=== PATIENT | female | born 1975 | race Caucasian/White ===

== ENCOUNTER 2017-06-29 10:04 | Emergency (ER) | payer MEDICAID, OTHER ==
[2017-06-29 10:48] LABS: Urine Bacteria 1+ (Absent); Urine Bilirubin Negative (Negative); Urine Glucose Negative (Negative); Urine Nitrite Negative (Negative)
[2017-06-29 12:25] LABS: Hematocrit 35 % (35-47); Mean Corpuscular HGB Conc 34 g/dl (31-36); Mean Corpuscular Hemoglobin 32 pg (27-31); Mean Corpuscular Volume 93 fL (80-97); Mean Platelet Volume 8 um3 (7.4-10.4); Red Blood Count 3.78 10^6/ul (4.0-5.4); Red Cell Distribution Width 13 % (10.5-15); White Blood Count 9.2 10^3/ul (3.5-10.8)
[2017-06-29 12:39] LABS: ALT 7 U/L (7-52); AST 12 U/L (13-39); Albumin 3.5 g/dL (3.2-5.2); Alkaline Phosphatase 82 U/L (34-104); Anion Gap 9 mmol/L (2-11); Blood Urea Nitrogen 13 mg/dL (6-24); CO2 Carbon Dioxide 22 mmol/L (22-32); Calcium 8.8 mg/dL (8.6-10.3); Chloride 105 mmol/L (101-111); EGFR African American 100.7 (>60); EGFR Non-African American 78.3 (>60); Globulin 3.2 g/dL (2-4); Glucose 81 mg/dL (70-100); Potassium 3.5 mmol/L (3.5-5.0); Sodium 136 mmol/L (133-145); Total Protein 6.7 g/dL (6.4-8.9)
[2017-06-29 12:44] LABS: Benzodiazepine Urine Screen Presumptive Positive (None Detect)
[2017-06-29 12:59] LABS: Acetaminophen < 15 mcg/mL; Alcohol < 10 mg/dL (<10); Salicylate < 2.50 mg/dL (<30)
[2017-06-29] MEDS ORDERED: Ondansetron ODT TAB* 4 MG SL ONE (13:27)
[2017-06-29 14:35] VITALS: BP 141/78
--- NOTE | 2017-06-29 16:24 | ED ---
Psychiatric Complaint - HPI Summary HPI Summary: Patient presents to the ED with a multitude of complaints. She states she has been having N/V x 3 days, back pain, seizures for over 2 weeks (6-8 per day) although no history of such, unable to focus, vomiting blood and not eating. Father sent her here for a "psych eval," but she declines this. She is unable to tell us specifically her main complaint and fails to make eye contact. She is on many medications for psych. Hx of depression which she states has been worsening. VS stable except for tachy on arrival which abruptly came down to 95 on recheck. She is unable to state why she is feeling this way. - History Of Current Complaint Chief Complaint: EDPsychosocial Time Seen by Provider: 06/29/17 10:13 Hx Obtained From: Patient ?: No Onset/Duration: Gradual Onset Timing: Constant Severity Initially: Moderate Severity Currently: Moderate Character: Depressed, Angry, Frustrated, Lethargic, Stuporous Aggravating Factor(s): Therapy Non-compliance Alleviating Factor(s): Nothing Associated Signs And Symptoms: Positive: Confused, Social Withdrawal Has Suicidal: Denies: Thoughts, With A Plan Has Homicidal: Denies: Thoughts, With A Plan - Risk Factor(s) Completed Suicide Risk Factors: Negative - Allergies/Home Medications Allergies/Adverse Reactions: Allergies Allergy/AdvReac Type Severity Reaction Status Date / Time Erythromycin Allergy Severe Swelling Verified 03/05/13 01:30 Morphine Allergy Severe Itching Verified 03/05/13 01:30 Nitrofurantoin Allergy Severe Swelling Verified 03/05/13 01:30 [From Macrobid] Metoclopramide [From Reglan] Allergy Intermediate Itching Verified 03/05/13 01: 30 NSAIDs Allergy Intermediate Bleeding Verified 03/05/13 01:30 Terbutaline Allergy Unknown Unknown Verified 03/05/13 01:30 Reaction Details PMH/Surg Hx/FS Hx/Imm Hx Previously Healthy: Yes Endocrine/Hematology History: Reports: Hx Blood Transfusions, Hx Thyroid Disease - hypothyoidism, Hx Anemia Denies: Hx Anticoagulant Therapy, Hx Diabetes Cardiovascular History: Reports: Hx Cardiac Arrest - multiple times during surgery, Other Cardiovascular Problems/Disorders - 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 Denies: Hx Congestive Heart Failure, Hx Hypertension, Hx Pacemaker/ICD Respiratory History: Denies: Hx Asthma, Hx Chronic Obstructive Pulmonary Disease (COPD) GI History: Reports: Hx Gall Bladder Disease - REMOVAL, Hx Gastroesophageal Reflux Disease, Hx Irritable Bowel, Hx Obstructive Bowel, Other GI Disorders - SBOx2, incarcerated hernia, gastric bypass, jeronimo, appy, hysterectomy History: Reports: Hx Acute Renal Failure Denies: Hx Dialysis, Hx Renal Disease, Other Problems/Disorders Musculoskeletal History: Reports: Hx Arthritis, Other Musculoskeletal History - carpal tunnel Sensory History: Reports: Hx Contacts or Glasses Denies: Hx Hearing Aid Opthamlomology History: Reports: Hx Contacts or Glasses Neurological History: Reports: Hx Headaches Denies: Hx Dementia, Hx Seizures, Other Neuro Impairments/Disorders Psychiatric History: Reports: Hx Depression Denies: Hx Panic Disorder, Hx Substance Abuse - Surgical History Surgery Procedure, Year, and Place: APPENDIX A CHILD,GALLBLADDER 10 YRS AGO, GASTRIC BYPASS 11 YRS AGO,TUBAL 2006,PARTIAL HYSTERECTOMY 2006,2 HERNIA SURGERIES,9 INTESTINAL SURGERYS IN 2008 DONE AT [facility] DUE TO COMPLICATIONS OF GASTRIC BYPASS SURGERY. APPENDECTOMY & CHOLESECETOMY. Hx Anesthesia Reactions: No - Immunization History Date of Tetanus Vaccine: uknown Date of Influenza Vaccine: last year Hx Pertussis Vaccination: No Immunizations Up to Date: Unable to Obtain/Confirm Infectious Disease History: No Infectious Disease History: Reports: Hx of Known/Suspected MRSA - PER RECORDS, Hx Shingles, Hx Known/Suspected VRE Denies: Hx Hepatitis, Hx Human Immunodeficiency Virus (HIV), Traveled Outside the [place] in Last 30 Days - Social History Occupation: Unemployed Lives: Alone Alcohol Use: Rare Hx Substance Use: No Substance Use Type: Reports: None Hx Tobacco Use: Yes Smoking Status (MU): Light Every Day Tobacco Smoker Have You Smoked in the Last Year: No Review of Systems Positive: Fatigue. Negative: Fever, Chills Eyes: Negative ENT: Negative Cardiovascular: Negative Negative: Shortness Of Breath, Cough Positive: Vomiting - hematemesis, Nausea. Negative: Abdominal Pain, Diarrhea Positive: no symptoms reported, see HPI Positive: Arthralgia - back pain Skin: Negative Neurological: Other - seizures Psychological: Normal All Other Systems Reviewed And Are Negative: Yes Physical Exam Triage Information Reviewed: Yes Vital Signs On Initial Exam: Initial Vitals Temp Pulse Resp BP Pulse Ox 97.7 F 130 17 138/65 97 06/29/17 10:05 06/29/17 10:05 06/29/17 10:05 06/29/17 10:05 06/29/17 10:05 Vital Signs Reviewed: Yes Appearance: Positive: Well-Appearing, Well-Nourished Skin: Positive: Warm, Skin Color Reflects Adequate Perfusion Head/Face: Positive: Normal Head/Face Inspection Eyes: Positive: EOMI, THI, Conjunctiva Clear Neck: Positive: Supple, No Lymphadenopathy Respiratory/Lung Sounds: Positive: Clear to Auscultation, Breath Sounds Present Cardiovascular: Positive: RRR, Pulses are Symmetrical in both Upper and Lower Extremities Abdomen Description: Positive: Soft Musculoskeletal: Positive: Strength/ROM Intact Neurological: Positive: Slurred Speech Psychiatric: Positive: Normal - Zakiya Coma Scale Coma Scale Total: 15 Diagnostics - Vital Signs Vital Signs Temp Pulse Resp BP Pulse Ox 06/29/17 14:33 98.3 F 98 16 141/78 100 06/29/17 10:05 97.7 F 130 17 138/65 97 - Laboratory Lab Results: Lab Results 06/29/17 06/29/17 06/29/17 Range/Units 10:20 10:20 10:20 WBC 9.2 (3.5-10.8) 10^3/ul RBC 3.78 L (4.0-5.4) 10^6/ul Hgb 12.0 (12.0-16.0) g/dl Hct 35 (35-47) % MCV 93 (80-97) fL MCH 32 H (27-31) pg MCHC 34 (31-36) g/dl RDW 13 (10.5-15) % Plt Count 247 (150-450) 10^3/ul MPV 8 (7.4-10.4) um3 Neut % (Auto) 79.7 (38-83) % Lymph % (Auto) 12.4 L (25-47) % [place] % (Auto) 7.0 (1-9) % Eos % (Auto) 0 (0-6) % Baso % (Auto) 0.9 (0-2) % Absolute Neuts (auto) 7.3 (1.5-7.7) 10^3/ul Absolute Lymphs (auto) 1.1 (1.0-4.8) 10^3/ul Absolute Monos (auto) 0.6 (0-0.8) 10^3/ul Absolute Eos (auto) 0 (0-0.6) 10^3/ul Absolute Basos (auto) 0.1 (0-0.2) 10^3/ul Absolute Nucleated RBC 0 10^3/ul Nucleated RBC % 0 Sodium 136 (133-145) mmol/L Potassium 3.5 (3.5-5.0) mmol/L Chloride 105 (101-111) mmol/L Carbon Dioxide 22 (22-32) mmol/L Anion Gap 9 (2-11) mmol/L BUN 13 (6-24) mg/dL Creatinine 0.81 (0.51-0.95) mg/dL Est GFR ( Amer) 100.7 (>60) Est GFR (Non-Af Amer) 78.3 (>60) BUN/Creatinine Ratio 16.0 (8-20) Glucose 81 (70-100) mg/dL Calcium 8.8 (8.6-10.3) mg/dL Total Bilirubin 0.60 (0.2-1.0) mg/dL AST 12 L (13-39) U/L ALT 7 (7-52) U/L Alkaline Phosphatase 82 (34-104) U/L Total Protein 6.7 (6.4-8.9) g/dL Albumin 3.5 (3.2-5.2) g/dL Globulin 3.2 (2-4) g/dL Albumin/Globulin Ratio 1.1 (1-3) TSH 3.30 (0.34-5.60) mcIU/mL Urine Color Yellow Urine Appearance Cloudy Urine pH 5.0 (5-9) Ur Specific [place] 1.021 (1.010-1.030) Urine Protein 2+(100 mg/dl) H (Negative) Urine Ketones Trace H (Negative) Urine Blood Negative (Negative) Urine Nitrate Negative (Negative) Urine Bilirubin Negative (Negative) Urine Urobilinogen Positive H (Negative) Ur Leukocyte Esterase Negative (Negative) Urine WBC (Auto) 1+(6-10/hpf) H (Absent) Urine RBC (Auto) 3+(>10/hpf) H (Absent) Ur Squamous Epith Cells Present H (Absent) Urine Bacteria 1+ H (Absent) Hyaline Casts Present H (Absent) Urine Glucose Negative (Negative) Salicylates < 2.50 (<30) mg/dL Urine Opiates Screen (None Detect) Acetaminophen < 15 mcg/mL Ur Barbiturates Screen (None Detect) Ur Phencyclidine Scrn (None Detect) Ur Amphetamines Screen (None Detect) U Benzodiazepines Scrn (None Detect) Urine Cocaine Screen (None Detect) U Cannabinoids Screen (None Detect) Serum Alcohol < 10 (<10) mg/dL 06/29/17 Range/Units 10:20 WBC (3.5-10.8) 10^3/ul RBC (4.0-5.4) 10^6/ul Hgb (12.0-16.0) g/dl Hct (35-47) % MCV (80-97) fL MCH (27-31) pg MCHC (31-36) g/dl RDW (10.5-15) % Plt Count (150-450) 10^3/ul MPV (7.4-10.4) um3 Neut % (Auto) (38-83) % Lymph % (Auto) (25-47) % [place] % (Auto) (1-9) % Eos % (Auto) (0-6) % Baso % (Auto) (0-2) % Absolute Neuts (auto) (1.5-7.7) 10^3/ul Absolute Lymphs (auto) (1.0-4.8) 10^3/ul Absolute Monos (auto) (0-0.8) 10^3/ul Absolute Eos (auto) (0-0.6) 10^3/ul Absolute Basos (auto) (0-0.2) 10^3/ul Absolute Nucleated RBC 10^3/ul Nucleated RBC % Sodium (133-145) mmol/L Potassium (3.5-5.0) mmol/L Chloride (101-111) mmol/L Carbon Dioxide (22-32) mmol/L Anion Gap (2-11) mmol/L BUN (6-24) mg/dL Creatinine (0.51-0.95) mg/dL Est GFR ( Amer) (>60) Est GFR (Non-Af Amer) (>60) BUN/Creatinine Ratio (8-20) Glucose (70-100) mg/dL Calcium (8.6-10.3) mg/dL Total Bilirubin (0.2-1.0) mg/dL AST (13-39) U/L ALT (7-52) U/L Alkaline Phosphatase (34-104) U/L Total Protein (6.4-8.9) g/dL Albumin (3.2-5.2) g/dL Globulin (2-4) g/dL Albumin/Globulin Ratio (1-3) TSH (0.34-5.60) mcIU/mL Urine Color Urine Appearance Urine pH (5-9) Ur Specific [place] (1.010-1.030) Urine Protein (Negative) Urine Ketones (Negative) Urine Blood (Negative) Urine Nitrate (Negative) Urine Bilirubin (Negative) Urine Urobilinogen (Negative) Ur Leukocyte Esterase (Negative) Urine WBC (Auto) (Absent) Urine RBC (Auto) (Absent) Ur Squamous Epith Cells (Absent) Urine Bacteria (Absent) Hyaline Casts (Absent) Urine Glucose (Negative) Salicylates (<30) mg/dL Urine Opiates Screen None detected (None Detect) Acetaminophen mcg/mL Ur Barbiturates Screen None detected (None Detect) Ur Phencyclidine Scrn None detected (None Detect) Ur Amphetamines Screen None detected (None Detect) U Benzodiazepines Scrn Presumptive positive H (None Detect) Urine Cocaine Screen None detected (None Detect) U Cannabinoids Screen None detected (None Detect) Serum Alcohol (<10) mg/dL Result Diagrams: 06/29/17 10:20 06/29/17 10:20 Lab Statement: Any lab studies that have been ordered have been reviewed, and results considered in the medical decision making process. Course/Dx - Course Course Of Treatment: Patient presents to the ED with a multitude of complaints. She states she has been having N/V x 3 days, back pain, seizures for over 2 weeks (6-8 per day) although no history of such, unable to focus, vomiting blood and not eating. Father sent her here for a "psych eval," but she declines this. She is unable to tell us specifically her main complaint and fails to make eye contact. She is on many medications for psych. Hx of depression which she states has been worsening. VS stable except for tachy on arrival which abruptly came down to 95 on recheck. She is unable to state why she is feeling this way. During the course of treatment, patient was offered zofran and tylenol both of which she declined. She is agreeable to a lab draw. Declines CT of the brain although states she has been having seizures and recently fell this morning and hit her head. When asked why she thinks she is having seizures, she becomes upset and states her son has seizures so she knows what they feel like. She states she has had 6 seizures since arriving in the ED , however RN, triage and provider all did not witness any seizure like activity. She states she needs medication for her back pain, but refuses tylenol when offered and begins to cry. I have discussed obtaining a CT and she becomes upset. I have offered psych consult and she abruptly states she does not want a psych consult and is not suicidal. Discussed her list of medications and likely the reason she is feeling that she is unable to concentrate is likely d/t the medications. She denies this and states if we are not willing to help her, she will just leave. She agrees to the 1 dose of zofran, but declines other offers. No vomiting was witneseed in the ED although she states she has vomited blood twice since arrival. There are no abrasions or bruising indicating a fall. She is discharged at this time and I have encouraged her to return if symptoms worsen. I have implored she stay and receive a psychiatric evaluation to which she again declines. - Differential Dx/Clinical Impression Differential Diagnosis/HQI/PQRI: Positive: Depression, Other - multiple complaints Provider Diagnosis: Back pain, Depressed Discharge - Discharge Plan Condition: Stable Disposition: HOME Referrals: Nguyễn CHOWDARY,Zac Velazquez [Primary Care Provider] - Additional Instructions: Please follow up with PCP
== END 2017-06-29 14:33 | disposition home or self-care (01) ==
LOC: ED 10:04
DX: M54.9 Dorsalgia, unspecified (principal); F32.9 Major depressive disorder, single episode, unspecified; F17.200 Nicotine dependence, unspecified, uncomplicated; Z88.6 Allergy status to analgesic agent; Z88.3 Allergy status to other anti-infective agents; Z88.8 Allergy status to other drugs, medicaments and biological substances
CPT/HCPCS: 36415; 80053; 80307; 80320; 80329; 81003; 81015; 84443; 85025; 87086; 99282; A9270-GY; G0480

== ENCOUNTER 2017-07-02 20:32 | Emergency (ER) | payer OTHER ==
[2017-07-02] MEDS ORDERED: LORazepam TAB(*) 1 MG PO ONE (21:37)
--- NOTE | 2017-07-02 21:41 | ED ---
Psychiatric Complaint - HPI Summary HPI Summary: 41F presents with suicidal ideation for past couple days. She states she has been more depressed lately. She denies any plan. She states two weeks ago she took some of her pills for a suicide attempt. She states she is having suicidal thoughts though. She normally goes to [facility] and is admitted there for . She lives with her dad and dad encouraged her to come into ED. She denies any drug or ETOH use. She saw her psychiatrist today. - History Of Current Complaint Chief Complaint: EDMentalHealth Time Seen by Provider: 07/02/17 21:29 - Allergies/Home Medications Allergies/Adverse Reactions: Allergies Allergy/AdvReac Type Severity Reaction Status Date / Time Erythromycin Allergy Severe Swelling Verified 07/02/17 20:40 Morphine Allergy Severe Itching Verified 07/02/17 20:40 Nitrofurantoin Allergy Severe Swelling Verified 07/02/17 20:40 [From Macrobid] Metoclopramide [From Reglan] Allergy Intermediate Itching Verified 07/02/17 20: 40 NSAIDs Allergy Intermediate Bleeding Verified 07/02/17 20:40 Terbutaline Allergy Unknown Unknown Verified 07/02/17 20:40 Reaction Details Home Medications: Home Medications clonazePAM TAB(*) [KlonoPIN TAB(*)] 0.5 mg PO BEDTIME PRN 07/02/17 [History Confirmed 07/02/17] PMH/Surg Hx/FS Hx/Imm Hx Endocrine/Hematology History: Reports: Hx Blood Transfusions, Hx Thyroid Disease - hypothyoidism, Hx Anemia Denies: Hx Anticoagulant Therapy, Hx Diabetes Cardiovascular History: Reports: Hx Cardiac Arrest - multiple times during surgery, Other Cardiovascular Problems/Disorders - 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 Denies: Hx Congestive Heart Failure, Hx Hypertension, Hx Pacemaker/ICD Respiratory History: Denies: Hx Asthma, Hx Chronic Obstructive Pulmonary Disease (COPD) GI History: Reports: Hx Gall Bladder Disease - REMOVAL, Hx Gastroesophageal Reflux Disease, Hx Irritable Bowel, Hx Obstructive Bowel, Other GI Disorders - SBOx2, incarcerated hernia, gastric bypass, jeronimo, appy, hysterectomy History: Reports: Hx Acute Renal Failure Denies: Hx Dialysis, Hx Renal Disease, Other Problems/Disorders Musculoskeletal History: Reports: Hx Arthritis, Other Musculoskeletal History - carpal tunnel Sensory History: Reports: Hx Contacts or Glasses Denies: Hx Hearing Aid Opthamlomology History: Reports: Hx Contacts or Glasses Neurological History: Reports: Hx Headaches Denies: Hx Dementia, Hx Seizures, Other Neuro Impairments/Disorders Psychiatric History: Reports: Hx Depression Denies: Hx Panic Disorder, Hx Substance Abuse - Surgical History Surgery Procedure, Year, and Place: APPENDIX A CHILD,GALLBLADDER 10 YRS AGO, GASTRIC BYPASS 11 YRS AGO,TUBAL 2006,PARTIAL HYSTERECTOMY 2006,2 HERNIA SURGERIES,9 INTESTINAL SURGERYS IN 2009 DONE AT [facility] DUE TO COMPLICATIONS OF GASTRIC BYPASS SURGERY. APPENDECTOMY & CHOLESECETOMY. Hx Anesthesia Reactions: No - Immunization History Date of Tetanus Vaccine: uknow Date of Influenza Vaccine: last year Infectious Disease History: Yes Infectious Disease History: Reports: Hx of Known/Suspected MRSA - PER RECORDS, Hx Shingles, Hx Known/Suspected VRE Denies: Hx Hepatitis, Hx Human Immunodeficiency Virus (HIV), Traveled Outside the [place] in Last 30 Days - Family History Known Family History: Positive: Other - no history of depression - Social History Alcohol Use: Rare Hx Substance Use: No Substance Use Type: Reports: None Hx Tobacco Use: Yes Smoking Status (MU): Light Every Day Tobacco Smoker Have You Smoked in the Last Year: No Review of Systems Negative: Fever Negative: Chest Pain Negative: Shortness Of Breath Positive: Depressed All Other Systems Reviewed And Are Negative: Yes Physical Exam Triage Information Reviewed: Yes Vital Signs On Initial Exam: Initial Vitals Temp Pulse Resp BP Pulse Ox 97.4 F 88 16 126/92 98 07/02/17 20:35 07/02/17 20:35 07/02/17 20:35 07/02/17 20:35 07/02/17 20:35 Vital Signs Reviewed: Yes Appearance: Positive: Well-Appearing Skin: Positive: Warm, Dry Head/Face: Positive: Normal Head/Face Inspection Eyes: Positive: Normal, Conjunctiva Clear Respiratory/Lung Sounds: Positive: Clear to Auscultation, Breath Sounds Present Cardiovascular: Positive: Normal, RRR Abdomen Description: Positive: Nontender, Soft Bowel Sounds: Positive: Present Musculoskeletal: Positive: Normal Neurological: Positive: Normal Psychiatric: Positive: Depressed Diagnostics - Vital Signs Vital Signs Temp Pulse Resp BP Pulse Ox 07/02/17 20:35 97.4 F 88 16 126/92 98 - Laboratory Result Diagrams: 07/02/17 22:06 07/02/17 22:06 Lab Statement: Any lab studies that have been ordered have been reviewed, and results considered in the medical decision making process. Re-Evaluation - Re-Evaluation First Eval Re-Evaluation Time: 21:42 Change: Unchanged Comment: requested something for anxiety Course/Dx - Course Course Of Treatment: 41F presents with suicidal ideation for past couple days. She states she has been more depressed lately. She denies any plan. She states two weeks ago she took some of her pills. She normally goes to [facility] and is admitted there for . She lives with her dad. She denies any drug or ETOH use. She saw her psychiatrist today. patient is medically clear for [facility]. patient signed out to dr Euceda pending MH re-evaulation in morning. - Differential Dx/Clinical Impression Differential Diagnosis/HQI/PQRI: Positive: Anxiety, Depression, Suicidal Ideation Provider Diagnosis: Depression Discharge - Discharge Plan Condition: Stable Disposition: OTHER Discharge Disposition Comment: signed out to dr euceda pending MH re-evulation in morning Referrals: Nguyễn CHOWDARY,Zac Velazquez [Primary Care Provider] -
[2017-07-02 22:22] LABS: Urine Appearance Cloudy; Urine Blood Negative (Negative); Urine Color Yellow; Urine Ketones Trace (Negative); Urine Protein 1+(30 mg/dL) (Negative); Urine Specific Gravity 1.026 (1.010-1.030); Urine Urobilinogen Positive (Negative)
[2017-07-02 22:30] LABS: ABS Basophils 0 10^3/ul (0-0.2); ABS Eosinophils 0.1 10^3/ul (0-0.6); ABS Lymphocytes 1.4 10^3/ul (1.0-4.8); ABS Monocytes 0.5 10^3/ul (0-0.8); ABS Neutrophils 6.1 10^3/ul (1.5-7.7); ABS Nucleated RBC 0.01 10^3/ul; Eosinophil % 0.6 % (0-6); Hematocrit 30 % (35-47); Hemoglobin 10.5 g/dl (12.0-16.0); Lymphocyte % 17.7 % (25-47); Mean Corpuscular HGB Conc 35 g/dl (31-36); Mean Corpuscular Hemoglobin 32 pg (27-31); Mean Corpuscular Volume 94 fL (80-97); Mean Platelet Volume 8 um3 (7.4-10.4); Nucleated Red Blood Cells % 0.1; Platelet Count 201 10^3/ul (150-450); Red Blood Count 3.25 10^6/ul (4.0-5.4); Red Cell Distribution Width 13 % (10.5-15); White Blood Count 8.2 10^3/ul (3.5-10.8)
[2017-07-02 22:40] LABS: EGFR Non-African American 110.7 (>60)
[2017-07-02 23:45] VITALS: BP 105/67
[2017-07-03] MEDS ORDERED: clonazePAM TAB(*) 0.5 MG PO ONE (00:14)
[2017-07-03] MEDS ORDERED: Zolpidem TAB* 10 MG PO ONE (00:14)
--- NOTE | 2017-07-03 03:03 | UC ---
IRoby Tecjoon, scribed for Erma Euceda MD on 07/03/17 at 0248 . - Consult/PCP Time Called: 20:30 Re-Evaluation - Re-Evaluation First Eval Re-Evaluation Time: 21:42 Change: Unchanged Comment: requested something for anxiety Course/Dx - Course Course Of Treatment: 41F presents with suicidal ideation for past couple days. She states she has been more depressed lately. She denies any plan. She states two weeks ago she took some of her pills. She normally goes to [facility] and is admitted there for . She lives with her dad. She denies any drug or ETOH use. She saw her psychiatrist today. patient is medically clear for [facility]. [facility] has diagnosed patient with psychosis. - Diagnoses Provider Diagnoses: Psychosis - Provider Notifications Instructed by Provider To: Other - admitted to [facility] The documentation as recorded by the Roby potter Tecjoon accurately reflects the service I personally performed and the decisions made by , Erma Euceda MD.
--- NOTE | 2017-07-03 10:17 | PN ---
Progress Note - Progress Note Date of Service: 07/03/17 Note: Psych Progress Note: Subjective: Patient denies any complaints or concerns at this time. Reports she is anxious at this time and would like something for anxiety. No additions to medical plan established for patient. Slept well. Eating and drinking OK. Objective: VS stable No change to current medications Alert and cooperative and resting comfortably. Appearance: WDW, comfortable, pleasant, alert Skin: Soft dry skin, no lesions. Eyes: THI, EOMI, Conjunctiva pink with no redness or exudates. Neck: Full range of motion. Pulm: Chest symmetrical expansion. No deformities on posterior chest wall. Lungs clear to auscultation and percussion, without adventitious sounds. CV: Heart soundsRRR, Normal S1 and single S2. No S3, S4, rubs, or murmurs. Musculoskeletal: ROM WNL in all extremities. No deformities noted. Neuro: A&OX3 Psych: Logical, coherent Assessment: Patient has participated in plan with compliance to medications while awaiting assessment. Dx at this time remains anxiety, increased depression and suicidal ideations. Plan: Continue mediations as prescribed. Will continue to monitor psych behaviors and need for any medication. Will provide a patient to provider assessment within every 24 hours during stay until safe discharge/transfer/ admission plan is established. At this time, plan to be discharge is this morning.
[2017-07-03] MEDS ORDERED: LORazepam TAB(*) 1 MG PO ONE (10:46)
== END 2017-07-03 11:43 ==
LOC: ED 20:32
DX: F29 Unspecified psychosis not due to a substance or known physiological condition (principal)
CPT/HCPCS: 36415; 80053; 80307; 80320; 80329; 81003; 81015; 84443; 85025; 99284; A9270-GY; G0480

== ENCOUNTER 2017-07-30 14:46 | Emergency (ER) | payer MEDICAID, OTHER ==
[2017-07-30] MEDS ORDERED: HYDROmorphone INJ* 2 MG/ML CARPUJECT SYRINGE IV SLOW PU ONE ×2 (16:43→21:28)
[2017-07-30 16:53] LABS: ABS Basophils 0 10^3/ul (0-0.2); ABS Eosinophils 0.1 10^3/ul (0-0.6); ABS Lymphocytes 1.7 10^3/ul (1.0-4.8); ABS Monocytes 0.5 10^3/ul (0-0.8); ABS Neutrophils 3.8 10^3/ul (1.5-7.7); ABS Nucleated RBC 0 10^3/ul; Eosinophil % 1.3 % (0-6); Hematocrit 30 % (35-47); Hemoglobin 10.4 g/dl (12.0-16.0); Lymphocyte % 27.6 % (25-47); Mean Corpuscular HGB Conc 34 g/dl (31-36); Mean Corpuscular Hemoglobin 32 pg (27-31); Mean Corpuscular Volume 93 fL (80-97); Mean Platelet Volume 9 um3 (7.4-10.4); Nucleated Red Blood Cells % 0; Platelet Count 187 10^3/ul (150-450); Red Blood Count 3.27 10^6/ul (4.0-5.4); Red Cell Distribution Width 14 % (10.5-15); White Blood Count 6.1 10^3/ul (3.5-10.8)
[2017-07-30 17:08] LABS: EGFR Non-African American 106.6 (>60)
[2017-07-30] MEDS ORDERED: Iohexol 300* (CONTRAST) 10 ML SDV IV ONE (19:36)
[2017-07-30] MEDS ORDERED: NS 0.9% 1000 ML* 2,000 ML IV ONE (19:42)
[2017-07-30 20:56] LABS: Urine Appearance Cloudy; Urine Blood Negative (Negative); Urine Color Yellow; Urine Ketones Negative (Negative); Urine Protein Negative (Negative); Urine Specific Gravity 1.017 (1.010-1.030); Urine Urobilinogen Positive (Negative)
--- NOTE | 2017-07-30 21:34 | RAD ---
Indication: Left upper quadrant pain contrast: Administered 97.2 ml of OMNIPAQUE 300 mg/ml CT of the abdomen and pelvis was performed after oral and IV contrast administration. Coronal and sagittal reconstructed images were obtained. The lung bases demonstrate no pleural fluid, nodules or masses. Heart is of normal size without evidence of pericardial effusion. The liver is normal in size. No focal lesions or intrahepatic ductal dilatation is noted. The spleen is normal in size. The patient status post cholecystectomy. The pancreas demonstrates no mass or pancreatic duct dilatation. The common duct is not dilated. No adrenal lesions are noted. The kidneys demonstrate symmetric nephrograms without focal lesions. No hydronephrosis is noted. No retroperitoneal lymphadenopathy is noted. No dilated loops of bowel are noted. There is contrast in the colon. Patient is status post gastric bypass surgery. Aorta and inferior vena cava are unremarkable. CT of the pelvis demonstrates no retroperitoneal or pelvic lymphadenopathy. No dilated loops of bowel are noted. There is stool throughout the colon. No hernias are noted. Patient is status post appendectomy. No free fluid is identified in the pelvis. The bony structures are grossly unremarkable. IMPRESSION: NO EVIDENCE OF BOWEL OBSTRUCTION. PATIENT IS STATUS POST CHOLECYSTECTOMY AND GASTRIC BYPASS SURGERY. NO ABNORMALLY DILATED LOOPS OF BOWEL ARE NOTED.
[2017-07-30] MEDS ORDERED: Sucralfate TAB* 1 GM PO ONE (22:18)
[2017-07-30 23:10] VITALS: BP 106/77
--- NOTE | 2017-08-11 14:12 | ED ---
Sanya Vital Stephanie, scribed for Aaron Felder MD on 07/30/17 at 1747 . Abdominal Pain/Female - HPI Summary HPI Summary: The pt is a 41 y/o F BIBA transferred from [facility] with severe LUQ pain and hematemesis. She was guaiac negative at [place]. H&H 10 at baseline. She was transferred because [place] CT scanner down. She requires CT abd/pelvis. The pt reports that her abd pain began 4 days ago on 07/26/17, is constant, and has gotten progressively worse. She reports that her abd pain radiates to her stomach and back. Symptoms include diaphoresis and dehydration. The pt has a history of gastric bypass. - History of Current Complaint Chief Complaint: EDAbdPain Stated Complaint: ABD PAIN FROM MALCOM Time Seen by Provider: 07/30/17 16:02 Hx Obtained From: Patient Onset/Duration: Lasting Days - 4, Still Present Timing: Constant Pain Intensity: 10 Pain Scale Used: 0-10 Numeric Location: Discrete At: LUQ Radiates: Yes Radiates to: Back, Other - diffusely through abdomen Aggravating Factor(s): Nothing Alleviating Factor(s): Nothing Associated Signs and Symptoms: Positive: Diaphoresis, Vomiting - bloody, Other: - dehydration Allergies/Adverse Reactions: Allergies Allergy/AdvReac Type Severity Reaction Status Date / Time Erythromycin Allergy Severe Swelling Verified 07/02/17 20:40 Morphine Allergy Severe Itching Verified 07/02/17 20:40 Nitrofurantoin Allergy Severe Swelling Verified 07/02/17 20:40 [From Macrobid] Metoclopramide [From Reglan] Allergy Intermediate Itching Verified 07/02/17 20: 40 NSAIDs Allergy Intermediate Bleeding Verified 07/02/17 20:40 Terbutaline Allergy Unknown Unknown Verified 07/02/17 20:40 Reaction Details Home Medications: Home Medications Folic Acid TAB* [Folvite TAB*] 1 mg PO DAILY 07/30/17 [History Confirmed ] QUEtiapine TAB* [SEROquel TAB*] 25 mg PO BID 07/30/17 [History Confirmed ] buPROPion TAB* [Wellbutrin TAB*] 300 mg PO DAILY 07/30/17 [History Confirmed ] hydrOXYzine HCL TAB* [Atarax 25 MG TAB*] 25 mg PO BID 07/30/17 [History Confirmed 07/30/17] risperiDONE TAB* [RisperDAL*] 3 mg PO DAILY 07/30/17 [History Confirmed 07/30/17 ] PMH/Surg Hx/FS Hx/Imm Hx Endocrine/Hematology History: Reports: Hx Blood Transfusions, Hx Thyroid Disease - hypothyoidism, Hx Anemia Denies: Hx Anticoagulant Therapy, Hx Diabetes Cardiovascular History: Reports: Hx Cardiac Arrest - multiple times during surgery, Other Cardiovascular Problems/Disorders - 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 Denies: Hx Congestive Heart Failure, Hx Hypertension, Hx Pacemaker/ICD Respiratory History: Denies: Hx Asthma, Hx Chronic Obstructive Pulmonary Disease (COPD) GI History: Reports: Hx Gall Bladder Disease - REMOVAL, Hx Gastroesophageal Reflux Disease, Hx Irritable Bowel, Hx Obstructive Bowel, Other GI Disorders - SBOx2, incarcerated hernia, gastric bypass, jeronimo, appy, hysterectomy History: Reports: Hx Acute Renal Failure Denies: Hx Dialysis, Hx Renal Disease, Other Problems/Disorders Musculoskeletal History: Reports: Hx Arthritis, Other Musculoskeletal History - carpal tunnel Sensory History: Reports: Hx Contacts or Glasses Denies: Hx Hearing Aid Opthamlomology History: Reports: Hx Contacts or Glasses Neurological History: Reports: Hx Headaches Denies: Hx Dementia, Hx Seizures, Other Neuro Impairments/Disorders Psychiatric History: Reports: Hx Depression Denies: Hx Eating Disorder, Hx Panic Disorder, Hx Substance Abuse - Surgical History Surgery Procedure, Year, and Place: APPENDIX A CHILD,GALLBLADDER 10 YRS AGO, GASTRIC BYPASS 11 YRS AGO,TUBAL 2006,PARTIAL HYSTERECTOMY 2006,2 HERNIA SURGERIES,9 INTESTINAL SURGERYS IN 2008 DONE AT [facility] DUE TO COMPLICATIONS OF GASTRIC BYPASS SURGERY. APPENDECTOMY & CHOLESECETOMY. Hx Anesthesia Reactions: No - Immunization History Date of Tetanus Vaccine: nown Date of Influenza Vaccine: last year Infectious Disease History: No Infectious Disease History: Reports: Hx of Known/Suspected MRSA - PER RECORDS, Hx Shingles, Hx Known/Suspected VRE Denies: Hx Hepatitis, Hx Human Immunodeficiency Virus (HIV), Traveled Outside the US in Last 30 Days - Family History Known Family History: Positive: Unknown - Pt denies any family history. , Other - no history of depression - Social History Occupation: Unemployed Lives: With Family Alcohol Use: Rare Hx Substance Use: No Substance Use Type: Reports: None Hx Tobacco Use: Yes Smoking Status (MU): Light Every Day Tobacco Smoker Have You Smoked in the Last Year: No Review of Systems Positive: Skin Diaphoresis, Other - dehydration. Negative: Fever, Chills Negative: Erythema Negative: Sore Throat Negative: Chest Pain Negative: Shortness Of Breath, Cough Positive: Abdominal Pain, Vomiting - with blood. Negative: Nausea Negative: dysuria, hematuria Positive: Other - back pain. Negative: Myalgia, Edema Negative: Rash Neurological: Other - Negative: dizziness All Other Systems Reviewed And Are Negative: Yes Physical Exam - Summary Physical Exam Summary: Constitutional: Well-developed, Well-nourished, Alert. (-) Distressed Skin: Warm, Dry HENT: Normocephalic; Atraumatic Eyes: Conjunctiva normal Neck: Musculoskeletal ROM normal neck. (-) JVD, (-) Stridor, (-) Tracheal deviation Cardio: Rhythm regular, rate normal, Heart sounds normal; Intact distal pulses; The pedal pulses are 2+ and symmetric. Radial pulses are 2+ and symmetric. (-) Murmur Pulmonary/Chest wall: Effort normal. (-) Respiratory distress, (-) Wheezes, (-) Rales Abd: Soft, (-) Distension, (-) Guarding, (-) Rebound, pt reports pain with very light palpation. Unable to localize pain on exam. Musculoskeletal: (-) Edema Lymph: (-) Cervical adenopathy Neuro: Alert, Oriented x3 Psych: Mood and affect Normal Triage Information Reviewed: Yes Vital Signs On Initial Exam: Initial Vitals Temp Pulse Resp BP Pulse Ox 98.5 F 63 16 101/58 96 07/30/17 14:56 07/30/17 14:56 07/30/17 14:56 07/30/17 14:56 07/30/17 14:56 Vital Signs Reviewed: Yes Diagnostics - Vital Signs Vital Signs Temp Pulse Resp BP Pulse Ox 07/30/17 17:32 20 07/30/17 14:56 98.5 F 63 16 101/58 96 - Laboratory Lab Results: Lab Results 07/30/17 07/30/17 07/30/17 Range/Units 16:40 16:40 16:40 WBC 6.1 (3.5-10.8) 10^3/ul RBC 3.27 L (4.0-5.4) 10^6/ul Hgb 10.4 L (12.0-16.0) g/dl Hct 30 L (35-47) % MCV 93 (80-97) fL MCH 32 H (27-31) pg MCHC 34 (31-36) g/dl RDW 14 (10.5-15) % Plt Count 187 (150-450) 10^3/ul MPV 9 (7.4-10.4) um3 Neut % (Auto) 62.5 (38-83) % Lymph % (Auto) 27.6 (25-47) % [place] % (Auto) 8.1 (1-9) % Eos % (Auto) 1.3 (0-6) % Baso % (Auto) 0.5 (0-2) % Absolute Neuts (auto) 3.8 (1.5-7.7) 10^3/ul Absolute Lymphs (auto) 1.7 (1.0-4.8) 10^3/ul Absolute Monos (auto) 0.5 (0-0.8) 10^3/ul Absolute Eos (auto) 0.1 (0-0.6) 10^3/ul Absolute Basos (auto) 0 (0-0.2) 10^3/ul Absolute Nucleated RBC 0 10^3/ul Nucleated RBC % 0 Sodium 138 (133-145) mmol/L Potassium 3.5 (3.5-5.0) mmol/L Chloride 110 (101-111) mmol/L Carbon Dioxide 24 (22-32) mmol/L Anion Gap 4 (2-11) mmol/L BUN 9 (6-24) mg/dL Creatinine 0.62 (0.51-0.95) mg/dL Est GFR ( Amer) 137.1 (>60) Est GFR (Non-Af Amer) 106.6 (>60) BUN/Creatinine Ratio 14.5 (8-20) Glucose 81 (70-100) mg/dL Lactic Acid 0.5 (0.5-2.0) mmol/L Calcium 7.9 L (8.6-10.3) mg/dL Total Bilirubin 0.50 (0.2-1.0) mg/dL AST 8 L (13-39) U/L ALT 3 L (7-52) U/L Alkaline Phosphatase 55 (34-104) U/L C-Reactive Protein < 1.00 (< 5.00) mg/L Total Protein 4.8 L (6.4-8.9) g/dL Albumin 2.5 L (3.2-5.2) g/dL Globulin 2.3 (2-4) g/dL Albumin/Globulin Ratio 1.1 (1-3) Lipase 18 (11.0-82.0) U/L Result Diagrams: 07/30/17 16:40 07/30/17 16:40 Lab Statement: Any lab studies that have been ordered have been reviewed, and results considered in the medical decision making process. - CT Abdomen/Pelvis CT Interpretation: No Acute Changes CT Interpretation Completed By: Radiologist - NO EVIDENCE OF BOWEL OBSTRUCTION. PATIENT IS STATUS POST CHOLECYSTECTOMY AND GASTRIC BYPASS SURGERY. NO ABNORMALLY DILATED LOOPS OF BOWEL ARE NOTED. Re-Evaluation - Re-Evaluation First Eval Re-Evaluation Time: 22:24 Change: Improved - ED physician reviewed test results with the pt. No pain reported. No tenderness. Pt demonstrated interest in eating and drinking. Abdominal Pain Fem Course/Dx - Course Course Of Treatment: CT negative. Exam improved throughout the day. Significant history of substance abuse, opiate dependence and drug seeking behavior. Pt tolerating PO. RETURN TO THE EMERGENCY DEPARTMENT FOR CHANGING OR WORSENING SYMPTOMS. - Diagnoses Provider Diagnoses: Epigastric abdominal pain Discharge - Discharge Plan Condition: Stable Disposition: HOME Prescriptions: Sucralfate TAB* [Carafate*] 1 gm PO BID #30 tab Patient Education Materials: Epigastric Pain (ED) Referrals: Troy Stanley MD [Medical Doctor] - Nguyễn CHOWDARY,Zac Velazquez [Primary Care Provider] - [facility] [place] [facility] [Outside] The documentation as recorded by the Sanya potter Stephanie accurately reflects the service I personally performed and the decisions made by , Aaron Felder MD.
== END 2017-07-30 23:09 | disposition home or self-care (01) ==
LOC: ED 14:46
DX: R10.13 Epigastric pain (principal); R11.10 Vomiting, unspecified; R10.12 Left upper quadrant pain; F17.210 Nicotine dependence, cigarettes, uncomplicated
CPT/HCPCS: 36415; 74177; 80053; 81003; 83605; 83690; 85025; 86140; 87040; 96374; 96375; 99283; A9270-GY; J1170; Q9967

== ENCOUNTER 2018-12-19 16:09 | Emergency (ER) | payer MEDICAID, OTHER ==
[2018-12-19] MEDS ORDERED: Ondansetron INJ* 2 MG/ML VIAL IV ONE ×2 (18:01→19:19)
[2018-12-19] MEDS ORDERED: NS 0.9% 1000 ML** 1,000 ML IV ONE (18:01)
[2018-12-19] MEDS ORDERED: Morphine 4 MG/ML VIAL (1 ml) 4 MG/ML VIAL IV ONE (18:02)
[2018-12-19 18:26] LABS: INR 1.38 (0.82-1.09)
[2018-12-19 18:27] LABS: Albumin 1.7 g/dL (3.2-5.2); Albumin/Globulin Ratio 0.7 (1-3); BUN/Creatinine Ratio 17.2 (8-20); C Reactive Protein 4.94 mg/L (<8.01); Calcium 7.1 mg/dL (8.6-10.3); EGFR African American 123.1 (>60); EGFR Non-African American 101.8 (>60); Globulin 2.4 g/dL (2-4); Magnesium 1.6 mg/dL (1.9-2.7); Potassium 3.1 mmol/L (3.5-5.0); Total Bilirubin 0.5 mg/dL (0.2-1.0); Total Protein 4.1 g/dL (6.4-8.9)
[2018-12-19 18:31] LABS: HCG Pregnancy 2.15 mIU/mL
[2018-12-19 18:32] LABS: ABS Basophils 0.1 10^3/ul (0-0.2); ABS Lymphocytes 1.2 10^3/ul (1.0-4.8); ABS Monocytes 0.3 10^3/ul (0-0.8); ABS Neutrophils 2.7 10^3/ul (1.5-7.7); Eosinophil % 0.2 %; Hematocrit 27 % (35-47); Hemoglobin 8.7 g/dL (12.0-16.0); Lymphocyte % 28.3 %; Mean Corpuscular HGB Conc 32 g/dL (31-36); Mean Corpuscular Hemoglobin 34 pg (27-31); Mean Corpuscular Volume 105 fL (80-97); Mean Platelet Volume 8.6 fL (7.4-10.4); Platelet Count 299 10^3/uL (150-450); Red Blood Count 2.55 10^6 /uL (3.70-4.87); Red Cell Distribution Width 22 % (10-15); White Blood Count 4.3 10^3/uL (3.5-10.8)
[2018-12-19 18:58] LABS: TSH (Thyroid Stimulating Horm) 9.54 mcIU/mL (0.34-5.60)
[2018-12-19] MEDS ORDERED: Potassium Chlor TAB* 20 MEQ TAB.ER PO ONE (19:04)
[2018-12-19] MEDS ORDERED: Magnesium Sulfate 2 GM IV* 2 GM/50 ML BAG IVPB ONE (19:05)
[2018-12-19] MEDS ORDERED: Ondansetron INJ* 2 MG/ML VIAL ONE (19:16)
[2018-12-19] MEDS ORDERED: Iodixanol* (CONTRAST) 320 MG/ML 100 ML SDV IV ONE (19:51)
--- NOTE | 2018-12-19 22:08 | ED ---
Shortness of Breath - HPI Summary HPI Summary: Patient complains of shortness of breath, increasing peripheral edema, left side chest pain and left upper quadrant pain and decreased urine output 6 days. States discharge from our Hospital in [place] 6 days ago after admission for pneumonia. Patient also complains of difficulty walking due to pain and lower extremities. Denies fever, cough, sore throat, N/V/D, change in urine, change in BM, vaginal symptoms. Medical history is bipolar, PTSD, chronic pain. History of gastric bypass 2001. - History of Current Complaint Chief Complaint: EDWeakness Time Seen by Provider: 12/19/18 17:03 Hx Obtained From: Patient Onset/Duration: Gradual Onset, Lasting Days Current Severity: Moderate Dyspnea At: Exertion Alleviating Factors: Nothing Associated Signs & Symptoms: Negative - Allergy/Home Medications Allergies/Adverse Reactions: Allergies Allergy/AdvReac Type Severity Reaction Status Date / Time erythromycin base Allergy Swelling Verified 12/19/18 16:20 metoclopramide [From Reglan] Allergy Itching Verified 12/19/18 16:20 nitrofurantoin Allergy Swelling Verified 12/19/18 16:20 [From Macrobid] NSAIDS (Non-Steroidal Allergy Bleeding Verified 12/19/18 16:20 Anti-Inflamma terbutaline Allergy Unknown Verified 12/19/18 16:20 Reaction Details PMH/Surg Hx/FS Hx/Imm Hx Endocrine/Hematology History: Reports: Hx Blood Transfusions, Hx Thyroid Disease - hypothyoidism, Hx Anemia Denies: Hx Anticoagulant Therapy, Hx Diabetes Cardiovascular History: Reports: Hx Cardiac Arrest - multiple times during surgery, Other Cardiovascular Problems/Disorders - 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 Denies: Hx Congestive Heart Failure, Hx Hypertension, Hx Pacemaker/ICD Respiratory History: Denies: Hx Asthma, Hx Chronic Obstructive Pulmonary Disease (COPD) GI History: Reports: Hx Gall Bladder Disease - REMOVAL, Hx Gastroesophageal Reflux Disease, Hx Irritable Bowel, Hx Obstructive Bowel, Other GI Disorders - SBOx2, incarcerated hernia, gastric bypass, jeronimo, appy, hysterectomy History: Reports: Hx Acute Renal Failure, Hx Renal Disease - ACUTE RENAL FAILURE 2018 Denies: Hx Dialysis, Other Problems/Disorders Musculoskeletal History: Reports: Hx Arthritis, Other Musculoskeletal History - carpal tunnel Sensory History: Reports: Hx Contacts or Glasses Denies: Hx Hearing Aid Opthamlomology History: Reports: Hx Contacts or Glasses Neurological History: Reports: Hx Headaches Denies: Hx Dementia, Hx Seizures, Other Neuro Impairments/Disorders Psychiatric History: Reports: Hx Depression Denies: Hx Eating Disorder, Hx Panic Disorder, Hx Substance Abuse - Surgical History Surgery Procedure, Year, and Place: APPENDIX A CHILD,GALLBLADDER 10 YRS AGO, GASTRIC BYPASS 11 YRS AGO,TUBAL 2006,PARTIAL HYSTERECTOMY 2006,2 HERNIA SURGERIES,9 INTESTINAL SURGERYS IN 2009 DONE AT [facility] DUE TO COMPLICATIONS OF GASTRIC BYPASS SURGERY. APPENDECTOMY & CHOLESECETOMY. Hx Anesthesia Reactions: No - Immunization History Date of Tetanus Vaccine: uknow Date of Influenza Vaccine: last year Infectious Disease History: No Infectious Disease History: Reports: Hx of Known/Suspected MRSA - PER RECORDS, Hx Shingles, Hx Known/Suspected VRE Denies: Hx Hepatitis, Hx Human Immunodeficiency Virus (HIV), Traveled Outside the US in Last 30 Days - Family History Known Family History: Positive: Unknown - Pt denies any family history. , Other - no history of depression - Social History Alcohol Use: Rare Hx Substance Use: No Substance Use Type: Reports: None Hx Tobacco Use: Yes Smoking Status (MU): Light Every Day Tobacco Smoker Have You Smoked in the Last Year: No Review of Systems Constitutional: Negative Eyes: Negative ENT: Negative Positive: Chest Pain Positive: Shortness Of Breath Positive: Abdominal Pain Genitourinary: Negative Musculoskeletal: Negative Skin: Negative Neurological: Negative Psychological: Normal All Other Systems Reviewed And Are Negative: Yes Physical Exam - Summary Physical Exam Summary: Lung sounds clear to auscultation bilaterally. RRR. Abdomen tender on left side. Right side abdomen normal exam. Chest pain not reproducible. 1+ pitting edema bilaterally lower extremities. Triage Information Reviewed: Yes Vital Signs On Initial Exam: Initial Vitals Temp Pulse Resp BP Pulse Ox 99.9 F 108 20 95/74 99 12/19/18 16:13 12/19/18 16:13 12/19/18 16:13 12/19/18 16:13 12/19/18 16:13 Vital Signs Reviewed: Yes Appearance: Positive: Well-Appearing Skin: Positive: Warm Head/Face: Positive: Normal Head/Face Inspection Eyes: Positive: Normal Neck: Positive: Supple Respiratory/Lung Sounds: Positive: Clear to Auscultation Cardiovascular: Positive: Normal Abdomen Description: Positive: Other: Musculoskeletal: Positive: Normal Neurological: Positive: Normal Psychiatric: Positive: Normal AVPU Assessment: Alert - [place] Coma Scale Best Eye Response: 4 - Spontaneous Best Motor Response: 6 - Obeys Commands Best Verbal Response: 5 - Oriented Coma Scale Total: 15 Diagnostics - Vital Signs Vital Signs Temp Pulse Resp BP Pulse Ox 12/19/18 19:37 81 19 106/79 98 12/19/18 19:07 80 8 115/79 99 12/19/18 19:00 81 14 100 12/19/18 18:37 83 12 112/76 99 12/19/18 18:07 16 12/19/18 18:06 82 18 108/75 97 12/19/18 18:00 82 4 98 12/19/18 17:37 81 8 94/72 96 12/19/18 17:36 14 12/19/18 16:13 99.9 F 108 20 95/74 99 - Laboratory Lab Results: Lab Results 12/19/18 12/19/18 12/19/18 Range/Units 17:44 17:56 17:58 WBC 4.3 (3.5-10.8) 10^3/uL RBC 2.55 L (3.70-4.87) 10^6 /uL Hgb 8.7 L (12.0-16.0) g/dL Hct 27 L (35-47) % MCV 105 H (80-97) fL MCH 34 H (27-31) pg MCHC 32 (31-36) g/dL RDW 22 H (10-15) % Plt Count 299 (150-450) 10^3/uL MPV 8.6 (7.4-10.4) fL Neut % (Auto) 62.5 % Lymph % (Auto) 28.3 % [place] % (Auto) 7.8 % Eos % (Auto) 0.2 % Baso % (Auto) 1.2 % Absolute Neuts (auto) 2.7 (1.5-7.7) 10^3/ul Absolute Lymphs (auto) 1.2 (1.0-4.8) 10^3/ul Absolute Monos (auto) 0.3 (0-0.8) 10^3/ul Absolute Eos (auto) 0.0 (0-0.6) 10^3/ul Absolute Basos (auto) 0.1 (0-0.2) 10^3/ul Absolute Nucleated RBC 0.0 10^3/ul Nucleated RBC % 0.0 INR (Anticoag Therapy) (0.82-1.09) Sodium (135-145) mmol/L Potassium (3.5-5.0) mmol/L Chloride (101-111) mmol/L Carbon Dioxide (22-32) mmol/L Anion Gap (2-11) mmol/L BUN (6-24) mg/dL Creatinine (0.51-0.95) mg/dL Est GFR ( Amer) (>60) Est GFR (Non-Af Amer) (>60) BUN/Creatinine Ratio (8-20) Glucose (70-100) mg/dL Lactic Acid (0.5-2.0) mmol/L Calcium (8.6-10.3) mg/dL Magnesium (1.9-2.7) mg/dL Total Bilirubin (0.2-1.0) mg/dL AST (13-39) U/L ALT (7-52) U/L Alkaline Phosphatase (34-104) U/L Troponin I 0.00 (<0.04) ng/mL C-Reactive Protein (<8.01) mg/L B-Natriuretic Peptide 25 (<=100) pg/mL Total Protein (6.4-8.9) g/dL Albumin (3.2-5.2) g/dL Globulin (2-4) g/dL Albumin/Globulin Ratio (1-3) Lipase (11.0-82.0) U/L TSH (0.34-5.60) mcIU/mL Beta HCG, Quant mIU/mL 12/19/18 12/19/18 12/19/18 Range/Units 17:58 17:58 17:58 WBC (3.5-10.8) 10^3/uL RBC (3.70-4.87) 10^6 /uL Hgb (12.0-16.0) g/dL Hct (35-47) % MCV (80-97) fL MCH (27-31) pg MCHC (31-36) g/dL RDW (10-15) % Plt Count (150-450) 10^3/uL MPV (7.4-10.4) fL Neut % (Auto) % Lymph % (Auto) % [place]da % (Auto) % Eos % (Auto) % Baso % (Auto) % Absolute Neuts (auto) (1.5-7.7) 10^3/ul Absolute Lymphs (auto) (1.0-4.8) 10^3/ul Absolute Monos (auto) (0-0.8) 10^3/ul Absolute Eos (auto) (0-0.6) 10^3/ul Absolute Basos (auto) (0-0.2) 10^3/ul Absolute Nucleated RBC 10^3/ul Nucleated RBC % INR (Anticoag Therapy) 1.38 H (0.82-1.09) Sodium 141 (135-145) mmol/L Potassium 3.1 L (3.5-5.0) mmol/L Chloride 112 H (101-111) mmol/L Carbon Dioxide 23 (22-32) mmol/L Anion Gap 6 (2-11) mmol/L BUN 11 (6-24) mg/dL Creatinine 0.64 (0.51-0.95) mg/dL Est GFR ( Amer) 123.1 (>60) Est GFR (Non-Af Amer) 101.8 (>60) BUN/Creatinine Ratio 17.2 (8-20) Glucose 88 (70-100) mg/dL Lactic Acid 1.6 (0.5-2.0) mmol/L Calcium 7.1 L (8.6-10.3) mg/dL Magnesium 1.6 L (1.9-2.7) mg/dL Total Bilirubin 0.50 (0.2-1.0) mg/dL AST 38 (13-39) U/L ALT 28 (7-52) U/L Alkaline Phosphatase 109 H (34-104) U/L Troponin I (<0.04) ng/mL C-Reactive Protein 4.94 (<8.01) mg/L B-Natriuretic Peptide (<=100) pg/mL Total Protein 4.1 L (6.4-8.9) g/dL Albumin 1.7 L (3.2-5.2) g/dL Globulin 2.4 (2-4) g/dL Albumin/Globulin Ratio 0.7 L (1-3) Lipase 15 (11.0-82.0) U/L TSH 9.54 H (0.34-5.60) mcIU/mL Beta HCG, Quant 2.15 mIU/mL 12/19/18 Range/Units 20:33 WBC (3.5-10.8) 10^3/uL RBC (3.70-4.87) 10^6 /uL Hgb (12.0-16.0) g/dL Hct (35-47) % MCV (80-97) fL MCH (27-31) pg MCHC (31-36) g/dL RDW (10-15) % Plt Count (150-450) 10^3/uL MPV (7.4-10.4) fL Neut % (Auto) % Lymph % (Auto) % [place]da % (Auto) % Eos % (Auto) % Baso % (Auto) % Absolute Neuts (auto) (1.5-7.7) 10^3/ul Absolute Lymphs (auto) (1.0-4.8) 10^3/ul Absolute Monos (auto) (0-0.8) 10^3/ul Absolute Eos (auto) (0-0.6) 10^3/ul Absolute Basos (auto) (0-0.2) 10^3/ul Absolute Nucleated RBC 10^3/ul Nucleated RBC % INR (Anticoag Therapy) (0.82-1.09) Sodium (135-145) mmol/L Potassium (3.5-5.0) mmol/L Chloride (101-111) mmol/L Carbon Dioxide (22-32) mmol/L Anion Gap (2-11) mmol/L BUN (6-24) mg/dL Creatinine (0.51-0.95) mg/dL Est GFR ( Amer) (>60) Est GFR (Non-Af Amer) (>60) BUN/Creatinine Ratio (8-20) Glucose (70-100) mg/dL Lactic Acid (0.5-2.0) mmol/L Calcium (8.6-10.3) mg/dL Magnesium (1.9-2.7) mg/dL Total Bilirubin (0.2-1.0) mg/dL AST (13-39) U/L ALT (7-52) U/L Alkaline Phosphatase (34-104) U/L Troponin I 0.00 (<0.04) ng/mL C-Reactive Protein (<8.01) mg/L B-Natriuretic Peptide (<=100) pg/mL Total Protein (6.4-8.9) g/dL Albumin (3.2-5.2) g/dL Globulin (2-4) g/dL Albumin/Globulin Ratio (1-3) Lipase (11.0-82.0) U/L TSH (0.34-5.60) mcIU/mL Beta HCG, Quant mIU/mL Result Diagrams: 12/19/18 17:58 12/19/18 17:58 Lab Statement: Any lab studies that have been ordered have been reviewed, and results considered in the medical decision making process. Course/Dx - Course Course Of Treatment: Patient complains of shortness of breath, increasing peripheral edema, left side chest pain and left upper quadrant pain and decreased urine output 6 days. States discharge from our [facility] in [place] 6 days ago after admission for pneumonia. Patient also complains of difficulty walking due to pain and lower extremities. Denies fever, cough, sore throat, N/V/D, change in urine, change in BM, vaginal symptoms. Medical history is bipolar, PTSD, chronic pain. History of gastric bypass 2001. Physical exam:Lung sounds clear to auscultation bilaterally. RRR. Abdomen tender on left side. Right side abdomen normal exam. Chest pain not reproducible. 1+ pitting edema bilaterally lower extremities. Vital signs within normal limits. Hgb 8.7. Potassium 3.1. Mag 1.6. TSH 9.54. Labs otherwise unremarkable. EKG sinus rhythm. CT abdomen and pelvis positive for multifocal infiltrates, otherwise negative. for admission from our [facility] and patient was discharged with multifocal eventuates after one week of IV antibiotics. Discussed patient with hospitalist who states infiltrates likely remaining presence of recent pneumonia. Hospitalist sees no indication for admission. Separate note by hospitalist. Hospitalist recommends no further antibiotic treatment. Patient discharged on Lasix 20 mg daily. Follow-up with primary care. Patient understands and approves with plan. - Diagnoses Provider Diagnoses: Pleural effusion, Peripheral edema, Chest pain, Intermittent left upper quadrant abdominal pain Discharge - Sign-Out/Discharge Documenting (check all that apply): Patient Departure Patient Received Moderate/Deep Sedation with Procedure: No - Discharge Plan Condition: Stable Disposition: HOME Prescriptions: Furosemide TAB* [Lasix TAB*] 20 mg PO DAILY 20 Days #20 tab Patient Education Materials: Pleural Effusion (ED), Leg Edema (ED) Referrals: Nguyễn CHOWDARY,Zac Velazquez [Primary Care Provider] - Visiting Nurse Brandee [, APPLICATION, OTHER] - Additional Instructions: Take Lasix 20 mg once daily. Follow-up with primary care for body fluid management. Return to the ED for any new or worsening symptoms. - Billing Disposition and Condition Condition: STABLE Disposition: Home
--- NOTE | 2018-12-19 22:16 | CONSULT ---
Subjective Date of Service: 12/19/18 Interval History: Asked to evaluate patient by EM provider for possible antibiotics. Pt is a 43 year old woman with psych disorder NOS, gastric bypass, vitamin B12 deficiency, hypothyroid, chronic abdominal pain, recent discharge from [facility] for PNA, who is presenting now with SOB and weakness. She states that this started prior to her admission for PNA and improved with antibiotics but hasn't completely resolved. She states that she has chronic LE edema and is "retaining fluid". She has heard of Lasix but doesn't think it's one of her medications. She currently lives at home with her father and doesn't have to use stairs. She was supposed to be discharged to rehab from her last hospitalization but refused. She states she was not offered home PT. She currently meets zero SIRS criteria. She denies cough, has no new O2 requirement, and her CRP is normal. Family History: Findings - reviewed and noncontributory Social History: Findings - lives with her father, denies tob/etoh/illicits; reports she is now seperated from her Past Medical History: Findings - gastric bypass, vitamin B12 deficiency, hypothyroid, chronic abdominal pain, cholecystecomy, SMA repair Review of Systems - Measurements Intake and Output: Intake and Output Last 24 Hours 12/17/18 12/18/18 12/19/18 12/20/18 06:59 06:59 06:59 06:59 Intake Total 1000 Balance 1000 Weight 170 lb Intake: IV Fluids 1000 - Review of Systems Constitutional Symptoms: Positive: Fatigue Negative: Weight Gain, Weight Loss, Weakness, Fever, Night Sweats, Unexplained Falls Dermatology: Positive: Normal HEENT: Positive: Normal Negative: Vertigo Eyes: Negative: Change in Vision, Double Vision Thyroid: Negative: Cold Intolerance, Constipation, Weight Gain, Change in Skin/Hair Cardiology: Positive: Shortness of Breath, Swelling of Ankles Negative: Chest Pain, Palpitations, Faintness, Syncope, Proximal NocturnalDyspnea, Orthopnoea Gastroenterology: Positive: Abdominal Pain - chronic Negative: Diarrhea, Change in Bowel Habits Genital - Urinary: Negative: Dysuria, Polyuria Musculoskeletal: Positive: Low Back Pain Endocrinology: Positive: Thyroid Problems Objective Vital Signs - 8 hr 12/19/18 12/19/18 12/19/18 16:13 17:36 17:37 Temperature 99.9 F Pulse Rate 108 81 Respiratory 20 14 8 Rate Blood Pressure 95/74 94/72 (mmHg) O2 Sat by Pulse 99 96 Oximetry 12/19/18 12/19/18 12/19/18 18:00 18:06 18:07 Temperature Pulse Rate 82 82 Respiratory 4 18 16 Rate Blood Pressure 108/75 (mmHg) O2 Sat by Pulse 98 97 Oximetry 12/19/18 12/19/18 12/19/18 18:37 19:00 19:07 Temperature Pulse Rate 83 81 80 Respiratory 12 14 8 Rate Blood Pressure 112/76 115/79 (mmHg) O2 Sat by Pulse 99 100 99 Oximetry 12/19/18 19:37 Temperature Pulse Rate 81 Respiratory 19 Rate Blood Pressure 106/79 (mmHg) O2 Sat by Pulse 98 Oximetry Oxygen Devices in Use Now: None Appearance: tired appearing, NAD, alert and interactive Ears/Nose/Mouth/Throat: Clear Oropharnyx, Mucous Membranes Moist Neck: NL Appearance and Movements; NL JVP Respiratory: - - decreased breath sounds at bases, otherwise clear Cardiovascular: NL Sounds; No Murmurs; No JVD, RRR Abdominal: NL Sounds; No Tenderness; No Distention, No Hepatosplenomegaly Extremities: - - 1+ over LE b/l Skin: No Rash or Ulcers, - - pallor Result Diagrams: 12/19/18 17:58 12/19/18 17:58 Additional Lab and Data: Lab Results 12/19/18 12/19/18 12/19/18 Range/Units 17:44 17:56 17:58 WBC 4.3 (3.5-10.8) 10^3/uL RBC 2.55 L (3.70-4.87) 10^6 /uL Hgb 8.7 L (12.0-16.0) g/dL Hct 27 L (35-47) % MCV 105 H (80-97) fL MCH 34 H (27-31) pg MCHC 32 (31-36) g/dL RDW 22 H (10-15) % Plt Count 299 (150-450) 10^3/uL MPV 8.6 (7.4-10.4) fL Neut % (Auto) 62.5 % Lymph % (Auto) 28.3 % Sampson % (Auto) 7.8 % Eos % (Auto) 0.2 % Baso % (Auto) 1.2 % Absolute Neuts (auto) 2.7 (1.5-7.7) 10^3/ul Absolute Lymphs (auto) 1.2 (1.0-4.8) 10^3/ul Absolute Monos (auto) 0.3 (0-0.8) 10^3/ul Absolute Eos (auto) 0.0 (0-0.6) 10^3/ul Absolute Basos (auto) 0.1 (0-0.2) 10^3/ul Absolute Nucleated RBC 0.0 10^3/ul Nucleated RBC % 0.0 INR (Anticoag Therapy) (0.82-1.09) Sodium (135-145) mmol/L Potassium (3.5-5.0) mmol/L Chloride (101-111) mmol/L Carbon Dioxide (22-32) mmol/L Anion Gap (2-11) mmol/L BUN (6-24) mg/dL Creatinine (0.51-0.95) mg/dL Est GFR ( Amer) (>60) Est GFR (Non-Af Amer) (>60) BUN/Creatinine Ratio (8-20) Glucose (70-100) mg/dL Lactic Acid (0.5-2.0) mmol/L Calcium (8.6-10.3) mg/dL Magnesium (1.9-2.7) mg/dL Total Bilirubin (0.2-1.0) mg/dL AST (13-39) U/L ALT (7-52) U/L Alkaline Phosphatase (34-104) U/L Troponin I 0.00 (<0.04) ng/mL C-Reactive Protein (<8.01) mg/L B-Natriuretic Peptide 25 (<=100) pg/mL Total Protein (6.4-8.9) g/dL Albumin (3.2-5.2) g/dL Globulin (2-4) g/dL Albumin/Globulin Ratio (1-3) Lipase (11.0-82.0) U/L TSH (0.34-5.60) mcIU/mL Beta HCG, Quant mIU/mL 12/19/18 12/19/18 12/19/18 Range/Units 17:58 17:58 17:58 WBC (3.5-10.8) 10^3/uL RBC (3.70-4.87) 10^6 /uL Hgb (12.0-16.0) g/dL Hct (35-47) % MCV (80-97) fL MCH (27-31) pg MCHC (31-36) g/dL RDW (10-15) % Plt Count (150-450) 10^3/uL MPV (7.4-10.4) fL Neut % (Auto) % Lymph % (Auto) % Sampson % (Auto) % Eos % (Auto) % Baso % (Auto) % Absolute Neuts (auto) (1.5-7.7) 10^3/ul Absolute Lymphs (auto) (1.0-4.8) 10^3/ul Absolute Monos (auto) (0-0.8) 10^3/ul Absolute Eos (auto) (0-0.6) 10^3/ul Absolute Basos (auto) (0-0.2) 10^3/ul Absolute Nucleated RBC 10^3/ul Nucleated RBC % INR (Anticoag Therapy) 1.38 H (0.82-1.09) Sodium 141 (135-145) mmol/L Potassium 3.1 L (3.5-5.0) mmol/L Chloride 112 H (101-111) mmol/L Carbon Dioxide 23 (22-32) mmol/L Anion Gap 6 (2-11) mmol/L BUN 11 (6-24) mg/dL Creatinine 0.64 (0.51-0.95) mg/dL Est GFR ( Amer) 123.1 (>60) Est GFR (Non-Af Amer) 101.8 (>60) BUN/Creatinine Ratio 17.2 (8-20) Glucose 88 (70-100) mg/dL Lactic Acid 1.6 (0.5-2.0) mmol/L Calcium 7.1 L (8.6-10.3) mg/dL Magnesium 1.6 L (1.9-2.7) mg/dL Total Bilirubin 0.50 (0.2-1.0) mg/dL AST 38 (13-39) U/L ALT 28 (7-52) U/L Alkaline Phosphatase 109 H (34-104) U/L Troponin I (<0.04) ng/mL C-Reactive Protein 4.94 (<8.01) mg/L B-Natriuretic Peptide (<=100) pg/mL Total Protein 4.1 L (6.4-8.9) g/dL Albumin 1.7 L (3.2-5.2) g/dL Globulin 2.4 (2-4) g/dL Albumin/Globulin Ratio 0.7 L (1-3) Lipase 15 (11.0-82.0) U/L TSH 9.54 H (0.34-5.60) mcIU/mL Beta HCG, Quant 2.15 mIU/mL 12/19/18 Range/Units 20:33 WBC (3.5-10.8) 10^3/uL RBC (3.70-4.87) 10^6 /uL Hgb (12.0-16.0) g/dL Hct (35-47) % MCV (80-97) fL MCH (27-31) pg MCHC (31-36) g/dL RDW (10-15) % Plt Count (150-450) 10^3/uL MPV (7.4-10.4) fL Neut % (Auto) % Lymph % (Auto) % Sampson % (Auto) % Eos % (Auto) % Baso % (Auto) % Absolute Neuts (auto) (1.5-7.7) 10^3/ul Absolute Lymphs (auto) (1.0-4.8) 10^3/ul Absolute Monos (auto) (0-0.8) 10^3/ul Absolute Eos (auto) (0-0.6) 10^3/ul Absolute Basos (auto) (0-0.2) 10^3/ul Absolute Nucleated RBC 10^3/ul Nucleated RBC % INR (Anticoag Therapy) (0.82-1.09) Sodium (135-145) mmol/L Potassium (3.5-5.0) mmol/L Chloride (101-111) mmol/L Carbon Dioxide (22-32) mmol/L Anion Gap (2-11) mmol/L BUN (6-24) mg/dL Creatinine (0.51-0.95) mg/dL Est GFR ( Amer) (>60) Est GFR (Non-Af Amer) (>60) BUN/Creatinine Ratio (8-20) Glucose (70-100) mg/dL Lactic Acid (0.5-2.0) mmol/L Calcium (8.6-10.3) mg/dL Magnesium (1.9-2.7) mg/dL Total Bilirubin (0.2-1.0) mg/dL AST (13-39) U/L ALT (7-52) U/L Alkaline Phosphatase (34-104) U/L Troponin I 0.00 (<0.04) ng/mL C-Reactive Protein (<8.01) mg/L B-Natriuretic Peptide (<=100) pg/mL Total Protein (6.4-8.9) g/dL Albumin (3.2-5.2) g/dL Globulin (2-4) g/dL Albumin/Globulin Ratio (1-3) Lipase (11.0-82.0) U/L TSH (0.34-5.60) mcIU/mL Beta HCG, Quant mIU/mL Assessment/Plan - Billing Plan By Medical Problem: 1. Pneumonia. This seems to have been treated adequately. I think her presenting symptom is not acute and is likely from known pleural effusion after recent infection. She may also have SOB from chronic anemia. I do not think the patient requires further antibiotics at this time. 2. Pleural effusions with LE edema. The former is likely from known recent history of PNA. Patient reports the LE edema is chronic - unclear if she is on amlodipine. She does not know if she has a TTE in the past. Would recommend continued follow up with her PCP. She can also be briefly started on furosemide given volume overload on exam. She should follow up soon with her PCP for ongoing volume status and BMP monitoring, and also a TTE. Pt was extensively educated on importance of follow up. 3. Hypothyroid. Patient will need to follow up with her PCP for further levothyroxine titration given mildly elevated TSH. If she is underdosed, this could be contributing to her presenting symptom of weakness. 4. Macrocytic anemia. This is likely from malabsorption from h/o gastric bypass with known vitamin B12 deficiency. This could also be contributing to her feelings of weakness. She can receive an injection of B12 now with high- dose oral supplementation as an outpatient. Admission Status and Rationale: To be discharged from ER. Discussed case with Khoa Barton. Patient will be referred to [facility] for home PT. She needs close f/u with her PCP for ongoing management of volume overload and micronutrient deficiencies.
[2018-12-19] MEDS ORDERED: Cyanocobalamin INJ * 1,000 MCG/ML VIAL 1 ML VIAL IM ONE (22:24)
[2018-12-19 23:06] LABS: Urine Appearance Cloudy; Urine Bilirubin Negative (Negative); Urine Blood Negative (Negative); Urine Color Amber; Urine Glucose Negative (Negative); Urine Ketones Negative (Negative); Urine Nitrite Negative (Negative); Urine Protein Negative (Negative); Urine Urobilinogen Positive (Negative)
[2018-12-20 00:41] VITALS: BP 101/70
== END 2018-12-20 00:52 | disposition home or self-care (01) ==
LOC: ED 16:09
DX: J90 Pleural effusion, not elsewhere classified (principal); R60.9 Edema, unspecified; R07.9 Chest pain, unspecified; R10.12 Left upper quadrant pain; F17.210 Nicotine dependence, cigarettes, uncomplicated; F31.9 Bipolar disorder, unspecified; F43.10 Post-traumatic stress disorder, unspecified
CPT/HCPCS: 36415; 74176; 80053; 81003; 83605; 83690; 83735; 83880; 84443; 84484; 84702; 85025; 85610; 86140; 93005; 96361; 96372; 96374; 96375; 99285; A9270-GY; J2270; J2405; J3420; J3475

== ENCOUNTER 2019-04-05 16:54 | Emergency (ER) | payer SELFPAY ==
--- NOTE | 2019-04-05 17:46 | ED ---
Psychiatric Complaint - HPI Summary HPI Summary: This pt is a 43 Y/O F presenting to [facility] with a CC of Suicidal ideations that have been present all day today. She states that she was recently released from [facility] after receiving inpatient treatment for similar symptoms. She states that she has been having increasingly aggressive auditory and visual hallucinations. She states that she has been seeing her family, including her children and her sister say that she is going to be arrested and that she should end her life instead. She states that she had intent to follow through with the ideations but had nothing at her disposal to complete the task and therefore decided to come in to [facility] instead. She denies any CP, SOB, fevers, chills, N/v, and headaches. She states no alleviating factors. She stated that the hallucinations are progressively getting worse. She has a PMHx of anemia, thyroid disease, and depression. - History Of Current Complaint Chief Complaint: EDSuicidal Time Seen by Provider: 04/05/19 17:06 Hx Obtained From: Patient Onset/Duration: Gradual Onset, Lasting Days, Still Present, Worse Since - today Timing: Constant Severity Initially: Moderate Severity Currently: Severe Character: Manic, Depressed, Fearful Aggravating Factor(s): Other - auditory and visual hallucinations Alleviating Factor(s): Nothing Associated Signs And Symptoms: Positive: Hallucinating Related History: Positive For: Prior Psychiatric Issues - depression Has Suicidal: Reports: Thoughts, With A Plan Has Homicidal: Denies: Thoughts, With A Plan - Allergies/Home Medications Allergies/Adverse Reactions: Allergies Allergy/AdvReac Type Severity Reaction Status Date / Time erythromycin base Allergy Swelling Verified 04/05/19 17:01 metoclopramide [From Reglan] Allergy Itching Verified 04/05/19 17:01 nitrofurantoin Allergy Swelling Verified 04/05/19 17:01 [From Macrobid] NSAIDS (Non-Steroidal Allergy Bleeding Verified 04/05/19 17:01 Anti-Inflamma terbutaline Allergy Unknown Verified 04/05/19 17:01 Reaction Details PMH/Surg Hx/FS Hx/Imm Hx Previously Healthy: Yes Endocrine/Hematology History: Reports: Hx Blood Transfusions, Hx Thyroid Disease - hypothyoidism, Hx Anemia Denies: Hx Anticoagulant Therapy, Hx Diabetes Cardiovascular History: Reports: Hx Cardiac Arrest - multiple times during surgery, Other Cardiovascular Problems/Disorders - 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 Denies: Hx Congestive Heart Failure, Hx Hypertension, Hx Pacemaker/ICD Respiratory History: Denies: Hx Asthma, Hx Chronic Obstructive Pulmonary Disease (COPD) GI History: Reports: Hx Gall Bladder Disease - REMOVAL, Hx Gastroesophageal Reflux Disease, Hx Irritable Bowel, Hx Obstructive Bowel, Other GI Disorders - SBOx2, incarcerated hernia, gastric bypass, jeronimo, appy, hysterectomy History: Reports: Hx Acute Renal Failure, Hx Renal Disease - ACUTE RENAL FAILURE 2018 Denies: Hx Dialysis, Other Problems/Disorders Musculoskeletal History: Reports: Hx Arthritis, Other Musculoskeletal History - carpal tunnel Sensory History: Reports: Hx Contacts or Glasses Denies: Hx Hearing Aid Opthamlomology History: Reports: Hx Contacts or Glasses Neurological History: Reports: Hx Headaches Denies: Hx Dementia, Hx Seizures, Other Neuro Impairments/Disorders Psychiatric History: Reports: Hx Depression Denies: Hx Eating Disorder, Hx Panic Disorder, Hx Substance Abuse - Surgical History Surgery Procedure, Year, and Place: APPENDIX A CHILD,GALLBLADDER 10 YRS AGO, GASTRIC BYPASS 11 YRS AGO,TUBAL 2006,PARTIAL HYSTERECTOMY 2006,2 HERNIA SURGERIES,9 INTESTINAL SURGERYS IN 2008 DONE AT [facility] DUE TO COMPLICATIONS OF GASTRIC BYPASS SURGERY. APPENDECTOMY & CHOLESECETOMY. Hx Anesthesia Reactions: No - Immunization History Date of Tetanus Vaccine: Date of Influenza Vaccine: last year Immunizations Up to Date: Yes Infectious Disease History: Yes Infectious Disease History: Reports: Hx of Known/Suspected MRSA - PER RECORDS, Hx Shingles, Hx Known/Suspected VRE Denies: Hx Hepatitis, Hx Human Immunodeficiency Virus (HIV), Traveled Outside the [place] in Last 30 Days - Family History Known Family History: Positive: Unknown - Pt denies any family history. , Other - no history of depression - Social History Alcohol Use: Rare Hx Substance Use: No Substance Use Type: Reports: None Hx Tobacco Use: Yes Smoking Status (MU): Light Every Day Tobacco Smoker Have You Smoked in the Last Year: No Review of Systems Negative: Fever, Chills Negative: Chest Pain Negative: Shortness Of Breath Negative: Vomiting, Nausea Negative: Headache Psychological: Other - NEGATIVE: HI Positive: Depressed, Other - POSITIVE: SI All Other Systems Reviewed And Are Negative: Yes Physical Exam - Summary Physical Exam Summary: Appearance: The patient is well-nourished in no acute distress and in no acute pain. Skin: The skin is warm and dry and skin color reflects adequate perfusion. HEENT: The head is normocephalic and atraumatic. The pupils are equal and reactive. The conjunctivae are clear and without drainage. Nares are patent and without drainage. Mouth reveals moist mucous membranes and the throat is without erythema and exudate. The external ears are intact. The ear canals are patent and without drainage. The tympanic membranes are intact. Neck: The neck is supple with full range of motion and non-tender. There are no carotid bruits. There is no neck vein distension. Respiratory: Chest is non-tender. Lungs are clear to auscultation and breath sounds are symmetrical and equal. Cardiovascular: Heart is regular rate and rhythm. There is no murmur or rub auscultated. There is no peripheral edema and pulses are symmetrical and equal. Abdomen: The abdomen is soft and non-tender. There are normal bowel sounds heard in all four quadrants and there is no organomegaly palpated. Musculoskeletal: There is no back tenderness noted. Extremities are non-tender with full range of motion. There is good capillary refill. There is no peripheral edema or calf tenderness elicited. Neurological: Patient is alert and oriented to person, place and time. The patient has symmetrical motor strength in all four extremities. Cranial nerves are grossly intact. Deep tendon reflexes are symmetrical and equal in all four extremities. Psychiatric: Anxious and agitated. Triage Information Reviewed: Yes Vital Signs On Initial Exam: Initial Vitals Temp Pulse Resp BP Pulse Ox 98.2 F 117 16 98/77 99 04/05/19 16:56 04/05/19 16:56 04/05/19 16:56 04/05/19 16:56 04/05/19 16:56 Vital Signs Reviewed: Yes Diagnostics - Vital Signs Vital Signs Temp Pulse Resp BP Pulse Ox 04/05/19 16:56 98.2 F 117 16 98/77 99 - Laboratory Result Diagrams: 04/05/19 18:44 04/05/19 17:55 Lab Statement: Any lab studies that have been ordered have been reviewed, and results considered in the medical decision making process. Course/Dx - Course Course Of Treatment: Ms. Callaway was medically cleared here in the emergency department and is awaiting a mental health eval in the flex unit. Her urine grossly looks to be infected and I gave her a dose of Bactrim and would expect that she would need Bactrim twice a day 5 days. - Differential Dx/Clinical Impression Provider Diagnosis: Schizophrenia, UTI (urinary tract infection) Discharge ED - Sign-Out/Discharge Documenting (check all that apply): Sign-Out Patient Signing out patient TO: Lalo Kelley Patient Received Moderate/Deep Sedation with Procedure: No - Discharge Plan Referrals: Nguyễn CHOWDARY,Zac Velazquez [Primary Care Provider] - - Attestation Statements Document Initiated by Scribe: Yes Documenting Scribe: Castro Persaud Provider For Whom Scribe is Documenting (Include Credential): Naeem Rivera MD Scribe Attestation: I, Castro Persaud, scribed for Naeem Rivera MD on 04/05/19 at 1953. Scribe Documentation Reviewed: Yes Provider Attestation: The documentation as recorded by the Castro potter accurately reflects the service I personally performed and the decisions made by me, Naeem Rivera MD Status of Scribe Document: Viewed
[2019-04-05 17:58] LABS: Urine Appearance Cloudy; Urine Bacteria 1+ (Absent); Urine Bilirubin Negative (Negative); Urine Blood Negative (Negative); Urine Color Amber; Urine Glucose Negative (Negative); Urine Ketones Negative (Negative); Urine Nitrite Positive (Negative); Urine Protein Negative (Negative); Urine Red Blood Cell 1+(3-5/hpf) (Absent); Urine Specific Gravity 1.017 (1.010-1.030); Urine Squamous Epithelial Cell Present (Absent); Urine Urobilinogen Positive (Negative); Urine White Blood Cell 2+(11-20/hpf) (Absent)
[2019-04-05 18:05] LABS: Urine Benzodiazepine Screen None Detected (None Detect); Urine Opiates Screen None Detected (None Detect)
[2019-04-05 18:39] LABS: Albumin 2.9 g/dL (3.2-5.2); CO2 Carbon Dioxide 18 mmol/L (22-32); Calcium 7.2 mg/dL (8.6-10.3); Chloride 106 mmol/L (101-111); Sodium 134 mmol/L (135-145)
[2019-04-05 18:45] LABS: ALT 42 U/L (7-52); Albumin/Globulin Ratio 1.2 (1-3); Alkaline Phosphatase 79 U/L (34-104); BUN/Creatinine Ratio 30.5 (8-20); Blood Urea Nitrogen 25 mg/dL (6-24); EGFR African American 92.5 (>60); EGFR Non-African American 76.5 (>60); Globulin 2.4 g/dL (2-4); Glucose 73 mg/dL (70-100); Total Protein 5.3 g/dL (6.4-8.9)
[2019-04-05 18:52] LABS: Acetaminophen < 15 mcg/mL; Alcohol < 10 mg/dL (<10); Salicylate < 2.50 mg/dL (<30)
[2019-04-05 18:53] LABS: ABS Lymphocytes 2.3 10^3/ul (1.0-4.8); ABS Monocytes 0.6 10^3/ul (0-0.8); ABS Neutrophils 3.1 10^3/ul (1.5-7.7); Eosinophil % 0.1 %; Hematocrit 36 % (35-47); Hemoglobin 12.1 g/dL (12.0-16.0); Lymphocyte % 38.1 %; Mean Corpuscular HGB Conc 34 g/dL (31-36); Mean Corpuscular Hemoglobin 32 pg (27-31); Mean Corpuscular Volume 97 fL (80-97); Mean Platelet Volume 8.1 fL (7.4-10.4); Nucleated Red Blood Cells % 0.1; Platelet Count 212 10^3/uL (150-450); Red Blood Count 3.73 10^6 /uL (3.70-4.87); Red Cell Distribution Width 18 % (10-15); White Blood Count 5.9 10^3/uL (3.5-10.8)
[2019-04-05 19:02] LABS: TSH (Thyroid Stimulating Horm) 6.24 mcIU/mL (0.34-5.60)
[2019-04-05] MEDS ORDERED: hydrOXYzine HCL TAB* 50 MG PO ONE (19:07)
[2019-04-05] MEDS ORDERED: Sulfamethox/Trimethoprim DS 800/160* TAB PO ONE (19:08)
[2019-04-05 19:27] LABS: AST 30 U/L (13-39); Anion Gap 10 mmol/L (2-11); Potassium 3.7 mmol/L (3.5-5.0)
--- NOTE | 2019-04-05 19:33 | ED ---
Progress - Progress Note Progress Note: Pt is a signout from Dr. Rivera to Dr. Kelley at 1900 shift change pending MHE and disposition. Course/Dx - Course Course Of Treatment: Pt is a signout from Dr. Rivera to Dr. Kelley at 1900 shift change pending MHE and disposition. - Diagnoses Provider Diagnoses: Schizophrenia, UTI (urinary tract infection) Discharge ED - Sign-Out/Discharge Documenting (check all that apply): Receiving Sign-Out Receiving patient FROM: Naeem Rivera - This pt is a signout from Dr. Rivera to Dr. Kelley at 1900 shift change. Patient Received Moderate/Deep Sedation with Procedure: No - Discharge Plan Referrals: Nguyễn CHOWDARY,Zac Velazquez [Primary Care Provider] - - Attestation Statements Document Initiated by Sylvia: Yes Documenting Scribe: Christofer Lima Provider For Whom Sylvia is Documenting (Include Credential): Dr. Lalo Kelley MD Scribe Attestation: IChristofer scribed for Dr. Lalo Kelley MD on 04/06/19 at 0554. Scribe Documentation Reviewed: Yes Provider Attestation: The documentation as recorded by the Christofer potter accurately reflects the service I personally performed and the decisions made by me, Dr. Lalo Kelley MD Status of Scribe Document: Viewed
[2019-04-05] MEDS ORDERED: QUEtiapine TAB* 100 MG PO ONE (23:30)
[2019-04-05] MEDS ORDERED: Zolpidem TAB* 10 MG PO ONE (23:31)
[2019-04-06] MEDS ORDERED: hydrOXYzine HCL TAB* 50 MG PO ONE (08:34)
--- NOTE | 2019-04-06 08:58 | ED ---
Progress - Progress Note Progress Note: Patient is received as a sign-out from Dr. Kelley to Dr. Felder at 0700 shift change pending disposition of this mental health patient. [address] [place] [address] worker Inder reports that the patient's case has been reviewed by Dr. Gauthier. Patient will be discharged to home and follow up with [facility] on outpatient basis. - Consult/PCP Time Called: 19:20 Course/Dx - Course Course Of Treatment: Patient is received as a sign-out from Dr. Kelley to Dr. Felder at 0700 04/06/19 shift change pending disposition of this mental health patient. [facility] worker Inder reports that the patient's case has been reviewed by Dr. Gauthier. Patient will be discharged to home and follow up with [facility] on outpatient basis. - Diagnoses Provider Diagnoses: UTI (urinary tract infection), Mood disorder, Substance abuse - Provider Notifications Discussed Care Of Patient With: Myke Gauthier Time Discussed With Above Provider: 10:20 Instructed by Provider To: Other - [address] [place] [address] worker Inder reports that the patient's case has been reviewed by Dr. Gauthier. Patient will be discharged to home and follow up with [facility] on outpatient basis. Discharge ED - Sign-Out/Discharge Documenting (check all that apply): Patient Departure - discharge, Receiving Sign-Out Receiving patient FROM: Lalo Kelley Patient Received Moderate/Deep Sedation with Procedure: No - Discharge Plan Condition: Stable Disposition: HOME Prescriptions: Sulfamethox/Trimethoprim DS* [Bactrim DS 800/160 TAB*] 1 tab PO BID #10 tab Patient Education Materials: Urinary Tract Infection in Women (ED), Mood Disorders (ED), Methamphetamine Abuse (ED) Referrals: Nguyễn CHOWDARY,Zac Velazquez [Primary Care Provider] - - Attestation Statements Document Initiated by Scribe: Yes Documenting Scribe: CELIA PARKER Provider For Whom Scribe is Documenting (Include Credential): KRISHNA FELDER MD Scribe Attestation: CELIA Vital, scribed for KRISHNA FELDER MD on 04/06/19 at 1046. Status of Scribe Document: Ready
[2019-04-06 12:16] VITALS: BP 88/69
[2019-04-06] MEDS ORDERED: Apixaban* 5 MG TAB PO ONE (23:35)
== END 2019-04-06 12:35 | disposition home or self-care (01) ==
LOC: ED 16:54
DX: F20.9 Schizophrenia, unspecified (principal); N39.0 Urinary tract infection, site not specified; F39 Unspecified mood [affective] disorder; F19.10 Other psychoactive substance abuse, uncomplicated; D64.9 Anemia, unspecified; E03.9 Hypothyroidism, unspecified; K21.9 Gastro-esophageal reflux disease without esophagitis; Z86.74 Personal history of sudden cardiac arrest; Z98.84 Bariatric surgery status; Z90.710 Acquired absence of both cervix and uterus; Z90.49 Acquired absence of other specified parts of digestive tract; F17.200 Nicotine dependence, unspecified, uncomplicated; Z88.1 Allergy status to other antibiotic agents; Z88.8 Allergy status to other drugs, medicaments and biological substances; Z79.899 Other long term (current) drug therapy
CPT/HCPCS: 36415; 80053; 80307; 80320; 80329; 81003; 81015; 84443; 85025; 87086; 99285; A9270-GY; G0480

== ENCOUNTER 2019-04-15 15:42 | Inpatient (IN) | payer SELFPAY ==
[2019-04-15] MEDS ORDERED: NS 0.9% 1000 ML** 1,000 ML IV ONE (17:07)
--- NOTE | 2019-04-15 17:11 | ED ---
GI/ HPI - HPI Summary HPI Summary: This pt is a 43 y/o female presenting to [facility] c/o bilateral flank pain radiating up to her back, worse on the left than right. Pt reports she has nausea and vomiting. She has had 14 episodes of emesis today so far. Additionally notes abd pain. Pt also states she fell last night and hit her left side. Pt has not taken any pain medications. She notes recent dx of UTI for which she took antibiotics and finished them about 1 week ago. Pt with hx of complications of bleeding ulcers (found in [place]) s/p gastric bypass in 2001. She is a current smoker, 2 cigarettes a day. Denies hx of kidney stones. - History of Current Complaint Chief Complaint: EDFlankPain Time Seen by Provider: 04/15/19 17:03 Stated Complaint: ABDOMINAL PAIN PER PT Hx Obtained From: Patient Onset/Duration: Started Days Ago, Still Present Timing: Lasting Days Current Severity: Severe Pain Intensity: 10 Location of Pain: Flank - bilateral Pain Radiates to: Back Associated Signs and Symptoms: Positive: Back Pain, Nausea, Vomiting, Flank Pain , Abdominal Pain. Negative: Fever Aggravating Factor(s): Nothing Alleviating Factor(s): Nothing - Allergy/Home Medications Allergies/Adverse Reactions: Allergies Allergy/AdvReac Type Severity Reaction Status Date / Time erythromycin base Allergy Swelling Verified 04/15/19 15:48 metoclopramide [From Reglan] Allergy Itching Verified 04/15/19 15:48 nitrofurantoin Allergy Swelling Verified 04/15/19 15:48 [From Macrobid] NSAIDS (Non-Steroidal Allergy Bleeding Verified 04/15/19 15:48 Anti-Inflamma terbutaline Allergy Unknown Verified 04/15/19 15:48 Reaction Details Home Medications: Home Medications Apixaban* [Eliquis*] 5 mg PO BID 04/15/19 [History Confirmed 04/15/19] Bupropion XL* [Wellbutrin XL *] 300 mg PO DAILY 04/15/19 [History Confirmed 03/26] Dicyclomine CAP* [Bentyl CAP*] 10 mg PO TID PRN 04/15/19 [History Confirmed 03/26] Docusate CAP* [Colace Cap*] 100 mg PO BID 04/15/19 [History Confirmed 04/15/19] Gabapentin CAP(*) [Neurontin 300 CAP(*)] 300 mg PO TID 04/15/19 [History Confirmed 04/15/19] Levothyroxine TAB* [Synthroid TAB*] 25 mcg PO DAILY 04/15/19 [History Confirmed 04/15/19] Lubiprostone 24 MCG CAP (NF) [Amitiza (NF)] 24 mcg PO BID 04/15/19 [History Confirmed 04/15/19] QUEtiapine TAB* [Seroquel 100 MG *] 100 mg PO BID 04/15/19 [History Confirmed ] PMH/Surg Hx/FS Hx/Imm Hx Endocrine/Hematology History: Reports: Hx Blood Transfusions, Hx Thyroid Disease - hypothyoidism, Hx Anemia Denies: Hx Anticoagulant Therapy, Hx Diabetes Cardiovascular History: Reports: Hx Cardiac Arrest - multiple times during surgery, Other Cardiovascular Problems/Disorders - 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 Denies: Hx Congestive Heart Failure, Hx Hypertension, Hx Pacemaker/ICD Respiratory History: Denies: Hx Asthma, Hx Chronic Obstructive Pulmonary Disease (COPD) GI History: Reports: Hx Gall Bladder Disease - REMOVAL, Hx Gastroesophageal Reflux Disease, Hx Irritable Bowel, Hx Obstructive Bowel, Other GI Disorders - SBOx2, incarcerated hernia, gastric bypass, jeronimo, appy, hysterectomy History: Reports: Hx Acute Renal Failure, Hx Renal Disease - ACUTE RENAL FAILURE 2017 Denies: Hx Dialysis, Hx Kidney Stones, Other Problems/Disorders Musculoskeletal History: Reports: Hx Arthritis, Other Musculoskeletal History - carpal tunnel Sensory History: Reports: Hx Contacts or Glasses Denies: Hx Hearing Aid Opthamlomology History: Reports: Hx Contacts or Glasses Neurological History: Reports: Hx Headaches Denies: Hx Dementia, Hx Seizures, Other Neuro Impairments/Disorders Psychiatric History: Reports: Hx Depression Denies: Hx Eating Disorder, Hx Panic Disorder, Hx of Violent Episodes Against Others, Hx Substance Abuse - Surgical History Surgical History: Yes Surgery Procedure, Year, and Place: APPENDIX A CHILD,GALLBLADDER 10 YRS AGO, GASTRIC BYPASS 11 YRS AGO,TUBAL 2006,PARTIAL HYSTERECTOMY 2006,2 HERNIA SURGERIES,9 INTESTINAL SURGERYS IN 2008 DONE AT [facility] DUE TO COMPLICATIONS OF GASTRIC BYPASS SURGERY. APPENDECTOMY & CHOLESECETOMY. Hx Anesthesia Reactions: No - Immunization History [facility] Date of Influenza Vaccine: last year Infectious Disease History: No Infectious Disease History: Reports: Hx of Known/Suspected MRSA - PER RECORDS, Hx Shingles, Hx Known/Suspected VRE Denies: Hx Hepatitis, Hx Human Immunodeficiency Virus (HIV), Traveled Outside the [place] in Last 30 Days - Family History Known Family History: Positive: None - Pt denies any family history. , Other - no history of depression - Social History Alcohol Use: Rare Hx Substance Use: No Substance Use Type: Reports: None Hx Tobacco Use: Yes Smoking Status (MU): Light Every Day Tobacco Smoker Have You Smoked in the Last Year: No Review of Systems Negative: Fever Positive: Abdominal Pain, Vomiting, Nausea Positive: flank pain - bilateral flank Musculoskeletal: Other - POSITIVE: back pain All Other Systems Reviewed And Are Negative: Yes Physical Exam - Summary Physical Exam Summary: VITAL SIGNS: Reviewed. GENERAL: Patient is a well-developed and nourished female who is lying comfortable in the stretcher. Patient is not in any acute respiratory distress. HEAD AND FACE: No signs of trauma. No ecchymosis, hematomas or skull depressions. No sinus tenderness. EYES: PERRLA, EOMI x 2, No injected conjunctiva, no nystagmus. EARS: Hearing grossly intact. Ear canals and tympanic membranes are within normal limits. MOUTH: Oropharynx within normal limits. NECK: Supple, trachea is midline, no adenopathy, no JVD, no carotid bruit, no c- spine tenderness, neck with full ROM. CHEST: Symmetric, no tenderness at palpation LUNGS: Clear to auscultation bilaterally. No wheezing or crackles. CVS: Regular rate and rhythm, S1 and S2 present, no murmurs or gallops appreciated. ABDOMEN: Soft, non-tender. No signs of distention. No rebound no guarding, and no masses palpated. Bowel sounds are normal. Bilateral costovertebral angle tenderness. EXTREMITIES: FROM in all major joints, no edema, no cyanosis or clubbing. NEURO: Alert and oriented x 3. No acute neurological deficits. Speech is normal and follows commands. SKIN: Dry and warm PSYCH: anxious appearing. Triage Information Reviewed: Yes Vital Signs On Initial Exam: Initial Vitals Temp Pulse Resp BP Pulse Ox 98.3 F 98 18 111/91 100 04/15/19 15:46 04/15/19 15:46 04/15/19 15:46 04/15/19 15:46 04/15/19 15:46 Vital Signs Reviewed: Yes Procedures - Sedation Patient Received Moderate/Deep Sedation with Procedure: No Diagnostics - Vital Signs Vital Signs Temp Pulse Resp BP Pulse Ox 04/15/19 15:46 98.3 F 98 18 111/91 100 - Laboratory Result Diagrams: 04/16/19 05:31 04/16/19 05:31 Lab Statement: Any lab studies that have been ordered have been reviewed, and results considered in the medical decision making process. GIGU Course/Dx - Course Assessment/Plan: Blood work without a significant abnormality except for calcium of 8.1, magnesium 1.3, AST is 83, albumin 2.7. Patient is hemodynamically stable. She did not require any pain medications. The patient is awaiting for an abdominal pelvic CT and urinalysis. The patient will be signed out to Dr. Gates to follow-up on test results and pending disposition. - Diagnoses Provider Diagnoses: Ileus Discharge ED - Sign-Out/Discharge Documenting (check all that apply): Sign-Out Patient Signing out patient TO: Katherine Gates - Discharge Plan Condition: Stable Disposition: ADMITTED TO [facility] - Billing Disposition and Condition Condition: STABLE - Attestation Statements Document Initiated by Scribe: Yes Documenting Scribe: Brittany More Provider For Whom Sylvia is Documenting (Include Credential): Eduardo Herrera MD Scribe Attestation: Brittany Vital, scribed for Eduardo Herrera MD on 04/16/19 at 0835. Scribe Documentation Reviewed: Yes Provider Attestation: The documentation as recorded by the Brittany potter accurately reflects the service I personally performed and the decisions made by md, Eduardo Herrera MD Status of Scribyanci Document: Viewed
[2019-04-15 18:42] LABS: ALT 42 U/L (7-52); AST 83 U/L (13-39); Albumin 2.7 g/dL (3.2-5.2); Albumin/Globulin Ratio 0.9 (1-3); Alkaline Phosphatase 71 U/L (34-104); Anion Gap 7 mmol/L (2-11); BUN/Creatinine Ratio 18.2 (8-20); Blood Urea Nitrogen 14 mg/dL (6-24); C Reactive Protein < 1.00 mg/L (<8.01); CO2 Carbon Dioxide 24 mmol/L (22-32); Calcium 8.1 mg/dL (8.6-10.3); Chloride 107 mmol/L (101-111); EGFR African American 99.5 (>60); EGFR Non-African American 82.2 (>60); Globulin 2.9 g/dL (2-4); Glucose 71 mg/dL (70-100); Magnesium 1.3 mg/dL (1.9-2.7); Potassium 3.8 mmol/L (3.5-5.0); Sodium 138 mmol/L (135-145); Total Protein 5.6 g/dL (6.4-8.9)
[2019-04-15 18:55] LABS: ABS Lymphocytes 1.7 10^3/ul (1.0-4.8); ABS Monocytes 0.3 10^3/ul (0-0.8); ABS Neutrophils 2.6 10^3/ul (1.5-7.7); Eosinophil % 0.2 %; Hematocrit 37 % (35-47); Hemoglobin 12.5 g/dL (12.0-16.0); Lymphocyte % 36.3 %; Mean Corpuscular HGB Conc 34 g/dL (31-36); Mean Corpuscular Hemoglobin 32 pg (27-31); Mean Corpuscular Volume 95 fL (80-97); Mean Platelet Volume 7.8 fL (7.4-10.4); Platelet Count 251 10^3/uL (150-450); Red Blood Count 3.92 10^6 /uL (3.70-4.87); Red Cell Distribution Width 17 % (10-15); White Blood Count 4.7 10^3/uL (3.5-10.8)
[2019-04-15] MEDS ORDERED: Magnesium Sulfate 2 GM IV* 2 GM/50 ML BAG IVPB ONE (18:59)
--- NOTE | 2019-04-15 19:06 | ED ---
Progress - Progress Note Progress Note: This patient was signed out from Dr. Herrera to Dr. Gates at 1900 on 04/15/19, pending disposition, awaiting Abdominal CT and UA. UA obtained. Urine protein 1 +, urine ketones are trace, Urine bilirubin is 1+, Ur Leukocyte Esterase is 3+, Urine WBS is 3+, Urine RBC is 3+, Urine bacteria is 1+, an Hyaline casts are present. Abdomen/Pelvis CT reveals, per radiologist, IMPRESSION: There are stable postoperative changes of gastric bypass surgery. There is slight increase in mild dilation of loops of proximal jejunum in the left upper quadrant, cannot exclude focal ileus versus some degree of small bowel obstruction. Pt will be admitted. Home Medications Medication Instructions Recorded Confirmed Type hydrOXYzine HCL TAB* [Atarax 25 MG 50 mg PO Q8HR PRN 07/30/17 04/15/19 History TAB*] Apixaban* [Eliquis*] 5 mg PO BID 04/15/19 04/15/19 History Bupropion XL* [Wellbutrin XL *] 300 mg PO DAILY 04/15/19 04/15/19 History Dicyclomine CAP* [Bentyl CAP*] 10 mg PO TID PRN 04/15/19 04/15/19 History Docusate CAP* [Colace Cap*] 100 mg PO BID 04/15/19 04/15/19 History Gabapentin CAP(*) [Neurontin 300 300 mg PO TID 04/15/19 04/15/19 History CAP(*)] Levothyroxine TAB* [Synthroid TAB*] 25 mcg PO DAILY 04/15/19 04/15/19 History Lubiprostone 24 MCG CAP (NF) 24 mcg PO BID 04/15/19 04/15/19 History [Amitiza (NF)] QUEtiapine TAB* [Seroquel 100 MG *] 100 mg PO BID 04/15/19 04/15/19 History - Results/Orders Results/Orders: Abdomen/Pelvis CT reveals, per radiologist, IMPRESSION: There are stable postoperative changes of gastric bypass surgery. There is slight increase in mild dilation of loops of proximal jejunum in the left upper quadrant, cannot exclude focal ileus versus some degree of small bowel obstruction. ED physician has reviewed this radiology report. Re-Evaluation - Re-Evaluation First Eval Re-Evaluation Time: 20:20 Comment: Pt was asking for pain medication, she was offered toradol but she declined, and she was given zofran. Second Eval Re-Evaluation Time: 22:05 Comment: Pt refused CAT scan and would like to be discharged. Pt was recently hospitalized with repeated episodes of syncope, and was transferred to ICU. Pt would like to leave AMA, and she was advised about the danger and benefits of leaving AMA. After beign advised she decided to stay and have a CT scan. Course/Dx - Course Course Of Treatment: This patient was signed out from Dr. Herrera to Dr. Gates at 1900 on 04/15/19, pending disposition, awaiting Abdominal CT and UA. UA obtained. Urine protein 1+, urine ketones are trace, Urine bilirubin is 1+, Ur Leukocyte Esterase is 3+, Urine WBS is 3+, Urine RBC is 3+, Urine bacteria is 1+ , an Hyaline casts are present. Abdomen/Pelvis CT reveals, per radiologist, IMPRESSION: There are stable postoperative changes of gastric bypass surgery. There is slight increase in mild dilation of loops of proximal jejunum in the left upper quadrant, cannot exclude focal ileus versus some degree of small bowel obstruction. Pt refused CAT scan and would like to be discharged. Pt was recently hospitalized with repeated episodes of syncope, and was transferred to ICU. Pt would like to leave AMA, and she was advised about the danger and benefits of leaving AMA. After beign advised she decided to stay and have a CT scan. During ED course pt received Rocephin, Toradol, Morphine, Zofran, and Lidocaine 1%, and fluids. Discussed case with Dr. Wilkerson, who accepts pt for admission. Pt will be admitted. - Diagnoses Provider Diagnoses: Ileus - Provider Notifications Discussed Care Of Patient With: Alec Wilkerson Time Discussed With Above Provider: 00:43 Instructed by Provider To: Other - Discussed case with Dr. Wilkerson, who accepts pt for admission. Discharge ED - Sign-Out/Discharge Documenting (check all that apply): Patient Departure - Admit - Discharge Plan Condition: Stable Disposition: ADMITTED TO [facility] Referrals: Nguyễn CHOWDARY,Zac Velazquez [Primary Care Provider] - - Billing Disposition and Condition Condition: STABLE Disposition: Admitted to [facility] - Attestation Statements Document Initiated by Scribe: Yes Documenting Scribe: Sanjuana Mcdowell Provider For Whom Scribe is Documenting (Include Credential): Katherine Gates MD Scribe Attestation: ISanjuana, scribed for Katherine Gates MD on 04/16/19 at 0148. Scribe Documentation Reviewed: Yes Provider Attestation: The documentation as recorded by the scribe, Sanjuana Mcdowell accurately reflects the service I personally performed and the decisions made by me, Katherine Gates MD Status of Scribe Document: Viewed
[2019-04-15] MEDS ORDERED: Iohexol 300* (CONTRAST) 10 ML SDV IV ONE (19:22)
[2019-04-15] MEDS ORDERED: Ketorolac INJ* 30 MG/ML 1 ML VIAL IV PUSH ONE (19:29)
[2019-04-15] MEDS: Ondansetron INJ* 2 MG/ML VIAL IV ONE (19:37)
[2019-04-15 20:42] LABS: Urine Appearance Cloudy; Urine Bacteria 1+ (Absent); Urine Bilirubin 1+ (Negative); Urine Blood Negative (Negative); Urine Color Amber; Urine Glucose Negative (Negative); Urine Ketones Trace (Negative); Urine Nitrite Negative (Negative); Urine Protein 1+(30 mg/dL) (Negative); Urine Red Blood Cell 3+(>10/hpf) (Absent); Urine Specific Gravity 1.036 (1.010-1.030); Urine Squamous Epithelial Cell Present (Absent); Urine Urobilinogen Negative (Negative); Urine White Blood Cell 3+(>20/hpf) (Absent)
[2019-04-15] MEDS ORDERED: Ketorolac INJ* 30 MG/ML 1 ML VIAL IM ONE (22:07)
[2019-04-15] MEDS ORDERED: Lidocaine 1% MPF ** 5 ML VIAL ONE (23:55)
[2019-04-15] MEDS ORDERED: cefTRIAXone VIAL(*) 1,000 MG VIAL ONE (23:56)
[2019-04-15] MEDS: cefTRIAXone(*) 2 GM in NS 0.9% 100 ML* 100 ML IVPB ONE (23:57)
[2019-04-15] MEDS ORDERED: Lidocaine 1% MPF ** 5 ML VIAL IM ONE (23:58)
[2019-04-15] MEDS ORDERED: cefTRIAXone VIAL(*) 1,000 MG VIAL IM ONE (23:58)
[2019-04-16] MEDS ORDERED: Morphine 4 MG/ML VIAL (1 ml) 4 MG/ML VIAL IV ONE (00:40)
[2019-04-16] MEDS ORDERED: Ondansetron INJ* 2 MG/ML VIAL IV ONE (00:47)
[2019-04-16] MEDS ORDERED: Ondansetron INJ* 2 MG/ML VIAL ONE (00:48)
[2019-04-16] MEDS: Ondansetron INJ* 2 MG/ML VIAL IV ONE (00:50)
[2019-04-16] MEDS: cefTRIAXone(*) 2 GM in NS 0.9% 100 ML* 100 ML IVPB ONE (00:59)
[2019-04-16] MEDS ORDERED: Benzocaine/Butamben/Tetracain (CETACAINE - SINGLE USE) 5 gm TOPICAL ONE (02:00)
[2019-04-16] MEDS ORDERED: hydrOXYzine HCL TAB* 10 MG PO PRN (03:00)
[2019-04-16] MEDS ORDERED: Dicyclomine CAP* 10 MG PO PRN (04:20)
[2019-04-16] MEDS ORDERED: Morphine 4 MG/ML VIAL (1 ml) 4 MG/ML VIAL IV PRN (04:28)
[2019-04-16 05:38] LABS: ABS Lymphocytes 1.5 10^3/ul (1.0-4.8); ABS Monocytes 0.4 10^3/ul (0-0.8); ABS Neutrophils 2.8 10^3/ul (1.5-7.7); Eosinophil % 0.4 %; Hematocrit 31 % (35-47); Hemoglobin 10.2 g/dL (12.0-16.0); Lymphocyte % 31.2 %; Mean Corpuscular HGB Conc 33 g/dL (31-36); Mean Corpuscular Hemoglobin 32 pg (27-31); Mean Corpuscular Volume 96 fL (80-97); Mean Platelet Volume 7.4 fL (7.4-10.4); Nucleated Red Blood Cells % 0.1; Platelet Count 268 10^3/uL (150-450); Red Blood Count 3.21 10^6 /uL (3.70-4.87); Red Cell Distribution Width 18 % (10-15); White Blood Count 4.7 10^3/uL (3.5-10.8)
[2019-04-16] MEDS: Levothyroxine TAB* 25 MCG TAB PO SCH (06:01)
[2019-04-16 06:24] LABS: BUN/Creatinine Ratio 16.9 (8-20); Blood Urea Nitrogen 12 mg/dL (6-24); CO2 Carbon Dioxide 20 mmol/L (22-32); Calcium 7.3 mg/dL (8.6-10.3); EGFR African American 109.2 (>60); EGFR Non-African American 90.3 (>60); Glucose 54 mg/dL (70-100); Potassium 3.6 mmol/L (3.5-5.0); Sodium 139 mmol/L (135-145)
--- NOTE | 2019-04-16 06:28 | HP ---
CC: Dr. Zac Adrian * ADMISSION HISTORY AND PHYSICAL: DATE OF ADMISSION: 04/16/19 PRIMARY CARE PHYSICIAN: Dr. Zac Adrian. CHIEF COMPLAINT: Intractable vomiting, back pain, and abdominal pain. HISTORY OF PRESENT ILLNESS: This is a 43-year-old female with past medical history of bipolar disorder; PTSD; Maulik's thyroiditis, now with hypothyroidism; a recent history of GI bleed, status post transfusion about a week and a half ago at [facility], came to the ER due to intractable vomiting. The patient states that she initially started having back pain, which started in bilateral flank area radiating up to her back and worse on left than her right, accompanied by nausea and vomiting. She had total 14 episodes of emesis today and she states that her pain also radiated up where she had the gastric pouch in the left upper quadrant area. She has also lost quite a bit of weight and was concerned and decided to come to the ER for further evaluation. The patient denies any chest pain or any shortness of breath or palpitations. She also states that she feels very anxious. She does have a history of anxiety and bipolar disorder and was requesting something to calm her down. The patient also stated that she has had 4 loose bowel movements a day. PAST MEDICAL HISTORY: As mentioned: 1. Bipolar. 2. PTSD. 3. Anxiety. 4. Recent history of ulcer related GI bleed, status post a unit of transfusion a week and a half ago at [facility]. 5. History of right lower extremity DVT, on Eliquis. 6. 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 PAST SURGICAL HISTORY: Include: 1. Gastric bypass surgery. 2. Appendectomy. 3. Hysterectomy. 4. Tubal ligation. 5. Cholecystectomy. 6. Hernia repairs. 7. SMA repair. 8. Multiple small bowel obstructions with lysis of adhesions. HOME MEDICATIONS: The patient is on: 1. Amitiza 24 mcg p.o. b.i.d. 2. Eliquis 5 mg p.o. b.i.d. 3. Seroquel 100 mg p.o. b.i.d. 4. Bentyl 10 mg p.o. t.i.d. p.r.n. 5. Wellbutrin 300 mg oral daily. 6. Neurontin 300 mg p.o. t.i.d. 7. Colace 100 mg p.o. b.i.d. 8. Hydroxyzine 50 mg q.8 hours p.r.n. 9. Levothyroxine 25 mcg oral daily. ALLERGIES: The patient is allergic to ERYTHROMYCIN, MACROBID which causes swelling, REGLAN, which causes itching, NSAIDS cause bleeding, and TERBUTALINE causes unknown reaction. FAMILY HISTORY: Mother has tachycardia. Father has history of diabetes. SOCIAL HISTORY: She currently lives with her sister. She is visiting her father in town. Had a history of smoking a pack a day for 3 years followed by 15 years of smoking half a pack per day and for the last 3 months she has cut down to 2 cigarettes a day. She previously had a history of alcohol abuse and used to smoke marijuana, but ever since her kids are taken away by child protective services, she has been clean. She denied ever using any drugs other than some prescription opiates that she was prescribed for her pain. No methamphetamine even after I confronted that one of her urine drug screens in the past was positive. She stated that she never used any methamphetamines, cocaine, or heroin. REVIEW OF SYSTEMS: A 14-point review of systems did not reveal any new information other than what is mentioned in the HPI. PHYSICAL EXAMINATION GENERAL: The patient is awake, alert, and oriented x3, does not appear to be in any acute respiratory distress. VITAL SIGNS: BP was noted to be 121/86, heart rate 75, respiration rate 16, saturating 99% on room air, temperature was 98 degrees Fahrenheit. HEAD AND NECK: Atraumatic, normocephalic. Bilateral pupils are reactive. Oral mucosa was moist. Neck: Supple. No jugular venous distention. LUNGS: Clear to auscultation bilaterally. No wheezing, rhonchi, or rales. HEART: S1, S2. Regular rate and rhythm. ABDOMEN: Soft with multiple surgical scars. Bowel sounds were normoactive. EXTREMITIES: No cyanosis, clubbing, or edema. DIAGNOSTIC STUDIES/LAB DATA: CBC was unremarkable. Basic metabolic panel was normal. Calcium level was noted to be low at 8.1, but when corrected for low albumin, it is normal. Magnesium was noted to be low at 3. AST, ALT ratio suggestive of an alcoholic. Urinalysis shows trace ketones, positive urobilinogen, and positive leuk esterase. A CT abdomen and pelvis shows stable postoperative changes of gastric bypass surgery, there is slight increase in mild dilation of loops of proximal jejunum in the left upper quadrant, cannot exclude focal ileus versus some degree of small bowel obstruction. IMPRESSION: This is a 43-year-old female with history of gastric bypass surgery and multiple psych histories including bipolar, posttraumatic stress disorder, hypothyroidism, here due to intractable vomiting secondary to ileus versus small bowel obstruction. ASSESSMENT: 1. Intractable vomiting secondary to ileus versus small bowel obstruction. Given her history of gastric bypass surgery, an NG tube would inadvisable. We will keep the patient n.p.o. and continue with antiemetics and consult Surgery in the morning to see if she worsens, she might benefit from lysis of adhesion, but otherwise her abdomen is benign. 2. Urinary tract infection with positive leuk esterase. Previous culture was negative. We will continue the patient on ceftriaxone that was started in the ER. 3. History of posttraumatic stress disorder and bipolar disorder and anxiety. Restart home medications. 4. History of gastrointestinal bleeding. Start the patient on Protonix. 5. History of hypothyroidism. Restart hypothyroid medications. 6. History of gastric bypass. We will check on her iron panel along with B12 panel. 7. History of deep vein thrombosis. Restart her Eliquis. 8. Code status: Full code. [id number]/CPS #: [id number] [facility]
[2019-04-16 06:42] LABS: Anion Gap 7 mmol/L (2-11); Chloride 112 mmol/L (101-111)
[2019-04-16 07:09] LABS: % Iron Saturation 53 % (15-55); Iron 69 ug/dL (50-212); Total Iron Binding Capacity 130 mcg/dL (250-450); Transferrin 93 mg/dL (203-362)
[2019-04-16] MEDS: Ondansetron INJ* 2 MG/ML VIAL IV PRN (08:46)
[2019-04-16] MEDS: Morphine INJ* 4 MG/ML 1 ML SYRINGE (NEW SYRINGE VERSION) IV PRN ×4 (08:46→21:35)
[2019-04-16] MEDS ORDERED: Apixaban* 5 MG TAB PO SCH (09:00)
[2019-04-16] MEDS ORDERED: Lubiprostone 24 MCG CAP (NF) PO SCH (09:00)
[2019-04-16] MEDS ORDERED: Lorazepam PYXIS KEY PRN (10:26)
[2019-04-16] MEDS ORDERED: LORazepam INJ* 2 MG/ML 1 ML VIAL IV PUSH PRN (10:26)
[2019-04-16] MEDS: BuPROPion XL* 150 MG TAB.XL PO SCH (11:50)
[2019-04-16] MEDS: Docusate CAP* 100 MG PO SCH ×2 (11:51→20:12)
[2019-04-16] MEDS: Gabapentin CAP(*) 300 MG PO SCH ×3 (11:51→20:11)
[2019-04-16] MEDS: QUEtiapine TAB* 100 MG PO SCH ×2 (11:51→20:12)
[2019-04-16] MEDS: Pantoprazole TAB * 40 MG TAB PO SCH (11:51)
[2019-04-16 12:11] LABS: Urine Benzodiazepine Screen None Detected (None Detect); Urine Opiates Screen Presumptive Positive (None Detect)
[2019-04-16] MEDS: D5W 1/2 NS 1000 ML BAG* 1,000 ML IV SCH ×2 (14:10→23:18)
[2019-04-16] MEDS: LORazepam INJ* 2 MG/ML 1 ML VIAL IV PUSH PRN ×2 (14:32→22:38)
--- NOTE | 2019-04-16 16:09 | PN ---
Subjective Date of Service: 04/16/19 Interval History: Ms. Callaway is not feeling much better today. She continues to have 8/10 abdominal pain. Morphine is helping, but she would like the dose increased. She would also like more Ativan. The surgeon that did her gastric bypass is at [facility] , but she does not want to go back to [facility] as she does not feel as though they are addressing her problems. She reports having a panic attack this morning. Denies CP, SOB, N/V. Would like clear liquids. Nursing reports patient is frequently asking for morphine, Ativan, and Ambien. Family History: Unchanged from Admission Social History: Unchanged from Admission Past Medical History: Unchanged from Admission Objective Active Medications: Apixaban (Eliquis*) 5 mg PO BID MAKAYLA Bupropion HCl (Wellbutrin Xl *) 300 mg PO DAILY MAKAYLA Docusate Sodium (Colace Cap*) 100 mg PO BID MAKAYLA Gabapentin (Neurontin Cap(*)) 300 mg PO TID MAKAYLA Hydroxyzine HCl (Atarax Tab*) 50 mg PO Q8HR PRN ANXIETY Ceftriaxone Sodium 1 gm/ (Sodium Chloride) 50 mls @ 100 mls/hr IVPB Q24H MAKAYLA Dextrose/Sodium Chloride (D5w 1/2 Ns 1000 Ml Bag*) 1,000 mls @ 100 mls/hr IV PER RATE MAKAYLA Levothyroxine Sodium (Synthroid Tab*) 25 mcg PO DAILY@0600 MAKAYLA Lorazepam (Ativan Inj*) 1 mg IV PUSH Q8H PRN ANXIETY Morphine Sulfate (Morphine Inj (Syringe)*) 4 mg IV Q4H PRN PAIN - SEVERE Ondansetron HCl (Zofran Inj*) 4 mg IV Q4H PRN NAUSEA/VOMITING Pantoprazole Sodium (Protonix Tab*) 40 mg PO DAILY MAKAYLA Quetiapine Fumarate (Seroquel Tab*) 100 mg PO BID MAKAYLA Vital Signs - 8 hr 04/16/19 04/16/19 04/16/19 08:46 10:36 11:15 Temperature 98.3 F Pulse Rate 79 Respiratory 18 22 16 Rate Blood Pressure 103/72 (mmHg) O2 Sat by Pulse 98 Oximetry 04/16/19 04/16/19 14:32 14:55 Temperature 98.3 F Pulse Rate 87 Respiratory 20 20 Rate Blood Pressure 100/77 (mmHg) O2 Sat by Pulse 100 Oximetry Oxygen Devices in Use Now: None Appearance: Middle-aged female lying in bed in NAD Ears/Nose/Mouth/Throat: Mucous Membranes Moist Neck: NL Appearance and Movements; NL JVP, Trachea Midline Respiratory: Symmetrical Chest Expansion and Respiratory Effort, Clear to Auscultation Cardiovascular: NL Sounds; No Murmurs; No JVD, RRR Abdominal: - - Normoactive BS, tender throughout, worst in LLQ Extremities: No Edema Neurological: Alert and Oriented x 3 Lines/Tubes/Other Access: Clean, Dry and Intact Peripheral IV - Nutrition: Malnutrition Diagnosis/Plan Malnutrition Assessment by Registered Dietitian: Malnutrition Assessment Clinical Characteristics Chronic,Severe Malnutrition Assessment: Muscle Wasting - Clavicular muscles (severe) Criteria Inadequate Oral Intake - 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 GI Related - Recommend continuing antiemetics PRN; will monitor GI s/sx for impact on ability to advance diet. Glycemic Control - Will continue to monitor BG/ FS given recent hypoglycemia w/ NPO status. Texture Modification - Will monitor tolerance to regular textures and make recommendations as indicated. Malnutrition Assessment: Goals 1) Recommend advancing diet as able 2) Pt will tolerate least restrictive dietary textures w/o difficulty chewing w/ poor dentition 3) Adequate po intake to replete lean body mass and support hydration status 4) Improve fluid/electrolyte balance w/ adequate po intake and repletion PRN 5) Improve glycemic control w/ adequate po intake and repletion w/o s/sx hypoglycemia 6) Maintain bowel regularity w/ adequate po intake w/o development of diarrhea/constipation Result Diagrams: 04/17/19 05:45 04/17/19 05:45 Assess/Plan/Problems-Billing Assessment: Ms. Callaway is a 43 yo F with PMH of bipolar, PTSD, anxiety, DVT, recent GI bleed, s/p gastric bypass, now with multiple SBO recently; who presented to the ED with c/o vomiting and abdominal pain and was found to have SBO vs ileus on CT scan. - Patient Problems (1) Abdominal pain Code(s): R10.9 - UNSPECIFIED ABDOMINAL PAIN Comment: - Worst in LLQ - Multiple SBO in the recent past, all treated at [facility]; awaiting records - CT shows acute findings of SBO vs ileus - Appreciate Surgery consult - Continue IVF, Zofran, morphine (2) UTI (urinary tract infection) Comment: - Urine culture pending - Continue ceftriaxone (3) Bipolar disorder Code(s): F31.9 - BIPOLAR DISORDER, UNSPECIFIED Comment: - Continue lorazepam, bupropion, Seroquel, hydroxyzine (4) History of DVT (deep vein thrombosis) Code(s): Z86.718 - PERSONAL HISTORY OF OTHER VENOUS THROMBOSIS AND EMBOLISM Comment: - Holding Eliquis per Surgery (5) Hypothyroidism Code(s): E03.9 - HYPOTHYROIDISM, UNSPECIFIED Comment: - Continue levothyroxine (6) DVT prophylaxis Code(s): Z29.9 - ENCOUNTER FOR PROPHYLACTIC MEASURES, UNSPECIFIED Comment: - SCDs (7) Full code status Code(s): Z78.9 - OTHER SPECIFIED HEALTH STATUS Comment: Status and Disposition: Inpatient. Anticipate d/c home when medically stable. Attending: Rosanne Duenas
[2019-04-16] MEDS: hydrOXYzine HCL TAB* 50 MG PO PRN (17:27)
--- NOTE | 2019-04-16 17:56 | PN ---
Progress Note - Progress Note Date of Service: 04/16/19 Note: Surgery Progress Note Please see dictated consultation note. But briefly, patient is a 43 yo F with a history of bipolar disorder and R-Y gastric bypass (17 years ago at [place] [facility]) who presented to the ED yesterday evening with complaints of abdominal pain, nausea and emesis. She had been having diarrhea. She underwent a CT abdomen pelvis without PO contrast which showed a dilated segment of small bowel. She was also found to have a UTI and was admitted to the medical service. Per medical records she was admitted to [facility] a week and a half ago for a bleeding ulcer and transfusion. Today the patient is distracted and has difficulty answering questions coherently. She says that for the past 2 months she has had rapid weight loss, 50-60 lbs, and has had abdominal pain on and off. She says that her surgery at [place] [facility] was with Dr. Waddell but she has had many complications with the surgery. She says that she has had multiple abdominal surgeries for bowel obstructions but cannot describe how many or when. She says her current pain is in her pelvis and radiates to her upper abdomen and back. On physical exam she is well appearing but restless and has pressured speech. On abdominal exam her abdomen is flat, non distended, tender diffusely but no guarding. She has been afebrile, VSS. She has a normal WBC and stable Hct at 32. I have reviewed her CT abdomen pelvis. It appears that her gastric remnant and bili-pancreatic limb is dilated. I have reviewed the CT scan with Dr. Zambrano and also discussed the case with Dr. Stanley. We recommend obtaining an UGI tomorrow for further elucidation of her anatomy. The patient should remain NPO. Her Eliquis has been held and recommend holding it until after her UGI tomorrow.
[2019-04-16] MEDS ORDERED: cefTRIAXone(*) 1 GM in NS 0.9% 50 ML* 50 ML IVPB SCH (18:00)
--- NOTE | 2019-04-16 19:24 | CONS ---
CONSULTATION REPORT: DATE OF CONSULT: 04/16/19 ATTENDING PHYSICIAN: Dr. Cira Ca. REASON FOR THE CONSULT: Rule out small-bowel obstruction. HISTORY OF PRESENT ILLNESS: The patient is a 43-year-old female; very poor historian; with past medical history significant for bipolar disorder, PTSD, Maulik thyroiditis, report of recent history of a GI bleed and a week and a half ago at [facility] [place], also of a UTI recently treated; urine cultures done here show no growth. The patient has a medical history of a gastric bypass 17 years ago. Surgery has been consulted due to CT findings that were concerning for ileus versus small-bowel obstruction. The patient does report she had multiple bowel movements yesterday; none today, multiple episodes of vomiting yesterday and this morning complaining of primarily the vomiting. much of the history is gotten from the medical chart PAST MEDICAL HISTORY: Significant for bipolar disorder, PTSD, anxiety disorder , Maulik thyroiditis, GI bleed, GERD, right lower extremity DVT with Eliquis , also reports prior SBOs. PAST SURGICAL HISTORY: Gastric bypass 17 years ago, appendectomy, hysterectomy , tubal ligation, cholecystectomy, hernia repair, multiple small-bowel obstructions with lysis of adhesions, and possible SMA repair. MEDICATIONS: Home medications per the chart: 1. Amitiza. 2. Eliquis. 3. Seroquel. 4. Bentyl. 5. Wellbutrin. 6. Neurontin. 7. Colace. 8. Hydroxyzine. 9. Levothyroxine. These were taken from the chart. Again, the patient is a poor historian. ALLERGIES: Reported to be AZITHROMYCIN, MACROBID, REGLAN, and TERBUTALINE. FAMILY HISTORY: Noncontributory. SOCIAL HISTORY: The patient reportedly lives with her sister and her father lives in town where she was visiting per our talk today. Former smoker; she now smokes infrequently. REVIEW OF SYSTEMS: As per HPI. PHYSICAL EXAMINATION: General: The patient is lying in bed, agitated, but in no acute distress. Vital Signs: Temp 98.3, pulse 87, respirations 20, BP 100/77. On directed physical exam of the abdomen, the patient has positive bowel sounds. The abdomen is flat, soft, mildly tender throughout, well-healed scars. No guarding. No rebound tenderness. DIAGNOSTIC STUDIES/LAB DATA: CBC was grossly normal, white count 4.7, hemoglobin 10, hematocrit 31, platelets 268. Chemistries: Sodium 139, potassium 3.6, chloride 112, carbon dioxide 20, BUN of 12, creatinine 0.71, glucose was 54. These are labs from 4 o'clock this morning. Reports the patient was placed on D5 half after that glucose reading. Diagnostic Studies: CT scan of the abdomen and pelvis showed postoperative changes consistent with her gastric bypass. There are some mild dilation of loops in the proximal jejunum. The finding was could not exclude a focal ileus versus some degree of a small-bowel obstruction. ASSESSMENT: A 43-year-old female with the above history, gastric bypass surgery , multiple psychiatric diagnoses here due to intractable vomiting secondary to small- bowel obstruction versus ileus. PLAN: 1. The patient currently comfortable in bed. 2. Continue on an n.p.o. basis. 3. CT scan will be reviewed with the radiologist. 4. Further treatment based on the result of review of CT scan with the radiologist. Continue to hold her Eliquis until a treatment determination is made. The patient was also seen and examined by Dr. Ca and Linda Casanova, nurse practitioner. KATHLEEN BATRES [id number]/[facility] #: [id number] MTDNadege
[2019-04-16] MEDS ORDERED: diPHENhydraMINE PO* 25 MG PO ONE (21:00)
[2019-04-17] MEDS: Levothyroxine TAB* 25 MCG TAB PO SCH (05:45)
[2019-04-17 05:56] LABS: ABS Lymphocytes 1.2 10^3/ul (1.0-4.8); ABS Monocytes 0.3 10^3/ul (0-0.8); ABS Neutrophils 1.1 10^3/ul (1.5-7.7); Eosinophil % 0.9 %; Hematocrit 24 % (35-47); Hemoglobin 8.1 g/dL (12.0-16.0); Lymphocyte % 46.5 %; Mean Corpuscular HGB Conc 34 g/dL (31-36); Mean Corpuscular Hemoglobin 32 pg (27-31); Mean Corpuscular Volume 96 fL (80-97); Mean Platelet Volume 7.5 fL (7.4-10.4); Nucleated Red Blood Cells % 0.1; Platelet Count 201 10^3/uL (150-450); Red Blood Count 2.52 10^6 /uL (3.70-4.87); Red Cell Distribution Width 18 % (10-15); White Blood Count 2.6 10^3/uL (3.5-10.8)
[2019-04-17 06:15] LABS: BUN/Creatinine Ratio 12.3 (8-20); Calcium 7.1 mg/dL (8.6-10.3); EGFR African American 120.9 (>60)
[2019-04-17] MEDS: KCL 20 MEQ/100 ML IVPREMIX* 20 MEQ/100 ML BAG IV SCH ×3 (07:32→13:58)
[2019-04-17] MEDS: BuPROPion XL* 150 MG TAB.XL PO SCH (07:39)
[2019-04-17] MEDS: Docusate CAP* 100 MG PO SCH ×2 (07:39→20:07)
[2019-04-17] MEDS: Gabapentin CAP(*) 300 MG PO SCH ×3 (07:40→20:07)
[2019-04-17] MEDS: Pantoprazole TAB * 40 MG TAB PO SCH (07:41)
[2019-04-17] MEDS: QUEtiapine TAB* 100 MG PO SCH ×2 (07:41→20:07)
[2019-04-17] MEDS: Morphine INJ* 4 MG/ML 1 ML SYRINGE (NEW SYRINGE VERSION) IV PRN (08:15)
[2019-04-17] MEDS: Ondansetron INJ* 2 MG/ML VIAL IV PRN ×3 (08:17→20:09)
[2019-04-17] MEDS: LORazepam INJ* 2 MG/ML 1 ML VIAL IV PUSH PRN ×2 (08:17→17:37)
[2019-04-17] MEDS ORDERED: Morphine INJ* 4 MG/ML 1 ML SYRINGE (NEW SYRINGE VERSION) IV PRN (12:15)
[2019-04-17] MEDS: Apixaban* 5 MG TAB PO SCH ×2 (13:58→20:08)
[2019-04-17] MEDS: Morphine INJ* 2 MG/ML 1 ML SYRINGE (TWO MG - NEW SYRINGE VERSION) IV PRN (13:58)
[2019-04-17] MEDS: D5W 1/2 NS 1000 ML BAG* 1,000 ML IV SCH (14:04)
--- NOTE | 2019-04-17 14:42 | PN ---
Progress Note - Progress Note Date of Service: 04/17/19 Note: Surgery Progress: S: Patient seen earlier today by Dr. Stanley. She apparently had a portion of her lunch tray (regular diet) and is now complaining of abdominal pain and some vomiting (there is undigested food/emesis in her wash basin). She intermittently grimaces, then has periods where she closes her eyes and appears pain-free. She responds to direct questions, but only partial answers, and not consistently. She states she has not been passing flatus or had a BM today, but was passing flatus freely yesterday. O: Vital Signs - 8 hr 04/17/19 04/17/19 04/17/19 08:15 08:17 11:00 Temperature 97.4 F Pulse Rate 65 Respiratory 16 16 16 Rate Blood Pressure 88/54 (mmHg) O2 Sat by Pulse 100 Oximetry 04/17/19 04/17/19 11:11 13:58 Temperature Pulse Rate Respiratory 16 16 Rate Blood Pressure (mmHg) O2 Sat by Pulse Oximetry Intake and Output Last 24 Hours 04/15/19 04/16/19 04/17/19 04/18/19 06:59 06:59 06:59 06:59 Intake Total 1150 1762 480 Balance 1150 1762 480 Weight 120 lb 120 lb Intake: IV Fluids 1150 1762 D5 1/2 NS 1707 NS 55 Oral 0 0 480 Other: Estimated Void Medium Large Date of Last Bowel [id number] Movement # Bowel Movements 0 # Voids 1 1 1 Gen: appears intermittently in painful distress, but not consistently Heart: reg Lungs: clear ant Abd: does not appear distended; BS+ (fairly normal in quality); soft; relatively nontender in lower abd; moderate tenderness across entire upper abdomen; no guarding or rebound. UGI: INDICATION: Abdominal pain, small bowel obstruction. COMPARISON: Correlation is made with a prior CT of the abdomen from April. Technique: A double contrast upper GI series examination was performed. Approximately 1.8 minutes of intermittent fluoroscopic guidance were used during the exam. Findings: The esophageal peristalsis appeared normal. The patient is status post Marizol-en-Y gastric bypass surgery. The gastrojejunostomy appears widely patent. The Marizol limb appears patent although appeared dilated on the prior CT study. There is prominent gastroesophageal reflux noted throughout the study. IMPRESSION: 1. STATUS POST MARIZOL-EN-Y GASTRIC BYPASS SURGERY. NO EVIDENCE FOR OBSTRUCTION OF THE MARIZOL LIMB OR PROXIMAL SMALL BOWEL. 2. PROMINENT GASTROESOPHAGEAL REFLUX. A: persistent vomiting, despite lack of obstruction on UGI this a.m.; weight loss 2/2 malnutrition (in part r/t prior gastric bypass) P: cont med mgmt; no surgical intervention req'd at the present; Dr. Stanley to see tomorrow and advise further rec's, including poss GI consult.
--- NOTE | 2019-04-17 15:02 | PN ---
Subjective Date of Service: 04/17/19 Interval History: Ms. Callaway is very tired today on my exam and not willing to wake to speak with me. She will nod or shake her head to some questions. She does report abdominal pain, but unable to rate it. Denies N/V. No concerns from nursing. Family History: Unchanged from Admission Social History: Unchanged from Admission Past Medical History: Unchanged from Admission Objective Active Medications: Apixaban (Eliquis*) 5 mg PO BID MAK[facility]LA Bupropion HCl (Wellbutrin Xl *) 300 mg PO DAILY MAK[facility] Docusate Sodium (Colace Cap*) 100 mg PO BID MAKAYLA Gabapentin (Neurontin Cap(*)) 300 mg PO TID MAKAYLA Heparin Sodium (Porcine) (Heparin Flush Picc/Ml/Cvc(*)) 1 ml FLUSH 0600,1800 MAKAYLA; Protocol Hydroxyzine HCl (Atarax Tab*) 50 mg PO Q8HR PRN ANXIETY Ceftriaxone Sodium 1 gm/ (Sodium Chloride) 50 mls @ 100 mls/hr IVPB Q24H MAKAYLA Dextrose/Sodium Chloride (D5w 1/2 Ns 1000 Ml Bag*) 1,000 mls @ 100 mls/hr IV PER RATE MAKAYLA Potassium Chloride (Potassium Chloride 20 Meq/100 Ml Ivpremix*) 20 meq in 100 mls @ 50 mls/hr IV Q2H MAKAYLA Levothyroxine Sodium (Synthroid Tab*) 25 mcg PO DAILY@0600 MAK[facility]LA Lorazepam (Ativan Inj*) 0.5 mg IV PUSH Q8H PRN ANXIETY Morphine Sulfate (Morphine Inj (Syringe))*) 1 mg IV Q6H PRN PAIN - SEVERE Ondansetron HCl (Zofran Inj*) 4 mg IV Q4H PRN NAUSEA/VOMITING Pantoprazole Sodium (Protonix Tab*) 40 mg PO DAILY MAKAYLA Quetiapine Fumarate (Seroquel Tab*) 100 mg PO BID COUNT INCLUDES THE [facility] Vital Signs - 8 hr 04/17/19 04/17/19 04/17/19 07:00 07:40 08:00 Temperature 97.8 F Pulse Rate 69 Respiratory 18 16 16 Rate Blood Pressure 101/58 (mmHg) O2 Sat by Pulse 100 Oximetry 04/17/19 04/17/19 04/17/19 08:15 08:17 11:00 Temperature 97.4 F Pulse Rate 65 Respiratory 16 16 16 Rate Blood Pressure 88/54 (mmHg) O2 Sat by Pulse 100 Oximetry Oxygen Devices in Use Now: None Appearance: Middle-aged female lying in bed in NAD Ears/Nose/Mouth/Throat: Mucous Membranes Moist Neck: NL Appearance and Movements; NL JVP, Trachea Midline Respiratory: Symmetrical Chest Expansion and Respiratory Effort, Clear to Auscultation Cardiovascular: NL Sounds; No Murmurs; No JVD, RRR Abdominal: - - Soft, tender throughout, hypoactive BS Extremities: No Edema Neurological: - - Sedated but arousable Lines/Tubes/Other Access: Clean, Dry and Intact Peripheral IV - Nutrition: Malnutrition Diagnosis/Plan Malnutrition Assessment by Registered Dietitian: Malnutrition Assessment Clinical Characteristics Chronic,Severe Malnutrition Assessment: Muscle Wasting - Clavicular muscles (severe) Criteria Inadequate Oral Intake - 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 GI Related - Recommend continuing antiemetics PRN; will monitor GI s/sx for impact on ability to advance diet. Glycemic Control - Will continue to monitor BG/ FS given recent hypoglycemia w/ NPO status. Texture Modification - Will monitor tolerance to regular textures and make recommendations as indicated. Malnutrition Assessment: Goals 1) Recommend advancing diet as able 2) Pt will tolerate least restrictive dietary textures w/o difficulty chewing w/ poor dentition 3) Adequate po intake to replete lean body mass and support hydration status 4) Improve fluid/electrolyte balance w/ adequate po intake and repletion PRN 5) Improve glycemic control w/ adequate po intake and repletion w/o s/sx hypoglycemia 6) Maintain bowel regularity w/ adequate po intake w/o development of diarrhea/constipation Result Diagrams: 04/17/19 05:45 04/17/19 05:45 Assess/Plan/Problems-Billing Assessment: Ms. Callaway is a 43 yo F with PMH of bipolar, PTSD, anxiety, DVT, recent GI bleed, s/p gastric bypass, now with multiple SBO recently; who presented to the ED with c/o vomiting and abdominal pain and was found to have SBO vs ileus on CT scan. - Patient Problems (1) Abdominal pain Code(s): R10.9 - UNSPECIFIED ABDOMINAL PAIN Comment: - Worst in LLQ - Multiple SBO in the recent past, all treated at [place]; awaiting records - CT shows acute findings of SBO vs ileus - Appreciate Surgery consult; unable to find any acute findings and would recommend resuming diet as tolerated - Continue IVF, Zofran, morphine (2) Chronic malnutrition Code(s): E46 - UNSPECIFIED PROTEIN-CALORIE MALNUTRITION Comment: - Chronic, severe - See assessment by Bag Patcher (3) UTI (urinary tract infection) Comment: - Urine culture without growth - D/c ceftriaxone (4) Bipolar disorder Code(s): F31.9 - BIPOLAR DISORDER, UNSPECIFIED Comment: - Continue lorazepam, bupropion, Seroquel, hydroxyzine (5) History of DVT (deep vein thrombosis) Code(s): Z86.718 - PERSONAL HISTORY OF OTHER VENOUS THROMBOSIS AND EMBOLISM Comment: - Resume Eliquis (6) Hypothyroidism Code(s): E03.9 - HYPOTHYROIDISM, UNSPECIFIED Comment: - Continue levothyroxine (7) DVT prophylaxis Code(s): Z29.9 - ENCOUNTER FOR PROPHYLACTIC MEASURES, UNSPECIFIED Comment: - Eliquis (8) Full code status Code(s): Z78.9 - OTHER SPECIFIED HEALTH STATUS Comment: Status and Disposition: Inpatient. Anticipate d/c home when medically stable. Attending: Rosanne Duenas
[2019-04-17] MEDS: hydrOXYzine HCL TAB* 50 MG PO PRN (20:07)
[2019-04-18] MEDS: Morphine INJ* 2 MG/ML 1 ML SYRINGE (TWO MG - NEW SYRINGE VERSION) IV PRN ×4 (00:03→20:05)
[2019-04-18] MEDS: D5W 1/2 NS 1000 ML BAG* 1,000 ML IV SCH ×3 (00:03→20:30)
[2019-04-18] MEDS: hydrOXYzine HCL TAB* 50 MG PO PRN (04:13)
[2019-04-18] MEDS: Levothyroxine TAB* 25 MCG TAB PO SCH (05:10)
[2019-04-18] MEDS: QUEtiapine TAB* 100 MG PO SCH ×2 (08:22→20:08)
[2019-04-18] MEDS: Gabapentin CAP(*) 300 MG PO SCH ×3 (08:22→20:08)
[2019-04-18] MEDS: Apixaban* 5 MG TAB PO SCH ×2 (08:22→20:08)
[2019-04-18] MEDS: BuPROPion XL* 150 MG TAB.XL PO SCH (08:22)
[2019-04-18] MEDS: Pantoprazole TAB * 40 MG TAB PO SCH (08:22)
[2019-04-18] MEDS: Docusate CAP* 100 MG PO SCH ×2 (08:23→20:08)
[2019-04-18] MEDS: Ondansetron INJ* 2 MG/ML VIAL IV PRN ×2 (09:40→20:00)
--- NOTE | 2019-04-18 09:55 | PN ---
Subjective Date of Service: 04/18/19 Interval History: No acute issues overnight. Continues to report nausea and abdominal pain. Reports having bowel movement- light brown color with no blood. Has nausea, but no vomiting, no bloody emesis. Family History: Unchanged from Admission Social History: Unchanged from Admission Past Medical History: Unchanged from Admission Objective Active Medications: Apixaban (Eliquis*) 5 mg PO BID [facility] Last Admin: 04/18/19 08:22 Dose: 5 mg Bupropion HCl (Wellbutrin Xl *) 300 mg PO DAILY [facility] Last Admin: 04/18/19 08:22 Dose: 300 mg Docusate Sodium (Colace Cap*) 100 mg PO BID [facility] Last Admin: 04/18/19 08:23 Dose: 100 mg Gabapentin (Neurontin Cap(*)) 300 mg PO TID [facility] Last Admin: 04/18/19 08:22 Dose: 300 mg Heparin Sodium (Porcine) (Heparin Flush Picc/Ml/Cvc(*)) 1 ml FLUSH 0600,1800 [facility]; Protocol Last Admin: 04/18/19 04:16 Dose: Not Given Hydroxyzine HCl (Atarax Tab*) 50 mg PO Q8HR PRN PRN Reason: ANXIETY Last Admin: 04/18/19 04:13 Dose: 50 mg Dextrose/Sodium Chloride (D5w 1/2 Ns 1000 Ml Bag*) 1,000 mls @ 100 mls/hr IV PER RATE [facility] Last Admin: 04/18/19 00:03 Dose: 100 mls/hr Levothyroxine Sodium (Synthroid Tab*) 25 mcg PO DAILY@0600 [facility] Last Admin: 04/18/19 05:10 Dose: 25 mcg Lorazepam (Ativan Inj*) 0.5 mg IV PUSH Q8H PRN PRN Reason: ANXIETY Last Admin: 04/17/19 17:37 Dose: 0.5 mg Miscellaneous (Ativan Pyxis Cabrera) 1 ea N/A .ATIVAN IV CABRERA PRN PRN Reason: PYXIS CABRERA Morphine Sulfate (Morphine Inj (Syringe))*) 1 mg IV Q6H PRN PRN Reason: PAIN - SEVERE Last Admin: 04/18/19 09:40 Dose: 1 mg Ondansetron HCl (Zofran Inj*) 4 mg IV Q4H PRN PRN Reason: NAUSEA/VOMITING Last Admin: 04/18/19 09:40 Dose: 4 mg Pantoprazole Sodium (Protonix Tab*) 40 mg PO DAILY [facility] Last Admin: 04/18/19 08:22 Dose: 40 mg Quetiapine Fumarate (Seroquel Tab*) 100 mg PO BID [facility] Last Admin: 04/18/19 08:22 Dose: 100 mg Vital Signs - 8 hr 04/18/19 04/18/19 04/18/19 02:09 03:00 07:00 Temperature 97.8 F 97.8 F Pulse Rate 87 71 Respiratory 14 19 16 Rate Blood Pressure 77/54 99/69 (mmHg) O2 Sat by Pulse 95 95 Oximetry 04/18/19 04/18/19 08:22 09:40 Temperature Pulse Rate Respiratory 18 17 Rate Blood Pressure (mmHg) O2 Sat by Pulse Oximetry Oxygen Devices in Use Now: None Appearance: Lying in bed, not in distress Ears/Nose/Mouth/Throat: Mucous Membranes Moist Respiratory: Symmetrical Chest Expansion and Respiratory Effort, Clear to Auscultation Cardiovascular: NL Sounds; No Murmurs; No JVD, RRR Abdominal: - - Soft, Non-distended, normoactive bowel sounds. 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 GI Related - Recommend continuing antiemetics PRN; will monitor GI s/sx for impact on ability to advance diet. Glycemic Control - Will continue to monitor BG/ FS given recent hypoglycemia w/ NPO status. Texture Modification - Will monitor tolerance to regular textures and make recommendations as indicated. Malnutrition Assessment: Goals 1) Recommend advancing diet as able 2) Pt will tolerate least restrictive dietary textures w/o difficulty chewing w/ poor dentition 3) Adequate po intake to replete lean body mass and support hydration status 4) Improve fluid/electrolyte balance w/ adequate po intake and repletion PRN 5) Improve glycemic control w/ adequate po intake and repletion w/o s/sx hypoglycemia 6) Maintain bowel regularity w/ adequate po intake w/o development of diarrhea/constipation Result Diagrams: 04/17/19 05:45 04/17/19 05:45 Microbiology and Other Data: Microbiology 04/15/19 18:50 Aerobic Blood Culture - Preliminary Blood Venous No Growth Day 2 Anaerobic Blood Culture - Preliminary No Growth Day 2 04/15/19 18:13 Aerobic Blood Culture - Preliminary Blood Venous No Growth Day 2 Anaerobic Blood Culture - Preliminary No Growth Day 2 04/15/19 20:20 Urine Culture - Final Urine Assess/Plan/Problems-Billing Assessment: Ms. Callaway is a 43 yo F with PMH of bipolar, PTSD, anxiety, DVT, recent GI bleed, s/p gastric bypass, now with multiple SBO recently; who presented to the ED with c/o vomiting and abdominal pain and was found to have SBO vs ileus on CT scan. - Patient Problems (1) Abdominal pain Current Visit: Yes Status: Acute Code(s): R10.9 - UNSPECIFIED ABDOMINAL PAIN SNOMED Code(s): 02073663 Comment: - Worst in LLQ - Multiple SBO in the recent past, all treated at [place]; - CT shows acute findings of SBO vs ileus - Appreciate Surgery consult; unable to find any acute findings tolearting clear liquid, will advance to full liquid. - Continue IVF, Zofran, morphine (2) Bipolar disorder Current Visit: Yes Status: Acute Code(s): F31.9 - BIPOLAR DISORDER, UNSPECIFIED SNOMED Code(s): 19411979 Comment: - Continue lorazepam, bupropion, Seroquel, hydroxyzine (3) Chronic malnutrition Current Visit: Yes Status: Acute Code(s): E46 - UNSPECIFIED PROTEIN-CALORIE MALNUTRITION SNOMED Code(s): 5762377 Comment: - Chronic, severe - See assessment by Global Creative Chairman (4) DVT prophylaxis Current Visit: Yes Status: Acute Code(s): Z29.9 - ENCOUNTER FOR PROPHYLACTIC MEASURES, UNSPECIFIED SNOMED Code(s): 777950636 Comment: - Eliqumarine (5) History of DVT (deep vein thrombosis) Current Visit: Yes Status: Acute Code(s): Z86.718 - PERSONAL HISTORY OF OTHER VENOUS THROMBOSIS AND EMBOLISM SNOMED Code(s): 226217895 Comment: - Resume Eliqumarine (6) Hypothyroidism Current Visit: Yes Status: Acute Code(s): E03.9 - HYPOTHYROIDISM, UNSPECIFIED SNOMED Code(s): 18810682 Comment: - Continue levothyroxine (7) Anemia Current Visit: Yes Status: Acute Code(s): D64.9 - ANEMIA, UNSPECIFIED SNOMED Code(s): 067790704 Comment: drop in Hb. will get repeat H/H today. reports brown colored stool, check stool occult continue PPI. Status and Disposition: Inpatient. Anticipate d/c home when medically stable.
[2019-04-18 10:41] LABS: ABS Monocytes 0.2 10^3/ul (0-0.8); ABS Neutrophils 1.4 10^3/ul (1.5-7.7); Hematocrit 26 % (35-47); Hemoglobin 8.6 g/dL (12.0-16.0); Mean Corpuscular HGB Conc 33 g/dL (31-36); Mean Corpuscular Hemoglobin 32 pg (27-31); Mean Corpuscular Volume 96 fL (80-97); Mean Platelet Volume 7.8 fL (7.4-10.4); Platelet Count 210 10^3/uL (150-450); Red Blood Count 2.68 10^6 /uL (3.70-4.87); Red Cell Distribution Width 18 % (10-15); White Blood Count 2.7 10^3/uL (3.5-10.8)
[2019-04-18 11:01] LABS: BUN/Creatinine Ratio 5.4 (8-20); Calcium 7.3 mg/dL (8.6-10.3); EGFR African American 143.6 (>60); EGFR Non-African American 118.7 (>60); Potassium 3.9 mmol/L (3.5-5.0)
[2019-04-18] MEDS: LORazepam INJ* 2 MG/ML 1 ML VIAL IV PUSH PRN ×2 (11:32→20:29)
--- NOTE | 2019-04-18 12:58 | PN ---
CC: Dr. Zac [facility]; [facility] * PROGRESS NOTE: DATE OF VISIT: 04/18/19 LOCATION: Bariatric Surgery Service. HISTORY OF PRESENT ILLNESS: I saw the patient just now for a true bedside visit. Since yesterday, the patient was unable to answer any questions and simply fell asleep every time I inquired about something. Surgical history obtained and includes an open gastric bypass in 2001 when the patient had a weight of 540 pounds. The patient got as low as 220 pounds in the first 2 or 3 years postoperatively. The patient went back to the operating room a month later for exploratory laparotomy for various concerns that were not quite delineated, but the patient underwent cholecystectomy at that time and nothing else. She improved from that and started losing weight. She did undergo an oophorectomy approximately 3 years later followed by a hysterectomy through a lower midline incision. The patient then presented with a small bowel obstruction some time before 2009 and underwent a laparotomy, lysis of adhesions and what sounds to be a small bowel resection. She was discharged home within the first week and at home had a fascial dehiscence and intestinal evisceration. She went back to the hospital where she was taken to the OR and had her abdomen closed and was followed in the postoperative period. When she showed minimal improvement, she went back to the OR on that admission for again an exploration and had a portion of her bowel removed secondary to ischemia. There was a question of SMA syndrome but the patient did not get any arterial surgery and it is not quite clear if she got a duodenal jejunostomy at that time. The patient had additional small bowel obstructions that required lysis of adhesion and she is not sure if she had bowel resections or repairs at these times and these amounted 2 additional times. She underwent temporary gastrostomy and jejunostomy, but these were never utilized. Now, the patient states that she has lost close to 70 pounds in the last year. With most of that happening in the last few months. She is unable to eat or drink, vomiting most of the things. She has presented to multiple hospitals in the course of last month. She is concerned that she is wasting away. The patient does suffer with severe bipolar disorder and is treated for this and this has certainly complicated matters. This is the patient's first admission to our hospital but has had multiple ER visits. During these recent admission, the patient underwent an EGD, which was performed at [facility] and she was told that she had erosions and was told to take an acid reducing agent. She was also up for planned colonoscopy and had poor bowel prep and underwent 2 attempts at this. None of this data is available to me only her operative report from 2011 and the recent admission with just multiple labs and minimal information. The patient's workup since coming to our hospital has included a CAT scan both images and report reviewed as well as an upper GI which was reviewed with the radiologist yesterday by me which showed contrast flowing through the gastrojejunostomy with a large stomach pouch , a significant reflux, it was not quite clear whether a jejunoileostomy was. The patient has had dilated gastric remnant as well as proximal biliopancreatic limb on initial CAT scan. PHYSICAL EXAM: Today, the patient is afebrile. Blood pressure low at 77/54 and then repeat 99/69. LABORATORY DATA: Lab shows a white count of 2.7 with an absolute neutrophil count of 1.4 thousand. H and H 8.4/26 with significant decrease from the patient 's admission hematocrit of 37. MCV is 96. Chemistry panel reviewed which shows an albumin of 2.7 on admission and this should be repeated. 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 The patient's anatomy will certainly be complicated and I am entertaining the idea of performing a remnant gastrostomy either in the OR with an open approach versus Interventional Radiology with percutaneous attempt. If we can increase the patient's nutrition , we may improve her status with possibility of no additional intervention needed versus exploration. I discussed with the patient no intervention at this time this would require, although this is not an emergent need at this time. However, the patient may benefit from repeat labs continued IV fluids and possibly TPN and I will discuss this with the hospitalist service. The patient is also diagnosed here as malnutrition which can be secondary to a long bypass that she underwent many years ago with new complication of afferent limb syndrome. We will continue to follow closely. [id number]/[facility] #: [id number] [facility] HOSPITALNadege
--- NOTE | 2019-04-18 14:20 | CONS ---
CC: Dr. Wilkerson GASTROENTEROLOGY CONSULT REPORT: DATE OF CONSULT: 04/18/19 REQUESTING PROVIDER: Dr. Wilkerson. REASON FOR CONSULT: Abdominal pain, nausea, vomiting. HISTORY OF PRESENT ILLNESS: Ms. Callaway is a 43-year-old woman with a history of bipolar disorder, Maulik's thyroiditis, and gastric bypass surgery complicated by a recent GI bleed with unknown details, who is admitted with back and abdominal pain as well as nausea and vomiting. History is essentially limited to documentation in the chart as the patient was very somnolent at the time of visit. I attempted to wake her multiple times. She provided several short responses and then refused further attempts at interview. Per admission H and P, the patient was having back pain initially with radiation to the flanks. She then had radiation of pain to the left upper quadrant. Associated with severe nausea and vomiting. She reported weight loss , although amount of weight loss is not documented. There is note made of patient having four loose bowel movements per day, although I am not aware of how this differs from her baseline. During our very brief interview, Ms Callaway told me that she was doing "ok." She denied any ongoing pain, nausea or vomiting. She repeatedly stated "I am tired." PAST MEDICAL HISTORY: 1. Bipolar disorder, PTSD, and anxiety. 2. History of GI bleed a week and half ago at [facility]. Patient reportedly recalled being told she had an ulcer. She also recalled being treated with transfusion. 3. Right lower extremity DVT, on Eliquis. 4. Recurrent small bowel obstructions requiring lysis of adhesions. PAST SURGICAL HISTORY: 1. Gastric bypass surgery in 1998. 2. Appendectomy. 3. Hysterectomy. 4. Tubal ligation. 5. Cholecystectomy. 6. Hernia repair. 7. SMA repair. 8. Multiple small bowel obstructions with lysis of adhesions. HOME MEDICATIONS: 1. Amitiza 24 mcg b.i.d. 2. Eliquis 5 mg b.i.d. 3. Seroquel 100 mg b.i.d. 4. Bentyl 10 mg t.i.d. p.r.n. 5. Wellbutrin 300 mg daily. 6. Neurontin 300 mg t.i.d. 7. Colace 100 mg twice daily. 8. Hydroxyzine 50 mg every 8 hours p.r.n. 9. Levothyroxine 25 mcg daily. ALLERGIES: The patient is allergic to ERYTHROMYCIN, MACROBID, REGLAN, NSAIDS and TERBUTALINE. FAMILY HISTORY: Mother with tachycardia. Father with diabetes. SOCIAL HISTORY: Currently lives with her sister. Smoker. Prior history of alcohol abuse and marijuana use, although patient is reportedly sober. REVIEW OF SYSTEMS: Unable to complete due to the patient's lack of participation in interview. PHYSICAL EXAM: Vital Signs: Afebrile, heart rate 71, blood pressure 99/69, 95% on room air. General: The patient is sleeping very soundly. She would wake up at several points and answer questions with short replies before then falling back to sleep. She appears quite comfortable. HEENT: Mucous membranes appear moist. Pulmonary: The patient breathing comfortably. No wheezing or coughing. Cardiovascular: Regular rate and rhythm. Abdomen: Soft. Mildly tender diffusely. Extremities: No edema. DIAGNOSTIC STUDIES/LAB DATA: Labs reviewed. White count 4.7 on admission. Hgb now 2.7. Hemoglobin 12.5 down to 8.6 (compared to 8.1). MCV is 96. Platelet count 210. Iron percent saturation 53 and iron 69. Imaging: CT abdomen and pelvis on 04/15/19 demonstrated mild dilation of loops of proximal jejunum in left upper quadrant. A follow-up upper GI series on 05/26 demonstrated post Marizol-en-Y gastric bypass changes without evidence of obstruction. There was prominent reflux noted. IMPRESSION AND RECOMMENDATION: Ms. Callaway is a 43-year-old woman with bipolar disorder, gastric bypass complicated by multiple small bowel obstructions, and recent episode of GI bleeding requiring transfusion, who is admitted with nausea, vomiting and abdominal pain. The patient was too somnolent to participate in the interview, so I am unable to obtain any further history or clarification of her GI symptoms. Per nursing, she has not had any vomiting today, although she had reported mild nausea. She is still complaining of abdominal pain. Her blood counts have fluctuated a bit since she was admitted, although her hemoglobin today is up from yesterday arguing against ongoing bleeding. This is supported by absence of any hematochezia, melena, or hematemesis reports in the chart. Patient reportedly mentioned a very recent GI bleeding episode secondary to an ulcer, so I was suspect that she had an upper endoscopy as part of the work-up. An ulcer in setting of gastric bypass surgery may be an anastomotic or marginal ulcer. This could certainly cause abdominal discomfort. If the GI bleeding and ulcer history is accurate, then it does not appear that she is on adequate therapy as there is no PPI on her admission med list. - Please request records from prior hospitalization for GI bleed - I would recommend increasing PPI to b.i.d. In cases of anastomotic ulcer, then I recommend using a liquid PPI or opening a PPI capsule into applesauce as this helps with absorption in patients with post-bypass anatomy. Depending on clinical course and outside records, we can discuss if repeat endoscopy is needed. - Slowly advance diet as tolerated Thank you for this consult. GI will continue to follow along. [id number]/[facility] #: [id number] ELISA
[2019-04-18] MEDS: Lansoprazole SUSP* ORALSYR 3 MG/ML PO SCH (20:07)
[2019-04-19] MEDS ORDERED: NS 0.9% 500 ML* 500 ML IV ONE ×2 (00:27→11:49)
[2019-04-19] MEDS: Morphine INJ* 2 MG/ML 1 ML SYRINGE (TWO MG - NEW SYRINGE VERSION) IV PRN ×4 (03:24→22:59)
[2019-04-19] MEDS: Levothyroxine TAB* 25 MCG TAB PO SCH (05:52)
[2019-04-19 06:12] LABS: ABS Lymphocytes 1.2 10^3/ul (1.0-4.8); ABS Monocytes 0.2 10^3/ul (0-0.8); ABS Neutrophils 1.5 10^3/ul (1.5-7.7); Hematocrit 25 % (35-47); Hemoglobin 8.6 g/dL (12.0-16.0); Lymphocyte % 40.9 %; Mean Corpuscular HGB Conc 34 g/dL (31-36); Mean Corpuscular Hemoglobin 33 pg (27-31); Mean Corpuscular Volume 96 fL (80-97); Mean Platelet Volume 7.8 fL (7.4-10.4); Platelet Count 212 10^3/uL (150-450); Red Blood Count 2.62 10^6 /uL (3.70-4.87); Red Cell Distribution Width 18 % (10-15); White Blood Count 2.9 10^3/uL (3.5-10.8)
[2019-04-19 06:25] LABS: Albumin 1.8 g/dL (3.2-5.2); Albumin/Globulin Ratio 0.9 (1-3); BUN/Creatinine Ratio 8.3 (8-20); EGFR African American 171.6 (>60); EGFR Non-African American 141.8 (>60); Total Bilirubin 0.3 mg/dL (0.2-1.0); Total Protein 3.8 g/dL (6.4-8.9)
[2019-04-19] MEDS: D5W 1/2 NS 1000 ML BAG* 1,000 ML IV SCH ×2 (07:42→19:21)
[2019-04-19] MEDS: QUEtiapine TAB* 100 MG PO SCH ×2 (07:57→21:18)
[2019-04-19] MEDS: BuPROPion XL* 150 MG TAB.XL PO SCH (07:57)
[2019-04-19] MEDS: LORazepam INJ* 2 MG/ML 1 ML VIAL IV PUSH PRN ×2 (07:57→18:04)
[2019-04-19] MEDS: Docusate CAP* 100 MG PO SCH ×2 (07:57→21:19)
[2019-04-19] MEDS: Apixaban* 5 MG TAB PO SCH (07:57)
[2019-04-19] MEDS ORDERED: Influenza VAC *QUAD* 2019-20* 0.5 ML SYRINGE IM ONE (09:00)
--- NOTE | 2019-04-19 09:46 | PN ---
Progress Note - Progress Note Date of Service: 04/19/19 SOAP: Subjective: Pt seen and examined. continued abdo pain. nausea, no appetite Objective: Temp Pulse Resp BP Pulse Ox 97.3 F 106 16 102/65 96 04/19/19 07:15 04/19/19 07:15 04/19/19 07:57 04/19/19 08:30 04/19/19 07:15 abdo: soft/ distended/ tender w/o rebound hyperactive BS Assessment: malnutrition, possible bowel obstruction Plan: encourage PO abdo xray today to follw contrast TPN likely remnant gastrostomy next week if not obstructed, otherwise ex lap
[2019-04-19] MEDS: Lansoprazole SUSP* ORALSYR 3 MG/ML PO SCH ×2 (10:03→21:19)
[2019-04-19] MEDS: Gabapentin CAP(*) 300 MG PO SCH ×3 (10:08→21:18)
--- NOTE | 2019-04-19 12:02 | PN ---
Subjective Date of Service: 04/19/19 Interval History: One episode of non-bloody vomiting earlier this morning. Was having abdominal pain earlier, when I evaluated the patient she said "No pain right now" No fever, no chills. Family History: Unchanged from Admission Social History: Unchanged from Admission Past Medical History: Unchanged from Admission Objective Active Medications: Apixaban (Eliquis*) 5 mg PO BID [facility] Last Admin: 04/19/19 07:57 Dose: 5 mg Bupropion HCl (Wellbutrin Xl *) 300 mg PO DAILY [facility] Last Admin: 04/19/19 07:57 Dose: 300 mg Docusate Sodium (Colace Cap*) 100 mg PO BID [facility] Last Admin: 04/19/19 07:57 Dose: 100 mg Gabapentin (Neurontin Cap(*)) 300 mg PO TID [facility] Last Admin: 04/19/19 10:08 Dose: Not Given Heparin Sodium (Porcine) (Heparin Flush Picc/Ml/Cvc(*)) 1 ml FLUSH 0600,1800 [facility]; Protocol Last Admin: 04/19/19 05:59 Dose: Not Given Hydroxyzine HCl (Atarax Tab*) 50 mg PO Q8HR PRN PRN Reason: ANXIETY Last Admin: 04/18/19 04:13 Dose: 50 mg Dextrose/Sodium Chloride (D5w 1/2 Ns 1000 Ml Bag*) 1,000 mls @ 100 mls/hr IV PER RATE [facility] Last Admin: 04/19/19 07:42 Dose: 100 mls/hr Lansoprazole (Lansoprazole Susp* Oralsyr) 30 mg PO BID [facility] Last Admin: 04/19/19 10:03 Dose: 30 mg Levothyroxine Sodium (Synthroid Tab*) 25 mcg PO DAILY@0600 [facility] Last Admin: 04/19/19 05:52 Dose: 25 mcg Lorazepam (Ativan Inj*) 0.5 mg IV PUSH Q8H PRN PRN Reason: ANXIETY Last Admin: 04/19/19 07:57 Dose: 0.5 mg Miscellaneous (Ativan Pyxis Cabrera) 1 ea N/A .ATIVAN IV CABRERA PRN PRN Reason: PYXIS CABRERA Morphine Sulfate (Morphine Inj (Syringe))*) 1 mg IV Q6H PRN PRN Reason: PAIN - SEVERE Last Admin: 04/19/19 10:03 Dose: 1 mg Ondansetron HCl (Zofran Inj*) 4 mg IV Q4H PRN PRN Reason: NAUSEA/VOMITING Last Admin: 04/18/19 20:00 Dose: 4 mg Quetiapine Fumarate (Seroquel Tab*) 100 mg PO BID [facility] Last Admin: 04/19/19 07:57 Dose: 100 mg Vital Signs - 8 hr 04/19/19 04/19/19 04/19/19 04:40 07:15 07:57 Temperature 97.3 F Pulse Rate 106 Respiratory 15 16 16 Rate Blood Pressure 108/30 (mmHg) O2 Sat by Pulse 96 Oximetry 04/19/19 04/19/19 04/19/19 08:00 08:30 09:00 Temperature Pulse Rate Respiratory 17 16 Rate Blood Pressure 102/65 (mmHg) O2 Sat by Pulse Oximetry 04/19/19 04/19/19 04/19/19 10:03 11:15 11:18 Temperature 97.2 F Pulse Rate 89 Respiratory 17 16 16 Rate Blood Pressure 84/58 (mmHg) O2 Sat by Pulse 98 Oximetry Oxygen Devices in Use Now: None Appearance: She is lying in bed, not in distress Eyes: PERRLA Ears/Nose/Mouth/Throat: Mucous Membranes Moist Respiratory: Symmetrical Chest Expansion and Respiratory Effort, Clear to Auscultation Cardiovascular: RRR, No Edema Abdominal: - - normoactive bowel sounds, soft, some guarding, no rigidity, no rebound tenderness, there is mild generalized tenderness Extremities: No Edema Skin: No Rash or Ulcers Neurological: Alert and Oriented x 3 - Nutrition: Malnutrition Diagnosis/Plan Malnutrition Assessment by Registered Dietitian: Malnutrition Assessment Clinical Characteristics Chronic,Severe Malnutrition Assessment: Muscle Wasting - Clavicular muscles (severe) Criteria Inadequate Oral Intake - 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 GI Related - Recommend continuing antiemetics PRN; will monitor GI s/sx for impact on ability to advance diet. Glycemic Control - Will continue to monitor BG/ FS given recent hypoglycemia w/ NPO status. Texture Modification - Will monitor tolerance to regular textures and make recommendations as indicated. Malnutrition Assessment: Goals 1) Recommend advancing diet as able 2) Pt will tolerate least restrictive dietary textures w/o difficulty chewing w/ poor dentition 3) Adequate po intake to replete lean body mass and support hydration status 4) Improve fluid/electrolyte balance w/ adequate po intake and repletion PRN 5) Improve glycemic control w/ adequate po intake and repletion w/o s/sx hypoglycemia 6) Maintain bowel regularity w/ adequate po intake w/o development of diarrhea/constipation Result Diagrams: 04/19/19 05:57 04/19/19 05:57 Microbiology and Other Data: Microbiology 04/15/19 18:50 Aerobic Blood Culture - Preliminary Blood Venous No Growth Day 2 Anaerobic Blood Culture - Preliminary No Growth Day 2 04/15/19 18:13 Aerobic Blood Culture - Preliminary Blood Venous No Growth Day 2 Anaerobic Blood Culture - Preliminary No Growth Day 2 04/15/19 20:20 Urine Culture - Final Urine Assess/Plan/Problems-Billing Assessment: Ms. Callaway is a 43 yo F with PMH of bipolar, PTSD, anxiety, DVT, recent GI bleed, s/p gastric bypass, now with multiple SBO recently; who presented to the ED with c/o vomiting and abdominal pain and was found to have SBO vs ileus on CT scan. - Patient Problems (1) Abdominal pain Current Visit: Yes Status: Acute Code(s): R10.9 - UNSPECIFIED ABDOMINAL PAIN SNOMED Code(s): 35661082 Comment: - Worst in [place] - Multiple SBO in the recent past, all treated at [place]; - CT shows acute findings of SBO vs ileus - Appreciate Surgery consult; unable to find any acute findings- recommends TPN , Abd xray done today, consider possible ex lap later on depending on progression - on full liquid diet - Continue IVF, Zofran, morphine Additionally mention of possible GI bleeding with requiring transfusion- records from [place] reviewed, unable to determine when and if this happened. she did have a c-scope this month at [place]- which was a poor prep and were unable to get a good eval. Case discussed with GI- they evalauted the patient, plan for EGD tomorrow. will make NPO after midnight, hold eliquis this evening dose. on PPI BID. (2) Bipolar disorder Current Visit: Yes Status: Acute Code(s): F31.9 - BIPOLAR DISORDER, UNSPECIFIED SNOMED Code(s): 85512194 Comment: - Continue lorazepam, bupropion, Seroquel, hydroxyzine (3) Chronic malnutrition Current Visit: Yes Status: Acute Code(s): E46 - UNSPECIFIED PROTEIN-CALORIE MALNUTRITION SNOMED Code(s): 4731136 Comment: - Chronic, severe - See assessment by Furniture Detailer - plan for PICC line tomorrow, and then TPN (4) DVT prophylaxis Current Visit: Yes Status: Acute Code(s): Z29.9 - ENCOUNTER FOR PROPHYLACTIC MEASURES, UNSPECIFIED SNOMED Code(s): 764894584 Comment: - Eliquis (5) History of DVT (deep vein thrombosis) Current Visit: Yes Status: Acute Code(s): Z86.718 - PERSONAL HISTORY OF OTHER VENOUS THROMBOSIS AND EMBOLISM SNOMED Code(s): 961854913 Comment: will hold eliquis for EGD tomorrow. (6) Hypothyroidism Current Visit: Yes Status: Acute Code(s): E03.9 - HYPOTHYROIDISM, UNSPECIFIED SNOMED Code(s): 95540535 Comment: - Continue levothyroxine (7) Anemia Current Visit: Yes Status: Acute Code(s): D64.9 - ANEMIA, UNSPECIFIED SNOMED Code(s): 710173762 Comment: H/h stable since yesterday. reports brown colored stool, check stool occult GI consulted. Continue with PPI EGD likely tomorrow. Status and Disposition: Inpatient. Anticipate d/c home when medically stable.
[2019-04-19] MEDS: Ondansetron INJ* 2 MG/ML VIAL IV PRN (16:31)
[2019-04-20] MEDS: hydrOXYzine HCL TAB* 50 MG PO PRN ×2 (00:46→21:01)
[2019-04-20] MEDS: LORazepam INJ* 2 MG/ML 1 ML VIAL IV PUSH PRN ×3 (02:53→21:50)
[2019-04-20] MEDS: Morphine INJ* 2 MG/ML 1 ML SYRINGE (TWO MG - NEW SYRINGE VERSION) IV PRN ×3 (04:53→18:32)
[2019-04-20 05:21] LABS: ABS Lymphocytes 0.8 10^3/ul (1.0-4.8); ABS Monocytes 0.3 10^3/ul (0-0.8); ABS Neutrophils 1.6 10^3/ul (1.5-7.7); Eosinophil % 0.7 %; Hematocrit 25 % (35-47); Hemoglobin 8.4 g/dL (12.0-16.0); Lymphocyte % 29.4 %; Mean Corpuscular HGB Conc 34 g/dL (31-36); Mean Corpuscular Hemoglobin 32 pg (27-31); Mean Corpuscular Volume 95 fL (80-97); Mean Platelet Volume 7.5 fL (7.4-10.4); Platelet Count 203 10^3/uL (150-450); Red Blood Count 2.65 10^6 /uL (3.70-4.87); Red Cell Distribution Width 17 % (10-15); White Blood Count 2.7 10^3/uL (3.5-10.8)
[2019-04-20] MEDS: Levothyroxine TAB* 25 MCG TAB PO SCH (05:21)
[2019-04-20 05:27] LABS: INR 1.12 (0.82-1.09)
[2019-04-20] MEDS: D5W 1/2 NS 1000 ML BAG* 1,000 ML IV SCH ×2 (05:35→20:55)
[2019-04-20 05:38] LABS: Albumin 1.6 g/dL (3.2-5.2); Albumin/Globulin Ratio 0.8 (1-3); BUN/Creatinine Ratio 9.3 (8-20); Calcium 7.3 mg/dL (8.6-10.3); EGFR African American 149.8 (>60); EGFR Non-African American 123.8 (>60); Potassium 3.8 mmol/L (3.5-5.0); Total Bilirubin 0.3 mg/dL (0.2-1.0); Total Protein 3.6 g/dL (6.4-8.9)
[2019-04-20] MEDS: BuPROPion XL* 150 MG TAB.XL PO SCH (09:20)
[2019-04-20] MEDS: Docusate CAP* 100 MG PO SCH ×2 (09:21→21:01)
[2019-04-20] MEDS: Lansoprazole SUSP* ORALSYR 3 MG/ML PO SCH ×2 (09:21→20:56)
[2019-04-20] MEDS: Gabapentin CAP(*) 300 MG PO SCH ×3 (09:21→21:01)
[2019-04-20] MEDS: QUEtiapine TAB* 100 MG PO SCH ×2 (09:21→21:01)
[2019-04-20] MEDS: Ondansetron INJ* 2 MG/ML VIAL IV PRN (11:26)
[2019-04-20] MEDS ORDERED: fentaNYL* 50 MCG/ML 2 ML VIAL (100 MCG VIAL) ONE (14:51)
[2019-04-20] MEDS ORDERED: Midazolam* 1 MG/ML 10 ML VIAL (10 MG) ONE (14:51)
--- NOTE | 2019-04-20 17:11 | PRO ---
CC: Zac Adrian MD; Dr. Stanley * DATE OF PROCEDURE: 04/20/19 - ROOM #419 PROCEDURE: EGD. INDICATION: Anemia, abdominal pain. REFERRING PHYSICIAN: Zac Adrian MD MEDICATIONS GIVEN: 25 mcg IV fentanyl, 6 mg IV Versed. DESCRIPTION OF PROCEDURE: After the EGD procedure, including the risks, benefits, and alternatives, not limited to perforation, surgery and/or were explained to Ms. Callaway, written consent was then obtained, IV medication was given and a bite-block was placed between the teeth. An Olympus gastroscope was then inserted into the patient's mouth, advanced down the esophagus, into the stomach. The esophagus appeared absolutely normal. No strictures, rings, or erosive esophagitis was seen. Easily entered the gastric pouch. The patient did have a gastric bypass surgery many years ago. There appeared to be a lumen or an anastomosis; however, when I entered this anastomosis, it almost had the appearance of a diverticulum. Gentle nudging of the tissue caused some bleeding of the mucosa. I could not tell if this was the anastomosis with ulceration or just a blind pouch, I really did not feel comfortable in probing this area extensively due to the friability. I then searched for another potential anastomosis and really could not find any other way out of the stomach. I then terminated the procedure, withdrew the scope. She was returned to the hospital room in stable condition. IMPRESSION: 1. Successful upper endoscopy. 2. Unknown location of the anastomosis, potentially strictured and/or scarred with ulceration. 3. Will need to re-eval with another EGD at some point; will try to advance diet and monitor Carlitos Zimmer MD [id number]/[facility] #: [id number] [facility]
--- NOTE | 2019-04-20 18:25 | PN ---
Subjective Date of Service: 04/20/19 Interval History: Pt is starting to eat today. She is tolerating fluids well, but has nausea with solids. Last BM was 04/16, but is passing flatus. No vomiting since . She continues to have LBP that radiates to LLQ abdomen. She has no other complaints today. Discussed TPN, to which she is agreeable. Family History: Unchanged from Admission Social History: Unchanged from Admission Past Medical History: Unchanged from Admission Objective Active Medications: Bupropion HCl (Bupropion Xl*) 300 mg PO DAILY MAKAYLA Docusate Sodium (Colace Cap*) 100 mg PO BID MAKAYLA Gabapentin (Neurontin Cap(*)) 300 mg PO TID MAKAYLA Heparin Sodium (Porcine) (Heparin Flush Picc/Ml/Cvc(*)) 0 ml FLUSH 0600,1800 MAKAYLA Hydroxyzine HCl (Atarax Tab*) 50 mg PO Q8HR PRN Dextrose/Sodium Chloride (D5w 1/2 Ns 1000 Ml Bag*) 1,000 mls @ 100 mls/hr IV PER RATE MAKAYLA Dextrose 500 ml/ Amino Acids 850 ml/ Sterile Water 150 ml/Fat Emulsion Intravenous 250 ml/ Sodium Chloride 100 meq/Potassium Chloride 50 meq/Potassium Phosphate 15 mmole/Calcium Gluconate 15 meq/Magnesium Sulfate 10 meq/ Multivitamins 10 ml/ Trace Metals 1 ml/ Nutrition ( Parenteral) 1,850.721 mls @ 77.113 mls/hr CENTR 1700 MAKAYLA Lansoprazole (Lansoprazole Susp* Oralsyr) 30 mg PO BID MAKAYLA Levothyroxine Sodium (Synthroid Tab*) 25 mcg PO DAILY@0600 MAKAYLA Lorazepam (Ativan Inj*) 0.5 mg IV PUSH Q8H PRN Miscellaneous (Ativan Pyxis Cabrera) 1 ea N/A .ATIVAN IV CABRERA PRN Morphine Sulfate (Morphine Inj (Syringe))*) 1 mg IV Q6H PRN Ondansetron HCl (Zofran Inj*) 4 mg IV Q4H PRN Quetiapine Fumarate (Seroquel Tab*) 100 mg PO BID [facility] Vital Signs: Temp Pulse Resp BP Pulse Ox 98.2 F 78 22 83/62 100 04/20/19 17:20 04/20/19 17:20 04/20/19 17:20 04/20/19 17:20 04/20/19 17:20 Oxygen Devices in Use Now: None Appearance: Pt appears pale, weak, ill. She appears frail and older than states age. Eyes: No Scleral Icterus, PERRLA Ears/Nose/Mouth/Throat: Clear Oropharnyx, Mucous Membranes Moist, - - Missing teeth Neck: NL Appearance and Movements; NL JVP, Trachea Midline Respiratory: Symmetrical Chest Expansion and Respiratory Effort, Clear to Auscultation Cardiovascular: NL Sounds; No Murmurs; No JVD, RRR, No Edema Abdominal: - - Abdomen with hypoactive BS. Tender to palpation diffusely. 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 GI Related - Recommend continuing antiemetics PRN; will monitor GI s/sx for impact on ability to advance diet. Glycemic Control - Will continue to monitor BG/ FS given recent hypoglycemia w/ NPO status. Texture Modification - Will monitor tolerance to regular textures and make recommendations as indicated. Malnutrition Assessment: Goals 1) Recommend advancing diet as able 2) Pt will tolerate least restrictive dietary textures w/o difficulty chewing w/ poor dentition 3) Adequate po intake to replete lean body mass and support hydration status 4) Improve fluid/electrolyte balance w/ adequate po intake and repletion PRN 5) Improve glycemic control w/ adequate po intake and repletion w/o s/sx hypoglycemia 6) Maintain bowel regularity w/ adequate po intake w/o development of diarrhea/constipation Result Diagrams: 04/20/19 05:05 04/20/19 05:05 Microbiology and Other Data: Microbiology 04/15/19 18:50 Aerobic Blood Culture - Preliminary Blood Venous No Growth Day 2 Anaerobic Blood Culture - Preliminary No Growth Day 2 04/15/19 18:13 Aerobic Blood Culture - Preliminary Blood Venous No Growth Day 2 Anaerobic Blood Culture - Preliminary No Growth Day 2 04/15/19 20:20 Urine Culture - Final Urine Assess/Plan/Problems-Billing Assessment: Ms. Callaway is a 43 yo F with PMH of bipolar, PTSD, anxiety, DVT, recent GI bleed, s/p gastric bypass, now with multiple SBO recently; who presented to the ED with c/o vomiting and abdominal pain and was found to have SBO vs ileus on CT scan. - Patient Problems (1) Abdominal pain Comment: - Worst in LLQ - Multiple SBO in the recent past, all treated at [place] - CT shows acute findings of SBO vs ileus - Appreciate Surgery consult; unable to find any acute findings- recommends TPN , Abd xray done today, consider possible ex lap later depending on progression - GI consulted, following - EGD done today, and was limited by anatomy; possible barium swallow tomorrow - Advancing diet to bariatric; NPO after midnight for possible barium swallow - Continue IVF, Zofran, morphine Additionally mention of possible GI bleeding in past requiring transfusion- records from [place] reviewed, unable to determine when and if this happened. She did have a c-scope this month at [place]- which was a poor prep and were unable to get a good eval. Case discussed with GI. (2) Anemia Comment: -H/h stable since yesterday. -reports brown colored stool, check stool occult -GI consulted. -Continue with PPI -EGD limited due to anatomy; planning for barium swallow vs exploratory lap (3) Chronic malnutrition Comment: - Chronic, severe - See assessment by Marketing Program Manager - PICC in place; TPN to start tomorrow (4) Hypothyroidism Comment: - Continue levothyroxine (5) Bipolar disorder Comment: - Continue lorazepam, bupropion, Seroquel, hydroxyzine (6) History of DVT (deep vein thrombosis) Comment: -Elaquis on hold for EGD today, possible surgery (7) DVT prophylaxis Comment: - Eliquis on hold for EGD today and possible surgery - SCDs ordered (8) Full code status Comment: Status and Disposition: Inpatient. Anticipate d/c home when medically stable.
[2019-04-21] MEDS: Morphine INJ* 2 MG/ML 1 ML SYRINGE (TWO MG - NEW SYRINGE VERSION) IV PRN ×4 (00:34→18:29)
[2019-04-21] MEDS: LORazepam INJ* 2 MG/ML 1 ML VIAL IV PUSH PRN ×3 (05:35→21:30)
[2019-04-21] MEDS: Levothyroxine TAB* 25 MCG TAB PO SCH (05:36)
[2019-04-21 06:12] LABS: ABS Lymphocytes 1.1 10^3/ul (1.0-4.8); ABS Monocytes 0.3 10^3/ul (0-0.8); Eosinophil % 1.2 %; Hematocrit 24 % (35-47); Hemoglobin 8.2 g/dL (12.0-16.0); Lymphocyte % 44.9 %; Mean Corpuscular HGB Conc 35 g/dL (31-36); Mean Corpuscular Hemoglobin 33 pg (27-31); Mean Corpuscular Volume 95 fL (80-97); Nucleated Red Blood Cells % 0.1; Platelet Count 196 10^3/uL (150-450); Red Blood Count 2.49 10^6 /uL (3.70-4.87); Red Cell Distribution Width 18 % (10-15); White Blood Count 2.4 10^3/uL (3.5-10.8)
[2019-04-21] MEDS: D5W 1/2 NS 1000 ML BAG* 1,000 ML IV SCH (07:46)
[2019-04-21 08:42] LABS: Albumin 1.7 g/dL (3.2-5.2); Calcium 7.3 mg/dL (8.6-10.3); Magnesium 1.3 mg/dL (1.9-2.7); Potassium 4.2 mmol/L (3.5-5.0); Total Bilirubin 0.3 mg/dL (0.2-1.0)
[2019-04-21 08:48] LABS: Albumin/Globulin Ratio 0.9 (1-3); BUN/Creatinine Ratio 13.8 (8-20); EGFR African American 137.9 (>60); Globulin 1.8 g/dL (2-4); Phosphorus 4.7 mg/dL (2.5-5.0); Total Protein 3.5 g/dL (6.4-8.9)
[2019-04-21] MEDS ORDERED: Magnesium Sulfate IV* 3 GM in NS 0.9% 100 ML* 100 ML IVPB ONE (08:51)
[2019-04-21] MEDS: QUEtiapine TAB* 100 MG PO SCH ×2 (08:53→20:07)
[2019-04-21] MEDS: Gabapentin CAP(*) 300 MG PO SCH ×3 (08:53→20:07)
[2019-04-21] MEDS: Docusate CAP* 100 MG PO SCH ×2 (08:54→20:07)
[2019-04-21] MEDS: BuPROPion XL* 300 MG TAB.XL PO SCH (08:54)
[2019-04-21] MEDS: Lansoprazole SUSP* ORALSYR 3 MG/ML PO SCH ×2 (08:55→20:08)
--- NOTE | 2019-04-21 11:08 | PN ---
Progress Note - Progress Note Date of Service: 04/21/19 Note: Surgery Progress: S: Feels "lousy". Still having pain. Had upper endoscopy yesterday and believes she is scheduled for another UGI study today (will try to confirm w/ Dr. Stanley) . She was able to eat some food after the endoscopy, but also vomiting some. Passing flatus. Last BM 04/16. O: Vital Signs - 8 hr 04/21/19 04/21/19 04/21/19 04:00 05:35 06:09 Temperature 96.9 F Pulse Rate 72 Respiratory 18 14 14 Rate Blood Pressure 90/62 (mmHg) O2 Sat by Pulse 98 Oximetry 04/21/19 04/21/19 04/21/19 07:00 07:31 07:49 Temperature 98.1 F Pulse Rate 72 Respiratory 14 14 14 Rate Blood Pressure 92/65 (mmHg) O2 Sat by Pulse 99 Oximetry 04/21/19 04/21/19 08:53 08:59 Temperature Pulse Rate Respiratory 14 Rate Blood Pressure 102/68 (mmHg) O2 Sat by Pulse Oximetry Intake and Output Last 24 Hours 04/19/19 04/20/19 04/21/19 04/22/19 06:59 06:59 06:59 06:59 Intake Total 4920 3160 0 1167 Output Total 600 2600 Balance 4920 2560 -2600 1167 Intake: IV Fluids 2810 2520 1167 D5 1/2 NS 2810 1995 1167 NS 525 Oral 2110 640 0 Output: Urine 600 2600 Other: Estimated Void Large Large Large # Bowel Movements 0 0 # Voids 1 3 0 Gen: appears comfortable; disposition much improved: calm, reasonably responsive Heart: reg Lungs: clear ant Abd: flat, nondistended; +BS; soft; moderate nonlocalized tenderness throughout abd Laboratory Tests 04/21/19 04/21/19 05:30 05:30 WBC 2.4 L Hgb 8.2 L Hct 24 L Absolute Neuts (auto) 1.0 L Absolute Lymphs (auto) 1.1 Magnesium 1.3 L Albumin 1.7 L Prealbumin 11 L A: significant protein malnutition P: discussed w/ Dr. Stanley; plan for feeding gastrostomy 04/22; cont to hold Eliquis
--- NOTE | 2019-04-21 15:50 | PN ---
Subjective Date of Service: 04/21/19 Interval History: Pt states she feels "blah" today. She continues to have abdominal pain worse in LLQ. She states that she has had some nausea today, but no vomiting. She has been keeping down liquids, and has eaten peanut butter, crackers, sandwich, sherbert. No BM since 04/16; passing flatus. Family History: Unchanged from Admission Social History: Unchanged from Admission Past Medical History: Unchanged from Admission Objective Active Medications: Bupropion HCl (Bupropion Xl*) 300 mg PO DAILY MAKAYLA Docusate Sodium (Colace Cap*) 100 mg PO BID MAKAYLA Gabapentin (Neurontin Cap(*)) 300 mg PO TID MAKAYLA Heparin Sodium (Porcine) (Heparin Flush Picc/Ml/Cvc(*)) 0 ml FLUSH 0600,1800 MAKAYLA Hydroxyzine HCl (Atarax Tab*) 50 mg PO Q8HR PRN Dextrose 500 ml/ Amino Acids 850 ml/ Sterile Water 150 ml/Fat Emulsion Intravenous 250 ml/ Sodium Chloride 100 meq/Potassium Chloride 50 meq/Potassium Phosphate 15 mmole/Calcium Gluconate 15 meq/Magnesium Sulfate 10 meq/ Multivitamins 10 ml/ Trace Metals 1 ml/ Nutrition ( Parenteral) 1,850.721 mls @ 77.113 mls/hr CENTR 1700 MAKAYLA Lansoprazole (Lansoprazole Susp* Oralsyr) 30 mg PO BID MAKAYLA Levothyroxine Sodium (Synthroid Tab*) 25 mcg PO DAILY@0600 MAKAYLA Lorazepam (Ativan Inj*) 0.5 mg IV PUSH Q8H PRN Miscellaneous (Ativan Pyxis Cabrera) 1 ea N/A .ATIVAN IV CABRERA PRN Morphine Sulfate (Morphine Inj (Syringe))*) 1 mg IV Q6H PRN Ondansetron HCl (Zofran Inj*) 4 mg IV Q4H PRN Quetiapine Fumarate (Seroquel Tab*) 100 mg PO BID MAKAYLA Sucralfate (Sucralfate Susp) 1 gm PO QID [facility] Vital Signs: Temp Pulse Resp BP Pulse Ox 98.5 F 78 14 98/62 99 04/21/19 11:19 04/21/19 11:19 04/21/19 13:38 04/21/19 11:19 04/21/19 11:19 Oxygen Devices in Use Now: None Appearance: Pt is ill-appearing middle-aged woman; malnourished, frail; appears older than stated age. Eyes: No Scleral Icterus, PERRLA Ears/Nose/Mouth/Throat: Clear Oropharnyx, Mucous Membranes Moist, - - Missing teeth Neck: NL Appearance and Movements; NL JVP, Trachea Midline Respiratory: Symmetrical Chest Expansion and Respiratory Effort, Clear to Auscultation Cardiovascular: NL Sounds; No Murmurs; No JVD, RRR, No Edema Abdominal: - - BS hyperactive throughout. Abdomen soft, diffusely tender to palpation. 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 GI Related - Recommend continuing antiemetics PRN; will monitor GI s/sx for impact on ability to advance diet. Glycemic Control - Will continue to monitor BG/ FS given recent hypoglycemia w/ NPO status. Texture Modification - Will monitor tolerance to regular textures and make recommendations as indicated. Malnutrition Assessment: Goals 1) Recommend advancing diet as able 2) Pt will tolerate least restrictive dietary textures w/o difficulty chewing w/ poor dentition 3) Adequate po intake to replete lean body mass and support hydration status 4) Improve fluid/electrolyte balance w/ adequate po intake and repletion PRN 5) Improve glycemic control w/ adequate po intake and repletion w/o s/sx hypoglycemia 6) Maintain bowel regularity w/ adequate po intake w/o development of diarrhea/constipation Result Diagrams: 04/21/19 05:30 04/21/19 05:30 Microbiology and Other Data: Microbiology 04/15/19 18:50 Aerobic Blood Culture - Preliminary Blood Venous No Growth Day 2 Anaerobic Blood Culture - Preliminary No Growth Day 2 04/15/19 18:13 Aerobic Blood Culture - Preliminary Blood Venous No Growth Day 2 Anaerobic Blood Culture - Preliminary No Growth Day 2 04/15/19 20:20 Urine Culture - Final Urine Assess/Plan/Problems-Billing Assessment: Ms. Callaway is a 43 yo F with PMH of bipolar, PTSD, anxiety, DVT, recent GI bleed, s/p gastric bypass, now with multiple SBO recently; who presented to the ED with c/o vomiting and abdominal pain and was found to have SBO vs ileus on CT scan. - Patient Problems (1) Abdominal pain Comment: - Most pain in LLQ - Multiple SBO in the recent past, all treated at [place] - CT shows acute findings of SBO vs ileus - Appreciate Surgery consult; unable to find any acute findings- recommends TPN , Abd xray done, consider possible ex lap later depending on progression - GI consulted, following - EGD done, and was limited by anatomy - Plan for repeat EGD this week - Continue soft diet as tolerated - Continue TPN - Continue IVF, Zofran, morphine Additionally mention of possible GI bleeding in past requiring transfusion- records from [facility] reviewed, unable to determine when and if this happened. She did have a c-scope this month at [facility]- which was a poor prep and were unable to get a good eval. Case discussed with GI. (2) Anemia Comment: -H/h stable -Possibly partially dilutional -Reports brown colored stool, check stool occult -Pt has had no BM since 04/16 -GI consulted -Continue with PPI (3) Leukopenia Comment: -Pt with persistent leukopenia x5 days; stable -Possibly partially dilutional -If this persists, will obtain heme/onc consult (4) Chronic malnutrition Comment: - Chronic, severe - See assessment by Bat Boy/Girl - PICC in place - TPN starting today (5) Hypothyroidism Comment: - Continue levothyroxine (6) Bipolar disorder Comment: - Continue lorazepam, bupropion, Seroquel, hydroxyzine (7) History of DVT (deep vein thrombosis) Comment: -Pt with h/o DVT August 2018, on Eliquis -This was during hospitalization at [facility], and was likely provoked -Eliquis held by surgery/GI for possible upcoming interventions -Will start Lovenox 40 subQ for prophylaxis, as patient has received appx 10 months of AC treatment for DVT (8) DVT prophylaxis Comment: - Eliquis on hold for surgery - Start lovenox 40 subQ daily - SCDs ordered (9) Full code status Comment: Status and Disposition: Inpatient. Anticipate d/c home when medically stable.
[2019-04-21] MEDS: Sucralfate SUSP 1 GM/10 ml 10 ML UDC PO SCH ×2 (16:00→20:08)
[2019-04-21] MEDS ORDERED: TPN* 24 HR with Dextrose 50% Water* 500 ML, Amino Acid Infusion 10%* 850 ML, Sterile Wa... CENTR SCH ×12 (17:00)
[2019-04-21] MEDS: Ondansetron INJ* 2 MG/ML VIAL IV PRN (18:30)
[2019-04-21] MEDS: hydrOXYzine HCL TAB* 50 MG PO PRN (18:36)
[2019-04-21] MEDS: Enoxaparin(*) 40 MG/0.4 ML SYR SUBCUT SCH (19:48)
[2019-04-22] MEDS ORDERED: NS 0.9% 500 ML* 500 ML IV ONE (02:30)
[2019-04-22] MEDS: LORazepam INJ* 2 MG/ML 1 ML VIAL IV PUSH PRN ×3 (04:11→22:55)
[2019-04-22] MEDS: Morphine INJ* 2 MG/ML 1 ML SYRINGE (TWO MG - NEW SYRINGE VERSION) IV PRN ×3 (05:29→17:30)
[2019-04-22] MEDS: Levothyroxine TAB* 25 MCG TAB PO SCH (05:35)
[2019-04-22 05:53] LABS: ABS Lymphocytes 1.2 10^3/ul (1.0-4.8); ABS Monocytes 0.3 10^3/ul (0-0.8); ABS Neutrophils 1.4 10^3/ul (1.5-7.7); Eosinophil % 1.2 %; Hematocrit 26 % (35-47); Hemoglobin 8.5 g/dL (12.0-16.0); Lymphocyte % 41.3 %; Mean Corpuscular HGB Conc 33 g/dL (31-36); Mean Corpuscular Hemoglobin 32 pg (27-31); Mean Corpuscular Volume 96 fL (80-97); Nucleated Red Blood Cells % 0.1; Platelet Count 196 10^3/uL (150-450); Red Cell Distribution Width 18 % (10-15)
[2019-04-22 06:12] LABS: Albumin 1.9 g/dL (3.2-5.2); Albumin/Globulin Ratio 0.9 (1-3); BUN/Creatinine Ratio 17.2 (8-20); Calcium 7.5 mg/dL (8.6-10.3); EGFR African American 137.9 (>60); Globulin 2.1 g/dL (2-4); Potassium 3.9 mmol/L (3.5-5.0); Total Bilirubin 0.3 mg/dL (0.2-1.0)
[2019-04-22] MEDS: hydrOXYzine HCL TAB* 50 MG PO PRN (09:09)
[2019-04-22] MEDS: Gabapentin CAP(*) 300 MG PO SCH ×3 (09:09→19:57)
[2019-04-22] MEDS: Lansoprazole SUSP* ORALSYR 3 MG/ML PO SCH ×2 (10:03→19:58)
[2019-04-22] MEDS: QUEtiapine TAB* 100 MG PO SCH ×2 (10:04→19:57)
[2019-04-22] MEDS: Sucralfate SUSP 1 GM/10 ml 10 ML UDC PO SCH ×4 (10:04→19:59)
[2019-04-22] MEDS: Docusate CAP* 100 MG PO SCH ×2 (10:04→19:57)
[2019-04-22] MEDS: BuPROPion XL* 300 MG TAB.XL PO SCH (10:04)
[2019-04-22 11:38] LABS: Magnesium 1.5 mg/dL (1.9-2.7)
[2019-04-22] MEDS ORDERED: Magnesium Sulfate 2 GM IV* 2 GM/50 ML BAG IVPB ONE (11:40)
--- NOTE | 2019-04-22 14:12 | PN ---
Progress Note - Progress Note Date of Service: 04/22/19 SOAP: Subjective: Pt comfortable in bed in NAD. Reports nausea and decreased appetite. + Flatus -BM, + Nausea - Vomit[] Objective: Vital Signs Temp 98.2 F 04/22/19 11:10 Pulse 94 04/22/19 11:10 Resp 18 04/22/19 13:01 BP 90/68 04/22/19 11:10 Pulse Ox 100 04/22/19 11:10 Intake & Output 04/21/19 04/22/19 04/22/19 18:59 06:59 18:59 Intake Total 1966 184 200 Balance 19662 200 Intake: IV Fluids 1857 500 D5 1/2 NS 1857 NS 500 TPN/PPN 962 Oral 110 380 200 Other: Estimated Void Medium # Bowel Movements 0 # Voids 1 PEX: General: Appears comfortable in bed, in NAD. ABD: Soft, Non distended, generalized tenderness, lower abdomen > upper abdomen + BS's EXT: Calves soft B/L [] Assessment: 43 yo female with malnutrition on TPN now [] Plan: Await possible repeat Upper scope. Planned G Tube on hold awaiting scope. Eliquis on hold, on lovenox []
--- NOTE | 2019-04-22 16:13 | PN ---
Subjective Date of Service: 04/22/19 Interval History: Pt with continued pain in LLQ, L back. Pain is decreased due to recent administration of pain medications. She has been eating, but a very small amount that she describes as less than 1 full meal per day. She states that her nausea is under good control. She did vomit yesterday, but none today. She had a small BM today and continues to pass flatus. She has no other complaints today. Pt states that she weighted 190 2 months ago, and is down to 120 today. Again, she averages 1 full meal per day or less, due to nausea and vomiting. Family History: Unchanged from Admission Social History: Unchanged from Admission Past Medical History: Unchanged from Admission Objective Active Medications: Bupropion HCl (Bupropion Xl*) 300 mg PO DAILY MAKAYLA Docusate Sodium (Colace Cap*) 100 mg PO BID MAKAYLA Enoxaparin Sodium (Lovenox(*)) 40 mg SUBCUT Q24H MAKAYLA Gabapentin (Neurontin Cap(*)) 300 mg PO TID MAKAYLA Heparin Sodium (Porcine) (Heparin Flush Picc/Ml/Cvc(*)) 0 ml FLUSH 0600,1800 MAKAYLA Hydroxyzine HCl (Atarax Tab*) 50 mg PO Q8HR PRN Dextrose 500 ml/ Amino Acids 850 ml/ Sterile Water 150 ml/Fat Emulsion Intravenous 250 ml/ Sodium Chloride 100 meq/Potassium Chloride 50 meq/Potassium Phosphate 15 mmole/Calcium Gluconate 15 meq/Magnesium Sulfate 10 meq/ Multivitamins 10 ml/ Trace Metals 1 ml/ Nutrition ( Parenteral) 1,850.721 mls @ 77.113 mls/hr CENTR 1700 MAKAYLA Dextrose 500 ml/ Amino Acids 850 ml/ Sterile Water 150 ml/Fat Emulsion Intravenous 250 ml/ Sodium Chloride 100 meq/Potassium Chloride 50 meq/Potassium Phosphate 15 mmole/Calcium Gluconate 15 meq/Magnesium Sulfate 20 meq/ Multivitamins 10 ml/ Trace Metals 1 ml/ Nutrition ( Parenteral) 1,853.1841 mls @ 77.113 mls/hr CENTR 1700 MAKAYLA Lansoprazole (Lansoprazole Susp* Oralsyr) 30 mg PO BID MAKAYLA Levothyroxine Sodium (Synthroid Tab*) 25 mcg PO DAILY@0600 MAKAYLA Lorazepam (Ativan Inj*) 0.5 mg IV PUSH Q8H PRN Miscellaneous (Ativan Pyxis Cabrera) 1 ea N/A .ATIVAN IV CABRERA PRN Morphine Sulfate (Morphine Inj (Syringe))*) 1 mg IV Q6H PRN Ondansetron HCl (Zofran Inj*) 4 mg IV Q4H PRN Quetiapine Fumarate (Seroquel Tab*) 100 mg PO BID MAKAYLA Sucralfate (Sucralfate Susp) 1 gm PO QID MAKALYA Vital Signs: Temp Pulse Resp BP Pulse Ox 97.5 F 98 16 96/68 100 04/22/19 15:55 04/22/19 15:55 04/22/19 15:55 04/22/19 15:55 04/22/19 11:10 Oxygen Devices in Use Now: None Appearance: Pt is pale white woman who is laying in bed with HOB elevated. She appears chronically ill and weak, although appears more animated today than yesterday. She appears to be in no acute distress. Eyes: No Scleral Icterus, PERRLA Ears/Nose/Mouth/Throat: NL Teeth, Lips, Gums, Clear Oropharnyx, Mucous Membranes Moist, - - Missing teeth Neck: NL Appearance and Movements; NL JVP, Trachea Midline Respiratory: Symmetrical Chest Expansion and Respiratory Effort, Clear to Auscultation Cardiovascular: NL Sounds; No Murmurs; No JVD, RRR, No Edema Abdominal: - - Hyperactive BS. Nondistended. Midline incision. 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 GI Related - Recommend continuing antiemetics PRN; will monitor GI s/sx for impact on ability to advance diet. Glycemic Control - Will continue to monitor BG/ FS given recent hypoglycemia w/ NPO status. Texture Modification - Will monitor tolerance to regular textures and make recommendations as indicated. Malnutrition Assessment: Goals 1) Recommend advancing diet as able 2) Pt will tolerate least restrictive dietary textures w/o difficulty chewing w/ poor dentition 3) Adequate po intake to replete lean body mass and support hydration status 4) Improve fluid/electrolyte balance w/ adequate po intake and repletion PRN 5) Improve glycemic control w/ adequate po intake and repletion w/o s/sx hypoglycemia 6) Maintain bowel regularity w/ adequate po intake w/o development of diarrhea/constipation Result Diagrams: 04/22/19 05:35 04/22/19 05:35 Microbiology and Other Data: Microbiology 04/15/19 18:50 Aerobic Blood Culture - Preliminary Blood Venous No Growth Day 2 Anaerobic Blood Culture - Preliminary No Growth Day 2 04/15/19 18:13 Aerobic Blood Culture - Preliminary Blood Venous No Growth Day 2 Anaerobic Blood Culture - Preliminary No Growth Day 2 04/15/19 20:20 Urine Culture - Final Urine Assess/Plan/Problems-Billing Assessment: Ms. Callaway is a 43 yo F with PMH of bipolar, PTSD, anxiety, DVT, recent GI bleed, s/p gastric bypass, now with multiple SBO recently; who presented to the ED with c/o vomiting and abdominal pain and was found to have SBO vs ileus on CT scan. - Patient Problems (1) Abdominal pain Comment: - Possible small bowel obstruction vs ileus - Most pain in LLQ - Multiple SBO in the recent past, all treated at [place] - CT shows acute findings of SBO vs ileus - Appreciate Surgery consult; unable to find any acute findings- recommends TPN , Abd xray done, consider possible ex lap depending on progression - GI consulted, following - EGD done, limited by anatomy - Plan for repeat EGD this week - Continue soft diet as tolerated - Continue TPN - Continue IVF, Zofran, morphine Additionally mention of possible GI bleeding in past requiring transfusion- records from [place] reviewed, unable to determine when and if this happened. She did have a c-scope this month at [place]- which was a poor prep and were unable to get a good eval. Case discussed with GI. (2) Anemia Comment: -H/h stable -Iron studies resemble ACD -Possibly partially dilutional -Stool for blood negative -GI consulted -Continue with PPI (3) Leukopenia Comment: -Pt with persistent leukopenia x5 days; stable -IVF d/c; leukopenia trending up -Possibly partially dilutional -If this persists, will obtain heme/onc consult (4) Chronic malnutrition Comment: - Chronic, severe - See assessment by Factory Focus Technician - PICC in place - Continue TPN (5) Hypothyroidism Comment: - Continue levothyroxine (6) Bipolar disorder Comment: - Continue lorazepam, bupropion, Seroquel, hydroxyzine (7) History of DVT (deep vein thrombosis) Comment: -Pt with h/o DVT August 2018, on Eliquis -This occurred during hospitalization at [place], therefore likely provoked -Eliquis held by surgery/GI for possible upcoming interventions -Will start Lovenox 40 subQ for prophylaxis, as patient has received appx 10 months of AC treatment for DVT (8) DVT prophylaxis Comment: - Eliquis on hold for surgery - Start lovenox 40 subQ daily - SCDs (9) Full code status Comment: Status and Disposition: Inpatient. Anticipate d/c home when medically stable.
[2019-04-22] MEDS ORDERED: Polyethylene Glycol 3350* 17 GM PACKET PO PRN (16:23)
[2019-04-22] MEDS: TPN* 24 HR with Dextrose 50% Water* 500 ML, Amino Acid Infusion 10%* 850 ML, Sterile Wa... CENTR SCH ×12 (17:31)
[2019-04-22] MEDS: Enoxaparin(*) 40 MG/0.4 ML SYR SUBCUT SCH (19:59)
[2019-04-23] MEDS: Morphine INJ* 2 MG/ML 1 ML SYRINGE (TWO MG - NEW SYRINGE VERSION) IV PRN ×4 (03:45→21:54)
[2019-04-23] MEDS: LORazepam INJ* 2 MG/ML 1 ML VIAL IV PUSH PRN ×3 (06:10→22:33)
[2019-04-23] MEDS: Levothyroxine TAB* 25 MCG TAB PO SCH (06:11)
[2019-04-23 06:48] LABS: Hematocrit 25 % (35-47); Hemoglobin 8.5 g/dL (12.0-16.0); Mean Corpuscular HGB Conc 34 g/dL (31-36); Mean Corpuscular Hemoglobin 33 pg (27-31); Mean Corpuscular Volume 96 fL (80-97); Mean Platelet Volume 8.1 fL (7.4-10.4); Platelet Count 192 10^3/uL (150-450); Red Blood Count 2.62 10^6 /uL (3.70-4.87); Red Cell Distribution Width 18 % (10-15); White Blood Count 3.7 10^3/uL (3.5-10.8)
[2019-04-23 07:22] LABS: Calcium 7.5 mg/dL (8.6-10.3); Magnesium 1.6 mg/dL (1.9-2.7); Potassium 4.1 mmol/L (3.5-5.0); Total Bilirubin 0.3 mg/dL (0.2-1.0)
[2019-04-23 07:28] LABS: BUN/Creatinine Ratio 23.9 (8-20); EGFR African American 180.3 (>60); Globulin 2.3 g/dL (2-4); Phosphorus 3.2 mg/dL (2.5-5.0); Total Protein 4.3 g/dL (6.4-8.9)
[2019-04-23 07:29] LABS: Albumin/Globulin Ratio 0.9 (1-3)
[2019-04-23] MEDS: BuPROPion XL* 300 MG TAB.XL PO SCH (08:17)
[2019-04-23] MEDS: Lansoprazole SUSP* ORALSYR 3 MG/ML PO SCH ×2 (08:17→21:59)
[2019-04-23] MEDS: Docusate CAP* 100 MG PO SCH ×2 (08:17→21:58)
[2019-04-23] MEDS: Gabapentin CAP(*) 300 MG PO SCH ×3 (08:17→21:58)
[2019-04-23] MEDS: Sucralfate SUSP 1 GM/10 ml 10 ML UDC PO SCH ×4 (08:17→21:59)
[2019-04-23] MEDS: QUEtiapine TAB* 100 MG PO SCH ×2 (08:17→21:58)
[2019-04-23] MEDS ORDERED: Magnesium Sulfate IV* 3 GM in NS 0.9% 100 ML* 100 ML IVPB ONE (09:00)
[2019-04-23] MEDS: Ondansetron INJ* 2 MG/ML VIAL IV PRN ×3 (09:50→20:27)
[2019-04-23] MEDS: hydrOXYzine HCL TAB* 50 MG PO PRN ×2 (12:44→21:58)
--- NOTE | 2019-04-23 16:39 | PN ---
Progress Note - Progress Note Date of Service: 04/23/19 Note: Surgery Progress: S: "about the same" i.e., she is tolerating liquids "for the most part", but tolerating very little solid food (she will try to eat some, but then vomit); she is still having significant pain, requiring regular morphine (though only 1 mg dose). She has been moving her bowels. O: Vital Signs - 8 hr 04/23/19 04/23/19 04/23/19 08:40 09:50 10:49 Temperature Pulse Rate Respiratory 16 16 16 Rate Blood Pressure (mmHg) O2 Sat by Pulse Oximetry 04/23/19 04/23/19 04/23/19 11:31 12:30 14:25 Temperature 98.0 F Pulse Rate 87 Respiratory 16 16 Rate Blood Pressure 82/56 100/68 (mmHg) O2 Sat by Pulse 99 Oximetry 04/23/19 04/23/19 15:52 15:57 Temperature Pulse Rate Respiratory 18 16 Rate Blood Pressure (mmHg) O2 Sat by Pulse Oximetry Intake and Output Last 24 Hours 04/21/19 04/22/19 04/23/19 04/24/19 06:59 06:59 06:59 06:59 Intake Total 0 3809 3312 1993 Output Total 2600 600 Balance -2600 3809 2712 1993 Intake: IV Fluids 2357 D5 1/2 NS 1857 NS 500 IVPB 50 106 Magnesium 50 106 TPN/PPN 962 2252 1408 Oral 0 490 1010 480 Output: Urine 2600 600 Other: Estimated Void Large Medium Medium # Bowel Movements 0 0 0 1 Estimated Stool Amount Small Large # Voids 0 1 2 Gen: lying in bed; appears comfortable Heart: reg; mildly tachy Lungs: clear Abd: flat, nondistended; +BS; soft; moderate tenderness across lower abdomen without guarding; upper abd relatively nontender Extr: no edema, but obvious muscle wasting at thenar and hypothenar eminences. Labs noted, including severe hypoalbuminema and hypo-prealbuminemia A: severe protein and calorie malnutrition, slightly improved since initiation of TPN P: as patient is able to tolerate liquids, I suggested she minimize solid food intake and maximize liquid protein supplements. Spoke w/ dietary and hospitalist as well as with Dr. Stanley. Cont PPI and sucralfate. May be d/c'd off TPN [facility] and GI f/u when po intake is adequate (over the next 24 - 48 hrs).
--- NOTE | 2019-04-23 16:53 | PN ---
Subjective Date of Service: 04/23/19 Interval History: Pt states she had vomiting x1 yesterday, x1 today. Yesterday she tolerated mashed potatoes, 3-4 sherberts. Todays she attempted to eat 1/4 sandwich, which lead to vomiting. She has difficulty deciphering what foods lead to vomiting and what she tolerates, but she does believe that she tolerates liquids well without vomiting. She continues to have pain in the abdomen, mostly in the periumbilical region. She has no other complaints today. Family History: Unchanged from Admission Social History: Unchanged from Admission Past Medical History: Unchanged from Admission Objective Active Medications: Bupropion HCl (Bupropion Xl*) 300 mg PO DAILY MAKAYLA Docusate Sodium (Colace Cap*) 100 mg PO BID MAKAYLA Enoxaparin Sodium (Lovenox(*)) 40 mg SUBCUT Q24H MAKAYLA Gabapentin (Neurontin Cap(*)) 300 mg PO TID [facility] Heparin Sodium (Porcine) (Heparin Flush Picc/Ml/Cvc(*)) 0 ml FLUSH 0600,1800 MAKAYLA Hydroxyzine HCl (Atarax Tab*) 50 mg PO Q8HR PRN Dextrose 500 ml/ Amino Acids 850 ml/ Sterile Water 150 ml/Fat Emulsion Intravenous 250 ml/ Sodium Chloride 100 meq/Potassium Chloride 50 meq/Potassium Phosphate 15 mmole/Calcium Gluconate 15 meq/Magnesium Sulfate 20 meq/ Multivitamins 10 ml/ Trace Metals 1 ml/ Nutrition ( Parenteral) 1,853.1841 mls @ 77.113 mls/hr CENTR 1700 MAKAYLA Lansoprazole (Lansoprazole Susp* Oralsyr) 30 mg PO BID [facility] Levothyroxine Sodium (Synthroid Tab*) 25 mcg PO DAILY@0600 MAKAYLA Lorazepam (Ativan Inj*) 0.5 mg IV PUSH Q8H PRN Miscellaneous (Ativan Pyxis Cabrera) 1 ea N/A .ATIVAN IV CABRERA PRN Morphine Sulfate (Morphine Inj (Syringe))*) 1 mg IV Q6H PRN Ondansetron HCl (Zofran Inj*) 4 mg IV Q4H PRN Polyethylene Glycol/Electrolytes (Miralax*) 17 gm PO 0800,2100 PRN Quetiapine Fumarate (Seroquel Tab*) 100 mg PO BID MAKAYLA Sucralfate (Sucralfate Susp) 1 gm PO QID [facility] Vital Signs: Temp Pulse Resp BP Pulse Ox 98.0 F 87 16 100/68 99 04/23/19 11:31 04/23/19 11:31 04/23/19 15:57 04/23/19 12:30 04/23/19 11:31 Oxygen Devices in Use Now: None Appearance: Pt is laying in bed with HOB elevated. Malnourished and thin; appears chronically ill and pale, but appears somewhat improved from recent days. She is in no acute distress. Eyes: No Scleral Icterus, PERRLA Ears/Nose/Mouth/Throat: Clear Oropharnyx, Mucous Membranes Moist, - - Missing teeth. Neck: NL Appearance and Movements; NL JVP, Trachea Midline Respiratory: Symmetrical Chest Expansion and Respiratory Effort, Clear to Auscultation Cardiovascular: NL Sounds; No Murmurs; No JVD, RRR, No Edema Abdominal: No Hepatosplenomegaly, - - BS normoactive throughout. No abdominal distention. Tenderness to palpation LLQ, periumbilical region. 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 GI Related - Recommend continuing antiemetics PRN; will monitor GI s/sx for impact on ability to advance diet. Glycemic Control - Will continue to monitor BG/ FS given recent hypoglycemia w/ NPO status. Texture Modification - Will monitor tolerance to regular textures and make recommendations as indicated. Malnutrition Assessment: Goals 1) Recommend advancing diet as able 2) Pt will tolerate least restrictive dietary textures w/o difficulty chewing w/ poor dentition 3) Adequate po intake to replete lean body mass and support hydration status 4) Improve fluid/electrolyte balance w/ adequate po intake and repletion PRN 5) Improve glycemic control w/ adequate po intake and repletion w/o s/sx hypoglycemia 6) Maintain bowel regularity w/ adequate po intake w/o development of diarrhea/constipation Result Diagrams: 04/23/19 06:21 04/23/19 06:21 Microbiology and Other Data: Microbiology 04/15/19 18:50 Aerobic Blood Culture - Preliminary Blood Venous No Growth Day 2 Anaerobic Blood Culture - Preliminary No Growth Day 2 04/15/19 18:13 Aerobic Blood Culture - Preliminary Blood Venous No Growth Day 2 Anaerobic Blood Culture - Preliminary No Growth Day 2 04/15/19 20:20 Urine Culture - Final Urine Assess/Plan/Problems-Billing Assessment: Ms. Callaway is a 43 yo F with PMH of bipolar, PTSD, anxiety, DVT, recent GI bleed, s/p gastric bypass, now with multiple SBO recently; who presented to the ED with c/o vomiting and abdominal pain and was found to have SBO vs ileus on CT scan. - Patient Problems (1) Abdominal pain Comment: - Ulceration at anastomosis plus possible SBO vs ileus - Multiple SBO in the recent past, all treated at [facility] - CT shows acute findings of SBO vs ileus - Appreciate Surgery consult: no acute findings; recommend TPN for now and follow up outpatient for further eval, if necessary - Appreciate GI consult: EGD performed revealing ulceration at anastomosis; recommend continued carafate, PPI until re-scope in approximately 2 weeks outpatient - Continue soft diet as tolerated - Continue TPN - Continue IVF, Zofran, morphine Additionally mention of possible GI bleeding in past requiring transfusion- records from [facility] reviewed, unable to determine when and if this happened. She did have a c-scope this month at [facility]- which was a poor prep and were unable to get a good eval. Case discussed with GI. (2) Anemia Comment: -H/h stable -Iron studies resemble ACD -Possibly partially dilutional -Stool for blood negative -Continue with PPI -Continue to monitor (3) Chronic malnutrition Comment: - Chronic, severe - See assessment by Corem[employer] Supervisor - PICC in place - Continue TPN - Soft diet as tolerated with liquid protein supplements, such as Ensure, Beneprotein (4) Leukopenia Comment: -Resolved; monitor for need for intervention -Pt with persistent leukopenia x5 days; stable -IVF d/c; leukopenia trending up; likely dilutional (5) Hypothyroidism Comment: - Continue levothyroxine (6) Bipolar disorder Comment: - Continue lorazepam, bupropion, Seroquel, hydroxyzine (7) History of DVT (deep vein thrombosis) Comment: -Pt with h/o DVT August 2018, on Eliquis -This occurred during hospitalization at [facility], therefore likely provoked -Eliquis held by surgery/GI for EGD and other interventions -Continue Lovenox 40 subQ for prophylaxis, as patient has received appx 10 months of AC treatment for DVT (8) DVT prophylaxis Comment: - Lovenox 40 subQ daily - SCDs (9) Full code status Comment: Status and Disposition: Inpatient. Anticipate d/c home when medically stable.
[2019-04-23] MEDS: TPN* 24 HR with Dextrose 50% Water* 500 ML, Amino Acid Infusion 10%* 850 ML, Sterile Wa... CENTR SCH ×12 (17:38)
[2019-04-23] MEDS: Enoxaparin(*) 40 MG/0.4 ML SYR SUBCUT SCH (21:57)
[2019-04-24] MEDS: Ondansetron INJ* 2 MG/ML VIAL IV PRN ×2 (04:29→08:50)
[2019-04-24] MEDS ORDERED: NS 0.9% 500 ML* 500 ML IV ONE (04:37)
[2019-04-24] MEDS: Levothyroxine TAB* 25 MCG TAB PO SCH (05:10)
[2019-04-24 05:47] LABS: Albumin 2.2 g/dL (3.2-5.2); BUN/Creatinine Ratio 26.7 (8-20); Calcium 7.4 mg/dL (8.6-10.3); EGFR African American 184.9 (>60); EGFR Non-African American 152.8 (>60); Magnesium 1.7 mg/dL (1.9-2.7); Phosphorus 3.3 mg/dL (2.5-5.0); Potassium 4.2 mmol/L (3.5-5.0); Total Bilirubin 0.3 mg/dL (0.2-1.0)
[2019-04-24 07:10] LABS: Globulin 2.3 g/dL (2-4); Total Protein 4.5 g/dL (6.4-8.9)
[2019-04-24] MEDS ORDERED: Magnesium Sulfate IV* 3 GM in NS 0.9% 100 ML* 100 ML IVPB ONE (09:25)
[2019-04-24] MEDS: Lansoprazole SUSP* ORALSYR 3 MG/ML PO SCH (09:59)
[2019-04-24] MEDS: Morphine INJ* 2 MG/ML 1 ML SYRINGE (TWO MG - NEW SYRINGE VERSION) IV PRN (09:59)
[2019-04-24] MEDS: Gabapentin CAP(*) 300 MG PO SCH ×2 (10:00→12:27)
[2019-04-24] MEDS: Sucralfate SUSP 1 GM/10 ml 10 ML UDC PO SCH ×2 (10:00→12:26)
[2019-04-24] MEDS: BuPROPion XL* 300 MG TAB.XL PO SCH (10:00)
[2019-04-24] MEDS: QUEtiapine TAB* 100 MG PO SCH (10:00)
[2019-04-24 12:13] VITALS: BP 92/64
[2019-04-24] MEDS: hydrOXYzine HCL TAB* 50 MG PO PRN (12:26)
[2019-04-24] MEDS: Docusate CAP* 100 MG PO SCH (12:26)
--- NOTE | 2019-04-24 12:54 | PN ---
Progress Note - Progress Note Date of Service: 04/24/19 SOAP: Subjective: Comfortable in bed. C/O Vomit last night after eating mashed potatoes and crackers. Has not had problem with liquids. not nauseous now [] Objective: Vital Signs Temp 98.6 F 04/24/19 11:15 Pulse 86 04/24/19 11:15 Resp 16 04/24/19 12:27 BP 92/64 04/24/19 12:13 Pulse Ox 99 04/24/19 11:15 Intake & Output 04/23/19 04/24/19 04/24/19 18:59 06:59 18:59 Intake Total 2114 1211 280 Balance 2114 1211 280 Intake: IV Fluids 1211 50 NS 500 50 TPN 711 IVPB 106 110 Magnesium 106 110 TPN/PPN 1408 Oral 600 0 120 Other: Estimated Void Medium Large # Bowel Movements 1 0 Estimated Stool Amount Large # Voids 2 1 Laboratory Results - last 24 hr 04/23/19 04/23/19 04/24/19 16:43 20:29 00:14 Sodium Potassium Chloride Carbon Dioxide Anion Gap BUN Creatinine Est GFR ( Amer) Est GFR (Non-Af Amer) BUN/Creatinine Ratio Glucose POC Glucose (mg/dL) 133 H 109 H 135 H Calcium Phosphorus Magnesium Total Bilirubin AST ALT Alkaline Phosphatase Total Protein Albumin Globulin Albumin/Globulin Ratio Prealbumin Triglycerides Cholesterol 04/24/19 04/24/19 04/24/19 05:15 08:27 12:30 Sodium 139 Potassium 4.2 Chloride 111 Carbon Dioxide 27 Anion Gap 1 L BUN 12 Creatinine 0.45 L Est GFR ( Amer) 184.9 Est GFR (Non-Af Amer) 152.8 BUN/Creatinine Ratio 26.7 H Glucose 63 L POC Glucose (mg/dL) 111 H 135 H Calcium 7.4 L Phosphorus 3.3 Magnesium 1.7 L Total Bilirubin 0.30 AST 24 ALT 15 Alkaline Phosphatase 46 Total Protein 4.5 L Albumin 2.2 L Globulin 2.3 Albumin/Globulin Ratio 1.0 Prealbumin 18 Triglycerides 127 Cholesterol 117 PEX: CHEST: CTA CVS: RRR ABD: abdomen soft, minimal tender throughout, no guarding EXT: calves non tender, soft [] Assessment: Severely malnourished, tolerating liquids, not tolerating solids. Plan: I reiterated with the patient the need to increase her nutrition. Since she tolerates liquids, Ensure Enlive should be her mainstay, consume as tolerated. Advised to please refrain from solids until her nutrition status has improved. Continue PPI and Carafate, Bariatric f/u with [facility] and GI f/u also once maintaining adequate input. []
--- NOTE | 2019-04-24 23:54 | DS ---
DISCHARGE SUMMARY: DATE OF ADMISSION: DATE OF DISCHARGE: ADDENDUM: ATTENDING PHYSICIAN: Marlin Reyes DO (dictated by KATHLEEN Morgan). KATHLEEN LEIJA [id number]/[facility] #: [id number] MTDD
--- NOTE | 2019-04-25 01:09 | DS ---
DISCHARGE SUMMARY: DATE OF ADMISSION: 04/16/19 DATE OF DISCHARGE: 04/24/19 PRIMARY CARE PROVIDER: Dr. Zac Adrian. ATTENDING PHYSICIAN: DO Hong Chapman (dictated by KATHLEEN Morgan). OTHER PROVIDERS: 1. Dr. Carlitos Zimmer. 2. Dr. Troy Stanley. PRIMARY DIAGNOSES: 1. Ulcer at stomach anastomosis. 2. Possible stricture at anastomosis. 3. Small bowel obstruction versus ileus. 4. Severe protein-calorie malnutrition. 5. Anemia. 6. Transient leukopenia, likely related to IV fluid. SECONDARY DIAGNOSES: 1. 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 The patient states she had a recent gastrointestinal bleed and transfusion. Records obtained and this is not discoverable from records obtained from [place]. 2. Anxiety. 3. Bipolar. 4. Posttraumatic stress disorder. 5. History of gastric bypass surgery. STUDIES WHILE IN THE HOSPITAL: 1. CT abdomen and pelvis, impression: There are stable postoperative changes of gastric bypass surgery. There is slight increase in mild dilation of loops of proximal jejunum in the left upper quadrant, cannot exclude focal ileus versus some degree of small bowel obstruction. 2. Upper GI series, impression: Status post Erica-en-Y gastric bypass surgery. No evidence for obstruction of the erica limb or proximal small bowel, prominent gastroesophageal reflux. 3. Abdominal x-ray, impression: Contrast in the right colon and transverse colon, dilated stomach is noted. 4. EGD, impression: Successful upper endoscopy, unknown location of the anastomosis, potentially strictured and/or scarred with ulceration. DISCHARGE MEDICATIONS: Home medications: 1. Apixaban 5 mg p.o. b.i.d. The patient was on this for likely provoked DVT. Discuss with primary care provider the duration of need. 2. Bupropion 300 mg p.o. daily. 3. Dicyclomine 10 mg p.o. t.i.d. p.r.n. 4. Docusate 100 mg p.o. b.i.d. 5. Gabapentin 300 mg p.o. t.i.d. 6. Hydroxyzine 50 mg p.o. q.8 hours p.r.n. 7. Levothyroxine 25 mcg p.o. daily. 8. Amitiza 24 mcg p.o. b.i.d. 9. Quetiapine 100 mg p.o. b.i.d. New home medications: 1. Pantoprazole 40 mg p.o. b.i.d. 2. Sucralfate 1 g p.o. 4 times a day. HISTORY OF PRESENT ILLNESS/HOSPITAL COURSE: Ms. Callaway is a 43-year-old female with past medical history of hypothyroidism; reported history of GI bleed , status post transfusion; history of gastric bypass surgery; history of recurrent small bowel obstructions requiring lysis of adhesion, who presented to the ER with complaints of intractable vomiting and abdominal pain. For full and complete details, please see the history and physical dictated by Dr. Alec Wilkerson, but in short, the patient presented with these symptoms and she is found to have a small bowel obstruction versus ileus on CAT scan. The patient was admitted to the hospital, Surgery was consulted and recommended to hold Eliquis and obtain upper GI. This was performed and revealed no obstruction. The patient continued to have vomiting throughout her stay. Gastroenterology was consulted, recommend PPI b.i.d. and slowly advancing diet. The patient eventually received an EGD that revealed possible stricture of the anastomosis and ulceration of the anastomosis. The patient was recommended to start on b.i.d. pantoprazole and continue Carafate. The patient will follow outpatient with Dr. Zimmer for a repeat EGD in approximately 2 weeks; his office will call with the appointment date and time. The patient was assessed by dietitian and deemed to be chronically severely protein and calorie malnourished. She was n.p.o. at the beginning of her stay and her diet was slowly advanced. It was recommended that she start TPN which was initiated. She appears to have difficulty with solid foods and frequently vomits after she ingests them. She has little to no difficulty with oral intake of liquids. The patient was considered for gastrotomy tube but it was recommended that she first attempt to continue liquid protein and calorie supplementation such as Ensure in order to attempt to gain weight. The patient is agreeable with this. She will follow up with bariatric services as above and Surgery outpatient to determine the necessity for a feeding tube. The patient was noted to have some anemia throughout her stay. It is likely that this is a result of dilution as she was maintained on IV fluids throughout her stay. At discharge, she is stable and trending in the upward direction. She should have a repeat CBC and follow with her primary care provider. She also was noted to have transient leukopenia that again was also likely related to IV fluids. Again, a repeat CBC is recommended outpatient. Repeat magnesium blood draw, as well. At the time of discharge, the patient is eager to be discharged home. We had a long discussion about dietary intake and recommendations were made to eat soft to pureed foods and to increase liquid protein-calorie supplementation with Ensure or other similar products. Goal calorie intake is 1600 to 1800 calories daily. She will continue her pantoprazole and sucralfate until she follows up with Dr. Zimmer for her repeat EGD. Ms. Callaway is stable for discharge. REVIEW OF SYSTEMS: A 14-point review of systems has been performed and all the pertinent positives and negatives are in the HPI. Other systems are negative. PHYSICAL EXAMINATION: Temperature 98.5 oral, heart rate 99, respiratory rate 16 , oxygen saturation 100% on room air, blood pressure 92/64. General: Ms. Callaway is a pale, thin, chronically malnourished, ill-appearing middle-aged white woman who is lying in bed with head of bed elevated. She appears to be in no acute distress and appears comfortable. HEENT: PERRL. EOMI. Nonicteric sclerae. Hearing grossly intact. The patient is missing teeth. Oral mucous membranes are moist. There are no lesions. Cardiovascular: Regular rate and rhythm with S1, S2 present without murmurs, rubs, clicks, or gallops. There is no JVD. There is no peripheral edema. Pulmonary: Symmetrical chest expansion without use of accessory muscles. Lungs: Clear to auscultation bilaterally without rhonchi, wheezes, or rubs. Abdomen: Flat. Bowel sounds normoactive in all quadrants. The abdomen is soft. There is mild tenderness to palpation throughout. No appreciable hepatosplenomegaly. Musculoskeletal: Full range of motion without pain or deformities. Neuro: The patient is awake. She is alert and oriented x3 with cranial nerves grossly intact. She is able to move all of her extremities. She has a steady gait without impairment. DISCHARGE PLAN: Ms. Callaway will be discharged to home. CONDITION: Stable. DIET: 1. Soft to pureed foods. 2. Ensure or other liquid protein-calorie supplement. 3. Goal calorie 1600 to 1800 goal calories daily. DISCHARGE MEDICATIONS: 1. Continue Carafate, pantoprazole until outpatient EGD. 2. Continue Zofran as needed. 3. Add magnesium oxide 400 mg p.o. b.i.d. supplementation. 4. Continue Ensure. EDUCATION: 1. Log food eaten daily including amount, calories, symptoms and bring log to appointment visits. 2. Follow up with primary care provider in 4 to 7 days. 3. Follow up with Dr. Zimmer in approximately 2 weeks for repeat EGD. Office will call with appointment date and time. 4. Follow up with Surgery as needed. 5. Follow up with Bariatric Services at [facility]. 6. Return to the ER or nearest hospital if you experience any worsening of symptoms, chest pain or discomfort, shortness of breath, dizziness, lightheadedness, loss of consciousness, high fevers, chills, night sweats, or any other worrisome signs or symptoms. This is a summarized report of a complex medical history and hospital stay. For further details, please see the entire medical record. TIME SPENT: Approximately 40 minutes was spent on this discharge, greater than half of that time spent [id number] with the patient discussing discharge plans and instructions. KATHLEEN LEIJA [id number]/[facility] #: [id number]/[facility] #: [id number] ELISA
== END 2019-04-24 16:25 | disposition home or self-care (01) | DRG 380 ==
LOC: ED 15:42 → MED 04-16 02:52
PROVIDERS: ADMIT Internal Medicine; ATTEND Hospitalist
PROC: 0DJ08ZZ Inspection of Upper Intestinal Tract, Via Natural or Artificial Opening Endoscopic (ICD-10-PCS; principal; 2019-04-20)
PROC: 02HV33Z Insertion of Infusion Device into Superior Vena Cava, Percutaneous Approach (ICD-10-PCS; 2019-04-20)
PROC: 3E0436Z Introduction of Nutritional Substance into Central Vein, Percutaneous Approach (ICD-10-PCS; 2019-04-20)
DX: K28.9 Gastrojejunal ulcer, unspecified as acute or chronic, without hemorrhage or perforation (principal); E43 Unspecified severe protein-calorie malnutrition; K95.89 Other complications of other bariatric procedure; Z68.1 Body mass index [BMI] 19.9 or less, adult; K91.30 Postprocedural intestinal obstruction, unspecified as to partial versus complete; F31.9 Bipolar disorder, unspecified; F43.10 Post-traumatic stress disorder, unspecified; F17.210 Nicotine dependence, cigarettes, uncomplicated; E03.9 Hypothyroidism, unspecified; K21.9 Gastro-esophageal reflux disease without esophagitis; K58.9 Irritable bowel syndrome, unspecified; Y83.8 Other surgical procedures as the cause of abnormal reaction of the patient, or of later complication, without mention of misadventure at the time of the procedure; M19.90 Unspecified osteoarthritis, unspecified site; F41.0 Panic disorder [episodic paroxysmal anxiety]; D64.9 Anemia, unspecified; D72.819 Decreased white blood cell count, unspecified; Z86.718 Personal history of other venous thrombosis and embolism; Z98.84 Bariatric surgery status; Z90.710 Acquired absence of both cervix and uterus; Z90.49 Acquired absence of other specified parts of digestive tract; Z98.51 Tubal ligation status; Z88.1 Allergy status to other antibiotic agents; Z88.6 Allergy status to analgesic agent; Z88.8 Allergy status to other drugs, medicaments and biological substances; Z83.3 Family history of diabetes mellitus; Z23 Encounter for immunization; Y92.89 Other specified places as the place of occurrence of the external cause; Z79.01 Long term (current) use of anticoagulants
CPT/HCPCS: 36415; 74019; 74176; 74246; 80048; 80053; 80307; 81003; 81015; 82272; 82465; 82607; 83540; 83550; 83605; 83690; 83735; 83880; 84100; 84134; 84478; 85025; 85027; 85610; 86140; 87040; 87086; 90686; 93005; 96365; 99156; 99157; 99284; 99406; A9270-GY; C1751; J0696; J1650; J1885; J2060; J2250; J2270; J2405; J3010; J3475; J3480

== ENCOUNTER 2019-04-27 14:29 | Inpatient (IN) | payer MEDICARE ==
[2019-04-27] MEDS ORDERED: NS 0.9% 500 ML* 500 ML IV ONE (15:04)
[2019-04-27] MEDS ORDERED: Ondansetron INJ* 2 MG/ML VIAL IV ONE (15:04)
--- NOTE | 2019-04-27 15:09 | ED ---
Abdominal Pain/Female - HPI Summary HPI Summary: Pt is a 43 y/o F presenting to the ED for diffuse abdominal pain. Pt was previously seen at [facility] [place] and discharged on 04/24/19 for bowel obstruction. Pt began vomiting on 04/26/19 that she states she has had 20 episodes of vomiting since initial onset. Pt reports numbness in the bilateral legs, SOB, and nausea. Pt denies any fever, chills, erythema of eyes, sore throat, CP, cough, changes in bowel movements, dysuria, hematuria, myalgia, edema, rash, or dizziness. In room, her O2 saturation is 100%. Pt had a colonoscopy performed and told if she returned, she would need a G tube. Pt states she had a nervous breakdown two years ago. - History of Current Complaint Chief Complaint: EDAbdPain Stated Complaint: TROUBLE BREATHING PER PT Time Seen by Provider: 04/27/19 14:45 Hx Obtained From: Patient Onset/Duration: Sudden Onset, Lasting Days - Began 04/26/19, Still Present Timing: Days - Began 04/26/19 Severity Initially: Severe Severity Currently: Severe Pain Intensity: 10 Pain Scale Used: 0-10 Numeric Location: Diffuse Radiates: No Aggravating Factor(s): Nothing Alleviating Factor(s): Nothing Associated Signs and Symptoms: Positive: Nausea, Vomiting. Negative: Fever, Cough, Chest Pain, Dizzy, Urinary Symptoms - Negative dysuria or hematuria Allergies/Adverse Reactions: Allergies Allergy/AdvReac Type Severity Reaction Status Date / Time erythromycin base Allergy Swelling Verified 04/27/19 14:36 metoclopramide [From Reglan] Allergy Itching Verified 04/27/19 14:36 nitrofurantoin Allergy Swelling Verified 04/27/19 14:36 [From Macrobid] NSAIDS (Non-Steroidal Allergy Bleeding Verified 04/27/19 14:36 Anti-Inflamma terbutaline Allergy Unknown Verified 04/27/19 14:36 Reaction Details PMH/Surg Hx/FS Hx/Imm Hx Previously Healthy: Yes Endocrine/Hematology History: Reports: Hx Blood Transfusions, Hx Thyroid Disease - hypothyoidism, Hx Anemia Denies: Hx Anticoagulant Therapy, Hx Diabetes Cardiovascular History: Reports: Hx Cardiac Arrest - multiple times during surgery, Other Cardiovascular Problems/Disorders - 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 Denies: Hx Congestive Heart Failure, Hx Hypertension, Hx Pacemaker/ICD Respiratory History: Denies: Hx Asthma, Hx Chronic Obstructive Pulmonary Disease (COPD) GI History: Reports: Hx Gall Bladder Disease - REMOVAL, Hx Gastroesophageal Reflux Disease, Hx Irritable Bowel, Hx Obstructive Bowel, Other GI Disorders - SBOx2, incarcerated hernia, gastric bypass, jeronimo, appy, hysterectomy History: Reports: Hx Acute Renal Failure, Hx Renal Disease - ACUTE RENAL FAILURE 2018 Denies: Hx Dialysis, Hx Kidney Stones, Other Problems/Disorders Musculoskeletal History: Reports: Hx Arthritis, Other Musculoskeletal History - carpal tunnel Sensory History: Reports: Hx Contacts or Glasses Denies: Hx Hearing Aid Opthamlomology History: Reports: Hx Contacts or Glasses Neurological History: Reports: Hx Headaches Denies: Hx Dementia, Hx Seizures, Other Neuro Impairments/Disorders Psychiatric History: Reports: Hx Depression Denies: Hx Eating Disorder, Hx Panic Disorder, Hx of Violent Episodes Against Others, Hx Substance Abuse - Surgical History Surgical History: Yes Surgery Procedure, Year, and Place: APPENDIX A CHILD,GALLBLADDER 10 YRS AGO, GASTRIC BYPASS 11 YRS AGO,TUBAL 2006,PARTIAL HYSTERECTOMY 2006,2 HERNIA SURGERIES,9 INTESTINAL SURGERYS IN 2008 DONE AT [facility] DUE TO COMPLICATIONS OF GASTRIC BYPASS SURGERY. APPENDECTOMY & CHOLESECETOMY. Hx Anesthesia Reactions: No - Immunization History Date of Tetanus Vaccine: Unknown Date of Influenza Vaccine: last year Infectious Disease History: No Infectious Disease History: Reports: Hx of Known/Suspected MRSA - PER RECORDS, Hx Shingles, Hx Known/Suspected VRE Denies: Hx Hepatitis, Hx Human Immunodeficiency Virus (HIV), Traveled Outside the [place] in Last 30 Days - Family History Known Family History: Positive: Other - no history of depression Negative: Cardiac Disease, Hypertension, Diabetes - Social History Alcohol Use: None Hx Substance Use: No Substance Use Type: Reports: None Hx Tobacco Use: Yes Smoking Status (MU): Light Every Day Tobacco Smoker Have You Smoked in the Last Year: No Review of Systems Negative: Fever, Chills Negative: Erythema Negative: Sore Throat Negative: Chest Pain Positive: Shortness Of Breath. Negative: Cough Positive: Abdominal Pain - Diffuse, Vomiting, Nausea, Other - Negative changes in bowel movements Negative: dysuria, hematuria Negative: Myalgia, Edema Negative: Rash Neurological: Other - Negative dizziness Positive: Numbness - Bilateral legs All Other Systems Reviewed And Are Negative: Yes Physical Exam - Summary Physical Exam Summary: Constitutional: Well-developed, Well-nourished, Alert.(-) Distressed. Catechetic , poor dentition, hyperventilating. Skin: Warm, Dry HENT: Normocephalic; Atraumatic Eyes: Conjunctiva normal Neck: Musculoskeletal ROM normal neck. (-) JVD, (-) Stridor, (-) Tracheal deviation Cardio: Rhythm regular, rate normal, Heart sounds normal; Intact distal pulses; The pedal pulses are 2+ and symmetric. Radial pulses are 2+ and symmetric. (-) Murmur Pulmonary/Chest wall: Effort normal. (-) Respiratory distress, (-) Wheezes, (-) Rales Abd: Soft, (-) tenderness, (-) Distension, (-) Guarding, (-) Rebound Musculoskeletal: (-) Edema. States she has tenderness to all areas of palpation including the chest, back, and abdomen. No obvious trauma. Lymph: (-) Cervical adenopathy Neuro: Alert, Oriented x3 Psych: Mood and affect Normal Triage Information Reviewed: Yes Vital Signs On Initial Exam: Initial Vitals Temp Pulse Resp BP Pulse Ox 96.9 F 128 18 104/83 100 04/27/19 14:33 04/27/19 14:33 04/27/19 14:33 04/27/19 14:33 04/27/19 14:33 Vital Signs Reviewed: Yes Procedures - Sedation Patient Received Moderate/Deep Sedation with Procedure: No Diagnostics - Vital Signs Vital Signs Temp Pulse Resp BP Pulse Ox 04/27/19 14:33 96.9 F 128 18 104/83 100 - Laboratory Result Diagrams: 04/27/19 15:15 04/27/19 15:15 Lab Statement: Any lab studies that have been ordered have been reviewed, and results considered in the medical decision making process. - Radiology Chest X-ray Radiology Interpretation Completed By: Radiologist Summary of Radiographic Findings: Chest X-ray IMPRESSION: NO EVIDENCE FOR ACTIVE CARDIOPULMONARY DISEASE. Reviewed by ED physician. Abdomen X-ray Radiology Interpretation Completed By: Radiologist Summary of Radiographic Findings: Abdomen X-ray IMPRESSION: DILATED LOOPS OF GAS -FILLED BOWEL ARE SIMILAR IN APPEARANCE TO THE MOST RECENT. APRIL 19, 2019 ABDOMINAL RADIOGRAPH. Reviewed by ED physician. - EKG 14:49 Cardiac Rate: NL - 85 BPM EKG Rhythm: Sinus Rhythm ST Segment: Normal Ectopy: None Summary of EKG Findings: EKG at 14:49 shows 85 BPM with normal sinus rhythm, no STEMI. Reviewed and interpreted by ED physician. Abdominal Pain Fem Course/Dx - Course Course Of Treatment: Pt is a 43 y/o F presenting to the ED for diffuse abdominal pain. Pt was previously seen at [facility] [place] and discharged on 04/24/19 for bowel obstruction. Pt began vomiting on 04/26/19 that she states she has had 20 episodes of vomiting since initial onset. Pt reports numbness in the bilateral legs, SOB, and nausea. Pt denies any fever, chills, erythema of eyes, sore throat, CP, cough, changes in bowel movements, dysuria, hematuria, myalgia, edema, rash, or dizziness. In room, her O2 saturation is 100%. Pt had a colonoscopy performed and told if she returned, she would need a G tube. Pt states she had a nervous breakdown two years ago. On exam, pt is catechetic, poor dentition, hyperventilating. Pt states she has tenderness to all areas of palpation including the chest, back, and abdomen. No obvious trauma. In the ED course, pt was given ondansetron 4 mg IV, GI cocktail, lidocaine 2% 15 ml PO, acetaminophen 975 mg PO, and fluids. Laboratory abnormal findings: RBC 3.36, Hgb 11.2, Hct 32, MCH 33, RDW 19, BUN/Creatinine 34.4, total protein 6.2, albumin 3.0, albumin/globulin ratio 0.9. EKG at 14:49 shows 85 BPM with normal sinus rhythm, no STEMI. Chest X-ray IMPRESSION: NO EVIDENCE FOR ACTIVE CARDIOPULMONARY DISEASE. Abdomen X-ray IMPRESSION: DILATED LOOPS OF GAS-FILLED BOWEL ARE SIMILAR IN APPEARANCE TO THE MOST RECENT. APRIL 19, 2019 ABDOMINAL RADIOGRAPH. At 18:08, I spoke with Dr. Amanda who will admit the pt to [facility] [place] with a diagnosis of ileus. Pt will be admitted to [facility] [place] with a diagnosis of ileus. - Diagnoses Provider Diagnoses: Ileus - Provider Notifications Discussed Care Of Patient With: Kodak Amanda - At 18:08, I spoke with Dr. Amanda who will admit the pt to [facility] [place] with a diagnosis of ileus. Time Discussed With Above Provider: 18:08 Instructed by Provider To: Admit As Inpatient Discharge ED - Sign-Out/Discharge Documenting (check all that apply): Patient Departure - Admit - Discharge Plan Condition: Stable Disposition: ADMITTED TO [facility] - Attestation Statements Document Initiated by Scribe: Yes Documenting Scribe: Lisa Smart Provider For Whom Scribe is Documenting (Include Credential): Aaron Felder MD Scribe Attestation: Lisa Vital, scribed for Aaron Feledr MD on 04/27/19 at 1842. Status of Scribe Document: Ready
[2019-04-27 15:30] LABS: ABS Lymphocytes 1.5 10^3/ul (1.0-4.8); ABS Monocytes 0.4 10^3/ul (0-0.8); ABS Neutrophils 2.1 10^3/ul (1.5-7.7); Eosinophil % 0.3 %; Hematocrit 32 % (35-47); Hemoglobin 11.2 g/dL (12.0-16.0); Lymphocyte % 36.6 %; Mean Corpuscular HGB Conc 35 g/dL (31-36); Mean Corpuscular Hemoglobin 33 pg (27-31); Mean Corpuscular Volume 96 fL (80-97); Mean Platelet Volume 8.6 fL (7.4-10.4); Nucleated Red Blood Cells % 0.1; Platelet Count 319 10^3/uL (150-450); Red Blood Count 3.36 10^6 /uL (3.70-4.87); Red Cell Distribution Width 19 % (10-15); White Blood Count 4.1 10^3/uL (3.5-10.8)
[2019-04-27 15:46] LABS: Albumin/Globulin Ratio 0.9 (1-3); BUN/Creatinine Ratio 34.4 (8-20); Calcium 8.8 mg/dL (8.6-10.3); EGFR African American 130.1 (>60); EGFR Non-African American 107.6 (>60); Globulin 3.2 g/dL (2-4); Potassium 3.6 mmol/L (3.5-5.0); Total Bilirubin 0.6 mg/dL (0.2-1.0); Total Protein 6.2 g/dL (6.4-8.9)
[2019-04-27] MEDS ORDERED: Acetaminophen TAB* 325 MG PO ONE (16:06)
[2019-04-27] MEDS ORDERED: Al Hydrox/Mg Hydrox/Simet LIQ* 30 ML UDC PO ONE (16:06)
[2019-04-27] MEDS ORDERED: Lidocaine 2% VISCOUS* 15 ML UDC PO ONE (16:06)
[2019-04-27] MEDS ORDERED: Morphine 4 MG/ML VIAL (1 ml) 4 MG/ML VIAL IV PRN (18:10)
[2019-04-27] MEDS: Ondansetron INJ* 2 MG/ML VIAL IV PRN ×2 (18:27→23:34)
[2019-04-27] MEDS ORDERED: Enoxaparin(*) 60 MG/0.6 ML SYR SUBCUT SCH (20:00)
[2019-04-27] MEDS: Lactated Ringers 1000 ML Bag* 1,000 ML IV SCH (20:38)
--- NOTE | 2019-04-27 21:07 | HP ---
CC: Dr. Zac Adrian * MEDICINE HISTORY AND PHYSICAL: DATE OF ADMISSION: 04/27/19 PRIMARY CARE PROVIDER: Dr. Zac Adrian. ATTENDING PHYSICIAN: Dr. Kodak Amanda * (dictated by Roxy Bennett NP). CONSULTING PHYSICIANS: Dr. Willie Jaquez, Gastroenterology; Dr. Albaro Bennett , Surgery. CHIEF COMPLAINT: Abdominal pain. HISTORY OF PRESENT ILLNESS: Ms. Callaway is a 43-year-old female, recently admitted from 04/16/19 to 04/24/19 with concern for small bowel obstruction versus ileus and potential stricture of her Marizol-en-Y anastomosis site versus ulceration of the anastomosis site; now here today with concern for inability to tolerate p.o. fluids and intractable nausea and vomiting since discharge. She states that she met with Surgery on Saturday. She started on TPN and trial of clears. She was discharged with instructions to try Ensure and to follow up with the surgical team at the [facility]. She states on Saturday she started to feel full and reports "hearing air" in her stomach. She got small amounts of Ensure down and then vomited. She said she tried to get on 4 separate occasions but had difficulty tolerating the fluid. On Saturday morning, she reports feeling dizzy and nauseous. She thought her blood sugar was low, and she tried to drink Ensure again. This prompted her to start vomiting and dry heaving for approximately 40 minutes; she states that this continued throughout the rest of the day. She reports having difficulty lying flat, as it did hurt her chest and stomach to do so. She had a hard time breathing. She reports associated right leg numbness, and she was concerned that she had something more definitively wrong. Numbness is not currently present. She reported to the ER today for further evaluation. She was seen by GI during her previous admission and an EGD was done, which revealed concern for a stricture versus ulceration of her anastomosis site. There was also the concern of small bowel obstruction versus ileus. She was followed by both GI and Surgery and was to follow up with Dr. Zimmer in 2 weeks for a repeat EGD as an outpatient. She also had concerns for severe protein-calorie malnutrition, for which she was started on the Ensure. Here in the ER, she endorses persistent abdominal pain as well as generalized pain, neck pain, chest pain, shortness of breath, some of which is reproducible. She is very anxious and reports a history of anxiety and PTSD. She reports 10/10 pain at this time and persistent nausea. A repeat KUB done in the ER shows concern for dilated loops of gas-filled bowel, which are similar in appearance to the most recent KUB, which was performed on 04/19/19. She also had a chest x-ray, which showed no evidence for acute cardiopulmonary disease and a troponin was checked, which was 0. PAST MEDICAL HISTORY: Includes: 1. Bipolar disorder. 2. PTSD. 3. Maulik's thyroiditis. 4. GI bleeding by report. 5. History of provoked right lower extremity DVT, on Eliquis. 6. 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 PAST SURGICAL HISTORY: 1. SMA repair. 2. Gastric bypass surgery. 3. Appendectomy. 4. Hysterectomy. 5. Tubal ligation. 6. Cholecystectomy. 7. Hernia repairs. HOME MEDICATIONS: 1. Levothyroxine 25 mcg daily. 2. Gabapentin 300 mg t.i.d. 3. Docusate 100 mg b.i.d. 4. Quetiapine 100 mg b.i.d. 5. Dicyclomine 10 mg t.i.d. p.r.n. 6. Bupropion XL 300 mg daily. 7. Apixaban 5 mg b.i.d. 8. Hydroxyzine 50 mg q.8 hours p.r.n. 9. Sucralfate 1 g p.o. 4 times daily. 10. Amitiza 24 mcg b.i.d. 11. Pantoprazole 40 mg daily. ALLERGIES: Include ERYTHROMYCIN, METOCLOPRAMIDE, NITROFURANTOIN, NSAIDs, and TERBUTALINE. FAMILY HISTORY: Significant for mother with tachycardia and father with diabetes. SOCIAL HISTORY: She reports some day but not every day smoker, perhaps 2 to 3 cigarettes a day. She reports no alcohol use in 2-1/2 years. Denies any illicit drug use. Her father is her emergency contact, Cassius Hollingsworth, in the event of emergency. REVIEW OF SYSTEMS: A 14-point review of systems was completed. All pertinent positives and negatives as per HPI. Please also note that she does endorse a 70 - pound weight loss over the last 3 to 4 months, dropping her weight from 180s to 110s. She previously reported chest pain to the ER physician, but denies this currently. She reports shortness of breath, but no cough or hemoptysis. She reports abdominal pain and nausea, vomiting as of yesterday. Denies diarrhea or constipation currently. She denies dysuria or hematuria. She does report numbness in the bilateral legs, but denies any focal weakness or difficulty with speech. She denies any new visual or hearing complaints. She denies dysphagia. Denies rashes or lesions. Does report all over joint pain. Endorses a history of anxiety, bipolar disorder, PTSD. PHYSICAL EXAMINATION GENERAL: This is a 43-year-old female, well developed, lying in the ED stretcher, in no acute distress. She is conversive and polite. VITAL SIGNS: Temperature 98.6, heart rate 84, respiratory rate 18, blood pressure 97/68, and O2 saturation 99% on room air. HEENT: Head is atraumatic, normocephalic. Face is symmetrical. Pupils are equal, round, and reactive to light and accommodation. Extraocular movements are intact. Sclerae are anicteric. Oral mucosa is moist. NECK: Supple with full range of motion. There is pain with palpation along the right sternocleidomastoid muscle that is exacerbated with external and internal rotation. CARDIAC: There is pain to the chest with palpation. Heart sounds are normal with normal S1, S2 heart sounds. Regular rate and rhythm. No murmurs appreciated. No peripheral edema noted. Distal pulses to the radial, dorsalis pedis, and posterior tibialis are all intact and symmetrical. ABDOMEN: Soft. It is diffusely tender. There is no distention, no guarding, no rebound tenderness. Bowel sounds are hypoactive. MUSCULOSKELETAL: There is active range of motion in all 4 extremities. NEURO: No focal deficits. Sensation is intact to light touch. PSYCH: She is alert and oriented x3. She has good eye contact. Thought content is logical. She is anxious. SKIN: Warm and dry. DIAGNOSTIC STUDIES/LAB DATA: CBC: WBC 4.1, hemoglobin 11.2, hematocrit 32, platelet count 319,000. CMP: Sodium 137, potassium 3.6, chloride 107, carbon dioxide 22, BUN 21, creatinine 0.61, glucose 82, lactic acid 1.2, calcium 8.8. Total bilirubin 0.6, AST 22, ALT 24, alk phos 56. Troponin 0.00. Albumin 3.0. Imaging as per above. ASSESSMENT AND PLAN: This is a 43-year-old female, who presents to the ER today with concern for intractable nausea, vomiting and persistent abdominal pain likely secondary to ileus versus small bowel obstruction and with concern for anastomotic stricture versus ulceration. She will be admitted as an inpatient. Plan is as follows: 1. Intractable vomiting secondary to ileus versus small bowel obstruction. She does have a history of Marizol-en-Y surgery in 1998 with recurrent small bowel obstructions with lysis of adhesions and multiple abdominal surgeries. With her Marizol-en-Y history, NG tube is not advisable, and we will continue to keep her n.p.o. and provide her with antiemetics and p.r.n. analgesia. Appreciate surgical consult. They will continue to follow with her. 2. Question of surgical anastomosis site with ulceration versus stricture. I reviewed the case with Dr. Willie Jaquez, who will see the patient in consultation. Ms. Callaway was to follow up with Dr. Zimmer as an outpatient for a repeat EGD to discuss the possibility of dilatation versus a PEG tube. This will need follow up, as she does show concerns for protein-calorie malnutrition and inability to tolerate p.o. intake with rapid weight loss. 3. History of deep venous thrombosis, was on Eliquis. I am unsure as to what surgical plans would be, and she is also not tolerating p.o. at all and so, we will hold her Eliquis and cover her with subcu Lovenox b.i.d. and restart her on her Eliquis when able. 4. History of gastrointestinal bleeding. Continue Protonix. Resume Carafate when able. 5. History of posttraumatic stress disorder, bipolar disorder, anxiety. I would recommend resuming all home medications as soon as possible, perhaps tomorrow once she is able to have some bowel rest and better control of her nausea and vomiting. 6. Hypothyroidism. Continue levothyroxine when possible. 7. FEN: Currently n.p.o. I will put in a nutrition consult for consideration of TPN or other nutritional options. Again, she may require a PEG tube. 8. DVT prophylaxis: As per above, she will be on subcu Lovenox b.i.d. 9. Code status: She is a full code. TIME SPENT: Approximately 70 minutes were spent on this admission with more than half that time spent [id number] with the patient obtaining history and physical, performing physical examination, and reviewing the plan of care. Plan of care was also reviewed with my attending, Dr. Kodak Amanda, who is in agreement. ROXY BENNETT NP [id number]/CPS #: [id number] ELISA
[2019-04-27] MEDS: PROCHLORPERAZINE INJ 5 MG/ML 2 ML VIAL IV PRN (22:11)
[2019-04-27] MEDS: Morphine INJ* 4 MG/ML 1 ML SYRINGE (NEW SYRINGE VERSION) IV PRN (22:12)
[2019-04-27] MEDS: Enoxaparin(*) 60 MG/0.6 ML SYR SUBCUT SCH (23:02)
[2019-04-28] MEDS: Morphine INJ* 4 MG/ML 1 ML SYRINGE (NEW SYRINGE VERSION) IV PRN ×4 (01:49→12:33)
[2019-04-28] MEDS: PROCHLORPERAZINE INJ 5 MG/ML 2 ML VIAL IV PRN ×2 (05:27→12:33)
[2019-04-28 06:02] LABS: ABS Lymphocytes 1.3 10^3/ul (1.0-4.8); ABS Monocytes 0.4 10^3/ul (0-0.8); ABS Neutrophils 1.9 10^3/ul (1.5-7.7); Eosinophil % 0.9 %; Hematocrit 31 % (35-47); Hemoglobin 10.5 g/dL (12.0-16.0); Mean Corpuscular HGB Conc 34 g/dL (31-36); Mean Corpuscular Hemoglobin 33 pg (27-31); Mean Corpuscular Volume 99 fL (80-97); Mean Platelet Volume 8.1 fL (7.4-10.4); Nucleated Red Blood Cells % 0.2; Platelet Count 206 10^3/uL (150-450); Red Blood Count 3.16 10^6 /uL (3.70-4.87); Red Cell Distribution Width 20 % (10-15); White Blood Count 3.6 10^3/uL (3.5-10.8)
[2019-04-28 06:23] LABS: BUN/Creatinine Ratio 30.5 (8-20); EGFR African American 135.3 (>60); EGFR Non-African American 111.8 (>60); Potassium 3.7 mmol/L (3.5-5.0)
[2019-04-28] MEDS: Lactated Ringers 1000 ML Bag* 1,000 ML IV SCH ×2 (08:51→16:05)
[2019-04-28] MEDS: Enoxaparin(*) 60 MG/0.6 ML SYR SUBCUT SCH ×2 (08:52→19:57)
[2019-04-28] MEDS: Ondansetron INJ* 2 MG/ML VIAL IV PRN (08:54)
[2019-04-28] MEDS: Pantoprazole IV* 40 MG IV SCH (08:54)
--- NOTE | 2019-04-28 12:03 | PN ---
Progress Note - Progress Note Date of Service: 04/28/19 Note: Surgery Consult Brief Note (full note dictated) S: patient known to us from admission last week, readmitted last pm with abd pain and vomiting O: abd: +BS; flat, nondistended, though tympanitic over epigastrium. Soft, tender throughout abd, maybe somewhat worse over lower abd. Tender over both flanks as well. Mult surgical changes. No palp masses. No guarding/rebound. AXR: dilated bowel in upper abd (jejunum? 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 Stanley. At this point will await further GI eval and repeat scope with attempt to identify j-j anastomosis and dilate, if indicated. Will continue to follow. Discussed w/ M RITU Haley.
--- NOTE | 2019-04-28 12:33 | CONS ---
CC: Dr. Zac Adrian, [facility]; Dr. Carlitos Zimmer; [facility] * CONSULTATION REPORT: DATE OF CONSULT: 04/28/19 CHIEF COMPLAINT: Abdominal pain, nausea with poor oral intake. HISTORY OF PRESENT ILLNESS: Ms. Jannette Callaway is a 43-year-old woman with a very complicated surgical history. Apparently, initially she underwent an open gastric bypass at [facility] in 2001 for morbid obesity. Since that time, she has had multiple surgical procedures including exploratory laparotomy with lysis of adhesions for recurrent bowel obstructions, laparoscopic cholecystectomy for biliary disease. Review of the records from [facility] shows that in 2008 she was diagnosed with superior mesenteric artery syndrome and underwent an open duodenojejunostomy. This appears to be done with loop of jejunum. During this time frame, she apparently was having persistent and chronic abdominal pain with poor oral intake, and subsequent to this, within the next year, underwent revision of her duodenojejunostomy, which was felt to have been strictured. This was revised by performing a loop gastrojejunostomy and a pyloroplasty. Gastrostomy tube was inserted temporarily at that time as well. At one of her open laparotomies, there was concern that there may have been a stenosis at the jejunojejunostomy and this has been revised as well. Review of visits to the emergency room reveals chronic abdominal pain here as well as [facility]. She was in [place] in March of this year and underwent an incomplete colonoscopy due to poor bowel prep. I do not see where an EGD was done however it appears that she has had an EGD a little over one year ago at [place] that was unremarkable. She was admitted here last week to the medical service with similar complaints and found to be profoundly malnourished. A CAT scan had shown dilated gastric remnant. Dr. Zimmer performed an upper endoscopy, which was somewhat inconclusive and he was not able to pass the endoscope clearly through the gastrojejunostomy, but no significant ulceration was noted. In addition, she underwent an upper GI, which showed rapid flow of contrast through the gastrojejunostomy with no evidence of obstruction in the Marizol limb or at the gastrojejunostomy with subsequent documented contrast flowing freely into a nondistended colon. She was discharged home tolerating oral Ensure and was also seen in a nutritional consult. Apparently over the past several days she has had difficulty taking any oral intake with persistent nausea without vomiting. She has complained of lower abdominal discomfort. She presented back to the emergency room last night and abdominal film showed once again some dilated bowel in the upper abdomen and she was admitted to the surgical service. PAST MEDICAL HISTORY: 1. Bipolar disorder. 2. PTSD with depression. 3. Maulik thyroiditis. 4. History of right lower extremity DVT, on anticoagulation. 5. Multiple abdominal surgeries. 6. Morbid obesity with subsequent weight loss as performed above. PAST SURGICAL HISTORY: 1. Open gastric bypass with revision of the jejunostomy at a subsequent procedure. 2. Appendectomy as a teenager. 3. Hysterectomy with oophorectomy. 4. Tubal ligation. 5. Laparoscopic cholecystectomy. 6. Multiple exploratory laparotomies with lysis of adhesions and abdominal wall hernia repair. 7. Duodenojejunostomy with revision to a gastrojejunostomy for apparent stricture at the initial anastomosis. 8. Multiple open G-tube placements. MEDICATIONS: Include: 1. Levothyroxine. 2. Gabapentin. 3. Docusate. 4. Quetiapine. 5. Dicyclomine. 6. Bupropion. 7. Apixaban. 8. Sucralfate. 9. Amitiza. 10. Pantoprazole. ALLERGIES: She is allergic to ERYTHROMYCIN, METOCLOPRAMIDE, NITROFURANTOIN, NONSTEROIDS, and TERBUTALINE. SOCIAL HISTORY: She reports that she is an everyday smoker. She has no alcohol use in the last 2-1/2 years. She denies use of illicit drug abuse, but she stated she has been using as required narcotics over the years for her chronic abdominal pain. Presently lives in [place] with her father. REVIEW OF SYSTEMS: A 14-point review of systems was completed. All pertinent positives and negative as per the history and physical. She does state she has had a 70-pound weight loss over the past 3 to 4 months and this has been documented in the records. She has some shortness of breath, but chest x-ray was unremarkable. She had no hemoptysis or fever. PHYSICAL EXAM: Temperature 98.5, pulse 74, blood pressure 99/60. General: She is a well-developed, slender female, sitting upright in bed. Appears to be in no apparent distress. Lungs: Clear to auscultation with normal respiratory effort. Heart was regular rate and rhythm without murmurs, rubs, or gallops. Her abdomen is soft and nondistended. She has multiple well-healed midline surgical incisions with a probable ventral incisional hernia superiorly, which is easily reducible. There is some palpable subcutaneous suture knots without skin erosion. She has lower transverse incision without hernia. She had normoactive bowel sounds throughout. There is no distention. She has some mild tenderness in the lower abdomen but is quite soft without rebound, guarding , or peritoneal irritation. DIAGNOSTIC STUDIES/LAB DATA: Laboratory values include a white blood cell count of 3.6 with a hemoglobin of 10.5. She has an MCV of 99. Platelet count 206, 000. BUN and creatinine were within normal limits. She had an albumin of 3.0 with total protein of 6.2. Abdominal films reviewed and as per above. IMPRESSION: Chronic abdominal discomfort with nausea, vomiting, poor oral intake, weight loss over the past several months and associated with a complicated bariatric surgical history as well as subsequent laparotomies with lysis of adhesions and hernia repairs. She has also undergone a duodenojejunostomy with revision to a gastrojejunostomy with pyloroplasty for apparent superior mesenteric artery syndrome. She has had her jejuno- jejunostomy revised once as well. All of these surgeries have been done at [facility] and the above is per review of the old records. On her upper gastrointestinal last week, she showed no evidence of obstruction at the gastrojejunostomy and there was no evidence of Marizol limb or jejunostomy obstruction with rapid flow of contrast into the colon. She, however, does have distended remnant stomach and several loops of small bowel in the epigastric and right upper quadrant area on the plain x-rays as well as the CT scan and this appears to be most likely secondary to distention of the previous gastrojejunostomy revision and duodenojejunostomy. Discussion at the last admission was placement of an open gastrostomy tube for decompression of the gastric remnant and possible feeding. However, due to her complicated surgical history as well as social issues, this was deferred as she was tolerating adequate oral intake and she was scheduled for followup in the bariatric office. For now, we will continue with the IV fluids and oral intake is continued. GI has been consulted once again. I will discuss her care with the bariatric surgeons here; however, there is no clear optimal surgical procedure that will benefit her. Only consideration at this point would be an open gastrostomy tube for stomach decompression as well as performing contrast studies; however, this itself would most likely be a quite challenging procedure. Thank you for the consultation. We will follow her closely with you. [id number] #: [id number] ELISA
[2019-04-28] MEDS ORDERED: NS 0.9% 1000 ML** 1,000 ML IV ONE (17:33)
--- NOTE | 2019-04-28 19:59 | PN ---
Subjective Date of Service: 04/28/19 Interval History: Patient reports that she continues to have abd pain. States that she vomited 20 times over the weekend. Denies fever or chills. denies chest pain or shortness of breath. currently denies vomiting, but does report mild nausea. Spoke to GI dr. Jaquez who will see the patient in consult this evening- will hold dose of Lovenox this evening. for endoscopy in the AM and possible dilation. Spoke to Tarun Pitt from surgery - plan to have GI evaluate the patient and then proceed based on there recommendations. called by nursing for SBP in the 80's- IVF increased to 150cc/hr. Updated again after 1 hour SBP remains in the 80's. Patient given 1 liter Normal saline bolus. updated after bolus no improvement of SBP , IV morphine decreased to 2 mg. 1929 Family History: Unchanged from Admission Social History: Unchanged from Admission Past Medical History: Unchanged from Admission Objective Active Medications: Diphenhydramine HCl (Benadryl Iv*) 12.5 mg IV Q8H PRN PRN Reason: ITCHING Enoxaparin Sodium (Lovenox(*)) 60 mg SUBCUT Q12H [facility] Last Admin: 04/28/19 08:52 Dose: 60 mg Lactated Ringer's (Lactated Ringers 1000 Ml Bag*) 1,000 mls @ 150 mls/hr IV PER RATE [facility] Last Admin: 04/28/19 16:05 Dose: 150 mls/hr Morphine Sulfate (Morphine Inj (Syringe))*) 2 mg IV Q3H PRN PRN Reason: PAIN - MODERATE Ondansetron HCl (Zofran Inj*) 4 mg IV Q6H PRN PRN Reason: NAUSEA Last Admin: 04/28/19 08:54 Dose: 4 mg Pantoprazole Sodium (Protonix Iv*) 40 mg IV DAILY [facility] Last Admin: 04/28/19 08:54 Dose: 40 mg Prochlorperazine Edisylate (Compazine Inj*) 5 mg IV Q6H PRN PRN Reason: NAUSEA/VOMITING Last Admin: 04/28/19 12:33 Dose: 5 mg Vital Signs - 8 hr 04/28/19 04/28/19 04/28/19 12:33 13:33 15:48 Temperature 97.8 F Pulse Rate 61 Respiratory 19 17 18 Rate Blood Pressure 82/58 (mmHg) O2 Sat by Pulse 100 Oximetry 04/28/19 04/28/19 04/28/19 17:10 18:15 19:31 Temperature 97.2 F Pulse Rate 74 Respiratory 16 Rate Blood Pressure 82/52 80/54 80/52 (mmHg) O2 Sat by Pulse 100 Oximetry Oxygen Devices in Use Now: None Appearance: pale, resting in bed , no acute distress Eyes: No Scleral Icterus Ears/Nose/Mouth/Throat: Clear Oropharnyx, Mucous Membranes Moist Neck: NL Appearance and Movements; NL JVP, Trachea Midline Respiratory: Symmetrical Chest Expansion and Respiratory Effort, Clear to Auscultation Cardiovascular: NL Sounds; No Murmurs; No JVD, No Edema Abdominal: - - normal sounds, tenderness with palpation to RLQ, and LUQ, BS active, abd soft Extremities: No Edema, No Clubbing, Cyanosis Skin: No Rash or Ulcers, No Nodules or Sclerosis Neurological: Alert and Oriented x 3 Nutrition: Taking PO's - Nutrition: Malnutrition Diagnosis/Plan Malnutrition Assessment by Registered Dietitian: Malnutrition Assessment Clinical Characteristics Chronic,Severe Malnutrition Assessment: - visible and severe clavicular muscle wasting Criteria - meeting <75% nutrient needs x >1 mo (severe) - unintentional wt loss x 4 mos (current wt 120lb, UBW 170lb x4 months ago = 29.4% loss/4 mos) Malnutrition Assessment: - will follow labs/electrolytes/BG during NPO Interventions status - if nutrition support initiated, follow for s/ sx refeeding syndrome - if po diet ordered, start w/small amounts full liquid-type textures and liquid supplements - follow GI consult and any plans for surgical intervention Malnutrition Assessment: Goals 1. pt will remain NPO per provider order 2. RDN suggests initiation of PPN base A and monitoring for s/sx refeeding syndrome 3. maintain fluid/electrolyte balance without clinical s/sx dehydration 4. bowel regularity w/o development of diarrhea / constipation Result Diagrams: 04/28/19 05:40 04/28/19 05:40 Microbiology and Other Data: Microbiology 04/28/19 00:15 Nasal Screen MRSA (PCR) - Final Nasal Mrsa Not Detected Assess/Plan/Problems-Billing Assessment: Ms. Callaway is a 43 y.o presented to the ER with abd pain, N/V unable to tolerate po food or fluids. Patient was recently admitted from 04/16-04/24 for Ulcer at stomach anastomosis, Possible stricture at anastomosis, Small bowel obstruction versus ileus, Severe protein-calorie malnutrition. - Patient Problems (1) Abdominal pain Current Visit: No Status: Acute Code(s): R10.9 - UNSPECIFIED ABDOMINAL PAIN SNOMED Code(s): 51802492 Comment: - Ulceration at anastomosis plus possible SBO vs ileus - Multiple SBO in the recent past, all treated at [facility] - x ray shows - dilated loops of bowel - Appreciate Surgery consult: pending further recommendations from GI - [facility] consult: pending - possible upper EDG in the AM - NPO after MN - will consider TPN- if patient continues to be unable to tolerate fluids - Continue IVF, Zofran, morphine (2) Anemia Current Visit: No Status: Acute Code(s): D64.9 - ANEMIA, UNSPECIFIED SNOMED Code(s): 043627881 Comment: -H/h stable -Continue with PPI -Continue to monitor (3) Bipolar disorder Current Visit: No Status: Acute Code(s): F31.9 - BIPOLAR DISORDER, UNSPECIFIED SNOMED Code(s): 01032839 Comment: - will monitor as patient is currently unable to tolerate po medications - will need to resume home medications as soon as possible (4) Chronic malnutrition Current Visit: No Status: Acute Code(s): E46 - UNSPECIFIED PROTEIN-CALORIE MALNUTRITION SNOMED Code(s): 6963494 Comment: - Chronic, severe - NPO after MN - if no stricture dialation and the patient is not tolerating fluids- will need to consider restarting TPN (5) History of DVT (deep vein thrombosis) Current Visit: No Status: Acute Code(s): Z86.718 - PERSONAL HISTORY OF OTHER VENOUS THROMBOSIS AND EMBOLISM SNOMED Code(s): 177465504 Comment: -Pt with h/o DVT August 2018, on Eliquis -This occurred during hospitalization at [facility], therefore likely provoked -Eliquis held by surgery/GI for EGD and other interventions -will hold lovenox d/t procedure in AM and possible dilation in the AM (6) Hypothyroidism Current Visit: No Status: Acute Code(s): E03.9 - HYPOTHYROIDISM, UNSPECIFIED SNOMED Code(s): 74371509 Comment: - will change levothroxine to IV while NPO (7) DVT prophylaxis Current Visit: No Status: Acute Code(s): Z29.9 - ENCOUNTER FOR PROPHYLACTIC MEASURES, UNSPECIFIED SNOMED Code(s): 465172451 Comment: lovenox - on hold for procedure in the AM - SCDs (8) Full code status Current Visit: No Status: Acute Code(s): Z78.9 - OTHER SPECIFIED HEALTH STATUS SNOMED Code(s): 696605677 Comment: Status and Disposition: inpatient
--- NOTE | 2019-04-28 21:09 | CONS ---
GASTROENTEROLOGY CONSULT: DATE OF CONSULT: 04/28/19 CONSULTING PHYSICIAN: Zac Adrian Hampton hCa Garcia MD. REASON FOR CONSULT: Reported nausea and vomiting in a woman with a complex surgical history after gastric bypass in 2001. HISTORY: This 43-year-old woman was recently at [facility] for 8 days with nutritional problems felt related to numerous previous surgeries (all at [facility] starting with open bariatric bypass in 2001 - see Dr Lyman's consult today) and was sent home on 04/24 on a soft diet. During the stay Dr Jackie Mcintosh saw her in consult though information was limited . A history of a gastric ulcer bleed was obtained and she requested recent [facility] records and pointed out the patient was not on a PPI. Upper endoscopy by Dr Zimmer on 04/20 had not clearly gotten through her gastrojejunal anastamosis and there was friability limiting the exam though a barium study readily reached the colon showning she was not obstructed. She had been able to eat. Surgery consulted and she was discharged.. She returned to the ER on 04/27/19 reporting that she was vomiting incessantly or upwards of 20 times over the preceding 24 to 36 hours after having been discharged from [facility] on 04/24/19 newly on PPI BID. During the previous 8 day trying to evaluate recurrent vomiting dilated loops of upper bowel beyond the stomach raised a question of other strictures beyond her gastrojejunostomy in other high gastrointestinal anastomoses. Her past surgical history is well outlined in Dr. Lyman's consult from today. A GI consult was requested again. In the ER full dose Lovenox was started (to replace Eliquis) and was given this morning. During the hospital stay last week, she was on peripheral nutrition and her albumin suzanne from 1.6 on 04/19/19 (3 days after admission) to 3.0 now. It is of interest that outside records from [facility] (117 page file entry) do contain serial labs going back 20 years in the [facility] system documenting albumins in the 1s several times over the last several years. Today, since admission, the nurses on the floor observe that she has been in a room preferring to lie in bed with the lights out. She has not had any vomiting or any stool. She has been requesting pain medication. She has had no visitors. She states that during an admission to [facility] in March 2019, there were signs of bleeding and she was in the intensive care unit. She said that gastroscopy was done, though she does not know the result. She said colonoscopy was done and it was only partially; she was not fully cleaned out. The 117 page [facility] records do not include a GI Blooed admission or evaluation. They start with the most recent admission history and physical and discharge summary from 04/10/19 and 04/11/19 and make no mention of this admission. That admission is however, referred to in a psychiatric consult beginning at page 66 and extending for 10 pages and then limited colonoscopies are included in the last 4 pages of that record file transfer. PAST MEDICAL HISTORY: 1. Morbid obesity - BMI 63, weight 389 at the time of her bypass in 2001 (in the 117 page fax). 2. Bipolar disorder - multiple admissions to psychiatry 3. DVT - September 2018 - first clot. She stays on Eliquis since then. She denies any history of bleeding other than the . 4. Malnutrition. 5. Hypothyroidism - on replacement. 6. PTSD. 7. History of cholecystectomy. 8. History of multiple surgical revisions - at [facility] and please see Dr. Lyman's surgical consult from today. MEDICATIONS: She was sent home 3 days ago to take: 1. Apixaban 5 mg twice a day. 2. Bupropion 300 mg. 3. Gabapentin 300 t.i.d. 4. Quetiapine 100 b.i.d. 5. Dicyclomine 10 t.i.d. p.r.n. 6. Docusate p.r.n. 7. Levothyroxine 25 mcg. 8. Pantoprazole 40 mg twice a day. 9. Sucralfate 1 g 4 times a day. It is unclear if she has these available. SOCIAL HISTORY: She has been apart from her in the last 2-1/2 years, having been together for 6 years. She moved back in with her parents. Her mother 2 years ago of COPD. She lost custody of her children ages now 19, 15, and 12. The 19-year-old has a 2-year-old grandchild. She states she has been at the [facility] unit 8 times in the last year. Psychiatry consult from a month ago is in the file transfer, pages 66 to 77. REVIEW OF SYSTEMS: On the history seen here no syncope, seizure, CVA, TIA, heart disease, palpitations, NC. There is a note that she was PPD positive and took INH for 6 months over 20 years ago. No history of hepatitis, jaundice, colon polyps. She reportedly has a family history of colon cancer. Her colonoscopy a month ago extended to the mid transverse. The indication for that exam at this time was not clear. PHYSICAL EXAM: She is a chronically ill-appearing woman, edentulous, lying in bed with the lights out. She is afebrile. Blood pressure is 82/58, although she appears comfortable. Skin is warm and dry. Pulse is 68. HEENT exam shows no icterus. She is pale. She has no adenopathy. Breath sounds are intact bilaterally. Heart sounds are regular. The abdomen shows multiple scars. It is relatively flat and actually not distended at all. Bowel sounds are normal and there are no mechanical sounds. She has some guarding to palpation, but there does not appear to be any tenderness per se. Rectal deferred. The abdominal exam is really quite benign. Extremities show no edema. There is a PICC line in the left upper arm. DIAGNOSTIC STUDIES/LAB DATA: Imaging review - upper abdominal distended loops of bowel appear similar across a number of 2019 studies. UGI study last admission shows barium progressing through the colon, which is not distended. There are little bits of barium in the gastric pouch. The gastric pouch does not appear particularly distended. There was an area on CT that appears to be an anastomosis. Gastroscopy review - photos from the 04/20 exam do show a dark area where folds coalesce. There was no active bleeding. Labs - most recently today hemoglobin 10.5, hematocrit 31, MCV 99, platelets 206 ,000. INR 1.12 (8 days ago). Chemistries show sodium 137, potassium 3.7, calcium 8.0, and albumin 3.0, LFTs normal with bilirubin 0.6. Magnesium was 1.7 , 4 days ago. IMPRESSION: This 43-year-old woman presented saying she was unable to eat and had incessant nausea and vomiting. Her gastrointestinal tract has had numerous procedures and has a number of anastomoses. Imaging is not normal, but does not definitively show a focal area of obstruction. There is an area of probable ileus or impaired motility of probable upper jejunal loops though distension does not include the gastric pouch so narrowing of the GJ anastamosis is not likely causing significant obstruction there. There are no areas of tenderness on exam and no hyperactive bowel sounds. There may be an anatomic basis for some of her inability to eat or process high fiber foods and thus for having abdominal symptoms with eating. Another attempt at upper endoscopy to identify an anastomosis and demonstrate its patency could be helpful in her evaluation and appears warranted when she is not anticoagulated. There are however dilated loops below the anastamosis. Her anatomy may not predict a total inability to eat a low roughage diet and the report of incessant nausea and vomiting requiring readmission on an obstructive basis is not confirmed by my current review of the situation. One has to keep open to the fact that much of her intractable symptoms and nutritional deterioration may be on a psychiatric basis. Family input could be helpful. She had a psychiatry consult here in July 2013 (and within the last month at [facility]) - an update is suggested. [id number] #: [id number] ELISA
[2019-04-29] MEDS: Lactated Ringers 1000 ML Bag* 1,000 ML IV SCH ×2 (03:40→11:34)
[2019-04-29] MEDS: Pantoprazole IV* 40 MG IV SCH (07:49)
[2019-04-29] MEDS: PROCHLORPERAZINE INJ 5 MG/ML 2 ML VIAL IV PRN (07:49)
[2019-04-29] MEDS: Morphine INJ* 2 MG/ML 1 ML SYRINGE (TWO MG - NEW SYRINGE VERSION) IV PRN ×2 (08:12→12:50)
--- NOTE | 2019-04-29 12:12 | PN ---
Progress Note - Progress Note Date of Service: 04/29/19 SOAP: Subjective: Pt resting comfortably in hospital bed in NAD. Denies nausea, vomit , Flatus or BM [] Objective: Vital Signs Temp 98.0 F 04/29/19 10:55 Pulse 86 04/29/19 10:55 Resp 17 04/29/19 10:55 BP 108/65 04/29/19 10:55 Pulse Ox 100 04/29/19 10:55 Intake & Output 04/28/19 04/29/19 04/29/19 18:59 06:59 18:59 Intake Total 0 3886 538 Balance 0 3886 538 Intake: IV Fluids 3886 538 LR 886 538 NS 3000 Oral 0 0 Other: Estimated Void Medium # Bowel Movements 0 # Voids 1 PEX:[] Chest: CTA B/L CVS: RRR ABD: ND/NT, soft, no guarding, no rebound EXT: Calves soft B/L non tender Assessment: 43 yo female with distant history of gastric bypass surgery with multiple subsequent surgeries, a recent hx of marked weight loss, intractable vomiting, failure to thrive. [] Plan: Await GI EGD to evaluate for any mechanical causation for current presentation, possible anastomotic strictures. Above D/W Dr Stanley and Dr Lyman []
[2019-04-29] MEDS: Ondansetron INJ* 2 MG/ML VIAL IV PRN (12:50)
[2019-04-29] MEDS ORDERED: Midazolam* 1 MG/ML 10 ML VIAL (10 MG) ONE (14:47)
[2019-04-29] MEDS ORDERED: fentaNYL* 50 MCG/ML 2 ML VIAL (100 MCG VIAL) ONE (14:47)
--- NOTE | 2019-04-29 16:31 | PN ---
Progress Note - Progress Note Date of Service: 04/29/19 Note: BRIEF GI NOTE (POST-PROCEDURE) EGD demonstrated: E: normal G/J: Normal gastric pouch (3-4 cm). GJ anastomosis is very narrowed and friable. Clean-based ulcer seen on jejunal side, although this ulcer was incompletely visualized as I was unable to advance scope through the anastomosis. Therefore, I am unable to estimate size or complexity of this ulcer. Reviewed findings during the endoscopic exam with Dr Lyman. Patient has strictured and ulcerated GJ anastomosis. Almost certainly contributing to her symptoms. - Symptomatic control per primary team - Recommend switching to Nexium 40 mg twice daily capsules -- opened into small amount of applesauce OR powdered form of PPI depending on hospital formulary. This can result in improved ulcer healing as opposed to tablets. - Recommend Carafate QID as able. If this causes nausea/vomiting or patient intolerant, then ok to discontinue. - Would plan for patient to be largely NPO except for sips or meds. If symptoms begin to improve, then can liberalize to clears. Otherwise, I would recommend TPN for nutrition for now. - Referral to [facility] [place] for evaluation by surgery (would recommend bariatric group -- [facility] or [facility]) and gastroenterology (Dr Karina Johnson or Dr Tyrel Schulte). Would recommend repeat EGD at [place] (with fluoroscopy) in 6-8 weeks to reassess. - Avoid NSAIDs. Sharon Dawkins MD
[2019-04-29] MEDS ORDERED: Pantoprazole TAB * 40 MG TAB PO SCH (21:00)
--- NOTE | 2019-04-29 21:11 | PN ---
PROGRESS NOTE: DATE OF VISIT: 04/29/19 HISTORY OF PRESENT ILLNESS: Ms. Callaway's case has been again presented through the mid level staff familiar with her after seeing her last week. She got readmitted with continued abdominal pain and vomiting. We have requested the gastroenterology team to evaluate her. At the last EGD at [facility], the endoscopist was unable to enter into the jejunum through the gastrojejunostomy. There was some minimal bleeding and there was a concern for ulcer at this site. Stricture was not ruled on endoscopy, although we had seen a free flow of contrast on upper GI. The patient has a complex abdominal surgical history that has been reviewed and I also reached out to part of the patient's team at [facility] Calvert and discussed her care since she has been in this hospital as well. The recommendation per the seasoned surgeon was that the patient should not be treated except at a tertiary center and she has been recommended to go o the [facility]. I did review her CAT scan and her labs. The patient is tolerating liquids and she can maintain on liquids at this point and may be this is the best she could hope for. The patient has anywhere from 3 to 4 small bowel and stomach anastomosis and I feel that there is not much we could do at our center for this complex patient; however, my thoughts of a gastro-jejunal stricture and ulcer causing her symptoms as well as a severe weight loss, I feel it should be worked up at least with one more EGD if possible within our institution. If this is not possible, then I think the patient should be transferred to [place] where the patient can get another attempted endoscopy and possibly a push endoscopy to evaluate any additional distal anastomosis. I do not feel comfortable treating the patient operatively in our institution and at this point, the patient does not have surgical disease. We will follow along, but this does become a complex case outside of our purview. [id number]/[facility] #: [id number] [facility] FACILITYNadege
[2019-04-29] MEDS: Gabapentin CAP(*) 300 MG PO SCH (21:38)
[2019-04-29] MEDS: Enoxaparin(*) 60 MG/0.6 ML SYR SUBCUT SCH (21:38)
[2019-04-29] MEDS: QUEtiapine TAB* 100 MG PO SCH (21:39)
[2019-04-29] MEDS: CMCS: Omeprazole CAP (NF) 20 MG CAP.DR PO SCH (21:39)
[2019-04-29] MEDS: Sucralfate SUSP 1 GM/10 ml 10 ML UDC PO SCH (21:41)
--- NOTE | 2019-04-29 21:52 | PN ---
Subjective Date of Service: 04/29/19 Interval History: Patient continues to c/o abd pain. Denies chest pain or shortness of breath. Denies fever or chills. Denies vomiting. continues to c/o nausea. Family History: Unchanged from Admission Social History: Unchanged from Admission Past Medical History: Unchanged from Admission Objective Active Medications: Bupropion HCl (Bupropion Xl*) 300 mg PO DAILY [facility] Diphenhydramine HCl (Benadryl Iv*) 12.5 mg IV Q8H PRN PRN Reason: ITCHING Enoxaparin Sodium (Lovenox(*)) 60 mg SUBCUT Q12HR [facility] Last Admin: 04/29/19 21:38 Dose: 60 mg Gabapentin (Neurontin Cap(*)) 300 mg PO TID [facility] Last Admin: 04/29/19 21:38 Dose: 300 mg Hydroxyzine HCl (Atarax Tab*) 50 mg PO Q8HR PRN PRN Reason: .ANXIETY Lactated Ringer's (Lactated Ringers 1000 Ml Bag*) 1,000 mls @ 150 mls/hr IV PER RATE [facility] Last Admin: 04/29/19 11:34 Dose: 150 mls/hr Levothyroxine Sodium (Synthroid Tab*) 25 mcg PO 0600 [facility] Morphine Sulfate (Morphine Inj (Syringe))*) 2 mg IV Q3H PRN PRN Reason: PAIN - MODERATE Last Admin: 04/29/19 12:50 Dose: 2 mg Omeprazole (Prilosec Cap* (Nf)) 40 mg PO BID [facility] Last Admin: 04/29/19 21:39 Dose: 40 mg Ondansetron HCl (Zofran Inj*) 4 mg IV Q6H PRN PRN Reason: NAUSEA Last Admin: 04/29/19 12:50 Dose: 4 mg Quetiapine Fumarate (Seroquel Tab*) 100 mg PO BID [facility] Last Admin: 04/29/19 21:39 Dose: 100 mg Sucralfate (Sucralfate Susp) 1 gm PO QID [facility] Last Admin: 04/29/19 21:41 Dose: 1 gm Vital Signs - 8 hr 04/29/19 04/29/19 04/29/19 14:03 17:14 21:38 Temperature 97.7 F Pulse Rate 78 Respiratory 14 16 16 Rate Blood Pressure 92/59 (mmHg) O2 Sat by Pulse 100 Oximetry Oxygen Devices in Use Now: None Appearance: appears comfortable resting in bed , no acute distress Eyes: No Scleral Icterus Ears/Nose/Mouth/Throat: Clear Oropharnyx, Mucous Membranes Moist Neck: NL Appearance and Movements; NL JVP, Trachea Midline Respiratory: Symmetrical Chest Expansion and Respiratory Effort, Clear to Auscultation Cardiovascular: NL Sounds; No Murmurs; No JVD, No Edema Abdominal: NL Sounds; No Tenderness; No Distention Extremities: No Edema, No Clubbing, Cyanosis Skin: No Rash or Ulcers Neurological: Alert and Oriented x 3 Nutrition: Taking PO's - Nutrition: Malnutrition Diagnosis/Plan Malnutrition Assessment by Registered Dietitian: Malnutrition Assessment Clinical Characteristics Chronic,Severe Malnutrition Assessment: - visible and severe clavicular muscle wasting Criteria - meeting <75% nutrient needs x >1 mo (severe) - unintentional wt loss x 4 mos (current wt 120lb, UBW 170lb x4 months ago = 29.4% loss/4 mos) Malnutrition Assessment: - will follow labs/electrolytes/BG during NPO Interventions status - if nutrition support initiated, follow for s/ sx refeeding syndrome - if po diet ordered, start w/small amounts full liquid-type textures and liquid supplements - follow GI consult and any plans for surgical intervention Malnutrition Assessment: Goals 1. pt will remain NPO per provider order 2. RDN suggests initiation of PPN base A and monitoring for s/sx refeeding syndrome 3. maintain fluid/electrolyte balance without clinical s/sx dehydration 4. bowel regularity w/o development of diarrhea / constipation Result Diagrams: 04/30/19 05:58 04/30/19 16:50 Microbiology and Other Data: Microbiology 04/28/19 00:15 Nasal Screen MRSA (PCR) - Final Nasal Mrsa Not Detected Assess/Plan/Problems-Billing Assessment: Ms. Callaway is a 43 y.o presented to the ER with abd pain, N/V unable to tolerate po food or fluids. Patient was recently admitted from 04/16-04/24 for Ulcer at stomach anastomosis, Possible stricture at anastomosis, Small bowel obstruction versus ileus, Severe protein-calorie malnutrition. - Patient Problems (1) Abdominal pain Status: Acute Code(s): R10.9 - UNSPECIFIED ABDOMINAL PAIN SNOMED Code(s): 67668753 Comment: - severe ulceration at anastomosis- unable to pass EGD scope to evaluate GI has recommended NPO except medications, NO NSAIDS, omeprazole cap opened and sprinkling in a small amt of applesauce will order picc line and start TPN tomorrow as per recommendations recommended follow up with at [facility] with GI as outpatient for repeat EDG in 6-8 weeks - CT with no obstruction - Appreciate Surgery consult: pending further recommendations - Appreciate GI consult: pending - - Continue IVF, Zofran, morphine (2) Anemia Status: Acute Code(s): D64.9 - ANEMIA, UNSPECIFIED SNOMED Code(s): 547147215 Comment: -H/h stable -Continue with PPI BID -Continue to monitor (3) Bipolar disorder Status: Acute Code(s): F31.9 - BIPOLAR DISORDER, UNSPECIFIED SNOMED Code(s) : 18356037 Comment: - will resume home medications (4) Chronic malnutrition Status: Acute Code(s): E46 - UNSPECIFIED PROTEIN-CALORIE MALNUTRITION SNOMED Code(s): 4918671 Comment: - Chronic, severe - will moniot for need to add D5 to IVF. - NPO- for upper endoscopy - will change diet based on findings - IF patient remains NPO after endoscopy - will need to start TPN or PPN as per nutrition recommendations (5) History of DVT (deep vein thrombosis) Status: Acute Code(s): Z86.718 - PERSONAL HISTORY OF OTHER VENOUS THROMBOSIS AND EMBOLISM SNOMED Code(s): 350945503 Comment: -Pt with h/o DVT August 2018, on Eliquis -This occurred during hospitalization at [place], therefore likely provoked -Eliquis held by surgery/GI for EGD and other interventions (6) Hypothyroidism Status: Acute Code(s): E03.9 - HYPOTHYROIDISM, UNSPECIFIED SNOMED Code(s): 84014125 Comment: - levothyroxine (7) DVT prophylaxis Status: Acute Code(s): Z29.9 - ENCOUNTER FOR PROPHYLACTIC MEASURES, UNSPECIFIED SNOMED Code(s): 466077728 Comment: - SCDs (8) Full code status Status: Acute Code(s): Z78.9 - OTHER SPECIFIED HEALTH STATUS SNOMED Code(s) : 457859505 Comment: Status and Disposition: inpatient
--- NOTE | 2019-04-30 00:50 | PRO ---
CC: Tejal Fernandez NP; Dr. Lyman * DATE OF PROCEDURE: 04/29/19 - ROOM #411 PROCEDURE: Upper endoscopy. REQUESTING PROVIDER: Tejal Fernandez NP. MEDICATIONS GIVEN: Midazolam 11 mg IV, Fentanyl 75 mcg IV. DESCRIPTION OF PROCEDURE: Full disclosure of risks was reviewed with the patient as detailed on the consent form. The patient was placed in the left lateral decubitus position and monitored with continuous pulse oximetry, capnography, interval blood pressure monitoring, and direct observation. A bite block was placed between the patient's teeth. An adult gastroscope was then inserted into the patient's mouth and advanced down the esophagus and into the gastric pouch. Findings and interventions are described below. FINDINGS: Esophagus was a normal tubular structure without rings or strictures. GE junction appeared regular at 37 cm. The scope was then advanced into the gastric pouch, which was unremarkable in appearance. This pouch measured at 3 to 4 cm. GJ anastomosis identified. The GJ anastomosis was very narrowed. There was friable mucosa surrounding this small opening. I could see a portion of a clean based ulcer on the jejunal side of the anastomosis. However, I was unable to completely visualize the ulcer as I was could not advance the scope through this friable and strictured anastomosis. At this point, I had Dr. Esmer badillo. He quickly came to the endoscopy unit and was able to directly appreciate the abnormal appearing anastomosis with ulcer. The scope was then withdrawn from the patient. The patient was recovered in the GI recovery area. IMPRESSION: 1. Upper endoscopy to gastrojejunal anastomosis. 2. Gastrojejunal anastomosis appeared strictured and ulcerated. I was unable to fully assess the ulceration as I could not advance the scope into the Marizol limb. I suspect that a large porion of the patient's nausea, vomiting, abdominal pain, and p.o. intolerance symptoms are related to this endoscopic finding. FOLLOW-UP: 1. Recommend symptomatic control to her primary team to attempt to manage her pain and nausea and vomiting. 2. Recommend the patient be placed largely NPO. If symptoms begin to improve in the future, then her diet can be liberalized to clears or liquids. However, I believe for now her nutritional needs would be best met with TPN. 3. Recommend switching to Nexium or omeprazole 40 mg twice daily capsules, which should be opened into a small amount of applesauce. Another alternative would be the use of powdered form of PPI, which should be high dose twice daily. This drug selection will likely depend on hospital formulary. 4. Recommend Carafate 4 times a day as able. OK to discontinue if patient is unable to tolerate this med. 5. Recommend referral to [facility] for evaluation by one of the surgeons specializing in bariatric surgeries. This would be either Dr. Saravia or Dr. Hayden. I would also recommend referral to advanced endoscopist in gastroenterology at [facility]. Will consider Dr. Karina Johnson or Dr. Tyrel Schulte. Ideally, she should see these providers within the next few weeks in the outpatient setting to determine appropriate plan. A repeat EGD at [place] with fluoroscopy in 6 to 8 weeks may be appropriate to determine if bowel rest and high dose PPI were helpful. 6. Avoid NSAIDs. Avoid smoking. I discussed this plan in detail with Dr. Lyman. He is in agreement. I contacted the primary team to review these recommendations as well. Thank you very much for this consult. Please contact GI if any additional questions or concerns at this point. [id number]/[facility] #: [id number] [facility]
[2019-04-30] MEDS: Lactated Ringers 1000 ML Bag* 1,000 ML IV SCH (01:51)
[2019-04-30] MEDS: Levothyroxine TAB* 25 MCG TAB PO SCH (06:20)
[2019-04-30 06:28] LABS: INR 0.97 (0.82-1.09)
[2019-04-30 06:34] LABS: ABS Lymphocytes 1.4 10^3/ul (1.0-4.8); ABS Monocytes 0.3 10^3/ul (0-0.8); ABS Neutrophils 1.3 10^3/ul (1.5-7.7); Eosinophil % 1.1 %; Hematocrit 27 % (35-47); Lymphocyte % 46.7 %; Mean Corpuscular HGB Conc 34 g/dL (31-36); Mean Corpuscular Hemoglobin 34 pg (27-31); Mean Corpuscular Volume 100 fL (80-97); Mean Platelet Volume 8.8 fL (7.4-10.4); Platelet Count 124 10^3/uL (150-450); Red Blood Count 2.68 10^6 /uL (3.70-4.87); Red Cell Distribution Width 21 % (10-15); White Blood Count 3.1 10^3/uL (3.5-10.8)
[2019-04-30 06:35] LABS: BUN/Creatinine Ratio 14.5 (8-20); Calcium 7.7 mg/dL (8.6-10.3); EGFR African American 146.7 (>60); EGFR Non-African American 121.2 (>60); Potassium 3.9 mmol/L (3.5-5.0)
[2019-04-30] MEDS ORDERED: Dextrose 50% VIAL 50 ml ONE (06:44)
[2019-04-30] MEDS ORDERED: Dextrose 50% VIAL 50 ml IV PUSH ONE (07:00)
[2019-04-30] MEDS: CMCS: Omeprazole CAP (NF) 20 MG CAP.DR PO SCH ×2 (07:45→21:48)
[2019-04-30] MEDS: BuPROPion XL* 300 MG TAB.XL PO SCH (07:45)
[2019-04-30] MEDS: QUEtiapine TAB* 100 MG PO SCH ×2 (07:46→21:48)
[2019-04-30] MEDS: Gabapentin CAP(*) 300 MG PO SCH ×3 (07:47→21:48)
[2019-04-30] MEDS: Enoxaparin(*) 60 MG/0.6 ML SYR SUBCUT SCH (07:51)
[2019-04-30] MEDS: Sucralfate SUSP 1 GM/10 ml 10 ML UDC PO SCH ×4 (07:52→21:48)
[2019-04-30] MEDS: Ondansetron INJ* 2 MG/ML VIAL IV PRN ×2 (07:53→13:20)
[2019-04-30 07:55] LABS: Albumin 2.1 g/dL (3.2-5.2); Globulin 2.1 g/dL (2-4); Indirect Bilirubin 0.4 mg/dL (0.3-1.0); Magnesium 1.2 mg/dL (1.9-2.7); Phosphorus 3.5 mg/dL (2.5-5.0); Total Bilirubin 0.5 mg/dL (0.2-1.0); Total Protein 4.2 g/dL (6.4-8.9)
[2019-04-30] MEDS: Morphine INJ* 2 MG/ML 1 ML SYRINGE (TWO MG - NEW SYRINGE VERSION) IV PRN ×3 (08:00→17:34)
[2019-04-30] MEDS ORDERED: Thiamine INJ* 100 MG in NS 0.9% 50 ML* 50 ML IV ONE (08:00)
[2019-04-30] MEDS ORDERED: Magnesium Sulfate 2 GM IV* 2 GM/50 ML BAG IVPB ONE (09:40)
[2019-04-30] MEDS: Sodium Bicarbonate 8.4% IV* 50 MEQ in D5W 1/2 NS 1000 ML BAG* 1,000 ML IV SCH (10:41)
[2019-04-30] MEDS ORDERED: Dextrose 50% Syringe 50 ML* 25 GM/50 ML SYRINGE IV PUSH PRN (11:00)
[2019-04-30] MEDS ORDERED: Dextrose 50% VIAL 50 ml IV PUSH PRN (11:06)
[2019-04-30] MEDS: hydrOXYzine HCL TAB* 50 MG PO PRN (13:24)
--- NOTE | 2019-04-30 13:56 | PN ---
Progress Note - Progress Note Date of Service: 04/30/19 SOAP: Subjective: Pt comfortable in bed, reports recent pain meds, no pain at time of exam. Denies nausea,vomiting, flatus or BM [] Objective: Vital Signs: Temp Pulse Resp BP Pulse Ox 98.3 F 84 16 101/64 99 04/30/19 07:25 04/30/19 07:25 04/30/19 13:25 04/30/19 07:25 04/30/19 07:25 Intake & Output 04/29/19 04/30/19 04/30/19 22:59 06:59 14:59 Intake Total 800 0 Output Total 300 Balance 500 0 Sodium 137 mmol/L (135-145) 04/30/19 05:58 Potassium 3.9 mmol/L (3.5-5.0) 04/30/19 05:58 BUN 8 mg/dL (6-24) 04/30/19 05:58 Creatinine 0.55 mg/dL (0.51-0.95) 04/30/19 05:58 Calcium 7.7 mg/dL (8.6-10.3) L 04/30/19 05:58 Magnesium 1.2 mg/dL (1.9-2.7) L 04/30/19 05:58 AST 18 U/L (13-39) 04/30/19 05:58 ALT 13 U/L (7-52) 04/30/19 05:58 CXR: 04/30 FINDINGS: There is a PICC present entering on the right side. The catheter tip projects in the region of the superior vena cava right atrial junction. The heart is within normal limits in size. Mediastinal contours appear normal. The lungs are clear. No pleural effusion is seen. IMPRESSION: STATUS POST PICC PLACEMENT, NO EVIDENCE FOR ACUTE FINDING. Procedure report DATE OF PROCEDURE: 04/29/19 - ROOM #411 PROCEDURE: Upper endoscopy. REQUESTING PROVIDER: Tejal Fernandez NP. MEDICATIONS GIVEN: Midazolam 11 mg IV, Fentanyl 75 mcg IV. DESCRIPTION OF PROCEDURE: Full disclosure of risks was reviewed with the patient as detailed on the consent form. The patient was placed in the left lateral decubitus position and monitored with continuous pulse oximetry, capnography, interval blood pressure monitoring, and direct observation. A bite block was placed between the patient's teeth. An adult gastroscope was then inserted into the patient's mouth and advanced down the esophagus and into the gastric pouch. Findings and interventions are described below. FINDINGS: Esophagus was a normal tubular structure without rings or strictures. GE junction appeared regular at 37 cm. The scope was then advanced into the gastric pouch, which was unremarkable in appearance. This pouch measured at 3 to 4 cm. GJ anastomosis identified. The GJ anastomosis was very narrowed. There was friable mucosa surrounding this small opening. The scope was advanced through this area and I could see a portion of a clean based ulcer on the jejunal side of the anastomosis. I was unable to completely visualize the ulcer as I was unable to advance the scope through this friable and strictured anastomosis. At this point, I had Dr. Esmer badillo. He quickly came to the endoscopy unit and was able to directly appreciate the abnormal appearing anastomosis with ulcer. The scope was then withdrawn from the patient. The patient was recovered in the GI recovery area. IMPRESSION: 1. Upper endoscopy to gastrojejunal anastomosis. 2. Gastrojejunal anastomosis appeared strictured and ulcerated. I was unable to fully assess the ulceration, as I could not advance the scope into the Marizol limb. I suspect that a large porion of the patient's nausea, vomiting, abdominal pain, and p.o. intolerance are related to this endoscopic finding. 3. I would recommend symptomatic control to her primary team to attempt to manage her pain and nausea and vomiting. 4. I would recommend the patient being placed largely n.p.o. except for sips or meds. If symptoms begin to improve in the future, then her diet can be liberalized to clears or liquids. However, I believe for now her nutritional needs would be best met with TPN. 5. Recommend switching to Nexium or omeprazole 40 mg twice daily capsules, which should be opened into a small amount of applesauce. Another alternative would be the use of powdered form of PPI which would be high dose twice daily. This drug selection will likely depend on hospital formulary. This administration of PPI is preferable with marginal ulcers due to issues with absorption when the regular tablets are used. PEX: Chest: CTA B/L CVS: RRR ABD: Soft, Minimal Tenderness LUQ, remaining abdomen exam benign no guarding EXT: calves soft B/L nontender [] Assessment: 43 yo female with above hx, PICC line placed today, will need TPN & PPI x 6 - 8 weeks. [] Plan: Await response to bowel rest with TPN/PPI non operative management. Above D/W the patient and Dr Lyman.
[2019-04-30] MEDS ORDERED: TPN* 24 HR with Dextrose 50% Water* 500 ML, Amino Acid Infusion 10%* 850 ML, Sterile Wa... CENTR SCH ×12 (17:00)
[2019-04-30 17:28] LABS: BUN/Creatinine Ratio 10.9 (8-20); Calcium 7.2 mg/dL (8.6-10.3); EGFR African American 146.7 (>60); EGFR Non-African American 121.2 (>60); Potassium 3.3 mmol/L (3.5-5.0)
--- NOTE | 2019-04-30 20:17 | PN ---
Subjective Date of Service: 04/30/19 Interval History: Labwork reviewed - Patient with hypoglycemia on labs and acidosis - likely d/t malnutrition- Patient must remain NPO d/t endoscopy findings. Was started D5 1/ 2 NS with bicarb at 125cc/hr while waiting for PICC and TPN to start. ordered repeat labs for 1700 and Q2 hour accu checks Patient reports that she was able to tolerate applesauce with AM pills. denies vomiting or nausea. Continues to have abd pain. denies leg pain. Denies chest pain or shortness of breath. Denies fever or chills SPoke to GI last evening who recommended NPO x meds with applesauce and sips of water. Start TPN and PPI BID patient will need follow up with GI /Surgery at [place] in 6-8 weeks for repeat upper endoscopy. 1700 - Repeat BMP this evening bicarb and GAp have normalized, blood sugar is stable. Patient has received a PICC line and TPN was started. Family History: Unchanged from Admission Social History: Unchanged from Admission Past Medical History: Unchanged from Admission Objective Active Medications: Apixaban (Eliquis*) 5 mg PO BID [facility] Bupropion HCl (Bupropion Xl*) 300 mg PO DAILY [facility] Last Admin: 04/30/19 07:45 Dose: 300 mg Dextrose (Dextrose 50% Vial 50 Ml*) 50 ml IV PUSH ONCE PRN PRN Reason: FS < 60 Stop: 05/01/19 10:59 Last Admin: 04/30/19 11:17 Dose: 50 ml Diphenhydramine HCl (Benadryl Iv*) 12.5 mg IV Q8H PRN PRN Reason: ITCHING Gabapentin (Neurontin Cap(*)) 300 mg PO TID [facility] Last Admin: 04/30/19 13:25 Dose: 300 mg Heparin Sodium (Porcine) (Heparin Flush Picc/Ml/Cvc(*)) 1 - 3 ml FLUSH 0600, 1800 [facility]; Protocol Last Admin: 04/30/19 17:17 Dose: 1 ml Hydroxyzine HCl (Atarax Tab*) 50 mg PO Q8HR PRN PRN Reason: .ANXIETY Last Admin: 04/30/19 13:24 Dose: 50 mg Dextrose 500 ml/ Amino Acids 850 ml/ Sterile Water 150 ml/Fat Emulsion Intravenous 250 ml/ Sodium Chloride 100 meq/Potassium Chloride 50 meq/Potassium Phosphate 15 mmole/Calcium Gluconate 15 meq/Magnesium Sulfate 10 meq/ Multivitamins 10 ml/ Trace Metals 1 ml/ Nutrition ( Parenteral) 1,850.721 mls @ 77.113 mls/hr CENTR 1700 [facility] Last Admin: 04/30/19 17:10 Dose: 77.113 mls/hr Potassium Chloride (Potassium Chloride 20 Meq/100 Ml Ivpremix*) 20 meq in 100 mls @ 50 mls/hr IV Q2H [facility] Stop: 04/30/19 22:59 Levothyroxine Sodium (Synthroid Tab*) 25 mcg PO 0600 [facility] Last Admin: 04/30/19 06:20 Dose: 25 mcg Morphine Sulfate (Morphine Inj (Syringe))*) 2 mg IV Q3H PRN PRN Reason: PAIN - MODERATE Last Admin: 04/30/19 17:34 Dose: 2 mg Omeprazole (Prilosec Cap* (Nf)) 40 mg PO BID [facility] Last Admin: 04/30/19 07:45 Dose: 40 mg Ondansetron HCl (Zofran Inj*) 4 mg IV Q6H PRN PRN Reason: NAUSEA Last Admin: 04/30/19 13:20 Dose: 4 mg Quetiapine Fumarate (Seroquel Tab*) 100 mg PO BID [facility] Last Admin: 04/30/19 07:46 Dose: 100 mg Sucralfate (Sucralfate Susp) 1 gm PO QID [facility] Last Admin: 04/30/19 17:24 Dose: 1 gm Vital Signs - 8 hr 04/30/19 04/30/19 04/30/19 12:54 13:25 15:52 Temperature 97.6 F Pulse Rate 62 Respiratory 16 16 16 Rate Blood Pressure 91/59 (mmHg) O2 Sat by Pulse 96 Oximetry 04/30/19 04/30/19 17:24 17:34 Temperature Pulse Rate Respiratory 16 14 Rate Blood Pressure (mmHg) O2 Sat by Pulse Oximetry Oxygen Devices in Use Now: None Appearance: appears comfortable, no acute distress Eyes: No Scleral Icterus Ears/Nose/Mouth/Throat: Mucous Membranes Moist Neck: NL Appearance and Movements; NL JVP, Trachea Midline Respiratory: Symmetrical Chest Expansion and Respiratory Effort, Clear to Auscultation Cardiovascular: NL Sounds; No Murmurs; No JVD, No Edema Abdominal: NL Sounds; No Tenderness; No Distention, - - hypoactive BS, ABD flat Extremities: No Edema, No Clubbing, Cyanosis Skin: No Rash or Ulcers Neurological: Alert and Oriented x 3 - Nutrition: Malnutrition Diagnosis/Plan Malnutrition Assessment by Registered Dietitian: Malnutrition Assessment Clinical Characteristics Chronic,Severe Malnutrition Assessment: - visible and severe clavicular muscle wasting Criteria - meeting <75% nutrient needs x >1 mo (severe) - unintentional wt loss x 4 mos (current wt 120lb, UBW 170lb x4 months ago = 29.4% loss/4 mos) Malnutrition Assessment: - will follow labs/electrolytes/BG during NPO Interventions status - if nutrition support initiated, follow for s/ sx refeeding syndrome - if po diet ordered, start w/small amounts full liquid-type textures and liquid supplements - follow GI consult and any plans for surgical intervention Malnutrition Assessment: Goals 1. pt will remain NPO per provider order 2. RDN suggests initiation of PPN base A and monitoring for s/sx refeeding syndrome 3. maintain fluid/electrolyte balance without clinical s/sx dehydration 4. bowel regularity w/o development of diarrhea / constipation Result Diagrams: 04/30/19 05:58 04/30/19 16:50 Microbiology and Other Data: Microbiology 04/28/19 00:15 Nasal Screen MRSA (PCR) - Final Nasal Mrsa Not Detected Assess/Plan/Problems-Billing Assessment: Ms. Callaway is a 43 y.o presented to the ER with abd pain, N/V unable to tolerate po food or fluids. Patient was recently admitted from 04/16-04/24 for Ulcer at stomach anastomosis, Possible stricture at anastomosis, Small bowel obstruction versus ileus, Severe protein-calorie malnutrition. - Patient Problems (1) Abdominal pain Status: Acute Code(s): R10.9 - UNSPECIFIED ABDOMINAL PAIN SNOMED Code(s): 01899824 Comment: - severe ulceration at anastomosis- unable to pass EGD scope to evaluate GI has recommended NPO except medications, NO NSAIDS, omeprazole cap opened and sprinkling in a small amt of applesauce picc line placed and TPN started as per recommendations- of GI and nutrition recommended follow up with [facility] with GI as outpatient for repeat EDG in 6-8 weeks - CT with no obstruction - Appreciate Surgery consult: NPO and TPN- no surgery needed at this time - stopped IVF - Conitnue Zofran, morphine (2) Thrombocytopenia Current Visit: Yes Status: Acute Code(s): D69.6 - THROMBOCYTOPENIA, UNSPECIFIED SNOMED Code(s): 657032447 Comment: mild thrombocytopenia - will continue to monitor, stop lovenox and resume eliquis (3) Anemia Status: Acute Code(s): D64.9 - ANEMIA, UNSPECIFIED SNOMED Code(s): 507606707 Comment: -H/h stable but decreased - will continue to monitor likely d/t malnutrition and dilution -Continue with PPI BID as per GI recommendations -Continue to monitor (4) Bipolar disorder Status: Acute Code(s): F31.9 - BIPOLAR DISORDER, UNSPECIFIED SNOMED Code(s) : 44168458 Comment: - continue home medications (5) Chronic malnutrition Status: Acute Code(s): E46 - UNSPECIFIED PROTEIN-CALORIE MALNUTRITION SNOMED Code(s): 8644278 Comment: - Chronic, severe - patient with hypoglycemia this AM - IVF changes to D51/2 NS and 1 amp Bicarb- d/c'd after TPN was started - NPO- d/t severity of ulceration and GI recommendations - TPN started as per GI and nutrition recommendations (6) History of DVT (deep vein thrombosis) Status: Acute Code(s): Z86.718 - PERSONAL HISTORY OF OTHER VENOUS THROMBOSIS AND EMBOLISM SNOMED Code(s): 003288321 Comment: -Pt with h/o DVT August 2018, on Eliquis -This occurred during hospitalization at [place], therefore likely provoked -Eliquis resumed (7) Hypothyroidism Status: Acute Code(s): E03.9 - HYPOTHYROIDISM, UNSPECIFIED SNOMED Code(s): 43183524 Comment: - levothyroxine (8) DVT prophylaxis Status: Acute Code(s): Z29.9 - ENCOUNTER FOR PROPHYLACTIC MEASURES, UNSPECIFIED SNOMED Code(s): 457064898 Comment: - eliquis (9) Full code status Status: Acute Code(s): Z78.9 - OTHER SPECIFIED HEALTH STATUS SNOMED Code(s) : 928116211 Comment: Status and Disposition: inpatient
[2019-04-30] MEDS: KCL 20 MEQ/100 ML IVPREMIX* 20 MEQ/100 ML BAG IV SCH (21:47)
[2019-05-01] MEDS: Ondansetron INJ* 2 MG/ML VIAL IV PRN ×4 (00:29→23:23)
[2019-05-01] MEDS: Morphine INJ* 2 MG/ML 1 ML SYRINGE (TWO MG - NEW SYRINGE VERSION) IV PRN ×6 (00:31→23:30)
[2019-05-01] MEDS ORDERED: KCL 20 MEQ/100 ML IVPREMIX* 20 MEQ/100 ML BAG IV ONE (01:30)
[2019-05-01] MEDS: KCL 20 MEQ/100 ML IVPREMIX* 20 MEQ/100 ML BAG IV SCH (04:24)
[2019-05-01] MEDS: Levothyroxine TAB* 25 MCG TAB PO SCH (06:12)
[2019-05-01 06:39] LABS: ABS Monocytes 0.3 10^3/ul (0-0.8); ABS Neutrophils 1.2 10^3/ul (1.5-7.7); Eosinophil % 1.3 %; Hematocrit 24 % (35-47); Hemoglobin 8.3 g/dL (12.0-16.0); Lymphocyte % 39.7 %; Mean Corpuscular HGB Conc 34 g/dL (31-36); Mean Corpuscular Hemoglobin 34 pg (27-31); Mean Corpuscular Volume 99 fL (80-97); Mean Platelet Volume 8.1 fL (7.4-10.4); Nucleated Red Blood Cells % 0.1; Platelet Count 200 10^3/uL (150-450); Red Blood Count 2.46 10^6 /uL (3.70-4.87); Red Cell Distribution Width 21 % (10-15); White Blood Count 2.6 10^3/uL (3.5-10.8)
[2019-05-01 06:56] LABS: BUN/Creatinine Ratio 9.1 (8-20); Calcium 7.5 mg/dL (8.6-10.3); EGFR African American 146.7 (>60); EGFR Non-African American 121.2 (>60); Magnesium 1.4 mg/dL (1.9-2.7); Phosphorus 2.4 mg/dL (2.5-5.0); Total Bilirubin 0.3 mg/dL (0.2-1.0)
[2019-05-01] MEDS: Gabapentin CAP(*) 300 MG PO SCH ×3 (08:12→20:53)
[2019-05-01] MEDS: BuPROPion XL* 300 MG TAB.XL PO SCH (08:14)
[2019-05-01] MEDS: QUEtiapine TAB* 100 MG PO SCH ×2 (08:14→20:54)
[2019-05-01] MEDS: Sucralfate SUSP 1 GM/10 ml 10 ML UDC PO SCH ×4 (08:14→21:04)
[2019-05-01] MEDS: Apixaban* 5 MG TAB PO SCH ×2 (08:14→20:53)
[2019-05-01] MEDS: CMCS: Omeprazole CAP (NF) 20 MG CAP.DR PO SCH ×2 (08:32→20:49)
--- NOTE | 2019-05-01 15:05 | PN ---
Subjective Date of Service: 05/01/19 Interval History: Ms. Callaway is feeling a bit better today. Pain is 7/10, improved from 10/10. Morphine is helping and pain level is tolerable. No nausea, but she has been taking somewhat Zofran regularly. Denies CP, SOB. No concerns from nursing. Family History: Unchanged from Admission Social History: Unchanged from Admission Past Medical History: Unchanged from Admission Objective Active Medications: Apixaban (Eliquis*) 5 mg PO BID [facility] Bupropion HCl (Bupropion Xl*) 300 mg PO DAILY [facility] Diphenhydramine HCl (Benadryl Iv*) 12.5 mg IV Q8H PRN ITCHING Gabapentin (Neurontin Cap(*)) 300 mg PO TID [facility] Heparin Sodium (Porcine) (Heparin Flush Picc/Ml/Cvc(*)) 1 - 3 ml FLUSH 0600, 1800 [facility]; Protocol Hydroxyzine HCl (Atarax Tab*) 50 mg PO Q8HR PRN ANXIETY Dextrose 500 ml/ Amino Acids 850 ml/ Sterile Water 150 ml/Fat Emulsion Intravenous 250 ml/ Sodium Chloride 100 meq/Potassium Chloride 50 meq/Potassium Phosphate 15 mmole/Calcium Gluconate 15 meq/Magnesium Sulfate 10 meq/ Multivitamins 10 ml/ Trace Metals 1 ml/ Nutrition ( Parenteral) 1,850.721 mls @ 77.113 mls/hr CENTR 1700 [facility] Dextrose 500 ml/ Amino Acids 850 ml/ Sterile Water 150 ml/Fat Emulsion Intravenous 250 ml/ Sodium Chloride 100 meq/Potassium Chloride 50 meq/Potassium Phosphate 15 mmole/Calcium Gluconate 15 meq/Magnesium Sulfate 20 meq/ Multivitamins 10 ml/ Trace Metals 1 ml/ Nutrition ( Parenteral) 1,853.1841 mls @ 77.113 mls/hr CENTR 1700 [facility] Levothyroxine Sodium (Synthroid Tab*) 25 mcg PO 0600 [facility] Morphine Sulfate (Morphine Inj (Syringe))*) 2 mg IV Q3H PRN PAIN - MODERATE Omeprazole (Prilosec Cap* (Nf)) 40 mg PO BID [facility] Ondansetron HCl (Zofran Inj*) 4 mg IV Q6H PRN NAUSEA Quetiapine Fumarate (Seroquel Tab*) 100 mg PO BID [facility] Sucralfate (Sucralfate Susp) 1 gm PO QID [facility] Vital Signs - 8 hr 1005/01/19 05/01/19 07:55 08:00 08:12 Temperature 97.4 F Pulse Rate 72 Respiratory 16 16 16 Rate Blood Pressure 92/68 (mmHg) O2 Sat by Pulse 99 Oximetry 05/01/19 05/01/19 05/01/19 11:00 13:16 13:22 Temperature 98.7 F Pulse Rate 66 Respiratory 16 16 Rate Blood Pressure 89/62 98/70 (mmHg) O2 Sat by Pulse 99 Oximetry Oxygen Devices in Use Now: None Appearance: Middle-aged female lying in bed in NAD Ears/Nose/Mouth/Throat: Mucous Membranes Moist Neck: NL Appearance and Movements; NL JVP, Trachea Midline Respiratory: Symmetrical Chest Expansion and Respiratory Effort, Clear to Auscultation Cardiovascular: NL Sounds; No Murmurs; No JVD, RRR Abdominal: - - Tender throughout, hypoactive BS Extremities: No Edema Neurological: Alert and Oriented x 3 Lines/Tubes/Other Access: Clean, Dry and Intact Peripheral IV Nutrition: TPN - Nutrition: Malnutrition Diagnosis/Plan Malnutrition Assessment by Registered Dietitian: Malnutrition Assessment Clinical Characteristics Chronic,Severe Malnutrition Assessment: - visible and severe clavicular muscle wasting Criteria - meeting <75% nutrient needs x >1 mo (severe) - unintentional wt loss x 4 mos (current wt 120lb, UBW 170lb x4 months ago = 29.4% loss/4 mos) Malnutrition Assessment: - will follow labs/electrolytes/BG during NPO Interventions status - if nutrition support initiated, follow for s/ sx refeeding syndrome - if po diet ordered, start w/small amounts full liquid-type textures and liquid supplements - follow GI consult and any plans for surgical intervention Malnutrition Assessment: Goals 1. pt will remain NPO per provider order 2. RDN suggests initiation of PPN base A and monitoring for s/sx refeeding syndrome 3. maintain fluid/electrolyte balance without clinical s/sx dehydration 4. bowel regularity w/o development of diarrhea / constipation Result Diagrams: 05/01/19 06:30 05/01/19 06:30 Assess/Plan/Problems-Billing Assessment: Ms. Callaway is a 43 yo F with PMH of bipolar, PTSD, DVT, recurrent SBO; presented to the ER with abd pain, N/V unable to tolerate PO intake. Patient was recently admitted from 04/16-04/24 for ulcer at stomach anastomosis, possible stricture at anastomosis, severe protein-calorie malnutrition. - Patient Problems (1) Abdominal pain Code(s): R10.9 - UNSPECIFIED ABDOMINAL PAIN Comment: - Multiple recent hospitalizations - CT with no obstruction - EGD on 04/29/19 showing severe ulceration at anastomosis; unable to pass EGD scope to evaluate - Appreciate GI consult; recommends NPO except meds, PPI, no NSAIDS - Appreciate Surgery consult; no surgery at this time, agrees with NPO and TPN - Recommended f/u at [place] with GI as outpatient for repeat EDG in 6-8 weeks - Continue TPN (unclear timeframe) - Conitnue Zofran, morphine, omeprazole, Carafate (2) Anemia Code(s): D64.9 - ANEMIA, UNSPECIFIED Comment: - H&H consistent with baseline from prior admission - Likely secondary to malnutrition - Continue omeprazole (3) Thrombocytopenia Code(s): D69.6 - THROMBOCYTOPENIA, UNSPECIFIED Comment: - Resolved with discontinuation of Lovenox (4) Chronic malnutrition Code(s): E46 - UNSPECIFIED PROTEIN-CALORIE MALNUTRITION Comment: - Chronic, severe - NPO d/t severity of ulceration and GI recommendations - Continue TPN; appreciate input from Dietary and Pharmacy (5) Bipolar disorder Code(s): F31.9 - BIPOLAR DISORDER, UNSPECIFIED Comment: - Continue bupropion, Seroquel, hydroxyzine (6) History of DVT (deep vein thrombosis) Code(s): Z86.718 - PERSONAL HISTORY OF OTHER VENOUS THROMBOSIS AND EMBOLISM Comment: - History of DVT August 2018; occurred during hospitalization at [place], therefore likely provoked - Continue Eliquis (7) Hypothyroidism Code(s): E03.9 - HYPOTHYROIDISM, UNSPECIFIED Comment: - Continue levothyroxine (8) DVT prophylaxis Code(s): Z29.9 - ENCOUNTER FOR PROPHYLACTIC MEASURES, UNSPECIFIED Comment: - Eliquis (9) Full code status Code(s): Z78.9 - OTHER SPECIFIED HEALTH STATUS Comment: Status and Disposition: Inpatient. Anticipate d/c home when medically stable. Unclear how long she will require TPN. Attending: Brittany Castro
[2019-05-01] MEDS ORDERED: TPN* 24 HR with Dextrose 50% Water* 500 ML, Amino Acid Infusion 10%* 850 ML, Sterile Wa... CENTR SCH ×12 (17:00)
[2019-05-02] MEDS: Sodium Bicarbonate 8.4% IV* 50 MEQ in D5W 1/2 NS 1000 ML BAG* 1,000 ML IV SCH (00:25)
[2019-05-02] MEDS: Morphine INJ* 2 MG/ML 1 ML SYRINGE (TWO MG - NEW SYRINGE VERSION) IV PRN ×5 (04:17→20:06)
[2019-05-02] MEDS: Levothyroxine TAB* 25 MCG TAB PO SCH (05:06)
[2019-05-02 05:32] LABS: Albumin 2.1 g/dL (3.2-5.2); BUN/Creatinine Ratio 19.1 (8-20); Calcium 7.4 mg/dL (8.6-10.3); EGFR African American 175.8 (>60); EGFR Non-African American 145.3 (>60); Globulin 2.1 g/dL (2-4); Magnesium 1.3 mg/dL (1.9-2.7); Phosphorus 2.6 mg/dL (2.5-5.0); Potassium 3.9 mmol/L (3.5-5.0); Total Bilirubin 0.3 mg/dL (0.2-1.0); Total Protein 4.2 g/dL (6.4-8.9)
[2019-05-02] MEDS: Sucralfate SUSP 1 GM/10 ml 10 ML UDC PO SCH ×4 (08:13→20:08)
[2019-05-02] MEDS: Ondansetron INJ* 2 MG/ML VIAL IV PRN ×2 (08:19→15:59)
[2019-05-02] MEDS: BuPROPion XL* 300 MG TAB.XL PO SCH (08:20)
[2019-05-02] MEDS: QUEtiapine TAB* 100 MG PO SCH ×2 (08:20→20:09)
[2019-05-02] MEDS: Apixaban* 5 MG TAB PO SCH ×2 (08:20→20:09)
[2019-05-02] MEDS: CMCS: Omeprazole CAP (NF) 20 MG CAP.DR PO SCH ×2 (08:20→20:08)
[2019-05-02] MEDS: Gabapentin CAP(*) 300 MG PO SCH ×3 (08:20→20:08)
[2019-05-02] MEDS ORDERED: Magnesium Sulfate IV* 3 GM in NS 0.9% 100 ML* 100 ML IVPB ONE (15:00)
--- NOTE | 2019-05-02 15:17 | PN ---
Subjective Date of Service: 05/02/19 Interval History: Ms. Callaway is not feeling any better today. Pain remains at 7/10 consistently. She is feeling nauseous on exam, but no emesis. Tolerating sips of liquids with meds. Denies CP, SOB. Asymptomatic episode of hypoglycemia last night. No concerns from nursing. Family History: Unchanged from Admission Social History: Unchanged from Admission Past Medical History: Unchanged from Admission Objective Active Medications: Apixaban (Eliquis*) 5 mg PO BID [facility] Bupropion HCl (Bupropion Xl*) 300 mg PO DAILY [facility] Diphenhydramine HCl (Benadryl Iv*) 12.5 mg IV Q8H PRN ITCHING Gabapentin (Neurontin Cap(*)) 300 mg PO TID [facility] Heparin Sodium (Porcine) (Heparin Flush Picc/Ml/Cvc(*)) 1 - 3 ml FLUSH 0600, 1800 [facility]; Protocol Hydroxyzine HCl (Atarax Tab*) 50 mg PO Q8HR PRN ANXIETY Dextrose 500 ml/ Amino Acids 850 ml/ Sterile Water 150 ml/Fat Emulsion Intravenous 250 ml/ Sodium Chloride 100 meq/Potassium Chloride 50 meq/Potassium Phosphate 15 mmole/Calcium Gluconate 15 meq/Magnesium Sulfate 20 meq/ Multivitamins 10 ml/ Trace Metals 1 ml/ Nutrition ( Parenteral) 1,853.1841 mls @ 77.113 mls/hr CENTR 1700 [facility] Magnesium Sulfate 3 gm/ Sodium (Chloride) 106 mls @ 53 mls/hr IVPB ONCE ONE Dextrose 500 ml/ Amino Acids 850 ml/ Sterile Water 150 ml/Fat Emulsion Intravenous 250 ml/ Sodium Chloride 100 meq/Potassium Chloride 50 meq/Potassium Phosphate 15 mmole/Calcium Gluconate 15 meq/Magnesium Sulfate 30 meq/ Multivitamins 10 ml/ Trace Metals 1 ml/ Nutrition ( Parenteral) 1,855.6471 mls @ 77.319 mls/hr CENTR 1700 [facility] Levothyroxine Sodium (Synthroid Tab*) 25 mcg PO 0600 [facility] Morphine Sulfate (Morphine Inj (Syringe))*) 2 mg IV Q3H PRN PAIN - MODERATE Omeprazole (Prilosec Cap* (Nf)) 40 mg PO BID [facility] Ondansetron HCl (Zofran Inj*) 4 mg IV Q6H PRN NAUSEA Quetiapine Fumarate (Seroquel Tab*) 100 mg PO BID [facility] Sucralfate (Sucralfate Susp) 1 gm PO QID [facility] Vital Signs - 8 hr 05/02/19 05/02/19 05/02/19 07:35 08:00 08:19 Temperature 97.9 F Pulse Rate 70 Respiratory 14 18 14 Rate Blood Pressure 86/60 (mmHg) O2 Sat by Pulse 100 Oximetry 05/02/19 05/02/19 05/02/19 11:20 12:20 13:05 Temperature 97 F Pulse Rate 69 Respiratory 18 17 17 Rate Blood Pressure 88/57 (mmHg) O2 Sat by Pulse 100 Oximetry Oxygen Devices in Use Now: None Appearance: Middle-aged female lying in bed in NAD Neck: NL Appearance and Movements; NL JVP, Trachea Midline Respiratory: Symmetrical Chest Expansion and Respiratory Effort, Clear to Auscultation Cardiovascular: NL Sounds; No Murmurs; No JVD, RRR Abdominal: - - Soft, tender throughout Neurological: Alert and Oriented x 3 Lines/Tubes/Other Access: Clean, Dry and Intact PICC Line Nutrition: TPN - Nutrition: Malnutrition Diagnosis/Plan Malnutrition Assessment by Registered Dietitian: Malnutrition Assessment Clinical Characteristics Chronic,Severe Malnutrition Assessment: - visible and severe clavicular muscle wasting Criteria - meeting <75% nutrient needs x >1 mo (severe) - unintentional wt loss x 4 mos (current wt 120lb, UBW 170lb x4 months ago = 29.4% loss/4 mos) Malnutrition Assessment: - will follow labs/electrolytes/BG during NPO Interventions status - if nutrition support initiated, follow for s/ sx refeeding syndrome - if po diet ordered, start w/small amounts full liquid-type textures and liquid supplements - follow GI consult and any plans for surgical intervention Malnutrition Assessment: Goals 1. pt will remain NPO per provider order 2. RDN suggests initiation of PPN base A and monitoring for s/sx refeeding syndrome 3. maintain fluid/electrolyte balance without clinical s/sx dehydration 4. bowel regularity w/o development of diarrhea / constipation Result Diagrams: 05/01/19 06:30 05/02/19 04:55 Assess/Plan/Problems-Billing Assessment: Ms. Callaway is a 43 yo F with PMH of bipolar, PTSD, DVT, recurrent SBO; presented to the ER with abd pain, N/V unable to tolerate PO intake. Patient was recently admitted from 04/16-04/24 for ulcer at stomach anastomosis, possible stricture at anastomosis, severe protein-calorie malnutrition. - Patient Problems (1) Abdominal pain Code(s): R10.9 - UNSPECIFIED ABDOMINAL PAIN Comment: - Multiple recent hospitalizations - CT with no obstruction - EGD on 04/29/19 showing severe ulceration at anastomosis; unable to pass EGD scope to evaluate - Appreciate GI consult; recommends NPO except meds, PPI, no NSAIDS - Appreciate Surgery consult; no surgery at this time, agrees with NPO and TPN - Recommended f/u at [place] with GI as outpatient for repeat EDG in 6-8 weeks - Continue TPN (unclear timeframe) - Conitnue Zofran, morphine, omeprazole, Carafate (2) Anemia Code(s): D64.9 - ANEMIA, UNSPECIFIED Comment: - H&H consistent with baseline from prior admission - Likely secondary to malnutrition - Continue omeprazole (3) Thrombocytopenia Code(s): D69.6 - THROMBOCYTOPENIA, UNSPECIFIED Comment: - Resolved with discontinuation of Lovenox - Sending out HIT antibodies (4) Chronic malnutrition Code(s): E46 - UNSPECIFIED PROTEIN-CALORIE MALNUTRITION Comment: - Chronic, severe - NPO d/t severity of ulceration and GI recommendations - Continue TPN; appreciate input from Dietary and Pharmacy (5) Bipolar disorder Code(s): F31.9 - BIPOLAR DISORDER, UNSPECIFIED Comment: - Continue bupropion, Seroquel, hydroxyzine (6) History of DVT (deep vein thrombosis) Code(s): Z86.718 - PERSONAL HISTORY OF OTHER VENOUS THROMBOSIS AND EMBOLISM Comment: - History of DVT August 2018; occurred during hospitalization at [place], therefore likely provoked - Continue Eliquis (7) Hypothyroidism Code(s): E03.9 - HYPOTHYROIDISM, UNSPECIFIED Comment: - Continue levothyroxine (8) DVT prophylaxis Code(s): Z29.9 - ENCOUNTER FOR PROPHYLACTIC MEASURES, UNSPECIFIED Comment: - Eliquis (9) Full code status Code(s): Z78.9 - OTHER SPECIFIED HEALTH STATUS Comment: Status and Disposition: Inpatient. Anticipate d/c home when medically stable. Unclear how long she will require TPN. Attending: Brittany Castro
[2019-05-02] MEDS: TPN* 24 HR with Dextrose 50% Water* 500 ML, Amino Acid Infusion 10%* 850 ML, Sterile Wa... CENTR SCH ×12 (17:01)
[2019-05-03] MEDS: Morphine INJ* 2 MG/ML 1 ML SYRINGE (TWO MG - NEW SYRINGE VERSION) IV PRN ×7 (00:03→22:59)
[2019-05-03] MEDS: Ondansetron INJ* 2 MG/ML VIAL IV PRN ×4 (00:03→19:15)
[2019-05-03] MEDS: diPHENhydraMINE IV* 50 MG/ML 1 ml VIAL (BENADRYL) IV PRN ×3 (05:52→22:59)
[2019-05-03] MEDS: Levothyroxine TAB* 25 MCG TAB PO SCH (05:52)
[2019-05-03 06:44] LABS: ABS Eosinophils 0.1 10^3/ul (0-0.6); ABS Lymphocytes 1.2 10^3/ul (1.0-4.8); ABS Monocytes 0.3 10^3/ul (0-0.8); ABS Neutrophils 1.2 10^3/ul (1.5-7.7); Eosinophil % 2.2 %; Hematocrit 26 % (35-47); Hemoglobin 8.9 g/dL (12.0-16.0); Lymphocyte % 43.4 %; Mean Corpuscular HGB Conc 34 g/dL (31-36); Mean Corpuscular Hemoglobin 34 pg (27-31); Mean Corpuscular Volume 99 fL (80-97); Mean Platelet Volume 8.2 fL (7.4-10.4); Nucleated Red Blood Cells % 0.3; Platelet Count 207 10^3/uL (150-450); Red Blood Count 2.64 10^6 /uL (3.70-4.87); Red Cell Distribution Width 21 % (10-15); White Blood Count 2.9 10^3/uL (3.5-10.8)
[2019-05-03 06:58] LABS: BUN/Creatinine Ratio 22.2 (8-20); Blood Urea Nitrogen 10 mg/dL (6-24); CO2 Carbon Dioxide 29 mmol/L (22-32); Calcium 7.8 mg/dL (8.6-10.3); EGFR African American 184.9 (>60); EGFR Non-African American 152.8 (>60); Glucose 89 mg/dL (70-100); Magnesium 1.8 mg/dL (1.9-2.7); Phosphorus 3.7 mg/dL (2.5-5.0); Potassium 4.4 mmol/L (3.5-5.0); Sodium 141 mmol/L (135-145); Triglycerides 88 mg/dL
[2019-05-03 07:06] LABS: Chloride 112 mmol/L (101-111)
[2019-05-03] MEDS: Gabapentin CAP(*) 300 MG PO SCH ×3 (07:21→20:23)
[2019-05-03] MEDS: Sucralfate SUSP 1 GM/10 ml 10 ML UDC PO SCH ×4 (07:21→20:23)
[2019-05-03] MEDS: QUEtiapine TAB* 100 MG PO SCH ×2 (07:22→20:22)
[2019-05-03] MEDS: Apixaban* 5 MG TAB PO SCH ×2 (07:22→20:22)
[2019-05-03] MEDS: BuPROPion XL* 300 MG TAB.XL PO SCH (07:22)
[2019-05-03] MEDS: CMCS: Omeprazole CAP (NF) 20 MG CAP.DR PO SCH ×2 (07:23→20:23)
[2019-05-03] MEDS ORDERED: Influenza VAC *QUAD* 2019-20* 0.5 ML SYRINGE IM ONE (09:00)
--- NOTE | 2019-05-03 09:28 | PN ---
Subjective Date of Service: 05/03/19 Interval History: Ms. Callaway is feeling about the same today. Abdominal pain remains a 7/10, but tolerable. No nausea. She ambulated around the unit twice yesterday. Feels weak, but is motivated to regain some strength. Denies CP, SOB. Feels as though she may need to have a BM. No concerns from nursing. Family History: Unchanged from Admission Social History: Unchanged from Admission Past Medical History: Unchanged from Admission Objective Active Medications: Apixaban (Eliquis*) 5 mg PO BID [facility]LA Bupropion HCl (Bupropion Xl*) 300 mg PO DAILY MAK[facility]LA Diphenhydramine HCl (Benadryl Iv*) 12.5 mg IV Q8H PRN ITCHING Gabapentin (Neurontin Cap(*)) 300 mg PO TID MAK[facility] Heparin Sodium (Porcine) (Heparin Flush Picc/Ml/Cvc(*)) 1 - 3 ml FLUSH 0600, 1800 MAKAYLA; Protocol Hydroxyzine HCl (Atarax Tab*) 50 mg PO Q8HR PRN ANXIETY Dextrose 500 ml/ Amino Acids 850 ml/ Sterile Water 150 ml/Fat Emulsion Intravenous 250 ml/ Sodium Chloride 100 meq/Potassium Chloride 50 meq/Potassium Phosphate 15 mmole/Calcium Gluconate 15 meq/Magnesium Sulfate 30 meq/ Multivitamins 10 ml/ Trace Metals 1 ml/ Nutrition ( Parenteral) 1,855.6471 mls @ 77.319 mls/hr CENTR 1700 MAKAYLA Levothyroxine Sodium (Synthroid Tab*) 25 mcg PO 0600 MAK[facility]LA Morphine Sulfate (Morphine Inj (Syringe))*) 2 mg IV Q3H PRN PAIN - MODERATE Omeprazole (Prilosec Cap* (Nf)) 40 mg PO BID MAKAYLA Ondansetron HCl (Zofran Inj*) 4 mg IV Q6H PRN NAUSEA Quetiapine Fumarate (Seroquel Tab*) 100 mg PO BID [facility] Sucralfate (Sucralfate Susp) 1 gm PO QID [facility] Vital Signs - 8 hr 05/03/19 05/03/19 05/03/19 02:22 03:37 03:38 Temperature 97.6 F Pulse Rate 67 Respiratory 16 20 18 Rate Blood Pressure 89/60 (mmHg) O2 Sat by Pulse 100 Oximetry 05/03/19 05/03/19 05/03/19 04:00 04:57 05:52 Temperature Pulse Rate Respiratory 16 18 Rate Blood Pressure 94/60 (mmHg) O2 Sat by Pulse Oximetry 05/03/19 05/03/19 05/03/19 07:13 07:20 07:21 Temperature Pulse Rate Respiratory 16 16 Rate Blood Pressure 89/60 (mmHg) O2 Sat by Pulse Oximetry 05/03/19 05/03/19 05/03/19 07:24 07:28 07:35 Temperature 97.6 F Pulse Rate 70 Respiratory 16 16 16 Rate Blood Pressure (mmHg) O2 Sat by Pulse 100 Oximetry Oxygen Devices in Use Now: None Appearance: Middle-aged female lying in bed in NAD Ears/Nose/Mouth/Throat: Mucous Membranes Moist Neck: NL Appearance and Movements; NL JVP, Trachea Midline Respiratory: Symmetrical Chest Expansion and Respiratory Effort, Clear to Auscultation Cardiovascular: NL Sounds; No Murmurs; No JVD, RRR Abdominal: - - Tender throughout, normoactive BS Extremities: No Edema Neurological: Alert and Oriented x 3 Lines/Tubes/Other Access: Clean, Dry and Intact PICC Line Nutrition: Taking PO's - Nutrition: Malnutrition Diagnosis/Plan Malnutrition Assessment by Registered Dietitian: Malnutrition Assessment Clinical Characteristics Chronic,Severe Malnutrition Assessment: - visible and severe clavicular muscle wasting Criteria - meeting <75% nutrient needs x >1 mo (severe) - unintentional wt loss x 4 mos (current wt 120lb, UBW 170lb x4 months ago = 29.4% loss/4 mos) Malnutrition Assessment: - will follow labs/electrolytes/BG during NPO Interventions status - if nutrition support initiated, follow for s/ sx refeeding syndrome - if po diet ordered, start w/small amounts full liquid-type textures and liquid supplements - follow GI consult and any plans for surgical intervention Malnutrition Assessment: Goals 1. pt will remain NPO per provider order 2. RDN suggests initiation of PPN base A and monitoring for s/sx refeeding syndrome 3. maintain fluid/electrolyte balance without clinical s/sx dehydration 4. bowel regularity w/o development of diarrhea / constipation Result Diagrams: 05/03/19 06:00 05/03/19 06:00 Assess/Plan/Problems-Billing Assessment: Ms. Callaway is a 43 yo F with PMH of bipolar, PTSD, DVT, recurrent SBO; presented to the ER with abd pain, N/V unable to tolerate PO intake. Patient was recently admitted from 04/16-04/24 for ulcer at stomach anastomosis, possible stricture at anastomosis, severe protein-calorie malnutrition. - Patient Problems (1) Abdominal pain Code(s): R10.9 - UNSPECIFIED ABDOMINAL PAIN Comment: - Multiple recent hospitalizations - CT with no obstruction - EGD on 04/29/19 showing severe ulceration at anastomosis; unable to pass EGD scope to evaluate - Appreciate GI consult; recommends NPO except meds, PPI, no NSAIDS - Appreciate Surgery consult; no surgery at this time, agrees with NPO and TPN - Recommended f/u at [place] with GI as outpatient for repeat EDG in 6-8 weeks - Continue TPN (unclear timeframe) - Conitnue Zofran, morphine, omeprazole, Carafate (2) Anemia Code(s): D64.9 - ANEMIA, UNSPECIFIED Comment: - H&H consistent with baseline from prior admission - Likely secondary to malnutrition - Continue omeprazole (3) Thrombocytopenia Code(s): D69.6 - THROMBOCYTOPENIA, UNSPECIFIED Comment: - Resolved with discontinuation of Lovenox - Pending HIT antibodies (4) Chronic malnutrition Code(s): E46 - UNSPECIFIED PROTEIN-CALORIE MALNUTRITION Comment: - Chronic, severe - NPO d/t severity of ulceration and GI recommendations - Continue TPN; appreciate input from Dietary and Pharmacy (5) Bipolar disorder Code(s): F31.9 - BIPOLAR DISORDER, UNSPECIFIED Comment: - Continue bupropion, Seroquel, hydroxyzine (6) History of DVT (deep vein thrombosis) Code(s): Z86.718 - PERSONAL HISTORY OF OTHER VENOUS THROMBOSIS AND EMBOLISM Comment: - History of DVT August 2018; occurred during hospitalization at [place], therefore likely provoked - Continue Eliquis (7) Hypothyroidism Code(s): E03.9 - HYPOTHYROIDISM, UNSPECIFIED Comment: - Continue levothyroxine (8) DVT prophylaxis Code(s): Z29.9 - ENCOUNTER FOR PROPHYLACTIC MEASURES, UNSPECIFIED Comment: - Eliquis (9) Full code status Code(s): Z78.9 - OTHER SPECIFIED HEALTH STATUS Comment: Status and Disposition: Inpatient. Anticipate d/c home when medically stable. Unclear how long she will require TPN. Attending: Brittany Castro
[2019-05-03] MEDS: hydrOXYzine HCL TAB* 50 MG PO PRN ×2 (15:08→20:23)
[2019-05-03] MEDS: TPN* 24 HR with Dextrose 50% Water* 500 ML, Amino Acid Infusion 10%* 850 ML, Sterile Wa... CENTR SCH ×12 (17:15)
[2019-05-04] MEDS: Morphine INJ* 2 MG/ML 1 ML SYRINGE (TWO MG - NEW SYRINGE VERSION) IV PRN ×4 (02:58→20:45)
[2019-05-04] MEDS: Ondansetron INJ* 2 MG/ML VIAL IV PRN ×3 (02:58→17:22)
[2019-05-04] MEDS: Levothyroxine TAB* 25 MCG TAB PO SCH (05:36)
[2019-05-04 06:33] LABS: BUN/Creatinine Ratio 23.5 (8-20); Calcium 7.9 mg/dL (8.6-10.3); EGFR Non-African American 132.2 (>60); Magnesium 1.5 mg/dL (1.9-2.7); Phosphorus 4.1 mg/dL (2.5-5.0); Potassium 4.1 mmol/L (3.5-5.0)
[2019-05-04] MEDS ORDERED: Magnesium Sulfate IV* 3 GM in NS 0.9% 100 ML* 100 ML IVPB ONE (07:30)
[2019-05-04] MEDS: Sucralfate SUSP 1 GM/10 ml 10 ML UDC PO SCH ×4 (08:16→20:44)
[2019-05-04] MEDS: QUEtiapine TAB* 100 MG PO SCH ×2 (08:17→20:44)
[2019-05-04] MEDS: Apixaban* 5 MG TAB PO SCH ×2 (08:17→20:44)
[2019-05-04] MEDS: Gabapentin CAP(*) 300 MG PO SCH ×3 (08:17→20:44)
[2019-05-04] MEDS: BuPROPion XL* 300 MG TAB.XL PO SCH (08:18)
[2019-05-04] MEDS: CMCS: Omeprazole CAP (NF) 20 MG CAP.DR PO SCH ×2 (08:29→20:43)
[2019-05-04] MEDS ORDERED: TPN* 24 HR with Dextrose 50% Water* 500 ML, Amino Acid Infusion 10%* 850 ML, Sterile Wa... CENTR SCH ×24 (08:56→17:00)
[2019-05-04] MEDS: diPHENhydraMINE IV* 50 MG/ML 1 ml VIAL (BENADRYL) IV PRN ×2 (09:47→17:22)
[2019-05-04] MEDS ORDERED: Lactated Ringers 1000 ML Bag* 1,000 ML IV SCH (14:00)
--- NOTE | 2019-05-04 14:21 | PN ---
Subjective Date of Service: 05/04/19 Interval History: Ms. Callaway is feeling worse today. Her abdominal pain is worse and she has not been able to receive morphine d/t hypotension. She continues to have nausea , but tolerating oral meds. Denies CP, SOB. Nursing reports hypotension. Family History: Unchanged from Admission Social History: Unchanged from Admission Past Medical History: Unchanged from Admission Objective Active Medications: Apixaban (Eliquis*) 5 mg PO BID [facility] Bupropion HCl (Bupropion Xl*) 300 mg PO DAILY [facility] Diphenhydramine HCl (Benadryl Iv*) 12.5 mg IV Q8H PRN ITCHING Gabapentin (Neurontin Cap(*)) 300 mg PO TID [facility] Heparin Sodium (Porcine) (Heparin Flush Picc/Ml/Cvc(*)) 1 - 3 ml FLUSH 0600, 1800 MAKAYLA; Protocol Hydroxyzine HCl (Atarax Tab*) 50 mg PO Q8HR PRN ANXIETY Dextrose 500 ml/ Amino Acids 850 ml/ Sterile Water 150 ml/Fat Emulsion Intravenous 250 ml/ Sodium Chloride 100 meq/Potassium Chloride 50 meq/Potassium Phosphate 15 mmole/Calcium Gluconate 15 meq/Magnesium Sulfate 30 meq/ Multivitamins 10 ml/ Trace Metals 1 ml/ Nutrition ( Parenteral) 1,855.6471 mls @ 77.319 mls/hr CENTR 1700 MAKAYLA Dextrose 500 ml/ Amino Acids 850 ml/ Sterile Water 150 ml/Fat Emulsion Intravenous 250 ml/ Sodium Chloride 100 meq/Potassium Chloride 50 meq/Potassium Phosphate 15 mmole/Calcium Gluconate 15 meq/Magnesium Sulfate 20 meq/ Multivitamins 10 ml/ Trace Metals 1 ml/ Nutrition ( Parenteral) 1,853.1841 mls @ 77.216 mls/hr CENTR Q24H [facility] Lactated Ringer's (Lactated Ringers 1000 Ml Bag*) 1,000 mls @ 150 mls/hr IV PER RATE [facility] Levothyroxine Sodium (Synthroid Tab*) 25 mcg PO 0600 MAK[facility]LA Morphine Sulfate (Morphine Inj (Syringe))*) 2 mg IV Q3H PRN PAIN - MODERATE Omeprazole (Prilosec Cap* (Nf)) 40 mg PO BID [facility] Ondansetron HCl (Zofran Inj*) 4 mg IV Q6H PRN NAUSEA Quetiapine Fumarate (Seroquel Tab*) 100 mg PO BID [facility] Sucralfate (Sucralfate Susp) 1 gm PO QID [facility] Vital Signs - 8 hr 05/04/19 05/04/19 05/04/19 06:15 07:25 08:17 Temperature 98.5 F Pulse Rate 73 Respiratory 16 16 Rate Blood Pressure 85/56 82/52 (mmHg) O2 Sat by Pulse 100 Oximetry 05/04/19 05/04/19 13:23 13:43 Temperature Pulse Rate Respiratory 18 Rate Blood Pressure 72/44 (mmHg) O2 Sat by Pulse Oximetry Oxygen Devices in Use Now: None Appearance: Middle-aged female lying in bed in NAD Ears/Nose/Mouth/Throat: Mucous Membranes Moist Neck: NL Appearance and Movements; NL JVP Respiratory: Symmetrical Chest Expansion and Respiratory Effort, Clear to Auscultation Cardiovascular: NL Sounds; No Murmurs; No JVD, RRR Abdominal: - - Soft, tender throughout Extremities: No Edema Neurological: Alert and Oriented x 3 Lines/Tubes/Other Access: Clean, Dry and Intact Peripheral IV Nutrition: Taking PO's - Nutrition: Malnutrition Diagnosis/Plan Malnutrition Assessment by Registered Dietitian: Malnutrition Assessment Clinical Characteristics Chronic,Severe Malnutrition Assessment: - visible and severe clavicular muscle wasting Criteria - meeting <75% nutrient needs x >1 mo (severe) - unintentional wt loss x 4 mos (current wt 120lb, UBW 170lb x4 months ago = 29.4% loss/4 mos) Malnutrition Assessment: - will follow labs/electrolytes/BG during NPO Interventions status - if nutrition support initiated, follow for s/ sx refeeding syndrome - if po diet ordered, start w/small amounts full liquid-type textures and liquid supplements - follow GI consult and any plans for surgical intervention Malnutrition Assessment: Goals 1. pt will remain NPO per provider order 2. RDN suggests initiation of PPN base A and monitoring for s/sx refeeding syndrome 3. maintain fluid/electrolyte balance without clinical s/sx dehydration 4. bowel regularity w/o development of diarrhea / constipation Result Diagrams: 05/03/19 06:00 05/04/19 06:05 Assess/Plan/Problems-Billing Assessment: Ms. Callaway is a 43 yo F with PMH of bipolar, PTSD, DVT, recurrent SBO; presented to the ER with abd pain, N/V unable to tolerate PO intake. Patient was recently admitted from 04/16-04/24 for ulcer at stomach anastomosis, possible stricture at anastomosis, severe protein-calorie malnutrition. - Patient Problems (1) Gastrojejunal ulcer Code(s): K28.9 - GASTROJEJUNAL ULCER, UNSP ACUTE OR CHR, W/O HEMOR OR PERF Comment: - Multiple recent hospitalizations - CT with no obstruction - EGD on 04/29/19 showing severe ulceration at anastomosis; unable to pass EGD scope to evaluate - Appreciate GI consult; recommends NPO except meds, PPI, no NSAIDS - Appreciate Surgery consult; no surgery at this time, agrees with NPO and TPN - Recommended f/u at [place] with GI as outpatient for repeat EDG in 6-8 weeks - Continue TPN; goal per GI is albumin >3.2 prior to any further intervention - Conitnue Zofran, morphine, omeprazole, Carafate (2) Anemia Code(s): D64.9 - ANEMIA, UNSPECIFIED Comment: - H&H consistent with baseline from prior admission - Likely secondary to malnutrition - Continue omeprazole (3) Thrombocytopenia Code(s): D69.6 - THROMBOCYTOPENIA, UNSPECIFIED Comment: - Resolved with discontinuation of Lovenox - Pending HIT antibodies (4) Chronic malnutrition Code(s): E46 - UNSPECIFIED PROTEIN-CALORIE MALNUTRITION Comment: - Chronic, severe - NPO d/t severity of ulceration and GI recommendations - Continue TPN; appreciate input from Dietary and Pharmacy (5) Bipolar disorder Code(s): F31.9 - BIPOLAR DISORDER, UNSPECIFIED Comment: - Continue bupropion, Seroquel, hydroxyzine (6) History of DVT (deep vein thrombosis) Code(s): Z86.718 - PERSONAL HISTORY OF OTHER VENOUS THROMBOSIS AND EMBOLISM Comment: - History of DVT August 2018; occurred during hospitalization at [place], therefore likely provoked - Continue Eliquis (7) Hypothyroidism Code(s): E03.9 - HYPOTHYROIDISM, UNSPECIFIED Comment: - Continue levothyroxine (8) DVT prophylaxis Code(s): Z29.9 - ENCOUNTER FOR PROPHYLACTIC MEASURES, UNSPECIFIED Comment: - Eliquis (9) Full code status Code(s): Z78.9 - OTHER SPECIFIED HEALTH STATUS Comment: Status and Disposition: Inpatient. Anticipate d/c home when medically stable. Unclear how long she will require TPN. Attending: Desirae Collazo
[2019-05-04] MEDS: hydrOXYzine HCL TAB* 50 MG PO PRN (19:42)
[2019-05-04] MEDS ORDERED: Lorazepam PYXIS KEY PRN (22:49)
[2019-05-04] MEDS: LORazepam INJ* 2 MG/ML 1 ML VIAL IV PUSH PRN (23:23)
[2019-05-05] MEDS: diPHENhydraMINE IV* 50 MG/ML 1 ml VIAL (BENADRYL) IV PRN ×3 (00:30→17:12)
[2019-05-05] MEDS: Morphine INJ* 2 MG/ML 1 ML SYRINGE (TWO MG - NEW SYRINGE VERSION) IV PRN ×6 (00:35→21:14)
[2019-05-05] MEDS: Levothyroxine TAB* 25 MCG TAB PO SCH (05:36)
[2019-05-05 06:19] LABS: Albumin 2.4 g/dL (3.2-5.2); BUN/Creatinine Ratio 20.4 (8-20); Calcium 8.3 mg/dL (8.6-10.3); EGFR African American 149.8 (>60); EGFR Non-African American 123.8 (>60); Magnesium 1.7 mg/dL (1.9-2.7); Phosphorus 5.7 mg/dL (2.5-5.0); Potassium 4.4 mmol/L (3.5-5.0)
[2019-05-05] MEDS: Ondansetron INJ* 2 MG/ML VIAL IV PRN ×2 (07:27→17:21)
[2019-05-05] MEDS: Gabapentin CAP(*) 300 MG PO SCH ×3 (08:13→21:15)
[2019-05-05] MEDS: Sucralfate SUSP 1 GM/10 ml 10 ML UDC PO SCH ×4 (08:13→21:15)
[2019-05-05] MEDS: QUEtiapine TAB* 100 MG PO SCH ×2 (08:14→21:16)
[2019-05-05] MEDS: BuPROPion XL* 300 MG TAB.XL PO SCH (08:14)
[2019-05-05] MEDS: CMCS: Omeprazole CAP (NF) 20 MG CAP.DR PO SCH ×2 (08:15→21:15)
[2019-05-05] MEDS: Apixaban* 5 MG TAB PO SCH ×2 (08:15→21:16)
[2019-05-05] MEDS ORDERED: Magnesium Sulfate 2 GM IV* 2 GM/50 ML BAG IVPB ONE (11:18)
--- NOTE | 2019-05-05 13:54 | PN ---
Subjective Date of Service: 05/05/19 Interval History: Ms. Callaway is not feeling any better today. She had a panic attack last night. Ativan was helpful, but she would like more. Abdominal pain is consistently an 8/10. Morphine helps a little. Denies CP or SOB. Still feeling nauseous. No interest in eating. No concerns from nursing. Family History: Unchanged from Admission Social History: Unchanged from Admission Past Medical History: Unchanged from Admission Objective Active Medications: Apixaban (Eliquis*) 5 mg PO BID [facility] Bupropion HCl (Bupropion Xl*) 300 mg PO DAILY [facility] Diphenhydramine HCl (Benadryl Iv*) 12.5 mg IV Q8H PRN ITCHING Gabapentin (Neurontin Cap(*)) 300 mg PO TID [facility] Heparin Sodium (Porcine) (Heparin Flush Picc/Ml/Cvc(*)) 1 - 3 ml FLUSH 0600, 1800 MAKAYLA; Protocol Hydroxyzine HCl (Atarax Tab*) 50 mg PO Q8HR PRN ANXIETY Dextrose 500 ml/ Amino Acids 850 ml/ Sterile Water 150 ml/Fat Emulsion Intravenous 250 ml/ Sodium Chloride 100 meq/Potassium Chloride 50 meq/Potassium Phosphate 15 mmole/Calcium Gluconate 15 meq/Magnesium Sulfate 20 meq/ Multivitamins 10 ml/ Trace Metals 1 ml/ Nutrition ( Parenteral) 1,853.1841 mls @ 77.216 mls/hr CENTR Q24H MAKAYLA Dextrose 500 ml/ Amino Acids 850 ml/ Sterile Water 150 ml/Fat Emulsion Intravenous 250 ml/ Sodium Chloride 100 meq/Potassium Chloride 50 meq/Potassium Phosphate 10 mmole/Calcium Gluconate 15 meq/Magnesium Sulfate 20 meq/ Multivitamins 10 ml/ Trace Metals 1 ml/ Nutrition ( Parenteral) 1,851.5174 mls @ 77.147 mls/hr CENTR 1700 MAKAYLA; Protocol Levothyroxine Sodium (Synthroid Tab*) 25 mcg PO 0600 MAKAYLA Lorazepam (Ativan Inj*) 0.5 mg IV PUSH Q4H PRN ANXIETY Morphine Sulfate (Morphine Inj (Syringe))*) 2 mg IV Q3H PRN PAIN - MODERATE Omeprazole (Prilosec Cap* (Nf)) 40 mg PO BID [facility]LA Ondansetron HCl (Zofran Inj*) 4 mg IV Q6H PRN NAUSEA Quetiapine Fumarate (Seroquel Tab*) 100 mg PO BID [facility] Sucralfate (Sucralfate Susp) 1 gm PO QID [facility] Vital Signs - 8 hr 05/05/19 05/05/19 05/05/19 08:00 08:08 08:09 Temperature 97.9 F Pulse Rate 61 Respiratory 14 16 16 Rate Blood Pressure 80/57 (mmHg) O2 Sat by Pulse 100 Oximetry Oxygen Devices in Use Now: None Appearance: Middle-aged female lying in bed in NAD Ears/Nose/Mouth/Throat: Mucous Membranes Moist Neck: NL Appearance and Movements; NL JVP, Trachea Midline Respiratory: Symmetrical Chest Expansion and Respiratory Effort, Clear to Auscultation Cardiovascular: NL Sounds; No Murmurs; No JVD, RRR Abdominal: - - Soft, tender throughout, normoactive BS Extremities: No Edema Neurological: Alert and Oriented x 3 Lines/Tubes/Other Access: Clean, Dry and Intact PICC Line - Nutrition: Malnutrition Diagnosis/Plan Malnutrition Assessment by Registered Dietitian: Malnutrition Assessment Clinical Characteristics Chronic,Severe Malnutrition Assessment: - visible and severe clavicular muscle wasting Criteria - meeting <75% nutrient needs x >1 mo (severe) - unintentional wt loss x 4 mos (current wt 120lb, UBW 170lb x4 months ago = 29.4% loss/4 mos) Malnutrition Assessment: - will follow labs/electrolytes/BG during NPO Interventions status - if nutrition support initiated, follow for s/ sx refeeding syndrome - if po diet ordered, start w/small amounts full liquid-type textures and liquid supplements - follow GI consult and any plans for surgical intervention Malnutrition Assessment: Goals 1. pt will remain NPO per provider order 2. RDN suggests initiation of PPN base A and monitoring for s/sx refeeding syndrome 3. maintain fluid/electrolyte balance without clinical s/sx dehydration 4. bowel regularity w/o development of diarrhea / constipation Result Diagrams: 05/03/19 06:00 05/05/19 05:49 Assess/Plan/Problems-Billing Assessment: Ms. Callaway is a 43 yo F with PMH of bipolar, PTSD, DVT, recurrent SBO; presented to the ER with abd pain, N/V unable to tolerate PO intake. Patient was recently admitted from 04/16-04/24 for ulcer at stomach anastomosis, possible stricture at anastomosis, severe protein-calorie malnutrition. - Patient Problems (1) Gastrojejunal ulcer Code(s): K28.9 - GASTROJEJUNAL ULCER, UNSP ACUTE OR CHR, W/O HEMOR OR PERF Comment: - Multiple recent hospitalizations - CT with no obstruction - EGD on 04/29/19 showing severe ulceration at anastomosis; unable to pass EGD scope to evaluate - Appreciate GI consult; recommends NPO except meds, PPI, no NSAIDS - Appreciate Surgery consult; no surgery at this time, agrees with NPO and TPN - Recommended f/u at [place] with GI as outpatient for repeat EDG in 6-8 weeks - Continue TPN; goal per GI is albumin >3.2 prior to any further intervention - Outpatient TPN not an option per Case Management as the patient does not have insurance - Continue Zofran, morphine, omeprazole, Carafate (2) Hypomagnesemia Code(s): E83.42 - HYPOMAGNESEMIA Comment: - Replete again today - TPN mag dosing is at recommended max - Recheck in AM (3) Anemia Code(s): D64.9 - ANEMIA, UNSPECIFIED Comment: - H&H consistent with baseline from prior admission - Likely secondary to malnutrition - Continue omeprazole (4) Thrombocytopenia Code(s): D69.6 - THROMBOCYTOPENIA, UNSPECIFIED Comment: - Resolved with discontinuation of Lovenox - Pending HIT antibodies (5) Chronic malnutrition Code(s): E46 - UNSPECIFIED PROTEIN-CALORIE MALNUTRITION Comment: - Chronic, severe - NPO d/t severity of ulceration and GI recommendations - Continue TPN; appreciate input from Dietary and Pharmacy (6) Bipolar disorder Code(s): F31.9 - BIPOLAR DISORDER, UNSPECIFIED Comment: - Continue bupropion, Seroquel, hydroxyzine (7) History of DVT (deep vein thrombosis) Code(s): Z86.718 - PERSONAL HISTORY OF OTHER VENOUS THROMBOSIS AND EMBOLISM Comment: - History of DVT August 2018; occurred during hospitalization at [place], therefore likely provoked; question if she still needs AC as she has been on it for 6 months at this point - Continue Eliquis (8) Hypothyroidism Code(s): E03.9 - HYPOTHYROIDISM, UNSPECIFIED Comment: - Continue levothyroxine (9) DVT prophylaxis Code(s): Z29.9 - ENCOUNTER FOR PROPHYLACTIC MEASURES, UNSPECIFIED Comment: - Eliquis (10) Full code status Code(s): Z78.9 - OTHER SPECIFIED HEALTH STATUS Comment: Status and Disposition: Inpatient. Unclear how long she will require TPN, but will need to remain in the hospital while on TPN d/t lack of insurance. Attending: Desirae Collazo
[2019-05-05] MEDS: TPN CENTRAL STANDARD BASE A CENTR SCH ×12 (17:14)
[2019-05-05] MEDS: LORazepam INJ* 2 MG/ML 1 ML VIAL IV PUSH PRN (21:16)
[2019-05-06] MEDS: diPHENhydraMINE IV* 50 MG/ML 1 ml VIAL (BENADRYL) IV PRN ×3 (05:24→23:46)
[2019-05-06] MEDS: Ondansetron INJ* 2 MG/ML VIAL IV PRN ×3 (05:25→23:45)
[2019-05-06] MEDS: Morphine INJ* 2 MG/ML 1 ML SYRINGE (TWO MG - NEW SYRINGE VERSION) IV PRN ×6 (05:26→23:46)
[2019-05-06] MEDS: LORazepam INJ* 2 MG/ML 1 ML VIAL IV PUSH PRN ×5 (05:26→23:45)
[2019-05-06] MEDS: Levothyroxine TAB* 25 MCG TAB PO SCH (05:27)
[2019-05-06 06:21] LABS: BUN/Creatinine Ratio 24.2 (8-20); Calcium 7.8 mg/dL (8.6-10.3); EGFR African American 118.8 (>60); EGFR Non-African American 98.2 (>60); Magnesium 1.5 mg/dL (1.9-2.7); Phosphorus 4.2 mg/dL (2.5-5.0); Potassium 3.8 mmol/L (3.5-5.0)
[2019-05-06] MEDS ORDERED: Magnesium Sulfate IV* 3 GM in NS 0.9% 100 ML* 100 ML IVPB ONE (07:25)
[2019-05-06] MEDS: BuPROPion XL* 300 MG TAB.XL PO SCH (09:55)
[2019-05-06] MEDS: Sucralfate SUSP 1 GM/10 ml 10 ML UDC PO SCH ×4 (09:55→21:39)
[2019-05-06] MEDS: Gabapentin CAP(*) 300 MG PO SCH ×3 (09:55→21:38)
[2019-05-06] MEDS: CMCS: Omeprazole CAP (NF) 20 MG CAP.DR PO SCH ×2 (09:56→21:38)
[2019-05-06] MEDS: QUEtiapine TAB* 100 MG PO SCH ×2 (09:56→21:39)
[2019-05-06] MEDS: Apixaban* 5 MG TAB PO SCH (09:56)
[2019-05-06] MEDS ORDERED: NS 0.9% 1000 ML** 1,000 ML IV ONE (14:20)
--- NOTE | 2019-05-06 16:03 | PN ---
Subjective Date of Service: 05/06/19 Interval History: Patient continues to have abdominal pain and nausea. Patient is very concerned about the intermediate accountant plan and the need for continued IV access and wants to discuss a port. Patient also has no LE edema or calf pain and has completed over 6 months of Eliquis. Patient complains of chronic low back pain which is better with ambulation. Patient denies F/C, CP, SOB, dizziness, OCHOA, or other pain. Family History: Unchanged from Admission Social History: Unchanged from Admission Past Medical History: Unchanged from Admission Objective Active Medications: Apixaban (Eliquis*) 5 mg PO BID [facility] Last Admin: 05/06/19 09:56 Dose: 5 mg Bupropion HCl (Bupropion Xl*) 300 mg PO DAILY [facility] Last Admin: 05/06/19 09:55 Dose: 300 mg Diphenhydramine HCl (Benadryl Iv*) 12.5 mg IV Q8H PRN PRN Reason: ITCHING Last Admin: 05/06/19 15:48 Dose: 12.5 mg Gabapentin (Neurontin Cap(*)) 300 mg PO TID [facility] Last Admin: 05/06/19 15:26 Dose: 300 mg Heparin Sodium (Porcine) (Heparin Flush Picc/Ml/Cvc(*)) 1 - 3 ml FLUSH 0600, 1800 [facility]; Protocol Last Admin: 05/06/19 05:27 Dose: 1 ml Hydroxyzine HCl (Atarax Tab*) 50 mg PO Q8HR PRN PRN Reason: .ANXIETY Last Admin: 05/04/19 19:42 Dose: 50 mg Dextrose 500 ml/ Amino Acids 850 ml/ Sterile Water 150 ml/Fat Emulsion Intravenous 250 ml/ Sodium Chloride 100 meq/Potassium Chloride 50 meq/Potassium Phosphate 10 mmole/Calcium Gluconate 15 meq/Magnesium Sulfate 20 meq/ Multivitamins 10 ml/ Trace Metals 1 ml/ Nutrition ( Parenteral) 1,851.5174 mls @ 77.147 mls/hr CENTR 1700 [facility]; Protocol Last Admin: 05/05/19 17:14 Dose: 77.147 mls/hr Levothyroxine Sodium (Synthroid Tab*) 25 mcg PO 0600 [facility] Last Admin: 05/06/19 05:27 Dose: 25 mcg Lorazepam (Ativan Inj*) 0.5 mg IV PUSH Q4H PRN PRN Reason: ANXIETY Last Admin: 05/06/19 15:26 Dose: 0.5 mg Miscellaneous (Ativan Pyxis Cabrera) 1 ea N/A .ATIVAN IV CABRERA PRN PRN Reason: PYXIS CABRERA Morphine Sulfate (Morphine Inj (Syringe))*) 2 mg IV Q3H PRN PRN Reason: PAIN - MODERATE Last Admin: 05/06/19 15:24 Dose: 2 mg Omeprazole (Prilosec Cap* (Nf)) 40 mg PO BID [facility] Last Admin: 05/06/19 09:56 Dose: 40 mg Ondansetron HCl (Zofran Inj*) 4 mg IV Q6H PRN PRN Reason: NAUSEA Last Admin: 05/06/19 15:26 Dose: 4 mg Quetiapine Fumarate (Seroquel Tab*) 100 mg PO BID [facility] Last Admin: 05/06/19 09:56 Dose: 100 mg Sucralfate (Sucralfate Susp) 1 gm PO QID [facility] Last Admin: 05/06/19 09:55 Dose: 1 gm Vital Signs - 8 hr 05/06/19 05/06/19 05/06/19 09:53 09:55 10:40 Temperature Pulse Rate Respiratory 16 16 16 Rate Blood Pressure (mmHg) O2 Sat by Pulse Oximetry 05/06/19 05/06/19 05/06/19 10:41 10:53 11:41 Temperature Pulse Rate Respiratory 16 18 18 Rate Blood Pressure (mmHg) O2 Sat by Pulse Oximetry 05/06/19 05/06/19 05/06/19 11:43 11:55 15:21 Temperature 98.6 F Pulse Rate 117 Respiratory 18 16 14 Rate Blood Pressure 90/65 (mmHg) O2 Sat by Pulse 100 Oximetry 05/06/19 05/06/19 05/06/19 15:24 15:26 15:48 Temperature Pulse Rate Respiratory 16 16 16 Rate Blood Pressure (mmHg) O2 Sat by Pulse Oximetry Oxygen Devices in Use Now: None Appearance: Patient is a 43yo female who appears older than stated age and is sitting in the bed in [facility]. Eyes: No Scleral Icterus, PERRLA Ears/Nose/Mouth/Throat: NL Teeth, Lips, Gums, Clear Oropharnyx, Mucous Membranes Moist Neck: NL Appearance and Movements; NL JVP, Trachea Midline Respiratory: Symmetrical Chest Expansion and Respiratory Effort, Clear to Auscultation Cardiovascular: NL Sounds; No Murmurs; No JVD, RRR, No Edema Abdominal: No Hepatosplenomegaly, - - Tender to palpation throughout. Lymphatic: No Cervical Adenopathy Extremities: No Edema, No Clubbing, Cyanosis Skin: No Rash or Ulcers, No Nodules or Sclerosis Neurological: Alert and Oriented x 3, NL Sensation, NL Gait, NL Muscle Strength and Tone, - - CN II-XII intact. - Nutrition: Malnutrition Diagnosis/Plan Malnutrition Assessment by Registered Dietitian: Malnutrition Assessment Clinical Characteristics Chronic,Severe Malnutrition Assessment: - visible and severe clavicular muscle wasting Criteria - meeting <75% nutrient needs x >1 mo (severe) - unintentional wt loss x 4 mos (current wt 120lb, UBW 170lb x4 months ago = 29.4% loss/4 mos) Malnutrition Assessment: - will follow labs/electrolytes/BG during NPO Interventions status - if nutrition support initiated, follow for s/ sx refeeding syndrome - if po diet ordered, start w/small amounts full liquid-type textures and liquid supplements - follow GI consult and any plans for surgical intervention Malnutrition Assessment: Goals 1. pt will remain NPO per provider order 2. RDN suggests initiation of PPN base A and monitoring for s/sx refeeding syndrome 3. maintain fluid/electrolyte balance without clinical s/sx dehydration 4. bowel regularity w/o development of diarrhea / constipation Result Diagrams: 05/03/19 06:00 05/06/19 05:50 Microbiology and Other Data: Microbiology 04/28/19 00:15 Nasal Screen MRSA (PCR) - Final Nasal Mrsa Not Detected Assess/Plan/Problems-Billing Assessment: Ms. Callaway is a 43 yo F with PMH of bipolar, PTSD, DVT, recurrent SBO; presented to the ER with abd pain, N/V unable to tolerate PO intake. Patient was recently admitted from 04/16-04/24 for ulcer at stomach anastomosis, possible stricture at anastomosis, severe protein-calorie malnutrition and is improving slowly on TPN. - Patient Problems (1) Gastrojejunal ulcer Current Visit: Yes Status: Acute Code(s): K28.9 - GASTROJEJUNAL ULCER, UNSP ACUTE OR CHR, W/O HEMOR OR PERF SNOMED Code(s): 38835839 Comment: - Multiple recent hospitalizations - CT with no obstruction, but concern for almost total obstruction at Anastomosis site. - EGD on 04/29/19 showing severe ulceration at anastomosis; unable to pass EGD scope to evaluate - Appreciate GI consult; recommends NPO except meds, PPI, no NSAIDS - Appreciate Surgery consult; no surgery at this time, agrees with NPO and TPN - Recommended f/u at [facility] with GI as outpatient for repeat EGD in 6-8 weeks - Continue TPN until symptoms nakul and is able to tolerate adequate oral intake. - Outpatient TPN not an option per Case Management as the patient does not have insurance - Continue Zofran, morphine, omeprazole, Carafate (2) Chronic malnutrition Current Visit: No Status: Acute Code(s): E46 - UNSPECIFIED PROTEIN-CALORIE MALNUTRITION SNOMED Code(s): 8411618 Comment: - Chronic, severe - NPO d/t severity of ulceration and GI recommendations - Continue TPN; appreciate input from Dietary and Pharmacy (3) Hypomagnesemia Current Visit: Yes Status: Acute Code(s): E83.42 - HYPOMAGNESEMIA SNOMED Code(s): 360733433 Comment: - Replete again today - TPN mag dosing is at recommended max - Recheck in AM (4) Thrombocytopenia Current Visit: Yes Status: Acute Code(s): D69.6 - THROMBOCYTOPENIA, UNSPECIFIED SNOMED Code(s): 911787033 Comment: - Only one reading. - Natural History not very concerning for HIT - Resume Lovenox and Monitor. (5) Anemia Current Visit: No Status: Acute Code(s): D64.9 - ANEMIA, UNSPECIFIED SNOMED Code(s): 501447787 Comment: - H&H consistent with baseline from prior admission - Likely secondary to malnutrition - Continue omeprazole (6) Bipolar disorder Current Visit: No Status: Acute Code(s): F31.9 - BIPOLAR DISORDER, UNSPECIFIED SNOMED Code(s): 96420992 Comment: - Continue bupropion, Seroquel, hydroxyzine (7) History of DVT (deep vein thrombosis) Current Visit: No Status: Acute Code(s): Z86.718 - PERSONAL HISTORY OF OTHER VENOUS THROMBOSIS AND EMBOLISM SNOMED Code(s): 915284291 Comment: - History of DVT August 2018 - No residual clot, stop Eliquis due to DVT being provoked and start lovenox low dose. (8) Hypothyroidism Current Visit: No Status: Acute Code(s): E03.9 - HYPOTHYROIDISM, UNSPECIFIED SNOMED Code(s): 89525881 Comment: - Continue levothyroxine (9) Leukopenia Current Visit: No Status: Acute Code(s): D72.819 - DECREASED WHITE BLOOD CELL COUNT, UNSPECIFIED SNOMED Code(s): 90855535 Comment: - Chronic, Likely due to malnutrition - May need Heme/Onc consult and bone marrow biopsy if persistent. (10) Full code status Current Visit: No Status: Acute Code(s): Z78.9 - OTHER SPECIFIED HEALTH STATUS SNOMED Code(s): 494566148 Comment: (11) DVT prophylaxis Current Visit: No Status: Acute Code(s): Z29.9 - ENCOUNTER FOR PROPHYLACTIC MEASURES, UNSPECIFIED SNOMED Code(s): 422980463 Comment: - DVT prophylaxis dose lovenox in AM. Status and Disposition: Inpatient. Unclear how long she will require TPN, May be able to arrange home TPN in the near future.
[2019-05-06] MEDS: TPN CENTRAL STANDARD BASE A CENTR SCH ×12 (17:45)
[2019-05-07] MEDS: LORazepam INJ* 2 MG/ML 1 ML VIAL IV PUSH PRN ×4 (05:20→18:40)
[2019-05-07] MEDS: Morphine INJ* 2 MG/ML 1 ML SYRINGE (TWO MG - NEW SYRINGE VERSION) IV PRN ×5 (05:21→21:14)
[2019-05-07] MEDS: Levothyroxine TAB* 25 MCG TAB PO SCH (05:22)
[2019-05-07 06:09] LABS: ABS Lymphocytes 1.1 10^3/ul (1.0-4.8); ABS Monocytes 0.3 10^3/ul (0-0.8); ABS Neutrophils 1.3 10^3/ul (1.5-7.7); Eosinophil % 1.6 %; Hematocrit 23 % (35-47); Hemoglobin 7.7 g/dL (12.0-16.0); Lymphocyte % 39.4 %; Mean Corpuscular HGB Conc 33 g/dL (31-36); Mean Corpuscular Hemoglobin 33 pg (27-31); Mean Corpuscular Volume 100 fL (80-97); Mean Platelet Volume 8.7 fL (7.4-10.4); Nucleated Red Blood Cells % 0.1; Platelet Count 159 10^3/uL (150-450); Red Blood Count 2.33 10^6 /uL (3.70-4.87); Red Cell Distribution Width 20 % (10-15); White Blood Count 2.7 10^3/uL (3.5-10.8)
[2019-05-07 06:23] LABS: BUN/Creatinine Ratio 29.4 (8-20); Calcium 7.5 mg/dL (8.6-10.3); EGFR Non-African American 132.2 (>60); Magnesium 1.6 mg/dL (1.9-2.7); Potassium 3.9 mmol/L (3.5-5.0)
[2019-05-07] MEDS ORDERED: Magnesium Sulfate IV* 3 GM in NS 0.9% 100 ML* 100 ML IVPB ONE (06:50)
[2019-05-07] MEDS ORDERED: Enoxaparin(*) 40 MG/0.4 ML SYR SUBCUT SCH (08:00)
[2019-05-07] MEDS: Ondansetron INJ* 2 MG/ML VIAL IV PRN ×2 (10:05→18:40)
[2019-05-07] MEDS: Gabapentin CAP(*) 300 MG PO SCH ×3 (10:06→21:29)
[2019-05-07] MEDS: diPHENhydraMINE IV* 50 MG/ML 1 ml VIAL (BENADRYL) IV PRN ×2 (10:06→18:41)
[2019-05-07] MEDS: CMCS: Omeprazole CAP (NF) 20 MG CAP.DR PO SCH ×2 (10:06→21:28)
[2019-05-07] MEDS: QUEtiapine TAB* 100 MG PO SCH ×2 (10:07→21:29)
[2019-05-07] MEDS: BuPROPion XL* 300 MG TAB.XL PO SCH (10:07)
[2019-05-07] MEDS: Sucralfate SUSP 1 GM/10 ml 10 ML UDC PO SCH ×4 (10:07→20:31)
--- NOTE | 2019-05-07 12:45 | PN ---
Subjective Date of Service: 05/07/19 Interval History: Patient continues to have severe abdominal pain, moderately relieved by medication, and nausea with no appetite. Patient has not had a BM in days and does not feel as if she needs to. Patient denies Cp, SOB, dizziness, OCHOA, dysuria, or other pain. Family History: Unchanged from Admission Social History: Unchanged from Admission Past Medical History: Unchanged from Admission Objective Active Medications: Bupropion HCl (Bupropion Xl*) 300 mg PO DAILY [facility] Last Admin: 05/07/19 10:07 Dose: 300 mg Diphenhydramine HCl (Benadryl Iv*) 12.5 mg IV Q8H PRN PRN Reason: ITCHING Last Admin: 05/07/19 10:06 Dose: 12.5 mg Gabapentin (Neurontin Cap(*)) 300 mg PO TID [facility] Last Admin: 05/07/19 10:06 Dose: 300 mg Heparin Sodium (Porcine) (Heparin Flush Picc/Ml/Cvc(*)) 1 - 3 ml FLUSH 0600, 1800 [facility]; Protocol Last Admin: 05/07/19 05:22 Dose: 2 ml Hydroxyzine HCl (Atarax Tab*) 50 mg PO Q8HR PRN PRN Reason: .ANXIETY Last Admin: 05/04/19 19:42 Dose: 50 mg Dextrose 500 ml/ Amino Acids 850 ml/ Sterile Water 150 ml/Fat Emulsion Intravenous 250 ml/ Sodium Chloride 100 meq/Potassium Chloride 50 meq/Potassium Phosphate 10 mmole/Calcium Gluconate 15 meq/Magnesium Sulfate 20 meq/ Multivitamins 10 ml/ Trace Metals 1 ml/ Nutrition ( Parenteral) 1,851.5174 mls @ 77.147 mls/hr [facility] 1700 [facility]; Protocol Last Admin: 05/06/19 17:45 Dose: 77.147 mls/hr Levothyroxine Sodium (Synthroid Tab*) 25 mcg PO 0600 [facility] Last Admin: 05/07/19 05:22 Dose: 25 mcg Lorazepam (Ativan Inj*) 0.5 mg IV PUSH Q4H PRN PRN Reason: ANXIETY Last Admin: 05/07/19 10:05 Dose: 0.5 mg Miscellaneous (Ativan Pyxis Cabrera) 1 ea N/A .ATIVAN IV CABRERA PRN PRN Reason: PYXIS CABRERA Morphine Sulfate (Morphine Inj (Syringe))*) 2 mg IV Q3H PRN PRN Reason: PAIN - MODERATE Last Admin: 05/07/19 10:05 Dose: 2 mg Omeprazole (Prilosec Cap* (Nf)) 40 mg PO BID [facility] Last Admin: 05/07/19 10:06 Dose: 40 mg Ondansetron HCl (Zofran Inj*) 4 mg IV Q6H PRN PRN Reason: NAUSEA Last Admin: 05/07/19 10:05 Dose: 4 mg Quetiapine Fumarate (Seroquel Tab*) 100 mg PO BID [facility] Last Admin: 05/07/19 10:07 Dose: 100 mg Sucralfate (Sucralfate Susp) 1 gm PO QID [facility] Last Admin: 05/07/19 10:07 Dose: 1 gm Vital Signs - 8 hr 05/07/19 05/07/19 05/07/19 05:20 05:21 06:40 Temperature Pulse Rate 129 Respiratory 14 14 Rate Blood Pressure 95/54 (mmHg) O2 Sat by Pulse Oximetry 05/07/19 05/07/19 05/07/19 07:07 07:59 08:04 Temperature 97.7 F Pulse Rate 87 Respiratory 16 18 16 Rate Blood Pressure 90/62 (mmHg) O2 Sat by Pulse 100 Oximetry 05/07/19 05/07/19 05/07/19 10:05 10:06 11:11 Temperature Pulse Rate Respiratory 18 18 16 Rate Blood Pressure (mmHg) O2 Sat by Pulse Oximetry 05/07/19 05/07/19 05/07/19 11:12 11:13 11:36 Temperature 98.2 F Pulse Rate 91 Respiratory 16 16 16 Rate Blood Pressure 89/56 (mmHg) O2 Sat by Pulse 98 Oximetry Oxygen Devices in Use Now: None Appearance: Patient is a 43yo female who appears older than stated age and is sitting in the bed in [facility]. Eyes: No Scleral Icterus, PERRLA Ears/Nose/Mouth/Throat: NL Teeth, Lips, Gums, Clear Oropharnyx, Mucous Membranes Moist Neck: NL Appearance and Movements; NL JVP, Trachea Midline Respiratory: Symmetrical Chest Expansion and Respiratory Effort, Clear to Auscultation Cardiovascular: NL Sounds; No Murmurs; No JVD, RRR, No Edema Abdominal: No Hepatosplenomegaly, - - Hypoactive bowel sounds. Lymphatic: No Cervical Adenopathy Extremities: No Edema, No Clubbing, Cyanosis Skin: No Rash or Ulcers, No Nodules or Sclerosis Neurological: Alert and Oriented x 3, NL Sensation, NL Gait, NL Muscle Strength and Tone, - - CN II-XII intact. - Nutrition: Malnutrition Diagnosis/Plan Malnutrition Assessment by Registered Dietitian: Malnutrition Assessment Clinical Characteristics Chronic,Severe Malnutrition Assessment: - visible and severe clavicular muscle wasting Criteria - meeting <75% nutrient needs x >1 mo (severe) - unintentional wt loss x 4 mos (current wt 120lb, UBW 170lb x4 months ago = 29.4% loss/4 mos) Malnutrition Assessment: - will follow labs/electrolytes/BG during NPO Interventions status - if nutrition support initiated, follow for s/ sx refeeding syndrome - if po diet ordered, start w/small amounts full liquid-type textures and liquid supplements - follow GI consult and any plans for surgical intervention Malnutrition Assessment: Goals 1. pt will remain NPO per provider order 2. RDN suggests initiation of PPN base A and monitoring for s/sx refeeding syndrome 3. maintain fluid/electrolyte balance without clinical s/sx dehydration 4. bowel regularity w/o development of diarrhea / constipation Result Diagrams: 05/07/19 05:40 05/07/19 05:40 Microbiology and Other Data: Microbiology 04/28/19 00:15 Nasal Screen MRSA (PCR) - Final Nasal Mrsa Not Detected Assess/Plan/Problems-Billing Assessment: Ms. Callaway is a 43 yo F with PMH of bipolar, PTSD, DVT, recurrent SBO; presented to the ER with abd pain, N/V unable to tolerate PO intake. Patient was recently admitted from 04/16-04/24 for ulcer at stomach anastomosis, possible stricture at anastomosis, severe protein-calorie malnutrition and is improving slowly on TPN. - Patient Problems (1) Gastrojejunal ulcer Current Visit: Yes Status: Acute Code(s): K28.9 - GASTROJEJUNAL ULCER, UNSP ACUTE OR CHR, W/O HEMOR OR PERF SNOMED Code(s): 44196882 Comment: - Multiple recent hospitalizations - CT with no obstruction, but concern for almost total obstruction at Anastomosis site. - EGD on 04/29/19 showing severe ulceration at anastomosis; unable to pass EGD scope to evaluate - Appreciate GI consult; recommends NPO except meds, PPI, no NSAIDS - Appreciate Surgery consult; no surgery at this time, agrees with NPO and TPN - Recommended f/u at [facility] with GI as outpatient for repeat EGD in 6-8 weeks - Continue TPN until symptoms nakul and is able to tolerate adequate oral intake. - Outpatient TPN not an option per Case Management as the patient does not have a home to go to and limited motivation for independent medical care. - Continue Zofran, morphine, omeprazole, Carafate (2) Chronic malnutrition Current Visit: No Status: Acute Code(s): E46 - UNSPECIFIED PROTEIN-CALORIE MALNUTRITION SNOMED Code(s): 5699828 Comment: - Chronic, severe - NPO d/t severity of ulceration and GI recommendations - Continue TPN; appreciate input from Dietary and Pharmacy (3) Anemia Current Visit: No Status: Acute Code(s): D64.9 - ANEMIA, UNSPECIFIED SNOMED Code(s): 630630230 Comment: - H&H continuing to decline despite improving surrogate markers for nutrition - Check Iron studies, Folate, B12, LDH, stool occult blood, hold blood thinners. - Likely secondary to malnutrition - Continue omeprazole (4) Hypomagnesemia Current Visit: Yes Status: Acute Code(s): E83.42 - HYPOMAGNESEMIA SNOMED Code(s): 514343593 Comment: - Replete again today - TPN mag dosing is at recommended max - Recheck in AM (5) Thrombocytopenia Current Visit: Yes Status: Acute Code(s): D69.6 - THROMBOCYTOPENIA, UNSPECIFIED SNOMED Code(s): 927000263 Comment: - Only one reading. - Natural History not very concerning for HIT - Hold Lovenox for anemia. (6) Bipolar disorder Current Visit: No Status: Acute Code(s): F31.9 - BIPOLAR DISORDER, UNSPECIFIED SNOMED Code(s): 23331927 Comment: - Continue bupropion, Seroquel, hydroxyzine (7) History of DVT (deep vein thrombosis) Current Visit: No Status: Acute Code(s): Z86.718 - PERSONAL HISTORY OF OTHER VENOUS THROMBOSIS AND EMBOLISM SNOMED Code(s): 304405683 Comment: - History of DVT August 2018 - No residual clot, stop Eliquis due to DVT being provoked and start lovenox prophylaxis dose if Hemoglobin stable. (8) Hypothyroidism Current Visit: No Status: Acute Code(s): E03.9 - HYPOTHYROIDISM, UNSPECIFIED SNOMED Code(s): 20853569 Comment: - Continue levothyroxine (9) Leukopenia Current Visit: No Status: Acute Code(s): D72.819 - DECREASED WHITE BLOOD CELL COUNT, UNSPECIFIED SNOMED Code(s): 84978809 Comment: - Chronic, Likely due to malnutrition - May need Heme/Onc consult and bone marrow biopsy if persistent after nutrition status improved. (10) Full code status Current Visit: No Status: Acute Code(s): Z78.9 - OTHER SPECIFIED HEALTH STATUS SNOMED Code(s): 908630315 Comment: (11) DVT prophylaxis Current Visit: No Status: Acute Code(s): Z29.9 - ENCOUNTER FOR PROPHYLACTIC MEASURES, UNSPECIFIED SNOMED Code(s): 977067037 Comment: - SCDs and Ambulation in setting of worsening anemia in setting of GI ulcer. Status and Disposition: Inpatient. Unclear how long she will require TPN, May be able to arrange home TPN in the near future.
[2019-05-07] MEDS: TPN CENTRAL STANDARD BASE A CENTR SCH ×12 (17:01)
[2019-05-08] MEDS: Ondansetron INJ* 2 MG/ML VIAL IV PRN ×4 (00:39→21:15)
[2019-05-08] MEDS: LORazepam INJ* 2 MG/ML 1 ML VIAL IV PUSH PRN ×5 (00:40→21:39)
[2019-05-08] MEDS: Morphine INJ* 2 MG/ML 1 ML SYRINGE (TWO MG - NEW SYRINGE VERSION) IV PRN ×7 (00:40→21:15)
[2019-05-08] MEDS: diPHENhydraMINE IV* 50 MG/ML 1 ml VIAL (BENADRYL) IV PRN ×3 (03:35→21:39)
[2019-05-08] MEDS: Levothyroxine TAB* 25 MCG TAB PO SCH (05:23)
[2019-05-08 06:27] LABS: % Iron Saturation 22 % (15-55); Iron 54 ug/dL (50-212); LDH 124 U/L (140-271); Prealbumin 20 mg/dL (18-38); Total Iron Binding Capacity 251 mcg/dL (250-450); Transferrin 179 mg/dL (203-362)
[2019-05-08 06:48] LABS: Ferritin 38.6 ng/mL (11-307)
[2019-05-08 06:52] LABS: Folate 9.89 ng/mL (>3.99)
[2019-05-08 07:30] LABS: Albumin 2.5 g/dL (3.2-5.2); CO2 Carbon Dioxide 25 mmol/L (22-32); Calcium 7.9 mg/dL (8.6-10.3); Magnesium 1.7 mg/dL (1.9-2.7); Potassium 4.2 mmol/L (3.5-5.0); Sodium 139 mmol/L (135-145)
[2019-05-08 07:36] LABS: ALT 11 U/L (7-52); AST 17 U/L (13-39); Albumin/Globulin Ratio 1.3 (1-3); Alkaline Phosphatase 37 U/L (34-104); BUN/Creatinine Ratio 28.9 (8-20); Blood Urea Nitrogen 13 mg/dL (6-24); Cholesterol 121 mg/dL; EGFR African American 184.9 (>60); EGFR Non-African American 152.8 (>60); Globulin 1.9 g/dL (2-4); Glucose 82 mg/dL (70-100); Phosphorus 2.8 mg/dL (2.5-5.0); Total Protein 4.4 g/dL (6.4-8.9); Triglycerides 90 mg/dL
[2019-05-08 07:41] LABS: Anion Gap 2 mmol/L (2-11); Chloride 112 mmol/L (101-111)
[2019-05-08] MEDS ORDERED: Magnesium Sulfate 2 GM IV* 2 GM/50 ML BAG IVPB ONE (09:17)
[2019-05-08] MEDS: CMCS: Omeprazole CAP (NF) 20 MG CAP.DR PO SCH ×2 (09:33→21:13)
[2019-05-08] MEDS: QUEtiapine TAB* 100 MG PO SCH ×2 (09:33→21:15)
[2019-05-08] MEDS: Sucralfate SUSP 1 GM/10 ml 10 ML UDC PO SCH ×4 (09:33→21:15)
[2019-05-08] MEDS: Gabapentin CAP(*) 300 MG PO SCH ×3 (09:33→21:16)
[2019-05-08] MEDS: BuPROPion XL* 300 MG TAB.XL PO SCH (09:33)
--- NOTE | 2019-05-08 11:34 | PN ---
Subjective Date of Service: 05/08/19 Interval History: Patient has no changes in her abdominal pain, or nausea. Patient denies palpitations, dizziness, CP, SOB, dysuria, bleeding, bruising, or other pain. Family History: Unchanged from Admission Social History: Unchanged from Admission Past Medical History: Unchanged from Admission Objective Active Medications: Bupropion HCl (Bupropion Xl*) 300 mg PO DAILY [facility] Last Admin: 05/08/19 09:33 Dose: 300 mg Diphenhydramine HCl (Benadryl Iv*) 12.5 mg IV Q8H PRN PRN Reason: ITCHING Last Admin: 05/08/19 03:35 Dose: 12.5 mg Gabapentin (Neurontin Cap(*)) 300 mg PO TID [facility] Last Admin: 05/08/19 09:33 Dose: 300 mg Heparin Sodium (Porcine) (Heparin Flush Picc/Ml/Cvc(*)) 1 - 3 ml FLUSH 0600, 1800 [facility]; Protocol Last Admin: 05/08/19 05:24 Dose: 2 ml Hydroxyzine HCl (Atarax Tab*) 50 mg PO Q8HR PRN PRN Reason: .ANXIETY Last Admin: 05/04/19 19:42 Dose: 50 mg Dextrose 500 ml/ Amino Acids 850 ml/ Sterile Water 150 ml/Fat Emulsion Intravenous 250 ml/ Sodium Chloride 100 meq/Potassium Chloride 50 meq/Potassium Phosphate 10 mmole/Calcium Gluconate 15 meq/Magnesium Sulfate 20 meq/ Multivitamins 10 ml/ Trace Metals 1 ml/ Nutrition ( Parenteral) 1,851.5174 mls @ 77.147 mls/hr [facility]; Protocol Last Admin: 05/07/19 17:01 Dose: 77.147 mls/hr Levothyroxine Sodium (Synthroid Tab*) 25 mcg PO 0600 [facility] Last Admin: 05/08/19 05:23 Dose: 25 mcg Lorazepam (Ativan Inj*) 0.5 mg IV PUSH Q4H PRN PRN Reason: ANXIETY Last Admin: 05/08/19 06:24 Dose: 0.5 mg Miscellaneous (Ativan Pyxis Cabrera) 1 ea N/A .ATIVAN IV CABRERA PRN PRN Reason: PYXIS CABRERA Morphine Sulfate (Morphine Inj (Syringe))*) 2 mg IV Q3H PRN PRN Reason: PAIN - MODERATE Last Admin: 05/08/19 09:32 Dose: 2 mg Omeprazole (Prilosec Cap* (Nf)) 40 mg PO BID [facility] Last Admin: 05/08/19 09:33 Dose: 40 mg Ondansetron HCl (Zofran Inj*) 4 mg IV Q6H PRN PRN Reason: NAUSEA Last Admin: 05/08/19 06:24 Dose: 4 mg Quetiapine Fumarate (Seroquel Tab*) 100 mg PO BID [facility] Last Admin: 05/08/19 09:33 Dose: 100 mg Sucralfate (Sucralfate Susp) 1 gm PO QID [facility] Last Admin: 05/08/19 09:33 Dose: 1 gm Vital Signs - 8 hr 05/08/19 05/08/19 05/08/19 03:35 03:36 03:45 Temperature Pulse Rate Respiratory 12 12 12 Rate Blood Pressure (mmHg) O2 Sat by Pulse Oximetry 05/08/19 05/08/19 05/08/19 05:30 06:24 07:00 Temperature 98.0 F Pulse Rate 65 Respiratory 12 14 16 Rate Blood Pressure 95/50 (mmHg) O2 Sat by Pulse 100 Oximetry 05/08/19 05/08/19 05/08/19 08:00 09:17 09:32 Temperature Pulse Rate Respiratory 16 16 16 Rate Blood Pressure (mmHg) O2 Sat by Pulse Oximetry 05/08/19 09:33 Temperature Pulse Rate Respiratory 16 Rate Blood Pressure (mmHg) O2 Sat by Pulse Oximetry Oxygen Devices in Use Now: None Appearance: Patient is a 43yo female who appears stated age and is sitting in the bed in [facility]. Eyes: No Scleral Icterus, PERRLA Ears/Nose/Mouth/Throat: NL Teeth, Lips, Gums, Clear Oropharnyx, Mucous Membranes Moist Neck: NL Appearance and Movements; NL JVP, Trachea Midline Respiratory: Symmetrical Chest Expansion and Respiratory Effort, Clear to Auscultation Cardiovascular: NL Sounds; No Murmurs; No JVD, RRR, No Edema Abdominal: - - hypoactive bowel sounds. Tender to palpation diffusely. Lymphatic: No Cervical Adenopathy Extremities: No Edema, No Clubbing, Cyanosis Skin: No Rash or Ulcers, No Nodules or Sclerosis Neurological: Alert and Oriented x 3, NL Sensation, NL Muscle Strength and Tone , - - CN II-XII intact. - Nutrition: Malnutrition Diagnosis/Plan Malnutrition Assessment by Registered Dietitian: Malnutrition Assessment Clinical Characteristics Chronic,Severe Malnutrition Assessment: - visible and severe clavicular muscle wasting Criteria - meeting <75% nutrient needs x >1 mo (severe) - unintentional wt loss x 4 mos (current wt 120lb, UBW 170lb x4 months ago = 29.4% loss/4 mos) Malnutrition Assessment: - will follow labs/electrolytes/BG during NPO Interventions status - if nutrition support initiated, follow for s/ sx refeeding syndrome - if po diet ordered, start w/small amounts full liquid-type textures and liquid supplements - follow GI consult and any plans for surgical intervention Malnutrition Assessment: Goals 1. pt will remain NPO per provider order 2. RDN suggests initiation of PPN base A and monitoring for s/sx refeeding syndrome 3. maintain fluid/electrolyte balance without clinical s/sx dehydration 4. bowel regularity w/o development of diarrhea / constipation Result Diagrams: 05/07/19 05:40 05/08/19 05:35 Microbiology and Other Data: Microbiology 04/28/19 00:15 Nasal Screen MRSA (PCR) - Final Nasal Mrsa Not Detected Assess/Plan/Problems-Billing Assessment: Ms. Callaway is a 43 yo F with PMH of bipolar, PTSD, DVT, recurrent SBO; presented to the ER with abd pain, N/V unable to tolerate PO intake. Patient was recently admitted from 04/16-04/24 for ulcer at stomach anastomosis, possible stricture at anastomosis, severe protein-calorie malnutrition and is improving slowly on TPN. - Patient Problems (1) Gastrojejunal ulcer Current Visit: Yes Status: Acute Code(s): K28.9 - GASTROJEJUNAL ULCER, UNSP ACUTE OR CHR, W/O HEMOR OR PERF SNOMED Code(s): 02035516 Comment: - Multiple recent hospitalizations - CT with no obstruction, but concern for almost total obstruction at Anastomosis site. - EGD on 04/29/19 showing severe ulceration at anastomosis; unable to pass EGD scope to evaluate - Appreciate GI consult; recommends NPO except meds, PPI, no NSAIDS - Appreciate Surgery consult; no surgery at this time, agrees with NPO and TPN - Recommended f/u at [facility] with [facility] as outpatient for repeat EGD in 6-8 weeks - Continue TPN until symptoms nakul and is able to tolerate adequate oral intake. - Outpatient TPN not an option per Case Management as the patient does not have a home to go to and limited motivation for independent medical care. We will continue to address the possibility of home care with the patient. - Continue Zofran, morphine, omeprazole, Carafate (2) Chronic malnutrition Current Visit: No Status: Acute Code(s): E46 - UNSPECIFIED PROTEIN-CALORIE MALNUTRITION SNOMED Code(s): 0956676 Comment: - Chronic, severe - NPO d/t severity of ulceration and GI recommendations - Continue TPN; appreciate input from Dietary and Pharmacy - Surrogate markers of nutrition improving (3) Anemia Current Visit: No Status: Acute Code(s): D64.9 - ANEMIA, UNSPECIFIED SNOMED Code(s): 194614444 Comment: - H&H continuing to decline despite improving surrogate markers for nutrition - Iron studies consistent with AOCD, no other abnormalities. - Likely secondary to malnutrition - Continue omeprazole (4) Hypomagnesemia Current Visit: Yes Status: Acute Code(s): E83.42 - HYPOMAGNESEMIA SNOMED Code(s): 931294493 Comment: - Replete again today - TPN mag dosing is at recommended max - Recheck in AM (5) Thrombocytopenia Current Visit: Yes Status: Acute Code(s): D69.6 - THROMBOCYTOPENIA, UNSPECIFIED SNOMED Code(s): 587824653 Comment: - Only one reading. - Natural History not very concerning for HIT - Hold Lovenox for anemia. (6) Bipolar disorder Current Visit: No Status: Acute Code(s): F31.9 - BIPOLAR DISORDER, UNSPECIFIED SNOMED Code(s): 40728389 Comment: - Continue bupropion, Seroquel, hydroxyzine (7) History of DVT (deep vein thrombosis) Current Visit: No Status: Acute Code(s): Z86.718 - PERSONAL HISTORY OF OTHER VENOUS THROMBOSIS AND EMBOLISM SNOMED Code(s): 099151741 Comment: - History of DVT August 2018 - No residual clot, stop Eliquis due to DVT being provoked and start lovenox prophylaxis dose if Hemoglobin stable. (8) Hypothyroidism Current Visit: No Status: Acute Code(s): E03.9 - HYPOTHYROIDISM, UNSPECIFIED SNOMED Code(s): 34075005 Comment: - Continue levothyroxine (9) Leukopenia Current Visit: No Status: Acute Code(s): D72.819 - DECREASED WHITE BLOOD CELL COUNT, UNSPECIFIED SNOMED Code(s): 25891268 Comment: - Chronic, Likely due to malnutrition - May need Heme/Onc consult and bone marrow biopsy if persistent after nutrition status improved. (10) Full code status Current Visit: No Status: Acute Code(s): Z78.9 - OTHER SPECIFIED HEALTH STATUS SNOMED Code(s): 810128822 Comment: (11) DVT prophylaxis Current Visit: No Status: Acute Code(s): Z29.9 - ENCOUNTER FOR PROPHYLACTIC MEASURES, UNSPECIFIED SNOMED Code(s): 592355053 Comment: - SCDs and Ambulation in setting of worsening anemia in setting of GI ulcer. Status and Disposition: Inpatient. Unclear how long she will require TPN, May be able to arrange home TPN in the near future.
[2019-05-08] MEDS: TPN CENTRAL STANDARD BASE A CENTR SCH ×12 (17:12)
[2019-05-09] MEDS: Levothyroxine TAB* 25 MCG TAB PO SCH (06:00)
[2019-05-09] MEDS: CMCS: Omeprazole CAP (NF) 20 MG CAP.DR PO SCH ×2 (07:50→22:04)
[2019-05-09] MEDS: Gabapentin CAP(*) 300 MG PO SCH ×3 (07:50→22:01)
[2019-05-09] MEDS: BuPROPion XL* 300 MG TAB.XL PO SCH (07:50)
[2019-05-09] MEDS: QUEtiapine TAB* 100 MG PO SCH ×2 (07:50→22:04)
[2019-05-09] MEDS: Sucralfate SUSP 1 GM/10 ml 10 ML UDC PO SCH ×4 (07:51→22:04)
[2019-05-09] MEDS: Ondansetron INJ* 2 MG/ML VIAL IV PRN (07:51)
[2019-05-09] MEDS: Morphine INJ* 2 MG/ML 1 ML SYRINGE (TWO MG - NEW SYRINGE VERSION) IV PRN ×5 (07:55→22:23)
[2019-05-09] MEDS: diPHENhydraMINE IV* 50 MG/ML 1 ml VIAL (BENADRYL) IV PRN ×2 (07:58→17:38)
[2019-05-09] MEDS: LORazepam INJ* 2 MG/ML 1 ML VIAL IV PUSH PRN ×3 (07:58→17:38)
[2019-05-09 07:59] LABS: ABS Eosinophils 0.1 10^3/ul (0-0.6); ABS Monocytes 0.3 10^3/ul (0-0.8); ABS Neutrophils 1.3 10^3/ul (1.5-7.7); Eosinophil % 3.7 %; Hematocrit 27 % (35-47); Hemoglobin 8.9 g/dL (12.0-16.0); Lymphocyte % 37.3 %; Mean Corpuscular HGB Conc 33 g/dL (31-36); Mean Corpuscular Hemoglobin 33 pg (27-31); Mean Corpuscular Volume 101 fL (80-97); Mean Platelet Volume 8.7 fL (7.4-10.4); Nucleated Red Blood Cells % 0.2; Platelet Count 199 10^3/uL (150-450); Red Cell Distribution Width 20 % (10-15); White Blood Count 2.8 10^3/uL (3.5-10.8)
[2019-05-09] MEDS: Enoxaparin(*) 40 MG/0.4 ML SYR SUBCUT SCH (08:08)
[2019-05-09 08:15] LABS: BUN/Creatinine Ratio 22.8 (8-20); Calcium 8.5 mg/dL (8.6-10.3); EGFR African American 140.7 (>60); EGFR Non-African American 116.3 (>60); Magnesium 1.5 mg/dL (1.9-2.7); Potassium 4.7 mmol/L (3.5-5.0)
[2019-05-09] MEDS ORDERED: Magnesium Sulfate IV* 3 GM in NS 0.9% 100 ML* 100 ML IVPB ONE (10:39)
--- NOTE | 2019-05-09 11:13 | PN ---
Subjective Date of Service: 05/09/19 Interval History: Patient is still with abdominal pain and nausea. This is unchanged from previous , except for increase due to not getting Pain medication at night due to BP being somewhat low. Patient denies F/C, CP, SOB, dizziness, vomiting, or other pain. Patient has intermittent episodes of hunger, but this is not consistent. Family History: Unchanged from Admission Social History: Unchanged from Admission Past Medical History: Unchanged from Admission Objective Active Medications: Bupropion HCl (Bupropion Xl*) 300 mg PO DAILY [facility] Last Admin: 05/09/19 07:50 Dose: 300 mg Diphenhydramine HCl (Benadryl Iv*) 12.5 mg IV Q8H PRN PRN Reason: ITCHING Last Admin: 05/09/19 07:58 Dose: 12.5 mg Enoxaparin Sodium (Lovenox(*)) 40 mg SUBCUT Q24H [facility] Last Admin: 05/09/19 08:08 Dose: 40 mg Gabapentin (Neurontin Cap(*)) 300 mg PO TID [facility] Last Admin: 05/09/19 07:50 Dose: 300 mg Heparin Sodium (Porcine) (Heparin Flush Picc/Ml/Cvc(*)) 1 - 3 ml FLUSH 0600, 1800 [facility]; Protocol Last Admin: 05/09/19 06:01 Dose: 2 ml Hydroxyzine HCl (Atarax Tab*) 50 mg PO Q8HR PRN PRN Reason: .ANXIETY Last Admin: 05/04/19 19:42 Dose: 50 mg Dextrose 500 ml/ Amino Acids 850 ml/ Sterile Water 150 ml/Fat Emulsion Intravenous 250 ml/ Sodium Chloride 100 meq/Potassium Chloride 50 meq/Potassium Phosphate 10 mmole/Calcium Gluconate 15 meq/Magnesium Sulfate 20 meq/ Multivitamins 10 ml/ Trace Metals 1 ml/ Nutrition ( Parenteral) 1,851.5174 mls @ 77.147 mls/hr [facility]; Protocol Last Admin: 05/08/19 17:12 Dose: 77.147 mls/hr Magnesium Sulfate 3 gm/ Sodium (Chloride) 106 mls @ 53 mls/hr IVPB ONCE ONE Stop: 05/09/19 12:38 Levothyroxine Sodium (Synthroid Tab*) 25 mcg PO 0600 [facility] Last Admin: 05/09/19 06:00 Dose: 25 mcg Lorazepam (Ativan Inj*) 0.5 mg IV PUSH Q4H PRN PRN Reason: ANXIETY Last Admin: 05/09/19 07:58 Dose: 0.5 mg Miscellaneous (Ativan Pyxis Cabrera) 1 ea N/A .ATIVAN IV CABRERA PRN PRN Reason: PYXIS CABRERA Morphine Sulfate (Morphine Inj (Syringe))*) 2 mg IV Q3H PRN PRN Reason: PAIN - MODERATE Last Admin: 05/09/19 07:55 Dose: 2 mg Omeprazole (Prilosec Cap* (Nf)) 40 mg PO BID [facility] Last Admin: 05/09/19 07:50 Dose: 40 mg Ondansetron HCl (Zofran Inj*) 4 mg IV Q6H PRN PRN Reason: NAUSEA Last Admin: 05/09/19 07:51 Dose: 4 mg Quetiapine Fumarate (Seroquel Tab*) 100 mg PO BID [facility] Last Admin: 05/09/19 07:50 Dose: 100 mg Sucralfate (Sucralfate Susp) 1 gm PO QID [facility] Last Admin: 05/09/19 07:51 Dose: 1 gm Vital Signs - 8 hr 05/09/19 05/09/19 05/09/19 03:35 07:08 07:30 Temperature 97.6 F Pulse Rate 59 Respiratory 16 18 Rate Blood Pressure 80/51 94/62 (mmHg) O2 Sat by Pulse 100 Oximetry 05/09/19 05/09/19 05/09/19 07:50 07:55 07:58 Temperature Pulse Rate Respiratory 16 16 16 Rate Blood Pressure (mmHg) O2 Sat by Pulse Oximetry 05/09/19 05/09/19 08:54 09:09 Temperature Pulse Rate Respiratory 16 16 Rate Blood Pressure (mmHg) O2 Sat by Pulse Oximetry Oxygen Devices in Use Now: None Appearance: Patient is a 43yo female who appears older than stated age and is sitting in the bed in [facility]. Eyes: No Scleral Icterus, PERRLA Ears/Nose/Mouth/Throat: NL Teeth, Lips, Gums, Clear Oropharnyx, Mucous Membranes Moist Neck: NL Appearance and Movements; NL JVP, Trachea Midline Respiratory: Symmetrical Chest Expansion and Respiratory Effort, Clear to Auscultation Cardiovascular: NL Sounds; No Murmurs; No JVD, RRR, No Edema Abdominal: No Hepatosplenomegaly, - - Hypoactive bowel sounds, tender to palpation throughout. Lymphatic: No Cervical Adenopathy Extremities: No Edema, No Clubbing, Cyanosis Skin: No Rash or Ulcers, No Nodules or Sclerosis Neurological: Alert and Oriented x 3, NL Sensation, NL Gait, NL Muscle Strength and Tone, - - CN II-XII intact. - Nutrition: Malnutrition Diagnosis/Plan Malnutrition Assessment by Registered Dietitian: Malnutrition Assessment Clinical Characteristics Chronic,Severe Malnutrition Assessment: - visible and severe clavicular muscle wasting Criteria - meeting <75% nutrient needs x >1 mo (severe) - unintentional wt loss x 4 mos (current wt 120lb, UBW 170lb x4 months ago = 29.4% loss/4 mos) Malnutrition Assessment: - will follow labs/electrolytes/BG during NPO Interventions status - if nutrition support initiated, follow for s/ sx refeeding syndrome - if po diet ordered, start w/small amounts full liquid-type textures and liquid supplements - follow GI consult and any plans for surgical intervention Malnutrition Assessment: Goals 1. pt will remain NPO per provider order 2. RDN suggests initiation of PPN base A and monitoring for s/sx refeeding syndrome 3. maintain fluid/electrolyte balance without clinical s/sx dehydration 4. bowel regularity w/o development of diarrhea / constipation Result Diagrams: 05/09/19 07:30 05/09/19 07:30 Microbiology and Other Data: Microbiology 04/28/19 00:15 Nasal Screen MRSA (PCR) - Final Nasal Mrsa Not Detected Assess/Plan/Problems-Billing Assessment: Ms. Callaway is a 43 yo F with PMH of bipolar, PTSD, DVT, recurrent SBO; presented to the ER with abd pain, N/V unable to tolerate PO intake. Patient was recently admitted from 04/16-04/24 for ulcer at stomach anastomosis, possible stricture at anastomosis, severe protein-calorie malnutrition and is improving slowly on TPN. - Patient Problems (1) Gastrojejunal ulcer Current Visit: Yes Status: Acute Code(s): K28.9 - GASTROJEJUNAL ULCER, UNSP ACUTE OR CHR, W/O HEMOR OR PERF SNOMED Code(s): 89357636 Comment: - Multiple recent hospitalizations - CT with no obstruction, but concern for almost total obstruction at Anastomosis site. - EGD on 04/29/19 showing severe ulceration at anastomosis; unable to pass EGD scope to evaluate - Appreciate GI consult; recommends NPO except meds, PPI, no NSAIDS - Appreciate Surgery consult; no surgery at this time, agrees with NPO and TPN - Recommended f/u at [facility] with GI as outpatient for repeat EGD in 6-8 weeks - Continue TPN until symptoms nakul and is able to tolerate adequate oral intake. - Outpatient TPN not an option per Case Management as the patient does not have a home to go to and limited motivation for independent medical care. We will continue to address the possibility of home care with the patient. DSS housing is an option, but patient would have to be very motivated as the logistics sould be challenging, co-pays may also be an option. - Continue Zofran, morphine, omeprazole, Carafate (2) Chronic malnutrition Current Visit: No Status: Acute Code(s): E46 - UNSPECIFIED PROTEIN-CALORIE MALNUTRITION SNOMED Code(s): 4147059 Comment: - Chronic, severe - NPO d/t severity of ulceration and GI recommendations - Continue TPN; appreciate input from Dietary and Pharmacy - Surrogate markers of nutrition improving (3) Anemia Current Visit: No Status: Acute Code(s): D64.9 - ANEMIA, UNSPECIFIED SNOMED Code(s): 135588279 Comment: - H&H rebounded today - Iron studies consistent with AOCD, no other abnormalities. - Likely secondary to malnutrition - Continue omeprazole (4) Hypomagnesemia Current Visit: Yes Status: Acute Code(s): E83.42 - HYPOMAGNESEMIA SNOMED Code(s): 503215041 Comment: - Replete again today - TPN mag dosing is at recommended max - Recheck in AM (5) Thrombocytopenia Current Visit: Yes Status: Acute Code(s): D69.6 - THROMBOCYTOPENIA, UNSPECIFIED SNOMED Code(s): 228874654 Comment: - Only one reading. - Natural History not very concerning for HIT - Resume lovenox and recheck. (6) Bipolar disorder Current Visit: No Status: Acute Code(s): F31.9 - BIPOLAR DISORDER, UNSPECIFIED SNOMED Code(s): 04348528 Comment: - Continue bupropion, Seroquel, hydroxyzine (7) History of DVT (deep vein thrombosis) Current Visit: No Status: Acute Code(s): Z86.718 - PERSONAL HISTORY OF OTHER VENOUS THROMBOSIS AND EMBOLISM SNOMED Code(s): 885062063 Comment: - History of DVT August 2018 - No residual clot, stop Eliquis due to DVT being provoked and start lovenox prophylaxis dose if Hemoglobin stable. (8) Hypothyroidism Current Visit: No Status: Acute Code(s): E03.9 - HYPOTHYROIDISM, UNSPECIFIED SNOMED Code(s): 88882031 Comment: - Continue levothyroxine (9) Leukopenia Current Visit: No Status: Acute Code(s): D72.819 - DECREASED WHITE BLOOD CELL COUNT, UNSPECIFIED SNOMED Code(s): 59052377 Comment: - Chronic, Likely due to malnutrition - May need Heme/Onc consult and bone marrow biopsy if persistent after nutrition status improved. (10) Full code status Current Visit: No Status: Acute Code(s): Z78.9 - OTHER SPECIFIED HEALTH STATUS SNOMED Code(s): 377043395 Comment: (11) DVT prophylaxis Current Visit: No Status: Acute Code(s): Z29.9 - ENCOUNTER FOR PROPHYLACTIC MEASURES, UNSPECIFIED SNOMED Code(s): 531382915 Comment: - SCDs and Lovenox. Status and Disposition: Inpatient. Unclear how long she will require TPN, May be able to arrange home TPN in the near future.
[2019-05-09] MEDS: TPN CENTRAL STANDARD BASE A CENTR SCH ×12 (17:37)
[2019-05-10] MEDS: Levothyroxine TAB* 25 MCG TAB PO SCH (06:47)
[2019-05-10 07:13] LABS: BUN/Creatinine Ratio 21.8 (8-20); EGFR African American 146.7 (>60); EGFR Non-African American 121.2 (>60); Magnesium 1.4 mg/dL (1.9-2.7); Potassium 4.1 mmol/L (3.5-5.0)
[2019-05-10] MEDS ORDERED: Magnesium Sulf 4 GM/100 ML IV* 4,000 MG/100 ML BAG IVPB ONE (07:24)
[2019-05-10] MEDS: Gabapentin CAP(*) 300 MG PO SCH ×3 (07:56→21:54)
[2019-05-10] MEDS: Sucralfate SUSP 1 GM/10 ml 10 ML UDC PO SCH ×4 (07:56→22:02)
[2019-05-10] MEDS: QUEtiapine TAB* 100 MG PO SCH ×2 (07:56→21:54)
[2019-05-10] MEDS: CMCS: Omeprazole CAP (NF) 20 MG CAP.DR PO SCH ×2 (07:56→21:52)
[2019-05-10] MEDS: diPHENhydraMINE IV* 50 MG/ML 1 ml VIAL (BENADRYL) IV PRN ×2 (07:57→17:30)
[2019-05-10] MEDS: Enoxaparin(*) 40 MG/0.4 ML SYR SUBCUT SCH (07:57)
[2019-05-10] MEDS: BuPROPion XL* 300 MG TAB.XL PO SCH (07:57)
[2019-05-10] MEDS: Morphine INJ* 2 MG/ML 1 ML SYRINGE (TWO MG - NEW SYRINGE VERSION) IV PRN ×5 (07:57→21:57)
[2019-05-10] MEDS: LORazepam INJ* 2 MG/ML 1 ML VIAL IV PUSH PRN ×4 (07:57→21:56)
[2019-05-10] MEDS: Ondansetron INJ* 2 MG/ML VIAL IV PRN ×2 (07:57→17:35)
--- NOTE | 2019-05-10 10:26 | PN ---
Subjective Date of Service: 05/10/19 Interval History: Patient complains of unchanged and significant abdominal pain, nausea. Patient is very annoyed about her pain medications being held overnight due to low BP. Patient states the only time she gets symptomatic and feels like she is going to pass out is when she is walking and gets a wave of abdominal pain/nausea. She does not feel as if she was close to passing out at any point. Patient denies CP, SOB, F/C, dysuria, lower extremity pain or swelling. Family History: Unchanged from Admission Social History: Unchanged from Admission Past Medical History: Unchanged from Admission Objective Active Medications: Bupropion HCl (Bupropion Xl*) 300 mg PO DAILY [facility] Last Admin: 05/10/19 07:57 Dose: 300 mg Diphenhydramine HCl (Benadryl Iv*) 12.5 mg IV Q8H PRN PRN Reason: ITCHING Last Admin: 05/10/19 07:57 Dose: 12.5 mg Enoxaparin Sodium (Lovenox(*)) 40 mg SUBCUT Q24H [facility] Last Admin: 05/10/19 07:57 Dose: 40 mg Gabapentin (Neurontin Cap(*)) 300 mg PO TID [facility] Last Admin: 05/10/19 07:56 Dose: 300 mg Heparin Sodium (Porcine) (Heparin Flush Picc/Ml/Cvc(*)) 1 - 3 ml FLUSH 0600, 1800 [facility]; Protocol Last Admin: 05/10/19 06:39 Dose: 2 ml Hydroxyzine HCl (Atarax Tab*) 50 mg PO Q8HR PRN PRN Reason: .ANXIETY Last Admin: 05/04/19 19:42 Dose: 50 mg Dextrose 500 ml/ Amino Acids 850 ml/ Sterile Water 150 ml/Fat Emulsion Intravenous 250 ml/ Sodium Chloride 100 meq/Potassium Chloride 50 meq/Potassium Phosphate 10 mmole/Calcium Gluconate 15 meq/Magnesium Sulfate 20 meq/ Multivitamins 10 ml/ Trace Metals 1 ml/ Nutrition ( Parenteral) 1,851.5174 mls @ 77.147 mls/hr CENTR 1700 [facility]; Protocol Last Admin: 05/09/19 17:37 Dose: 77.147 mls/hr Magnesium Sulfate (Magnesium Sulf 4 Gm/100 Ml Iv*) 4,000 mg in 100 mls @ 33.333 mls/hr IVPB ONCE ONE Stop: 05/10/19 10:23 Last Admin: 05/10/19 07:56 Dose: 33.333 mls/hr Levothyroxine Sodium (Synthroid Tab*) 25 mcg PO 0600 [facility] Last Admin: 05/10/19 06:47 Dose: 25 mcg Lorazepam (Ativan Inj*) 0.5 mg IV PUSH Q4H PRN PRN Reason: ANXIETY Last Admin: 05/10/19 07:57 Dose: 0.5 mg Midodrine (Midodrine) 5 mg PO BID [facility]; Protocol Miscellaneous (Ativan Pyxis Cabrera) 1 ea N/A .ATIVAN IV CABRERA PRN PRN Reason: PYXIS CABRERA Morphine Sulfate (Morphine Inj (Syringe))*) 2 mg IV Q3H PRN PRN Reason: PAIN - MODERATE Last Admin: 05/10/19 07:57 Dose: 2 mg Omeprazole (Prilosec Cap* (Nf)) 40 mg PO BID [facility] Last Admin: 05/10/19 07:56 Dose: 40 mg Ondansetron HCl (Zofran Inj*) 4 mg IV Q6H PRN PRN Reason: NAUSEA Last Admin: 05/10/19 07:57 Dose: 4 mg Quetiapine Fumarate (Seroquel Tab*) 100 mg PO BID [facility] Last Admin: 05/10/19 07:56 Dose: 100 mg Sucralfate (Sucralfate Susp) 1 gm PO QID [facility] Last Admin: 05/10/19 07:56 Dose: 1 gm Vital Signs - 8 hr 05/10/19 05/10/19 05/10/19 03:38 07:00 07:56 Temperature 96.4 F Pulse Rate 71 86 Respiratory 16 18 18 Rate Blood Pressure 83/48 84/58 (mmHg) O2 Sat by Pulse 99 100 Oximetry 05/10/19 05/10/19 05/10/19 07:57 08:00 08:43 Temperature Pulse Rate Respiratory 18 18 14 Rate Blood Pressure (mmHg) O2 Sat by Pulse Oximetry Oxygen Devices in Use Now: None Appearance: Patient is a 43yo female who appears older than stated age and is sitting in the bed in [facility]. Eyes: No Scleral Icterus, PERRLA Ears/Nose/Mouth/Throat: NL Teeth, Lips, Gums, Clear Oropharnyx, Mucous Membranes Moist Neck: NL Appearance and Movements; NL JVP, Trachea Midline Respiratory: Symmetrical Chest Expansion and Respiratory Effort, Clear to Auscultation Cardiovascular: NL Sounds; No Murmurs; No JVD, RRR, No Edema Abdominal: No Hepatosplenomegaly, - - Tender to palpation throughout. Lymphatic: No Cervical Adenopathy Extremities: No Edema, No Clubbing, Cyanosis Skin: No Rash or Ulcers, No Nodules or Sclerosis Neurological: Alert and Oriented x 3, NL Sensation, NL Muscle Strength and Tone , - - CN II-XII intact. - Nutrition: Malnutrition Diagnosis/Plan Malnutrition Assessment by Registered Dietitian: Malnutrition Assessment Clinical Characteristics Chronic,Severe Malnutrition Assessment: - visible and severe clavicular muscle wasting Criteria - meeting <75% nutrient needs x >1 mo (severe) - unintentional wt loss x 4 mos (current wt 120lb, UBW 170lb x4 months ago = 29.4% loss/4 mos) Malnutrition Assessment: - will follow labs/electrolytes/BG during NPO Interventions status - if nutrition support initiated, follow for s/ sx refeeding syndrome - if po diet ordered, start w/small amounts full liquid-type textures and liquid supplements - follow GI consult and any plans for surgical intervention Malnutrition Assessment: Goals 1. pt will remain NPO per provider order 2. RDN suggests initiation of PPN base A and monitoring for s/sx refeeding syndrome 3. maintain fluid/electrolyte balance without clinical s/sx dehydration 4. bowel regularity w/o development of diarrhea / constipation Result Diagrams: 05/09/19 07:30 05/10/19 06:48 Microbiology and Other Data: Microbiology 04/28/19 00:15 Nasal Screen MRSA (PCR) - Final Nasal Mrsa Not Detected Assess/Plan/Problems-Billing Assessment: Ms. Callaway is a 43 yo F with PMH of bipolar, PTSD, DVT, recurrent SBO; presented to the ER with abd pain, N/V unable to tolerate PO intake. Patient was recently admitted from 04/16-04/24 for ulcer at stomach anastomosis, possible stricture at anastomosis, severe protein-calorie malnutrition and is improving slowly on TPN. - Patient Problems (1) Gastrojejunal ulcer Current Visit: Yes Status: Acute Code(s): K28.9 - GASTROJEJUNAL ULCER, UNSP ACUTE OR CHR, W/O HEMOR OR PERF SNOMED Code(s): 83022030 Comment: - Multiple recent hospitalizations - CT with no obstruction, but concern for almost total obstruction at Anastomosis site. - EGD on 04/29/19 showing severe ulceration at anastomosis; unable to pass EGD scope to evaluate - Appreciate GI consult; recommends NPO except meds, PPI, no NSAIDS - Appreciate Surgery consult; no surgery at this time, agrees with NPO and TPN - Recommended f/u at [facility] with GI as outpatient for repeat EGD in 6-8 weeks - Continue TPN until symptoms nakul and is able to tolerate adequate oral intake. - Outpatient TPN not an option per Case Management as the patient does not have a home to go to and limited motivation for independent medical care. We will continue to address the possibility of home care with the patient. DSS housing is an option, but patient would have to be very motivated as the logistics sould be challenging, co-pays may also be an obstacle. - Continue Zofran, morphine, omeprazole, Carafate (2) Chronic malnutrition Current Visit: No Status: Acute Code(s): E46 - UNSPECIFIED PROTEIN-CALORIE MALNUTRITION SNOMED Code(s): 3116859 Comment: - Chronic, severe - NPO d/t severity of ulceration and GI recommendations - Continue TPN; appreciate input from Dietary and Pharmacy - Surrogate markers of nutrition improving (3) Hypotension Current Visit: Yes Status: Acute Comment: - Likely due to malnutrition, not symptomatic - Check Cortisol and TFTs in AM - Start Midodrine due to concern for BP dropping excessively low with pain/ anxiety medication. (4) Anemia Current Visit: No Status: Acute Code(s): D64.9 - ANEMIA, UNSPECIFIED SNOMED Code(s): 987964162 Comment: - H&H rebounded - Iron studies consistent with AOCD, no other abnormalities. - Likely secondary to malnutrition - Continue omeprazole (5) Hypomagnesemia Current Visit: Yes Status: Acute Code(s): E83.42 - HYPOMAGNESEMIA SNOMED Code(s): 743614750 Comment: - Replete again today - TPN mag dosing is at recommended max - Recheck in AM (6) Thrombocytopenia Current Visit: Yes Status: Acute Code(s): D69.6 - THROMBOCYTOPENIA, UNSPECIFIED SNOMED Code(s): 442605944 Comment: - Only one reading. - Natural History not very concerning for HIT - Resume lovenox and recheck. (7) Bipolar disorder Current Visit: No Status: Acute Code(s): F31.9 - BIPOLAR DISORDER, UNSPECIFIED SNOMED Code(s): 58782476 Comment: - Continue bupropion, Seroquel, hydroxyzine (8) History of DVT (deep vein thrombosis) Current Visit: No Status: Acute Code(s): Z86.718 - PERSONAL HISTORY OF OTHER VENOUS THROMBOSIS AND EMBOLISM SNOMED Code(s): 781395062 Comment: - History of DVT August 2018 - No residual clot, stop Eliquis due to DVT being provoked and start lovenox prophylaxis dose if Hemoglobin stable. (9) Hypothyroidism Current Visit: No Status: Acute Code(s): E03.9 - HYPOTHYROIDISM, UNSPECIFIED SNOMED Code(s): 55361602 Comment: - Continue levothyroxine (10) Leukopenia Current Visit: No Status: Acute Code(s): D72.819 - DECREASED WHITE BLOOD CELL COUNT, UNSPECIFIED SNOMED Code(s): 53180542 Comment: - Chronic, Likely due to malnutrition - May need Heme/Onc consult and bone marrow biopsy if persistent after nutrition status improved. (11) Full code status Current Visit: No Status: Acute Code(s): Z78.9 - OTHER SPECIFIED HEALTH STATUS SNOMED Code(s): 629177534 Comment: (12) DVT prophylaxis Current Visit: No Status: Acute Code(s): Z29.9 - ENCOUNTER FOR PROPHYLACTIC MEASURES, UNSPECIFIED SNOMED Code(s): 005865205 Comment: - SCDs and Lovenox. Status and Disposition: Inpatient. Unclear how long she will require TPN, May be able to arrange home TPN in the near future.
[2019-05-10] MEDS: TPN CENTRAL STANDARD BASE A CENTR SCH ×12 (16:27)
[2019-05-11] MEDS: Ondansetron INJ* 2 MG/ML VIAL IV PRN ×2 (04:34→16:08)
[2019-05-11] MEDS: diPHENhydraMINE IV* 50 MG/ML 1 ml VIAL (BENADRYL) IV PRN ×2 (04:36→16:08)
[2019-05-11] MEDS: Morphine INJ* 2 MG/ML 1 ML SYRINGE (TWO MG - NEW SYRINGE VERSION) IV PRN ×5 (04:37→20:22)
[2019-05-11] MEDS: LORazepam INJ* 2 MG/ML 1 ML VIAL IV PUSH PRN ×5 (04:38→20:20)
[2019-05-11 05:09] LABS: ABS Eosinophils 0.1 10^3/ul (0-0.6); ABS Lymphocytes 1.1 10^3/ul (1.0-4.8); ABS Monocytes 0.3 10^3/ul (0-0.8); ABS Neutrophils 1.4 10^3/ul (1.5-7.7); Eosinophil % 1.8 %; Hematocrit 24 % (35-47); Hemoglobin 8.1 g/dL (12.0-16.0); Lymphocyte % 37.2 %; Mean Corpuscular HGB Conc 34 g/dL (31-36); Mean Corpuscular Hemoglobin 33 pg (27-31); Mean Corpuscular Volume 100 fL (80-97); Mean Platelet Volume 9.1 fL (7.4-10.4); Platelet Count 183 10^3/uL (150-450); Red Blood Count 2.41 10^6 /uL (3.70-4.87); Red Cell Distribution Width 19 % (10-15); White Blood Count 2.8 10^3/uL (3.5-10.8)
[2019-05-11 05:28] LABS: BUN/Creatinine Ratio 23.7 (8-20); Calcium 8.1 mg/dL (8.6-10.3); EGFR African American 135.3 (>60); EGFR Non-African American 111.8 (>60); Magnesium 1.5 mg/dL (1.9-2.7); Potassium 4.3 mmol/L (3.5-5.0)
[2019-05-11] MEDS: Levothyroxine TAB* 25 MCG TAB PO SCH (05:45)
[2019-05-11 06:05] LABS: TSH (Thyroid Stimulating Horm) 4.14 mcIU/mL (0.34-5.60)
[2019-05-11 06:06] LABS: Free T3 2.6 pg/mL (2.5-3.9)
[2019-05-11 06:07] LABS: Free T4 0.6 ng/dL (0.61-1.12)
[2019-05-11] MEDS: QUEtiapine TAB* 100 MG PO SCH ×2 (09:36→20:30)
[2019-05-11] MEDS: Gabapentin CAP(*) 300 MG PO SCH ×3 (09:36→20:30)
[2019-05-11] MEDS: BuPROPion XL* 300 MG TAB.XL PO SCH (09:37)
[2019-05-11] MEDS: Enoxaparin(*) 40 MG/0.4 ML SYR SUBCUT SCH (09:37)
[2019-05-11] MEDS: Sucralfate SUSP 1 GM/10 ml 10 ML UDC PO SCH ×4 (09:37→20:31)
[2019-05-11] MEDS: CMCS: Omeprazole CAP (NF) 20 MG CAP.DR PO SCH ×2 (09:37→20:29)
[2019-05-11] MEDS: Magnesium Sulf 4 GM/100 ML IV* 4,000 MG/100 ML BAG IVPB ONE ×2 (09:38→13:20)
[2019-05-11] MEDS: Alteplase (CATHFLO)* 2 MG VIAL IV SCH (11:56)
--- NOTE | 2019-05-11 16:02 | PN ---
Subjective Date of Service: 05/11/19 Interval History: Ms. Callaway is not feeling well today. She has had continued asymptomatic hypotension and is frustrated that her BP is not being checked consistently. She is also frustrated with the fluid restriction because she has thrown out some drinks and that has counted toward her daily restriction. Abdominal pain is unchanged. She has been ambulating in the halls most of the day. Denies N/V and tolerating clears well. Nursing reports continued hypotension. Family History: Unchanged from Admission Social History: Unchanged from Admission Past Medical History: Unchanged from Admission Objective Active Medications: Bupropion HCl (Bupropion Xl*) 300 mg PO DAILY [facility] Diphenhydramine HCl (Benadryl Iv*) 12.5 mg IV Q8H PRN ITCHING Enoxaparin Sodium (Lovenox(*)) 40 mg SUBCUT Q24H [facility] Gabapentin (Neurontin Cap(*)) 300 mg PO TID [facility] Heparin Sodium (Porcine) (Heparin Flush Picc/Ml/Cvc(*)) 1 - 3 ml FLUSH 0600, 1800 [facility]; Protocol Hydroxyzine HCl (Atarax Tab*) 50 mg PO Q8HR PRN ANXIETY Dextrose 500 ml/ Amino Acids 850 ml/ Sterile Water 150 ml/Fat Emulsion Intravenous 250 ml/ Sodium Chloride 100 meq/Potassium Chloride 50 meq/Potassium Phosphate 10 mmole/Calcium Gluconate 15 meq/Magnesium Sulfate 20 meq/ Multivitamins 10 ml/ Trace Metals 1 ml/ Nutrition ( Parenteral) 1,851.5174 mls @ 77.147 mls/hr CENTR 1700 [facility]; Protocol Levothyroxine Sodium (Synthroid Tab*) 25 mcg PO 0600 [facility] Lorazepam (Ativan Inj*) 0.5 mg IV PUSH Q4H PRN ANXIETY Midodrine (Midodrine) 5 mg PO BID [facility]; Protocol Morphine Sulfate (Morphine Inj (Syringe))*) 2 mg IV Q3H PRN PAIN - MODERATE Omeprazole (Prilosec Cap* (Nf)) 40 mg PO BID [facility] Ondansetron HCl (Zofran Inj*) 4 mg IV Q6H PRN NA[facility] Quetiapine Fumarate (Seroquel Tab*) 100 mg PO BID [facility] Sucralfate (Sucralfate Susp) 1 gm PO QID [facility] Vital Signs - 8 hr 05/11/19 05/11/1919 08:00 08:05 09:35 Temperature 98.6 F Pulse Rate 67 Respiratory 16 18 Rate Blood Pressure 66/40 80/58 (mmHg) O2 Sat by Pulse 100 Oximetry 05/11/19 05/11/19 05/11/19 09:36 10:57 11:05 Temperature 98 F Pulse Rate 72 Respiratory 18 15 16 Rate Blood Pressure 77/54 (mmHg) O2 Sat by Pulse 100 Oximetry 05/11/19 05/11/19 05/11/19 13:19 13:22 15:15 Temperature 97.3 F Pulse Rate 88 Respiratory 17 16 22 Rate Blood Pressure 74/54 (mmHg) O2 Sat by Pulse 99 Oximetry Oxygen Devices in Use Now: None Appearance: Middle-aged female sitting in chair in [facility] Ears/Nose/Mouth/Throat: Mucous Membranes Moist Neck: NL Appearance and Movements; NL JVP, Trachea Midline Respiratory: Symmetrical Chest Expansion and Respiratory Effort, Clear to Auscultation Cardiovascular: NL Sounds; No Murmurs; No JVD, RRR Abdominal: - - Soft, tender throughout Extremities: No Edema Neurological: Alert and Oriented x 3 Lines/Tubes/Other Access: Clean, Dry and Intact Peripheral IV Nutrition: Taking PO's, TPN - Nutrition: Malnutrition Diagnosis/Plan Malnutrition Assessment by Registered Dietitian: Malnutrition Assessment Clinical Characteristics Chronic,Severe Malnutrition Assessment: - visible and severe clavicular muscle wasting Criteria - meeting <75% nutrient needs x >1 mo (severe) - unintentional wt loss x 4 mos (current wt 120lb, UBW 170lb x4 months ago = 29.4% loss/4 mos) Malnutrition Assessment: - will follow labs/electrolytes/BG during NPO Interventions status - if nutrition support initiated, follow for s/ sx refeeding syndrome - if po diet ordered, start w/small amounts full liquid-type textures and liquid supplements - follow GI consult and any plans for surgical intervention Malnutrition Assessment: Goals 1. pt will remain NPO per provider order 2. RDN suggests initiation of PPN base A and monitoring for s/sx refeeding syndrome 3. maintain fluid/electrolyte balance without clinical s/sx dehydration 4. bowel regularity w/o development of diarrhea / constipation Result Diagrams: 05/11/19 04:50 05/11/19 04:50 Assess/Plan/Problems-Billing Assessment: Ms. Callaway is a 43 yo F with PMH of bipolar, PTSD, DVT, recurrent SBO; presented to the ER with abd pain, N/V unable to tolerate PO intake. Patient was recently admitted from 04/16/19 - 04/24/19 for ulcer at stomach anastomosis , possible stricture at anastomosis, severe protein-calorie malnutrition and is improving slowly on TPN. - Patient Problems (1) Gastrojejunal ulcer Code(s): K28.9 - GASTROJEJUNAL ULCER, UNSP ACUTE OR CHR, W/O HEMOR OR PERF Comment: - Multiple recent hospitalizations - CT with no obstruction, but concern for almost total obstruction at anastomosis site - EGD on 04/29/19 showing severe ulceration at anastomosis; unable to pass EGD scope to evaluate - Appreciate GI consult; recommends NPO except meds, PPI, no NSAIDS - Appreciate Surgery consult; no surgery at this time, agrees with NPO and TPN - Recommended f/u at [facility] with GI as outpatient for repeat EGD in 6-8 weeks - Continue TPN until symptoms nakul and is able to tolerate adequate oral intake. - Outpatient TPN not an option per Case Management as the patient does not have a home to go to and limited motivation for independent medical care; we will continue to address the possibility of home care with the patient; DSS housing is an option, but patient would have to be very motivated as the logistics sould be challenging, co-pays may also be an obstacle - Continue Zofran, morphine, omeprazole, Carafate (2) Hypotension Comment: - Asymptomatic - Likely due to malnutrition - Cortisol and TFT normal - Continue midodrine (3) Hypomagnesemia Code(s): E83.42 - HYPOMAGNESEMIA Comment: - Repleting again today - TPN mag dosing is at recommended max - Start mag oxide BID (4) Leukopenia Code(s): D72.819 - DECREASED WHITE BLOOD CELL COUNT, UNSPECIFIED Comment: - Chronic, likely due to malnutrition - May need Heme/Onc consult and BMB if persistent after nutrition status improved (5) Anemia Code(s): D64.9 - ANEMIA, UNSPECIFIED Comment: - H&H rebounded - Iron studies consistent with AOCD, no other abnormalities - Likely secondary to malnutrition - Continue omeprazole (6) Thrombocytopenia Code(s): D69.6 - THROMBOCYTOPENIA, UNSPECIFIED Comment: - Only one reading - HIT antibodies negative (7) Chronic malnutrition Code(s): E46 - UNSPECIFIED PROTEIN-CALORIE MALNUTRITION Comment: - Chronic, severe - NPO d/t severity of ulceration and GI recommendations - Continue TPN; appreciate input from Dietary and Pharmacy - Surrogate markers of nutrition improving (8) Bipolar disorder Code(s): F31.9 - BIPOLAR DISORDER, UNSPECIFIED Comment: - Continue bupropion, Seroquel, hydroxyzine (9) History of DVT (deep vein thrombosis) Code(s): Z86.718 - PERSONAL HISTORY OF OTHER VENOUS THROMBOSIS AND EMBOLISM Comment: - History of DVT August 2018 - No residual clot - Stop Eliquis due to DVT being provoked (10) Hypothyroidism Code(s): E03.9 - HYPOTHYROIDISM, UNSPECIFIED Comment: - Continue levothyroxine (11) DVT prophylaxis Code(s): Z29.9 - ENCOUNTER FOR PROPHYLACTIC MEASURES, UNSPECIFIED Comment: - Lovenox (12) Full code status Code(s): Z78.9 - OTHER SPECIFIED HEALTH STATUS Comment: Status and Disposition: Inpatient. Unclear how long she will require TPN, but may be able to arrange home TPN in the near future. Attending: Cha Garcia
[2019-05-11] MEDS: TPN CENTRAL STANDARD BASE A CENTR SCH ×12 (17:15)
[2019-05-11] MEDS: Magnesium Oxide TAB* 400 MG PO SCH (20:30)
[2019-05-12] MEDS: Ondansetron INJ* 2 MG/ML VIAL IV PRN ×3 (00:58→20:36)
[2019-05-12] MEDS: diPHENhydraMINE IV* 50 MG/ML 1 ml VIAL (BENADRYL) IV PRN (00:59)
[2019-05-12] MEDS: LORazepam INJ* 2 MG/ML 1 ML VIAL IV PUSH PRN ×4 (01:00→22:29)
[2019-05-12] MEDS: Morphine INJ* 2 MG/ML 1 ML SYRINGE (TWO MG - NEW SYRINGE VERSION) IV PRN ×5 (01:01→20:36)
[2019-05-12] MEDS: Levothyroxine TAB* 25 MCG TAB PO SCH (06:23)
[2019-05-12] MEDS: Magnesium Oxide TAB* 400 MG PO SCH ×2 (09:17→20:30)
[2019-05-12] MEDS: BuPROPion XL* 300 MG TAB.XL PO SCH (09:17)
[2019-05-12] MEDS: QUEtiapine TAB* 100 MG PO SCH ×2 (09:17→20:30)
[2019-05-12] MEDS: CMCS: Omeprazole CAP (NF) 20 MG CAP.DR PO SCH ×2 (09:17→20:28)
[2019-05-12] MEDS: Gabapentin CAP(*) 300 MG PO SCH ×3 (09:18→20:30)
[2019-05-12] MEDS: Sucralfate SUSP 1 GM/10 ml 10 ML UDC PO SCH ×4 (09:20→20:31)
[2019-05-12] MEDS: Enoxaparin(*) 40 MG/0.4 ML SYR SUBCUT SCH (09:22)
[2019-05-12 10:56] LABS: Albumin 2.4 g/dL (3.2-5.2); CO2 Carbon Dioxide 21 mmol/L (22-32); Calcium 8.1 mg/dL (8.6-10.3); Chloride 108 mmol/L (101-111); Magnesium 2.4 mg/dL (1.9-2.7); Sodium 130 mmol/L (135-145)
[2019-05-12 11:01] LABS: Prealbumin 18 mg/dL (18-38)
[2019-05-12 11:02] LABS: ALT 10 U/L (7-52); Albumin/Globulin Ratio 1.2 (1-3); Alkaline Phosphatase 34 U/L (34-104); BUN/Creatinine Ratio 27.4 (8-20); Blood Urea Nitrogen 17 mg/dL (6-24); Cholesterol 109 mg/dL; EGFR African American 127.7 (>60); EGFR Non-African American 105.6 (>60); Phosphorus 4.8 mg/dL (2.5-5.0); Total Protein 4.4 g/dL (6.4-8.9); Triglycerides 519 mg/dL
[2019-05-12 12:32] LABS: Anion Gap 1 mmol/L (2-11)
[2019-05-12 12:46] LABS: Glucose 826 mg/dL (70-100)
[2019-05-12] MEDS ORDERED: TPN* 24 HR with Dextrose 50% Water* 500 ML, Amino Acid Infusion 10%* 850 ML, Sterile Wa... CENTR SCH ×12 (12:47)
[2019-05-12 13:14] LABS: BUN/Creatinine Ratio 29.7 (8-20); Blood Urea Nitrogen 19 mg/dL (6-24); CO2 Carbon Dioxide 23 mmol/L (22-32); Calcium 8.3 mg/dL (8.6-10.3); Chloride 107 mmol/L (101-111); EGFR African American 123.1 (>60); EGFR Non-African American 101.8 (>60); Sodium 128 mmol/L (135-145)
--- NOTE | 2019-05-12 14:45 | PN ---
Subjective Date of Service: 05/12/19 Interval History: Ms. Callaway is still feeling poor. Abdominal pain remains unchanged. Still feeling a little nauseous. Having a bad day overall and has not been up ambulating as much today as yesterday. Nursing called to report critical glucose which was vastly different than finger stick (lab error). Family History: Unchanged from Admission Social History: Unchanged from Admission Past Medical History: Unchanged from Admission Objective Active Medications: Bupropion HCl (Bupropion Xl*) 300 mg PO DAILY [facility] Enoxaparin Sodium (Lovenox(*)) 40 mg SUBCUT Q24H [facility] Gabapentin (Neurontin Cap(*)) 300 mg PO TID [facility] Heparin Sodium (Porcine) (Heparin Flush Picc/Ml/Cvc(*)) 1 - 3 ml FLUSH 0600, 1800 [facility]; Protocol Hydroxyzine HCl (Atarax Tab*) 50 mg PO Q8HR PRN ANXIETY Dextrose 500 ml/ Amino Acids 850 ml/ Sterile Water 150 ml/Fat Emulsion Intravenous 250 ml/ Sodium Chloride 100 meq/Potassium Chloride 50 meq/Potassium Phosphate 10 mmole/Calcium Gluconate 15 meq/Magnesium Sulfate 20 meq/ Multivitamins 10 ml/ Trace Metals 1 ml/ Nutrition ( Parenteral) 1,851.5174 mls @ 77.147 mls/hr CENTR 1700 [facility]; Protocol Dextrose 500 ml/ Amino Acids 850 ml/ Sterile Water 150 ml/Fat Emulsion Intravenous 250 ml/ Sodium Chloride 115 meq/Potassium Chloride 50 meq/Potassium Phosphate 10 mmole/Calcium Gluconate 15 meq/Magnesium Sulfate 20 meq/ Multivitamins 10 ml/ Trace Metals 1 ml/ Nutrition ( Parenteral) 1,855.2674 mls @ 77.303 mls/hr CENTR 1700 [facility]; Protocol Levothyroxine Sodium (Synthroid Tab*) 25 mcg PO 0600 [facility] Lorazepam (Ativan Inj*) 0.5 mg IV PUSH Q4H PRN ANXIETY Magnesium Oxide (Magox 400 Tab*) 400 mg PO BID [facility] Midodrine (Midodrine) 5 mg PO BID [facility]; Protocol Morphine Sulfate (Morphine Inj (Syringe))*) 2 mg IV Q3H PRN PAIN - MODERATE Omeprazole (Prilosec Cap* (Nf)) 40 mg PO BID [facility] Ondansetron HCl (Zofran Inj*) 4 mg IV Q6H PRN NAUSEA Quetiapine Fumarate (Seroquel Tab*) 100 mg PO BID [facility] Sucralfate (Sucralfate Susp) 1 gm PO QID [facility] Vital Signs - 8 hr 05/12/19 05/12/19 05/12/19 07:15 07:49 07:50 Temperature 97.3 F Pulse Rate 83 Respiratory 18 18 18 Rate Blood Pressure 80/53 (mmHg) O2 Sat by Pulse 100 Oximetry 05/12/19 05/12/19 05/12/19 08:00 09:18 11:05 Temperature 97.6 F Pulse Rate 109 Respiratory 18 18 18 Rate Blood Pressure 78/53 (mmHg) O2 Sat by Pulse 99 Oximetry 05/12/19 05/12/19 05/12/19 11:30 12:43 13:13 Temperature Pulse Rate Respiratory 18 Rate Blood Pressure 78/50 80/55 (mmHg) O2 Sat by Pulse Oximetry Oxygen Devices in Use Now: None Appearance: Middle-aged female lying in bed in [facility] Ears/Nose/Mouth/Throat: Mucous Membranes Moist Neck: NL Appearance and Movements; NL JVP, Trachea Midline Respiratory: Symmetrical Chest Expansion and Respiratory Effort, Clear to Auscultation Cardiovascular: NL Sounds; No Murmurs; No JVD, RRR Abdominal: - - Soft, tender throughout Extremities: No Edema Neurological: Alert and Oriented x 3 Lines/Tubes/Other Access: Clean, Dry and Intact Peripheral IV Nutrition: Taking PO's - Nutrition: Malnutrition Diagnosis/Plan Malnutrition Assessment by Registered Dietitian: Malnutrition Assessment Clinical Characteristics Chronic,Severe Malnutrition Assessment: - visible and severe clavicular muscle wasting Criteria - meeting <75% nutrient needs x >1 mo (severe) - unintentional wt loss x 4 mos (current wt 120lb, UBW 170lb x4 months ago = 29.4% loss/4 mos) Malnutrition Assessment: - will follow labs/electrolytes/BG during NPO Interventions status - if nutrition support initiated, follow for s/ sx refeeding syndrome - if po diet ordered, start w/small amounts full liquid-type textures and liquid supplements - follow GI consult and any plans for surgical intervention Malnutrition Assessment: Goals 1. pt will remain NPO per provider order 2. RDN suggests initiation of PPN base A and monitoring for s/sx refeeding syndrome 3. maintain fluid/electrolyte balance without clinical s/sx dehydration 4. bowel regularity w/o development of diarrhea / constipation Result Diagrams: 11/04/19 04:50 05/12/19 12:44 Assess/Plan/Problems-Billing Assessment: Ms. Callaway is a 43 yo F with PMH of bipolar, PTSD, DVT, recurrent SBO; presented to the ER with abd pain, N/V unable to tolerate PO intake. Patient was recently admitted from 04/16/19 - 04/24/19 for ulcer at stomach anastomosis , possible stricture at anastomosis, severe protein-calorie malnutrition and is improving slowly on TPN. - Patient Problems (1) Gastrojejunal ulcer Code(s): K28.9 - GASTROJEJUNAL ULCER, UNSP ACUTE OR CHR, W/O HEMOR OR PERF Comment: - Multiple recent hospitalizations - Labs today showing hyperglycemia and elevated triglycerides which is lab error d/t poor drawing technique, no acute concerns; recheck labs in AM - CT with no obstruction, but concern for almost total obstruction at anastomosis site - EGD on 04/29/19 showing severe ulceration at anastomosis; unable to pass EGD scope to evaluate - Appreciate GI consult; recommends NPO except meds, PPI, no NSAIDS - Appreciate Surgery consult; no surgery at this time, agrees with NPO and TPN - Recommended f/u at [facility] with GI as outpatient for repeat EGD in 6-8 weeks - Continue TPN until symptoms nakul and is able to tolerate adequate oral intake. - Outpatient TPN not an option per Case Management as the patient does not have a home to go to and limited motivation for independent medical care; home TPN not an option per Medicare - Continue Zofran, morphine, omeprazole, Carafate (2) Hypotension Comment: - Asymptomatic - Likely due to malnutrition - Cortisol and TFT normal - Continue midodrine (3) Hypomagnesemia Code(s): E83.42 - HYPOMAGNESEMIA Comment: - Repleting again today - TPN mag dosing is at recommended max - Continue mag oxide BID (4) Leukopenia Code(s): D72.819 - DECREASED WHITE BLOOD CELL COUNT, UNSPECIFIED Comment: - Chronic, likely due to malnutrition - May need Heme/Onc consult and BMB if persistent after nutrition status improved (5) Anemia Code(s): D64.9 - ANEMIA, UNSPECIFIED Comment: - H&H rebounded - Iron studies consistent with AOCD, no other abnormalities - Likely secondary to malnutrition - Continue omeprazole (6) Chronic malnutrition Code(s): E46 - UNSPECIFIED PROTEIN-CALORIE MALNUTRITION Comment: - Chronic, severe - NPO d/t severity of ulceration and GI recommendations - Continue TPN; appreciate input from Dietary and Pharmacy - Surrogate markers of nutrition improving (7) Bipolar disorder Code(s): F31.9 - BIPOLAR DISORDER, UNSPECIFIED Comment: - Continue bupropion, Seroquel, hydroxyzine (8) History of DVT (deep vein thrombosis) Code(s): Z86.718 - PERSONAL HISTORY OF OTHER VENOUS THROMBOSIS AND EMBOLISM Comment: - History of DVT August 2018 - No residual clot - Stop Eliquis due to DVT being provoked (9) Hypothyroidism Code(s): E03.9 - HYPOTHYROIDISM, UNSPECIFIED Comment: - Continue levothyroxine (10) DVT prophylaxis Code(s): Z29.9 - ENCOUNTER FOR PROPHYLACTIC MEASURES, UNSPECIFIED Comment: - Lovenox (11) Full code status Code(s): Z78.9 - OTHER SPECIFIED HEALTH STATUS Comment: Status and Disposition: Inpatient. Unclear how long she will require TPN and insurance will not cover home TPN. Possible d/c to [facility] status. Attending: Cha Garcia
[2019-05-12 16:06] LABS: Glucose 987 mg/dL (70-100)
[2019-05-13] MEDS: Morphine INJ* 2 MG/ML 1 ML SYRINGE (TWO MG - NEW SYRINGE VERSION) IV PRN ×4 (00:48→13:12)
[2019-05-13] MEDS: Levothyroxine TAB* 25 MCG TAB PO SCH (05:09)
[2019-05-13 06:03] LABS: BUN/Creatinine Ratio 34.6 (8-20); Calcium 7.9 mg/dL (8.6-10.3); EGFR African American 156.5 (>60); EGFR Non-African American 129.3 (>60); Potassium 3.9 mmol/L (3.5-5.0)
[2019-05-13] MEDS: Sucralfate SUSP 1 GM/10 ml 10 ML UDC PO SCH ×2 (08:24→12:27)
[2019-05-13] MEDS: Ondansetron INJ* 2 MG/ML VIAL IV PRN (09:02)
[2019-05-13] MEDS: LORazepam INJ* 2 MG/ML 1 ML VIAL IV PUSH PRN (10:35)
[2019-05-13] MEDS: Magnesium Oxide TAB* 400 MG PO SCH (10:41)
[2019-05-13] MEDS: BuPROPion XL* 300 MG TAB.XL PO SCH (10:41)
[2019-05-13] MEDS: QUEtiapine TAB* 100 MG PO SCH (10:41)
[2019-05-13] MEDS: Gabapentin CAP(*) 300 MG PO SCH (10:42)
[2019-05-13] MEDS: CMCS: Omeprazole CAP (NF) 20 MG CAP.DR PO SCH (10:43)
[2019-05-13] MEDS: Enoxaparin(*) 40 MG/0.4 ML SYR SUBCUT SCH (10:43)
[2019-05-13 13:02] VITALS: BP 82/54
[2019-05-13] MEDS ORDERED: TPN* 24 HR with Dextrose 50% Water* 500 ML, Amino Acid Infusion 10%* 850 ML, Sterile Wa... CENTR SCH ×12 (17:00)
--- NOTE | 2019-05-13 21:15 | DS ---
CC: Dr. Zac Adrian * DISCHARGE SUMMARY: DATE OF ADMISSION: 04/27/19 DATE OF DISCHARGE: 05/13/19 PRIMARY CARE PROVIDER: Dr. Zac Adrian. ATTENDING PHYSICIAN: Dr. Nikkie Murphy.* (DICTATED BY DENISA PLASCENCIA NP) PRIMARY DIAGNOSES: 1. Gastrojejunal ulcer. 2. Gastric outlet obstruction. 3. Chronic severe protein-calorie malnutrition. 4. Asymptomatic hypotension. 5. Hypomagnesemia. 6. Leukopenia. 7. Anemia of chronic disease. SECONDARY DIAGNOSES: 1. Bipolar disorder. 2. History of provoked deep vein thrombosis. 3. Hypothyroidism. STUDIES WHILE IN THE HOSPITAL: 1. Chest x-ray on 04/27/19 reads as no evidence for active cardiopulmonary disease. 2. EKG on 04/27/19 shows normal sinus rhythm with a rate of 85, QTC 476. No ST changes. 3. Abdomen x-ray on 04/27/19, reads as dilated loops of gas-filled bowel are similar in appearance to the most recent 04/19/19 abdominal radiograph. 4. Abdomen/pelvis CT on 04/28/19 reads as stable postoperative changes of gastric bypass surgery. No signs of bowel obstruction or bowel inflammatory change on the current exam. No other acute CT pathology. 5. Chest x-ray on 04/30/19, reads as status post PEG placement. No evidence for acute findings. 6. Bilateral lower extremity ultrasound on 05/06/19, reads as no evidence of deep vein thrombosis in the right lower extremity is noted. The left femoral vein and proximal mid and distal portion is small and partially compressible likely due to sequela from prior thrombus. CONSULTATIONS WHILE IN THE HOSPITAL: 1. Dr. Lyman from Surgery, on 04/28/19. 2. Dr. Jaquez from Gastroenterology, on 04/28/19. 3. Dr. Stanley from Surgery, on 04/29/19. 4. Dr. Dawkins from Gastroenterology, on 04/29/19. PROCEDURES WHILE IN THE HOSPITAL: 1. EGD on 04/29/19, reads as upper endoscopy to gastrojejunal anastomosis. The gastrojejunal anastomosis appeared structured and ulcerated. I was unable to fully assess the ulceration, as I could not advance the scope into the Marizol limb. I suspect that a large portion of the patient's nausea, vomiting, abdominal pain, and p.o. intolerant symptoms are related to this endoscopic finding. HISTORY OF PRESENT ILLNESS AND HOSPITAL COURSE: Ms. Callaway is a 43-year-old female with past medical history of bipolar PTSD, Maulik thyroiditis, GI bleed, provoked right lower extremity DVT, gastric bypass surgery approximately 20 years ago, and recurrent small bowel obstruction, who presented to the emergency room on 04/27/19 with complaints of abdominal pain. Please see the history and physical by Anya Curtis NP for complete summary of the events leading up to this hospitalization. In short, the patient was admitted to the facility from 04/16/19 to 04/24/19 due to concern for a small bowel obstruction versus ileus and potential stricture and ulceration of the anastomosis. Ultimately, she was discharged with instructions to continue Ensure and follow up with Surgery. However, she ultimately began having increased abdominal pain , nausea, and vomiting, and so presented to the emergency room. In the emergency room, she had imaging as noted above. She had lab work, which was noted to be consistent with labs from her previous hospitalization without any new significant findings, though because of her symptoms are inability to tolerate p.o. intake, she was admitted by the hospitalist service. Surgery and Gastroenterology were consulted and the patient was seen by multiple surgeons, who at that point did not feel as though any surgical intervention was necessary and also indicated that any surgical intervention could likely not be performed at this facility due to the complexity of her case. The patient was seen by Gastroenterology, who ultimately performed an EGD with results noted above. It was determined that the patient does have significant ulceration and stricture at her anastomosis site, which is causing near complete gastric outlet obstruction. At that point, they recommended that the patient should be n.p.o. and that she should be placed on TPN for management of nutritional needs. They did indicate that she would be able to take p.o. medications and did recommend Carafate and omeprazole. Ultimately, it was recommended that the patient have a repeat EGD at [facility] with fluoroscopy in 6 to 8 weeks to reassess her ulceration and potentially intervene on the stricture. Surgery did follow up with the patient and agreed with this plan. The patient did have a PICC line placed on 04/30/19 and TPN was started that day. She has been able to tolerate meds with sips of water and so, ultimately she was progressed to a clear liquid diet, though was limited to 1 L per day, as at this point, the clear liquids are simply for comfort and excessive p.o. intake could worsen her symptoms. The patient has had a persistent hypomagnesemia while here in the hospital, which has been repleted and at last check was noted to be normal. She also had persistent leukopenia. This is chronic and suspected to be due to her malnutrition. She is noted to have anemia, though iron studies are noted to be normal. So, this appears to be anemia of chronic disease, again due to chronic malnutrition. She additionally has had persistent hypotension while here in the hospital with systolic pressures down into the 70s, but has been asymptomatic the entire time. This also was likely due in part to malnutrition , so her blood pressure has been monitored closely. She additionally was started on midodrine. She was noted to have normal cortisol and thyroid function tests. Previously, the patient had been on Eliquis for a provoked DVT in August of 2018, though ultimately, her Eliquis was stopped, as she had been on anticoagulation for greater than 6 months and anticoagulation was no longer indicated for a provoked VTE event. There have been many psychosocial issues throughout this hospitalization. At this point, the patient is essentially homeless and does not have insurance, though social work and case management have been working closely with the patient. At this point, the patient is stable and doing well on TPN. So, it was determined that she is suitable for swing status. The patient does continue to report 7/10 abdominal pain, which is unchanged and has been using morphine to manage her pain. She additionally notes persistent anxiety for which she has been using hydroxyzine and lorazepam to manage her symptoms. Most recent vitals are as follows: Temp 98.1, heart rate 93, respiratory rate 20, oxygen saturation 100% on room air, blood pressure 82/54. DISCHARGE MEDICATIONS: 1. Bupropion 300 mg p.o. daily. 2. Lovenox 40 mg subcu daily. 3. Gabapentin 300 mg p.o. t.i.d. 4. Heparin flush per protocol. 5. Hydroxyzine 50 mg p.o. q.8 hours p.r.n. anxiety. 6. TPN continuous. 7. Levothyroxine 25 mcg p.o. daily. 8. Magnesium oxide 400 mg p.o. b.i.d. 9. Midodrine 5 mg p.o. b.i.d. 10. Omeprazole 40 mg p.o. b.i.d. 11. Ondansetron 4 mg sublingual q.6 hours p.r.n. nausea, vomiting. 12. Seroquel 100 mg p.o. b.i.d. 13. Carafate 1 g p.o. 4 times a day. DISCHARGE PLAN: Ms. Callaway will be discharged to swing status here at [facility]. ACTIVITY: As tolerated. DIET: Small amount of clear liquids for comfort and to take medications with a limit of 1 L per day. MEDICATIONS: Medications are noted above. DISCHARGE CONDITION: Stable. DISCHARGE DISPOSITION: [place] [facility] This is a summarized report of a complex medical history and hospital stay. For further details, please see the entire medical record. TIME SPENT: Approximately 60 minutes were spent on this discharge. DENISA PLASCENCIA, WOUND CARE RN [id number]/CPS #: [id number] ELISA
== END 2019-05-13 13:20 | disposition swing bed (61) | DRG 380 ==
LOC: ED 14:29 → MED 17:52
PROVIDERS: ADMIT Internal Medicine; ATTEND Internal Medicine
PROC: 0DJ08ZZ Inspection of Upper Intestinal Tract, Via Natural or Artificial Opening Endoscopic (ICD-10-PCS; 2019-04-29)
PROC: 02HV33Z Insertion of Infusion Device into Superior Vena Cava, Percutaneous Approach (ICD-10-PCS; principal; 2019-04-30)
PROC: 3E0436Z Introduction of Nutritional Substance into Central Vein, Percutaneous Approach (ICD-10-PCS; 2019-04-30)
DX: K28.9 Gastrojejunal ulcer, unspecified as acute or chronic, without hemorrhage or perforation (principal); E43 Unspecified severe protein-calorie malnutrition; K95.89 Other complications of other bariatric procedure; K31.1 Adult hypertrophic pyloric stenosis; F41.9 Anxiety disorder, unspecified; F43.10 Post-traumatic stress disorder, unspecified; F31.9 Bipolar disorder, unspecified; F17.210 Nicotine dependence, cigarettes, uncomplicated; E03.9 Hypothyroidism, unspecified; K21.9 Gastro-esophageal reflux disease without esophagitis; K58.9 Irritable bowel syndrome, unspecified; M19.90 Unspecified osteoarthritis, unspecified site; R62.7 Adult failure to thrive; Y83.8 Other surgical procedures as the cause of abnormal reaction of the patient, or of later complication, without mention of misadventure at the time of the procedure; D69.6 Thrombocytopenia, unspecified; E16.2 Hypoglycemia, unspecified; I95.9 Hypotension, unspecified; E83.42 Hypomagnesemia; M54.5 Low back pain; D72.819 Decreased white blood cell count, unspecified; D63.8 Anemia in other chronic diseases classified elsewhere; Z86.718 Personal history of other venous thrombosis and embolism; Z98.84 Bariatric surgery status; Z90.710 Acquired absence of both cervix and uterus; Z90.49 Acquired absence of other specified parts of digestive tract; Z88.8 Allergy status to other drugs, medicaments and biological substances; Z88.6 Allergy status to analgesic agent; Z88.1 Allergy status to other antibiotic agents; Z68.21 Body mass index [BMI] 21.0-21.9, adult; Y92.9 Unspecified place or not applicable; Z23 Encounter for immunization; Z79.01 Long term (current) use of anticoagulants
CPT/HCPCS: 36415; 71045; 74018; 74176; 80048; 80053; 80076; 82040; 82465; 82533; 82607; 82728; 82746; 83540; 83550; 83605; 83615; 83735; 84100; 84134; 84439; 84443; 84478; 84481; 84484; 85025; 85520; 85610; 87641; 90686; 93005; 93970; 96361; 96374; 99156; 99157; 99284; A9270-GY; J0780; J1200; J1650; J2060; J2250; J2270; J2405; J2997; J3010; J3411; J3475; J3480

== ENCOUNTER 2019-05-13 13:56 | Inpatient (IN) | payer MEDICARE ==
[2019-05-13] MEDS ORDERED: Morphine INJ* 2 MG/ML 1 ML SYRINGE (TWO MG - NEW SYRINGE VERSION) IV PRN (15:40)
[2019-05-13] MEDS ORDERED: Lorazepam PYXIS KEY PRN (15:40)
[2019-05-13] MEDS ORDERED: LORazepam INJ* 2 MG/ML 1 ML VIAL IV PUSH PRN (15:40)
[2019-05-13] MEDS: oxyCODONE TAB* 5 MG TAB PO PRN (16:41)
[2019-05-13] MEDS: LORazepam TAB(*) 0.5 MG PO PRN (16:41)
[2019-05-13] MEDS: Gabapentin CAP(*) 300 MG PO SCH ×2 (16:42→20:29)
[2019-05-13] MEDS: Sucralfate SUSP 1 GM/10 ml 10 ML UDC PO SCH ×2 (16:49→22:12)
[2019-05-13] MEDS: TPN CENTRAL STANDARD BASE A CENTR SCH ×12 (16:51)
--- NOTE | 2019-05-13 17:33 | PN ---
Progress Note - Progress Note Date of Service: 05/13/19 Note: GASTROENTEROLOGY NOTE Contacted by patient's primary team due to concerns re: discharge planning. Case reviewed. My recommendations are reviewed below for clarity. Patient was admitted with ongoing inability to tolerate po intake. Upper endoscopic evaluation x 2 while inpatient demonstrated gastro-jejunal anastomosis, which is strictured and ulcerated. The scope was unable to advance through the anastomosis. As a result of the strictured anastomosis, the patient has essentially developed a gastric outlet obstruction. Placement of a PEG in the gastric pouch would not be advised for this reason. It is my recommendation that patient be kept NPO with nutrition delivered via parenteral route (TPN) for at least 8 weeks. Patient will need PPI BID to heal the ulceration(s) as well as symptom control. She needs to be seen at an [facility] by surgery and gastroenterology for evaluation given the complexity of her surgical history and clinical course. I have recommended the bariatric surgery team at [facility] and the advanced gastroenterology providers also at [facility]. After this period of bowel rest and high dose PPI, these teams will need to determine the next steps, which may include repeat endoscopy with attempted dilation vs surgical revision. Please contact GI with any additional questions or concerns. Sharon Dawkins MD Gastroenterology
--- NOTE | 2019-05-13 20:00 | HP ---
CC: Dr. Zac dArian * HISTORY AND PHYSICAL: DATE OF ADMISSION: 05/13/19 PRIMARY CARE PROVIDER: Dr. Zac Adrian. ATTENDING PHYSICIAN: Dr. Nikkie Murphy.* (DICTATED BY DENISA PLASCENCIA NP) REASON FOR VISIT: TPN. HISTORY OF PRESENT ILLNESS: Ms. Callaway is a 43-year-old female with past medical history of bipolar, PTSD, provoked DVT, gastric bypass surgery and recurrent small bowel obstruction, who is being admitted today to [facility] for swing status. Please see the discharge summary by myself, dictated today, for complete details. In short, Ms. Callaway is noted to have significant ulceration and stricture at the gastrojejunal anastomosis site. For that reason, she has been started on TPN with recommendations from Gastroenterology to continue TPN for a total of 6 to 8 weeks. At this point, she has received 2 weeks while inpatient; TPN started on 04/30/19. She is being made swing status to receive the rest of the necessary TPN in the hopes that she can then undergo a repeat EGD at [facility] and hopefully repair of the stricture. PAST MEDICAL HISTORY: 1. Bipolar. 2. PTSD. 3. Maulik's thyroiditis. 4. GI bleed. 5. Provoked right lower extremity DVT in August 2018. 6. Recurrent small bowel obstructions. PAST SURGICAL HISTORY: 1. SMA repair. 2. Gastric bypass. 3. Appendectomy. 4. Hysterectomy. 5. Tubal ligation. 6. Cholecystectomy. 7. Hernia repairs. HOME MEDICATIONS: 1. Levothyroxine 25 mcg p.o. daily. 2. Gabapentin 300 mg p.o. t.i.d. 3. Docusate 100 mg p.o. b.i.d. 4. Seroquel 100 mg b.i.d. 5. Dicyclomine 10 mg t.i.d. p.r.n. 6. Bupropion XL 300 mg p.o. daily. 7. Hydroxyzine 50 mg q.8 hours p.r.n. 8. Carafate 1 g p.o. 4 times daily. 9. Omeprazole 20 mg p.o. b.i.d. ALLERGIES: ERYTHROMYCIN, REGLAN, NITROFURANTOIN, NSAIDs, and TERBUTALINE. FAMILY HISTORY: Mother with tachycardia and father with diabetes. SOCIAL HISTORY: The patient was a previous smoker though has not smoked since being hospitalized. Denies any illicit drug use. Her father would be her surrogate decision maker. She is currently homeless. REVIEW OF SYSTEMS: An 11-point review of systems was performed. The patient endorses nausea and 7/10 abdominal pain throughout. Review of systems is otherwise negative. PHYSICAL EXAMINATION GENERAL: Ms. Callaway is a well-developed, middle-aged female, lying in bed, in no acute distress. VITAL SIGNS: Temp 98.1, heart rate 93, respiratory rate 18, oxygen saturation 100% on room air, blood pressure 87/57. HEENT: Head is atraumatic, normocephalic. Visual lanier are grossly intact. Oral mucous membranes are moist. CARDIAC: Regular rate and rhythm. S1, S2 present. No murmurs, rubs, or gallops. RESPIRATORY: Symmetrical chest expansion. No chest wall deformities. Lungs are clear to auscultation throughout. No rhonchi, wheezes, or rubs. ABDOMEN: Diffusely tender throughout, though soft and nondistended. Bowel sounds are hypoactive. NEURO: Awake, alert, and oriented x4. Moves all extremities. Steady gait. DIAGNOSTIC STUDIES/LAB DATA: Please see prior visit. ASSESSMENT AND PLAN: Ms. Callaway is a 43-year-old female, with past medical history of bipolar, post-traumatic stress disorder, provoked deep vein thrombus , hypothyroidism and gastric bypass with multiple recurrent small bowel obstructions, who has been hospitalized at [facility] from 04/27/19 and is now being made swing status for: 1. 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 The patient will be continued on TPN for at least an additional 4 weeks until her nutritional status improves. Further guidance and input from Gastroenterology will be needed. At that point, the plan is for likely repeat EGD, which would need to be done at [facility]. The hope is that at that point, the ulcer is healed and the stricture can be repaired. 2. Hypotension. The patient was persistently hypotensive, though is asymptomatic. So, not a concern at this time, but we will continue to monitor her blood pressure closely. 3. Leukopenia. The patient has chronic leukopenia, likely due to malnutrition. There is no infection at this time. 4. Anemia. The patient has stable anemia of chronic disease. 5. Chronic protein-calorie malnutrition. The patient will receive TPN as indicated above with input from both pharmacy and dietary. 6. Bipolar disorder and posttraumatic stress disorder. Continue bupropion, hydroxyzine, lorazepam and Seroquel. 7. History of provoked deep vein thrombosis. DVT was in August 2018, and Eliquis has been stopped as that has been greater than 6 months since the provoked deep vein thrombosis. 8. Hypothyroidism. Continue levothyroxine. 9. FEN. Nutrition will be TPN as indicated above and electrolytes will be repleted through the TPN. 10. Code status. The patient will be a full code. 11. DVT prophylaxis. According to the DVT risk assessment, the patient's scores a 4, putting her at high risk. I have ordered Lovenox. TIME SPENT: Approximately 50 minutes were spent on this admission including reviewing prior records sent with the patient and developing a plan of care. The case has been reviewed with my attending, Dr. Murphy who is in agreement with the plan of care. DENISA PLASCENCIA, COMMUNITY SPORTS COORDINATOR [id number]/CPS #: [id number] ELISA
[2019-05-13] MEDS: OMEPRAZOLE 20 MG PO SCH (20:29)
[2019-05-13] MEDS: Magnesium Oxide TAB* 400 MG PO SCH (20:29)
[2019-05-13] MEDS: QUEtiapine TAB* 100 MG PO SCH (20:29)
[2019-05-14] MEDS: LORazepam TAB(*) 0.5 MG PO PRN ×4 (01:19→20:54)
[2019-05-14] MEDS: oxyCODONE TAB* 5 MG TAB PO PRN ×5 (01:19→20:54)
[2019-05-14] MEDS: Ondansetron INJ* 2 MG/ML VIAL IV PRN ×4 (01:20→20:56)
[2019-05-14] MEDS: Levothyroxine TAB* 25 MCG TAB PO SCH (05:50)
[2019-05-14 06:13] LABS: ABS Eosinophils 0.1 10^3/ul (0-0.6); ABS Monocytes 0.4 10^3/ul (0-0.8); Eosinophil % 2.8 %; Hematocrit 24 % (35-47); Hemoglobin 7.8 g/dL (12.0-16.0); Lymphocyte % 41.4 %; Mean Corpuscular HGB Conc 33 g/dL (31-36); Mean Corpuscular Hemoglobin 33 pg (27-31); Mean Corpuscular Volume 101 fL (80-97); Mean Platelet Volume 8.8 fL (7.4-10.4); Platelet Count 149 10^3/uL (150-450); Red Blood Count 2.35 10^6 /uL (3.70-4.87); Red Cell Distribution Width 19 % (10-15); White Blood Count 2.5 10^3/uL (3.5-10.8)
[2019-05-14 06:40] LABS: Albumin 2.7 g/dL (3.2-5.2); Albumin/Globulin Ratio 1.2 (1-3); BUN/Creatinine Ratio 32.1 (8-20); Calcium 8.2 mg/dL (8.6-10.3); EGFR African American 153.1 (>60); EGFR Non-African American 126.5 (>60); Globulin 2.2 g/dL (2-4); Potassium 4.3 mmol/L (3.5-5.0); Total Bilirubin 0.3 mg/dL (0.2-1.0); Total Protein 4.9 g/dL (6.4-8.9)
[2019-05-14] MEDS: Sucralfate SUSP 1 GM/10 ml 10 ML UDC PO SCH ×4 (07:43→20:55)
[2019-05-14] MEDS: Magnesium Oxide TAB* 400 MG PO SCH ×2 (08:00→20:54)
[2019-05-14] MEDS: BuPROPion XL* 300 MG TAB.XL PO SCH (08:57)
[2019-05-14] MEDS: OMEPRAZOLE 20 MG PO SCH ×2 (08:57→20:52)
[2019-05-14] MEDS: Gabapentin CAP(*) 300 MG PO SCH ×3 (08:57→20:52)
[2019-05-14] MEDS: QUEtiapine TAB* 100 MG PO SCH ×2 (08:58→20:54)
[2019-05-14] MEDS: Enoxaparin(*) 40 MG/0.4 ML SYR SUBCUT SCH (08:58)
[2019-05-14] MEDS: TPN CENTRAL STANDARD BASE A CENTR SCH ×12 (17:08)
[2019-05-15] MEDS: LORazepam TAB(*) 0.5 MG PO PRN ×4 (04:32→20:23)
[2019-05-15] MEDS: Ondansetron INJ* 2 MG/ML VIAL IV PRN ×3 (04:33→20:24)
[2019-05-15] MEDS: oxyCODONE TAB* 5 MG TAB PO PRN ×5 (04:33→20:24)
[2019-05-15] MEDS: Levothyroxine TAB* 25 MCG TAB PO SCH (05:49)
[2019-05-15] MEDS: Sucralfate SUSP 1 GM/10 ml 10 ML UDC PO SCH ×4 (07:37→20:34)
[2019-05-15] MEDS: Magnesium Oxide TAB* 400 MG PO SCH ×2 (09:22→20:35)
[2019-05-15] MEDS: Gabapentin CAP(*) 300 MG PO SCH ×3 (09:22→20:35)
[2019-05-15] MEDS: QUEtiapine TAB* 100 MG PO SCH ×2 (09:22→20:35)
[2019-05-15] MEDS: OMEPRAZOLE 20 MG PO SCH ×2 (09:23→20:34)
[2019-05-15] MEDS: BuPROPion XL* 300 MG TAB.XL PO SCH (09:23)
[2019-05-15] MEDS: Enoxaparin(*) 40 MG/0.4 ML SYR SUBCUT SCH (09:30)
--- NOTE | 2019-05-15 13:41 | PN ---
Progress Note - Progress Note Date of Service: 05/15/19 Note: Surgery Note: We were asked to clarify the current surgical issues for this patient on whom we had consulted during recent admission (see Dr. Lyman's consult from 04/28). This is in regard to the current treatment plan which is for TPN x 8 weeks , followed by repeat upper endoscopy and assessment of her ulcerated and strictured gastrojejuonostomy (see Dr. Dawkins's report from 04/29/19 and progress note from 05/13/19). There was a question of the feasibility of placement of a feeding gastrostomy tube to provide nutrition support. The patient has been admitted twice recently and now currently on swing status for abdominal pain and intractable vomiting, with a 60 to 70 # weight loss over the past 3- 6 months. Her prior surgeries have been at [facility] in [place] and consist of the following, based on outside records: open erica en y gastric bypass for morbid obesity 2001 one or more exploratory laparotomies with lysis of adhesions for bowel obstruction one or more laparotomies for repair of ventral hernia open duodenojejunostomy for SMA syndrome 2008 revision of duodenojejunostomy with a loop jejunostomy with pyloroplasty revision of jejunojejunostomy She is also noted on exam to have a reducible ventral hernia. Recent UGI study indicates patency of the jejunojejunostomy. The hazards related to a proposed feeding gastrostomy include the number of prior surgical interventions and the consequent adhesions and scarring, as well as the unknown condition of the other proximal anastomoses. She had also had a prior temporary feeding gastrostomy, which would add to the potential difficulty in obtaining clean access to the stomach remnant. For all of the above reasons, we would agree with the current plan, that is, 8 weeks of TPN, followed by repeat endoscopy with attempt at dilating the strictured gastrojejunal anastomosis, whether [place] [facility] [facility]. If this is unsuccessful, surgical revision of the GJ anastomosis may be advised, though again, recommendation may be for that intervention to be at a tertiary care hospital. This was discussed today with my attending, Dr. Lyman.
[2019-05-15] MEDS: TPN CENTRAL STANDARD BASE A CENTR SCH ×12 (17:51)
[2019-05-15 18:58] LABS: Albumin 2.6 g/dL (3.2-5.2); Calcium 7.9 mg/dL (8.6-10.3); Magnesium 1.5 mg/dL (1.9-2.7); Potassium 4.2 mmol/L (3.5-5.0); Total Bilirubin 0.2 mg/dL (0.2-1.0)
[2019-05-15 19:04] LABS: Albumin/Globulin Ratio 1.2 (1-3); EGFR African American 163.7 (>60); EGFR Non-African American 135.3 (>60); Globulin 2.1 g/dL (2-4); Phosphorus 3.9 mg/dL (2.5-5.0); Total Protein 4.7 g/dL (6.4-8.9)
[2019-05-16] MEDS: oxyCODONE TAB* 5 MG TAB PO PRN ×3 (05:25→18:29)
[2019-05-16] MEDS: Levothyroxine TAB* 25 MCG TAB PO SCH (05:26)
[2019-05-16] MEDS: Ondansetron INJ* 2 MG/ML VIAL IV PRN ×3 (05:26→18:30)
[2019-05-16] MEDS: LORazepam TAB(*) 0.5 MG PO PRN ×3 (05:26→18:29)
[2019-05-16] MEDS: Sucralfate SUSP 1 GM/10 ml 10 ML UDC PO SCH ×4 (07:54→22:40)
[2019-05-16] MEDS: OMEPRAZOLE 20 MG PO SCH ×2 (10:15→22:38)
[2019-05-16] MEDS: Enoxaparin(*) 40 MG/0.4 ML SYR SUBCUT SCH (10:15)
[2019-05-16] MEDS: QUEtiapine TAB* 100 MG PO SCH ×2 (10:16→22:38)
[2019-05-16] MEDS: Gabapentin CAP(*) 300 MG PO SCH ×3 (10:16→22:39)
[2019-05-16] MEDS: BuPROPion XL* 300 MG TAB.XL PO SCH (10:16)
[2019-05-16] MEDS: Magnesium Oxide TAB* 400 MG PO SCH ×2 (10:17→22:39)
[2019-05-16] MEDS ORDERED: Magnesium Sulfate IV* 3 GM in NS 0.9% 100 ML* 100 ML IVPB ONE (11:42)
[2019-05-16] MEDS: TPN CENTRAL STANDARD BASE A CENTR SCH ×12 (18:28)
[2019-05-17] MEDS: oxyCODONE TAB* 5 MG TAB PO PRN ×4 (03:55→22:14)
[2019-05-17] MEDS: LORazepam TAB(*) 0.5 MG PO PRN ×4 (03:56→22:13)
[2019-05-17] MEDS: Ondansetron INJ* 2 MG/ML VIAL IV PRN ×4 (03:56→22:14)
[2019-05-17] MEDS: Levothyroxine TAB* 25 MCG TAB PO SCH (05:15)
[2019-05-17] MEDS: Enoxaparin(*) 40 MG/0.4 ML SYR SUBCUT SCH (08:40)
[2019-05-17] MEDS: Sucralfate SUSP 1 GM/10 ml 10 ML UDC PO SCH ×4 (08:40→20:46)
[2019-05-17] MEDS: Magnesium Oxide TAB* 400 MG PO SCH ×2 (08:41→20:44)
[2019-05-17] MEDS: BuPROPion XL* 300 MG TAB.XL PO SCH (08:41)
[2019-05-17] MEDS: Gabapentin CAP(*) 300 MG PO SCH ×3 (08:41→20:44)
[2019-05-17] MEDS: OMEPRAZOLE 20 MG PO SCH ×2 (08:42→20:45)
[2019-05-17] MEDS: QUEtiapine TAB* 100 MG PO SCH ×2 (08:42→20:44)
[2019-05-17] MEDS: TPN CENTRAL STANDARD BASE A CENTR SCH ×12 (16:12)
[2019-05-18] MEDS: LORazepam TAB(*) 0.5 MG PO PRN ×3 (04:16→23:11)
[2019-05-18] MEDS: oxyCODONE TAB* 5 MG TAB PO PRN ×3 (04:16→23:11)
[2019-05-18] MEDS: Ondansetron INJ* 2 MG/ML VIAL IV PRN ×4 (04:20→23:11)
[2019-05-18] MEDS: Levothyroxine TAB* 25 MCG TAB PO SCH (05:30)
[2019-05-18] MEDS: Enoxaparin(*) 40 MG/0.4 ML SYR SUBCUT SCH (08:52)
[2019-05-18] MEDS: Sucralfate SUSP 1 GM/10 ml 10 ML UDC PO SCH ×4 (08:53→23:08)
[2019-05-18] MEDS: OMEPRAZOLE 20 MG PO SCH ×2 (08:53→21:35)
[2019-05-18] MEDS: QUEtiapine TAB* 100 MG PO SCH ×2 (08:53→21:36)
[2019-05-18] MEDS: Magnesium Oxide TAB* 400 MG PO SCH ×2 (08:53→21:36)
[2019-05-18] MEDS: BuPROPion XL* 300 MG TAB.XL PO SCH (08:53)
[2019-05-18] MEDS: Gabapentin CAP(*) 300 MG PO SCH ×3 (08:53→21:34)
[2019-05-18] MEDS: TPN CENTRAL STANDARD BASE A CENTR SCH ×12 (17:16)
[2019-05-19] MEDS: oxyCODONE TAB* 5 MG TAB PO PRN ×3 (05:47→17:52)
[2019-05-19] MEDS: Levothyroxine TAB* 25 MCG TAB PO SCH (05:47)
[2019-05-19] MEDS: Ondansetron INJ* 2 MG/ML VIAL IV PRN ×3 (05:47→17:47)
[2019-05-19] MEDS: LORazepam TAB(*) 0.5 MG PO PRN ×3 (05:47→17:53)
[2019-05-19 06:43] LABS: Albumin 2.7 g/dL (3.2-5.2); Magnesium 1.5 mg/dL (1.9-2.7); Potassium 4.3 mmol/L (3.5-5.0); Total Bilirubin 0.3 mg/dL (0.2-1.0)
[2019-05-19 06:49] LABS: Albumin/Globulin Ratio 1.2 (1-3); BUN/Creatinine Ratio 33.3 (8-20); EGFR African American 149.8 (>60); EGFR Non-African American 123.8 (>60); Globulin 2.2 g/dL (2-4); Phosphorus 4.9 mg/dL (2.5-5.0); Total Protein 4.9 g/dL (6.4-8.9)
[2019-05-19] MEDS ORDERED: Magnesium Sulf 4 GM/100 ML IV* 4,000 MG/100 ML BAG IVPB ONE (07:32)
[2019-05-19] MEDS: Sucralfate SUSP 1 GM/10 ml 10 ML UDC PO SCH ×4 (08:10→19:23)
[2019-05-19] MEDS ORDERED: TPN* 24 HR with Dextrose 50% Water* 500 ML, Amino Acid Infusion 10%* 850 ML, Sterile Wa... CENTR SCH ×12 (08:10)
[2019-05-19] MEDS: Gabapentin CAP(*) 300 MG PO SCH ×3 (08:11→21:36)
[2019-05-19] MEDS: BuPROPion XL* 300 MG TAB.XL PO SCH (08:11)
[2019-05-19] MEDS: OMEPRAZOLE 20 MG PO SCH ×2 (08:12→21:36)
[2019-05-19] MEDS: Magnesium Oxide TAB* 400 MG PO SCH ×2 (08:12→21:37)
[2019-05-19] MEDS: QUEtiapine TAB* 100 MG PO SCH ×2 (08:13→21:37)
[2019-05-19] MEDS: Enoxaparin(*) 40 MG/0.4 ML SYR SUBCUT SCH (08:30)
[2019-05-19] MEDS: TPN* 24 HR with Dextrose 50% Water* 500 ML, Amino Acid Infusion 10%* 850 ML, Sterile Wa... CENTR SCH ×12 (16:56)
[2019-05-20] MEDS: LORazepam TAB(*) 0.5 MG PO PRN ×4 (00:14→18:17)
[2019-05-20] MEDS: Ondansetron INJ* 2 MG/ML VIAL IV PRN ×4 (00:15→18:17)
[2019-05-20] MEDS: oxyCODONE TAB* 5 MG TAB PO PRN ×4 (00:15→18:17)
[2019-05-20] MEDS: Levothyroxine TAB* 25 MCG TAB PO SCH (06:19)
[2019-05-20] MEDS: Sucralfate SUSP 1 GM/10 ml 10 ML UDC PO SCH ×4 (08:08→19:27)
[2019-05-20] MEDS: BuPROPion XL* 300 MG TAB.XL PO SCH (09:26)
[2019-05-20] MEDS: OMEPRAZOLE 20 MG PO SCH ×2 (09:26→21:11)
[2019-05-20] MEDS: QUEtiapine TAB* 100 MG PO SCH ×2 (09:26→21:11)
[2019-05-20] MEDS: Gabapentin CAP(*) 300 MG PO SCH ×3 (09:26→21:11)
[2019-05-20] MEDS: Magnesium Oxide TAB* 400 MG PO SCH ×2 (09:26→21:11)
[2019-05-20] MEDS: Enoxaparin(*) 40 MG/0.4 ML SYR SUBCUT SCH (09:29)
--- NOTE | 2019-05-20 10:42 | PN ---
Subjective Date of Service: 05/20/19 Interval History: pt c/o pain in abd/epigastrium 01/14-constant, unchanged for several weeks. She also appears pleasant and cheerful without signs of any discomfort Had a BM within the past 24H Objective Active Medications: Bupropion HCl (Bupropion Xl*) 300 mg PO DAILY [facility] Last Admin: 05/20/19 09:26 Dose: 300 mg Enoxaparin Sodium (Lovenox(*)) 40 mg SUBCUT Q24H [facility] Last Admin: 05/20/19 09:29 Dose: 40 mg Gabapentin (Neurontin Cap(*)) 300 mg PO TID [facility] Last Admin: 05/20/19 09:26 Dose: 300 mg Heparin Sodium (Porcine) (Heparin Flush Picc/Ml/Cvc(*)) 1 - 3 ml FLUSH 0600, 1800 [facility]; Protocol Last Admin: 05/20/19 06:20 Dose: 2 ml Hydroxyzine HCl (Atarax Tab*) 50 mg PO Q8H PRN PRN Reason: .ANXIETY Dextrose 500 ml/ Amino Acids 850 ml/ Sterile Water 150 ml/Fat Emulsion Intravenous 250 ml/ Sodium Chloride 100 meq/Potassium Chloride 50 meq/Potassium Phosphate 5 mmole/Calcium Gluconate 15 meq/Magnesium Sulfate 20 meq/ Multivitamins 10 ml/ Trace Metals 1 ml/ Nutrition ( Parenteral) 1,[phone] mls @ 77.077 mls/hr CENTR 1700 [facility]; Protocol Last Admin: 05/19/19 16:56 Dose: 77.077 mls/hr Levothyroxine Sodium (Synthroid Tab*) 25 mcg PO DAILY@0600 [facility] Last Admin: 05/20/19 06:19 Dose: 25 mcg Lorazepam (Ativan Tab(*)) 0.5 mg PO Q6H PRN PRN Reason: ANXIETY Last Admin: 05/20/19 06:19 Dose: 0.5 mg Magnesium Oxide (Magox 400 Tab*) 400 mg PO BID [facility] Last Admin: 05/20/19 09:26 Dose: 400 mg Midodrine (Midodrine) 5 mg PO BID [facility] Last Admin: 05/20/19 09:26 Dose: 5 mg Omeprazole (Prilosec Cap* (Nf)) 40 mg PO BID [facility] Last Admin: 05/20/19 09:26 Dose: 40 mg Ondansetron HCl (Zofran Inj*) 4 mg IV Q6H PRN PRN Reason: NAUSEA Last Admin: 05/20/19 06:19 Dose: 4 mg Oxycodone HCl (Roxycodone Tab*) 5 mg PO Q6H PRN PRN Reason: PAIN - SEVERE Last Admin: 05/20/19 06:19 Dose: 5 mg Quetiapine Fumarate (Seroquel Tab*) 100 mg PO BID [facility] Last Admin: 05/20/19 09:26 Dose: 100 mg Sucralfate (Sucralfate Susp) 1 gm PO QID ACH[facility] Last Admin: 05/20/19 08:08 Dose: 1 gm Vital Signs - 8 hr 05/20/19 05/20/19 05/20/19 02:52 03:15 06:19 Temperature 97.9 F Pulse Rate 80 Respiratory 14 16 16 Rate Blood Pressure 80/52 (mmHg) O2 Sat by Pulse 100 Oximetry 05/20/19 05/20/19 05/20/19 08:00 08:27 09:15 Temperature 98.7 F Pulse Rate 85 Respiratory 18 16 18 Rate Blood Pressure 79/54 (mmHg) O2 Sat by Pulse 100 Oximetry 05/20/19 09:26 Temperature Pulse Rate Respiratory 16 Rate Blood Pressure (mmHg) O2 Sat by Pulse Oximetry Oxygen Devices in Use Now: None Appearance: 43 yo F in NAD, aAOx3 Eyes: No Scleral Icterus, PERRLA Ears/Nose/Mouth/Throat: NL Teeth, Lips, Gums, Mucous Membranes Moist Neck: NL Appearance and Movements; NL JVP, Trachea Midline Respiratory: Symmetrical Chest Expansion and Respiratory Effort, Clear to Auscultation Cardiovascular: NL Sounds; No Murmurs; No JVD, RRR Abdominal: NL Sounds; No Tenderness; No Distention Lymphatic: No Cervical Adenopathy Extremities: No Edema, No Clubbing, Cyanosis Skin: No Rash or Ulcers, No Nodules or Sclerosis Neurological: Alert and Oriented x 3, NL Muscle Strength and Tone - Nutrition: Malnutrition Diagnosis/Plan Malnutrition Assessment by Registered Dietitian: Malnutrition Assessment Clinical Characteristics Chronic,Severe Malnutrition Assessment: Muscle Wasting - Clavicular muscles (severe) Criteria Inadequate Oral Intake - 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 - anticipate meeting <75% nutrient needs >1 mo (severe) Unintentional Weight Loss - Pt reports >400lb wt loss 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, endorsing unintentional wt loss x4 mos; current wt 120lb, UBW 170lb x4 mos ago - 29.4% loss x4 mos ( severe ) Malnutrition Assessment: Nutrient Delivery - TPN ([employer] A) Interventions continues from prev adm; see Nutrition Support Assessment above for details; anticipate little risk for refeeding given extended period on nutrition support; will follow Labs - Will continue to monitor labs closely in the setting of TPN GI Related - Recommend continuing pain mgmt and antiemetics PRN in addition to d/c of clear liquid diet order, as continuous GI s/sx demonstrate inability of pt to tolerate po intake; will monitor GI s/sx for resolution and ability to revisit po feeding in the future Malnutrition Assessment: Goals 1) Adequate parenteral infusion to replete lean body mass and support hydration status 2) Improve fluid/electrolyte balance w/ adequate parenteral infusion 3) Maintain glycemic control w/ adequate parenteral infusion w/o s/sx hypo-/ hyperglycemia Result Diagrams: 05/14/19 06:08 05/19/19 05:30 Assess/Plan/Problems-Billing Assessment: Ms. Callaway is a 43 yo F with PMH of bipolar, PTSD, DVT, recurrent SBO; presented to the ER with abd pain, N/V unable to tolerate PO intake. Patient was recently admitted from 04/16/19 - 04/24/19 for ulcer at stomach anastomosis, possible stricture at anastomosis, severe protein-calorie malnutrition and is improving slowly on TPN. Plan is for 8 weeks of TPN followed by EGD at a tertiary care center - Patient Problems (1) Gastrojejunal ulcer Comment: - Multiple recent hospitalizations - EGD on 04/29/19 showing severe ulceration at anastomosis; unable to pass EGD scope to evaluate - Appreciate GI consult; recommends NPO except meds, PPI, no NSAIDS - Appreciate Surgery consult; no surgery at this time, agrees with NPO and TPN - Recommended f/u at [facility] with GI as outpatient for repeat EGD in 6-8 weeks - Continue TPN until symptoms nakul and is able to tolerate adequate oral intake. - Outpatient TPN not an option per Case Management as the patient does not have a home to go to and limited motivation for independent medical care; home TPN not an option per Medicare - Continue Amandeep morphine, omeprazole, Carafate (2) Anemia Comment: - Iron studies consistent with AOCD, no other abnormalities - Likely secondary to malnutrition - Continue omeprazole (3) Bipolar disorder Comment: - Continue bupropion, Seroquel, hydroxyzine (4) Chronic malnutrition Comment: - Chronic, severe - NPO d/t severity of ulceration and GI recommendations - Continue TPN; appreciate input from Dietary and Pharmacy - Surrogate markers of nutrition improving (5) History of DVT (deep vein thrombosis) Comment: - History of DVT August 2018 - No residual clot (6) Hypomagnesemia Comment: - Repleting - TPN mag dosing is at recommended max - Continue mag oxide BID (7) Hypotension Comment: - Asymptomatic - Likely due to malnutrition - Cortisol and TFT normal - Continue midodrine (8) Hypothyroidism Comment: - Continue levothyroxine (9) Leukopenia Comment: - Chronic, likely due to malnutrition - May need Heme/Onc consult and BMB if persistent after nutrition status improved (10) Thrombocytopenia Comment: -f/u CBC in aM - HIT antibodies negative (11) DVT prophylaxis Comment: - Lovenox Status and Disposition: pt was placed on [facility] bed status on and will be f/u weekly
[2019-05-20] MEDS: TPN* 24 HR with Dextrose 50% Water* 500 ML, Amino Acid Infusion 10%* 850 ML, Sterile Wa... CENTR SCH ×12 (18:16)
[2019-05-21] MEDS: oxyCODONE TAB* 5 MG TAB PO PRN ×4 (00:34→17:55)
[2019-05-21] MEDS: Ondansetron INJ* 2 MG/ML VIAL IV PRN ×4 (00:34→17:55)
[2019-05-21] MEDS: LORazepam TAB(*) 0.5 MG PO PRN ×4 (00:34→17:54)
[2019-05-21] MEDS ORDERED: Alteplase (CATHFLO)* 2 MG VIAL IV ONE (04:30)
[2019-05-21 06:53] LABS: ABS Eosinophils 0.1 10^3/ul (0-0.6); ABS Lymphocytes 1.2 10^3/ul (1.0-4.8); ABS Monocytes 0.4 10^3/ul (0-0.8); ABS Neutrophils 1.4 10^3/ul (1.5-7.7); Eosinophil % 1.8 %; Hematocrit 23 % (35-47); Hemoglobin 7.7 g/dL (12.0-16.0); Lymphocyte % 38.7 %; Mean Corpuscular HGB Conc 34 g/dL (31-36); Mean Corpuscular Hemoglobin 34 pg (27-31); Mean Corpuscular Volume 101 fL (80-97); Mean Platelet Volume 9.3 fL (7.4-10.4); Nucleated Red Blood Cells % 0.1; Platelet Count 148 10^3/uL (150-450); Red Blood Count 2.27 10^6 /uL (3.70-4.87); Red Cell Distribution Width 19 % (10-15)
[2019-05-21] MEDS: Sucralfate SUSP 1 GM/10 ml 10 ML UDC PO SCH ×4 (07:38→22:18)
[2019-05-21] MEDS: Enoxaparin(*) 40 MG/0.4 ML SYR SUBCUT SCH (09:12)
[2019-05-21] MEDS: QUEtiapine TAB* 100 MG PO SCH ×2 (09:13→22:15)
[2019-05-21] MEDS: Gabapentin CAP(*) 300 MG PO SCH ×3 (09:13→22:16)
[2019-05-21] MEDS: BuPROPion XL* 300 MG TAB.XL PO SCH (09:13)
[2019-05-21] MEDS: Magnesium Oxide TAB* 400 MG PO SCH ×2 (09:13→22:16)
[2019-05-21] MEDS: OMEPRAZOLE 20 MG PO SCH ×2 (09:19→22:17)
[2019-05-21] MEDS: Levothyroxine TAB* 25 MCG TAB PO SCH (10:24)
[2019-05-21] MEDS: TPN* 24 HR with Dextrose 50% Water* 500 ML, Amino Acid Infusion 10%* 850 ML, Sterile Wa... CENTR SCH ×12 (17:56)
[2019-05-21] MEDS: hydrOXYzine HCL TAB* 50 MG PO PRN (22:15)
[2019-05-22] MEDS: Ondansetron INJ* 2 MG/ML VIAL IV PRN ×3 (00:33→19:48)
[2019-05-22] MEDS: oxyCODONE TAB* 5 MG TAB PO PRN ×4 (00:33→19:48)
[2019-05-22] MEDS: LORazepam TAB(*) 0.5 MG PO PRN ×4 (00:41→19:48)
[2019-05-22 06:57] LABS: Albumin 2.7 g/dL (3.2-5.2); Calcium 8.1 mg/dL (8.6-10.3); Magnesium 1.6 mg/dL (1.9-2.7); Total Bilirubin 0.3 mg/dL (0.2-1.0)
[2019-05-22] MEDS: Levothyroxine TAB* 25 MCG TAB PO SCH (07:00)
[2019-05-22 07:03] LABS: Albumin/Globulin Ratio 1.4 (1-3); BUN/Creatinine Ratio 27.8 (8-20); EGFR African American 149.8 (>60); EGFR Non-African American 123.8 (>60); Phosphorus 4.4 mg/dL (2.5-5.0); Total Protein 4.7 g/dL (6.4-8.9)
[2019-05-22] MEDS: Sucralfate SUSP 1 GM/10 ml 10 ML UDC PO SCH ×4 (08:45→21:35)
[2019-05-22] MEDS: Enoxaparin(*) 40 MG/0.4 ML SYR SUBCUT SCH (08:45)
[2019-05-22] MEDS: OMEPRAZOLE 20 MG PO SCH ×2 (08:46→21:37)
[2019-05-22] MEDS: Magnesium Oxide TAB* 400 MG PO SCH ×2 (08:46→21:36)
[2019-05-22] MEDS: Gabapentin CAP(*) 300 MG PO SCH ×3 (08:46→21:36)
[2019-05-22] MEDS: BuPROPion XL* 300 MG TAB.XL PO SCH (08:46)
[2019-05-22] MEDS: QUEtiapine TAB* 100 MG PO SCH ×2 (08:46→21:36)
[2019-05-22] MEDS ORDERED: Magnesium Sulfate 4 GM IV IVPB ONE (11:00)
[2019-05-22] MEDS: TPN* 24 HR with Dextrose 50% Water* 500 ML, Amino Acid Infusion 10%* 850 ML, Sterile Wa... CENTR SCH ×12 (17:23)
[2019-05-22] MEDS: hydrOXYzine HCL TAB* 50 MG PO PRN (18:14)
[2019-05-23] MEDS: hydrOXYzine HCL TAB* 50 MG PO PRN ×2 (00:55→20:01)
[2019-05-23] MEDS: Levothyroxine TAB* 25 MCG TAB PO SCH (05:29)
[2019-05-23] MEDS: Sucralfate SUSP 1 GM/10 ml 10 ML UDC PO SCH ×4 (09:09→21:36)
[2019-05-23] MEDS: LORazepam TAB(*) 0.5 MG PO PRN ×3 (09:11→21:37)
[2019-05-23] MEDS: oxyCODONE TAB* 5 MG TAB PO PRN ×3 (09:11→21:38)
[2019-05-23] MEDS: Magnesium Oxide TAB* 400 MG PO SCH ×2 (09:11→21:37)
[2019-05-23] MEDS: Gabapentin CAP(*) 300 MG PO SCH ×3 (09:11→21:38)
[2019-05-23] MEDS: Ondansetron INJ* 2 MG/ML VIAL IV PRN ×3 (09:12→21:40)
[2019-05-23] MEDS: QUEtiapine TAB* 100 MG PO SCH ×2 (09:12→21:38)
[2019-05-23] MEDS: BuPROPion XL* 300 MG TAB.XL PO SCH (09:13)
[2019-05-23] MEDS: Enoxaparin(*) 40 MG/0.4 ML SYR SUBCUT SCH (09:13)
[2019-05-23] MEDS: OMEPRAZOLE 20 MG PO SCH ×2 (09:16→21:37)
[2019-05-23] MEDS: TPN* 24 HR with Dextrose 50% Water* 500 ML, Amino Acid Infusion 10%* 850 ML, Sterile Wa... CENTR SCH ×12 (17:53)
[2019-05-24] MEDS: Ondansetron INJ* 2 MG/ML VIAL IV PRN ×4 (04:02→23:47)
[2019-05-24] MEDS: oxyCODONE TAB* 5 MG TAB PO PRN ×4 (04:02→23:50)
[2019-05-24] MEDS: LORazepam TAB(*) 0.5 MG PO PRN ×4 (04:03→23:49)
[2019-05-24] MEDS: Levothyroxine TAB* 25 MCG TAB PO SCH (04:45)
[2019-05-24] MEDS: hydrOXYzine HCL TAB* 50 MG PO PRN ×2 (07:48→15:22)
[2019-05-24] MEDS: BuPROPion XL* 300 MG TAB.XL PO SCH (07:48)
[2019-05-24] MEDS: Gabapentin CAP(*) 300 MG PO SCH ×3 (07:48→20:58)
[2019-05-24] MEDS: QUEtiapine TAB* 100 MG PO SCH ×2 (07:48→20:59)
[2019-05-24] MEDS: Magnesium Oxide TAB* 400 MG PO SCH ×2 (07:48→20:59)
[2019-05-24] MEDS: Enoxaparin(*) 40 MG/0.4 ML SYR SUBCUT SCH (07:49)
[2019-05-24] MEDS: OMEPRAZOLE 20 MG PO SCH ×2 (07:52→20:58)
[2019-05-24] MEDS: Sucralfate SUSP 1 GM/10 ml 10 ML UDC PO SCH ×4 (07:55→22:24)
[2019-05-24] MEDS: TPN* 24 HR with Dextrose 50% Water* 500 ML, Amino Acid Infusion 10%* 850 ML, Sterile Wa... CENTR SCH ×12 (17:29)
[2019-05-25] MEDS: Ondansetron INJ* 2 MG/ML VIAL IV PRN ×3 (05:42→21:58)
[2019-05-25] MEDS: oxyCODONE TAB* 5 MG TAB PO PRN ×3 (05:48→17:50)
[2019-05-25] MEDS: Levothyroxine TAB* 25 MCG TAB PO SCH (05:48)
[2019-05-25] MEDS: LORazepam TAB(*) 0.5 MG PO PRN ×3 (05:49→17:50)
[2019-05-25] MEDS: Acetaminophen TAB* 325 MG PO PRN ×3 (06:49→21:36)
[2019-05-25 07:00] LABS: Hematocrit 22 % (35-47); Hemoglobin 7.3 g/dL (12.0-16.0); Mean Corpuscular HGB Conc 33 g/dL (31-36); Mean Corpuscular Hemoglobin 33 pg (27-31); Mean Corpuscular Volume 98 fL (80-97); Red Blood Count 2.24 10^6 /uL (3.70-4.87); Red Cell Distribution Width 17 % (10-15); White Blood Count 2.5 10^3/uL (3.5-10.8)
[2019-05-25 07:11] LABS: BUN/Creatinine Ratio 23.3 (8-20); Calcium 7.9 mg/dL (8.6-10.3); EGFR African American 132.7 (>60); EGFR Non-African American 109.6 (>60); Potassium 3.6 mmol/L (3.5-5.0)
[2019-05-25 07:25] LABS: ABS Lymphocytes 0.1 10^3/ul (1.0-4.8); ABS Monocytes 0.3 10^3/ul (0-0.8); ABS Neutrophils 2.2 10^3/ul (1.5-7.7); Eosinophil % 0.9 %; Mean Platelet Volume 9.1 fL (7.4-10.4); Nucleated Red Blood Cells % 0.1; Platelet Count 82 10^3/uL (150-450)
[2019-05-25] MEDS: Sucralfate SUSP 1 GM/10 ml 10 ML UDC PO SCH ×4 (08:17→22:56)
[2019-05-25] MEDS: OMEPRAZOLE 20 MG PO SCH ×2 (10:03→21:56)
[2019-05-25] MEDS: QUEtiapine TAB* 100 MG PO SCH ×2 (10:03→21:56)
[2019-05-25] MEDS: Magnesium Oxide TAB* 400 MG PO SCH ×2 (10:03→21:55)
[2019-05-25] MEDS: hydrOXYzine HCL TAB* 50 MG PO PRN ×2 (10:03→22:01)
[2019-05-25] MEDS: Gabapentin CAP(*) 300 MG PO SCH ×3 (10:04→21:54)
[2019-05-25] MEDS: BuPROPion XL* 300 MG TAB.XL PO SCH (10:04)
[2019-05-25] MEDS: Enoxaparin(*) 40 MG/0.4 ML SYR SUBCUT SCH (10:06)
[2019-05-25] MEDS ORDERED: Piperacillin/Tazobac ADVAN(*) 3.375 GM in NS 0.9% 100 ML* 100 ML IVPB ONE (12:52)
[2019-05-25] MEDS ORDERED: Vancomycin per Pharmacy* NOTE FOLLOW UP SCH (13:00)
[2019-05-25] MEDS ORDERED: Zosyn per Pharmacy* NOTE FOLLOW UP SCH (13:00)
[2019-05-25] MEDS ORDERED: NS 0.9% 1000 ML** 1,000 ML IV ONE (13:16)
[2019-05-25] MEDS ORDERED: Vancomycin(*) 1,000 MG in NS 0.9% 250 ML* 250 ML IVPB ONE (13:30)
[2019-05-25 13:58] LABS: Albumin 2.7 g/dL (3.2-5.2); Albumin/Globulin Ratio 1.1 (1-3); BUN/Creatinine Ratio 24.1 (8-20); Calcium 7.7 mg/dL (8.6-10.3); EGFR African American 137.9 (>60); Globulin 2.5 g/dL (2-4); Potassium 3.7 mmol/L (3.5-5.0); Total Protein 5.2 g/dL (6.4-8.9)
[2019-05-25] MEDS ORDERED: Morphine INJ* 2 MG/ML 1 ML SYRINGE (TWO MG - NEW SYRINGE VERSION) IV PRN (14:03)
[2019-05-25] MEDS: Cefepime 1 GM in Dextrose(*) 1 GM/50 ML BAG IV SCH (14:42)
[2019-05-25] MEDS: TPN* 24 HR with Dextrose 50% Water* 500 ML, Amino Acid Infusion 10%* 850 ML, Sterile Wa... CENTR SCH ×12 (17:56)
--- NOTE | 2019-05-25 19:12 | PN ---
Subjective Date of Service: 05/25/19 Interval History: Patient with fevers today T-max 103.6, tachycardic with low WBC's Sepsis workup being completed. blood cultures , urine culture, chest xray. Lactic acid within normal limits. patient was given 1 liter of normal saline fluid bolus. CT of the abd /pelvis pending - started on vancomycin and cefepime fever of unclear origin as this time at this time. Patient c/o fever , chills, abd pain, neck pain, back pain , joint pain. Denies chest pain or shortness of breath. Family History: Unchanged from Admission Social History: Unchanged from Admission Past Medical History: Unchanged from Admission Objective Active Medications: Acetaminophen (Tylenol Tab*) 650 mg PO Q6H PRN PRN Reason: TEMPERATURE > 100.4 Last Admin: 05/25/19 14:22 Dose: 650 mg Bupropion HCl (Bupropion Xl*) 300 mg PO DAILY [facility] Last Admin: 05/25/19 10:04 Dose: 300 mg Enoxaparin Sodium (Lovenox(*)) 40 mg SUBCUT Q24H [facility] Last Admin: 05/25/19 10:06 Dose: 40 mg Gabapentin (Neurontin Cap(*)) 300 mg PO TID [facility] Last Admin: 05/25/19 17:48 Dose: 300 mg Heparin Sodium (Porcine) (Heparin Flush Picc/Ml/Cvc(*)) 1 - 3 ml FLUSH 0600, 1800 [facility]; Protocol Last Admin: 05/25/19 17:56 Dose: 1 ml Hydroxyzine HCl (Atarax Tab*) 50 mg PO Q8H PRN PRN Reason: .ANXIETY Last Admin: 05/25/19 10:03 Dose: 50 mg Dextrose 500 ml/ Amino Acids 850 ml/ Sterile Water 150 ml/Fat Emulsion Intravenous 250 ml/ Sodium Chloride 100 meq/Potassium Chloride 50 meq/Potassium Phosphate 5 mmole/Calcium Gluconate 15 meq/Magnesium Sulfate 20 meq/ Multivitamins 10 ml/ Trace Metals 1 ml/ Nutrition ( Parenteral) 1,849.8508 mls @ 77.077 mls/hr [facility] 1700 [facility]; Protocol Last Admin: 05/25/19 17:56 Dose: 77.077 mls/hr Cefepime HCl (Maxipime 1 Gm In Dextrose Duplex (*)) 1 gm in 50 mls @ 100 mls/ hr IV Q12H [facility] Last Admin: 05/25/19 14:42 Dose: 100 mls/hr Vancomycin HCl 750 mg/ Sodium (Chloride) 250 mls @ 166.667 mls/hr IVPB Q8H [facility] Levothyroxine Sodium (Synthroid Tab*) 25 mcg PO DAILY@0600 [facility] Last Admin: 05/25/19 05:48 Dose: 25 mcg Lorazepam (Ativan Tab(*)) 0.5 mg PO Q6H PRN PRN Reason: ANXIETY Last Admin: 05/25/19 17:50 Dose: 0.5 mg Magnesium Oxide (Magox 400 Tab*) 400 mg PO BID [facility] Last Admin: 05/25/19 10:03 Dose: 400 mg Midodrine (Midodrine) 5 mg PO BID [facility] Morphine Sulfate (Morphine Inj (Syringe))*) 2 mg IV ONCE PRN PRN Reason: PAIN - SEVERE Last Admin: 05/25/19 14:40 Dose: 2 mg Omeprazole (Prilosec Cap* (Nf)) 40 mg PO BID [facility] Last Admin: 05/25/19 10:03 Dose: 40 mg Ondansetron HCl (Zofran Inj*) 4 mg IV Q6H PRN PRN Reason: NAUSEA Last Admin: 05/25/19 11:10 Dose: 4 mg Oxycodone HCl (Roxycodone Tab*) 5 mg PO Q6H PRN PRN Reason: PAIN - SEVERE Last Admin: 05/25/19 17:50 Dose: 5 mg Pharmacy Consult (Vancomycin Per Pharmacy*) 1 note FOLLOW UP .VANC PER PHARMACY [facility]; Protocol Pharmacy Profile Note (Vancomycin Trough Check) 1 note FOLLOW UP 1330 ONE Stop: 05/26/19 13:31 Quetiapine Fumarate (Seroquel Tab*) 100 mg PO BID [facility] Last Admin: 05/25/19 10:03 Dose: 100 mg Sucralfate (Sucralfate Susp) 1 gm PO QID ACHS [facility] Last Admin: 05/25/19 17:40 Dose: 1 gm Vital Signs - 8 hr 05/25/19 05/25/19 05/25/19 10:57 11:53 14:09 Temperature 101.6 F 103.6 F Respiratory 20 Rate 05/25/19 05/25/19 05/25/19 14:40 17:48 17:50 Temperature Respiratory 18 20 20 Rate Oxygen Devices in Use Now: None Appearance: pale, alert and oriented resting in bed, no acute distress Eyes: No Scleral Icterus Ears/Nose/Mouth/Throat: Mucous Membranes Moist Neck: NL Appearance and Movements; NL JVP, Trachea Midline Respiratory: Symmetrical Chest Expansion and Respiratory Effort, Clear to Auscultation Cardiovascular: NL Sounds; No Murmurs; No JVD, No Edema Abdominal: - - c/o lower abd tenderness with palpation, abd soft, flat , bs active x 4 Extremities: No Edema, No Clubbing, Cyanosis Skin: No Rash or Ulcers Neurological: Alert and Oriented x 3 Nutrition: Taking PO's - Nutrition: Malnutrition Diagnosis/Plan Malnutrition Assessment by Registered Dietitian: Malnutrition Assessment Clinical Characteristics Chronic,Severe Malnutrition Assessment: Muscle Wasting - Clavicular muscles (severe) Criteria Inadequate Oral Intake - 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 - anticipate meeting <75% nutrient needs >1 mo (severe) Unintentional Weight Loss - Pt reports >400lb wt loss 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, endorsing unintentional wt loss x4 mos; current wt 120lb, UBW 170lb x4 mos ago - 29.4% loss x4 mos ( severe ) Malnutrition Assessment: Nutrient Delivery - TPN ([facility] [employer] A) Interventions continues from prev adm; see Nutrition Support Assessment above for details; anticipate little risk for refeeding given extended period on nutrition support; will follow Labs - Will continue to monitor labs closely in the setting of TPN GI Related - Recommend continuing pain mgmt and antiemetics PRN in addition to d/c of clear liquid diet order, as continuous GI s/sx demonstrate inability of pt to tolerate po intake; will monitor GI s/sx for resolution and ability to revisit po feeding in the future Malnutrition Assessment: Goals 1) Adequate parenteral infusion to replete lean body mass and support hydration status 2) Improve fluid/electrolyte balance w/ adequate parenteral infusion 3) Maintain glycemic control w/ adequate parenteral infusion w/o s/sx hypo-/ hyperglycemia Result Diagrams: 05/26/19 09:54 05/26/19 05:38 Assess/Plan/Problems-Billing Assessment: Ms. Callaway is a 43 yo F with PMH of bipolar, PTSD, DVT, recurrent SBO; presented to the ER with abd pain, N/V unable to tolerate PO intake. Patient was recently admitted from 04/16/19 - 04/24/19 for ulcer at stomach anastomosis, possible stricture at anastomosis, severe protein-calorie malnutrition and is improving slowly on TPN. Plan is for 8 weeks of TPN followed by EGD at a tertiary care center - Patient Problems (1) Fever Status: Acute Code(s): R50.9 - FEVER, UNSPECIFIED SNOMED Code(s): 578745862 Comment: patient is meeting SIRS criteria with lower WBC's , fever, tacycardia - no clear source - started vancomycin and cefepime - CT abd /pelvis with contrast- showed free fluid in the pelvis - will get pelvic ultrasound - patient does have a PICC line - blood culture was taken from the PICC is pending- as this could be a source of infection - patient c/o neck and back pain which is chronic for the patient - no nuchal rigidity , able to move head side to side.- will hold on getting LP at this time - UA is pending - chest x ray - negative (2) Anemia Status: Acute Code(s): D64.9 - ANEMIA, UNSPECIFIED SNOMED Code(s): 268283313 Comment: - Iron studies consistent with AOCD, no other abnormalities - Likely secondary to malnutrition - Continue omeprazole (3) Bipolar disorder Status: Acute Code(s): F31.9 - BIPOLAR DISORDER, UNSPECIFIED SNOMED Code(s) : 54903794 Comment: - Continue bupropion, Seroquel, hydroxyzine (4) Gastrojejunal ulcer Status: Acute Code(s): K28.9 - GASTROJEJUNAL ULCER, UNSP ACUTE OR CHR, W/O HEMOR OR PERF SNOMED Code(s): 63567105 Comment: - Multiple recent hospitalizations - EGD on 04/29/19 showing severe ulceration at anastomosis; unable to pass EGD scope to evaluate - Appreciate GI consult; recommends clear liquids, PPI, no NSAIDS - Appreciate Surgery consult; no surgery at this time, agrees with NPO and TPN - Recommended f/u at [facility] with [facility] as outpatient for repeat EGD in 6-8 weeks - Continue TPN until symptoms nakul and is able to tolerate adequate oral intake. - Outpatient TPN not an option per Case Management as the patient does not have a home to go to and limited motivation for independent medical care; home TPN not an option per Medicare - Continue Zofran, omeprazole, Carafate (5) Hypothyroidism Status: Acute Code(s): E03.9 - HYPOTHYROIDISM, UNSPECIFIED SNOMED Code(s): 38370893 Comment: - Continue levothyroxine (6) Leukopenia Status: Acute Code(s): D72.819 - DECREASED WHITE BLOOD CELL COUNT, UNSPECIFIED SNOMED Code(s): 03367172 Comment: - Chronic, likely due to malnutrition - May need Heme/Onc consult and BMB if persistent after nutrition status improved (7) Thrombocytopenia Status: Acute Code(s): D69.6 - THROMBOCYTOPENIA, UNSPECIFIED SNOMED Code(s) : 223112738 Comment: -f/u CBC in aM - HIT antibodies negative (8) DVT prophylaxis Status: Acute Code(s): Z29.9 - ENCOUNTER FOR PROPHYLACTIC MEASURES, UNSPECIFIED SNOMED Code(s): 257382316 Comment: - Lovenox (9) Full code status Status: Acute Code(s): Z78.9 - OTHER SPECIFIED HEALTH STATUS SNOMED Code(s) : 665064967 Comment: Status and Disposition: pt was placed on SWING bed status on and will be f/u weekly
[2019-05-25 20:25] LABS: Influenza A Molecular NEGATIVE (Negative); Influenza B Molecular NEGATIVE (Negative)
[2019-05-25] MEDS: Vancomycin(*) 750 MG in NS 0.9% 250 ML* 250 ML IVPB SCH (21:23)
[2019-05-25] MEDS: NS 0.9% 1000 ML** 1,000 ML IV SCH (22:19)
[2019-05-26] MEDS: oxyCODONE TAB* 5 MG TAB PO PRN ×2 (00:11→12:09)
[2019-05-26] MEDS: Cefepime 1 GM in Dextrose(*) 1 GM/50 ML BAG IV SCH ×2 (00:12→12:30)
[2019-05-26] MEDS ORDERED: fentaNYL* 50 MCG/ML 2 ML VIAL (100 MCG VIAL) IV SLOW PU ONE (01:44)
[2019-05-26 03:28] LABS: Urine Appearance Cloudy; Urine Bilirubin Negative (Negative); Urine Blood Negative (Negative); Urine Color Yellow; Urine Glucose Negative (Negative); Urine Ketones Negative (Negative); Urine Nitrite Negative (Negative); Urine Protein Negative (Negative); Urine Specific Gravity 1.009 (1.010-1.030); Urine Urobilinogen Negative (Negative)
[2019-05-26 03:48] LABS: Urine Benzodiazepine Screen None Detected (None Detect); Urine Opiates Screen Presumptive Positive (None Detect)
[2019-05-26] MEDS: Levothyroxine TAB* 25 MCG TAB PO SCH (06:03)
[2019-05-26] MEDS: Vancomycin(*) 750 MG in NS 0.9% 250 ML* 250 ML IVPB SCH (06:04)
[2019-05-26 06:23] LABS: Albumin 2.9 g/dL (3.2-5.2); BUN/Creatinine Ratio 19.7 (8-20); EGFR African American 118.8 (>60); EGFR Non-African American 98.2 (>60); Globulin 2.9 g/dL (2-4); Magnesium 1.7 mg/dL (1.9-2.7); Phosphorus 2.4 mg/dL (2.5-5.0); Potassium 3.7 mmol/L (3.5-5.0); Total Bilirubin 1.2 mg/dL (0.2-1.0); Total Protein 5.8 g/dL (6.4-8.9)
[2019-05-26] MEDS: Enoxaparin(*) 40 MG/0.4 ML SYR SUBCUT SCH (07:29)
[2019-05-26] MEDS: Sucralfate SUSP 1 GM/10 ml 10 ML UDC PO SCH ×2 (07:29→12:08)
[2019-05-26] MEDS: OMEPRAZOLE 20 MG PO SCH (07:29)
[2019-05-26] MEDS: BuPROPion XL* 300 MG TAB.XL PO SCH (07:30)
[2019-05-26] MEDS: Gabapentin CAP(*) 300 MG PO SCH (07:30)
[2019-05-26] MEDS: Magnesium Oxide TAB* 400 MG PO SCH (07:30)
[2019-05-26] MEDS: QUEtiapine TAB* 100 MG PO SCH (07:31)
[2019-05-26] MEDS: NS 0.9% 1000 ML** 1,000 ML IV SCH (08:52)
[2019-05-26 10:18] LABS: Hematocrit 22 % (35-47); Hemoglobin 7.2 g/dL (12.0-16.0); Mean Corpuscular HGB Conc 32 g/dL (31-36); Mean Corpuscular Hemoglobin 33 pg (27-31); Mean Corpuscular Volume 103 fL (80-97); Mean Platelet Volume 9.7 fL (7.4-10.4); Platelet Count 45 10^3/uL (150-450); Red Blood Count 2.19 10^6 /uL (3.70-4.87); Red Cell Distribution Width 18 % (10-15); White Blood Count 1.8 10^3/uL (3.5-10.8)
[2019-05-26 11:31] LABS: ABS Lymphocytes 0.3 10^3/ul (1.0-4.8); ABS Monocytes 0.4 10^3/ul (0-0.8); ABS Neutrophils 1.1 10^3/ul (1.5-7.7); Eosinophil % 0.8 %; Nucleated Red Blood Cells % 0.5
[2019-05-26] MEDS: LORazepam TAB(*) 0.5 MG PO PRN (12:09)
[2019-05-26] MEDS: Ondansetron INJ* 2 MG/ML VIAL IV PRN (12:10)
[2019-05-26 12:55] VITALS: BP 92/68
[2019-05-26] MEDS ORDERED: Vancomycin Trough Check NOTE FOLLOW UP ONE (13:30)
--- NOTE | 2019-05-26 13:54 | CONSULT ---
Consult Consult: Psychiatry attempted to evaluate Ms. Callaway after reports that she purposefully dissolved 3 capsules of Benadryl in water and injected them into her PICC line. Reportedly told primary team she wanted to sleep. Upon exam she is minimally responsive, will open her eyes and briefly look at observer and then lay head back down and close her eyes again. Patient is on 1:1 observations to prevent further inappropriate self-administration of meds. Psychiatry will return to follow up with patient tomorrow.
--- NOTE | 2019-05-27 00:08 | DS ---
CC: Dr. Dawkins * DISCHARGE SUMMARY/READMISSION HISTORY AND PHYSICAL: DATE OF ADMISSION: To [facility], 05/13/19. DATE OF DISCHARGE: From [facility], 05/26/19. DATE OF READMISSION: To inpatient service, 05/26/19. PROVIDER: Tejal Fernandez NP PRIMARY CARE PROVIDER: Dr. Zac Adrian. ATTENDING PHYSICIAN WHILE IN THE HOSPITAL: Dr. Nicolas Barnes * (dictated by Tejal Fernandez NP). PRIMARY DIAGNOSES: 1. Injection of crushed pills into PICC line. 2. Gastric ulceration at anastomosis requiring TPN. 3. Anemia. 4. Pancytopenia. SECONDARY DIAGNOSES: 1. Bipolar/posttraumatic stress disorder. 2. Maulik thyroiditis. 3. History of gastrointestinal bleed. 4. Provoked right lower extremity DVT in August 2018. 5. Recurrent small bowel obstructions. STUDIES COMPLETED DURING THIS ADMISSION: She had a chest x-ray on 05/25/19, radiologist's impression: No active cardiopulmonary disease. She had a CT of the abdomen and pelvis, which showed trace pleural effusion, status post gastric bypass surgery, cholecystectomy, and hysterectomy. There is fluid in the dependent portion of the pelvis likely representing free intraperitoneal fluid, although not well defined. Recommended pelvic ultrasound to exclude abscess or focal collection anasarca. She had a transvaginal ultrasound , radiologist's impression: 1. Small to moderate amount of endovaginal fluid, which corresponds to the fluid seen on CT of the abdomen and pelvis. 2. A 2.7 cm x 1.8 cm x 2.4 cm left ovarian follicular cyst, for which followup is not necessary. HISTORY OF PRESENT ILLNESS AND HOSPITAL COURSE: Ms. Callaway is a 43-year-old female with a past medical history significant for bipolar/PTSD, Maulik thyroiditis, history of GI bleed, history of provoked DVT in August of 2018, recurrent small bowel obstructions, history of gastric bypass, who was currently on swing status for continuation of TPN therapy as the patient was found in her admission to have severe ulceration at anastomosis requiring 6 to 8 weeks of TPN and bowel rest. During this hospitalization, the patient was progressing well up until the morning of 05/25/19, where she developed a fever of 102.9. At that time, she did have a sepsis workup due to her fever of unclear origin. She did have a urine, which was within normal limits. Chest x- ray, CT of the abdomen pelvis, which did not show any source of infection. The patient continued to have persistent fevers and was started on vancomycin and ceftriaxone due to the patient's febrile illness of unclear origin. It was recommended that she be converted to inpatient status. On 05/26/19, staff informed the provider service that they had withdrawn bright pink fluid from her PICC line from which she was receiving TPN. The patient was questioned and gave multiple inconsistent stories ranging from it being dissolved chalk to Pepto-Bismol to crystallite to Carafate. The patient also gave the story of the syringes that were found in her room were from her and her granddaughter having a squirt gun war. Further evaluation into the inconsistencies in her story, the patient did report that she crushed up Benadryl tablets and dissolved them in water injecting them into the PICC line. She does report she injected 3 syringe-fulls of dissolved Benadryl into her PICC line and flushed this with tap water. During the night, the PICC line was removed. Prior to the story, the tip has been sent for culture. The patient also had a urine drug screen. Her urine drug screen did not show any Ativan, did not positive for benzo. The patient was questioned about taking her Ativan. Does report she consistently takes her Ativan, but again this is not appearing to be the case as Ativan or benzodiazepines are not positive in her urine drug screen. Due to the patient's infection and continued fevers, the patient was converted to inpatient status from [facility]. PAST MEDICAL HISTORY: Significant for: 1. Bipolar/PTSD. 2. Maulik thyroiditis. 3. GI bleed. 4. Provoked DVT in August of 2018 to right lower leg. 5. Recurrent small bowel obstructions. PAST SURGICAL HISTORY: 1. SMA repair. 2. Gastric bypass. 3. Appendectomy. 4. Hysterectomy. 5. Tubal ligation. 6. Cholecystectomy. 7. Hernia repair. HOME MEDICATIONS: Include: 1. Levothyroxine 25 mcg p.o. daily. 2. Gabapentin 300 mg p.o. t.i.d. 3. Seroquel 100 mg p.o. b.i.d. 4. Bupropion 300 mg p.o. daily. 5. Hydroxyzine q.8 hours p.r.n. 6. Carafate 1 g p.o. 4 times a day. 7. Omeprazole 40 mg p.o. b.i.d. Continued hospital medications: 1. Cefepime 1 g q.12 hours. 2. Vancomycin as per pharmacy protocol. 3. Midodrine 5 mg p.o. b.i.d. 4. PPN at 77 cc per hour. 5. Oxycodone 5 mg p.o. q.6 hours as needed for severe pain. 6. Zofran 4 mg p.o. q.6 hours as needed for nausea. REVIEW OF SYSTEMS: The patient complains of back pain and headache. The patient is able to move her head side to side, touch her chin to her chest. She has no nuchal rigidity. She denies any chest pain or shortness of breath. She denies any cough or congestion. She denies vomiting or diarrhea. She does complain of abdominal pain. She denies any gross hematuria or dysuria. She does report dark stools. She denies any dysphagia. She does complain of generalized muscle aches. She denies any open lesions, rashes, sores. PHYSICAL EXAM: General: At this time, Ms. Callaway is a 43-year-old female. She is alert and oriented, resting in her bed. The patient does have minimal eye contact. HEENT: Head is atraumatic, normocephalic. Eyes: EOMs are intact. Sclerae are pale. Mucous membranes are moist. Lungs are clear to auscultation bilaterally. No wheezes, rales, or rhonchi. Cardiac: S1, S2. Regular rate and rhythm. No murmurs, rubs, or gallops. Abdomen is soft. Tenderness on palpation. Bowel sounds are active x4. Extremities: She is able to move all 4 extremities. There is no clubbing or cyanosis. She has no calf tenderness. ASSESSMENT AND PLAN: Ms. Callaway is a 43-year-old female who is currently on swing status when she developed a fever and her care has been transferred to inpatient status due to fever of unknown origin and the improper use of her PICC line, which has been removed. 1. Fever of unknown origin. The patient did have CT of the abdomen and pelvis that showed free fluid in the pelvis. Pelvic ultrasound did not show any abscess consistent with free fluid seen on the CT. She had a chest x-ray, which was within normal limits. She has no cough or congestion. Her urinalysis was within normal limits. The patient did have a PICC line. She did have improper use of the PICC line. The PICC line was removed. The tip was cut and sent for culture. Cultures thus far, there is no growth in the blood line. There was no growth in the venous blood culture and urine culture had no growth. She is currently being treated with cefepime and vancomycin for unknown source of infection. Within the differential, we have ruled out abdomen as the source of infection. PICC line could be a source of infection as the patient has been on TPN for several weeks, which increases the risk of PICC line associated infection. This could also be associated with a viral infection. 2. Anemia. The patient is pancytopenic with a platelet count of 45. Her H and H of 7.2 and 22. She is leukopenic with a white count of 1.8. Neutrophils are 1.1. Given her pancytopenia, I have stopped her Lovenox. I will repeat lab work in the morning. If the patient remains pancytopenic, I would recommend a consultation to Hematology. I will repeat her CBC. I will add vitamin B12, folate, retic count. After these lab works are obtained, I would recommend starting her on thiamine, B12, folate, and a multivitamin. We will continue her on PPN as previously prescribed. 3. Ulceration at the anastomosis of her jejunostomy. We will continue her on omeprazole 40 mg p.o. b.i.d. crushed and placed in apple sauce. She will continue PPN. We will need to follow up with Dr. Dawkins tomorrow as Gastroenterology was unavailable for consultation today in regards of continuing her PPN versus starting her on clear liquids. We should work also with nutritional service to make sure the patient receives the appropriate amount of nutrition. I will leave her on fingersticks q.6 hours. 4. Bipolar/posttraumatic stress disorder. The patient should continue on Seroquel and Wellbutrin as previously prescribed. I have discontinued her Ativan as the patient did have a urine toxicology that was negative for benzodiazepine leading me to believe that she may not be consuming her Ativan orally. 5. Chronic back and neck pain. The patient can have oxycodone 5 mg p.o. q.6 hours as needed for severe pain. 6. Inappropriate use of her PICC line. After several attempts, the patient did admit that she crushed a Benadryl and dissolved it in tap water injecting 3 full syringes of Benadryl and tap water and flushing with plain tap water in her PICC line. The PICC line was removed overnight and the tip was sent for culture. A small amount of pink fluid was removed from her PICC line prior to discontinuation of the PICC line. I have asked Dr. Gauthier from Psychiatry to come and see and evaluate the patient due to her behavior. The patient did have multiple stories before admitting to what was in her PICC line. 7. DVT prophylaxis. I will place her on SCDs as chemical DVT prophylaxis at this time is contraindicated as the patient does have a platelet count of 45. 8. FEN. She can have clear liquid diet with fluid restrictions no more than 1000 cc per day. 9. Code status. She is a full code. TIME SPENT: Time spent on this admission and discharge was 60 minutes, greater than half that time was spent at the bedside reviewing events leading overnight to her change in condition and admission to the hospital. I have discussed this with my attending, Dr. Nicolas Barnes; he is in agreement with my plan. TEJAL FERNANDEZ, RITU [id number]/[facility] #: [id number] ELISA
== END 2019-05-26 12:34 | disposition swing bed (61) | DRG 380 ==
LOC: UNDOADMIN 13:56 → MED 13:56
PROVIDERS: ADMIT Internal Medicine; ATTEND Internal Medicine
DX: K28.9 Gastrojejunal ulcer, unspecified as acute or chronic, without hemorrhage or perforation (principal); E43 Unspecified severe protein-calorie malnutrition; K56.699 Other intestinal obstruction unspecified as to partial versus complete obstruction; D61.818 Other pancytopenia; F31.9 Bipolar disorder, unspecified; F17.200 Nicotine dependence, unspecified, uncomplicated; E03.9 Hypothyroidism, unspecified; I95.9 Hypotension, unspecified; F43.10 Post-traumatic stress disorder, unspecified; G89.29 Other chronic pain; M54.9 Dorsalgia, unspecified; M54.2 Cervicalgia; E83.42 Hypomagnesemia; E06.3 Autoimmune thyroiditis; R50.9 Fever, unspecified; R00.0 Tachycardia, unspecified; Z86.718 Personal history of other venous thrombosis and embolism; Z68.21 Body mass index [BMI] 21.0-21.9, adult; Z98.84 Bariatric surgery status; Z90.49 Acquired absence of other specified parts of digestive tract; Z88.6 Allergy status to analgesic agent; Z88.1 Allergy status to other antibiotic agents; Z88.8 Allergy status to other drugs, medicaments and biological substances; Z79.890 Hormone replacement therapy; Z90.710 Acquired absence of both cervix and uterus; Z98.51 Tubal ligation status
CPT/HCPCS: 36415; 71045; 74176; 76830; 76856; 80048; 80053; 80061; 80307; 81003; 82465; 83605; 83735; 84100; 84134; 84478; 85025; 85060; 87040; 87071; 87086; A9270-GY; J0692; J1650; J2270; J2405; J2543; J2997; J3010; J3370; J3475; J3480

== ENCOUNTER 2019-05-26 13:40 | Inpatient (IN) | payer MEDICARE ==
[2019-05-26] MEDS ORDERED: hydrOXYzine HCL TAB* 50 MG PO PRN (13:59)
[2019-05-26] MEDS ORDERED: diPHENhydraMINE PO* 25 MG PO PRN (14:12)
[2019-05-26] MEDS ORDERED: Vancomycin per Pharmacy* NOTE FOLLOW UP SCH (15:00)
[2019-05-26] MEDS: Gabapentin CAP(*) 300 MG PO SCH ×2 (15:34→20:30)
[2019-05-26] MEDS: Acetaminophen TAB* 325 MG PO PRN (15:35)
[2019-05-26] MEDS: TPN* 24 HR with D10W 1000 ML BAG* 1,000 ML, Amino Acid Infusion 10%* 850 ML, Sterile Wa... IV SCH ×12 (16:42)
[2019-05-26] MEDS: Sucralfate SUSP 1 GM/10 ml 10 ML UDC PO SCH ×2 (16:42→20:19)
[2019-05-26] MEDS ORDERED: Vancomycin(*) 1,250 MG IV x ONCE IVPB ONE ×2 (17:00)
[2019-05-26] MEDS ORDERED: NS 0.9% 1000 ML** 1,000 ML IV SCH (19:30)
[2019-05-26] MEDS: oxyCODONE TAB* 5 MG TAB PO PRN (20:30)
[2019-05-26] MEDS: Magnesium Oxide TAB* 400 MG PO SCH (20:30)
[2019-05-26] MEDS: CMCS: Omeprazole CAP (NF) 20 MG CAP.DR PO SCH (20:31)
[2019-05-26] MEDS: QUEtiapine TAB* 100 MG PO SCH (20:31)
[2019-05-27] MEDS ORDERED: Vancomycin(*) 750 MG in NS 0.9% 250 ML* 250 ML IVPB SCH ×2
[2019-05-27] MEDS: Cefepime 1 GM in Dextrose(*) 1 GM/50 ML BAG IV SCH ×2 (02:01→15:11)
[2019-05-27] MEDS: oxyCODONE TAB* 5 MG TAB PO PRN ×4 (03:13→22:30)
[2019-05-27 05:16] LABS: INR 0.97 (0.82-1.09)
[2019-05-27 05:23] LABS: Immature Retic Fraction 0.56; RBC Retic Count 2.03 10^6/uL (3.70-4.87); Red Blood Count 2.03 10^6 /uL (3.70-4.87)
[2019-05-27 05:27] LABS: ABS Eosinophils 0.1 10^3/ul (0-0.6); ABS Lymphocytes 0.4 10^3/ul (1.0-4.8); ABS Monocytes 0.3 10^3/ul (0-0.8); ABS Neutrophils 1.2 10^3/ul (1.5-7.7); Corrected Retic Count 1.3 % (0.5-1.5); Eosinophil % 3.7 %; Hematocrit 21 % (35-47); Hematocrit for Retic CNT 21 % (35-47); Hemoglobin 6.8 g/dL (12.0-16.0); Lymphocyte % 19.6 %; Mean Corpuscular HGB Conc 32 g/dL (31-36); Mean Corpuscular Hemoglobin 33 pg (27-31); Mean Corpuscular Volume 104 fL (80-97); Mean Platelet Volume 10.2 fL (7.4-10.4); Nucleated Red Blood Cells % 0.3; Platelet Count 46 10^3/uL (150-450); Red Cell Distribution Width 19 % (10-15)
[2019-05-27 05:38] LABS: Blood Urea Nitrogen 12 mg/dL (6-24); CO2 Carbon Dioxide 15 mmol/L (22-32); Calcium 7.9 mg/dL (8.6-10.3); EGFR African American 132.7 (>60); EGFR Non-African American 109.6 (>60); Glucose 92 mg/dL (70-100); Potassium 3.9 mmol/L (3.5-5.0); Sodium 137 mmol/L (135-145)
[2019-05-27 05:39] LABS: Anion Gap 9 mmol/L (2-11); Chloride 113 mmol/L (101-111)
[2019-05-27] MEDS: Levothyroxine TAB* 25 MCG TAB PO SCH (06:08)
[2019-05-27] MEDS: Vancomycin(*) 750 MG in NS 0.9% 250 ML* 250 ML IVPB SCH ×3 (06:11→22:25)
[2019-05-27 06:24] LABS: Folate > 20.00 ng/mL (>3.99)
[2019-05-27] MEDS: Sucralfate SUSP 1 GM/10 ml 10 ML UDC PO SCH ×4 (08:04→19:57)
[2019-05-27] MEDS: QUEtiapine TAB* 100 MG PO SCH ×2 (08:05→21:47)
[2019-05-27] MEDS: CMCS: Omeprazole CAP (NF) 20 MG CAP.DR PO SCH ×2 (08:05→21:48)
[2019-05-27] MEDS: Acetaminophen TAB* 325 MG PO PRN ×2 (08:06→18:14)
[2019-05-27] MEDS: BuPROPion XL* 150 MG TAB.XL PO SCH (08:06)
[2019-05-27] MEDS: Gabapentin CAP(*) 300 MG PO SCH ×3 (08:06→21:47)
[2019-05-27] MEDS: Magnesium Oxide TAB* 400 MG PO SCH ×2 (08:06→21:47)
[2019-05-27] MEDS ORDERED: Cyanocobalamin TAB* 500 MCG PO SCH (10:00)
[2019-05-27] MEDS: Cyanocobalamin INJ * 1,000 MCG/ML VIAL 1 ML VIAL IM SCH (13:38)
--- NOTE | 2019-05-27 15:42 | PN ---
Subjective Date of Service: 05/27/19 Interval History: Patient seen today, complains of SOB. complains of neck pain started 4 days ago posterior neck which is new to her. She reports she still have the pain same in intensity as on Saturday. BC x 48hrs so far negative. Picc line ordered for tomorrow. On PPN awaiting picc line placement Past Medical History: Unchanged from Admission Objective Active Medications: Acetaminophen (Tylenol Tab*) 650 mg PO Q4H PRN PRN Reason: MILD PAIN or TEMP > 100.4 Last Admin: 05/27/19 08:06 Dose: 650 mg Bupropion HCl (Wellbutrin Xl *) 300 mg PO DAILY [facility] Last Admin: 05/27/19 08:06 Dose: 300 mg Cyanocobalamin (Vitamin B12 Inj *) 1,000 mcg IM DAILY [facility] Stop: 06/01/19 11:59 Last Admin: 05/27/19 13:38 Dose: 1,000 mcg Diphenhydramine HCl (Benadryl Po*) 25 mg PO BEDTIME PRN PRN Reason: INSOMNIA Gabapentin (Neurontin Cap(*)) 300 mg PO TID [facility] Last Admin: 05/27/19 15:17 Dose: 300 mg Cefepime HCl (Maxipime 1 Gm In Dextrose Duplex (*)) 1 gm in 50 mls @ 100 mls/ hr IV Q12H [facility] Last Admin: 05/27/19 15:11 Dose: 100 mls/hr Dextrose 1,000 ml/ Amino Acids 850 ml/ Sterile Water 150 ml/Fat Emulsion Intravenous 500 ml/ Sodium Chloride 100 meq/Potassium Chloride 50 meq/Potassium Phosphate 5 mmole/Calcium Gluconate 15 meq/Magnesium Sulfate 20 meq/ Multivitamins 10 ml/ Trace Metals 1 ml/ Nutrition ( Parenteral) 2,599.8508 mls @ 108.386 mls/hr IV 1700 [facility] Last Admin: 05/26/19 16:42 Dose: 108.386 mls/hr Vancomycin HCl 750 mg/ Sodium (Chloride) 250 mls @ 166.667 mls/hr IVPB 0600, 1400,2200 [facility] Last Admin: 05/27/19 06:11 Dose: 166.667 mls/hr Levothyroxine Sodium (Synthroid Tab*) 25 mcg PO DAILY@0600 [facility] Last Admin: 11/20/19 06:08 Dose: 25 mcg Magnesium Oxide (Magox 400 Tab*) 400 mg PO BID [facility] Last Admin: 05/27/19 08:06 Dose: 400 mg Midodrine (Midodrine) 5 mg PO BID [facility]; Protocol Last Admin: 05/27/19 08:06 Dose: 5 mg Omeprazole (Prilosec Cap* (Nf)) 40 mg PO BID [facility] Last Admin: 05/27/19 08:05 Dose: 40 mg Ondansetron HCl (Zofran Inj*) 4 mg IV Q8H PRN PRN Reason: NAUSEA Oxycodone HCl (Roxycodone Tab*) 5 mg PO Q6H PRN PRN Reason: PAIN - SEVERE Last Admin: 05/27/19 09:24 Dose: 5 mg Pharmacy Consult (Vancomycin Per Pharmacy*) 1 note FOLLOW UP .VANC PER PHARMACY [facility]; Protocol Pharmacy Profile Note (Vancomycin Trough Check) 1 note FOLLOW UP 1330 ONE Stop: 05/28/19 13:31 Quetiapine Fumarate (Seroquel Tab*) 100 mg PO BID [facility] Last Admin: 05/27/19 08:05 Dose: 100 mg Sucralfate (Sucralfate Susp) 1 gm PO ACHS [facility] Last Admin: 05/27/19 13:39 Dose: 1 gm Vital Signs - 8 hr 05/27/19 05/27/19 05/27/19 08:00 08:06 09:14 Temperature 97.1 F Pulse Rate 91 Respiratory 18 18 18 Rate Blood Pressure 96/63 (mmHg) O2 Sat by Pulse 100 Oximetry 05/27/19 05/27/19 05/27/19 09:24 10:55 11:15 Temperature 98.2 F Pulse Rate 80 Respiratory 18 18 18 Rate Blood Pressure 91/64 (mmHg) O2 Sat by Pulse 100 Oximetry 05/27/19 05/27/19 12:22 15:17 Temperature Pulse Rate Respiratory 18 16 Rate Blood Pressure (mmHg) O2 Sat by Pulse Oximetry Oxygen Devices in Use Now: Simple Face Mask Appearance: awake, pale. no distress. Eyes: - - pale sclera. Ears/Nose/Mouth/Throat: Mucous Membranes Moist Neck: NL Appearance and Movements; NL JVP, Trachea Midline Respiratory: Symmetrical Chest Expansion and Respiratory Effort, Clear to Auscultation Cardiovascular: NL Sounds; No Murmurs; No JVD, - - +1 edema Abdominal: NL Sounds; No Tenderness; No Distention Extremities: - - + 1 edema Skin: No Rash or Ulcers Neurological: Alert and Oriented x 3, NL Muscle Strength and Tone Result Diagrams: 05/27/19 05:00 05/27/19 04:59 Assess/Plan/Problems-Billing Assessment: 43 y/o female readmitted to medical floor for fever, rule out sepsis with prolonged hospitalization related to malnutrition. She has knows PMH of bipolar, PTSD, DVT, recurrent SBO. Her initial presentation to the ER dates back to 04/15/19 for abd pain, N/V and inability to tolerate PO intake found to have ulcer at stomach anastomosis, possible stricture at anastomosis, severe protein-calorie malnutrition was on TPN for total course of 8 weeks followed by EGD at a tertiary care center but on 05/25/19 staff noted pink liquid in her picc line and turned out the patient self injected benadryl into her picc line followed by fever, hence transferred to acute bed status for fever rule out sepsis. - Patient Problems (1) Fever Current Visit: No Status: Acute Code(s): R50.9 - FEVER, UNSPECIFIED SNOMED Code(s): 642734521 Comment: - Given her low WBC's , fever 102.9 on 05/25/19, tacycardia - she was place in acute bed status pending her final cultures - Today she tells me she had neck pain and stiffness on Saturday and she still have it. However her fever and mentations improving. I will see ID input if we should continue treatment for empirically meningitis. On the other hand it was documented in chart that the patient did not have no nuchal rigidity and she was able to move head side to side. - started vancomycin day # 2 and cefepime day # 2. <55 y/o would not require listeria coverage - patient did have a PICC line - blood culture was taken from the PICC is neg at 48 hrs - (2) Anemia Current Visit: No Status: Acute Code(s): D64.9 - ANEMIA, UNSPECIFIED SNOMED Code(s): 562792561 Comment: - Mixed etiology secondary to AOCD, and secondary to malnutrition - Continue omeprazole - Hgb is 6.8 today 05/27/19. Will give one unit. - Added B12 low normal will start B12 injections - Will consult hematology for further recommendations (3) Bipolar disorder Current Visit: No Status: Acute Code(s): F31.9 - BIPOLAR DISORDER, UNSPECIFIED SNOMED Code(s): 93691141 Comment: - Continue bupropion 300 mg daily; Seroquel 100 mg bid, hydroxyzine prn - given her recent self injection of benadryl into her picc line we did call psyh to evaluate the patient given the risk of self harm. Remains on 1:1 (4) Chronic malnutrition Current Visit: No Status: Acute Code(s): E46 - UNSPECIFIED PROTEIN-CALORIE MALNUTRITION SNOMED Code(s): 1912230 Comment: - Chronic, severe - Crruently on clear liquid due to severity of ulceration and GI recommendations - Continue PPN; once Picc line in place will resume TPN - Appreciate input from Dietary and Pharmacy (5) Gastrojejunal ulcer Current Visit: No Status: Acute Code(s): K28.9 - GASTROJEJUNAL ULCER, UNSP ACUTE OR CHR, W/O HEMOR OR PERF SNOMED Code(s): 16523849 Comment: - Multiple recent hospitalizations - EGD on 04/29/19 showing severe ulceration at anastomosis; unable to pass EGD scope to evaluate - Appreciate GI consult; recommends clear liquids, PPI, no NSAIDS - Appreciate Surgery consult; no surgery at this time, agrees with NPO and TPN - Recommended f/u at [facility] with [facility] as outpatient for repeat EGD in 6-8 weeks ( from 04/29/19) - Continue PPN/TPN until symptoms nakul and is able to tolerate adequate oral intake. - Outpatient TPN not an option per Case Management as the patient does not have a home to go to and limited motivation for independent medical care; home TPN not an option per Medicare - Continue Zofran, omeprazole, Carafate (6) History of DVT (deep vein thrombosis) Current Visit: No Status: Acute Code(s): Z86.718 - PERSONAL HISTORY OF OTHER VENOUS THROMBOSIS AND EMBOLISM SNOMED Code(s): 858061979 Comment: - History of DVT August 2018 - No residual clot (7) Hypomagnesemia Current Visit: No Status: Acute Code(s): E83.42 - HYPOMAGNESEMIA SNOMED Code(s): 895221541 Comment: - Repleting with her PPN/TPN - Continue mag oxide BID (8) Hypotension Current Visit: No Status: Acute Comment: - Likely due to malnutrition, anemia - Cortisol and TFT normal - Continue midodrine 5 mg bid (9) Hypothyroidism Current Visit: No Status: Acute Code(s): E03.9 - HYPOTHYROIDISM, UNSPECIFIED SNOMED Code(s): 65485622 Comment: - Continue levothyroxine 25 mcg daily (10) Leukopenia Current Visit: No Status: Acute Code(s): D72.819 - DECREASED WHITE BLOOD CELL COUNT, UNSPECIFIED SNOMED Code(s): 96100548 Comment: - Now pancytopenia - Chronic, likely due to malnutrition - B12 low normal I did start her on B12 shots - I did request Heme/Onc consult for further recommendations (11) Thrombocytopenia Current Visit: No Status: Acute Code(s): D69.6 - THROMBOCYTOPENIA, UNSPECIFIED SNOMED Code(s): 132743507 Comment: - Now pancytopenia - Chronic, likely due to malnutrition - B12 low normal I did start her on B12 shots - I did request Heme/Onc consult for further recommendations (12) DVT prophylaxis Current Visit: No Status: Acute Code(s): Z29.9 - ENCOUNTER FOR PROPHYLACTIC MEASURES, UNSPECIFIED SNOMED Code(s): 407501191 Comment: - SCD due to thrombocytopenia
[2019-05-27 15:53] LABS: Iron 63 ug/dL (50-212)
--- NOTE | 2019-05-27 16:28 | CONSULT ---
Consultation - Reason for Consultation Reason for Consultation: Pancytopenia Ordering Provider: Nicolas Barnes Chief Complaint: Fever, severe protein-caloric malnutrition History of Present Illness: Complicated 43 yo female who was re-admitted to [facility]. status yesterday due to sudden onset fever and concern for self harm after nursing found pink liquid in PICC line (pt. had self injected crushed Benadryl). Yesterday she was [place]- cultured and started on Vancomycin and Cefepime. Cultures have been negative and she has not had any further fevers. The hospitalists are managing her case and note that she did complain of neck pain on re-admission. Her main complaint is pain. Hem/Onc is being consulted for progressive cytopenias. As mentioned Mrs. Callaway has a complex medical history, especially most recently with abd. pain leading to work-up revealing an ulcer at the stomach anastomosis with stricture. She has been NPO on TPN for several weeks with plan for EGD with fluoroscopy in [place] in early June. She tells me that a lot of this started at the beginning of the summer when she started to have increased abd. pain and lost nearly 50 lbs over several months. "[place] kept saying it was constipation." She was admitted to [facility] and then passed out and she believes she had low counts at this time, "I got an infusion." She notes she has had anemia since her gastric bypass (2001). She has had significant GI work-up with both EGD (though most recently unable to pass) and colonoscopy (at [place] several months ago). To note she has not been on any anticoagulants in the last month, though she was on eliquis for 6 mo. due to provoked DVT (I do not have these records). She has been on seroquel for "almost a year." In terms of her current counts, she has had mild leukopenia and neutropenia for the last 2 months. Her platelets have been in the 140s with a drop to 82 on 05/25/19 and now in the 40s. Interestingly she has high production with elevated retic count. Allergies/Medications Allergies/Adverse Reactions: Allergies Allergy/AdvReac Type Severity Reaction Status Date / Time erythromycin base Allergy Swelling Verified 04/27/19 14:36 metoclopramide [From Reglan] Allergy Itching Verified 04/27/19 14:36 nitrofurantoin Allergy Swelling Verified 04/27/19 14:36 [From Macrobid] NSAIDS (Non-Steroidal Allergy Bleeding Verified 04/27/19 14:36 Anti-Inflamma terbutaline Allergy Unknown Verified 04/27/19 14:36 Reaction Details History - Past Medical History Hx Cancer: No Surgical History: Yes Surgery Procedure, Year, and Place: gastric bypass 2001, hystercectomy 2006, appendectomy, cholecystectomy, hernia repair Hx Endocrine Problem: Yes - sundeep's thyroiditis Other History: Provoked DVT 08/2018 s/p 6 mo. eliquis with neg. doppler . first period age 18 - Family History Hx Family Cancer: Yes - sister colon cancer 2016 - "but she didn't have the gene " Hx Family Cardiac Disorders: Yes - mother Hx Family Diabetes: Yes - father Other Family History: no family history of clots or excessive bleeding - Social History Hx Tobacco Use: Yes - has not smoked in several months Hx Substance Use: No Number of Children: 3 children, vaginal births Other Social History: currently homeless Review of Systems - Review of Systems Constitutional Symptoms: Positive: Weight Loss, Fatigue, Fever, Night Sweats - night sweats and hot flashes for years, "I thought it was menopause." Dermatology: Positive: Normal HEENT: Positive: Dental Problems Eyes: Positive: Normal Pulmonary: Positive: Shortness of Breath Cardiology: Positive: Normal Gastroenterology: Positive: Abdominal Pain Genital - Urinary: Positive: Normal, Other - "it seemed concentrated a couple days ago." Genitourinay - Female: Menopause - surgical Musculoskeletal: Positive: Low Back Pain Endocrinology: Positive: Thyroid Problems Hematologic/Lymphatic: Positive: Anemia Neurology: Positive: Normal Psychiatry: Positive: Depression, Anxiety Physical Exam - Physical Exam Physical Examination: A&Ox3, involved in plan of care and oriented to situation No enlarged nodes noted to cervical, supraclavicular, axillary, or inguinal areas HRR, S1S2, distant heart sounds LS clear with poor resp. effort, no cough noted +BS, diffusely tender, no hepatomegally noted Palor with pink cheeks Results - Lab Results Lab Results: 05/26/19 05/26/19 05/26/19 16:24 17:27 23:49 WBC RBC RBC (Retic) Hgb Hct HCT (Retic) MCV MCH MCHC RDW Plt Count MPV Neut % (Auto) Lymph % (Auto) [place] % (Auto) Eos % (Auto) Baso % (Auto) Absolute Neuts (auto) Absolute Lymphs (auto) Absolute Monos (auto) Absolute Eos (auto) Absolute Basos (auto) Absolute Nucleated RBC Nucleated RBC % Retic Count, Calc Corrected Retic Count Retic Shift Factor Retic Production Index Immature Retic Fraction Mean Retic Volume INR (Anticoag Therapy) Sodium Potassium Chloride Carbon Dioxide Anion Gap BUN Creatinine Est GFR ( Amer) Est GFR (Non-Af Amer) BUN/Creatinine Ratio Glucose POC Glucose (mg/dL) 137 H 130 H Calcium Iron Ferritin Vitamin B12 Folate Random Vancomycin 5.8 Blood Type Antibody Screen Crossmatch 05/27/19 05/27/19 05/27/19 04:59 04:59 04:59 WBC RBC RBC (Retic) Hgb Hct HCT (Retic) MCV MCH MCHC RDW Plt Count MPV Neut % (Auto) Lymph % (Auto) [place] % (Auto) Eos % (Auto) Baso % (Auto) Absolute Neuts (auto) Absolute Lymphs (auto) Absolute Monos (auto) Absolute Eos (auto) Absolute Basos (auto) Absolute Nucleated RBC Nucleated RBC % Retic Count, Calc Corrected Retic Count Retic Shift Factor Retic Production Index Immature Retic Fraction Mean Retic Volume INR (Anticoag Therapy) 0.97 Sodium 137 Potassium 3.9 Chloride 113 H Carbon Dioxide 15 L Anion Gap 9 BUN 12 Creatinine 0.60 Est GFR ( Amer) 132.7 Est GFR (Non-Af Amer) 109.6 BUN/Creatinine Ratio 20.0 Glucose 92 POC Glucose (mg/dL) Calcium 7.9 L Iron 63 Ferritin 129.0 Vitamin B12 278 Folate > 20.00 Random Vancomycin Blood Type A Negative Antibody Screen Crossmatch 05/27/19 05/27/19 05/27/19 05:00 06:21 10:02 WBC 2.0 L RBC 2.03 L RBC (Retic) 2.03 L Hgb 6.8 L Hct 21 L HCT (Retic) 21 L MCV 104 H MCH 33 H MCHC 32 RDW 19 H Plt Count 46 L MPV 10.2 Neut % (Auto) 62.3 Lymph % (Auto) 19.6 [place] % (Auto) 14.0 Eos % (Auto) 3.7 Baso % (Auto) 0.4 Absolute Neuts (auto) 1.2 L Absolute Lymphs (auto) 0.4 L Absolute Monos (auto) 0.3 Absolute Eos (auto) 0.1 Absolute Basos (auto) 0.0 Absolute Nucleated RBC 0.0 Nucleated RBC % 0.3 Retic Count, Calc 2.7 H Corrected Retic Count 1.3 Retic Shift Factor 2.0 Retic Production Index 0.70 Immature Retic Fraction 0.56 Mean Retic Volume 115.1 INR (Anticoag Therapy) Sodium Potassium Chloride Carbon Dioxide Anion Gap BUN Creatinine Est GFR ( Amer) Est GFR (Non-Af Amer) BUN/Creatinine Ratio Glucose POC Glucose (mg/dL) 128 H Calcium Iron Ferritin Vitamin B12 Folate Random Vancomycin Blood Type A Negative Antibody Screen Negative Crossmatch See Detail Assessment and Plan Impression: 43 yo female with multiple medical problems including complex psychosocial component, recently with severe malnutrition and prolonged NPO status on TPN due to severe GI ulcerations now admitted with fever of unknown origin and pancytopenia. Suspect pancytopenia directly related to malnutrition with consumption, as low grade leukopenia and anemia over several months. Recommend initiating B12 inj. , however her thrombocytopenia seems more acute and it is likely that this is related to severe infection and the use of Vancomycin. Potential for psychiatric medications to cause decreased counts, though this seems more acute. Plan: - B12 inj. as initiated by hospitalist, send MMA - check ELISABET & RF for underlying inflammatory process - check Hepatitis panel and HIV - low suspicion for underlying bone marrow dysfunction and cancer at this time, however if no improvement over next week we will pursue bone marrow biopsy and further testing Case discussed with attending
[2019-05-27] MEDS: TPN* 24 HR with D10W 1000 ML BAG* 1,000 ML, Amino Acid Infusion 10%* 850 ML, Sterile Wa... IV SCH ×12 (16:29)
[2019-05-27] MEDS: Ondansetron INJ* 2 MG/ML VIAL IV PRN (18:15)
[2019-05-27 18:16] LABS: % Iron Saturation 20 % (15-55); Total Iron Binding Capacity 314 mcg/dL (250-450); Transferrin 224 mg/dL (203-362)
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
[2019-05-28] MEDS: Cefepime 1 GM in Dextrose(*) 1 GM/50 ML BAG IV SCH ×2 (00:25→12:04)
[2019-05-28] MEDS: oxyCODONE TAB* 5 MG TAB PO PRN ×3 (04:37→21:40)
[2019-05-28] MEDS: Vancomycin(*) 750 MG in NS 0.9% 250 ML* 250 ML IVPB SCH ×3 (05:56→21:48)
[2019-05-28] MEDS: Levothyroxine TAB* 25 MCG TAB PO SCH (06:01)
[2019-05-28] MEDS: Ondansetron INJ* 2 MG/ML VIAL IV PRN ×2 (06:01→15:04)
[2019-05-28 06:46] LABS: Albumin 2.6 g/dL (3.2-5.2); Albumin/Globulin Ratio 0.9 (1-3); BUN/Creatinine Ratio 16.9 (8-20); EGFR African American 120.9 (>60); Globulin 2.9 g/dL (2-4); Magnesium 1.6 mg/dL (1.9-2.7); Phosphorus 2.9 mg/dL (2.5-5.0); Potassium 4.2 mmol/L (3.5-5.0); Total Bilirubin 0.5 mg/dL (0.2-1.0); Total Protein 5.5 g/dL (6.4-8.9)
[2019-05-28 07:13] LABS: Hepatitis B Surface Antigen Nonreactive (Nonreactive)
[2019-05-28 07:18] LABS: HIV 4th Generation Nonreactive (Nonreactive)
[2019-05-28 07:30] LABS: Hepatitis C Antibody Negative (Negative)
[2019-05-28 09:27] LABS: Hematocrit 26 % (35-47); Hemoglobin 8.5 g/dL (12.0-16.0); Mean Corpuscular HGB Conc 33 g/dL (31-36); Mean Corpuscular Hemoglobin 33 pg (27-31); Mean Corpuscular Volume 100 fL (80-97); Mean Platelet Volume 11.9 fL (7.4-10.4); Platelet Count 79 10^3/uL (150-450); Red Blood Count 2.58 10^6 /uL (3.70-4.87); Red Cell Distribution Width 18 % (10-15); White Blood Count 3.2 10^3/uL (3.5-10.8)
[2019-05-28] MEDS: Gabapentin CAP(*) 300 MG PO SCH ×3 (09:54→21:40)
[2019-05-28] MEDS: Magnesium Oxide TAB* 400 MG PO SCH ×2 (09:54→21:39)
[2019-05-28] MEDS: QUEtiapine TAB* 100 MG PO SCH ×2 (09:54→21:40)
[2019-05-28] MEDS: Sucralfate SUSP 1 GM/10 ml 10 ML UDC PO SCH ×4 (09:54→20:37)
[2019-05-28] MEDS: BuPROPion XL* 150 MG TAB.XL PO SCH (09:54)
[2019-05-28] MEDS: CMCS: Omeprazole CAP (NF) 20 MG CAP.DR PO SCH ×2 (09:55→22:48)
[2019-05-28 10:54] LABS: Polychromasia 1+
[2019-05-28 11:04] LABS: ABS Eosinophils 0.2 10^3/ul (0-0.6)
[2019-05-28 11:14] LABS: Hepatitis B Surface Ab QNS (Immune)
[2019-05-28] MEDS: Cyanocobalamin INJ * 1,000 MCG/ML VIAL 1 ML VIAL IM SCH (12:08)
[2019-05-28] MEDS ORDERED: Vancomycin Trough Check NOTE FOLLOW UP ONE (13:30)
[2019-05-28] MEDS: Acetaminophen TAB* 325 MG PO PRN (15:03)
--- NOTE | 2019-05-28 17:40 | PN ---
Subjective Date of Service: 05/28/19 Interval History: patient seen today, no events overnight. we were able to place the picc line again today. I did inquire with pt regarding her self injecting benadryl into her picc line. She state she did use tap water to dissolve the Benadryl and flush the picc line,. however she did not use syringes from the sharp container. it was an empty NS flush that was left on her bedding. She regrets doing that and assured me will not do it again. also I discussed with her tapering her codeine and was reluctant but agreed to initiate taper. Past Medical History: Unchanged from Admission Objective Active Medications: Acetaminophen (Tylenol Tab*) 650 mg PO Q4H PRN PRN Reason: MILD PAIN or TEMP > 100.4 Last Admin: 05/28/19 15:03 Dose: 650 mg Bupropion HCl (Wellbutrin Xl *) 300 mg PO DAILY [facility] Last Admin: 05/28/19 09:54 Dose: 300 mg Cyanocobalamin (Vitamin B12 Inj *) 1,000 mcg IM DAILY [facility] Stop: 06/01/19 11:59 Last Admin: 05/28/19 12:08 Dose: 1,000 mcg Diphenhydramine HCl (Benadryl Po*) 25 mg PO BEDTIME PRN PRN Reason: INSOMNIA Gabapentin (Neurontin Cap(*)) 300 mg PO TID [facility] Last Admin: 05/28/19 15:02 Dose: 300 mg Heparin Sodium (Porcine) (Heparin Flush Picc/Ml/Cvc(*)) 1 - 3 ml FLUSH 0600, 1800 [facility]; Protocol Cefepime HCl (Maxipime 1 Gm In Dextrose Duplex (*)) 1 gm in 50 mls @ 100 mls/ hr IV Q12H [facility] Last Admin: 05/28/19 12:04 Dose: 100 mls/hr Vancomycin HCl 750 mg/ Sodium (Chloride) 250 mls @ 166.667 mls/hr IVPB 0600, 1400,2200 [facility] Last Admin: 05/28/19 15:04 Dose: 166.667 mls/hr Dextrose 500 ml/ Amino Acids 850 ml/ Sterile Water 150 ml/Fat Emulsion Intravenous 250 ml/ Sodium Chloride 75 meq/Potassium Chloride 25 meq/Potassium Phosphate 5 mmole/Calcium Gluconate 15 meq/Magnesium Sulfate 20 meq/ Multivitamins 10 ml/ Trace Metals 1 ml/ Potassium Acetate 25 meq/ Nutrition ( Parenteral ) 1,843.6008 mls @ 76.817 mls/hr CENTR 1700 [facility]; Protocol Levothyroxine Sodium (Synthroid Tab*) 25 mcg PO DAILY@0600 [facility] Last Admin: 05/28/19 06:01 Dose: 25 mcg Magnesium Oxide (Magox 400 Tab*) 400 mg PO BID [facility] Last Admin: 05/28/19 09:54 Dose: 400 mg Midodrine (Midodrine) 5 mg PO BID [facility]; Protocol Last Admin: 05/28/19 09:54 Dose: 5 mg Omeprazole (Prilosec Cap* (Nf)) 40 mg PO BID [facility] Last Admin: 05/28/19 09:55 Dose: 40 mg Ondansetron HCl (Zofran Inj*) 4 mg IV Q8H PRN PRN Reason: NAUSEA Last Admin: 05/28/19 15:04 Dose: 4 mg Oxycodone HCl (Roxycodone Tab*) 5 mg PO Q8H PRN PRN Reason: PAIN - SEVERE Last Admin: 05/28/19 12:16 Dose: 5 mg Pharmacy Consult (Vancomycin Per Pharmacy*) 1 note FOLLOW UP .VANC PER PHARMACY [facility]; Protocol Quetiapine Fumarate (Seroquel Tab*) 100 mg PO BID [facility] Last Admin: 05/28/19 09:54 Dose: 100 mg Sucralfate (Sucralfate Susp) 1 gm PO ACHS [facility] Last Admin: 05/28/19 12:45 Dose: 1 gm Zolpidem Tartrate (Ambien Tab*) 5 mg PO BEDTIME PRN PRN Reason: INSOMNIA Vital Signs - 8 hr 05/28/19 05/28/19 05/28/19 09:40 09:54 12:16 Temperature Pulse Rate Respiratory 18 18 16 Rate Blood Pressure (mmHg) O2 Sat by Pulse Oximetry 05/28/19 05/28/19 15:02 15:16 Temperature 98.9 F Pulse Rate 87 Respiratory 18 18 Rate Blood Pressure 106/73 (mmHg) O2 Sat by Pulse 100 Oximetry Oxygen Devices in Use Now: None Appearance: awake. alert no distress Eyes: No Scleral Icterus, - - EOMI Ears/Nose/Mouth/Throat: NL Teeth, Lips, Gums, Mucous Membranes Moist Neck: NL Appearance and Movements; NL JVP, Trachea Midline Respiratory: Symmetrical Chest Expansion and Respiratory Effort, Clear to Auscultation Cardiovascular: NL Sounds; No Murmurs; No JVD Abdominal: NL Sounds; No Tenderness; No Distention - Nutrition: Malnutrition Diagnosis/Plan Malnutrition Assessment by Registered Dietitian: Malnutrition Assessment Clinical Characteristics Chronic,Severe Malnutrition Assessment: Previous Admission Criteria Met: Criteria Muscle Wasting - Clavicular muscles (severe) Inadequate Oral Intake - 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 - anticipate meeting <75% nutrient needs >1 mo (severe) Unintentional Weight Loss - Pt reports >400lb wt loss 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, endorsing unintentional wt loss x4 mos; current wt 120lb, UBW 170lb x4 mos ago - 29.4% loss x4 mos ( severe ) Current Admission Criteria Met: Muscle Wasting - Clavicular muscles (severe) Unintentional Weight Loss - Current wt 140lb, UBW 170lb x5 mos ago - 17.6% difference x5 mos ( severe) Malnutrition Assessment: Nutrient Delivery - Short-term PPN (Peripheral Interventions Base A) ordered w/ plans to reinitiate TPN ( [facility]) following new PICC placement Labs - Will monitor labs closely in the setting of PPN/TPN GI Related - Recommend continuing pain mgmt PRN ; will monitor GI s/sx for development Malnutrition Assessment: Goals 1) Adequate parenteral infusion to replete lean body mass and support hydration status 2) Maintain fluid/electrolyte balance w/ adequate parenteral infusion 3) Maintain glycemic control w/ adequate parenteral infusion w/o s/sx hypo-/ hyperglycemia Result Diagrams: 05/28/19 08:19 05/28/19 05:59 Assess/Plan/Problems-Billing Assessment: 43 y/o female readmitted to medical floor for fever, rule out sepsis with prolonged hospitalization related to malnutrition. She has knows [facility] of bipolar, PTSD, DVT, recurrent SBO. Her initial presentation to the ER dates back to 04/15/19 for abd pain, N/V and inability to tolerate PO intake found to have ulcer at stomach anastomosis, possible stricture at anastomosis, severe protein-calorie malnutrition was on TPN for total course of 8 weeks followed by EGD at a tertiary care center but on 05/25/19 staff noted pink liquid in her picc line and turned out the patient self injected benadryl into her picc line followed by fever, hence transferred to acute bed status for fever rule out sepsis. - Patient Problems (1) Fever Current Visit: No Status: Acute Code(s): R50.9 - FEVER, UNSPECIFIED SNOMED Code(s): 244406312 Comment: - Given her low WBC's , fever 102.9 on 05/25/19, tacycardia - she was place in acute bed status pending her final cultures - she did and still have neck pain and stiffness that started on Saturday and she still have it. However her fever and mentations improving. I will seek ID input if we should continue treatment for empirically meningitis. - started vancomycin day # 3 and cefepime day # 3. <55 y/o would not require listeria coverage - patient did have a PICC line - blood culture was taken from the PICC is neg at 48 hrs - (2) Anemia Current Visit: No Status: Acute Code(s): D64.9 - ANEMIA, UNSPECIFIED SNOMED Code(s): 566591513 Comment: - Mixed etiology secondary to AOCD, and secondary to malnutrition - Continue omeprazole - Hgb is 8.5 today 05/28/19. s/p one unit yesterday 05/27/19. - Added B12 injections - Hematology consult noted and appreciated. (3) Bipolar disorder Current Visit: No Status: Acute Code(s): F31.9 - BIPOLAR DISORDER, UNSPECIFIED SNOMED Code(s): 19226769 Comment: - Continue bupropion 300 mg daily; Seroquel 100 mg bid, hydroxyzine prn - given her recent self injection of benadryl into her picc line we did call [facility] to evaluate the patient given the risk of self harm. she was cleared from 1:1 (4) Chronic malnutrition Current Visit: No Status: Acute Code(s): E46 - UNSPECIFIED PROTEIN-CALORIE MALNUTRITION SNOMED Code(s): 5171563 Comment: - Chronic, severe - Crruently on clear liquid due to severity of ulceration and GI recommendations - will resume TPN - Appreciate input from Dietary and Pharmacy (5) Gastrojejunal ulcer Current Visit: No Status: Acute Code(s): K28.9 - GASTROJEJUNAL ULCER, UNSP ACUTE OR CHR, W/O HEMOR OR PERF SNOMED Code(s): 33494171 Comment: - Multiple recent hospitalizations - EGD on 04/29/19 showing severe ulceration at anastomosis; unable to pass EGD scope to evaluate - Appreciate GI consult; recommends clear liquids, PPI, no NSAIDS - Appreciate Surgery consult; no surgery at this time, agrees with NPO and TPN - Recommended f/u at [facility] with [facility] as outpatient for repeat EGD in 6-8 weeks ( from 04/29/19) - Continue PPN/TPN until symptoms nakul and is able to tolerate adequate oral intake. - Outpatient TPN not an option per Case Management as the patient does not have a home to go to and limited motivation for independent medical care; home TPN not an option per Medicare - Continue Zofran, omeprazole, Carafate (6) History of DVT (deep vein thrombosis) Current Visit: No Status: Acute Code(s): Z86.718 - PERSONAL HISTORY OF OTHER VENOUS THROMBOSIS AND EMBOLISM SNOMED Code(s): 640031616 Comment: - History of DVT August 2018 - No residual clot (7) Hypomagnesemia Current Visit: No Status: Acute Code(s): E83.42 - HYPOMAGNESEMIA SNOMED Code(s): 900087468 Comment: - Repleting with her PPN/TPN - Continue mag oxide BID (8) Hypotension Current Visit: No Status: Acute Comment: - Likely due to malnutrition, anemia - Cortisol and TFT normal - Continue midodrine 5 mg bid (9) Hypothyroidism Current Visit: No Status: Acute Code(s): E03.9 - HYPOTHYROIDISM, UNSPECIFIED SNOMED Code(s): 25720317 Comment: - Continue levothyroxine 25 mcg daily (10) Leukopenia Current Visit: No Status: Acute Code(s): D72.819 - DECREASED WHITE BLOOD CELL COUNT, UNSPECIFIED SNOMED Code(s): 74740266 Comment: - Now pancytopenia - Chronic, likely due to malnutrition - B12 low normal I did start her on B12 shots - I did request Heme/Onc consult for further recommendations (11) Thrombocytopenia Current Visit: No Status: Acute Code(s): D69.6 - THROMBOCYTOPENIA, UNSPECIFIED SNOMED Code(s): 150307471 Comment: - Now pancytopenia - Chronic, likely due to malnutrition - B12 low normal I did start her on B12 shots - I did request Heme/Onc consult for further recommendations (12) DVT prophylaxis Current Visit: No Status: Acute Code(s): Z29.9 - ENCOUNTER FOR PROPHYLACTIC MEASURES, UNSPECIFIED SNOMED Code(s): 009527748 Comment: - SCD due to thrombocytopenia
[2019-05-28] MEDS: TPN* 24 HR with Dextrose 50% Water* 500 ML, Amino Acid Infusion 10%* 850 ML, Sterile Wa... CENTR SCH ×13 (18:02)
[2019-05-28] MEDS: Zolpidem TAB* 5 MG PO PRN (21:39)
[2019-05-29] MEDS: Cefepime 1 GM in Dextrose(*) 1 GM/50 ML BAG IV SCH ×2 (01:08→13:36)
[2019-05-29] MEDS: oxyCODONE TAB* 5 MG TAB PO PRN ×2 (05:14→15:21)
[2019-05-29] MEDS: Levothyroxine TAB* 25 MCG TAB PO SCH (05:14)
[2019-05-29] MEDS: Vancomycin(*) 750 MG in NS 0.9% 250 ML* 250 ML IVPB SCH ×3 (05:44→21:56)
[2019-05-29 06:33] LABS: ABS Basophils 0.1 10^3/ul (0-0.2); ABS Eosinophils 0.1 10^3/ul (0-0.6); ABS Monocytes 0.9 10^3/ul (0-0.8); ABS Neutrophils 1.7 10^3/ul (1.5-7.7); Eosinophil % 3.4 %; Hematocrit 22 % (35-47); Hemoglobin 7.3 g/dL (12.0-16.0); Lymphocyte % 27.6 %; Mean Corpuscular HGB Conc 34 g/dL (31-36); Mean Corpuscular Hemoglobin 33 pg (27-31); Mean Corpuscular Volume 98 fL (80-97); Mean Platelet Volume 11.7 fL (7.4-10.4); Nucleated Red Blood Cells % 0.2; Platelet Count 73 10^3/uL (150-450); Red Cell Distribution Width 18 % (10-15); White Blood Count 3.8 10^3/uL (3.5-10.8)
[2019-05-29 06:38] LABS: Albumin 2.5 g/dL (3.2-5.2); BUN/Creatinine Ratio 14.8 (8-20); Calcium 7.8 mg/dL (8.6-10.3); EGFR African American 130.1 (>60); EGFR Non-African American 107.6 (>60); Globulin 2.5 g/dL (2-4); Magnesium 1.5 mg/dL (1.9-2.7); Phosphorus 3.3 mg/dL (2.5-5.0); Total Bilirubin 0.4 mg/dL (0.2-1.0)
[2019-05-29] MEDS: Sucralfate SUSP 1 GM/10 ml 10 ML UDC PO SCH ×4 (08:07→20:13)
[2019-05-29] MEDS: Magnesium Oxide TAB* 400 MG PO SCH ×2 (09:50→20:12)
[2019-05-29] MEDS: Gabapentin CAP(*) 300 MG PO SCH ×3 (09:50→20:12)
[2019-05-29] MEDS: QUEtiapine TAB* 100 MG PO SCH ×2 (09:50→20:13)
[2019-05-29] MEDS: CMCS: Omeprazole CAP (NF) 20 MG CAP.DR PO SCH ×2 (09:50→20:11)
[2019-05-29] MEDS: Cyanocobalamin INJ * 1,000 MCG/ML VIAL 1 ML VIAL IM SCH (09:51)
[2019-05-29] MEDS: BuPROPion XL* 150 MG TAB.XL PO SCH (09:51)
[2019-05-29] MEDS: Acetaminophen TAB* 325 MG PO PRN (11:52)
[2019-05-29] MEDS: Ondansetron INJ* 2 MG/ML VIAL IV PRN (11:52)
--- NOTE | 2019-05-29 16:13 | PN ---
Subjective Date of Service: 05/29/19 Interval History: patient seen today, doing well. her neck pain is better. remain afebrile. no distress. tolerating her TPN well Past Medical History: Unchanged from Admission Objective Active Medications: Acetaminophen (Tylenol Tab*) 650 mg PO Q4H PRN PRN Reason: MILD PAIN or TEMP > 100.4 Last Admin: 05/29/19 11:52 Dose: 650 mg Bupropion HCl (Bupropion Xl*) 300 mg PO DAILY [facility] Cyanocobalamin (Vitamin B12 Inj *) 1,000 mcg IM DAILY [facility] Stop: 06/01/19 11:59 Last Admin: 05/29/19 09:51 Dose: 1,000 mcg Diphenhydramine HCl (Benadryl Po*) 25 mg PO BEDTIME PRN PRN Reason: INSOMNIA Gabapentin (Neurontin Cap(*)) 300 mg PO TID [facility] Last Admin: 05/29/19 13:36 Dose: 300 mg Heparin Sodium (Porcine) (Heparin Flush Picc/Ml/Cvc(*)) 1 - 3 ml FLUSH 0600, 1800 [facility]; Protocol Last Admin: 05/29/19 05:44 Dose: 1 ml Cefepime HCl (Maxipime 1 Gm In Dextrose Duplex (*)) 1 gm in 50 mls @ 100 mls/ hr IV Q12H [facility] Last Admin: 05/29/19 13:36 Dose: 100 mls/hr Vancomycin HCl 750 mg/ Sodium (Chloride) 250 mls @ 166.667 mls/hr IVPB 0600, 1400,2200 [facility] Last Admin: 05/29/19 14:36 Dose: 166.667 mls/hr Dextrose 500 ml/ Amino Acids 850 ml/ Sterile Water 150 ml/Fat Emulsion Intravenous 250 ml/ Sodium Chloride 75 meq/Potassium Chloride 25 meq/Potassium Phosphate 5 mmole/Calcium Gluconate 15 meq/Magnesium Sulfate 20 meq/ Multivitamins 10 ml/ Trace Metals 1 ml/ Potassium Acetate 25 meq/ Nutrition ( Parenteral ) 1,843.6008 mls @ 76.817 mls/hr CENTR 1700 [facility]; Protocol Last Admin: 05/28/19 18:02 Dose: 76.817 mls/hr Levothyroxine Sodium (Synthroid Tab*) 25 mcg PO DAILY@0600 [facility] Last Admin: 05/29/19 05:14 Dose: 25 mcg Magnesium Oxide (Magox 400 Tab*) 800 mg PO BID [facility] Last Admin: 05/29/19 09:50 Dose: 800 mg Midodrine (Midodrine) 5 mg PO BID [facility]; Protocol Last Admin: 05/29/19 09:50 Dose: 5 mg Omeprazole (Prilosec Cap* (Nf)) 40 mg PO BID [facility] Last Admin: 05/29/19 09:50 Dose: 40 mg Ondansetron HCl (Zofran Inj*) 4 mg IV Q8H PRN PRN Reason: NAUSEA Last Admin: 05/29/19 11:52 Dose: 4 mg Oxycodone HCl (Roxycodone Tab*) 5 mg PO Q8H PRN PRN Reason: PAIN - SEVERE Last Admin: 05/29/19 15:21 Dose: 5 mg Pharmacy Consult (Vancomycin Per Pharmacy*) 1 note FOLLOW UP .VANC PER PHARMACY [facility]; Protocol Pharmacy Profile Note (Vancomycin Trough Check) 1 note FOLLOW UP 0530 [facility] Stop: 05/31/19 05:31 Quetiapine Fumarate (Seroquel Tab*) 100 mg PO BID [facility] Last Admin: 05/29/19 09:50 Dose: 100 mg Sucralfate (Sucralfate Susp) 1 gm PO ACHS [facility] Last Admin: 05/29/19 11:52 Dose: 1 gm Zolpidem Tartrate (Ambien Tab*) 5 mg PO BEDTIME PRN PRN Reason: INSOMNIA Last Admin: 05/28/19 21:39 Dose: 5 mg Vital Signs - 8 hr 05/29/19 05/29/19 05/29/19 09:50 11:15 11:53 Temperature 98 F Pulse Rate 54 Respiratory 18 16 16 Rate Blood Pressure 102/71 (mmHg) O2 Sat by Pulse 94 Oximetry 05/29/19 05/29/19 13:36 15:21 Temperature Pulse Rate Respiratory 18 16 Rate Blood Pressure (mmHg) O2 Sat by Pulse Oximetry Oxygen Devices in Use Now: None Appearance: awake, alert no distress Eyes: No Scleral Icterus Ears/Nose/Mouth/Throat: NL Teeth, Lips, Gums, Mucous Membranes Moist Neck: NL Appearance and Movements; NL JVP, Trachea Midline Respiratory: Symmetrical Chest Expansion and Respiratory Effort, Clear to Auscultation Cardiovascular: NL Sounds; No Murmurs; No JVD, No Edema Abdominal: NL Sounds; No Tenderness; No Distention Extremities: No Edema - Nutrition: Malnutrition Diagnosis/Plan Malnutrition Assessment by Registered Dietitian: Malnutrition Assessment Clinical Characteristics Chronic,Severe Malnutrition Assessment: Previous Admission Criteria Met: Criteria Muscle Wasting - Clavicular muscles (severe) Inadequate Oral Intake - 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 - anticipate meeting <75% nutrient needs >1 mo (severe) Unintentional Weight Loss - Pt reports >400lb wt loss 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, endorsing unintentional wt loss x4 mos; current wt 120lb, UBW 170lb x4 mos ago - 29.4% loss x4 mos ( severe ) Current Admission Criteria Met: Muscle Wasting - Clavicular muscles (severe) Unintentional Weight Loss - Current wt 140lb, UBW 170lb x5 mos ago - 17.6% difference x5 mos ( severe) Malnutrition Assessment: Nutrient Delivery - Short-term PPN (Peripheral Interventions Base A) ordered w/ plans to reinitiate TPN ( [facility]) following new PICC placement Labs - Will monitor labs closely in the setting of PPN/TPN GI Related - Recommend continuing pain mgmt PRN ; will monitor GI s/sx for development Malnutrition Assessment: Goals 1) Adequate parenteral infusion to replete lean body mass and support hydration status 2) Maintain fluid/electrolyte balance w/ adequate parenteral infusion 3) Maintain glycemic control w/ adequate parenteral infusion w/o s/sx hypo-/ hyperglycemia Result Diagrams: 05/29/19 05:45 05/29/19 05:45 Assess/Plan/Problems-Billing Assessment: 43 y/o female readmitted to medical floor for fever, rule out sepsis with prolonged hospitalization related to malnutrition. She has knows [facility] of bipolar, PTSD, DVT, recurrent SBO. Her initial presentation to the ER dates back to 04/15/19 for abd pain, N/V and inability to tolerate PO intake found to have ulcer at stomach anastomosis, possible stricture at anastomosis, severe protein-calorie malnutrition was on TPN for total course of 8 weeks followed by EGD at a tertiary care center but on 05/25/19 staff noted pink liquid in her picc line and turned out the patient self injected benadryl into her picc line followed by fever, hence transferred to acute bed status for fever rule out sepsis. - Patient Problems (1) Fever Current Visit: No Status: Acute Code(s): R50.9 - FEVER, UNSPECIFIED SNOMED Code(s): 157016652 Comment: - Given her low WBC's , fever 102.9 on 05/25/19, tacycardia - she was place in acute bed status pending her final cultures - she had neck pain and stiffness that started on Saturday and she report it has improved. I did request ID input if we should continue treatment for empirically meningitis. - started vancomycin day # 4 and cefepime day # 4. <55 y/o would not require listeria coverage - patient did have a PICC line - blood culture was taken from the PICC is neg - (2) Anemia Current Visit: No Status: Acute Code(s): D64.9 - ANEMIA, UNSPECIFIED SNOMED Code(s): 898242880 Comment: - Mixed etiology secondary to AOCD, and secondary to malnutrition - Continue omeprazole - Hgb is 8.5 05/28/19. s/p one unit Hgb drifting down again. monitor daily and transfuse prn - Added B12 injections - Hematology consult noted and appreciated. (3) Bipolar disorder Current Visit: No Status: Acute Code(s): F31.9 - BIPOLAR DISORDER, UNSPECIFIED SNOMED Code(s): 38556994 Comment: - Continue bupropion 300 mg daily; Seroquel 100 mg bid, hydroxyzine prn - given her recent self injection of benadryl into her picc line we did call [facility] to evaluate the patient given the risk of self harm. she was cleared from 1:1 (4) Chronic malnutrition Current Visit: No Status: Acute Code(s): E46 - UNSPECIFIED PROTEIN-CALORIE MALNUTRITION SNOMED Code(s): 2772586 Comment: - Chronic, severe - Crruently on clear liquid due to severity of ulceration and GI recommendations - Resumed TPN on 05/28/19. Picc line placed - Appreciate input from Dietary and Pharmacy (5) Gastrojejunal ulcer Current Visit: No Status: Acute Code(s): K28.9 - GASTROJEJUNAL ULCER, UNSP ACUTE OR CHR, W/O HEMOR OR PERF SNOMED Code(s): 10178863 Comment: - Multiple recent hospitalizations - EGD on 04/29/19 showing severe ulceration at anastomosis; unable to pass EGD scope to evaluate - Appreciate GI consult; recommends clear liquids, PPI, no NSAIDS - Appreciate Surgery consult; no surgery at this time, agrees with NPO and TPN - Recommended f/u at [facility] with [facility] as outpatient for repeat EGD in 6-8 weeks ( from 04/29/19) - Continue PPN/TPN until symptoms nakul and is able to tolerate adequate oral intake. - Outpatient TPN not an option per Case Management as the patient does not have a home to go to and limited motivation for independent medical care; home TPN not an option per Medicare - Continue Zofran, omeprazole, Carafate (6) History of DVT (deep vein thrombosis) Current Visit: No Status: Acute Code(s): Z86.718 - PERSONAL HISTORY OF OTHER VENOUS THROMBOSIS AND EMBOLISM SNOMED Code(s): 144884783 Comment: - History of DVT August 2018 - No residual clot (7) Hypomagnesemia Current Visit: No Status: Acute Code(s): E83.42 - HYPOMAGNESEMIA SNOMED Code(s): 834929613 Comment: - Repleting with her PPN/TPN - Continue mag oxide BID (8) Hypotension Current Visit: No Status: Acute Comment: - Likely due to malnutrition, anemia - Cortisol and TFT normal - Continue midodrine 5 mg bid (9) Hypothyroidism Current Visit: No Status: Acute Code(s): E03.9 - HYPOTHYROIDISM, UNSPECIFIED SNOMED Code(s): 18567237 Comment: - Continue levothyroxine 25 mcg daily (10) Leukopenia Current Visit: No Status: Acute Code(s): D72.819 - DECREASED WHITE BLOOD CELL COUNT, UNSPECIFIED SNOMED Code(s): 92321436 Comment: - Now pancytopenia - Chronic, likely due to malnutrition - B12 low normal I did start her on B12 shots - Heme/Onc consult input appreciated (11) Thrombocytopenia Current Visit: No Status: Acute Code(s): D69.6 - THROMBOCYTOPENIA, UNSPECIFIED SNOMED Code(s): 644508749 Comment: - Now pancytopenia - Chronic, likely due to malnutrition - B12 low normal I did start her on B12 shots - Heme/Onc consult input appreciated (12) DVT prophylaxis Current Visit: No Status: Acute Code(s): Z29.9 - ENCOUNTER FOR PROPHYLACTIC MEASURES, UNSPECIFIED SNOMED Code(s): 549727674 Comment: - SCD due to thrombocytopenia
[2019-05-29] MEDS: TPN* 24 HR with Dextrose 50% Water* 500 ML, Amino Acid Infusion 10%* 850 ML, Sterile Wa... CENTR SCH ×13 (17:34)
--- NOTE | 2019-05-29 19:45 | CONS ---
CONSULTATION REPORT: DATE OF CONSULT: 05/29/19 PRIMARY CARE PROVIDER: Dr. Zac Adrian. PROVIDER REQUESTING CONSULTATION: Dr. Nicolas Barnes. CONSULTING SERVICE: Infectious Disease. PROVIDER: Aziza Louie NP. ATTENDING PROVIDER: Dr. Viraj Boston.* (DICTATED BY AZIZA LOUIE NP) REASON FOR CONSULT: Fevers with associated headache and neck pain, possible meningitis. IMPRESSION: 1. Fever. The patient has had a negative workup. Blood cultures with no growth on day 3. PICC line was removed and the tip cultured with no growth on day 2. Urine culture with no growth. No acute findings on chest x-ray or abdomen and pelvis CT. Temperature max was 102.9. The patient has been on cefepime and vancomycin. She does continue to report neck pain with headaches. Differential includes meningitis, although this seems less likely, viral illness, C-diff, PICC line infection. Denies diarrhea. PICC line and blood cultures with no growth. She has not had an LP due to her thrombocytopenia. 2. Injection of crushed medications in the PICC line. PICC line site is benign and she had no growth in the cultures from the PICC line that was removed. 3. Headaches. The patient does have a history of migraines and has discomfort in her neck. She has no nuchal rigidity. There is tenderness with palpation of the cervical spine. 4. Thrombocytopenia. 5. ERYTHROMYCIN allergy caused hives. PLAN: Recommend continuing cefepime and vancomycin for now. The patient should have a lumbar puncture to definitively rule in or rule out meningitis when her platelet count allows. Further recommendations will be based on the patient's clinical course and results of a lumbar puncture. If we are unable to obtain a lumbar puncture, we may need to consider a long-term course of antibiotics. Obtain neck imaging to see as part of the patient's neck pain is secondary to a spine process. HISTORY OF PRESENT ILLNESS: Ms. Callaway is a 43-year-old female with a past medical history significant for bipolar disorder, PTSD, Maulik thyroiditis, GI bleed, history of lower extremity DVT, multiple small bowel obstructions, a remote history of latent TB, migraines, lower extremity peripheral neuropathy, diabetes prior to gastric bypass, rheumatoid arthritis, osteoarthritis, who was admitted to the hospital with a GI bleed and found to have gastric ulcers. She was ultimately admitted to [facility] for 6 to 8 weeks of TPN and bowel rest. She was doing well until the morning of 05/25/19 when she developed a fever of 102.9. At that time, she had a sepsis workup for a fever of unknown origin. She had a urine culture that was negative. A chest x-ray, CT of the abdomen and pelvis with no acute findings. Due to her persistent fever, she was started on vancomycin and ceftriaxone to cover the fever of unknown origin. The patient states that 1 week ago she had developed a headache starting in her right neck radiating up into her head into the temporal area on the right. She states this was different than her typical headache as it usually did not start in the neck. On Saturday, the headache was not improving, she took a Benadryl tablet out of her purse, crushed it, and used tap water and a syringe she found in her room and injected herself vi the PICC line with crushed Benadryl mixed with tap water. This prompted the removal of her PICC line and culture. She had no growth from the PICC line culture. Additionally, she has had blood cultures with no growth. She has been continued on cefepime and vancomycin. She has not had a lumbar puncture due to her thrombocytopenia. She states that the headache has improved and is from a 10/10 to now a 7/10, but continues to start in her neck and radiate up into her right holiness. No change in the headaches with position changes, at this time. She felt when she was having the fevers, the headache was worse when lying down. She reports no changes in her vision, but feels that when she is upright she may have mild blurry vision. She had some chills when she was having fevers, but the chills have resolved as well as the fevers. She was having some shortness of breath with exertion, but this has improved. She reports diffuse joint pain at baseline due to rheumatoid arthritis and osteoarthritis, and feels that this is at baseline and not increased. She has no joint swelling. She reports nausea, which has been ongoing since her initial admission. Denies vomiting or diarrhea. She reports diffuse abdominal pain in the left upper quadrant and in the lower quadrants. She denies any urinary symptoms other than urgency, but has been getting a large amount of IV fluids and feels this is secondary to that. She reports some nasal congestion and generalized itching of her skin. Her fevers have resolved. She has been afebrile since the evening of 05/26/19. PAST MEDICAL HISTORY: 1. Bipolar disorder. 2. Posttraumatic stress disorder. 3. Maulik thyroiditis. 4. GI bleed. 5. Provoked lower extremity DVT. 6. Small bowel obstructions. 7. Obesity. 8. Latent tuberculosis. 9. Migraines. 10. Lower extremity peripheral neuropathy. 11. Diabetes, she states she is no longer on treatment since gastric bypass. 12. Rheumatoid arthritis. 13. Osteoarthritis. PAST SURGICAL HISTORY: 1. Status post gastric bypass. 2. Status post appendectomy. 3. Status post hysterectomy. 4. Status post tubal ligation. 5. Status post cholecystectomy. 6. Status post hernia repair. 7. Status post resection of SMA. 8. Status post right salpingo-oophorectomy. 9. Status post lysis of adhesions. MEDICATIONS: Home medications: 1. Atarax 50 mg by mouth every 8 hours as needed for anxiety. 2. Carafate 1 g IV 4 times daily. 3. Seroquel 100 mg by mouth twice daily. 4. Levothyroxine 25 mcg by mouth daily. 5. Neurontin 300 mg by mouth 3 times daily. 6. Bupropion 300 mg by mouth daily. 7. Eliquis 5 mg by mouth twice daily. 8. Pantoprazole 40 mg by mouth daily. 9. Amitiza 24 mcg by mouth twice daily. 10. Colace 100 mg by mouth twice daily. 11. Bentyl 10 mg by mouth 3 times daily as needed for pain. Hospital medications: 1. Acetaminophen 650 mg by mouth every 4 hours as needed for fever or pain. 2. Bupropion 300 mg by mouth daily. 3. Cefepime 1 g IV q.12 hours. 4. Vitamin B12 1000 mcg IM daily. 5. Benadryl 25 mg by mouth daily as needed for insomnia. 6. Gabapentin 300 mg by mouth 3 times daily. 7. Heparin sodium 1 to 3 mL IV flush via PICC line twice daily. 8. Levothyroxine 25 mcg by mouth daily. 9. Magnesium oxide 800 mg by mouth twice daily. 10. Midodrine 5 mg by mouth twice daily. 11. TPN intravenously. 12. Omeprazole 40 mg by mouth twice daily. 13. Zofran 4 mg IV every 8 hours as needed for nausea. 14. Oxycodone 5 mg by mouth every 8 hours as needed for pain. 15. Seroquel 100 mg by mouth twice daily. 16. Sucralfate 1 g by mouth before meals and at bedtime. 17. Vancomycin 750 mg IV every 8 hours. 18. Ambien 5 mg by mouth at bedtime as needed for sleep. ALLERGIES: 1. ERYTHROMYCIN caused hives. 2. REGLAN. 3. MACROBID. 4. NSAIDs. 5. TERBUTALINE. FAMILY HISTORY: Denies any family history of recurrent or resistant infections. No family history of coronary artery disease. Father with a history of diabetes. Sister with a history of colon cancer. SOCIAL HISTORY: She denies alcohol use. She is a former smoker. She states she quit at the time of her admission on 04/27/19. Prior to that, she smoked 5 to 10 cigarettes daily since she was a teenager. She previously smoked marijuana daily, but states she has been clean for 2-1/2 years. REVIEW OF SYSTEMS: I performed a 10-point review of systems. All the pertinent positives and negatives are mentioned in the history of present illness. The remaining review of systems are negative. PHYSICAL EXAM: Vital Signs: Temperature 97.9, heart rate 76, respiratory rate 16, O2 sat 100% on room air, blood pressure 94/59. General Appearance: Alert, appears to be in no acute distress. Head: Normocephalic, atraumatic. EENT: Extraocular movements are intact. No subconjunctival hemorrhage. Moist mucous membranes. Neck: Supple. There is no lymphadenopathy noted. She is noted to have some tenderness to the midline of her neck into the right lower neck with palpation. She has no nuchal rigidity. Neurological: Alert and oriented. Cranial nerves II through XII are grossly intact. She moves all extremities. Cardiovascular: Regular rate and rhythm. S1, S2 present. There are no murmurs , rubs, or gallops heard. Respiratory: No accessory muscle use. The lungs are clear to auscultation bilaterally. Abdomen: Bowel sounds present. Abdomen is large, soft, tender with diffuse tenderness with palpation. Extremities: No lower extremity edema. DP and PT pulses are 2+ and symmetric. Musculoskeletal: No clubbing or cyanosis noted. She exhibits good strength in all extremities. She has no edema or erythema of any of her joints. There is full range of motion. Psychological: Calm and cooperative. Skin: No rashes or abnormalities seen on the exposed skin. DIAGNOSTIC STUDIES/LAB DATA: Sodium 140, potassium 4.0, chloride 113, CO2 of 24 , BUN 9, creatinine 0.61, glucose 84. White blood cell count 3.8, hemoglobin 7.3, hematocrit 22, platelet count 73. Please see impression and recommendations outlined above. Recommendations have been discussed with Dr. Nicolas Barnes. Thank you for asking us to see Ms. Callaway in consultation. The case has been reviewed with my attending Dr. Viraj Boston, who agrees with the plan of care. Reviewed by ERWIN HOLT 06/01/19 1825 [id number]/[facility] #: [id number] MTDD
[2019-05-29] MEDS: Zolpidem TAB* 5 MG PO PRN (20:11)
[2019-05-30] MEDS: Cefepime 1 GM in Dextrose(*) 1 GM/50 ML BAG IV SCH ×2 (01:16→14:15)
[2019-05-30] MEDS: oxyCODONE TAB* 5 MG TAB PO PRN ×3 (04:49→22:11)
[2019-05-30] MEDS: Levothyroxine TAB* 25 MCG TAB PO SCH (04:49)
[2019-05-30] MEDS: Vancomycin(*) 750 MG in NS 0.9% 250 ML* 250 ML IVPB SCH ×3 (04:50→22:09)
[2019-05-30 05:26] LABS: ABS Eosinophils 0.1 10^3/ul (0-0.6); ABS Monocytes 0.4 10^3/ul (0-0.8); ABS Neutrophils 2.1 10^3/ul (1.5-7.7); Eosinophil % 3.4 %; Hematocrit 24 % (35-47); Hemoglobin 7.6 g/dL (12.0-16.0); Lymphocyte % 27.1 %; Mean Corpuscular HGB Conc 32 g/dL (31-36); Mean Corpuscular Hemoglobin 32 pg (27-31); Mean Corpuscular Volume 99 fL (80-97); Mean Platelet Volume 11.3 fL (7.4-10.4); Platelet Count 87 10^3/uL (150-450); Red Blood Count 2.38 10^6 /uL (3.70-4.87); Red Cell Distribution Width 17 % (10-15); White Blood Count 3.6 10^3/uL (3.5-10.8)
[2019-05-30 05:44] LABS: Calcium 8.2 mg/dL (8.6-10.3); Magnesium 1.6 mg/dL (1.9-2.7)
[2019-05-30 05:50] LABS: BUN/Creatinine Ratio 13.3 (8-20); EGFR African American 132.7 (>60); EGFR Non-African American 109.6 (>60); Phosphorus 2.5 mg/dL (2.5-5.0)
[2019-05-30] MEDS: BuPROPion XL* 300 MG TAB.XL PO SCH (11:00)
[2019-05-30] MEDS: Gabapentin CAP(*) 300 MG PO SCH ×3 (11:00→22:10)
[2019-05-30] MEDS: CMCS: Omeprazole CAP (NF) 20 MG CAP.DR PO SCH ×2 (11:00→22:10)
[2019-05-30] MEDS: QUEtiapine TAB* 100 MG PO SCH ×2 (11:01→22:11)
[2019-05-30] MEDS: Cyanocobalamin INJ * 1,000 MCG/ML VIAL 1 ML VIAL IM SCH (11:01)
[2019-05-30] MEDS: Sucralfate SUSP 1 GM/10 ml 10 ML UDC PO SCH ×4 (11:08→22:09)
[2019-05-30] MEDS: Magnesium Oxide TAB* 400 MG PO SCH ×2 (11:13→22:10)
[2019-05-30] MEDS ORDERED: ALPRAZolam TAB* 0.5 MG PO PRN (12:35)
--- NOTE | 2019-05-30 12:50 | PN ---
Subjective Date of Service: 05/30/19 Interval History: patient seen today, tolerating her TPN. She reports improvement in her neck pain. Xray of neck did not reveal any acute cervical pathology. Afebrile. ID input appreciated. I did contact anesthesia and will proceed with LP today. Xanax prn 30 min before procedure ordered. Past Medical History: Unchanged from Admission Objective Active Medications: Acetaminophen (Tylenol Tab*) 650 mg PO Q4H PRN PRN Reason: MILD PAIN or TEMP > 100.4 Last Admin: 05/29/19 11:52 Dose: 650 mg Alprazolam (Xanax Tab*) 0.5 mg PO ONCE PRN PRN Reason: AGITATION/ANXIETY Bupropion HCl (Bupropion Xl*) 300 mg PO DAILY [facility] Last Admin: 05/30/19 11:00 Dose: 300 mg Cyanocobalamin (Vitamin B12 Inj *) 1,000 mcg IM DAILY [facility] Stop: 06/01/19 11:59 Last Admin: 05/30/19 11:01 Dose: 1,000 mcg Diphenhydramine HCl (Benadryl Po*) 25 mg PO BEDTIME PRN PRN Reason: INSOMNIA Gabapentin (Neurontin Cap(*)) 300 mg PO TID [facility] Last Admin: 05/30/19 11:00 Dose: 300 mg Heparin Sodium (Porcine) (Heparin Flush Picc/Ml/Cvc(*)) 1 - 3 ml FLUSH 0600, 1800 [facility]; Protocol Last Admin: 05/30/19 08:22 Dose: 1 ml Cefepime HCl (Maxipime 1 Gm In Dextrose Duplex (*)) 1 gm in 50 mls @ 100 mls/ hr IV Q12H [facility] Last Admin: 05/30/19 01:16 Dose: 100 mls/hr Vancomycin HCl 750 mg/ Sodium (Chloride) 250 mls @ 166.667 mls/hr IVPB 0600, 1400,2200 [facility] Last Admin: 05/30/19 04:50 Dose: 166.667 mls/hr Dextrose 500 ml/ Amino Acids 850 ml/ Sterile Water 150 ml/Fat Emulsion Intravenous 250 ml/ Sodium Chloride 75 meq/Potassium Chloride 25 meq/Potassium Phosphate 5 mmole/Calcium Gluconate 15 meq/Magnesium Sulfate 20 meq/ Multivitamins 10 ml/ Trace Metals 1 ml/ Potassium Acetate 25 meq/ Nutrition ( Parenteral ) 1,843.6008 mls @ 76.817 mls/hr CENTR 1700 [facility]; Protocol Last Admin: 05/29/19 17:34 Dose: 76.817 mls/hr Dextrose 500 ml/ Amino Acids 850 ml/ Sterile Water 150 ml/Fat Emulsion Intravenous 250 ml/ Sodium Chloride 75 meq/Potassium Chloride 25 meq/Potassium Phosphate 10 mmole/Calcium Gluconate 15 meq/Magnesium Sulfate 20 meq/ Multivitamins 10 ml/ Trace Metals 1 ml/ Potassium Acetate 25 meq/ Nutrition ( Parenteral ) 1,845.2674 mls @ 76.817 mls/hr CENTR 1700 [facility]; Protocol Levothyroxine Sodium (Synthroid Tab*) 25 mcg PO DAILY@0600 [facility] Last Admin: 05/30/19 04:49 Dose: 25 mcg Magnesium Oxide (Magox 400 Tab*) 800 mg PO BID [facility] Last Admin: 05/30/19 11:13 Dose: 800 mg Midodrine (Midodrine) 5 mg PO BID [facility]; Protocol Last Admin: 05/30/19 11:00 Dose: 5 mg Omeprazole (Prilosec Cap* (Nf)) 40 mg PO BID [facility] Last Admin: 05/30/19 11:00 Dose: 40 mg Ondansetron HCl (Zofran Inj*) 4 mg IV Q8H PRN PRN Reason: NAUSEA Last Admin: 05/29/19 11:52 Dose: 4 mg Oxycodone HCl (Roxycodone Tab*) 5 mg PO Q8H PRN PRN Reason: PAIN - SEVERE Last Admin: 05/30/19 04:49 Dose: 5 mg Pharmacy Consult (Vancomycin Per Pharmacy*) 1 note FOLLOW UP .VANC PER PHARMACY [facility]; Protocol Pharmacy Profile Note (Vancomycin Trough Check) 1 note FOLLOW UP 0530 ONE Stop: 05/31/19 05:31 Quetiapine Fumarate (Seroquel Tab*) 100 mg PO BID [facility] Last Admin: 05/30/19 11:01 Dose: 100 mg Sucralfate (Sucralfate Susp) 1 gm PO ACHS [facility] Last Admin: 05/30/19 11:09 Dose: 1 gm Zolpidem Tartrate (Ambien Tab*) 5 mg PO BEDTIME PRN PRN Reason: INSOMNIA Last Admin: 05/29/19 20:11 Dose: 5 mg Vital Signs - 8 hr 05/30/19 05/30/19 05/30/19 04:49 06:49 07:35 Temperature 98.1 F Pulse Rate 76 Respiratory 18 20 14 Rate Blood Pressure 100/70 (mmHg) O2 Sat by Pulse 99 Oximetry 05/30/19 11:00 Temperature Pulse Rate Respiratory 16 Rate Blood Pressure (mmHg) O2 Sat by Pulse Oximetry Oxygen Devices in Use Now: None Appearance: awake, alert no distress. pale Eyes: No Scleral Icterus, - - EOMI Ears/Nose/Mouth/Throat: Mucous Membranes Moist, - - partially edentulous Neck: NL Appearance and Movements; NL JVP, Trachea Midline Respiratory: Symmetrical Chest Expansion and Respiratory Effort, Clear to Auscultation Cardiovascular: NL Sounds; No Murmurs; No JVD, - - +1 edema Abdominal: NL Sounds; No Tenderness; No Distention Skin: No Rash or Ulcers Neurological: Alert and Oriented x 3 - Nutrition: Malnutrition Diagnosis/Plan Malnutrition Assessment by Registered Dietitian: Malnutrition Assessment Clinical Characteristics Chronic,Severe Malnutrition Assessment: Previous Admission Criteria Met: Criteria Muscle Wasting - Clavicular muscles (severe) Inadequate Oral Intake - 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 - anticipate meeting <75% nutrient needs >1 mo (severe) Unintentional Weight Loss - Pt reports >400lb wt loss 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, endorsing unintentional wt loss x4 mos; current wt 120lb, UBW 170lb x4 mos ago - 29.4% loss x4 mos ( severe ) Current Admission Criteria Met: Muscle Wasting - Clavicular muscles (severe) Unintentional Weight Loss - Current wt 140lb, UBW 170lb x5 mos ago - 17.6% difference x5 mos ( severe) Malnutrition Assessment: Nutrient Delivery - Short-term PPN (Peripheral Interventions Base A) ordered w/ plans to reinitiate TPN ( Central Base A) following new PICC placement Labs - Will monitor labs closely in the setting of PPN/TPN GI Related - Recommend continuing pain mgmt PRN ; will monitor GI s/sx for development Malnutrition Assessment: Goals 1) Adequate parenteral infusion to replete lean body mass and support hydration status 2) Maintain fluid/electrolyte balance w/ adequate parenteral infusion 3) Maintain glycemic control w/ adequate parenteral infusion w/o s/sx hypo-/ hyperglycemia Result Diagrams: 05/30/19 05:00 05/30/19 05:00 Assess/Plan/Problems-Billing Assessment: 43 y/o female readmitted to medical floor for fever, rule out sepsis with prolonged hospitalization related to malnutrition. She has knows PMH of bipolar, PTSD, DVT, recurrent SBO. Her initial presentation to the ER dates back to 04/15/19 for abd pain, N/V and inability to tolerate PO intake found to have ulcer at stomach anastomosis, possible stricture at anastomosis, severe protein-calorie malnutrition was on TPN for total course of 8 weeks followed by EGD at a tertiary care center but on 05/25/19 staff noted pink liquid in her picc line and turned out the patient self injected benadryl into her picc line followed by fever, hence transferred to acute bed status for fever rule out sepsis. - Patient Problems (1) Fever Current Visit: No Status: Acute Code(s): R50.9 - FEVER, UNSPECIFIED SNOMED Code(s): 419939779 Comment: - Given her low WBC's , fever 102.9 on 05/25/19, tacycardia - she was place in acute bed status pending her final cultures - she had neck pain and stiffness that started on Saturday05/22/19 and followed by fever/sepsis on 05/25/19. She report it has improved since she has been on atibiotics. - ID consulted and at this time recommended LP puncture. Anethesia called for LP today. - I will maintain her on empirically abc for meningitis pending her LP results. - Continue vancomycin day # 5 and cefepime day # 5. <55 y/o would not require listeria coverage - patient did have a PICC line - blood culture was taken from the PICC is neg - (2) Anemia Current Visit: No Status: Acute Code(s): D64.9 - ANEMIA, UNSPECIFIED SNOMED Code(s): 460634650 Comment: - Mixed etiology secondary to AOCD, and secondary to malnutrition - Continue omeprazole - Hgb is 8.5 05/28/19. s/p one unit. - Hgb drifting down again. monitor daily and transfuse prn - Added B12 injections - Hematology consult noted and appreciated. (3) Chronic malnutrition Current Visit: No Status: Acute Code(s): E46 - UNSPECIFIED PROTEIN-CALORIE MALNUTRITION SNOMED Code(s): 8086029 Comment: - Chronic, severe - Crruently on clear liquid due to severity of ulceration and GI recommendations - Resumed TPN on 05/28/19. Picc line placed - Appreciate input from Dietary and Pharmacy - Most recent notes from GI Dr. Dawkins dated 05/13/19 reviewed recommended 90 days TPN from 04/29/19 (that brings target date for TPN completion toward )! - Most recent note from surgery [facility] & Dr. Lyman attending, reviewed and recommended concur with GI input. - Therefore, I would recommend that once the patient is back on swing bed status, that effort should be made to initiate referral to GI @ [facility] as recommended by our GI while on TPN to ensure that patient get to be seen and evaluated before the completion of TPN and set up date for the EGD/dialation to be done sometime in july near completion of her TPN. - Assistance from our GI team to facilitate these outpatient appointment and acceptance by GI attending at [facility] will be greatly appreciated. - Also will need to discuss with our piano case maker to facilitate transport and appointment to GI outpatient at [facility] once this has been secured. (Transfer from swing bed to office visit...should and can be done, but require clerical warehouse worker corrdinations) (4) Gastrojejunal ulcer Current Visit: No Status: Acute Code(s): K28.9 - GASTROJEJUNAL ULCER, UNSP ACUTE OR CHR, W/O HEMOR OR PERF SNOMED Code(s): 34861423 Comment: - Multiple recent hospitalizations - EGD on 04/29/19 showing severe ulceration at anastomosis; unable to pass EGD scope to evaluate - Appreciate GI consult; recommends clear liquids, PPI, no NSAIDS - Appreciate Surgery consult; no surgery at this time, agrees with NPO and TPN - Recommended f/u at [facility] with GI as outpatient for repeat EGD in 6-8 weeks ( from 04/29/19) - Continue PPN/TPN until symptoms nakul and is able to tolerate adequate oral intake. - Outpatient TPN not an option per Case Management as the patient does not have a home to go to and limited motivation for independent medical care; home TPN not an option per Medicare - Continue Zofran, omeprazole, Carafate (5) History of DVT (deep vein thrombosis) Current Visit: No Status: Acute Code(s): Z86.718 - PERSONAL HISTORY OF OTHER VENOUS THROMBOSIS AND EMBOLISM SNOMED Code(s): 673874227 Comment: - History of DVT August 2018 - No residual clot (6) Hypomagnesemia Current Visit: No Status: Acute Code(s): E83.42 - HYPOMAGNESEMIA SNOMED Code(s): 162160691 Comment: - Repleting with her PPN/TPN - Continue mag oxide BID (7) Hypotension Current Visit: No Status: Acute Comment: - Likely due to malnutrition, anemia - Cortisol and TFT normal - Continue midodrine 5 mg bid (8) Hypothyroidism Current Visit: No Status: Acute Code(s): E03.9 - HYPOTHYROIDISM, UNSPECIFIED SNOMED Code(s): 97095380 Comment: - Continue levothyroxine 25 mcg daily (9) Leukopenia Current Visit: No Status: Acute Code(s): D72.819 - DECREASED WHITE BLOOD CELL COUNT, UNSPECIFIED SNOMED Code(s): 77132642 Comment: - Now pancytopenia - Chronic, likely due to malnutrition - B12 low normal I did start her on B12 shots. start PO supplement on 06/02/19 - Heme/Onc consult input appreciated (10) Thrombocytopenia Current Visit: No Status: Acute Code(s): D69.6 - THROMBOCYTOPENIA, UNSPECIFIED SNOMED Code(s): 653463184 Comment: - Now pancytopenia - Chronic, likely due to malnutrition - B12 low normal I did start her on B12 shots - Heme/Onc consult input appreciated (11) Bipolar disorder Current Visit: No Status: Acute Code(s): F31.9 - BIPOLAR DISORDER, UNSPECIFIED SNOMED Code(s): 15581828 Comment: - Continue bupropion 300 mg daily; Seroquel 100 mg bid, hydroxyzine prn - given her recent self injection of benadryl into her picc line we did call [facility] to evaluate the patient given the risk of self harm. she was cleared from 1:1 (12) DVT prophylaxis Current Visit: No Status: Acute Code(s): Z29.9 - ENCOUNTER FOR PROPHYLACTIC MEASURES, UNSPECIFIED SNOMED Code(s): 650196209 Comment: - SCD due to thrombocytopenia
[2019-05-30] MEDS ORDERED: TPN* 24 HR with Dextrose 50% Water* 500 ML, Amino Acid Infusion 10%* 850 ML, Sterile Wa... CENTR SCH ×13 (17:00)
[2019-05-30] MEDS: TPN* 24 HR with Dextrose 50% Water* 500 ML, Amino Acid Infusion 10%* 850 ML, Sterile Wa... CENTR SCH ×13 (17:57)
[2019-05-30] MEDS: Zolpidem TAB* 5 MG PO PRN (21:27)
[2019-05-31] LABS: Body Fluid Source Cerebral Spinal
[2019-05-31 00:21] LABS: CSF Glucose 67 mg/dL (40-70)
[2019-05-31] MEDS: Cefepime 1 GM in Dextrose(*) 1 GM/50 ML BAG IV SCH ×2 (01:31→12:21)
[2019-05-31] MEDS: Acetaminophen TAB* 325 MG PO PRN (05:09)
[2019-05-31] MEDS: Levothyroxine TAB* 25 MCG TAB PO SCH (05:27)
[2019-05-31] MEDS ORDERED: Vancomycin Trough Check NOTE FOLLOW UP ONE (05:30)
[2019-05-31 06:15] LABS: EGFR African American 143.6 (>60); EGFR Non-African American 118.7 (>60); Vancomycin Trough 19.2 mcg/mL
[2019-05-31 06:22] LABS: INR 1.1 (0.82-1.09)
[2019-05-31] MEDS: Vancomycin(*) 750 MG in NS 0.9% 250 ML* 250 ML IVPB SCH (06:30)
[2019-05-31 08:00] LABS: Calcium 8.2 mg/dL (8.6-10.3); Magnesium 1.5 mg/dL (1.9-2.7); Potassium 3.9 mmol/L (3.5-5.0)
[2019-05-31] MEDS ORDERED: oxyCODONE TAB* 5 MG TAB PO PRN (08:00)
[2019-05-31 08:06] LABS: BUN/Creatinine Ratio 18.5 (8-20); EGFR African American 149.8 (>60); EGFR Non-African American 123.8 (>60); Phosphorus 2.7 mg/dL (2.5-5.0)
[2019-05-31] MEDS ORDERED: Magnesium Sulfate 2 GM IV* 2 GM/50 ML BAG IVPB ONE (08:21)
[2019-05-31] MEDS: Gabapentin CAP(*) 300 MG PO SCH ×2 (09:34→12:38)
[2019-05-31] MEDS: QUEtiapine TAB* 100 MG PO SCH (09:34)
[2019-05-31] MEDS: Sucralfate SUSP 1 GM/10 ml 10 ML UDC PO SCH ×3 (09:34→17:13)
[2019-05-31] MEDS: BuPROPion XL* 300 MG TAB.XL PO SCH (09:35)
[2019-05-31] MEDS: CMCS: Omeprazole CAP (NF) 20 MG CAP.DR PO SCH (09:35)
[2019-05-31] MEDS: Magnesium Oxide TAB* 400 MG PO SCH (09:35)
[2019-05-31] MEDS: Cyanocobalamin INJ * 1,000 MCG/ML VIAL 1 ML VIAL IM SCH (09:51)
[2019-05-31 10:26] LABS: INR 1.08 (0.82-1.09)
--- NOTE | 2019-05-31 12:17 | PN ---
Subjective Date of Service: 05/31/19 Interval History: patient seen today. s/p LP yesterday. Cell count appears to be normal. 0 WBC and normal protein and glucose. (However LP was performed after being 6 days on abx)! She feels better her neck pain and rigidity improved. No nausea. appetite improving and discussed briefly with GI (Dr. Dawkins) and she did not oppose to advance to full liquid at comfort level. If any discomfort to revert back to clear liquid. Past Medical History: Unchanged from Admission Objective Active Medications: Acetaminophen (Tylenol Tab*) 650 mg PO Q4H PRN PRN Reason: MILD PAIN or TEMP > 100.4 Last Admin: 05/31/19 05:09 Dose: 650 mg Alprazolam (Xanax Tab*) 0.5 mg PO ONCE PRN PRN Reason: AGITATION/ANXIETY Last Admin: 05/30/19 22:35 Dose: 0.5 mg Bupropion HCl (Bupropion Xl*) 300 mg PO DAILY [facility] Last Admin: 05/31/19 09:35 Dose: 300 mg Cyanocobalamin (Vitamin B12 Inj *) 1,000 mcg IM DAILY [facility] Stop: 06/01/19 11:59 Last Admin: 05/31/19 09:51 Dose: 1,000 mcg Cyanocobalamin (Vitamin B12 Tab*) 1,000 mcg PO DAILY [facility] Diphenhydramine HCl (Benadryl Po*) 25 mg PO BEDTIME PRN PRN Reason: INSOMNIA Gabapentin (Neurontin Cap(*)) 300 mg PO TID [facility] Last Admin: 05/31/19 09:34 Dose: 300 mg Heparin Sodium (Porcine) (Heparin Flush Picc/Ml/Cvc(*)) 1 - 3 ml FLUSH 0600, 1800 [facility]; Protocol Last Admin: 05/31/19 05:27 Dose: 2 ml Cefepime HCl (Maxipime 1 Gm In Dextrose Duplex (*)) 1 gm in 50 mls @ 100 mls/ hr IV Q12H [facility] Last Admin: 05/31/19 01:31 Dose: 100 mls/hr Dextrose 500 ml/ Amino Acids 850 ml/ Sterile Water 150 ml/Fat Emulsion Intravenous 250 ml/ Sodium Chloride 75 meq/Potassium Chloride 25 meq/Potassium Phosphate 10 mmole/Calcium Gluconate 15 meq/Magnesium Sulfate 20 meq/ Multivitamins 10 ml/ Trace Metals 1 ml/ Potassium Acetate 25 meq/ Nutrition ( Parenteral ) 1,845.2674 mls @ 76.817 mls/hr [facility]; Protocol Stop: 05/31/19 16:59 Last Admin: 05/30/19 17:31 Dose: 76.817 mls/hr Vancomycin HCl 750 mg/ Sodium (Chloride) 250 mls @ 166.667 mls/hr IVPB Q12H [facility] Dextrose 500 ml/ Amino Acids 850 ml/ Sterile Water 150 ml/Fat Emulsion Intravenous 250 ml/ Sodium Chloride 75 meq/Potassium Chloride 25 meq/Potassium Phosphate 10 mmole/Calcium Gluconate 15 meq/Magnesium Sulfate 30 meq/ Multivitamins 10 ml/ Trace Metals 1 ml/ Potassium Acetate 25 meq/ Nutrition ( Parenteral ) 1,847.7304 mls @ 76.989 mls/hr [facility]; Protocol Levothyroxine Sodium (Synthroid Tab*) 25 mcg PO DAILY@0600 [facility] Last Admin: 05/31/19 05:27 Dose: 25 mcg Magnesium Oxide (Magox 400 Tab*) 800 mg PO BID [facility] Last Admin: 05/31/19 09:35 Dose: 800 mg Midodrine (Midodrine) 5 mg PO BID [facility]; Protocol Last Admin: 05/31/19 09:35 Dose: 5 mg Omeprazole (Prilosec Cap* (Nf)) 40 mg PO BID [facility] Last Admin: 05/31/19 09:35 Dose: 40 mg Ondansetron HCl (Zofran Inj*) 4 mg IV Q8H PRN PRN Reason: NAUSEA Last Admin: 05/29/19 11:52 Dose: 4 mg Oxycodone HCl (Roxycodone Tab*) 2.5 mg PO Q8H PRN PRN Reason: PAIN - SEVERE Last Admin: 05/31/19 09:35 Dose: 2.5 mg Pharmacy Consult (Vancomycin Per Pharmacy*) 1 note FOLLOW UP .VANC PER PHARMACY [facility]; Protocol Pharmacy Profile Note (Vancomycin Trough Check) 1 note FOLLOW UP ONCE ONE Stop: 06/02/19 05:31 Quetiapine Fumarate (Seroquel Tab*) 100 mg PO BID [facility] Last Admin: 05/31/19 09:34 Dose: 100 mg Sucralfate (Sucralfate Susp) 1 gm PO ACHS [facility] Last Admin: 05/31/19 09:34 Dose: 1 gm Zolpidem Tartrate (Ambien Tab*) 5 mg PO BEDTIME PRN PRN Reason: INSOMNIA Last Admin: 05/30/19 21:27 Dose: 5 mg Vital Signs - 8 hr 05/31/19 05/31/19 05/31/19 08:17 09:34 09:35 Temperature 97.3 F Pulse Rate 94 Respiratory 18 18 18 Rate Blood Pressure 100/69 (mmHg) O2 Sat by Pulse 99 Oximetry Oxygen Devices in Use Now: None Appearance: awake alert. no distress. better affect Eyes: No Scleral Icterus Ears/Nose/Mouth/Throat: NL Teeth, Lips, Gums, Mucous Membranes Moist Neck: NL Appearance and Movements; NL JVP, Trachea Midline Respiratory: Symmetrical Chest Expansion and Respiratory Effort, Clear to Auscultation Cardiovascular: NL Sounds; No Murmurs; No JVD, No Edema Abdominal: NL Sounds; No Tenderness; No Distention Extremities: - - trace edema Neurological: Alert and Oriented x 3, NL Muscle Strength and Tone - Nutrition: Malnutrition Diagnosis/Plan Malnutrition Assessment by Registered Dietitian: Malnutrition Assessment Clinical Characteristics Chronic,Severe Malnutrition Assessment: Previous Admission Criteria Met: Criteria Muscle Wasting - Clavicular muscles (severe) Inadequate Oral Intake - 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 - anticipate meeting <75% nutrient needs >1 mo (severe) Unintentional Weight Loss - Pt reports >400lb wt loss 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, endorsing unintentional wt loss x4 mos; current wt 120lb, UBW 170lb x4 mos ago - 29.4% loss x4 mos ( severe ) Current Admission Criteria Met: Muscle Wasting - Clavicular muscles (severe) Unintentional Weight Loss - Current wt 140lb, UBW 170lb x5 mos ago - 17.6% difference x5 mos ( severe) Malnutrition Assessment: Nutrient Delivery - Short-term PPN (Peripheral Interventions Base A) ordered w/ plans to reinitiate TPN ( Central Base A) following new PICC placement Labs - Will monitor labs closely in the setting of PPN/TPN GI Related - Recommend continuing pain mgmt PRN ; will monitor GI s/sx for development Malnutrition Assessment: Goals 1) Adequate parenteral infusion to replete lean body mass and support hydration status 2) Maintain fluid/electrolyte balance w/ adequate parenteral infusion 3) Maintain glycemic control w/ adequate parenteral infusion w/o s/sx hypo-/ hyperglycemia Result Diagrams: 05/30/19 05:00 05/31/19 07:00 Microbiology and Other Data: Microbiology 05/30/19 23:30 CSF Gram Stain (Tube 3) - Final Cerebral Spinal Fluid Assess/Plan/Problems-Billing Assessment: 43 y/o female readmitted to medical floor for fever, rule out sepsis with prolonged hospitalization related to malnutrition. She has knows PMH of bipolar, PTSD, DVT, recurrent SBO. Her initial presentation to the ER dates back to 04/15/19 for abd pain, N/V and inability to tolerate PO intake found to have ulcer at stomach anastomosis, possible stricture at anastomosis, severe protein-calorie malnutrition was on TPN for total course of 8 weeks followed by EGD at a tertiary care center but on 05/25/19 staff noted pink liquid in her picc line and turned out the patient self injected benadryl into her picc line followed by fever, hence transferred to acute bed status for fever rule out sepsis. - Patient Problems (1) Fever Current Visit: No Status: Acute Code(s): R50.9 - FEVER, UNSPECIFIED SNOMED Code(s): 560253932 Comment: - Given her low WBC's, fever 102.9 on 05/25/19, tacycardia - she was place in acute bed status pending her final cultures. - She also had neck pain and stiffness that started on Saturday05/22/19 and followed by fever/sepsis on 05/25/19. She report it has improved since she has been on atibiotics. - ID consulted and at this time recommended LP puncture. Anethesia called for LP today. LP done 05/30/19 and her cell diferrential and Protein/Glucose normal. However LP was performed after being on Abx 5 days. - I will maintain her on empirically abc for meningitis pending re-evaluation ID in am - Continue vancomycin day # 6 and cefepime day # 6. <55 y/o would not require listeria coverage - patient did have a PICC line - blood culture was taken from the PICC is neg - (2) Anemia Current Visit: No Status: Acute Code(s): D64.9 - ANEMIA, UNSPECIFIED SNOMED Code(s): 738692474 Comment: - Mixed etiology secondary to AOCD, and secondary to malnutrition - Continue omeprazole - Hgb is 8.5 05/28/19. s/p one unit. - Hgb drifting down again. monitor and transfuse prn - Added B12 injections --> to PO B12 supplements - Hematology consult noted and appreciated. (3) Chronic malnutrition Current Visit: No Status: Acute Code(s): E46 - UNSPECIFIED PROTEIN-CALORIE MALNUTRITION SNOMED Code(s): 4652301 Comment: - Chronic, severe - Crruently on clear liquid due to severity of ulceration and GI recommendations - Resumed TPN on 05/28/19. Picc line placed. Advance to full liquid based on comfort level - Appreciate input from Dietary and Pharmacy - Most recent notes from GI Dr. Dawkins dated 05/13/19 reviewed recommended 90 days TPN from 04/29/19 (that brings target date for TPN completion toward )! - Most recent note from surgery [facility] & Dr. Lyman attending, reviewed and recommendation did concur with GI input. - Therefore, I would recommend that once the patient is back on swing bed status, that efforts should be made to initiate referral to GI @ [facility] as recommended by our GI while on TPN. This ensure that patient get to be seen and evaluated before the completion of TPN and set up date for the EGD/ dialation to be done sometime in july near completion of her TPN. - Dr. Dawkins will intiate referral and will help facilitate these outpatient appointment and acceptance by GI attending at [facility] which is greatly appreciated. - Also will need to discuss with our major case detective to facilitate transport/ documentations and appointment to GI outpatient at [facility] once this has been secured. (4) Gastrojejunal ulcer Current Visit: No Status: Acute Code(s): K28.9 - GASTROJEJUNAL ULCER, UNSP ACUTE OR CHR, W/O HEMOR OR PERF SNOMED Code(s): 00112274 Comment: - Multiple recent hospitalizations - EGD on 04/29/19 showing severe ulceration at anastomosis; unable to pass EGD scope to evaluate - Appreciate GI consult; recommends clear liquids, PPI, no NSAIDS - Appreciate Surgery consult; no surgery at this time, agrees with NPO and TPN - Recommended f/u at [facility] with GI as outpatient for repeat EGD in 90 days ( from 04/29/19). - Continue PPN/TPN until symptoms nakul and is able to tolerate adequate oral intake. - Outpatient TPN not an option per Case Management as the patient does not have a home to go to and limited motivation for independent medical care; home TPN not an option per Medicare - Continue Zofran, omeprazole, Carafate (5) Chronic pain disorder Current Visit: Yes Status: Acute Code(s): G89.4 - CHRONIC PAIN SYNDROME SNOMED Code(s): 262162314 Comment: - I had discussion with the patient and she agreed to try to come off her opiate slow taper - Started by tapering from oxycodone 5 Q6hr to 5 mg Q8hr. now she is at 2.5 mg Q8hrs will consider taper on average 3-5 days with next taper 2.5 mg Q12 until she is completly off (6) History of DVT (deep vein thrombosis) Current Visit: No Status: Acute Code(s): Z86.718 - PERSONAL HISTORY OF OTHER VENOUS THROMBOSIS AND EMBOLISM SNOMED Code(s): 252308967 Comment: - History of DVT August 2018 - No residual clot (7) Hypomagnesemia Current Visit: No Status: Acute Code(s): E83.42 - HYPOMAGNESEMIA SNOMED Code(s): 406040658 Comment: - Repleting with her PPN/TPN. Increased to 30 meq via TPN. - Continue mag oxide 800 mg BID, ajdust accoringly to her labs. s/p 2 gm today given her level of 1.5 (8) Hypotension Current Visit: No Status: Acute Comment: - Likely due to malnutrition, anemia - Cortisol and TFT normal - Continue midodrine 5 mg bid (9) Hypothyroidism Current Visit: No Status: Acute Code(s): E03.9 - HYPOTHYROIDISM, UNSPECIFIED SNOMED Code(s): 61888450 Comment: - Continue levothyroxine 25 mcg daily (10) Leukopenia Current Visit: No Status: Acute Code(s): D72.819 - DECREASED WHITE BLOOD CELL COUNT, UNSPECIFIED SNOMED Code(s): 72949028 Comment: - Now pancytopenia - improving since TPN started and B12 added - Chronic, likely due to malnutrition - B12 low normal I did start her on B12 shots. start PO supplement on 06/02/19 - Heme/Onc consult input appreciated (11) Thrombocytopenia Current Visit: No Status: Acute Code(s): D69.6 - THROMBOCYTOPENIA, UNSPECIFIED SNOMED Code(s): 973084811 Comment: - Now pancytopenia - improved since B12 supplementation added - Chronic, likely due to malnutrition - B12 low normal I did start her on B12 shots - Heme/Onc consult input appreciated (12) Bipolar disorder Current Visit: No Status: Acute Code(s): F31.9 - BIPOLAR DISORDER, UNSPECIFIED SNOMED Code(s): 23602572 Comment: - Continue bupropion 300 mg daily; Seroquel 100 mg bid, hydroxyzine prn - given her recent self injection of benadryl into her picc line we did call ps to evaluate the patient given the risk of self harm. she was cleared from 1:1 (13) DVT prophylaxis Current Visit: No Status: Acute Code(s): Z29.9 - ENCOUNTER FOR PROPHYLACTIC MEASURES, UNSPECIFIED SNOMED Code(s): 633255752 Comment: - SCD due to thrombocytopenia
[2019-05-31] MEDS ORDERED: TPN* 24 HR with Dextrose 50% Water* 500 ML, Amino Acid Infusion 10%* 850 ML, Sterile Wa... CENTR SCH ×13 (17:00)
[2019-05-31] MEDS ORDERED: Vancomycin(*) 750 MG in NS 0.9% 250 ML* 250 ML IVPB SCH (18:00)
[2019-05-31 18:01] VITALS: BP 108/65
--- NOTE | 2019-05-31 22:35 | DS ---
DISCHARGE SUMMARY/HISTORY AND PHYSICAL: DATE OF ADMISSION: From swing to acute, 05/26/19 DATE OF DISCHARGE: From acute to swing, 05/31/19 This is a discharge summary for her acute bed status and also history and physical for the new accoun t under swing bed status. FINAL DISCHARGE DIAGNOSES: 1. Fever, suspicious for meningitis, currently on day #6 of vancomycin and cefepime. 2. Anemia, mixed etiology related to malnutrition and anemia of chronic disease. 3. Chronic malnutrition due to gastric outlet obstruction and ulceration, on TPN. 4. Gastrojejunal ulcer. 5. Chronic pain disorders. 6. History of deep venous thrombosis. 7. Electrolyte disturbance with hypomagnesemia. 8. Hypotension due to malnutrition and anemia. 9. Hypothyroidism. 10. Leukopenia due to B12 deficiency of malnutrition. 11. Thrombocytopenia due to B12 deficiency and malnutrition. 12. Bipolar disorder. HOSPITAL COURSE: The patient was under swing bed status receiving TPN for her nutritional support du e to gastrojejunal ulcer. Then, it was noted on 05/26/19 to have a fever as high as 102.9 with tachy cardia. She was transferred to an acute bed status for fever, rule out sepsis. She underwent blood culture, urine culture, none of them were yielding. She was started on vancomycin and cefepime. Blo od cultures remained negative and urine cultures no growth and the PICC line was discontinued, had it s tip cultured, which was negative as well. She was transitioned from TPN to PPN for at least 72 hollie rs while waiting for the cultures and then, she had her PICC line placed on 05/29/19 and then TPN was resumed on 05/29/19. The patient responded appropriately to the antibiotic and she has been afebril e since 05/27/19. On further questioning, she was stating that she was having some neck pain and nec k stiffness during that time period. Therefore, I was concerned that she may have had possible menin gitis as a source of the fever. I discussed with ID and they recommended to obtain cervical spine, w hich was done and it was fairly unremarkable in term of any cervical pathology. The vertebral bodies were normal in height. The canal appears to be intact. Therefore, after that, they recommended to proceed with lumbar puncture. I did ask Anesthesia who kindly saw and evaluated the patient and she had a lumbar puncture on 05/30/19 and they got colorless, 0 wbc; 0 rbc; CSF glucose was 67, normal; C SF protein was 19, which was normal. Therefore, at this time, it is hard to determine whether or not she did have meningitis or not as she was on antibiotics for 5 to 6 days before the LP was performed and today is day #6. I elected to continue her IV antibiotics for today and will have the Infectiou s Disease followup for further input tomorrow, which will be day #7 and whether or not to complete th e total of 10 days' course remain to be determined. At this time, the patient is back to baseline. She is on the TPN and she seems to tolerate it well. Electrolytes being supplemented accordingly and I will place her on swing bed status. PHYSICAL EXAMINATION: Vital Signs: Temperature 97.3, pulse is 94, sat 99%, blood pressure 100/69. General: She is awake, alert, oriented, pleasant, in no distress, follows command. Head and Neck: Normocephalic. Neck is supple. No rigidity, no stiffness. Lungs: Clear to auscultation. Cardiova scular: S1, S2. Regular rate and rhythm. No murmur. Abdomen: Positive bowel sounds. Soft, nonten jody, nondistended. Extremities: Trace ankle edema. PAST MEDICAL HISTORY: 1. Bipolar. 2. Chronic malnutrition. 3. Gastrojejunal ulcer. 4. Maulik's thyroiditis and hypothyroidism. 5. History of GI bleed. 6. History of provoked DVT. 7. Malnutrition. 8. Pancytopenia. PAST SURGICAL HISTORY: 1. SMA repair. 2. Gastric bypass. 3. Appendectomy. 4. Hysterectomy. 5. Tubal ligation. 6. Cholecystectomy. CURRENT INPATIENT MEDICATIONS: 1. Tylenol 650 p.r.n. 2. Bupropion 300 mg daily. 3. Cefepime 1 g IV q.12, day #6. 4. B12 1000 mcg p.o. daily. 5. Diphenhydramine 25 mg at bedtime p.r.n. 6. Neurontin 300 t.i.d. 7. Levothyroxine 25 mcg. 8. Mag oxide 800 mg b.i.d. 9. Midodrine 5 mg b.i.d. 10. TPN. 11. Omeprazole 40 b.i.d. 12. Zofran p.r.n. 13. Oxycodone 2.5 mg p.o. q.8 hours. 14. Vancomycin as per pharmacy, day #6. 15. Seroquel 100 b.i.d. 16. Carafate 1 g q.a.c. and h.s. 17. Ambien 5 mg at bedtime p.r.n. ALLERGIES: Allergic to ERYTHROMYCIN, REGLAN, NITROFURANTOIN, NSAIDS. FAMILY HISTORY: Significant for father with diabetes. Mother has tachycardia. SOCIAL HISTORY: Previously smoked, now she has been in the hospital over a month. Currently, homeles s. REVIEW OF SYSTEMS: As per HPI. IMPRESSION AND PLAN: 1. Her fever, she is status post 6 days of vanco and cefepime. Blood culture previous PICC line tip was negative. Follow up with ID to consult regarding finishing full treatment for possible meningit is despite negative lumbar puncture. It was done on day #6 of antibiotics. 2. Anemia. Continue omeprazole. Follow up p.r.n. 2 to 3 day CBC. Improved with B12 injection, now transitioned to oral B12. 3. Her chronic malnutrition, we will advance her diet to full liquid based on comfort level. Contin ue TPN daily. The patient to continue her TPN for 90 days as recommended by GI starting from 9, which bring us target around 07/30/19. I discussed with the case technician and GI, Dr. Dawkins, to facilitate a referral to the outpatient at [place]. Appointment once made and referral was made t o be accommodated by transport and then pending the GI evaluation at [place], to set a date for her en doscopy and dilation. 4. Her gastrojejunal ulcer as above. 5. For her chronic pain, I discussed with the patient slow taper and she agreed. Currently, she is d own to 2.5 q.8 hours as of 05/31/19 and this needs to be further tapered further every 3 to 5 days un til she is completely off. 6. History of deep venous thrombosis. No residual clot that was back in 2019. subcu for DVT p rophylaxis. 7. Hypomagnesemia, being replaced and supplemented by TPN peripheral as well IV and oral. 8. Hypotension. Her blood pressure seems to be soft in the 80s and 70s. She continues to be on mid odrine. 9. Hypothyroidism. Continue Levoxyl 25 mcg daily. 10. Leukopenia, resolved with B12, improving on nutritional supplementation. 11. Thrombocytopenia, improving with B12 supplementation. Hem/Onc consult note is appreciated. 12. Bipolar disorder. Continue bupropion, Seroquel 100 b.i.d., and hydroxyzine p.r.n., and given he r recent injection of Benadryl into her PICC line, we had Psych evaluate the patient who saw her, maday pérez, and cleared her from one-on-one and recommended Ambien to help her with the sleep in an effor t to avoid further self- injection of Benadryl. 13. For DVT prophylaxis, she is on SCD due to thrombocytopenia. Monitor platelet and possible consi jody resumption if her platelets has completely resolved. This is a discharge summary from acute to swing bed and also a history and physical for her admission to the swing bed status. [id number]/[facility] #: [id number]
[2019-06-02] MEDS ORDERED: Vancomycin Trough Check NOTE FOLLOW UP ONE (05:30)
[2019-06-02] MEDS ORDERED: Cyanocobalamin TAB* 500 MCG PO SCH (09:00)
== END 2019-05-31 17:49 | disposition swing bed (61) | DRG 97 ==
LOC: MED 13:40 → OBSVTOIN 05-27 11:00
PROVIDERS: ADMIT Internal Medicine; ATTEND Internal Medicine
PROC: 30233N1 Transfusion of Nonautologous Red Blood Cells into Peripheral Vein, Percutaneous Approach (ICD-10-PCS; 2019-05-27)
PROC: 05HY33Z Insertion of Infusion Device into Upper Vein, Percutaneous Approach (ICD-10-PCS; principal; 2019-05-28)
PROC: 3E0336Z Introduction of Nutritional Substance into Peripheral Vein, Percutaneous Approach (ICD-10-PCS; 2019-05-28)
PROC: 009U3ZX Drainage of Spinal Canal, Percutaneous Approach, Diagnostic (ICD-10-PCS; 2019-05-30)
DX: G03.9 Meningitis, unspecified (principal); E43 Unspecified severe protein-calorie malnutrition; K31.1 Adult hypertrophic pyloric stenosis; D61.818 Other pancytopenia; F68.10 Factitious disorder imposed on self, unspecified; K28.9 Gastrojejunal ulcer, unspecified as acute or chronic, without hemorrhage or perforation; E83.42 Hypomagnesemia; I95.9 Hypotension, unspecified; D72.819 Decreased white blood cell count, unspecified; E53.8 Deficiency of other specified B group vitamins; G89.29 Other chronic pain; E03.9 Hypothyroidism, unspecified; F43.10 Post-traumatic stress disorder, unspecified; R50.9 Fever, unspecified; M06.9 Rheumatoid arthritis, unspecified; D69.59 Other secondary thrombocytopenia; F31.9 Bipolar disorder, unspecified; M19.90 Unspecified osteoarthritis, unspecified site; E06.3 Autoimmune thyroiditis; F17.211 Nicotine dependence, cigarettes, in remission; Z68.22 Body mass index [BMI] 22.0-22.9, adult; Z86.718 Personal history of other venous thrombosis and embolism; Z98.84 Bariatric surgery status; Z88.6 Allergy status to analgesic agent; Z88.1 Allergy status to other antibiotic agents; Z88.8 Allergy status to other drugs, medicaments and biological substances; Z83.3 Family history of diabetes mellitus; Z59.0 Homelessness; Z79.899 Other long term (current) drug therapy; Z80.0 Family history of malignant neoplasm of digestive organs; Z81.1 Family history of alcohol abuse and dependence; Z81.8 Family history of other mental and behavioral disorders
CPT/HCPCS: 36415; 72040; 80048; 80053; 80202; 82465; 82565; 82607; 82728; 82746; 82945; 83540; 83550; 83735; 83921; 84100; 84134; 84157; 84478; 84520; 85025; 85045; 85060; 85610; 86038; 86431; 86706; 86803; 86850; 86900; 86901; 86922; 87070; 87205; 87340; 87389; 89051; 99223; A9270-GY; G0378; J0610; J0692; J2405; J3370; J3420; J3475; J3480; P9040

== ENCOUNTER 2019-05-31 17:48 | Inpatient (IN) | payer MEDICARE ==
[~2019-05-31 17:48] MED LIST: Vancomycin(*) 750 MG in NS 0.9% 250 ML* 250 ML IVPB SCH
[2019-05-31] MEDS ORDERED: diPHENhydraMINE PO* 25 MG PO PRN (18:02)
[2019-05-31] MEDS ORDERED: Vancomycin per Pharmacy* NOTE FOLLOW UP SCH (19:00)
[2019-05-31] MEDS: TPN* 24 HR with Dextrose 50% Water* 500 ML, Amino Acid Infusion 10%* 850 ML, Sterile Wa... CENTR SCH ×13 (19:25)
[2019-05-31] MEDS: Ondansetron INJ* 2 MG/ML VIAL IV PRN (20:27)
[2019-05-31] MEDS: Sucralfate SUSP 1 GM/10 ml 10 ML UDC PO SCH (20:27)
[2019-05-31] MEDS: Pantoprazole TAB * 40 MG TAB PO SCH (20:27)
[2019-05-31] MEDS: Gabapentin CAP(*) 300 MG PO SCH (20:27)
[2019-05-31] MEDS: oxyCODONE TAB* 5 MG TAB PO PRN (20:28)
[2019-05-31] MEDS: QUEtiapine TAB* 100 MG PO SCH (20:29)
[2019-05-31] MEDS: Zolpidem TAB* 5 MG PO PRN (20:29)
[2019-05-31] MEDS: Magnesium Oxide TAB* 400 MG PO SCH (20:29)
[2019-06-01] MEDS: Cefepime 1 GM in Dextrose(*) 1 GM/50 ML BAG IV SCH ×2 (00:28→14:00)
[2019-06-01] MEDS: Levothyroxine TAB* 25 MCG TAB PO SCH (05:44)
[2019-06-01] MEDS ORDERED: Vancomycin(*) 750 MG in NS 0.9% 250 ML* 250 ML IVPB SCH (06:00)
[2019-06-01 06:17] LABS: Hematocrit 24 % (35-47); Hemoglobin 7.7 g/dL (12.0-16.0); Mean Corpuscular HGB Conc 33 g/dL (31-36); Mean Corpuscular Hemoglobin 32 pg (27-31); Mean Corpuscular Volume 100 fL (80-97); Mean Platelet Volume 10.7 fL (7.4-10.4); Platelet Count 120 10^3/uL (150-450); Red Blood Count 2.37 10^6 /uL (3.70-4.87); Red Cell Distribution Width 18 % (10-15); White Blood Count 4.2 10^3/uL (3.5-10.8)
[2019-06-01 06:41] LABS: Calcium 8.1 mg/dL (8.6-10.3); Magnesium 1.7 mg/dL (1.9-2.7)
[2019-06-01 06:47] LABS: BUN/Creatinine Ratio 21.8 (8-20); EGFR African American 146.7 (>60); EGFR Non-African American 121.2 (>60); Phosphorus 3.3 mg/dL (2.5-5.0)
[2019-06-01] MEDS: Sucralfate SUSP 1 GM/10 ml 10 ML UDC PO SCH ×4 (07:47→22:00)
[2019-06-01 08:17] LABS: ABS Eosinophils 0.1 10^3/ul (0-0.6); ABS Monocytes 0.4 10^3/ul (0-0.8); ABS Neutrophils 2.6 10^3/ul (1.5-7.7); Eosinophil % 2.3 %; Lymphocyte % 24.4 %; Nucleated Red Blood Cells % 0.2
[2019-06-01] MEDS: Pantoprazole TAB * 40 MG TAB PO SCH ×2 (08:58→21:59)
[2019-06-01] MEDS: Gabapentin CAP(*) 300 MG PO SCH ×3 (08:58→21:57)
[2019-06-01] MEDS: BuPROPion XL* 300 MG TAB.XL PO SCH (08:58)
[2019-06-01] MEDS: Cyanocobalamin TAB* 500 MCG PO SCH (08:58)
[2019-06-01] MEDS: Magnesium Oxide TAB* 400 MG PO SCH ×2 (08:59→21:56)
[2019-06-01] MEDS: oxyCODONE TAB* 5 MG TAB PO PRN ×2 (08:59→17:00)
[2019-06-01] MEDS: QUEtiapine TAB* 100 MG PO SCH ×2 (08:59→21:58)
[2019-06-01] MEDS: Vancomycin(*) 750 MG in NS 0.9% 250 ML* 250 ML IVPB SCH ×2 (11:40→23:51)
--- NOTE | 2019-06-01 15:33 | PN ---
Hospitalist Progress Note Date of Service: 06/01/19 Patient readmitted to Swing status 05/31/[address] Keene. Clarified with GI, Dr. Zimmer today that patient requires only 6 weeks of TPN, not 90 days. Completion date would be 10 days from restarting TPN or June 09-. Plan to advance diet Q5 days until then. Currently on FLD, will plan GI/soft diet to begin on 06/05/19 at dinner. Patient will need outpatient follow up at [facility] to have dilatation procedure scheduled. Discussed with case management, plan is to discharge patient on June 10 to [facility] with outpatient follow up appointment made at [facility] for procedure. Will continue TPN until discharge.
[2019-06-01] MEDS: TPN* 24 HR with Dextrose 50% Water* 500 ML, Amino Acid Infusion 10%* 850 ML, Sterile Wa... CENTR SCH ×13 (17:01)
[2019-06-01] MEDS: Acetaminophen TAB* 325 MG PO PRN (21:57)
[2019-06-01] MEDS: Zolpidem TAB* 5 MG PO PRN (21:58)
[2019-06-02] MEDS: oxyCODONE TAB* 5 MG TAB PO PRN ×3 (01:14→19:58)
[2019-06-02] MEDS: Cefepime 1 GM in Dextrose(*) 1 GM/50 ML BAG IV SCH ×2 (02:00→11:44)
[2019-06-02] MEDS: Levothyroxine TAB* 25 MCG TAB PO SCH (05:10)
[2019-06-02] MEDS: Sucralfate SUSP 1 GM/10 ml 10 ML UDC PO SCH ×4 (05:10→19:47)
[2019-06-02] MEDS: Gabapentin CAP(*) 300 MG PO SCH ×3 (07:40→19:57)
[2019-06-02] MEDS: BuPROPion XL* 300 MG TAB.XL PO SCH (07:40)
[2019-06-02] MEDS: Pantoprazole TAB * 40 MG TAB PO SCH ×2 (07:40→19:45)
[2019-06-02] MEDS: Cyanocobalamin TAB* 500 MCG PO SCH (07:40)
[2019-06-02] MEDS: Magnesium Oxide TAB* 400 MG PO SCH ×2 (07:40→19:46)
[2019-06-02] MEDS: QUEtiapine TAB* 100 MG PO SCH ×2 (07:40→19:45)
[2019-06-02] MEDS: Vancomycin(*) 750 MG in NS 0.9% 250 ML* 250 ML IVPB SCH ×2 (10:18→23:09)
[2019-06-02] MEDS ORDERED: Alteplase (CATHFLO)* 2 MG VIAL IV ONE (12:30)
[2019-06-02 13:02] LABS: ABS Eosinophils 0.1 10^3/ul (0-0.6); ABS Lymphocytes 0.3 10^3/ul (1.0-4.8); ABS Monocytes 0.3 10^3/ul (0-0.8); ABS Neutrophils 3.5 10^3/ul (1.5-7.7); Eosinophil % 2.4 %; Hematocrit 25 % (35-47); Hemoglobin 8.3 g/dL (12.0-16.0); Lymphocyte % 7.5 %; Mean Corpuscular HGB Conc 34 g/dL (31-36); Mean Corpuscular Hemoglobin 33 pg (27-31); Mean Corpuscular Volume 99 fL (80-97); Mean Platelet Volume 10.5 fL (7.4-10.4); Platelet Count 126 10^3/uL (150-450); Red Blood Count 2.51 10^6 /uL (3.70-4.87); Red Cell Distribution Width 17 % (10-15); White Blood Count 4.2 10^3/uL (3.5-10.8)
[2019-06-02 13:30] LABS: Albumin 2.9 g/dL (3.2-5.2); Albumin/Globulin Ratio 1.1 (1-3); BUN/Creatinine Ratio 26.4 (8-20); Calcium 8.3 mg/dL (8.6-10.3); EGFR African American 153.1 (>60); EGFR Non-African American 126.5 (>60); Globulin 2.7 g/dL (2-4); Potassium 4.1 mmol/L (3.5-5.0); Total Bilirubin 0.4 mg/dL (0.2-1.0); Total Protein 5.6 g/dL (6.4-8.9)
[2019-06-02 14:44] LABS: Magnesium 1.8 mg/dL (1.9-2.7)
[2019-06-02] MEDS: TPN* 24 HR with Dextrose 50% Water* 500 ML, Amino Acid Infusion 10%* 850 ML, Sterile Wa... CENTR SCH ×13 (16:39)
[2019-06-02] MEDS: Zolpidem TAB* 5 MG PO PRN (19:45)
[2019-06-03] MEDS: Cefepime 1 GM in Dextrose(*) 1 GM/50 ML BAG IV SCH (01:03)
[2019-06-03] MEDS: Levothyroxine TAB* 25 MCG TAB PO SCH (06:08)
[2019-06-03] MEDS: Sucralfate SUSP 1 GM/10 ml 10 ML UDC PO SCH ×4 (06:09→20:42)
[2019-06-03 06:33] LABS: ABS Lymphocytes 0.4 10^3/ul (1.0-4.8); ABS Monocytes 0.2 10^3/ul (0-0.8); ABS Neutrophils 1.1 10^3/ul (1.5-7.7); Eosinophil % 2.8 %; Hematocrit 23 % (35-47); Hemoglobin 7.8 g/dL (12.0-16.0); Mean Corpuscular HGB Conc 33 g/dL (31-36); Mean Corpuscular Hemoglobin 33 pg (27-31); Mean Corpuscular Volume 98 fL (80-97); Mean Platelet Volume 10.7 fL (7.4-10.4); Platelet Count 113 10^3/uL (150-450); Red Blood Count 2.38 10^6 /uL (3.70-4.87); Red Cell Distribution Width 18 % (10-15); White Blood Count 1.8 10^3/uL (3.5-10.8)
[2019-06-03] MEDS: oxyCODONE TAB* 5 MG TAB PO PRN ×2 (06:38→16:38)
[2019-06-03 06:47] LABS: Albumin 2.7 g/dL (3.2-5.2); BUN/Creatinine Ratio 30.2 (8-20); Calcium 8.3 mg/dL (8.6-10.3); EGFR African American 153.1 (>60); EGFR Non-African American 126.5 (>60); Globulin 2.8 g/dL (2-4); Potassium 4.1 mmol/L (3.5-5.0); Total Bilirubin 0.3 mg/dL (0.2-1.0); Total Protein 5.5 g/dL (6.4-8.9)
[2019-06-03] MEDS: QUEtiapine TAB* 100 MG PO SCH ×2 (07:50→20:41)
[2019-06-03] MEDS: Gabapentin CAP(*) 300 MG PO SCH ×3 (07:50→20:41)
[2019-06-03] MEDS: Magnesium Oxide TAB* 400 MG PO SCH ×2 (07:50→20:40)
[2019-06-03] MEDS: Pantoprazole TAB * 40 MG TAB PO SCH ×2 (07:50→20:40)
[2019-06-03] MEDS: BuPROPion XL* 300 MG TAB.XL PO SCH (07:50)
[2019-06-03] MEDS: Cyanocobalamin TAB* 500 MCG PO SCH (07:50)
[2019-06-03] MEDS: Acetaminophen TAB* 325 MG PO PRN (07:59)
[2019-06-03] MEDS: Vancomycin(*) 750 MG in NS 0.9% 250 ML* 250 ML IVPB SCH (11:14)
[2019-06-03] MEDS ORDERED: Magnesium Sulfate 2 GM IV (Premix) IVPB ONE (12:00)
--- NOTE | 2019-06-03 12:17 | PN ---
Hospitalist Progress Note Date of Service: 06/03/19 Antibiotics discontinued, no s/s of active infection or sepsis. Drop in WBC count likely 2/2 vancomycin. Continue to follow daily labs.
[2019-06-03] MEDS: TPN* 24 HR with Dextrose 40% Water* 500 ML, Amino Acid Infusion 10%* 850 ML, Sterile Wa... CENT\\PICC SCH ×13 (16:38)
[2019-06-03] MEDS: Zolpidem TAB* 5 MG PO PRN (20:40)
[2019-06-04] MEDS: oxyCODONE TAB* 5 MG TAB PO PRN ×2 (04:37→16:32)
[2019-06-04] MEDS: Levothyroxine TAB* 25 MCG TAB PO SCH (04:37)
[2019-06-04 05:03] LABS: Hematocrit 25 % (35-47); Hemoglobin 8.2 g/dL (12.0-16.0); Mean Corpuscular HGB Conc 33 g/dL (31-36); Mean Corpuscular Hemoglobin 32 pg (27-31); Mean Corpuscular Volume 99 fL (80-97); Mean Platelet Volume 10.1 fL (7.4-10.4); Platelet Count 135 10^3/uL (150-450); Red Blood Count 2.52 10^6 /uL (3.70-4.87); Red Cell Distribution Width 17 % (10-15); White Blood Count 2.9 10^3/uL (3.5-10.8)
[2019-06-04] MEDS: Sucralfate SUSP 1 GM/10 ml 10 ML UDC PO SCH ×4 (05:16→19:57)
[2019-06-04 05:20] LABS: Albumin 2.9 g/dL (3.2-5.2); BUN/Creatinine Ratio 29.6 (8-20); Calcium 8.4 mg/dL (8.6-10.3); EGFR African American 149.8 (>60); EGFR Non-African American 123.8 (>60); Globulin 2.8 g/dL (2-4); Total Bilirubin 0.3 mg/dL (0.2-1.0); Total Protein 5.7 g/dL (6.4-8.9)
[2019-06-04 05:50] LABS: ABS Eosinophils 0.1 10^3/ul (0-0.6); ABS Lymphocytes 0.7 10^3/ul (1.0-4.8); ABS Monocytes 0.6 10^3/ul (0-0.8); ABS Neutrophils 1.4 10^3/ul (1.5-7.7); Eosinophil % 4.2 %; Lymphocyte % 25.1 %; Nucleated Red Blood Cells % 0.1
[2019-06-04] MEDS: Magnesium Oxide TAB* 400 MG PO SCH ×2 (09:45→19:57)
[2019-06-04] MEDS: Gabapentin CAP(*) 300 MG PO SCH ×3 (09:46→19:56)
[2019-06-04] MEDS: QUEtiapine TAB* 100 MG PO SCH ×2 (09:46→19:57)
[2019-06-04] MEDS: Cyanocobalamin TAB* 500 MCG PO SCH (09:46)
[2019-06-04] MEDS: Pantoprazole TAB * 40 MG TAB PO SCH ×2 (09:47→19:57)
[2019-06-04] MEDS: BuPROPion XL* 300 MG TAB.XL PO SCH (09:59)
[2019-06-04] MEDS ORDERED: Vancomycin Trough Check NOTE FOLLOW UP ONE (10:30)
[2019-06-04] MEDS: TPN* 24 HR with Dextrose 40% Water* 500 ML, Amino Acid Infusion 10%* 850 ML, Sterile Wa... CENT\\PICC SCH ×13 (18:10)
[2019-06-04] MEDS: Zolpidem TAB* 5 MG PO PRN (19:57)
[2019-06-05] MEDS: Levothyroxine TAB* 25 MCG TAB PO SCH (05:03)
[2019-06-05 05:23] LABS: Hematocrit 25 % (35-47); Hemoglobin 8.1 g/dL (12.0-16.0); Mean Corpuscular HGB Conc 32 g/dL (31-36); Mean Corpuscular Hemoglobin 31 pg (27-31); Mean Corpuscular Volume 98 fL (80-97); Mean Platelet Volume 9.7 fL (7.4-10.4); Platelet Count 165 10^3/uL (150-450); Red Blood Count 2.57 10^6 /uL (3.70-4.87); Red Cell Distribution Width 17 % (10-15); White Blood Count 3.6 10^3/uL (3.5-10.8)
[2019-06-05 05:41] LABS: BUN/Creatinine Ratio 30.5 (8-20); Calcium 8.5 mg/dL (8.6-10.3); EGFR African American 135.3 (>60); EGFR Non-African American 111.8 (>60); Magnesium 1.6 mg/dL (1.9-2.7); Phosphorus 4.8 mg/dL (2.5-5.0); Potassium 4.2 mmol/L (3.5-5.0); Total Bilirubin 0.3 mg/dL (0.2-1.0)
[2019-06-05] MEDS: Sucralfate SUSP 1 GM/10 ml 10 ML UDC PO SCH ×4 (05:56→19:18)
[2019-06-05] MEDS: oxyCODONE TAB* 5 MG TAB PO PRN ×2 (06:09→16:25)
[2019-06-05 06:10] LABS: ABS Eosinophils 0.1 10^3/ul (0-0.6); ABS Lymphocytes 0.6 10^3/ul (1.0-4.8); ABS Monocytes 0.6 10^3/ul (0-0.8); ABS Neutrophils 2.2 10^3/ul (1.5-7.7); Eosinophil % 3.1 %; Lymphocyte % 16.9 %
[2019-06-05] MEDS: Magnesium Oxide TAB* 400 MG PO SCH ×2 (09:30→19:56)
[2019-06-05] MEDS: BuPROPion XL* 300 MG TAB.XL PO SCH (09:31)
[2019-06-05] MEDS: Pantoprazole TAB * 40 MG TAB PO SCH ×2 (09:31→19:56)
[2019-06-05] MEDS: Gabapentin CAP(*) 300 MG PO SCH ×3 (09:31→19:56)
[2019-06-05] MEDS: Cyanocobalamin TAB* 500 MCG PO SCH (09:31)
[2019-06-05] MEDS: QUEtiapine TAB* 100 MG PO SCH ×2 (09:32→19:56)
[2019-06-05] MEDS: busPIRone TAB* 5 MG PO SCH ×2 (13:26→19:56)
--- NOTE | 2019-06-05 16:16 | PN ---
Subjective Date of Service: 06/05/19 Interval History: Patient seen and examined. Very happy to be eating "real food" today. Denies abdominal pain, no n/v, no fever or chills. We discussed adding buspar and atarax back to her regimen, would also like ambien for sleep at discharge. Objective Active Medications: Acetaminophen (Tylenol Tab*) 650 mg PO Q4H PRN PRN Reason: PAIN - MILD Last Admin: 06/03/19 07:59 Dose: 650 mg Bupropion HCl (Bupropion Xl*) 300 mg PO DAILY [facility] Last Admin: 06/05/19 09:31 Dose: 300 mg Buspirone HCl (Buspar Tab*) 5 mg PO TID [facility] Last Admin: 06/05/19 13:26 Dose: 5 mg Cyanocobalamin (Vitamin B12 Tab*) 1,000 mcg PO DAILY [facility] Last Admin: 06/05/19 09:31 Dose: 1,000 mcg Diphenhydramine HCl (Benadryl Po*) 25 mg PO BEDTIME PRN PRN Reason: SLEEP Gabapentin (Neurontin Cap(*)) 300 mg PO TID [facility] Last Admin: 06/05/19 13:26 Dose: 300 mg Heparin Sodium (Porcine) (Heparin Flush Picc/Ml/Cvc(*)) 1 ml FLUSH 0600,1800 [facility]; Protocol Last Admin: 06/05/19 05:07 Dose: 2 ml Hydroxyzine HCl (Atarax Tab*) 10 mg PO Q6H PRN PRN Reason: ANXIETY Dextrose 500 ml/ Amino Acids 850 ml/ Sterile Water 150 ml/Fat Emulsion Intravenous 250 ml/ Sodium Chloride 75 meq/Potassium Chloride 25 meq/Potassium Phosphate 10 mmole/Calcium Gluconate 15 meq/Magnesium Sulfate 20 meq/ Multivitamins 10 ml/ Trace Metals 1 ml/ Potassium Acetate 25 meq/ Nutrition ( Parenteral ) 1,845.2674 mls @ 76.886 mls/hr CENT\\PICC 1700 [facility] Last Admin: 06/04/19 18:10 Dose: 76.886 mls/hr Levothyroxine Sodium (Synthroid Tab*) 25 mcg PO DAILY@0600 [facility] Last Admin: 06/05/19 05:03 Dose: 25 mcg Magnesium Oxide (Magox 400 Tab*) 800 mg PO BID [facility] Last Admin: 06/05/19 09:30 Dose: 800 mg Midodrine (Midodrine) 5 mg PO BID [facility]; Protocol Last Admin: 06/05/19 09:31 Dose: 5 mg Ondansetron HCl (Zofran Inj*) 4 mg IV Q4H PRN PRN Reason: NAUSEA/VOMITING Last Admin: 05/31/19 20:27 Dose: 4 mg Oxycodone HCl (Roxycodone Tab*) 2.5 mg PO Q8H PRN PRN Reason: PAIN - SEVERE Last Admin: 06/05/19 06:09 Dose: 2.5 mg Pantoprazole Sodium (Protonix Tab*) 40 mg PO BID [facility] Last Admin: 06/05/19 09:31 Dose: 40 mg Quetiapine Fumarate (Seroquel Tab*) 100 mg PO BID [facility] Last Admin: 06/05/19 09:32 Dose: 100 mg Sucralfate (Sucralfate Susp) 1 gm PO 0630,1100,1600,2100 [facility] Last Admin: 06/05/19 11:34 Dose: 1 gm Zolpidem Tartrate (Ambien Tab*) 5 mg PO BEDTIME PRN PRN Reason: SLEEP Last Admin: 06/04/19 19:57 Dose: 5 mg Vital Signs - 8 hr 06/05/19 06/05/19 06/05/19 09:31 09:32 11:35 Respiratory 19 19 18 Rate 06/05/19 06/05/19 13:26 15:28 Respiratory 16 16 Rate Oxygen Devices in Use Now: None Appearance: alert, NAD Eyes: PERRLA Ears/Nose/Mouth/Throat: Mucous Membranes Moist, - - edentulous Neck: NL Appearance and Movements; NL JVP Respiratory: Symmetrical Chest Expansion and Respiratory Effort Cardiovascular: NL Sounds; No Murmurs; No JVD, RRR, No Edema Abdominal: NL Sounds; No Tenderness; No Distention Extremities: No Edema, No Clubbing, Cyanosis Skin: No Rash or Ulcers Neurological: Alert and Oriented x 3 Nutrition: Taking PO's, - - tolerating advance to GI soft diet - Nutrition: Malnutrition Diagnosis/Plan Malnutrition Assessment by Registered Dietitian: Malnutrition Assessment Clinical Characteristics Chronic,Severe Malnutrition Assessment: Previous Admission Criteria Met: Criteria Muscle Wasting - Clavicular muscles (severe) Inadequate Oral Intake - 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 - anticipate meeting <75% nutrient needs >1 mo (severe) Unintentional Weight Loss - Pt reports >400lb wt loss 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, endorsing unintentional wt loss x4 mos; current wt 120lb, UBW 170lb x4 mos ago - 29.4% loss x4 mos ( severe ) Current Admission Criteria Met: Muscle Wasting - Clavicular muscles (severe) Unintentional Weight Loss - Current wt 143lb, UBW 170lb x5 mos ago - 15.9% difference x5 mos ( severe) Malnutrition Assessment: Nutrient Delivery - TPN ([employer] A) Interventions continues; see Nutrition Support Assessment above for details; anticipate little risk for refeeding given extended period on nutrition support; will follow. Agree w/ current TPN infusion; will follow for ability to tolerate diet and meet nutritional adequacy to ultimately d/c TPN Labs - Will monitor labs closely in the setting of PPN/TPN GI Related - Recommend continuing pain mgmt PRN ; will monitor GI s/sx for development Malnutrition Assessment: Goals 1) Pt will tolerate slow diet advancement w/o exac/development of GI s/sx 2) Adequate parenteral infusion to replete lean body mass and support hydration status 3) Maintain fluid/electrolyte balance w/ adequate parenteral infusion 4) Maintain glycemic control w/ adequate parenteral infusion w/o s/sx hypo-/ hyperglycemia 5) Maintain bowel regularity w/ slow diet advancement w/o development of diarrhea/ constipation 6) Ultimately, adequate po intake to support above goals w/o need for TPN Result Diagrams: 06/05/19 05:06 06/05/19 05:06 Assess/Plan/Problems-Billing Assessment: This is a 43 year old female with history of malnutrition 2/2 gastric outlet obstruction, on Swing status for TPN. - Patient Problems (1) Chronic malnutrition Code(s): E46 - UNSPECIFIED PROTEIN-CALORIE MALNUTRITION SNOMED Code(s): 4006519 Comment: - Chronic/severe, on TPN as recommended by GI for total of 6 weeks (until June 09) - Will need follow up at [place], outpatient appointment arrangements made for dilatation eval. - Tolerated FLD last 5 days, advanced to GI soft today without issue, continue to monitor closely - Plans to continue TPN until 06/08 and discharge on 06/09 to [facility] (2) Gastrojejunal ulcer Code(s): K28.9 - GASTROJEJUNAL ULCER, UNSP ACUTE OR CHR, W/O HEMOR OR PERF SNOMED Code(s): 29494761 Comment: - EGD on 04/29/19 showing severe ulceration at anastomosis; unable to pass EGD scope to evaluate - Has been on TPN at GI recommendation since 04/29/19 with slow advance on diet in the last 10 days which she is tolerating - Continue Zofran, omeprazole, carafate; No NSAIDS - Has outpatient follow up in [place] after discharge (3) Anemia Code(s): D64.9 - ANEMIA, UNSPECIFIED SNOMED Code(s): 814123070 Comment: - Mixed etiology secondary to AOCD, gastric bypass and malnutrition - Continue omeprazole - B12 injections --> to PO B12 supplements - Should have outpatient hematology follow up (4) Bipolar disorder Code(s): F31.9 - BIPOLAR DISORDER, UNSPECIFIED SNOMED Code(s): 57880103 Comment: - Continue bupropion 300 mg daily; Seroquel 100 mg bid - Added atarax PRN and buspar TID today in anticipation of prep for Discharge next week - Given her recent self injection of benadryl into her picc line we did call psych to evaluate the patient given the risk of self harm. She was cleared from 1:1. Needs outpatient psychiatric care and follow up in the community - Social work involved (5) Chronic pain disorder Code(s): G89.4 - CHRONIC PAIN SYNDROME SNOMED Code(s): 690441575 Comment: - Dr. Barnes initiated opiate wean - Started by tapering from oxycodone 5 Q6hr to 5 mg Q8hr. - Currenlty at 2.5 mg Q8hrs last 6 days, today will decrease to 2.5 mg Q12 per taper schedule until she is completly off (6) DVT prophylaxis Code(s): Z29.9 - ENCOUNTER FOR PROPHYLACTIC MEASURES, UNSPECIFIED SNOMED Code( s): 986018801 Comment: - SCD due to thrombocytopenia (7) Full code status Code(s): Z78.9 - OTHER SPECIFIED HEALTH STATUS SNOMED Code(s): 770159128 Comment: Status and Disposition: Swing, Discharge to [facility] on 06/09/2019. Will need scripts to [facility] in [place] $4 plan.
[2019-06-05] MEDS: TPN* 24 HR with Dextrose 40% Water* 500 ML, Amino Acid Infusion 10%* 850 ML, Sterile Wa... CENT\\PICC SCH ×13 (16:48)
[2019-06-05] MEDS: Zolpidem TAB* 5 MG PO PRN (19:56)
[2019-06-06] MEDS: hydrOXYzine HCL TAB* 10 MG PO PRN ×2 (01:47→09:27)
[2019-06-06] MEDS: oxyCODONE TAB* 5 MG TAB PO PRN ×2 (04:22→19:45)
[2019-06-06] MEDS: Levothyroxine TAB* 25 MCG TAB PO SCH (04:22)
[2019-06-06] MEDS: Sucralfate SUSP 1 GM/10 ml 10 ML UDC PO SCH ×4 (06:00→20:15)
[2019-06-06] MEDS: Ondansetron INJ* 2 MG/ML VIAL IV PRN (06:02)
[2019-06-06] MEDS: Acetaminophen TAB* 325 MG PO PRN ×2 (06:02→19:46)
[2019-06-06 06:06] LABS: ABS Eosinophils 0.1 10^3/ul (0-0.6); ABS Lymphocytes 0.2 10^3/ul (1.0-4.8); ABS Monocytes 0.2 10^3/ul (0-0.8); ABS Neutrophils 5.1 10^3/ul (1.5-7.7); Hematocrit 25 % (35-47); Hemoglobin 8.3 g/dL (12.0-16.0); Lymphocyte % 4.1 %; Mean Corpuscular HGB Conc 33 g/dL (31-36); Mean Corpuscular Hemoglobin 32 pg (27-31); Mean Corpuscular Volume 96 fL (80-97); Mean Platelet Volume 9.3 fL (7.4-10.4); Platelet Count 166 10^3/uL (150-450); Red Blood Count 2.61 10^6 /uL (3.70-4.87); Red Cell Distribution Width 17 % (10-15); White Blood Count 5.6 10^3/uL (3.5-10.8)
[2019-06-06 06:23] LABS: Albumin 3.1 g/dL (3.2-5.2); BUN/Creatinine Ratio 32.9 (8-20); Calcium 8.5 mg/dL (8.6-10.3); EGFR Non-African American 91.8 (>60); Potassium 3.9 mmol/L (3.5-5.0); Total Bilirubin 0.4 mg/dL (0.2-1.0); Total Protein 6.1 g/dL (6.4-8.9)
[2019-06-06] MEDS: BuPROPion XL* 300 MG TAB.XL PO SCH (09:26)
[2019-06-06] MEDS: QUEtiapine TAB* 100 MG PO SCH ×2 (09:27→20:01)
[2019-06-06] MEDS: Gabapentin CAP(*) 300 MG PO SCH ×3 (09:27→19:46)
[2019-06-06] MEDS: Pantoprazole TAB * 40 MG TAB PO SCH ×2 (09:27→19:47)
[2019-06-06] MEDS: Cyanocobalamin TAB* 500 MCG PO SCH (09:27)
[2019-06-06] MEDS: busPIRone TAB* 5 MG PO SCH ×3 (09:27→19:46)
[2019-06-06] MEDS: Magnesium Oxide TAB* 400 MG PO SCH ×2 (09:27→19:46)
[2019-06-06] MEDS: TPN* 24 HR with Dextrose 40% Water* 500 ML, Amino Acid Infusion 10%* 850 ML, Sterile Wa... CENT\\PICC SCH ×13 (16:36)
[2019-06-06] MEDS: Zolpidem TAB* 5 MG PO PRN (19:46)
[2019-06-07] MEDS: Sucralfate SUSP 1 GM/10 ml 10 ML UDC PO SCH ×4 (05:46→21:58)
[2019-06-07] MEDS: Levothyroxine TAB* 25 MCG TAB PO SCH (05:46)
[2019-06-07] MEDS: busPIRone TAB* 5 MG PO SCH ×3 (08:31→21:50)
[2019-06-07] MEDS: Magnesium Oxide TAB* 400 MG PO SCH ×2 (08:31→21:50)
[2019-06-07] MEDS: Gabapentin CAP(*) 300 MG PO SCH ×3 (08:31→21:50)
[2019-06-07] MEDS: BuPROPion XL* 300 MG TAB.XL PO SCH (08:31)
[2019-06-07] MEDS: hydrOXYzine HCL TAB* 10 MG PO PRN (08:31)
[2019-06-07] MEDS: oxyCODONE TAB* 5 MG TAB PO PRN ×2 (08:32→21:52)
[2019-06-07] MEDS: QUEtiapine TAB* 100 MG PO SCH ×2 (08:32→21:51)
[2019-06-07] MEDS: Pantoprazole TAB * 40 MG TAB PO SCH ×2 (08:32→21:51)
[2019-06-07] MEDS: Cyanocobalamin TAB* 500 MCG PO SCH (08:32)
[2019-06-07] MEDS: Ondansetron INJ* 2 MG/ML VIAL IV PRN (11:52)
[2019-06-07] MEDS: TPN* 24 HR with Dextrose 40% Water* 500 ML, Amino Acid Infusion 10%* 850 ML, Sterile Wa... CENT\\PICC SCH ×13 (17:45)
[2019-06-07] MEDS: Zolpidem TAB* 5 MG PO PRN (21:50)
[2019-06-08] MEDS: Levothyroxine TAB* 25 MCG TAB PO SCH (06:16)
[2019-06-08] MEDS: Sucralfate SUSP 1 GM/10 ml 10 ML UDC PO SCH ×4 (06:17→20:03)
[2019-06-08] MEDS: Gabapentin CAP(*) 300 MG PO SCH ×3 (10:01→19:57)
[2019-06-08] MEDS: QUEtiapine TAB* 100 MG PO SCH ×2 (10:01→19:57)
[2019-06-08] MEDS: busPIRone TAB* 5 MG PO SCH ×3 (10:01→19:57)
[2019-06-08] MEDS: Pantoprazole TAB * 40 MG TAB PO SCH ×2 (10:01→19:58)
[2019-06-08] MEDS: Magnesium Oxide TAB* 400 MG PO SCH ×2 (10:01→19:57)
[2019-06-08] MEDS: BuPROPion XL* 300 MG TAB.XL PO SCH (10:09)
[2019-06-08] MEDS: oxyCODONE TAB* 5 MG TAB PO PRN (10:09)
[2019-06-08] MEDS ORDERED: Cyanocobalamin TAB* 500 MCG ONE ×2 (10:13→10:17)
[2019-06-08] MEDS: Cyanocobalamin TAB* 500 MCG PO SCH (10:15)
[2019-06-08] MEDS: TPN* 24 HR with Dextrose 40% Water* 500 ML, Amino Acid Infusion 10%* 850 ML, Sterile Wa... CENT\\PICC SCH ×13 (18:34)
[2019-06-08] MEDS: Zolpidem TAB* 5 MG PO PRN (19:57)
--- NOTE | 2019-06-08 21:58 | DS ---
CC: Dr. Zac Adrian * DISCHARGE SUMMARY: DATE OF ADMISSION: 05/31/19 DATE OF DISCHARGE: 06/08/19 PRIMARY CARE PROVIDER: Zac Adrian MD ATTENDING PHYSICIAN: Josep Gray MD * (DICTATED BY DENISA PLASCENCIA NP) PRIMARY DIAGNOSES: 1. 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 2. Chronic malnutrition. 3. Anemia of chronic disease. SECONDARY DIAGNOSES: 1. Bipolar disorder. 2. Chronic pain. HISTORY OF PRESENT ILLNESS AND HOSPITAL COURSE: Ms. Callaway is a 43-year-old female with past medical history of gastric bypass surgery with chronic malnutrition, provoked DVT, chronic pain, and bipolar, who has had a complicated hospital stay here at [facility]. Initially, the patient was hospitalized at this facility from 04/16/19 to 04/24/19 with abdominal pain. At that point, she was discharged home with strict diet instructions, although ultimately the patient was not compliant and presented again on 04/27/19 with abdominal pain. The patient was then admitted inpatient from 04/27/19 to 05/13/19. Please see the full history and physical and discharge summary from that stay, though ultimately it was discovered on EGD that the patient had severe ulceration and stricture at the gastrojejunal anastomosis site. Gastroenterology and Surgery were both consulted and ultimately, the patient was made n.p.o. and placed on TPN. She was changed to swing status on 05/13/19 as Gastroenterology recommended that she has 6 to 8 weeks of TPN to allow time for the ulceration to heal. At that time, the patient was tolerating a small amount of clear liquids. The patient was discharged from swing and readmitted inpatient on 05/26/19. When she was found to have crushed Benadryl diluted with tap water and self-injected into her PICC line, she subsequently developed a fever and PICC line was removed. She was placed on cefepime and vanco and Infectious Disease was consulted. The patient was again changed to swing status on 05/31/19. Ultimately, antibiotics were discontinued. There was never any clearly identified source of infection. The patient has remained on TPN and her diet has been fully advanced. At this point, the patient has been tolerating a soft diet for the last 4 days and has adequate p.o. intake according to dietary. At the time of this dictation on 06/08/19, the patient's TPN will be stopped tonight and PICC line will be removed. The patient will be discharged in the morning with followup in [place] for treatment of the stricture. Additionally, I will note that after the patient was discharged, a large box was found in her room which contained many empty food wrappers (chips, cookies, etc.). It is unclear when the patient consumed these items, but nursing reports that the box was delivered to her room approximately two weeks ago. PHYSICAL EXAMINATION: On exam, the patient is alert and oriented x4. She has no focal neurological deficits. Her heart has a regular rate and rhythm without murmurs, rubs, or gallops. Lungs are clear to auscultation without rhonchi, wheezes, or rubs. Abdomen is soft, nontender with normoactive bowel sounds. Ms. Callaway is stable for discharge. Most recent vitals are as follows: Temp 97.6, heart rate 90, respiratory rate 14, oxygen saturation 99% on room air , blood pressure 100/65. DISCHARGE MEDICATIONS: New medications: 1. Buspirone 5 mg p.o. t.i.d. 2. Vitamin B12 1000 mcg p.o. daily. 3. Magnesium oxide 800 mg p.o. b.i.d. 4. Midodrine 5 mg p.o. b.i.d. 5. Carafate 1 g p.o. a.c. 6. Ambien 5 mg p.o. at bedtime p.r.n. insomnia. Changed medications: 1. Hydroxyzine 10 mg p.o. q.6 hours p.r.n. anxiety (previously was 50 mg q.8 hours.). Continued medications: 1. Docusate 100 mg p.o. b.i.d. 2. Bupropion XL 300 mg p.o. daily. 3. Gabapentin 300 mg p.o. t.i.d. 4. Levothyroxine 25 mcg p.o. daily. 5. Pantoprazole 40 mg p.o. b.i.d. 6. Seroquel 100 mg p.o. b.i.d. Discontinued medications: 1. Eliquis. 2. Amitiza. 3. Dicyclomine. DISCHARGE PLAN: Ms. Callaway will be discharged home. The patient is currently homeless and so social work has been arranged that the patient will be discharged directly to [facility] [employer] [facility] in [facility] where she will receive assistance with housing. Activity will be as tolerated. Diet will be soft. Strict compliance with diet is necessary at this point. Medications are noted above. The patient has been started on multiple new medications while here in the hospital including buspirone for anxiety, midodrine for hypotension, and Carafate for gastrojejunal ulcer. She can continue her other usual medications with the exception of Eliquis, which has been discontinued as the patient was on anticoagulation for greater than 6 months for a provoked DVT. Amitiza and dicyclomine have also been discontinued as there has not been any evidence of diarrhea. The patient will need to follow up with her primary care provider in the next 4 to 7 days. Case management is still in the process of scheduling an appointment for the patient in [place] for gastrointestinal followup. The patient should return to the emergency room or nearest hospital for any worsening of symptoms, shortness of breath, lightheadedness, dizziness, chest discomfort, high fevers, chills, night sweats, loss of consciousness, or any other worrisome signs or symptoms. DISCHARGE CONDITION: Stable. DISCHARGE DISPOSITION: Home. This is a summarized report of a complex medical history and hospital stay. For further details, please see the entire medical record. Additionally, please see each of the history and physicals and discharge summaries as the patient was transferred from inpatient to [facility] status multiple times. TIME SPENT: Approximately 60 minutes was spent on this discharge. DENISA PLASCENCIA NP [id number]/CPS #: [id number] ELISA
[2019-06-09] MEDS: Sucralfate SUSP 1 GM/10 ml 10 ML UDC PO SCH ×2 (05:43→11:02)
[2019-06-09] MEDS: oxyCODONE TAB* 5 MG TAB PO PRN (05:44)
[2019-06-09] MEDS: hydrOXYzine HCL TAB* 10 MG PO PRN (05:44)
[2019-06-09] MEDS: Levothyroxine TAB* 25 MCG TAB PO SCH (05:44)
[2019-06-09 08:47] VITALS: BP 90/59
[2019-06-09] MEDS: Gabapentin CAP(*) 300 MG PO SCH (10:40)
[2019-06-09] MEDS: busPIRone TAB* 5 MG PO SCH (10:41)
[2019-06-09] MEDS: BuPROPion XL* 300 MG TAB.XL PO SCH (10:41)
[2019-06-09] MEDS: Cyanocobalamin TAB* 500 MCG PO SCH (10:41)
[2019-06-09] MEDS: QUEtiapine TAB* 100 MG PO SCH (10:41)
[2019-06-09] MEDS: Magnesium Oxide TAB* 400 MG PO SCH (10:41)
[2019-06-09] MEDS: Pantoprazole TAB * 40 MG TAB PO SCH (10:41)
== END 2019-06-09 10:55 | disposition home or self-care (01) | DRG 388 ==
LOC: MED 17:48
PROVIDERS: ADMIT Internal Medicine; ATTEND Internal Medicine
PROC: 3E0436Z Introduction of Nutritional Substance into Central Vein, Percutaneous Approach (ICD-10-PCS; principal; 2019-05-31)
DX: K56.609 Unspecified intestinal obstruction, unspecified as to partial versus complete obstruction (principal); E43 Unspecified severe protein-calorie malnutrition; K28.9 Gastrojejunal ulcer, unspecified as acute or chronic, without hemorrhage or perforation; D63.8 Anemia in other chronic diseases classified elsewhere; I95.89 Other hypotension; F31.9 Bipolar disorder, unspecified; G89.29 Other chronic pain; E83.42 Hypomagnesemia; E03.9 Hypothyroidism, unspecified; Z86.718 Personal history of other venous thrombosis and embolism; Z68.24 Body mass index [BMI] 24.0-24.9, adult; Z98.84 Bariatric surgery status; Z79.1 Long term (current) use of non-steroidal anti-inflammatories (NSAID); Z79.891 Long term (current) use of opiate analgesic; Z79.899 Other long term (current) drug therapy; Z88.6 Allergy status to analgesic agent; Z88.1 Allergy status to other antibiotic agents; Z88.8 Allergy status to other drugs, medicaments and biological substances; Z83.3 Family history of diabetes mellitus; Z87.891 Personal history of nicotine dependence; Z59.0 Homelessness; D72.819 Decreased white blood cell count, unspecified
CPT/HCPCS: 36415; 80048; 80053; 80202; 82465; 83735; 84100; 84134; 84478; 85025; 85060; A9270-GY; J0692; J2405; J2997; J3370; J3475; J3480

== ENCOUNTER 2019-07-10 10:13 | Emergency (ER) | payer SELFPAY ==
--- NOTE | 2019-07-10 10:23 | ED ---
Psychiatric Complaint - HPI Summary HPI Summary: Patient is a 43 y/o F presenting to [facility] on a 941 by police for a psychiatric complaint. Per police report, patient's father stated the patient has been having hallucinations and expressing SI nightly. On triage, patient reported derogatory statements towards her father. Patient notes that she has not been compliant with her medications for a PMHx of anxiety. She had not taken her medications, hydroxyzine and Risperdal, for the last month. She does admit to taking Benadryl a few days ago. Patient denies SI at the present time, but notes right shoulder and right arm pain and numbness for the last few weeks and vision changes. Patient admits to smoking 1 pack of cigarettes daily and rare alcohol use, but denies drug use. Patient has had visits to [facility] for mental health in the past. - History Of Current Complaint Chief Complaint: EDMentalHealth Time Seen by Provider: 07/10/19 10:20 Hx Obtained From: Patient, Other: - Police Onset/Duration: Sudden Onset, Still Present Timing: Constant Severity Initially: Moderate Severity Currently: Moderate Character: Anxious Aggravating Factor(s): Medication Non-compliance Alleviating Factor(s): Nothing Associated Signs And Symptoms: Positive: Hallucinating Related History: Positive For: Prior Psychiatric Issues Has Suicidal: Denies: Thoughts - Allergies/Home Medications Allergies/Adverse Reactions: Allergies Allergy/AdvReac Type Severity Reaction Status Date / Time erythromycin base Allergy Swelling Verified 04/27/19 14:36 metoclopramide [From Reglan] Allergy Itching Verified 04/27/19 14:36 nitrofurantoin Allergy Swelling Verified 04/27/19 14:36 [From Macrobid] NSAIDS (Non-Steroidal Allergy Bleeding Verified 04/27/19 14:36 Anti-Inflamma terbutaline Allergy Anaphylatic Verified 07/10/19 10:19 Shock Home Medications: Home Medications Apixaban* [Eliquis*] 5 mg PO BID 07/10/19 [History Confirmed 07/10/19] Polyethylene Glycol 3350* [Miralax*] 17 gm PO DAILY 07/10/19 [History Confirmed 07/10/19] Potassium Chloride [Klor-Con] 20 meq PO DAILY 07/10/19 [History Confirmed ] QUEtiapine TAB* [Seroquel 100 MG *] 25 mg PO BID 07/10/19 [History Confirmed 09/24] hydrOXYzine HCL TAB* [Atarax 10 MG TAB*] 50 mg PO Q8H PRN 07/10/19 [History Confirmed 07/10/19] risperiDONE TAB* [RisperDAL*] 3 mg PO BEDTIME 07/10/19 [History Confirmed ] PMH/Surg Hx/FS Hx/Imm Hx Previously Healthy: Yes Endocrine/Hematology History: Reports: Hx Blood Transfusions, Hx Thyroid Disease , Hx Anemia Denies: Hx Anticoagulant Therapy, Hx Diabetes Cardiovascular History: Reports: Hx Cardiac Arrest - multiple times during surgery, Other Cardiovascular Problems/Disorders - 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 Denies: Hx Congestive Heart Failure, Hx Hypertension, Hx Pacemaker/ICD Respiratory History: Denies: Hx Asthma, Hx Chronic Obstructive Pulmonary Disease (COPD) GI History: Reports: Hx Gall Bladder Disease - REMOVAL, Hx Gastroesophageal Reflux Disease, Hx Irritable Bowel, Hx Obstructive Bowel, Other GI Disorders - SBOx2, incarcerated hernia, gastric bypass, jeronimo, appy, hysterectomy History: Reports: Hx Acute Renal Failure, Hx Renal Disease - ACUTE RENAL FAILURE 2017 Denies: Hx Dialysis, Hx Kidney Stones, Other Problems/Disorders Musculoskeletal History: Reports: Hx Arthritis, Other Musculoskeletal History - carpal tunnel Sensory History: Denies: Hx Contacts or Glasses, Hx Legally Blind, Hx Deafness, Hx Hearing Aid Opthamlomology History: Denies: Hx Contacts or Glasses, Hx Legally Blind EENT History: Denies: Hx Deafness Neurological History: Reports: Hx Headaches Denies: Hx Dementia, Hx Seizures, Other Neuro Impairments/Disorders Psychiatric History: Reports: Hx Anxiety, Hx Depression Denies: Hx Eating Disorder, Hx Panic Disorder, Hx of Violent Episodes Against Others, Hx Substance Abuse - Surgical History Surgical History: Yes Surgery Procedure, Year, and Place: gastric bypass 2001, hystercectomy 2006, appendectomy, cholecystectomy, hernia repair Hx Anesthesia Reactions: No - Immunization History Date of Tetanus Vaccine: Unknown Date of Influenza Vaccine: last year Infectious Disease History: No Infectious Disease History: Reports: Hx of Known/Suspected MRSA - PER RECORDS, Hx Shingles, Hx Known/Suspected VRE Denies: Hx Hepatitis, Hx Human Immunodeficiency Virus (HIV), Traveled Outside the [place] in Last 30 Days - Family History Known Family History: Positive: Other - no history of depression Negative: Cardiac Disease, Hypertension, Diabetes - Social History Occupation: Disabled Alcohol Use: None Hx Substance Use: No Substance Use Type: Reports: None Hx Tobacco Use: Yes - has not smoked in several months Smoking Status (MU): Heavy Every Day Tobacco Smoker Type: Cigarettes Amount Used/How Often: 1 pack/day Have You Smoked in the Last Year: No Review of Systems Negative: Fever Positive: Arthralgia - Right shoulder, Myalgia - Right arm Psychological: Other - Positive SI, not at present time Positive: Anxious All Other Systems Reviewed And Are Negative: Yes Physical Exam - Summary Physical Exam Summary: Constitutional: Well-developed, Well-nourished, Alert.(-) Distressed Skin: Warm, Dry HENT: Normocephalic; Atraumatic Eyes: Conjunctiva normal Neck: Musculoskeletal ROM normal neck. (-) JVD, (-) Stridor, (-) Nuchal rigidity Cardio: Rhythm regular, rate normal, Heart sounds normal; Intact distal pulses; Radial pulses are 2+ and symmetric. (-) Murmur Pulmonary/Chest wall: Effort normal. (-) Respiratory distress, (-) Wheezes, (-) Rales Abd: Soft, (-) tenderness, (-) Distension, (-) Guarding, (-) Rebound Musculoskeletal: (-) Edema. Tenderness to the right mid-humerus. Lymph: (-) Cervical adenopathy Neuro: Alert, Oriented x3 Psych: Hyperverbal, anxious. Triage Information Reviewed: Yes Vital Signs On Initial Exam: Initial Vitals Temp Pulse Resp BP Pulse Ox 98.7 F 101 13 154/90 98 07/10/19 10:14 07/10/19 10:14 07/10/19 10:14 07/10/19 10:14 07/10/19 10:14 Vital Signs Reviewed: Yes Procedures - Sedation Patient Received Moderate/Deep Sedation with Procedure: No Diagnostics - Vital Signs Vital Signs Temp Pulse Resp BP Pulse Ox 07/10/19 10:14 98.7 F 101 13 154/90 98 - Laboratory Result Diagrams: 07/10/19 10:43 07/10/19 10:43 Lab Statement: Any lab studies that have been ordered have been reviewed, and results considered in the medical decision making process. - EKG 10:58 Cardiac Rate: NL - 93 BPM EKG Rhythm: Sinus Rhythm ST Segment: Normal Ectopy: None Summary of EKG Findings: An EKG at 10:58 reveals normal sinus rhythm with significant artefact that obscures any interpretation, 93 BPM, nml axis, nml intervals. No obvious STEMI. No acute changes. Reviewed and interpreted by Dr. Kelley. Re-Evaluation - Re-Evaluation First Eval Re-Evaluation Time: 11:00 Change: Unchanged Comment: At 11:00, daryl is medically cleared for a mental health evaluation. Second Eval Re-Evaluation Time: 12:15 Change: Unchanged Comment: At 12:15, patient was moved to the [facility]. Course/Dx - Course Course Of Treatment: 43 y/oF w hx BPD p/w Si and anxiety. -Also reporting mild R arm pain 2/2 sleeping position, mild lightheadedness. Check labs including trop and EKG. Recent admit in May for abdominal pain 2/2 stricture and found to have been injecting Benadryl into PICC. - trop neg, EKG has artifact 2 /2 patient motion. - labs notable for baseline anemia, potassium repleted. - Differential Dx/Clinical Impression Provider Diagnosis: Borderline personality disorder, Anxiety disorder - Physician Notifications Discussed Care Of Patient With: Myke Gauthier - At 18:39, data entry associate reports that patients case was reviewed by Dr. Myke Gauthier who will discharge the patient with a diagnosis of anxiety disorder and borderline personality disorder. Time Discussed With Above Provider: 18:39 Instructed by Provider To: Other - Discharge Discharge ED - Sign-Out/Discharge Documenting (check all that apply): Patient Departure - Discharge - Discharge Plan Condition: Stable Disposition: HOME Prescriptions: hydrOXYzine HCL TAB* [Atarax 25 MG TAB*] 25 mg PO TID PRN 4 Days #12 tab PRN Reason: Anxiety Referrals: Nguyễn CHOWDARY,Zac Velazquez [Primary Care Provider] - - Billing Disposition and Condition Condition: STABLE Disposition: Home - Attestation Statements Document Initiated by Scribe: Yes Documenting Scribe: Lisa Smart Provider For Whom Scribe is Documenting (Include Credential): Lalo Kelley MD Scribe Attestation: ILisa, scribed for Lalo Kelley MD on 07/10/19 at 1848. Scribe Documentation Reviewed: Yes Provider Attestation: The documentation as recorded by the scribe, Lisa Smart accurately reflects the service I personally performed and the decisions made by me, Lalo Kelley MD Status of Scribe Document: Viewed
[2019-07-10] MEDS ORDERED: hydrOXYzine HCL TAB* 50 MG PO ONE (10:28)
[2019-07-10 10:51] LABS: ABS Eosinophils 0.1 10^3/ul (0-0.6); ABS Lymphocytes 1.9 10^3/ul (1.0-4.8); ABS Monocytes 0.5 10^3/ul (0-0.8); ABS Neutrophils 2.9 10^3/ul (1.5-7.7); Hematocrit 32 % (35-47); Hemoglobin 10.7 g/dL (12.0-16.0); Lymphocyte % 34.1 %; Mean Corpuscular HGB Conc 33 g/dL (31-36); Mean Corpuscular Hemoglobin 29 pg (27-31); Mean Corpuscular Volume 87 fL (80-97); Mean Platelet Volume 8.4 fL (7.4-10.4); Nucleated Red Blood Cells % 0.2; Platelet Count 273 10^3/uL (150-450); Red Blood Count 3.68 10^6 /uL (3.70-4.87); Red Cell Distribution Width 16 % (10-15); White Blood Count 5.5 10^3/uL (3.5-10.8)
[2019-07-10 11:08] LABS: ALT 10 U/L (7-52); AST 18 U/L (13-39); Albumin/Globulin Ratio 1.3 (1-3); Alkaline Phosphatase 69 U/L (34-104); Anion Gap 10 mmol/L (2-11); BUN/Creatinine Ratio 19.7 (8-20); Blood Urea Nitrogen 13 mg/dL (6-24); CO2 Carbon Dioxide 22 mmol/L (22-32); Chloride 107 mmol/L (101-111); EGFR African American 118.8 (>60); EGFR Non-African American 98.2 (>60); Globulin 3.2 g/dL (2-4); Glucose 105 mg/dL (70-100); Potassium 3.3 mmol/L (3.5-5.0); Sodium 139 mmol/L (135-145); Total Protein 7.2 g/dL (6.4-8.9)
[2019-07-10 11:13] LABS: HCG Pregnancy 2.36 mIU/mL
[2019-07-10 11:38] LABS: Acetaminophen < 15 mcg/mL; Alcohol < 10 mg/dL (<10); Salicylate < 2.50 mg/dL (<30)
[2019-07-10 11:43] LABS: HIV 4th Generation Nonreactive (Nonreactive)
[2019-07-10 11:53] LABS: TSH (Thyroid Stimulating Horm) 2.98 mcIU/mL (0.34-5.60)
[2019-07-10] MEDS ORDERED: Potassium Chlor TAB* 20 MEQ TAB.ER PO ONE (12:28)
[2019-07-10 21:31] VITALS: BP 0/0
== END 2019-07-10 18:50 | disposition home or self-care (01) ==
LOC: ED 10:13
DX: F60.3 Borderline personality disorder (principal); F41.9 Anxiety disorder, unspecified; R44.3 Hallucinations, unspecified; Z79.899 Other long term (current) drug therapy; E03.9 Hypothyroidism, unspecified; I25.2 Old myocardial infarction; K21.9 Gastro-esophageal reflux disease without esophagitis; F17.210 Nicotine dependence, cigarettes, uncomplicated; Z98.84 Bariatric surgery status; Z86.14 Personal history of Methicillin resistant Staphylococcus aureus infection
CPT/HCPCS: 36415; 80053; 80320; 80329; 84443; 84484; 84702; 85025; 87389; 93005; 99285; A9270-GY; G0480

== ENCOUNTER 2021-03-25 11:46 | Inpatient (IN) ==
[2021-03-25] MEDS ORDERED: Ondansetron ODT 4 mg TAB 4 MG TAB PO ONE (14:09)
[2021-03-25] MEDS ORDERED: NS 0.9% 1000 ml BAG 1,000 ML IV ONE (16:41)
[2021-03-25] MEDS ORDERED: HYDROmorphone 1 MG/1 ML SYRINGE IV ONE ×2 (16:41→22:52)
[2021-03-25] MEDS ORDERED: Metoclopramide 5 MG/ML VIAL (10 mg) IV ONE (16:41)
[2021-03-25 19:00] LABS: ABS Eosinophils 0.1 10^3/ul (0-0.6); ABS Lymphocytes 2.1 10^3/ul (1.0-4.8); ABS Monocytes 0.4 10^3/ul (0-0.8); Eosinophil % 2.9 %; Hematocrit 38 % (35-47); Hemoglobin 12.9 g/dL (12.0-16.0); Lymphocyte % 45.3 %; Mean Corpuscular HGB Conc 34 g/dL (31-36); Mean Corpuscular Hemoglobin 33 pg (27-31); Mean Corpuscular Volume 98 fL (80-97); Mean Platelet Volume 7.9 fL (7.4-10.4); Nucleated Red Blood Cells % 0.2; Platelet Count 238 10^3/uL (150-450); Red Blood Count 3.89 10^6 /uL (3.70-4.87); Red Cell Distribution Width 15 % (10-15); White Blood Count 4.6 10^3/uL (3.5-10.8)
[2021-03-25 19:11] LABS: ALT 15 U/L (7-52); AST 21 U/L (13-39); Albumin 2.4 g/dL (3.2-5.2); Albumin/Globulin Ratio 0.8 (1-3); Alkaline Phosphatase 76 U/L (35-149); Anion Gap 6 mmol/L (2-11); Blood Urea Nitrogen 13 mg/dL (6-24); C Reactive Protein < 1.00 mg/L (<8.01); CO2 Carbon Dioxide 25 mmol/L (22-32); Calcium 7.5 mg/dL (8.6-10.3); Chloride 104 mmol/L (101-111); EGFR African American 79.2 (>60); EGFR Non-African American 65.5 (>60); Globulin 3.2 g/dL (2-4); Glucose 52 mg/dL (70-100); Lipase < 10 U/L (11.0-82.0); Potassium 3.8 mmol/L (3.5-5.0); Sodium 135 mmol/L (135-145); Total Protein 5.6 g/dL (6.4-8.9)
[2021-03-25] MEDS ORDERED: Iohexol 300 (CONTRAST) 10 ML SDV IV ONE (19:51)
[2021-03-26] MEDS ORDERED: HYDROmorphone 0.5 MG/0.5 ML SYRINGE IV ONE (00:34)
[2021-03-26] MEDS ORDERED: Ondansetron 4 mg VIAL 2 MG/ML 2 ml VIAL IV ONE (00:34)
[2021-03-26 01:49] LABS: Rapid COVID-19 Molecular Undetected (Undetected)
[2021-03-26] MEDS ORDERED: NS 0.9% 1000 ml BAG 1,000 ML IV SCH (02:15)
[2021-03-26] MEDS: Metoclopramide 5 MG/ML VIAL (10 mg) IV PRN ×3 (05:32→18:22)
[2021-03-26] MEDS: Enoxaparin 40 MG/0.4 ML SYR SUBCUT SCH (05:32)
[2021-03-26] MEDS: HYDROmorphone 0.5 MG/0.5 ML SYRINGE IV PRN ×4 (05:32→22:30)
[2021-03-27] MEDS: Metoclopramide 5 MG/ML VIAL (10 mg) IV PRN ×3 (03:03→16:31)
[2021-03-27] MEDS: HYDROmorphone 0.5 MG/0.5 ML SYRINGE IV PRN ×4 (03:03→20:42)
[2021-03-27] MEDS: Enoxaparin 40 MG/0.4 ML SYR SUBCUT SCH (05:32)
[2021-03-27 11:59] LABS: ABS Eosinophils 0.1 10^3/ul (0-0.6); ABS Monocytes 0.5 10^3/ul (0-0.8); ABS Neutrophils 3.6 10^3/ul (1.5-7.7); Eosinophil % 1.7 %; Hematocrit 33 % (35-47); Hemoglobin 11.1 g/dL (12.0-16.0); Lymphocyte % 20.1 %; Mean Corpuscular HGB Conc 34 g/dL (31-36); Mean Corpuscular Hemoglobin 33 pg (27-31); Mean Corpuscular Volume 100 fL (80-97); Mean Platelet Volume 7.9 fL (7.4-10.4); Platelet Count 197 10^3/uL (150-450); Red Blood Count 3.34 10^6 /uL (3.70-4.87); Red Cell Distribution Width 15 % (10-15); White Blood Count 5.2 10^3/uL (3.5-10.8)
[2021-03-27 12:16] LABS: Calcium 6.9 mg/dL (8.6-10.3); EGFR African American 97.1 (>60); EGFR Non-African American 80.2 (>60); Total Protein 4.5 g/dL (6.4-8.9)
[2021-03-27 12:17] LABS: Albumin/Globulin Ratio 0.8 (1-3); Globulin 2.5 g/dL (2-4); Total Bilirubin 0.3 mg/dL (0.2-1.0)
[2021-03-27] MEDS: Ondansetron ODT 4 mg TAB 4 MG TAB SL PRN (20:57)
[2021-03-28] MEDS: HYDROmorphone 0.5 MG/0.5 ML SYRINGE IV PRN ×6 (01:15→23:46)
[2021-03-28] MEDS: Metoclopramide 5 MG/ML VIAL (10 mg) IV PRN ×4 (01:15→23:46)
[2021-03-28] MEDS: Enoxaparin 40 MG/0.4 ML SYR SUBCUT SCH (05:46)
[2021-03-28] MEDS: Ondansetron ODT 4 mg TAB 4 MG TAB SL PRN ×3 (05:46→19:34)
[2021-03-28] MEDS ORDERED: Flu vaccine *QUAD* 2021-22* 0.5 ML SYRINGE IM ONE (09:00)
[2021-03-28] MEDS: Sucralfate 1 gm SUSP 1 GM/10 ML UDC PO SCH ×2 (09:55→17:52)
[2021-03-29] MEDS: Ondansetron ODT 4 mg TAB 4 MG TAB SL PRN ×4 (03:47→23:44)
[2021-03-29] MEDS: HYDROmorphone 0.5 MG/0.5 ML SYRINGE IV PRN ×5 (03:48→21:28)
[2021-03-29] MEDS: Metoclopramide 5 MG/ML VIAL (10 mg) IV PRN ×3 (06:03→21:29)
[2021-03-29] MEDS: Enoxaparin 40 MG/0.4 ML SYR SUBCUT SCH (06:04)
[2021-03-29] MEDS: Sucralfate 1 gm SUSP 1 GM/10 ML UDC PO SCH ×2 (07:54→17:19)
[2021-03-29] MEDS: Pantoprazole VIAL 40 MG VIAL IV SCH ×3 (13:06→23:46)
[2021-03-30] MEDS: HYDROmorphone 0.5 MG/0.5 ML SYRINGE IV PRN ×5 (01:38→20:27)
[2021-03-30] MEDS: Metoclopramide 5 MG/ML VIAL (10 mg) IV PRN ×3 (05:58→20:28)
[2021-03-30] MEDS: Enoxaparin 40 MG/0.4 ML SYR SUBCUT SCH (05:59)
[2021-03-30] MEDS: Ondansetron ODT 4 mg TAB 4 MG TAB SL PRN ×2 (10:16→22:56)
[2021-03-30 10:23] LABS: ABS Eosinophils 0.1 10^3/ul (0-0.6); ABS Lymphocytes 1.4 10^3/ul (1.0-4.8); ABS Monocytes 0.4 10^3/ul (0-0.8); ABS Neutrophils 1.7 10^3/ul (1.5-7.7); Eosinophil % 3.4 %; Hematocrit 30 % (35-47); Lymphocyte % 38.8 %; Mean Corpuscular HGB Conc 33 g/dL (31-36); Mean Corpuscular Hemoglobin 33 pg (27-31); Mean Corpuscular Volume 99 fL (80-97); Mean Platelet Volume 7.5 fL (7.4-10.4); Platelet Count 184 10^3/uL (150-450); Red Blood Count 3.06 10^6 /uL (3.70-4.87); Red Cell Distribution Width 15 % (10-15); White Blood Count 3.7 10^3/uL (3.5-10.8)
[2021-03-30 10:56] LABS: Calcium 7.4 mg/dL (8.6-10.3); EGFR African American 117.7 (>60); EGFR Non-African American 97.3 (>60); Magnesium 1.1 mg/dL (1.9-2.7); Potassium 4.1 mmol/L (3.5-5.0)
[2021-03-30] MEDS: Pantoprazole VIAL 40 MG VIAL IV SCH ×2 (12:17→22:56)
[2021-03-30] MEDS ORDERED: Midazolam 10 mg/10 ml VIAL 1 mg/ml 10 ml VIAL (10 mg) ONE (13:26)
[2021-03-30] MEDS ORDERED: diPHENhydraMINE IV 50 MG/ML 1 ml VIAL (BENADRYL) ONE (13:26)
[2021-03-30] MEDS ORDERED: fentaNYL 100 mcg/2 ml 50 MCG/ML VIAL ONE (13:26)
[2021-03-30] MEDS ORDERED: Magnesium Sulf 4 GM/100 ML IV 4,000 MG/100 ML BAG IVPB ONE (13:30)
[2021-03-31] MEDS: HYDROmorphone 0.5 MG/0.5 ML SYRINGE IV PRN ×5 (00:43→21:00)
[2021-03-31] MEDS: Enoxaparin 40 MG/0.4 ML SYR SUBCUT SCH (05:35)
[2021-03-31] MEDS: Metoclopramide 5 MG/ML VIAL (10 mg) IV PRN ×3 (05:36→21:00)
[2021-03-31] MEDS: Pantoprazole VIAL 40 MG VIAL IV SCH (11:21)
[2021-03-31] MEDS: Ondansetron ODT 4 mg TAB 4 MG TAB SL PRN (16:38)
[2021-04-01] MEDS: HYDROmorphone 0.5 MG/0.5 ML SYRINGE IV PRN ×10 (00:17→23:30)
[2021-04-01] MEDS: Pantoprazole VIAL 40 MG VIAL IV SCH ×3 (00:22→23:30)
[2021-04-01] MEDS: Ondansetron ODT 4 mg TAB 4 MG TAB SL PRN ×3 (02:38→21:59)
[2021-04-01] MEDS: Enoxaparin 40 MG/0.4 ML SYR SUBCUT SCH (05:12)
[2021-04-01] MEDS: Metoclopramide 5 MG/ML VIAL (10 mg) IV PRN ×3 (05:12→18:26)
[2021-04-01] MEDS ORDERED: Magnesium Sulf 4 GM/100 ML IV 4,000 MG/100 ML BAG IVPB ONE (09:30)
[2021-04-01 12:16] LABS: Calcium 7.5 mg/dL (8.6-10.3); EGFR African American 117.7 (>60); EGFR Non-African American 97.3 (>60); Magnesium 1.8 mg/dL (1.9-2.7); Potassium 4.6 mmol/L (3.5-5.0)
[2021-04-01] MEDS: NS 0.9% 1000 ml BAG 1,000 ML IV SCH (13:22)
[2021-04-01 19:43] LABS: Potassium 4.4 mmol/L (3.5-5.0)
[2021-04-01 19:45] LABS: EGFR African American 115.7 (>60); EGFR Non-African American 95.6 (>60)
[2021-04-02] MEDS: HYDROmorphone 0.5 MG/0.5 ML SYRINGE IV PRN ×7 (02:11→20:09)
[2021-04-02] MEDS: Metoclopramide 5 MG/ML VIAL (10 mg) IV PRN ×4 (02:12→16:14)
[2021-04-02] MEDS: NS 0.9% 1000 ml BAG 1,000 ML IV SCH ×2 (03:24→13:14)
[2021-04-02] MEDS: Enoxaparin 40 MG/0.4 ML SYR SUBCUT SCH (05:14)
[2021-04-02] MEDS: Ondansetron ODT 4 mg TAB 4 MG TAB SL PRN ×3 (05:14→19:33)
[2021-04-02] MEDS ORDERED: HYDROmorphone 0.5 MG/0.5 ML SYRINGE IV PRN (11:39)
[2021-04-02] MEDS ORDERED: Magnesium Sulfate IV 3 GM in NS 0.9% 100 ml BAG 100 ML IVPB ONE (12:00)
[2021-04-02] MEDS: Pantoprazole VIAL 40 MG VIAL IV SCH (13:21)
[2021-04-03] MEDS: NS 0.9% 1000 ml BAG 1,000 ML IV SCH (00:33)
[2021-04-03] MEDS: Pantoprazole VIAL 40 MG VIAL IV SCH ×2 (00:34→11:38)
[2021-04-03] MEDS: HYDROmorphone 0.5 MG/0.5 ML SYRINGE IV PRN ×5 (01:30→22:15)
[2021-04-03] MEDS: Metoclopramide 5 MG/ML VIAL (10 mg) IV PRN ×4 (01:31→22:15)
[2021-04-03] MEDS: Enoxaparin 40 MG/0.4 ML SYR SUBCUT SCH (06:41)
[2021-04-03] MEDS: Ondansetron ODT 4 mg TAB 4 MG TAB SL PRN ×2 (06:48→19:42)
[2021-04-03] MEDS ORDERED: Magnesium Sulfate IV 3 GM in NS 0.9% 100 ml BAG 100 ML IVPB ONE (08:25)
[2021-04-03 10:40] LABS: Blood Urea Nitrogen 10 mg/dL (6-24); CO2 Carbon Dioxide 25 mmol/L (22-32); Calcium 7.2 mg/dL (8.6-10.3); Chloride 105 mmol/L (101-111); EGFR African American 131.4 (>60); EGFR Non-African American 108.6 (>60); Glucose 85 mg/dL (70-100); Magnesium 1.7 mg/dL (1.9-2.7); Sodium 133 mmol/L (135-145)
[2021-04-03] MEDS ORDERED: NS 0.9% 1000 ml BAG 1,000 ML IV SCH (10:50)
[2021-04-03 10:53] LABS: Anion Gap 3 mmol/L (2-11)
[2021-04-04] MEDS: Pantoprazole VIAL 40 MG VIAL IV SCH ×3 (00:58→19:52)
[2021-04-04] MEDS: Metoclopramide 5 MG/ML VIAL (10 mg) IV PRN ×3 (04:32→19:52)
[2021-04-04] MEDS: HYDROmorphone 0.5 MG/0.5 ML SYRINGE IV PRN (04:32)
[2021-04-04] MEDS: Enoxaparin 40 MG/0.4 ML SYR SUBCUT SCH (05:58)
[2021-04-04 07:18] LABS: Calcium 7.4 mg/dL (8.6-10.3); EGFR African American 131.4 (>60); EGFR Non-African American 108.6 (>60); Magnesium 1.6 mg/dL (1.9-2.7); Potassium 4.4 mmol/L (3.5-5.0)
[2021-04-04] MEDS ORDERED: HYDROmorphone 0.5 MG/0.5 ML SYRINGE IV PRN (07:47)
[2021-04-04] MEDS: Ondansetron ODT 4 mg TAB 4 MG TAB SL PRN (09:11)
[2021-04-04] MEDS: Enoxaparin 100 MG/ML SYR SUBCUT SCH (17:49)
[2021-04-05] MEDS: Enoxaparin 100 MG/ML SYR SUBCUT SCH ×2 (04:52→17:13)
[2021-04-05] MEDS: Metoclopramide 5 MG/ML VIAL (10 mg) IV PRN ×3 (05:15→18:39)
[2021-04-05] MEDS: Ondansetron ODT 4 mg TAB 4 MG TAB SL PRN (10:25)
[2021-04-05] MEDS: Pantoprazole VIAL 40 MG VIAL IV SCH ×2 (10:25→20:36)
[2021-04-05 12:22] LABS: ABS Eosinophils 0.1 10^3/ul (0-0.6); ABS Lymphocytes 0.9 10^3/ul (1.0-4.8); ABS Monocytes 0.4 10^3/ul (0-0.8); ABS Neutrophils 2.5 10^3/ul (1.5-7.7); Eosinophil % 1.5 %; Hematocrit 29 % (35-47); Hemoglobin 9.7 g/dL (12.0-16.0); Lymphocyte % 24.3 %; Mean Corpuscular HGB Conc 34 g/dL (31-36); Mean Corpuscular Hemoglobin 34 pg (27-31); Mean Corpuscular Volume 99 fL (80-97); Mean Platelet Volume 8.3 fL (7.4-10.4); Platelet Count 210 10^3/uL (150-450); Red Blood Count 2.88 10^6 /uL (3.70-4.87); Red Cell Distribution Width 15 % (10-15); White Blood Count 3.9 10^3/uL (3.5-10.8)
[2021-04-05 12:38] LABS: Calcium 7.8 mg/dL (8.6-10.3); EGFR Non-African American 100.8 (>60); Potassium 4.1 mmol/L (3.5-5.0)
[2021-04-05 12:54] LABS: Magnesium 1.3 mg/dL (1.9-2.7)
[2021-04-05] MEDS ORDERED: Heparin 2 UNITS/ML 1000 mls 1,000 ML IV ONE (14:39)
[2021-04-05] MEDS ORDERED: fentaNYL 100 mcg/2 ml 50 MCG/ML VIAL ONE (15:03)
[2021-04-05] MEDS ORDERED: Magnesium Sulfate IV 3 GM in NS 0.9% 100 ml BAG 100 ML IVPB ONE (16:30)
[2021-04-05 16:37] LABS: Helicobacter pylori Result Not Detected; Specimen Source STOOL
[2021-04-06] MEDS: Metoclopramide 5 MG/ML VIAL (10 mg) IV PRN ×2 (05:19→12:14)
[2021-04-06] MEDS: Enoxaparin 100 MG/ML SYR SUBCUT SCH (06:25)
[2021-04-06] MEDS: Ondansetron ODT 4 mg TAB 4 MG TAB SL PRN (07:45)
[2021-04-06] MEDS: Pantoprazole VIAL 40 MG VIAL IV SCH (07:45)
[2021-04-06 11:07] LABS: ABS Lymphocytes 1.1 10^3/ul (1.0-4.8); ABS Monocytes 0.3 10^3/ul (0-0.8); ABS Neutrophils 1.8 10^3/ul (1.5-7.7); Eosinophil % 1.1 %; Hematocrit 28 % (35-47); Hemoglobin 9.4 g/dL (12.0-16.0); Lymphocyte % 33.4 %; Mean Corpuscular HGB Conc 34 g/dL (31-36); Mean Corpuscular Hemoglobin 34 pg (27-31); Mean Corpuscular Volume 99 fL (80-97); Platelet Count 207 10^3/uL (150-450); Red Cell Distribution Width 15 % (10-15); White Blood Count 3.3 10^3/uL (3.5-10.8)
[2021-04-06 11:14] VITALS: BP 100/66
[2021-04-06 11:20] LABS: Calcium 7.6 mg/dL (8.6-10.3); EGFR African American 104.8 (>60); EGFR Non-African American 86.6 (>60); Magnesium 1.4 mg/dL (1.9-2.7); Potassium 4.2 mmol/L (3.5-5.0)
[2021-04-06] MEDS ORDERED: Magnesium Sulfate IV 1GM/100ML 1 GM/100 ML BAG IV ONE (11:36)
== END 2021-04-06 15:00 | disposition home or self-care (01) | DRG 389 ==
LOC: ED 11:46 → SSU 03-26 02:10 → SUATTDRO 03-26 02:10 → SSU 03-26 03:38 → MED 03-28 07:44
PROVIDERS: ADMIT Hospitalist; ATTEND Hospitalist

== ENCOUNTER 2021-04-14 17:07 | Inpatient (IN) ==
[2021-04-14 23:36] LABS: ABS Eosinophils 0.1 10^3/ul (0-0.6); ABS Lymphocytes 1.9 10^3/ul (1.0-4.8); ABS Monocytes 0.5 10^3/ul (0-0.8); ABS Neutrophils 2.3 10^3/ul (1.5-7.7); Hematocrit 36 % (35-47); Hemoglobin 12.2 g/dL (12.0-16.0); Lymphocyte % 39.1 %; Mean Corpuscular HGB Conc 34 g/dL (31-36); Mean Corpuscular Hemoglobin 34 pg (27-31); Mean Corpuscular Volume 98 fL (80-97); Mean Platelet Volume 7.9 fL (7.4-10.4); Nucleated Red Blood Cells % 0.1; Platelet Count 321 10^3/uL (150-450); Red Blood Count 3.61 10^6 /uL (3.70-4.87); Red Cell Distribution Width 15 % (10-15); White Blood Count 4.8 10^3/uL (3.5-10.8)
[2021-04-14 23:42] LABS: INR 1.02 (0.86-1.15)
[2021-04-14 23:52] LABS: Albumin 2.6 g/dL (3.2-5.2); Albumin/Globulin Ratio 0.9 (1-3); Calcium 7.7 mg/dL (8.6-10.3); Potassium 3.9 mmol/L (3.5-5.0); Total Bilirubin 0.6 mg/dL (0.2-1.0); Total Protein 5.6 g/dL (6.4-8.9)
[2021-04-14] MEDS ORDERED: Lactated Ringers 1000 ml BAG 1,000 ML IV ONE (23:54)
[2021-04-14] MEDS ORDERED: Pantoprazole VIAL 40 MG VIAL IV ONE (23:58)
[2021-04-14] MEDS ORDERED: Metoclopramide 5 MG/ML VIAL (10 mg) IV SLOW PU ONE (23:59)
[2021-04-15] MEDS ORDERED: Morphine 4 MG/ML VIAL (1 ml) IV ONE (00:01)
[2021-04-15] MEDS ORDERED: Iohexol 350 (CONTRAST) 500 ML MDV IV ONE (01:19)
[2021-04-15] MEDS ORDERED: Metoclopramide 5 MG/ML VIAL (10 mg) IV SLOW PU ONE (06:38)
[2021-04-15] MEDS ORDERED: Metoclopramide 5 MG/ML VIAL (10 mg) IV PRN (08:43)
[2021-04-15] MEDS: Ondansetron 4 mg VIAL 2 MG/ML 2 ml VIAL IV PRN ×3 (09:37→23:11)
[2021-04-15] MEDS: Lactated Ringers 1000 ml BAG 1,000 ML IV SCH (09:37)
[2021-04-15] MEDS: Pantoprazole VIAL 40 MG VIAL IV SCH ×2 (09:37→23:11)
[2021-04-15] MEDS: HYDROmorphone 0.5 MG/0.5 ML SYRINGE IV SLOW PU PRN ×5 (09:37→23:12)
[2021-04-15 09:59] LABS: ABS Eosinophils 0.1 10^3/ul (0-0.6); ABS Lymphocytes 1.3 10^3/ul (1.0-4.8); ABS Monocytes 0.4 10^3/ul (0-0.8); ABS Neutrophils 1.7 10^3/ul (1.5-7.7); Eosinophil % 2.5 %; Hematocrit 30 % (35-47); Hemoglobin 10.3 g/dL (12.0-16.0); Lymphocyte % 36.2 %; Mean Corpuscular HGB Conc 34 g/dL (31-36); Mean Corpuscular Hemoglobin 34 pg (27-31); Mean Corpuscular Volume 99 fL (80-97); Mean Platelet Volume 7.5 fL (7.4-10.4); Platelet Count 271 10^3/uL (150-450); Red Blood Count 3.02 10^6 /uL (3.70-4.87); Red Cell Distribution Width 15 % (10-15); White Blood Count 3.6 10^3/uL (3.5-10.8)
[2021-04-15 10:16] LABS: ALT 11 U/L (7-52); AST 20 U/L (13-39); Albumin 2.1 g/dL (3.2-5.2); Alkaline Phosphatase 61 U/L (35-149); Anion Gap 5 mmol/L (2-11); Blood Urea Nitrogen 14 mg/dL (6-24); CO2 Carbon Dioxide 24 mmol/L (22-32); Calcium 6.8 mg/dL (8.6-10.3); Chloride 100 mmol/L (101-111); Globulin 2.2 g/dL (2-4); Glucose 61 mg/dL (70-100); Indirect Bilirubin 0.4 mg/dL (0.3-1.0); Magnesium 1.4 mg/dL (1.9-2.7); Potassium 3.8 mmol/L (3.5-5.0); Sodium 129 mmol/L (135-145); Total Protein 4.3 g/dL (6.4-8.9)
[2021-04-15 10:18] LABS: Rapid COVID-19 Molecular Undetected (Undetected)
[2021-04-15] MEDS ORDERED: Magnesium Sulf 4 GM/100 ML IV 4,000 MG/100 ML BAG IVPB ONE (10:26)
[2021-04-15] MEDS: Calcium Carb (TUMS) 500 mg CHEW TAB PO SCH ×2 (12:47→20:01)
[2021-04-15] MEDS: Enoxaparin 100 MG/ML SYR SUBCUT SCH (12:47)
[2021-04-16] MEDS: Enoxaparin 100 MG/ML SYR SUBCUT SCH ×2 (01:17→12:31)
[2021-04-16] MEDS: HYDROmorphone 0.5 MG/0.5 ML SYRINGE IV SLOW PU PRN ×6 (03:01→20:50)
[2021-04-16] MEDS: Ondansetron 4 mg VIAL 2 MG/ML 2 ml VIAL IV PRN ×3 (06:18→20:50)
[2021-04-16 08:48] LABS: C Reactive Protein < 1.00 mg/L (<8.01)
[2021-04-16] MEDS: Pantoprazole VIAL 40 MG VIAL IV SCH ×2 (10:09→20:51)
[2021-04-16] MEDS: Calcium Carb (TUMS) 500 mg CHEW TAB PO SCH ×3 (10:09→20:49)
[2021-04-16] MEDS: Lactated Ringers 1000 ml BAG 1,000 ML IV SCH (10:54)
[2021-04-16 12:56] LABS: Calcium 7.2 mg/dL (8.6-10.3); Magnesium 1.7 mg/dL (1.9-2.7); Potassium 4.1 mmol/L (3.5-5.0)
[2021-04-16] MEDS ORDERED: Magnesium Sulfate 2 gm BAG 2 GM/50 ML BAG IVPB ONE (15:39)
[2021-04-17] MEDS: Enoxaparin 100 MG/ML SYR SUBCUT SCH ×2 (02:02→13:06)
[2021-04-17] MEDS: HYDROmorphone 0.5 MG/0.5 ML SYRINGE IV SLOW PU PRN ×7 (02:04→20:51)
[2021-04-17] MEDS: Ondansetron 4 mg VIAL 2 MG/ML 2 ml VIAL IV PRN ×3 (08:15→20:51)
[2021-04-17] MEDS: Pantoprazole VIAL 40 MG VIAL IV SCH ×2 (08:15→20:51)
[2021-04-17] MEDS: Calcium Carb (TUMS) 500 mg CHEW TAB PO SCH ×3 (08:16→20:54)
[2021-04-17 14:30] LABS: ABS Eosinophils 0.1 10^3/ul (0-0.6); ABS Lymphocytes 1.5 10^3/ul (1.0-4.8); ABS Monocytes 0.5 10^3/ul (0-0.8); ABS Neutrophils 1.9 10^3/ul (1.5-7.7); Hematocrit 28 % (35-47); Hemoglobin 9.4 g/dL (12.0-16.0); Mean Corpuscular HGB Conc 34 g/dL (31-36); Mean Corpuscular Hemoglobin 33 pg (27-31); Mean Corpuscular Volume 99 fL (80-97); Mean Platelet Volume 7.5 fL (7.4-10.4); Nucleated Red Blood Cells % 0.2; Platelet Count 246 10^3/uL (150-450); Red Blood Count 2.85 10^6 /uL (3.70-4.87); Red Cell Distribution Width 15 % (10-15)
[2021-04-17 14:31] LABS: Calcium 7.4 mg/dL (8.6-10.3); Potassium 4.4 mmol/L (3.5-5.0)
[2021-04-17 18:55] LABS: Magnesium 1.4 mg/dL (1.9-2.7)
[2021-04-18] MEDS: Enoxaparin 100 MG/ML SYR SUBCUT SCH ×2 (00:21→12:07)
[2021-04-18] MEDS: Ondansetron 4 mg VIAL 2 MG/ML 2 ml VIAL IV PRN ×2 (05:37→12:08)
[2021-04-18] MEDS: HYDROmorphone 0.5 MG/0.5 ML SYRINGE IV SLOW PU PRN ×2 (05:37→18:16)
[2021-04-18] MEDS: Calcium Carb (TUMS) 500 mg CHEW TAB PO SCH ×5 (08:24→22:20)
[2021-04-18] MEDS ORDERED: HYDROmorphone 0.5 MG/0.5 ML SYRINGE IV SLOW PU PRN (09:32)
[2021-04-18] MEDS: Pantoprazole VIAL 40 MG VIAL IV SCH ×2 (10:05→22:14)
[2021-04-18 13:25] LABS: ABS Lymphocytes 1.4 10^3/ul (1.0-4.8); ABS Monocytes 0.4 10^3/ul (0-0.8); ABS Neutrophils 2.5 10^3/ul (1.5-7.7); Hematocrit 30 % (35-47); Hemoglobin 10.1 g/dL (12.0-16.0); Lymphocyte % 32.3 %; Mean Corpuscular HGB Conc 34 g/dL (31-36); Mean Corpuscular Hemoglobin 34 pg (27-31); Mean Corpuscular Volume 100 fL (80-97); Mean Platelet Volume 7.5 fL (7.4-10.4); Nucleated Red Blood Cells % 0.1; Platelet Count 257 10^3/uL (150-450); Red Blood Count 3.01 10^6 /uL (3.70-4.87); Red Cell Distribution Width 15 % (10-15); White Blood Count 4.3 10^3/uL (3.5-10.8)
[2021-04-18 14:00] LABS: Calcium 7.4 mg/dL (8.6-10.3); Magnesium 1.3 mg/dL (1.9-2.7); Potassium 4.2 mmol/L (3.5-5.0)
[2021-04-18] MEDS ORDERED: Magnesium Sulfate 2 gm BAG 2 GM/50 ML BAG IVPB ONE (14:59)
[2021-04-18] MEDS: Metoclopramide 5 MG/ML VIAL (10 mg) IV PRN (17:14)
[2021-04-18 21:34] LABS: HCG Pregnancy 1.43 mIU/mL
[2021-04-19] MEDS: Metoclopramide 5 MG/ML VIAL (10 mg) IV PRN ×4 (00:06→20:31)
[2021-04-19] MEDS: HYDROmorphone 0.5 MG/0.5 ML SYRINGE IV SLOW PU PRN ×4 (00:10→20:30)
[2021-04-19] MEDS: Enoxaparin 100 MG/ML SYR SUBCUT SCH ×2 (00:11→11:54)
[2021-04-19] MEDS: Calcium Carb (TUMS) 500 mg CHEW TAB PO SCH ×3 (07:56→20:32)
[2021-04-19 10:09] LABS: ABS Eosinophils 0.1 10^3/ul (0-0.6); ABS Lymphocytes 1.5 10^3/ul (1.0-4.8); ABS Monocytes 0.4 10^3/ul (0-0.8); ABS Neutrophils 2.5 10^3/ul (1.5-7.7); Eosinophil % 1.7 %; Hematocrit 32 % (35-47); Hemoglobin 10.4 g/dL (12.0-16.0); Lymphocyte % 33.9 %; Mean Corpuscular HGB Conc 33 g/dL (31-36); Mean Corpuscular Hemoglobin 34 pg (27-31); Mean Corpuscular Volume 103 fL (80-97); Mean Platelet Volume 6.8 fL (7.4-10.4); Nucleated Red Blood Cells % 0.2; Platelet Count 252 10^3/uL (150-450); Red Blood Count 3.08 10^6 /uL (3.70-4.87); Red Cell Distribution Width 16 % (10-15); White Blood Count 4.4 10^3/uL (3.5-10.8)
[2021-04-19 10:54] LABS: Potassium 4.7 mmol/L (3.5-5.0)
[2021-04-19 10:55] LABS: Calcium 7.2 mg/dL (8.6-10.3); Magnesium 1.7 mg/dL (1.9-2.7)
[2021-04-19] MEDS: Pantoprazole VIAL 40 MG VIAL IV SCH ×2 (11:54→20:31)
[2021-04-19] MEDS: Ondansetron 4 mg VIAL 2 MG/ML 2 ml VIAL IV PRN (12:09)
[2021-04-20] MEDS: Enoxaparin 100 MG/ML SYR SUBCUT SCH ×2 (00:08→12:59)
[2021-04-20] MEDS: Metoclopramide 5 MG/ML VIAL (10 mg) IV PRN ×2 (06:10→15:13)
[2021-04-20] MEDS: HYDROmorphone 0.5 MG/0.5 ML SYRINGE IV SLOW PU PRN ×2 (06:11→15:13)
[2021-04-20 06:26] LABS: ABS Lymphocytes 0.6 10^3/ul (1.0-4.8); ABS Monocytes 0.2 10^3/ul (0-0.8); ABS Neutrophils 3.5 10^3/ul (1.5-7.7); Eosinophil % 0.3 %; Hematocrit 34 % (35-47); Hemoglobin 11.4 g/dL (12.0-16.0); Mean Corpuscular HGB Conc 33 g/dL (31-36); Mean Corpuscular Hemoglobin 33 pg (27-31); Mean Corpuscular Volume 99 fL (80-97); Mean Platelet Volume 6.8 fL (7.4-10.4); Nucleated Red Blood Cells % 0.1; Platelet Count 248 10^3/uL (150-450); Red Blood Count 3.47 10^6 /uL (3.70-4.87); Red Cell Distribution Width 15 % (10-15); White Blood Count 4.3 10^3/uL (3.5-10.8)
[2021-04-20 06:41] LABS: Calcium 7.7 mg/dL (8.6-10.3); Magnesium 1.7 mg/dL (1.9-2.7); Potassium 3.9 mmol/L (3.5-5.0)
[2021-04-20] MEDS: Calcium Carb (TUMS) 500 mg CHEW TAB PO SCH ×3 (09:10→22:48)
[2021-04-20] MEDS: Pantoprazole VIAL 40 MG VIAL IV SCH ×2 (09:11→22:56)
[2021-04-20] MEDS ORDERED: Magnesium Sulfate IV 1GM/100ML 1 GM/100 ML BAG IV ONE (09:29)
[2021-04-21] MEDS: Enoxaparin 100 MG/ML SYR SUBCUT SCH ×2 (01:42→13:09)
[2021-04-21] MEDS: Metoclopramide 5 MG/ML VIAL (10 mg) IV PRN (06:13)
[2021-04-21] MEDS: Pantoprazole VIAL 40 MG VIAL IV SCH (08:54)
[2021-04-21] MEDS: Ondansetron 4 mg VIAL 2 MG/ML 2 ml VIAL IV PRN (08:54)
[2021-04-21] MEDS: Calcium Carb (TUMS) 500 mg CHEW TAB PO SCH ×2 (08:58→13:10)
[2021-04-21 11:12] VITALS: BP 105/73
[2021-04-21 12:27] LABS: ABS Lymphocytes 0.9 10^3/ul (1.0-4.8); ABS Monocytes 0.2 10^3/ul (0-0.8); ABS Neutrophils 2.3 10^3/ul (1.5-7.7); Eosinophil % 0.7 %; Hematocrit 31 % (35-47); Hemoglobin 10.4 g/dL (12.0-16.0); Lymphocyte % 26.6 %; Mean Corpuscular HGB Conc 33 g/dL (31-36); Mean Corpuscular Hemoglobin 33 pg (27-31); Mean Corpuscular Volume 99 fL (80-97); Mean Platelet Volume 7.4 fL (7.4-10.4); Nucleated Red Blood Cells % 0.2; Platelet Count 225 10^3/uL (150-450); Red Blood Count 3.16 10^6 /uL (3.70-4.87); Red Cell Distribution Width 16 % (10-15); White Blood Count 3.5 10^3/uL (3.5-10.8)
[2021-04-21 12:42] LABS: Calcium 7.7 mg/dL (8.6-10.3); Magnesium 1.8 mg/dL (1.9-2.7); Potassium 4.1 mmol/L (3.5-5.0)
== END 2021-04-21 16:10 | disposition home or self-care (01) | DRG 389 ==
LOC: ED 17:07 → MED 17:07 → SUATTDRO 04-15 10:34 → MED 04-15 11:06 → SUATTDRO 04-16 09:45 → MED 04-17 17:15
PROVIDERS: ADMIT Internal Medicine; ATTEND Pediatrics

== ENCOUNTER 2021-05-31 13:05 | Observation (INO) ==
[2021-05-31] MEDS ORDERED: Morphine 4 MG/ML VIAL (1 ml) IV ONE (16:17)
[2021-05-31] MEDS ORDERED: Metoclopramide 5 MG/ML VIAL (10 mg) IV SLOW PU ONE (16:17)
[2021-05-31] MEDS ORDERED: Lactated Ringers 1000 ml BAG 1,000 ML IV ONE (16:17)
[2021-05-31 17:22] LABS: ABS Eosinophils 0.1 10^3/ul (0-0.6); ABS Lymphocytes 2.1 10^3/ul (1.0-4.8); ABS Monocytes 0.2 10^3/ul (0-0.8); ABS Neutrophils 1.1 10^3/ul (1.5-7.7); Eosinophil % 2.1 %; Hematocrit 35 % (35-47); Hemoglobin 11.8 g/dL (12.0-16.0); Lymphocyte % 59.8 %; Mean Corpuscular HGB Conc 34 g/dL (31-36); Mean Corpuscular Hemoglobin 34 pg (27-31); Mean Corpuscular Volume 99 fL (80-97); Mean Platelet Volume 8.1 fL (7.4-10.4); Nucleated Red Blood Cells % 0.2; Platelet Count 209 10^3/uL (150-450); Red Cell Distribution Width 15 % (10-15); White Blood Count 3.4 10^3/uL (3.5-10.8)
[2021-05-31 17:41] LABS: ALT 10 U/L (7-52); AST 17 U/L (13-39); Albumin 2.3 g/dL (3.2-5.2); Albumin/Globulin Ratio 0.9 (1-3); Alkaline Phosphatase 46 U/L (35-149); Anion Gap 3 mmol/L (2-11); Blood Urea Nitrogen 10 mg/dL (6-24); C Reactive Protein < 1.00 mg/L (<8.01); CO2 Carbon Dioxide 27 mmol/L (22-32); Calcium 7.5 mg/dL (8.6-10.3); Chloride 105 mmol/L (101-111); Globulin 2.6 g/dL (2-4); Glucose 64 mg/dL (70-100); Lipase 28 U/L (11.0-82.0); Sodium 135 mmol/L (135-145); Total Protein 4.9 g/dL (6.4-8.9); eGFR CKD-EPI 100.6 (>60)
[2021-05-31 17:48] LABS: HCG Pregnancy 1.52 mIU/mL
[2021-05-31] MEDS ORDERED: Iodixanol (CONTRAST) 320 MG/ML 100 ML SDV IV ONE (18:42)
[2021-05-31] MEDS ORDERED: Potassium Chlor 20 meq TAB.ER PO SCH (23:45)
[2021-05-31] MEDS ORDERED: Enoxaparin 100 MG/ML SYR SUBCUT SCH (23:45)
[2021-06-01 02:14] LABS: Folate > 20.00 ng/mL (5.90-24.80)
[2021-06-01 02:15] LABS: Vitamin B12 534 pg/mL (180-914)
[2021-06-01] MEDS ORDERED: Morphine 2 MG/ML SYRINGE IV ONE (06:02)
[2021-06-01] MEDS: Ondansetron 4 mg VIAL 2 MG/ML 2 ml VIAL IV PRN ×3 (06:18→19:49)
[2021-06-01] MEDS: Enoxaparin 100 MG/ML SYR SUBCUT SCH ×2 (08:10→17:41)
[2021-06-01] MEDS: Potassium Chlor 20 meq TAB.ER PO SCH ×2 (09:13→22:31)
[2021-06-01 10:21] LABS: Hematocrit 34 % (35-47); Hemoglobin 11.4 g/dL (12.0-16.0); Mean Corpuscular HGB Conc 34 g/dL (31-36); Mean Corpuscular Hemoglobin 33 pg (27-31); Mean Corpuscular Volume 99 fL (80-97); Mean Platelet Volume 8.5 fL (7.4-10.4); Platelet Count 201 10^3/uL (150-450); Red Blood Count 3.41 10^6 /uL (3.70-4.87); Red Cell Distribution Width 15 % (10-15); White Blood Count 2.5 10^3/uL (3.5-10.8)
[2021-06-01 10:24] LABS: ABS Eosinophils 0.1 10^3/ul (0-0.6); ABS Lymphocytes 1.2 10^3/ul (1.0-4.8); ABS Monocytes 0.2 10^3/ul (0-0.8); ABS Neutrophils 0.9 10^3/ul (1.5-7.7); Eosinophil % 2.5 %; Lymphocyte % 49.4 %; Nucleated Red Blood Cells % 0.2
[2021-06-01 10:38] LABS: Albumin 2.2 g/dL (3.2-5.2); Albumin/Globulin Ratio 0.9 (1-3); Calcium 7.6 mg/dL (8.6-10.3); Globulin 2.4 g/dL (2-4); Potassium 3.6 mmol/L (3.5-5.0); Total Bilirubin 0.3 mg/dL (0.2-1.0); Total Protein 4.6 g/dL (6.4-8.9); eGFR CKD-EPI 107.5 (>60)
[2021-06-02] MEDS: Enoxaparin 100 MG/ML SYR SUBCUT SCH (05:38)
[2021-06-02 06:02] LABS: Hematocrit 33 % (35-47); Mean Corpuscular HGB Conc 34 g/dL (31-36); Mean Corpuscular Hemoglobin 34 pg (27-31); Mean Corpuscular Volume 99 fL (80-97); Platelet Count 179 10^3/uL (150-450); Red Blood Count 3.28 10^6 /uL (3.70-4.87); Red Cell Distribution Width 15 % (10-15); White Blood Count 2.4 10^3/uL (3.5-10.8)
[2021-06-02 06:04] LABS: ABS Eosinophils 0.1 10^3/ul (0-0.6); ABS Lymphocytes 1.4 10^3/ul (1.0-4.8); ABS Monocytes 0.3 10^3/ul (0-0.8); ABS Neutrophils 0.7 10^3/ul (1.5-7.7); Eosinophil % 2.6 %; Lymphocyte % 58.5 %; Nucleated Red Blood Cells % 0.1
[2021-06-02] MEDS: Potassium Chlor 20 meq TAB.ER PO SCH (08:39)
[2021-06-02 11:25] VITALS: BP 97/60
== END 2021-06-02 16:00 | disposition home or self-care (01) ==
LOC: ED 13:05 → SSU 13:05 → SUATTDRO 22:54 → SSU 06-01 02:00
PROVIDERS: ADMIT Internal Medicine; ATTEND Internal Medicine

== ENCOUNTER 2022-01-30 21:01 | Inpatient (IN) ==
[2022-01-30] MEDS ORDERED: Ondansetron 4 mg VIAL 2 MG/ML 2 ml VIAL IV ONE (23:16)
[2022-01-30] MEDS ORDERED: NS 0.9% 1000 ml BAG 1,000 ML IV ONE (23:16)
[2022-01-30] MEDS ORDERED: Pantoprazole VIAL 40 MG VIAL IV ONE (23:17)
[2022-01-31] MEDS ORDERED: Ondansetron ODT 4 mg TAB 4 MG TAB PO ONE (00:29)
[2022-01-31] MEDS ORDERED: Morphine 10 MG/ML VIAL (1 ml) IM PRN (00:37)
[2022-01-31 01:17] LABS: ABS Lymphocytes 1.8 10^3/ul (1.0-4.8); ABS Monocytes 0.2 10^3/ul (0-0.8); ABS Neutrophils 1.6 10^3/ul (1.5-7.7); Eosinophil % 1.1 %; Hematocrit 36 % (35-47); Hemoglobin 11.8 g/dL (12.0-16.0); Lymphocyte % 49.3 %; Mean Corpuscular HGB Conc 33 g/dL (31-36); Mean Corpuscular Hemoglobin 35 pg (27-31); Mean Corpuscular Volume 106 fL (80-97); Mean Platelet Volume 7.5 fL (7.4-10.4); Nucleated Red Blood Cells % 0.2; Platelet Count 232 10^3/uL (150-450); Red Blood Count 3.36 10^6 /uL (3.70-4.87); Red Cell Distribution Width 17 % (10-15); White Blood Count 3.7 10^3/uL (3.5-10.8)
[2022-01-31 01:39] LABS: ALT 28 U/L (7-52); AST 36 U/L (13-39); Albumin 2.4 g/dL (3.2-5.2); Albumin/Globulin Ratio 0.8 (1-3); Alkaline Phosphatase 86 U/L (35-149); Anion Gap 9 mmol/L (2-11); Blood Urea Nitrogen 14 mg/dL (6-24); C Reactive Protein < 1.00 mg/L (<8.01); CO2 Carbon Dioxide 23 mmol/L (22-32); Calcium 7.7 mg/dL (8.6-10.3); Chloride 108 mmol/L (101-111); Globulin 3.2 g/dL (2-4); Glucose 93 mg/dL (70-100); Lipase 12 U/L (11.0-82.0); Magnesium 1.4 mg/dL (1.9-2.7); Sodium 140 mmol/L (135-145); Total Protein 5.6 g/dL (6.4-8.9); Valproic Acid < 13.0 mcg/mL (50-100); eGFR CKD-EPI 109.8 (>60)
[2022-01-31 01:54] LABS: TSH Ultra Thyroid Stim Horm 6.52 mcIU/mL (0.34-5.60)
[2022-01-31] MEDS ORDERED: Metoclopramide 5 MG/ML VIAL (10 mg) IM ONE (02:24)
[2022-01-31] MEDS: Morphine 4 MG/ML VIAL (1 ml) IV PRN ×3 (03:58→09:11)
[2022-01-31] MEDS ORDERED: Magnesium Sulfate IV 1GM/100ML 1 GM/100 ML BAG IV ONE (06:36)
[2022-01-31] MEDS ORDERED: KCL 10 MEQ/50 ML IVPREMIX 10 MEQ/50 ML BAG IV ONE (06:36)
[2022-01-31] MEDS ORDERED: Prochlorperazine 5 mg/ml 2 ml VIAL (10 mg) IV ONE (06:37)
[2022-01-31 07:20] LABS: HCG Pregnancy 0.98 mIU/mL
[2022-01-31] MEDS ORDERED: NS 0.9% 1000 ml BAG 1,000 ML IV ONE (08:39)
[2022-01-31] MEDS ORDERED: Lactated Ringers 1000 ml BAG 1,000 ML IV ONE (08:41)
[2022-01-31] MEDS: KCL 10 MEQ/50 ML IVPREMIX 10 MEQ/50 ML BAG IV SCH ×2 (09:10→10:13)
[2022-01-31] MEDS ORDERED: Magnesium Sulfate 2 gm BAG 2 GM/50 ML BAG IVPB ONE (10:14)
[2022-01-31] MEDS ORDERED: PEG 3000 GI LAVAGE 1 GALLON PO ONE (11:05)
[2022-01-31 11:51] LABS: Urine Appearance Clear; Urine Bilirubin Negative (Negative); Urine Blood Trace (Intact) (Negative); Urine Color Yellow; Urine Glucose Negative (Negative); Urine Ketones Negative (Negative); Urine Nitrite Negative (Negative); Urine Protein Negative (Negative); Urine Urobilinogen 1.0 (Negative) (Negative)
[2022-01-31 12:01] LABS: Urine Bacteria Absent (Absent); Urine Red Blood Cell 2+(6-10/hpf) (Absent); Urine Squamous Epithelial Cell Present (Absent); Urine White Blood Cell 2+(11-20/hpf) (Absent)
[2022-01-31] MEDS: Enoxaparin 80 MG/0.8 ML SYR SUBCUT SCH ×2 (12:29→22:15)
[2022-01-31] MEDS: Ondansetron 4 mg VIAL 2 MG/ML 2 ml VIAL IV PRN ×2 (12:31→22:15)
[2022-01-31] MEDS: diazePAM INJ CARPUJECT 5 MG/ML SYRINGE IV PRN ×2 (12:31→22:15)
[2022-01-31] MEDS: Morphine 2 MG/ML SYRINGE IV PRN ×3 (13:30→22:15)
[2022-01-31 15:55] LABS: INR 1.08 (0.89-1.11)
[2022-02-01] MEDS: Morphine 2 MG/ML SYRINGE IV PRN ×2 (03:22→09:11)
[2022-02-01 06:26] LABS: ABS Neutrophils 0.7 10^3/ul (1.5-7.7); Hematocrit 28 % (35-47); Hemoglobin 9.4 g/dL (12.0-16.0); Mean Corpuscular HGB Conc 34 g/dL (31-36); Mean Corpuscular Hemoglobin 36 pg (27-31); Mean Corpuscular Volume 107 fL (80-97); Mean Platelet Volume 8.2 fL (7.4-10.4); Platelet Count 182 10^3/uL (150-450); Red Blood Count 2.58 10^6 /uL (3.70-4.87); Red Cell Distribution Width 18 % (10-15); White Blood Count 2.8 10^3/uL (3.5-10.8)
[2022-02-01 06:32] LABS: Magnesium 1.5 mg/dL (1.9-2.7); Potassium 3.3 mmol/L (3.5-5.0); eGFR CKD-EPI 115.1 (>60)
[2022-02-01] MEDS ORDERED: KCL 20 MEQ/100 ML IVPREMIX 20 MEQ/100 ML BAG IV ONE (08:14)
[2022-02-01] MEDS ORDERED: Magnesium Sulfate 2 gm BAG 2 GM/50 ML BAG IVPB ONE (08:14)
[2022-02-01] MEDS ORDERED: Lactated Ringers 1000 ml BAG 1,000 ML IV SCH (09:00)
[2022-02-01] MEDS: Ondansetron 4 mg VIAL 2 MG/ML 2 ml VIAL IV PRN ×2 (09:01→20:00)
[2022-02-01] MEDS ORDERED: PEG 3000 GI LAVAGE 1 GALLON PO ONE (09:14)
[2022-02-01 09:35] LABS: ABS Eosinophils 0.1 10^3/ul (0-0.6); ABS Lymphocytes 1.8 10^3/ul (1.0-4.8); ABS Monocytes 0.2 10^3/ul (0-0.8); Nucleated Red Blood Cells % 0.1
[2022-02-01] MEDS: Enoxaparin 80 MG/0.8 ML SYR SUBCUT SCH ×2 (11:50→22:48)
[2022-02-01 12:35] LABS: Free T4 0.77 ng/dL (0.61-1.12)
[2022-02-01] MEDS: Acetaminophen IV 1 GM/100ML 100 ML IV PRN (15:39)
[2022-02-02] MEDS: Enoxaparin 80 MG/0.8 ML SYR SUBCUT SCH ×2 (09:05→23:39)
[2022-02-02] MEDS: Acetaminophen IV 1 GM/100ML 100 ML IV PRN ×2 (11:38→23:36)
[2022-02-02] MEDS: Ondansetron 4 mg VIAL 2 MG/ML 2 ml VIAL IV PRN (11:38)
[2022-02-02 12:14] LABS: ABS Lymphocytes 0.9 10^3/ul (1.0-4.8); ABS Monocytes 0.1 10^3/ul (0-0.8); ABS Neutrophils 1.9 10^3/ul (1.5-7.7); Hematocrit 28 % (35-47); Hemoglobin 9.1 g/dL (12.0-16.0); Lymphocyte % 29.5 %; Mean Corpuscular HGB Conc 33 g/dL (31-36); Mean Corpuscular Hemoglobin 35 pg (27-31); Mean Corpuscular Volume 107 fL (80-97); Mean Platelet Volume 8.1 fL (7.4-10.4); Nucleated Red Blood Cells % 0.1; Platelet Count 184 10^3/uL (150-450); Red Blood Count 2.62 10^6 /uL (3.70-4.87); Red Cell Distribution Width 17 % (10-15)
[2022-02-02 12:41] LABS: Calcium 7.1 mg/dL (8.6-10.3); Magnesium 1.3 mg/dL (1.9-2.7); Potassium 3.5 mmol/L (3.5-5.0); eGFR CKD-EPI 115.1 (>60)
[2022-02-02] MEDS ORDERED: Magnesium Sulfate 2 gm BAG 2 GM/50 ML BAG IVPB ONE (13:22)
[2022-02-03] MEDS: Enoxaparin 80 MG/0.8 ML SYR SUBCUT SCH ×2 (09:40→22:37)
[2022-02-03 10:48] LABS: Calcium 7.1 mg/dL (8.6-10.3); Magnesium 1.4 mg/dL (1.9-2.7); Potassium 3.8 mmol/L (3.5-5.0); eGFR CKD-EPI 112.3 (>60)
[2022-02-03] MEDS: Acetaminophen IV 1 GM/100ML 100 ML IV PRN (10:59)
[2022-02-03] MEDS: Ondansetron 4 mg VIAL 2 MG/ML 2 ml VIAL IV PRN ×2 (11:08→18:19)
[2022-02-03] MEDS ORDERED: Magnesium Sulf 4 GM/100 ML IV 4,000 MG/100 ML BAG IVPB ONE (15:41)
[2022-02-04] MEDS: Ondansetron 4 mg VIAL 2 MG/ML 2 ml VIAL IV PRN (11:33)
[2022-02-04] MEDS: Enoxaparin 80 MG/0.8 ML SYR SUBCUT SCH (11:33)
[2022-02-04] MEDS: Acetaminophen IV 1 GM/100ML 100 ML IV PRN (11:33)
[2022-02-04 13:01] LABS: Calcium 7.1 mg/dL (8.6-10.3); Magnesium 1.6 mg/dL (1.9-2.7); eGFR CKD-EPI 119.6 (>60)
[2022-02-04] MEDS ORDERED: Magnesium Sulfate 2 gm BAG 2 GM/50 ML BAG IVPB ONE (13:19)
[2022-02-04] MEDS: Metoclopramide 5 MG/ML VIAL (10 mg) IV SLOW PU PRN (17:59)
[2022-02-05] MEDS: Metoclopramide 5 MG/ML VIAL (10 mg) IV SLOW PU PRN (09:31)
[2022-02-05] MEDS: Acetaminophen IV 1 GM/100ML 100 ML IV PRN (09:32)
[2022-02-05 10:44] LABS: Rapid COVID-19 Molecular Undetected (Undetected)
[2022-02-05] MEDS ORDERED: Morphine 2 MG/ML SYRINGE ONE ×2 (13:40→14:37)
[2022-02-05] MEDS ORDERED: Midazolam 2 mg/2 ml VIAL 1 mg/ml 2 ml VIAL (2 mg) ONE (13:40)
[2022-02-05] MEDS ORDERED: ceFAZolin 1 GM X ONE DOSE (AddVan) IVPB (14:00)
[2022-02-05] MEDS ORDERED: Morphine 2 MG/ML SYRINGE IV ONE (16:00)
[2022-02-05 18:33] VITALS: BP 135/83
== END 2022-02-05 19:15 | disposition home or self-care (01) | DRG 356 ==
LOC: EDHOLD 21:01 → ED 21:01 → SUATTDRO 01-31 10:10 → EDHOLD 01-31 11:18 → MED 01-31 11:42 → SUATTDRO 02-01 15:01 → MED 02-04 17:59
PROVIDERS: ADMIT Hospitalist; ATTEND Hospitalist

== ENCOUNTER 2022-02-09 12:50 | Inpatient (IN) ==
[2022-02-09] MEDS ORDERED: Ondansetron ODT 4 mg TAB 4 MG TAB PO ONE (16:02)
[2022-02-09 17:57] LABS: Hematocrit 27 % (35-47); Hemoglobin 8.8 g/dL (12.0-16.0); Mean Corpuscular HGB Conc 32 g/dL (31-36); Mean Corpuscular Hemoglobin 34 pg (27-31); Mean Corpuscular Volume 105 fL (80-97); Mean Platelet Volume 8.3 fL (7.4-10.4); Platelet Count 174 10^3/uL (150-450); Red Cell Distribution Width 17 % (10-15); White Blood Count 2.6 10^3/uL (3.5-10.8)
[2022-02-09] MEDS ORDERED: Ondansetron 4 mg VIAL 2 MG/ML 2 ml VIAL IV ONE (17:57)
[2022-02-09] MEDS ORDERED: NS 0.9% 1000 ml BAG 1,000 ML IV ONE (17:57)
[2022-02-09 18:22] LABS: ABS Lymphocytes 1.6 10^3/ul (1.0-4.8); ABS Monocytes 0.2 10^3/ul (0-0.8); ABS Neutrophils 0.8 10^3/ul (1.5-7.7); Eosinophil % 1.4 %; Lymphocyte % 60.1 %; Nucleated Red Blood Cells % 0.2
[2022-02-09 18:59] LABS: Albumin 1.8 g/dL (3.2-5.2); Albumin/Globulin Ratio 0.8 (1-3); Globulin 2.2 g/dL (2-4); Total Bilirubin 0.7 mg/dL (0.2-1.0); eGFR CKD-EPI 114.1 (>60)
[2022-02-09 19:08] LABS: Potassium 2.6 mmol/L (3.5-5.0)
[2022-02-09] MEDS ORDERED: Iohexol 350 (CONTRAST) 500 ML MDV IV ONE (19:08)
[2022-02-09 19:09] LABS: Calcium 6.4 mg/dL (8.6-10.3)
[2022-02-09] MEDS: Potassium EFFERVES 25 meq TAB PO ONE ×2 (19:34→20:15)
[2022-02-09] MEDS ORDERED: Droperidol 5 MG/2 ML 2 ML VIAL IV ONE (19:36)
[2022-02-09] MEDS: KCL 20 MEQ/100 ML IVPREMIX 20 MEQ/100 ML BAG IV SCH ×2 (20:51→23:12)
[2022-02-09 21:36] LABS: Magnesium 1.1 mg/dL (1.9-2.7)
[2022-02-09] MEDS ORDERED: Magnesium Sulfate 2 gm BAG 2 GM/50 ML BAG IVPB ONE (22:24)
[2022-02-09] MEDS ORDERED: Ondansetron 4 mg VIAL 2 MG/ML 2 ml VIAL IV PRN (22:27)
[2022-02-09] MEDS: Morphine 2 MG/ML SYRINGE IV PRN (23:03)
[2022-02-09 23:39] LABS: Urine Appearance Clear; Urine Bilirubin Negative (Negative); Urine Blood Negative (Negative); Urine Color Yellow; Urine Glucose Negative (Negative); Urine Ketones Negative (Negative); Urine Nitrite Negative (Negative); Urine Protein Negative (Negative); Urine pH 5.5 (5.0-9.0)
[2022-02-09 23:49] LABS: Urine Urobilinogen 1.0 (Negative) (Negative)
[2022-02-09] MEDS ORDERED: OLANZapine 10 mg TAB*ODT PO PRN (23:51)
[2022-02-10 00:11] LABS: Urine Bacteria Absent (Absent); Urine Red Blood Cell Trace(0-2/hpf) (Absent); Urine Squamous Epithelial Cell Present (Absent); Urine White Blood Cell Trace(0-5/hpf) (Absent)
[2022-02-10] MEDS: Enoxaparin 80 MG/0.8 ML SYR SUBCUT SCH ×3 (00:17→23:15)
[2022-02-10] MEDS ORDERED: Lactated Ringers 1000 ml BAG 1,000 ML IV SCH (01:00)
[2022-02-10] MEDS ORDERED: D5W 1/2 NS 1000 ml BAG 1,000 ML IV SCH (01:00)
[2022-02-10] MEDS: KCL 20 MEQ/100 ML IVPREMIX 20 MEQ/100 ML BAG IV SCH (01:27)
[2022-02-10] MEDS ORDERED: Magnesium Sulfate 2 gm BAG 2 GM/50 ML BAG IVPB ONE (01:48)
[2022-02-10 02:02] LABS: Potassium 3.6 mmol/L (3.5-5.0); eGFR CKD-EPI 113.2 (>60)
[2022-02-10 02:04] LABS: Calcium 6.4 mg/dL (8.6-10.3)
[2022-02-10] MEDS ORDERED: Pantoprazole VIAL 40 MG VIAL IV ONE (02:17)
[2022-02-10 02:26] LABS: Magnesium 1.9 mg/dL (1.9-2.7)
[2022-02-10] MEDS: Morphine 2 MG/ML SYRINGE IV PRN ×5 (04:53→22:17)
[2022-02-10 05:07] LABS: ABS Lymphocytes 1.3 10^3/ul (1.0-4.8); ABS Monocytes 0.2 10^3/ul (0-0.8); ABS Neutrophils 0.8 10^3/ul (1.5-7.7); Eosinophil % 1.9 %; Hematocrit 26 % (35-47); Hemoglobin 9.1 g/dL (12.0-16.0); Lymphocyte % 54.1 %; Mean Corpuscular HGB Conc 35 g/dL (31-36); Mean Corpuscular Hemoglobin 36 pg (27-31); Mean Corpuscular Volume 106 fL (80-97); Mean Platelet Volume 8.1 fL (7.4-10.4); Nucleated Red Blood Cells % 0.1; Platelet Count 164 10^3/uL (150-450); Red Blood Count 2.49 10^6 /uL (3.70-4.87); Red Cell Distribution Width 18 % (10-15); White Blood Count 2.4 10^3/uL (3.5-10.8)
[2022-02-10 05:45] LABS: Calcium 6.5 mg/dL (8.6-10.3); Magnesium 2.2 mg/dL (1.9-2.7); Potassium 3.5 mmol/L (3.5-5.0); eGFR CKD-EPI 112.7 (>60)
[2022-02-10] MEDS: Pantoprazole VIAL 40 MG VIAL IV SCH ×2 (08:41→20:16)
[2022-02-10] MEDS: Potassium Chlor 20 meq TAB.ER PO SCH ×2 (08:42→20:16)
[2022-02-10 10:18] LABS: Phosphorus 3.8 mg/dL (2.5-5.0)
[2022-02-10] MEDS ORDERED: Potassium Chlor 20 meq TAB.ER PO ONE ×2 (17:28→17:30)
[2022-02-10] MEDS: Cholecalciferol (VIT D3) 1,000 unit TAB PO SCH (20:58)
[2022-02-11] MEDS: Morphine 2 MG/ML SYRINGE IV PRN ×5 (04:10→21:08)
[2022-02-11 06:39] LABS: ABS Lymphocytes 0.9 10^3/ul (1.0-4.8); ABS Monocytes 0.2 10^3/ul (0-0.8); ABS Neutrophils 1.6 10^3/ul (1.5-7.7); Eosinophil % 0.9 %; Hematocrit 28 % (35-47); Hemoglobin 9.4 g/dL (12.0-16.0); Lymphocyte % 32.8 %; Mean Corpuscular HGB Conc 34 g/dL (31-36); Mean Corpuscular Hemoglobin 36 pg (27-31); Mean Corpuscular Volume 106 fL (80-97); Mean Platelet Volume 8.3 fL (7.4-10.4); Nucleated Red Blood Cells % 0.2; Platelet Count 156 10^3/uL (150-450); Red Blood Count 2.61 10^6 /uL (3.70-4.87); Red Cell Distribution Width 18 % (10-15); White Blood Count 2.7 10^3/uL (3.5-10.8)
[2022-02-11] MEDS ORDERED: Potassium Chlor 20 meq TAB.ER PO ONE (07:12)
[2022-02-11 07:36] LABS: Calcium 7.1 mg/dL (8.6-10.3); Potassium 4.1 mmol/L (3.5-5.0); eGFR CKD-EPI 119.6 (>60)
[2022-02-11] MEDS: Cholecalciferol (VIT D3) 1,000 unit TAB PO SCH (07:38)
[2022-02-11] MEDS: Potassium Chlor 20 meq TAB.ER PO SCH ×2 (07:39→21:08)
[2022-02-11] MEDS: Pantoprazole VIAL 40 MG VIAL IV SCH ×2 (07:39→21:07)
[2022-02-11] MEDS: Enoxaparin 80 MG/0.8 ML SYR SUBCUT SCH ×2 (12:33→23:32)
[2022-02-12] MEDS: Morphine 2 MG/ML SYRINGE IV PRN ×4 (04:22→19:35)
[2022-02-12 05:28] LABS: Hematocrit 27 % (35-47); Hemoglobin 9.3 g/dL (12.0-16.0); Mean Corpuscular HGB Conc 35 g/dL (31-36); Mean Corpuscular Hemoglobin 37 pg (27-31); Mean Corpuscular Volume 106 fL (80-97); Mean Platelet Volume 8.8 fL (7.4-10.4); Platelet Count 167 10^3/uL (150-450); Red Blood Count 2.51 10^6 /uL (3.70-4.87); Red Cell Distribution Width 17 % (10-15); White Blood Count 2.3 10^3/uL (3.5-10.8)
[2022-02-12 06:08] LABS: ABS Lymphocytes 1.4 10^3/ul (1.0-4.8); ABS Monocytes 0.2 10^3/ul (0-0.8); ABS Neutrophils 0.7 10^3/ul (1.5-7.7); Lymphocyte % 59.8 %; Nucleated Red Blood Cells % 0.1
[2022-02-12 06:15] LABS: Calcium 7.3 mg/dL (8.6-10.3); Magnesium 1.4 mg/dL (1.9-2.7); Phosphorus 2.9 mg/dL (2.5-5.0); Potassium 4.8 mmol/L (3.5-5.0); eGFR CKD-EPI 117.2 (>60)
[2022-02-12] MEDS ORDERED: Magnesium Sulf 4 GM/100 ML IV 4,000 MG/100 ML BAG IVPB ONE (06:57)
[2022-02-12] MEDS: Magnesium Sulfate 2 GM IV (Premix) IVPB SCH ×2 (08:32→10:05)
[2022-02-12] MEDS: Pantoprazole VIAL 40 MG VIAL IV SCH ×2 (08:37→20:38)
[2022-02-12] MEDS: Cholecalciferol (VIT D3) 1,000 unit TAB PO SCH (08:38)
[2022-02-12] MEDS: Potassium Chlor 20 meq TAB.ER PO SCH ×2 (08:38→20:37)
[2022-02-12] MEDS ORDERED: Morphine 2 MG/ML SYRINGE IV PRN (08:57)
[2022-02-12] MEDS: Enoxaparin 80 MG/0.8 ML SYR SUBCUT SCH ×2 (12:27→23:34)
[2022-02-13] MEDS: Morphine 2 MG/ML SYRINGE IV PRN ×2 (01:54→08:28)
[2022-02-13 05:52] LABS: Calcium 7.5 mg/dL (8.6-10.3); Magnesium 1.6 mg/dL (1.9-2.7); Potassium 4.6 mmol/L (3.5-5.0); eGFR CKD-EPI 114.6 (>60)
[2022-02-13 06:24] LABS: ABS Lymphocytes 1.4 10^3/ul (1.0-4.8); ABS Monocytes 0.3 10^3/ul (0-0.8); ABS Neutrophils 1.3 10^3/ul (1.5-7.7); Eosinophil % 0.9 %; Hematocrit 28 % (35-47); Hemoglobin 9.6 g/dL (12.0-16.0); Lymphocyte % 45.7 %; Mean Corpuscular HGB Conc 34 g/dL (31-36); Mean Corpuscular Hemoglobin 36 pg (27-31); Mean Corpuscular Volume 106 fL (80-97); Mean Platelet Volume 9.2 fL (7.4-10.4); Nucleated Red Blood Cells % 0.1; Platelet Count 188 10^3/uL (150-450); Red Blood Count 2.63 10^6 /uL (3.70-4.87); Red Cell Distribution Width 17 % (10-15)
[2022-02-13] MEDS ORDERED: Magnesium Sulf 4 GM/100 ML IV 4,000 MG/100 ML BAG IVPB ONE (06:45)
[2022-02-13] MEDS: Pantoprazole VIAL 40 MG VIAL IV SCH (08:27)
[2022-02-13] MEDS: Cholecalciferol (VIT D3) 1,000 unit TAB PO SCH (08:28)
[2022-02-13] MEDS: Potassium Chlor 20 meq TAB.ER PO SCH (08:28)
[2022-02-13] MEDS: Enoxaparin 80 MG/0.8 ML SYR SUBCUT SCH (11:59)
[2022-02-13] MEDS ORDERED: oxyCODONE SR 10 mg TAB PO SCH (14:30)
[2022-02-13 15:25] VITALS: BP 101/70
== END 2022-02-13 18:30 | disposition home or self-care (01) | DRG 392 ==
LOC: EDHOLD 12:50 → ED 12:50 → SUATTDRO 22:17 → MED 02-10 19:48
PROVIDERS: ADMIT Internal Medicine; ATTEND Internal Medicine

== ENCOUNTER 2022-03-29 13:33 | Inpatient (IN) ==
[2022-03-29] MEDS ORDERED: Ondansetron 4 mg VIAL 2 MG/ML 2 ml VIAL IV ONE ×2 (20:20→23:45)
[2022-03-29] MEDS ORDERED: Morphine 4 MG/ML VIAL (1 ml) IV ONE (20:20)
[2022-03-29] MEDS ORDERED: NS 0.9% 1000 ml BAG 1,000 ML IV ONE (20:20)
[2022-03-29 20:22] LABS: ABS Basophils 0.1 10^3/ul (0-0.2); ABS Eosinophils 0.1 10^3/ul (0-0.6); ABS Lymphocytes 1.7 10^3/ul (1.0-4.8); ABS Monocytes 0.3 10^3/ul (0-0.8); ABS Neutrophils 1.8 10^3/ul (1.5-7.7); Eosinophil % 1.8 %; Hematocrit 28 % (35-47); Hemoglobin 9.1 g/dL (12.0-16.0); Lymphocyte % 42.8 %; Mean Corpuscular HGB Conc 33 g/dL (31-36); Mean Corpuscular Hemoglobin 34 pg (27-31); Mean Corpuscular Volume 104 fL (80-97); Mean Platelet Volume 8.5 fL (7.4-10.4); Platelet Count 285 10^3/uL (150-450); Red Blood Count 2.65 10^6 /uL (3.70-4.87); Red Cell Distribution Width 18 % (10-15)
[2022-03-29 21:05] LABS: Activated Partial Thrombo Time 35.1 seconds (26.0-38.0); INR 1.12 (0.89-1.11)
[2022-03-29 21:16] LABS: ALT 77 U/L (7-52); AST 69 U/L (13-39); Albumin 2.2 g/dL (3.2-5.2); Albumin/Globulin Ratio 0.7 (1-3); Alkaline Phosphatase 124 U/L (35-149); Blood Urea Nitrogen 8 mg/dL (6-24); CO2 Carbon Dioxide 22 mmol/L (22-32); Calcium 7.4 mg/dL (8.6-10.3); Globulin 3.1 g/dL (2-4); Glucose 82 mg/dL (70-100); Lipase < 10 U/L (11.0-82.0); Sodium 145 mmol/L (135-145); Total Protein 5.3 g/dL (6.4-8.9); eGFR CKD-EPI 116.7 (>60)
[2022-03-29 21:27] LABS: Chloride 112 mmol/L (101-111)
[2022-03-29] MEDS ORDERED: Iohexol 350 (CONTRAST) 500 ML MDV IV ONE (21:27)
[2022-03-29 21:36] LABS: Anion Gap 11 mmol/L (2-11); Potassium 2.7 mmol/L (3.5-5.0)
[2022-03-29] MEDS ORDERED: Lactated Ringers 1000 ml BAG 1,000 ML IV ONE (21:43)
[2022-03-29] MEDS: KCL 20 MEQ/100 ML IVPREMIX 20 MEQ/100 ML BAG IV SCH (22:29)
[2022-03-29 22:35] LABS: Magnesium 1.4 mg/dL (1.9-2.7)
[2022-03-29] MEDS ORDERED: Magnesium Sulfate 2 gm BAG 2 GM/50 ML BAG IVPB ONE (22:56)
[2022-03-29] MEDS ORDERED: Magnesium Sulfate IV 1GM/100ML 1 GM/100 ML BAG IV ONE (23:34)
[2022-03-30] MEDS ORDERED: Morphine 2 MG/ML SYRINGE IV PRN (00:45)
[2022-03-30] MEDS: KCL 20 MEQ/100 ML IVPREMIX 20 MEQ/100 ML BAG IV SCH ×3 (01:33→12:15)
[2022-03-30] MEDS: Acetaminophen IV 1 GM/100ML 1,000 MG/100 ML BAG IV PRN ×2 (03:40→16:54)
[2022-03-30] MEDS: Cholecalciferol (VIT D3) 1,000 unit TAB PO SCH (08:28)
[2022-03-30 08:29] LABS: ABS Eosinophils 0.1 10^3/ul (0-0.6); ABS Lymphocytes 0.9 10^3/ul (1.0-4.8); ABS Monocytes 0.3 10^3/ul (0-0.8); ABS Neutrophils 1.7 10^3/ul (1.5-7.7); Hematocrit 24 % (35-47); Hemoglobin 8.1 g/dL (12.0-16.0); Lymphocyte % 31.1 %; Mean Corpuscular HGB Conc 33 g/dL (31-36); Mean Corpuscular Hemoglobin 35 pg (27-31); Mean Corpuscular Volume 105 fL (80-97); Mean Platelet Volume 8.5 fL (7.4-10.4); Nucleated Red Blood Cells % 0.1; Platelet Count 253 10^3/uL (150-450); Red Blood Count 2.31 10^6 /uL (3.70-4.87); Red Cell Distribution Width 19 % (10-15)
[2022-03-30] MEDS: NS 0.9% 1000 ml BAG 1,000 ML IV SCH (08:35)
[2022-03-30 09:07] LABS: Calcium 6.8 mg/dL (8.6-10.3); Magnesium 2.2 mg/dL (1.9-2.7); Potassium 3.2 mmol/L (3.5-5.0); eGFR CKD-EPI 116.7 (>60)
[2022-03-30] MEDS ORDERED: Glycerin ADULT 2.4 gm SUPP PR ONE (15:48)
[2022-03-30] MEDS: Morphine 2 MG/ML SYRINGE IV PRN (16:54)
[2022-03-30 17:12] LABS: ABS Eosinophils 0.1 10^3/ul (0-0.6); ABS Lymphocytes 1.4 10^3/ul (1.0-4.8); ABS Monocytes 0.3 10^3/ul (0-0.8); ABS Neutrophils 2.1 10^3/ul (1.5-7.7); Eosinophil % 2.4 %; Hematocrit 28 % (35-47); Hemoglobin 8.8 g/dL (12.0-16.0); Lymphocyte % 35.6 %; Mean Corpuscular HGB Conc 31 g/dL (31-36); Mean Corpuscular Hemoglobin 33 pg (27-31); Mean Corpuscular Volume 106 fL (80-97); Mean Platelet Volume 8.2 fL (7.4-10.4); Nucleated Red Blood Cells % 0.1; Platelet Count 285 10^3/uL (150-450); Red Blood Count 2.65 10^6 /uL (3.70-4.87); Red Cell Distribution Width 19 % (10-15); White Blood Count 3.9 10^3/uL (3.5-10.8)
[2022-03-30] MEDS: Polyethylene Glycol 3350 17 GM PACKET PO SCH (17:15)
[2022-03-30 17:50] LABS: Magnesium 1.8 mg/dL (1.9-2.7); Potassium 3.9 mmol/L (3.5-5.0); eGFR CKD-EPI 117.2 (>60)
[2022-03-30] MEDS ORDERED: Magnesium Sulfate 2 gm BAG 2 GM/50 ML BAG IVPB ONE (18:00)
[2022-03-30] MEDS: Enoxaparin 80 MG/0.8 ML SYR SUBCUT SCH (21:19)
[2022-03-31] MEDS: NS 0.9% 1000 ml BAG 1,000 ML IV SCH (00:18)
[2022-03-31] MEDS: Morphine 2 MG/ML SYRINGE IV PRN (01:24)
[2022-03-31] MEDS: Acetaminophen IV 1 GM/100ML 1,000 MG/100 ML BAG IV PRN (01:24)
[2022-03-31 05:08] LABS: ABS Eosinophils 0.1 10^3/ul (0-0.6); ABS Lymphocytes 1.4 10^3/ul (1.0-4.8); ABS Monocytes 0.3 10^3/ul (0-0.8); ABS Neutrophils 1.2 10^3/ul (1.5-7.7); Eosinophil % 2.2 %; Hematocrit 25 % (35-47); Hemoglobin 7.7 g/dL (12.0-16.0); Lymphocyte % 46.5 %; Mean Corpuscular HGB Conc 31 g/dL (31-36); Mean Corpuscular Hemoglobin 33 pg (27-31); Mean Corpuscular Volume 106 fL (80-97); Mean Platelet Volume 8.1 fL (7.4-10.4); Nucleated Red Blood Cells % 0.2; Platelet Count 242 10^3/uL (150-450); Red Blood Count 2.32 10^6 /uL (3.70-4.87); Red Cell Distribution Width 19 % (10-15)
[2022-03-31 05:39] LABS: Calcium 6.8 mg/dL (8.6-10.3); Magnesium 1.9 mg/dL (1.9-2.7); Potassium 3.8 mmol/L (3.5-5.0); eGFR CKD-EPI 121.5 (>60)
[2022-03-31] MEDS ORDERED: Lactated Ringers 1000 ml BAG 1,000 ML IV ONE (07:34)
[2022-03-31] MEDS: Cholecalciferol (VIT D3) 1,000 unit TAB PO SCH (08:50)
[2022-03-31] MEDS: Enoxaparin 80 MG/0.8 ML SYR SUBCUT SCH ×2 (10:35→21:09)
[2022-03-31] MEDS: Polyethylene Glycol 3350 17 GM PACKET PO SCH (10:35)
[2022-03-31 18:52] LABS: Ferritin 356.3 ng/mL (11-307)
[2022-03-31] MEDS: Magnesium Hydroxide LIQ 30 ML UDC PO SCH (21:09)
[2022-03-31] MEDS: Senna TAB 8.6 mg TAB PO PRN (21:11)
[2022-04-01] MEDS: OLANZapine 10 mg TAB*ODT PO PRN (01:23)
[2022-04-01 06:01] LABS: ABS Eosinophils 0.1 10^3/ul (0-0.6); ABS Lymphocytes 1.7 10^3/ul (1.0-4.8); ABS Monocytes 0.3 10^3/ul (0-0.8); ABS Neutrophils 1.2 10^3/ul (1.5-7.7); Eosinophil % 1.7 %; Hematocrit 25 % (35-47); Lymphocyte % 51.4 %; Mean Corpuscular HGB Conc 33 g/dL (31-36); Mean Corpuscular Hemoglobin 35 pg (27-31); Mean Corpuscular Volume 106 fL (80-97); Mean Platelet Volume 8.5 fL (7.4-10.4); Nucleated Red Blood Cells % 0.1; Platelet Count 251 10^3/uL (150-450); Red Blood Count 2.32 10^6 /uL (3.70-4.87); Red Cell Distribution Width 19 % (10-15); White Blood Count 3.2 10^3/uL (3.5-10.8)
[2022-04-01 06:15] LABS: Magnesium 1.5 mg/dL (1.9-2.7); Potassium 3.9 mmol/L (3.5-5.0); eGFR CKD-EPI 126.7 (>60)
[2022-04-01] MEDS ORDERED: Magnesium Sulfate IV 3 GM in NS 0.9% 100 ml BAG 100 ML IVPB ONE (07:12)
[2022-04-01] MEDS: Cholecalciferol (VIT D3) 1,000 unit TAB PO SCH (10:40)
[2022-04-01] MEDS: Magnesium Hydroxide LIQ 30 ML UDC PO SCH ×2 (10:41→21:04)
[2022-04-01] MEDS: Polyethylene Glycol 3350 17 GM PACKET PO SCH (10:42)
[2022-04-01] MEDS: Enoxaparin 80 MG/0.8 ML SYR SUBCUT SCH ×2 (10:43→21:04)
[2022-04-01] MEDS: Senna TAB 8.6 mg TAB PO PRN (21:06)
[2022-04-02 05:25] LABS: ABS Eosinophils 0.1 10^3/ul (0-0.6); ABS Lymphocytes 1.7 10^3/ul (1.0-4.8); ABS Monocytes 0.3 10^3/ul (0-0.8); ABS Neutrophils 1.5 10^3/ul (1.5-7.7); Eosinophil % 1.9 %; Hematocrit 25 % (35-47); Hemoglobin 7.6 g/dL (12.0-16.0); Lymphocyte % 48.1 %; Mean Corpuscular HGB Conc 31 g/dL (31-36); Mean Corpuscular Hemoglobin 33 pg (27-31); Mean Corpuscular Volume 107 fL (80-97); Mean Platelet Volume 8.6 fL (7.4-10.4); Platelet Count 231 10^3/uL (150-450); Red Blood Count 2.29 10^6 /uL (3.70-4.87); Red Cell Distribution Width 20 % (10-15); White Blood Count 3.6 10^3/uL (3.5-10.8)
[2022-04-02 06:05] LABS: Calcium 7.2 mg/dL (8.6-10.3); Magnesium 1.8 mg/dL (1.9-2.7); Potassium 4.1 mmol/L (3.5-5.0); eGFR CKD-EPI 121.5 (>60)
[2022-04-02] MEDS: Magnesium Hydroxide LIQ 30 ML UDC PO SCH ×2 (09:43→20:23)
[2022-04-02] MEDS: Polyethylene Glycol 3350 17 GM PACKET PO SCH (09:43)
[2022-04-02] MEDS: Cholecalciferol (VIT D3) 1,000 unit TAB PO SCH (09:45)
[2022-04-02] MEDS: Enoxaparin 80 MG/0.8 ML SYR SUBCUT SCH ×2 (09:45→20:22)
[2022-04-02] MEDS ORDERED: Magnesium Sulfate IV 1GM/100ML 1 GM/100 ML BAG IV ONE (15:31)
[2022-04-03] MEDS ORDERED: Ondansetron 4 mg VIAL 2 MG/ML 2 ml VIAL IV ONE (00:42)
[2022-04-03 06:26] LABS: Hematocrit 25 % (35-47); Hemoglobin 7.9 g/dL (12.0-16.0); Mean Corpuscular HGB Conc 32 g/dL (31-36); Mean Corpuscular Hemoglobin 35 pg (27-31); Mean Corpuscular Volume 107 fL (80-97); Mean Platelet Volume 8.8 fL (7.4-10.4); Platelet Count 207 10^3/uL (150-450); Red Blood Count 2.29 10^6 /uL (3.70-4.87); Red Cell Distribution Width 20 % (10-15); White Blood Count 4.4 10^3/uL (3.5-10.8)
[2022-04-03 06:57] LABS: Calcium 7.5 mg/dL (8.6-10.3); Potassium 3.8 mmol/L (3.5-5.0); eGFR CKD-EPI 117.8 (>60)
[2022-04-03] MEDS ORDERED: LORazepam 2 mg VIAL 1 ml IV PUSH ONE (11:39)
[2022-04-03] MEDS ORDERED: Lorazepam PYXIS KEY PRN (11:39)
[2022-04-03] MEDS: Ondansetron 4 mg VIAL 2 MG/ML 2 ml VIAL IV PRN ×2 (12:23→20:56)
[2022-04-03] MEDS: Cholecalciferol (VIT D3) 1,000 unit TAB PO SCH (12:43)
[2022-04-03] MEDS: Magnesium Hydroxide LIQ 30 ML UDC PO SCH ×2 (12:44→20:54)
[2022-04-03] MEDS: Polyethylene Glycol 3350 17 GM PACKET PO SCH (12:46)
[2022-04-03] MEDS: Acetaminophen IV 1 GM/100ML 1,000 MG/100 ML BAG IV PRN (13:50)
[2022-04-03] MEDS: Enoxaparin 80 MG/0.8 ML SYR SUBCUT SCH ×2 (13:50→20:55)
[2022-04-03] MEDS ORDERED: D5LR 1000 ml BAG 1,000 ML IV SCH (17:00)
[2022-04-03] MEDS: Pantoprazole VIAL 40 MG VIAL IV SCH (18:24)
[2022-04-03] MEDS: D5LR 1000 ml BAG 1,000 ML IV SCH (20:52)
[2022-04-03] MEDS ORDERED: Lactated Ringers 500 ml BAG 500 ML IV ONE (20:55)
[2022-04-04] MEDS: D5LR 1000 ml BAG 1,000 ML IV SCH ×2 (02:41→10:00)
[2022-04-04] MEDS: Ondansetron 4 mg VIAL 2 MG/ML 2 ml VIAL IV PRN ×3 (02:57→21:22)
[2022-04-04] MEDS: Acetaminophen IV 1 GM/100ML 1,000 MG/100 ML BAG IV PRN ×3 (03:02→21:21)
[2022-04-04] MEDS: Senna TAB 8.6 mg TAB PO PRN ×2 (03:13→10:09)
[2022-04-04] MEDS: Pantoprazole VIAL 40 MG VIAL IV SCH ×2 (05:23→20:51)
[2022-04-04 05:50] LABS: ABS Eosinophils 0.1 10^3/ul (0-0.6); ABS Lymphocytes 1.3 10^3/ul (1.0-4.8); ABS Monocytes 0.3 10^3/ul (0-0.8); ABS Neutrophils 1.8 10^3/ul (1.5-7.7); Eosinophil % 1.4 %; Hematocrit 25 % (35-47); Hemoglobin 7.7 g/dL (12.0-16.0); Lymphocyte % 37.1 %; Mean Corpuscular HGB Conc 32 g/dL (31-36); Mean Corpuscular Hemoglobin 34 pg (27-31); Mean Corpuscular Volume 108 fL (80-97); Mean Platelet Volume 8.5 fL (7.4-10.4); Platelet Count 179 10^3/uL (150-450); Red Blood Count 2.28 10^6 /uL (3.70-4.87); Red Cell Distribution Width 20 % (10-15); White Blood Count 3.6 10^3/uL (3.5-10.8)
[2022-04-04 06:19] LABS: Calcium 7.3 mg/dL (8.6-10.3); Magnesium 1.4 mg/dL (1.9-2.7); Potassium 3.6 mmol/L (3.5-5.0); eGFR CKD-EPI 118.4 (>60)
[2022-04-04] MEDS ORDERED: Magnesium Sulfate IV 3 GM in NS 0.9% 100 ml BAG 100 ML IVPB ONE (07:34)
[2022-04-04] MEDS: Enoxaparin 80 MG/0.8 ML SYR SUBCUT SCH ×2 (09:52→20:50)
[2022-04-04] MEDS: Cholecalciferol (VIT D3) 1,000 unit TAB PO SCH (09:54)
[2022-04-04] MEDS: Polyethylene Glycol 3350 17 GM PACKET PO SCH (09:56)
[2022-04-04] MEDS: Magnesium Hydroxide LIQ 30 ML UDC PO SCH ×2 (09:56→20:51)
[2022-04-04] MEDS ORDERED: D5LR 1000 ml BAG 1,000 ML IV SCH (11:45)
[2022-04-04] MEDS ORDERED: Lactated Ringers 500 ml BAG 500 ML IV ONE (16:17)
[2022-04-04 17:12] LABS: Albumin 1.7 g/dL (3.2-5.2); Albumin/Globulin Ratio 0.7 (1-3); Direct Bilirubin 0.2 mg/dL (0.03-0.18); Globulin 2.3 g/dL (2-4); Indirect Bilirubin 0.3 mg/dL (0.3-1.0); Total Bilirubin 0.5 mg/dL (0.2-1.0)
[2022-04-04 17:33] LABS: Albumin 1.7 g/dL (3.2-5.2); Albumin/Globulin Ratio 0.7 (1-3); Direct Bilirubin 0.1 mg/dL (0.03-0.18); Globulin 2.4 g/dL (2-4); Indirect Bilirubin 0.5 mg/dL (0.3-1.0); Total Bilirubin 0.6 mg/dL (0.2-1.0); Total Protein 4.1 g/dL (6.4-8.9)
[2022-04-04] MEDS: TPN 24 HR with Dextrose 50% Water 500 ML, Amino Acid Infusion 10% 850 ML, Sterile Water... CENT\\PICC SCH (22:03)
[2022-04-05] MEDS: Acetaminophen IV 1 GM/100ML 1,000 MG/100 ML BAG IV PRN ×3 (04:12→21:07)
[2022-04-05 04:21] LABS: ABS Lymphocytes 1.3 10^3/ul (1.0-4.8); ABS Monocytes 0.3 10^3/ul (0-0.8); ABS Neutrophils 1.5 10^3/ul (1.5-7.7); Eosinophil % 1.5 %; Hematocrit 26 % (35-47); Lymphocyte % 41.4 %; Mean Corpuscular HGB Conc 31 g/dL (31-36); Mean Corpuscular Hemoglobin 33 pg (27-31); Mean Corpuscular Volume 108 fL (80-97); Mean Platelet Volume 8.7 fL (7.4-10.4); Platelet Count 206 10^3/uL (150-450); Red Cell Distribution Width 20 % (10-15); White Blood Count 3.2 10^3/uL (3.5-10.8)
[2022-04-05 04:55] LABS: Albumin 1.8 g/dL (3.2-5.2); Albumin/Globulin Ratio 0.8 (1-3); Calcium 7.7 mg/dL (8.6-10.3); Globulin 2.4 g/dL (2-4); Magnesium 1.7 mg/dL (1.9-2.7); Phosphorus 4.5 mg/dL (2.5-5.0); Potassium 4.1 mmol/L (3.5-5.0); Total Bilirubin 0.5 mg/dL (0.2-1.0); Total Protein 4.2 g/dL (6.4-8.9); eGFR CKD-EPI 117.8 (>60)
[2022-04-05] MEDS: Pantoprazole VIAL 40 MG VIAL IV SCH ×2 (05:05→17:58)
[2022-04-05] MEDS ORDERED: Magnesium Sulfate 2 gm BAG 2 GM/50 ML BAG IVPB ONE (08:21)
[2022-04-05] MEDS: Ondansetron 4 mg VIAL 2 MG/ML 2 ml VIAL IV PRN ×2 (10:38→17:58)
[2022-04-05] MEDS: Cholecalciferol (VIT D3) 1,000 unit TAB PO SCH (10:51)
[2022-04-05] MEDS: Magnesium Hydroxide LIQ 30 ML UDC PO SCH ×2 (10:52→20:57)
[2022-04-05] MEDS: Enoxaparin 80 MG/0.8 ML SYR SUBCUT SCH ×2 (10:52→20:58)
[2022-04-05] MEDS: Polyethylene Glycol 3350 17 GM PACKET PO SCH (10:52)
[2022-04-05] MEDS: TPN 24 HR with Dextrose 50% Water 500 ML, Amino Acid Infusion 10% 850 ML, Sterile Water... CENT\\PICC SCH (20:19)
[2022-04-05] MEDS: OLANZapine 10 mg TAB*ODT PO PRN (20:54)
[2022-04-05] MEDS: Senna TAB 8.6 mg TAB PO PRN (20:55)
[2022-04-06] MEDS: Pantoprazole VIAL 40 MG VIAL IV SCH ×2 (05:26→17:02)
[2022-04-06 06:01] LABS: ABS Lymphocytes 1.3 10^3/ul (1.0-4.8); ABS Monocytes 0.2 10^3/ul (0-0.8); ABS Neutrophils 1.1 10^3/ul (1.5-7.7); Eosinophil % 1.8 %; Hematocrit 26 % (35-47); Hemoglobin 7.8 g/dL (12.0-16.0); Lymphocyte % 48.5 %; Mean Corpuscular HGB Conc 31 g/dL (31-36); Mean Corpuscular Hemoglobin 33 pg (27-31); Mean Corpuscular Volume 109 fL (80-97); Nucleated Red Blood Cells % 0.2; Platelet Count 201 10^3/uL (150-450); Red Blood Count 2.36 10^6 /uL (3.70-4.87); Red Cell Distribution Width 20 % (10-15); White Blood Count 2.7 10^3/uL (3.5-10.8)
[2022-04-06 06:30] LABS: Albumin 1.7 g/dL (3.2-5.2); Albumin/Globulin Ratio 0.7 (1-3); Calcium 7.5 mg/dL (8.6-10.3); Globulin 2.3 g/dL (2-4); Magnesium 1.7 mg/dL (1.9-2.7); Potassium 4.2 mmol/L (3.5-5.0); Total Bilirubin 0.4 mg/dL (0.2-1.0); eGFR CKD-EPI 118.4 (>60)
[2022-04-06] MEDS ORDERED: Magnesium Sulfate 2 gm BAG 2 GM/50 ML BAG IVPB ONE (07:48)
[2022-04-06] MEDS: Cholecalciferol (VIT D3) 1,000 unit TAB PO SCH (09:51)
[2022-04-06] MEDS: Magnesium Hydroxide LIQ 30 ML UDC PO PRN ×2 (09:53→10:00)
[2022-04-06] MEDS: Polyethylene Glycol 3350 17 GM PACKET PO SCH (09:54)
[2022-04-06] MEDS: Enoxaparin 80 MG/0.8 ML SYR SUBCUT SCH ×2 (09:54→20:03)
[2022-04-06] MEDS: Magnesium Hydroxide LIQ 30 ML UDC PO SCH ×2 (10:00→20:05)
[2022-04-06] MEDS: Ondansetron 4 mg VIAL 2 MG/ML 2 ml VIAL IV PRN (10:16)
[2022-04-06] MEDS ORDERED: TPN 24 HR with Dextrose 50% Water 500 ML, Amino Acid Infusion 10% 850 ML, Sterile Water... CENT\\PICC SCH (17:00)
[2022-04-06] MEDS: OLANZapine 10 mg TAB*ODT PO PRN ×2 (17:36→17:37)
[2022-04-06] MEDS: Senna TAB 8.6 mg TAB PO PRN (20:02)
[2022-04-06 23:45] LABS: ABS Lymphocytes 0.3 10^3/ul (1.0-4.8); ABS Monocytes 0.2 10^3/ul (0-0.8); ABS Neutrophils 5.1 10^3/ul (1.5-7.7); Eosinophil % 0.7 %; Hematocrit 28 % (35-47); Hemoglobin 8.5 g/dL (12.0-16.0); Lymphocyte % 5.9 %; Mean Corpuscular HGB Conc 31 g/dL (31-36); Mean Corpuscular Hemoglobin 33 pg (27-31); Mean Corpuscular Volume 108 fL (80-97); Platelet Count 160 10^3/uL (150-450); Red Blood Count 2.56 10^6 /uL (3.70-4.87); Red Cell Distribution Width 20 % (10-15); White Blood Count 5.7 10^3/uL (3.5-10.8)
[2022-04-07 00:23] LABS: Albumin/Globulin Ratio 0.8 (1-3); C Reactive Protein 2.59 mg/L (<8.01); Globulin 2.5 g/dL (2-4); Potassium 4.1 mmol/L (3.5-5.0); Total Bilirubin 0.6 mg/dL (0.2-1.0); Total Protein 4.5 g/dL (6.4-8.9); eGFR CKD-EPI 115.6 (>60)
[2022-04-07 00:42] LABS: Calcium 7.4 mg/dL (8.6-10.3)
[2022-04-07] MEDS: Acetaminophen IV 1 GM/100ML 1,000 MG/100 ML BAG IV PRN ×2 (00:57→15:32)
[2022-04-07] MEDS ORDERED: Lactated Ringers 1000 ml BAG 1,000 ML IV ONE ×2 (01:00→15:58)
[2022-04-07] MEDS ORDERED: Lactated Ringers 1000 ml BAG 1,000 ML IV SCH (01:00)
[2022-04-07 02:47] LABS: Urine Appearance Clear; Urine Bilirubin Negative (Negative); Urine Blood Negative (Negative); Urine Color Yellow; Urine Glucose Negative (Negative); Urine Ketones Negative (Negative); Urine Nitrite Negative (Negative); Urine Protein Negative (Negative); Urine Specific Gravity 1.009 (1.002-1.030); Urine Urobilinogen Negative (Negative)
[2022-04-07] MEDS: Pantoprazole VIAL 40 MG VIAL IV SCH ×2 (04:10→16:07)
[2022-04-07 04:51] LABS: ABS Lymphocytes 0.4 10^3/ul (1.0-4.8); ABS Monocytes 0.3 10^3/ul (0-0.8); ABS Neutrophils 5.4 10^3/ul (1.5-7.7); Hematocrit 25 % (35-47); Hemoglobin 8.1 g/dL (12.0-16.0); Lymphocyte % 6.5 %; Mean Corpuscular HGB Conc 32 g/dL (31-36); Mean Corpuscular Hemoglobin 34 pg (27-31); Mean Corpuscular Volume 106 fL (80-97); Platelet Count 150 10^3/uL (150-450); Red Blood Count 2.36 10^6 /uL (3.70-4.87); Red Cell Distribution Width 19 % (10-15); White Blood Count 6.2 10^3/uL (3.5-10.8)
[2022-04-07 05:26] LABS: Albumin 1.8 g/dL (3.2-5.2); Magnesium 1.6 mg/dL (1.9-2.7)
[2022-04-07 05:32] LABS: Phosphorus 3.2 mg/dL (2.5-5.0)
[2022-04-07 05:33] LABS: Albumin/Globulin Ratio 0.7 (1-3); Globulin 2.5 g/dL (2-4); Potassium 4.1 mmol/L (3.5-5.0); Total Bilirubin 0.5 mg/dL (0.2-1.0); Total Protein 4.3 g/dL (6.4-8.9); eGFR CKD-EPI 115.1 (>60)
[2022-04-07 05:40] LABS: Calcium 7.3 mg/dL (8.6-10.3)
[2022-04-07] MEDS ORDERED: Magnesium Sulfate 2 gm BAG 2 GM/50 ML BAG IVPB ONE (07:31)
[2022-04-07] MEDS: Cholecalciferol (VIT D3) 1,000 unit TAB PO SCH (09:03)
[2022-04-07] MEDS: Enoxaparin 80 MG/0.8 ML SYR SUBCUT SCH (09:04)
[2022-04-07] MEDS: Polyethylene Glycol 3350 17 GM PACKET PO SCH (09:04)
[2022-04-07] MEDS: Magnesium Hydroxide LIQ 30 ML UDC PO SCH ×2 (09:05→21:08)
[2022-04-07] MEDS: Ondansetron 4 mg VIAL 2 MG/ML 2 ml VIAL IV PRN (13:12)
[2022-04-07] MEDS ORDERED: Vancomycin 1,000 MG in NS 0.9% 250 ml 250 ML IVPB ONE (14:57)
[2022-04-07] MEDS ORDERED: Vancomycin per Pharmacy 1 EA NOTE FOLLOW UP SCH (15:00)
[2022-04-07] MEDS ORDERED: TPN 24 HR with Dextrose 50% Water 500 ML, Amino Acid Infusion 10% 850 ML, Sterile Water... CENT\\PICC SCH (17:00)
[2022-04-07] MEDS: OLANZapine 10 mg TAB*ODT PO PRN (20:44)
[2022-04-08] MEDS: Pantoprazole VIAL 40 MG VIAL IV SCH ×2 (06:00→16:30)
[2022-04-08] MEDS: Vancomycin 750 MG in NS 0.9% 250 ML IVPB SCH ×3 (07:26→16:30)
[2022-04-08] MEDS: Magnesium Hydroxide LIQ 30 ML UDC PO SCH ×2 (09:36→20:44)
[2022-04-08] MEDS: Polyethylene Glycol 3350 17 GM PACKET PO SCH (09:36)
[2022-04-08] MEDS: Cholecalciferol (VIT D3) 1,000 unit TAB PO SCH (10:30)
[2022-04-08] MEDS: D5LR 1000 ml BAG 1,000 ML IV SCH (10:46)
[2022-04-08] MEDS ORDERED: Lidocaine 1% w EPI 1:100,000 MDV 20 ML VIAL ONE (12:33)
[2022-04-08] MEDS ORDERED: Midazolam 2 mg/2 ml VIAL 1 mg/ml 2 ml VIAL (2 mg) ONE (12:49)
[2022-04-08] MEDS ORDERED: Propofol 10 MG/ML 20 ML BTL ONE (12:59)
[2022-04-08] MEDS ORDERED: Lidocaine 2% PF 10 ML AMP (OR) ONE (13:20)
[2022-04-08] MEDS ORDERED: Metoclopramide 5 MG/ML VIAL (10 mg) IV PRN (13:32)
[2022-04-08] MEDS ORDERED: fentaNYL 100 mcg/2 ml 50 MCG/ML VIAL IV PRN (13:32)
[2022-04-08] MEDS ORDERED: Ondansetron 4 mg VIAL 2 MG/ML 2 ml VIAL IV PRN (13:32)
[2022-04-08] MEDS ORDERED: HYDROcodone/ACETAMIN 5/325 mg TAB PO PRN (13:32)
[2022-04-08] MEDS ORDERED: Naloxone 0.4 mg VIAL 0.4 mg/ml 1 ml VIAL IV PRN (13:32)
[2022-04-08] MEDS ORDERED: HYDROcodone/ACETAMIN 5/325 mg TAB ONE (13:37)
[2022-04-08] MEDS ORDERED: Lactated Ringers 500 ml BAG 500 ML IV ONE (14:37)
[2022-04-08] MEDS ORDERED: Vancomycin Trough Check NOTE FOLLOW UP ONE (15:30)
[2022-04-08 16:04] LABS: Hematocrit 26 % (35-47); Hemoglobin 8.1 g/dL (12.0-16.0); Mean Corpuscular HGB Conc 31 g/dL (31-36); Mean Corpuscular Hemoglobin 34 pg (27-31); Mean Corpuscular Volume 111 fL (80-97); Platelet Count 164 10^3/uL (150-450); Red Blood Count 2.38 10^6 /uL (3.70-4.87); Red Cell Distribution Width 20 % (10-15); White Blood Count 3.4 10^3/uL (3.5-10.8)
[2022-04-08 16:25] LABS: Hypochromasia 1+; Macrocytosis 2+
[2022-04-08 16:26] LABS: ABS Eosinophils 0.1 10^3/ul (0-0.6); ABS Lymphocytes 0.8 10^3/ul (1.0-4.8); ABS Monocytes 0.3 10^3/ul (0-0.8); ABS Neutrophils 2.2 10^3/ul (1.5-7.7); Nucleated Red Blood Cells % 0.3
[2022-04-08 17:29] LABS: Albumin 1.9 g/dL (3.2-5.2); CO2 Carbon Dioxide 21 mmol/L (22-32); Calcium 7.5 mg/dL (8.6-10.3); Chloride 110 mmol/L (101-111); Sodium 138 mmol/L (135-145)
[2022-04-08 17:35] LABS: ALT 15 U/L (7-52); Albumin/Globulin Ratio 0.7 (1-3); Alkaline Phosphatase 78 U/L (35-149); Blood Urea Nitrogen 10 mg/dL (6-24); Globulin 2.7 g/dL (2-4); Glucose 98 mg/dL (70-100); Total Protein 4.6 g/dL (6.4-8.9); eGFR CKD-EPI 118.4 (>60)
[2022-04-08 17:37] LABS: Anion Gap 7 mmol/L (2-11)
[2022-04-08] MEDS: OLANZapine 10 mg TAB*ODT PO PRN (20:43)
[2022-04-08] MEDS ORDERED: Ondansetron ODT 4 mg TAB 4 MG TAB SL ONE (23:40)
[2022-04-09] MEDS: Vancomycin 750 MG in NS 0.9% 250 ML IVPB SCH ×3 (00:25→15:05)
[2022-04-09] MEDS: Pantoprazole VIAL 40 MG VIAL IV SCH ×2 (06:12→16:15)
[2022-04-09] MEDS: D5LR 1000 ml BAG 1,000 ML IV SCH (06:20)
[2022-04-09] MEDS: Cholecalciferol (VIT D3) 1,000 unit TAB PO SCH (08:52)
[2022-04-09] MEDS: Polyethylene Glycol 3350 17 GM PACKET PO SCH (09:20)
[2022-04-09] MEDS: Magnesium Hydroxide LIQ 30 ML UDC PO SCH ×2 (09:55→20:59)
[2022-04-09] MEDS: Enoxaparin 80 MG/0.8 ML SYR SUBCUT SCH ×2 (11:00→20:44)
[2022-04-09] MEDS: OLANZapine 10 mg TAB*ODT PO PRN (16:15)
[2022-04-09] MEDS ORDERED: D5LR 1000 ml BAG 1,000 ML IV SCH (17:15)
[2022-04-09] MEDS: Ondansetron 4 mg VIAL 2 MG/ML 2 ml VIAL IV PRN (18:19)
[2022-04-09] MEDS: Acetaminophen IV 1 GM/100ML 1,000 MG/100 ML BAG IV PRN (18:19)
[2022-04-10] MEDS: Vancomycin 750 MG in NS 0.9% 250 ML IVPB SCH ×3 (00:41→17:52)
[2022-04-10] MEDS: Pantoprazole VIAL 40 MG VIAL IV SCH ×2 (05:30→16:26)
[2022-04-10] MEDS: Enoxaparin 80 MG/0.8 ML SYR SUBCUT SCH (08:05)
[2022-04-10] MEDS: Cholecalciferol (VIT D3) 1,000 unit TAB PO SCH (08:05)
[2022-04-10] MEDS: Acetaminophen IV 1 GM/100ML 1,000 MG/100 ML BAG IV PRN (08:05)
[2022-04-10] MEDS: Polyethylene Glycol 3350 17 GM PACKET PO SCH (08:05)
[2022-04-10] MEDS: Magnesium Hydroxide LIQ 30 ML UDC PO SCH (08:07)
[2022-04-10] MEDS: Ondansetron 4 mg VIAL 2 MG/ML 2 ml VIAL IV PRN (13:45)
[2022-04-10] MEDS: OLANZapine 10 mg TAB*ODT PO PRN (13:45)
[2022-04-10] MEDS ORDERED: Vancomycin Trough Check NOTE FOLLOW UP ONE (15:30)
[2022-04-10 17:24] VITALS: BP 97/52
[2022-04-10 17:43] LABS: Vancomycin Trough 16.5 mcg/mL; eGFR CKD-EPI 113.7 (>60)
[2022-04-10 17:56] LABS: TSH Ultra Thyroid Stim Horm 0.16 mcIU/mL (0.34-5.60)
[2022-04-10 22:46] LABS: Anaplasma phagocytophilum Negative (Negative); B. miyamotoi PCR, B Negative (Negative); Babesia divergens/MO-1 Negative (Negative); Babesia ducani Negative (Negative); Ehrlichia chaffeensis Negative (Negative); Ehrlichia ewingii/canis Negative (Negative); Ehrlichia muris eauclairensis Negative (Negative)
== END 2022-04-10 20:45 | disposition short-term general hospital (02) | DRG 392 ==
LOC: EDHOLD 13:33 → ED 13:33 → SUATTDRO 23:29 → MEDTELE 03-30 23:02 → SUATTDRO 04-01 10:01 → MEDTELE 04-05 13:40
PROVIDERS: ADMIT Student in an Organized Health Care Education/Training Program; ATTEND Internal Medicine

== ENCOUNTER 2022-05-19 10:33 | Inpatient (IN) ==
[2022-05-19] MEDS ORDERED: Ondansetron ODT 4 mg TAB 4 MG TAB SL ONE (13:27)
[2022-05-19] MEDS ORDERED: Morphine 4 MG/ML VIAL (1 ml) IV ONE ×2 (16:41→19:23)
[2022-05-19] MEDS ORDERED: Ondansetron 4 mg VIAL 2 MG/ML 2 ml VIAL IV ONE (18:27)
[2022-05-19] MEDS ORDERED: Ondansetron 4 mg VIAL 2 MG/ML 2 ml VIAL ONE (18:28)
[2022-05-19] MEDS ORDERED: Lactated Ringers 1000 ml BAG 1,000 ML IV ONE (18:31)
[2022-05-19] MEDS ORDERED: Prochlorperazine 5 mg/ml 2 ml VIAL (10 mg) IV ONE (19:24)
[2022-05-19 19:31] LABS: ABS Eosinophils 0.1 10^3/ul (0-0.6); ABS Lymphocytes 1.2 10^3/ul (1.0-4.8); ABS Monocytes 0.3 10^3/ul (0-0.8); ABS Neutrophils 2.7 10^3/ul (1.5-7.7); Eosinophil % 1.4 %; Hematocrit 32 % (35-47); Hemoglobin 10.6 g/dL (12.0-16.0); Lymphocyte % 27.7 %; Mean Corpuscular HGB Conc 33 g/dL (31-36); Mean Corpuscular Hemoglobin 34 pg (27-31); Mean Corpuscular Volume 101 fL (80-97); Mean Platelet Volume 9.5 fL (7.4-10.4); Nucleated Red Blood Cells % 0.1; Platelet Count 144 10^3/uL (150-450); Red Blood Count 3.15 10^6 /uL (3.70-4.87); Red Cell Distribution Width 16 % (10-15); White Blood Count 4.2 10^3/uL (3.5-10.8)
[2022-05-19 19:46] LABS: Albumin/Globulin Ratio 0.9 (1-3); Calcium 7.3 mg/dL (8.6-10.3); Globulin 2.2 g/dL (2-4); Magnesium 1.3 mg/dL (1.9-2.7); Potassium 3.5 mmol/L (3.5-5.0); Total Bilirubin 0.8 mg/dL (0.2-1.0); Total Protein 4.2 g/dL (6.4-8.9); eGFR CKD-EPI 110.6 (>60)
[2022-05-19 19:47] LABS: Urine Appearance Cloudy; Urine Bilirubin Negative (Negative); Urine Blood Negative (Negative); Urine Color Amber; Urine Glucose Negative (Negative); Urine Ketones Trace (Negative); Urine Nitrite Negative (Negative); Urine Protein 1+(30 mg/dL) (Negative); Urine Specific Gravity 1.021 (1.002-1.030); Urine Urobilinogen Positive (Negative)
[2022-05-19 20:06] LABS: Urine Bacteria 1+ (Absent); Urine Red Blood Cell Absent (Absent); Urine Squamous Epithelial Cell Present (Absent); Urine White Blood Cell 3+(>20/hpf) (Absent)
[2022-05-19] MEDS ORDERED: Polyethylene Glycol 3350 17 GM PACKET PO PRN (23:11)
[2022-05-20] MEDS ORDERED: Magnesium Hydroxide LIQ 30 ML UDC PO PRN (00:17)
[2022-05-20] MEDS ORDERED: Senna TAB 8.6 mg TAB PO PRN (00:17)
[2022-05-20] MEDS: Acetaminophen IV 1 GM/100ML 1,000 MG/100 ML BAG IV SCH ×5 (00:51→21:27)
[2022-05-20] MEDS: Pantoprazole VIAL 40 MG VIAL IV SCH ×2 (01:42→13:51)
[2022-05-20] MEDS: cefTRIAXone 1 gm/50 mL D5W 1 GM/50 ML BAG IV SCH ×2 (01:45→23:14)
[2022-05-20] MEDS ORDERED: Magnesium Sulf 4 GM/100 ML IV 4,000 MG/100 ML BAG IVPB ONE (02:48)
[2022-05-20] MEDS: Morphine 2 MG/ML SYRINGE IV PRN (03:37)
[2022-05-20] MEDS ORDERED: Enoxaparin 40 MG/0.4 ML SYR SUBCUT SCH (06:00)
[2022-05-20] MEDS: Potassium Chlor 20 meq TAB.ER PO SCH ×2 (07:47→21:18)
[2022-05-20] MEDS: Enoxaparin 80 MG/0.8 ML SYR SUBCUT SCH ×2 (07:48→21:18)
[2022-05-20] MEDS: Cholecalciferol (VIT D3) 1,000 unit TAB PO SCH (07:48)
[2022-05-20] MEDS: Polyethylene Glycol 3350 17 GM PACKET PO SCH (07:51)
[2022-05-20] MEDS: Ondansetron 4 mg VIAL 2 MG/ML 2 ml VIAL IV PRN ×2 (08:05→15:14)
[2022-05-20] MEDS ORDERED: Magnesium Sulfate IV 3 GM in NS 0.9% 100 ml BAG 100 ML IVPB ONE (09:00)
[2022-05-20 09:33] LABS: ABS Eosinophils 0.1 10^3/ul (0-0.6); ABS Lymphocytes 1.3 10^3/ul (1.0-4.8); ABS Monocytes 0.3 10^3/ul (0-0.8); ABS Neutrophils 1.6 10^3/ul (1.5-7.7); Eosinophil % 4.4 %; Hematocrit 31 % (35-47); Lymphocyte % 39.3 %; Mean Corpuscular HGB Conc 33 g/dL (31-36); Mean Corpuscular Hemoglobin 33 pg (27-31); Mean Corpuscular Volume 99 fL (80-97); Mean Platelet Volume 10.9 fL (7.4-10.4); Nucleated Red Blood Cells % 0.2; Platelet Count 170 10^3/uL (150-450); Red Blood Count 3.07 10^6 /uL (3.70-4.87); Red Cell Distribution Width 17 % (10-15); White Blood Count 3.4 10^3/uL (3.5-10.8)
[2022-05-20 10:15] LABS: Anion Gap 7 mmol/L (2-11); Blood Urea Nitrogen 10 mg/dL (6-24); CO2 Carbon Dioxide 25 mmol/L (22-32); Calcium 7.3 mg/dL (8.6-10.3); Chloride 103 mmol/L (101-111); Glucose 74 mg/dL (70-100); Magnesium 2.4 mg/dL (1.9-2.7); Potassium 3.6 mmol/L (3.5-5.0); Prealbumin 12 mg/dL (18-38); Sodium 135 mmol/L (135-145); eGFR CKD-EPI 101.6 (>60)
[2022-05-20 11:30] LABS: Folate 7.26 ng/mL (5.90-24.80)
[2022-05-20 11:31] LABS: Vitamin B12 809 pg/mL (180-914)
[2022-05-20 17:28] LABS: Rheumatoid Factor < 10 IU/mL (<15)
[2022-05-21] MEDS: Pantoprazole VIAL 40 MG VIAL IV SCH ×2 (00:50→12:49)
[2022-05-21] MEDS: Morphine 2 MG/ML SYRINGE IV PRN ×3 (05:12→22:15)
[2022-05-21] MEDS: Acetaminophen IV 1 GM/100ML 1,000 MG/100 ML BAG IV SCH ×4 (05:17→21:52)
[2022-05-21 06:23] LABS: Hematocrit 33 % (35-47); Hemoglobin 10.4 g/dL (12.0-16.0); Mean Corpuscular HGB Conc 32 g/dL (31-36); Mean Corpuscular Hemoglobin 32 pg (27-31); Mean Corpuscular Volume 101 fL (80-97); Mean Platelet Volume 9.5 fL (7.4-10.4); Platelet Count 134 10^3/uL (150-450); Red Blood Count 3.22 10^6 /uL (3.70-4.87); Red Cell Distribution Width 16 % (10-15); White Blood Count 2.3 10^3/uL (3.5-10.8)
[2022-05-21 06:58] LABS: ABS Eosinophils 0.1 10^3/ul (0-0.6); ABS Lymphocytes 1.1 10^3/ul (1.0-4.8); ABS Monocytes 0.2 10^3/ul (0-0.8); ABS Neutrophils 0.9 10^3/ul (1.5-7.7); Eosinophil % 2.8 %; Lymphocyte % 47.7 %; Nucleated Red Blood Cells % 0.3
[2022-05-21 07:01] LABS: Calcium 7.3 mg/dL (8.6-10.3); Potassium 4.2 mmol/L (3.5-5.0); eGFR CKD-EPI 111.4 (>60)
[2022-05-21] MEDS: Potassium Chlor 20 meq TAB.ER PO SCH ×2 (09:18→21:52)
[2022-05-21] MEDS: Cholecalciferol (VIT D3) 1,000 unit TAB PO SCH (09:18)
[2022-05-21] MEDS: Polyethylene Glycol 3350 17 GM PACKET PO SCH (09:18)
[2022-05-21] MEDS: Enoxaparin 80 MG/0.8 ML SYR SUBCUT SCH ×2 (09:18→21:54)
[2022-05-21 09:56] LABS: % Iron Saturation 50 % (15-55); Iron 53 ug/dL (50-212); Total Iron Binding Capacity 105 mcg/dL (250-450); Transferrin < 75 mg/dL (203-362); Unsaturated Iron Binding 52 ug/dL
[2022-05-21 14:14] LABS: Hepatitis B Surface Antigen Nonreactive (Nonreactive)
[2022-05-21 14:19] LABS: Hepatitis A Ab IgM Negative (Negative); Hepatitis B Core IgM Nonreactive (Nonreactive)
[2022-05-21 14:31] LABS: Hepatitis C Antibody Negative (Negative)
[2022-05-21] MEDS: cefTRIAXone 1 gm/50 mL D5W 1 GM/50 ML BAG IV SCH (22:52)
[2022-05-22] MEDS: Pantoprazole VIAL 40 MG VIAL IV SCH ×2 (00:16→12:34)
[2022-05-22] MEDS: Acetaminophen IV 1 GM/100ML 1,000 MG/100 ML BAG IV SCH ×2 (05:18→11:34)
[2022-05-22 07:19] LABS: Calcium 7.7 mg/dL (8.6-10.3); Potassium 4.6 mmol/L (3.5-5.0)
[2022-05-22 07:20] LABS: Hematocrit 34 % (35-47); Mean Corpuscular HGB Conc 32 g/dL (31-36); Mean Corpuscular Hemoglobin 33 pg (27-31); Mean Corpuscular Volume 105 fL (80-97); Mean Platelet Volume 9.6 fL (7.4-10.4); Platelet Count 131 10^3/uL (150-450); Red Blood Count 3.29 10^6 /uL (3.70-4.87); Red Cell Distribution Width 17 % (10-15); White Blood Count 2.2 10^3/uL (3.5-10.8)
[2022-05-22 07:24] LABS: eGFR CKD-EPI 114.6 (>60)
[2022-05-22 07:30] LABS: ABS Eosinophils 0.1 10^3/ul (0-0.6); ABS Lymphocytes 1.2 10^3/ul (1.0-4.8); ABS Monocytes 0.2 10^3/ul (0-0.8); ABS Neutrophils 0.8 10^3/ul (1.5-7.7); Eosinophil % 3.1 %; Lymphocyte % 53.5 %; Nucleated Red Blood Cells % 0.2
[2022-05-22] MEDS ORDERED: Calcium Gluconate 2 GM in NS 0.9% 100 ml BAG 100 ML IV ONE (07:41)
[2022-05-22] MEDS: Potassium Chlor 20 meq TAB.ER PO SCH ×2 (08:45→20:50)
[2022-05-22] MEDS: Polyethylene Glycol 3350 17 GM PACKET PO SCH (08:46)
[2022-05-22] MEDS: Enoxaparin 80 MG/0.8 ML SYR SUBCUT SCH ×2 (08:46→20:51)
[2022-05-22] MEDS: Cholecalciferol (VIT D3) 1,000 unit TAB PO SCH (08:46)
[2022-05-22] MEDS: Morphine 2 MG/ML SYRINGE IV PRN ×2 (12:34→20:52)
[2022-05-22 13:17] LABS: Ferritin 380.3 ng/mL (11-307)
[2022-05-22 15:03] LABS: Copper, S 35 mcg/dL (77-206)
[2022-05-22] MEDS: Ondansetron 4 mg VIAL 2 MG/ML 2 ml VIAL IV PRN (20:51)
[2022-05-23] MEDS: Pantoprazole VIAL 40 MG VIAL IV SCH ×2 (00:13→13:28)
[2022-05-23] MEDS: cefTRIAXone 1 gm/50 mL D5W 1 GM/50 ML BAG IV SCH (00:13)
[2022-05-23 07:20] LABS: ABS Eosinophils 0.1 10^3/ul (0-0.6); ABS Lymphocytes 1.6 10^3/ul (1.0-4.8); ABS Monocytes 0.5 10^3/ul (0-0.8); ABS Neutrophils 6.8 10^3/ul (1.5-7.7); Hematocrit 35 % (35-47); Hemoglobin 10.7 g/dL (12.0-16.0); Lymphocyte % 17.4 %; Mean Corpuscular HGB Conc 31 g/dL (31-36); Mean Corpuscular Hemoglobin 33 pg (27-31); Mean Corpuscular Volume 107 fL (80-97); Mean Platelet Volume 9.4 fL (7.4-10.4); Nucleated Red Blood Cells % 0.1; Platelet Count 136 10^3/uL (150-450); Red Blood Count 3.25 10^6 /uL (3.70-4.87); Red Cell Distribution Width 17 % (10-15); White Blood Count 8.9 10^3/uL (3.5-10.8)
[2022-05-23] MEDS: Enoxaparin 80 MG/0.8 ML SYR SUBCUT SCH ×2 (09:34→22:04)
[2022-05-23] MEDS: Potassium Chlor 20 meq TAB.ER PO SCH ×2 (09:35→22:03)
[2022-05-23] MEDS: Cholecalciferol (VIT D3) 1,000 unit TAB PO SCH (09:35)
[2022-05-23] MEDS: Polyethylene Glycol 3350 17 GM PACKET PO SCH ×2 (10:30→23:38)
[2022-05-23] MEDS: Ondansetron 4 mg VIAL 2 MG/ML 2 ml VIAL IV PRN ×2 (13:28→22:02)
[2022-05-23 21:02] LABS: HIV 4th Generation Nonreactive (Nonreactive)
[2022-05-24] MEDS: Pantoprazole VIAL 40 MG VIAL IV SCH ×2 (00:12→12:28)
[2022-05-24] MEDS: cefTRIAXone 1 gm/50 mL D5W 1 GM/50 ML BAG IV SCH (00:12)
[2022-05-24 06:40] LABS: Hematocrit 31 % (35-47); Hemoglobin 10.1 g/dL (12.0-16.0); Mean Corpuscular HGB Conc 33 g/dL (31-36); Mean Corpuscular Hemoglobin 34 pg (27-31); Mean Corpuscular Volume 101 fL (80-97); Mean Platelet Volume 9.4 fL (7.4-10.4); Platelet Count 154 10^3/uL (150-450); Red Blood Count 3.02 10^6 /uL (3.70-4.87); Red Cell Distribution Width 17 % (10-15)
[2022-05-24 07:06] LABS: Calcium 7.7 mg/dL (8.6-10.3); Potassium 4.1 mmol/L (3.5-5.0); eGFR CKD-EPI 112.3 (>60)
[2022-05-24] MEDS: Cholecalciferol (VIT D3) 1,000 unit TAB PO SCH (07:56)
[2022-05-24] MEDS: Multivitamins/Minerals TAB PO SCH (07:56)
[2022-05-24] MEDS: Enoxaparin 80 MG/0.8 ML SYR SUBCUT SCH ×2 (07:56→20:07)
[2022-05-24] MEDS: Potassium Chlor 20 meq TAB.ER PO SCH ×2 (08:00→20:08)
[2022-05-24 10:55] LABS: ABS Eosinophils 0.1 10^3/ul (0-0.6); ABS Monocytes 0.5 10^3/ul (0-0.8); ABS Neutrophils 8.4 10^3/ul (1.5-7.7); Eosinophil % 0.8 %; Lymphocyte % 18.3 %; Nucleated Red Blood Cells % 0.1
[2022-05-24] MEDS: Ondansetron 4 mg VIAL 2 MG/ML 2 ml VIAL IV PRN (17:40)
[2022-05-24] MEDS: Polyethylene Glycol 3350 17 GM PACKET PO SCH (20:06)
[2022-05-25] MEDS: Pantoprazole VIAL 40 MG VIAL IV SCH (00:42)
[2022-05-25] MEDS: Ondansetron 4 mg VIAL 2 MG/ML 2 ml VIAL IV PRN (00:47)
[2022-05-25 07:14] VITALS: BP 81/52
[2022-05-25] MEDS: Cholecalciferol (VIT D3) 1,000 unit TAB PO SCH (10:20)
[2022-05-25] MEDS: Potassium Chlor 20 meq TAB.ER PO SCH (10:20)
[2022-05-25] MEDS: Enoxaparin 80 MG/0.8 ML SYR SUBCUT SCH (10:20)
[2022-05-25] MEDS: Multivitamins/Minerals TAB PO SCH (10:21)
== END 2022-05-25 12:00 | DRG 552 ==
LOC: ED 10:33 → EDHOLD 05-20 02:17 → SUATTDRO 05-20 02:17 → SSU 05-20 19:49 → MED 05-21 17:47
PROVIDERS: ADMIT Internal Medicine; ATTEND Internal Medicine

== ENCOUNTER 2022-07-18 11:56 | Inpatient (IN) ==
[2022-07-18] MEDS ORDERED: Thiamine 100 MG/ML 2 ml VIAL 100 MG, Folic Acid IV 1 MG, Multiple Vitamin IV ADULT 10 M... IV ONE (13:18)
[2022-07-18] MEDS ORDERED: Lactated Ringers 1000 ml BAG 1,000 ML IV ONE (13:18)
[2022-07-18] MEDS ORDERED: Prochlorperazine 5 mg/ml 2 ml VIAL (10 mg) IV ONE (13:18)
[2022-07-18] MEDS ORDERED: Morphine 4 MG/ML VIAL (1 ml) IV ONE ×2 (13:18→17:53)
[2022-07-18 13:56] LABS: ABS Lymphocytes 1.2 10^3/ul (1.0-4.8); ABS Monocytes 0.4 10^3/ul (0-0.8); ABS Neutrophils 3.1 10^3/ul (1.5-7.7); Eosinophil % 0.9 %; Hematocrit 34 % (35-47); Hemoglobin 11.6 g/dL (12.0-16.0); Lymphocyte % 25.2 %; Mean Corpuscular HGB Conc 34 g/dL (31-36); Mean Corpuscular Hemoglobin 34 pg (27-31); Mean Corpuscular Volume 102 fL (80-97); Mean Platelet Volume 8.8 fL (7.4-10.4); Platelet Count 321 10^3/uL (150-450); Red Blood Count 3.37 10^6 /uL (3.70-4.87); Red Cell Distribution Width 16 % (10-15); White Blood Count 4.8 10^3/uL (3.5-10.8)
[2022-07-18 14:06] LABS: INR 1.12 (0.88-1.18)
[2022-07-18 14:24] LABS: Albumin 3.2 g/dL (3.2-5.2); Albumin/Globulin Ratio 1.1 (1-3); C Reactive Protein 1.34 mg/L (<8.01); Calcium 8.7 mg/dL (8.6-10.3); Globulin 2.9 g/dL (2-4); Magnesium 1.3 mg/dL (1.9-2.7); Total Bilirubin 0.7 mg/dL (0.2-1.0); Total Protein 6.1 g/dL (6.4-8.9); eGFR CKD-EPI 96.9 (>60)
[2022-07-18 14:27] LABS: Potassium 3.3 mmol/L (3.5-5.0)
[2022-07-18] MEDS ORDERED: Magnesium Sulfate 2 gm BAG 2 GM/50 ML BAG IVPB ONE (15:21)
[2022-07-18] MEDS ORDERED: Iohexol 350 (CONTRAST) 500 ML MDV IV ONE (16:03)
[2022-07-18] MEDS ORDERED: Ondansetron 4 mg VIAL 2 MG/ML 2 ml VIAL IV ONE (17:25)
[2022-07-18] MEDS ORDERED: Acetaminophen IV 1 GM/100ML 1,000 MG/100 ML BAG IV PRN (22:18)
[2022-07-19] MEDS: HYDROmorphone 0.5 MG/0.5 ML SYRINGE IV SLOW PU PRN ×4 (00:05→19:44)
[2022-07-19] MEDS: Prochlorperazine 5 mg/ml 2 ml VIAL (10 mg) IV PRN ×4 (00:05→19:39)
[2022-07-19] MEDS: KCL 20 MEQ/100 ML IVPREMIX 20 MEQ/100 ML BAG IV SCH ×2 (00:08→02:25)
[2022-07-19] MEDS: Lactated Ringers 1000 ml BAG 1,000 ML IV SCH ×3 (00:27→23:44)
[2022-07-19] MEDS: Enoxaparin 60 MG/0.6 ML SYR SUBCUT SCH ×2 (08:56→21:17)
[2022-07-19] MEDS: Pantoprazole VIAL 40 MG VIAL IV SCH ×2 (08:56→21:17)
[2022-07-19] MEDS ORDERED: Enoxaparin 40 MG/0.4 ML SYR SUBCUT SCH (09:00)
[2022-07-19 09:43] LABS: ABS Lymphocytes 1.2 10^3/ul (1.0-4.8); ABS Monocytes 0.3 10^3/ul (0-0.8); ABS Neutrophils 1.7 10^3/ul (1.5-7.7); Eosinophil % 1.5 %; Hematocrit 29 % (35-47); Hemoglobin 9.4 g/dL (12.0-16.0); Lymphocyte % 37.1 %; Mean Corpuscular HGB Conc 33 g/dL (31-36); Mean Corpuscular Hemoglobin 34 pg (27-31); Mean Corpuscular Volume 104 fL (80-97); Mean Platelet Volume 9.2 fL (7.4-10.4); Nucleated Red Blood Cells % 0.1; Platelet Count 247 10^3/uL (150-450); Red Blood Count 2.76 10^6 /uL (3.70-4.87); Red Cell Distribution Width 17 % (10-15); White Blood Count 3.2 10^3/uL (3.5-10.8)
[2022-07-19 10:03] LABS: Calcium 7.9 mg/dL (8.6-10.3); Magnesium 1.6 mg/dL (1.9-2.7); Potassium 3.9 mmol/L (3.5-5.0); eGFR CKD-EPI 110.2 (>60)
[2022-07-19] MEDS ORDERED: Magnesium Sulf 4 GM/100 ML IV 4,000 MG/100 ML BAG IVPB ONE (16:35)
[2022-07-20] MEDS ORDERED: Lactated Ringers 1000 ml BAG 1,000 ML IV SCH (01:24)
[2022-07-20] MEDS: Prochlorperazine 5 mg/ml 2 ml VIAL (10 mg) IV PRN (05:52)
[2022-07-20] MEDS: HYDROmorphone 0.5 MG/0.5 ML SYRINGE IV SLOW PU PRN (06:00)
[2022-07-20] MEDS ORDERED: Lactated Ringers 1000 ml BAG 1,000 ML IV ONE (07:58)
[2022-07-20 11:03] VITALS: BP 94/58
[2022-07-20] MEDS: Enoxaparin 60 MG/0.6 ML SYR SUBCUT SCH (11:48)
== END 2022-07-20 13:50 | disposition home or self-care (01) | DRG 389 ==
LOC: ED 11:56 → SUATTDRO 21:33 → EDHOLD 21:33 → SSU 23:54
PROVIDERS: ADMIT Internal Medicine; ATTEND Hospitalist

== ENCOUNTER 2022-07-23 15:24 | Inpatient (IN) ==
[2022-07-23 18:54] LABS: ABS Basophils 0.1 10^3/ul (0-0.2); ABS Eosinophils 0.1 10^3/ul (0-0.6); ABS Lymphocytes 1.7 10^3/ul (1.0-4.8); ABS Monocytes 0.4 10^3/ul (0-0.8); Eosinophil % 1.1 %; Hematocrit 34 % (35-47); Hemoglobin 11.6 g/dL (12.0-16.0); Lymphocyte % 33.2 %; Mean Corpuscular HGB Conc 34 g/dL (31-36); Mean Corpuscular Hemoglobin 34 pg (27-31); Mean Corpuscular Volume 101 fL (80-97); Mean Platelet Volume 8.7 fL (7.4-10.4); Nucleated Red Blood Cells % 0.1; Platelet Count 288 10^3/uL (150-450); Red Blood Count 3.39 10^6 /uL (3.70-4.87); Red Cell Distribution Width 16 % (10-15); White Blood Count 5.2 10^3/uL (3.5-10.8)
[2022-07-23] MEDS ORDERED: Morphine 10 MG/ML VIAL (1 ml) IV ONE (18:54)
[2022-07-23] MEDS ORDERED: Prochlorperazine 5 mg/ml 2 ml VIAL (10 mg) IV ONE (18:54)
[2022-07-23] MEDS ORDERED: NS 0.9% 1000 ml BAG 2,000 ML IV ONE (18:54)
[2022-07-23 19:27] LABS: ALT 15 U/L (7-52); AST 23 U/L (13-39); Albumin/Globulin Ratio 1.2 (1-3); Alkaline Phosphatase 75 U/L (35-149); Anion Gap 8 mmol/L (2-11); Blood Urea Nitrogen 9 mg/dL (6-24); C Reactive Protein < 1.00 mg/L (<8.01); CO2 Carbon Dioxide 25 mmol/L (22-32); Calcium 8.1 mg/dL (8.6-10.3); Chloride 106 mmol/L (101-111); Creatinine, Serum 0.64 mg/dL (0.51-0.95); Globulin 2.6 g/dL (2-4); Glucose 72 mg/dL (70-100); Lipase < 10 U/L (11.0-82.0); Potassium 3.5 mmol/L (3.5-5.0); Sodium 139 mmol/L (135-145); Total Protein 5.6 g/dL (6.4-8.9)
[2022-07-24 07:21] LABS: INR 1.22 (0.88-1.18)
[2022-07-24] MEDS ORDERED: Enoxaparin 60 MG/0.6 ML SYR SUBCUT SCH (09:00)
[2022-07-24] MEDS: Lactated Ringers 1000 ml BAG 1,000 ML IV ONE ×2 (09:28→12:26)
[2022-07-24] MEDS ORDERED: Acetaminophen IV 1 GM/100ML 1,000 MG/100 ML BAG IV PRN (10:44)
[2022-07-24] MEDS: Prochlorperazine 5 mg/ml 2 ml VIAL (10 mg) IV PRN ×2 (11:42→22:56)
[2022-07-24] MEDS ORDERED: Lidocaine 1% MPF 5 ML VIAL INJ ONE (12:13)
[2022-07-24] MEDS ORDERED: Iohexol 350 (CONTRAST) 500 ML MDV IV ONE (16:26)
[2022-07-24] MEDS: Thiamine 100 MG/ML 2 ml VIAL 100 MG in NS 0.9% 50 ML 50 ML IV SCH (21:47)
[2022-07-24] MEDS: Morphine 2 MG/ML SYRINGE IV PRN (22:47)
[2022-07-25] MEDS: Lactated Ringers 1000 ml BAG 1,000 ML IV SCH ×2 (04:46→22:20)
[2022-07-25] MEDS: Morphine 2 MG/ML SYRINGE IV PRN ×3 (05:35→22:03)
[2022-07-25] MEDS: Prochlorperazine 5 mg/ml 2 ml VIAL (10 mg) IV PRN ×2 (05:36→11:33)
[2022-07-25] MEDS ORDERED: ceFAZolin 2 GM in NS PREMIX 2 GM/100 ML BAG IVPB ONE ×2 (16:01→17:43)
[2022-07-25] MEDS ORDERED: Prochlorperazine 5 mg/ml 2 ml VIAL (10 mg) IV PRN (16:59)
[2022-07-25] MEDS ORDERED: fentaNYL 100 mcg/2 ml 50 MCG/ML VIAL IV PRN (16:59)
[2022-07-25] MEDS ORDERED: Naloxone 0.4 mg VIAL 0.4 mg/ml 1 ml VIAL IV PRN (16:59)
[2022-07-25] MEDS ORDERED: Succinylcholine 200 mg VIAL 20 mg/ml 10 ml VIAL (200 mg) ONE (17:23)
[2022-07-25] MEDS ORDERED: Rocuronium 50 mg VIAL 10 mg/ml 5 ml VIAL (50 mg) ONE (17:23)
[2022-07-25] MEDS ORDERED: Dexamethasone IV 4 MG/ML VIAL 1 ml VIAL ONE (17:24)
[2022-07-25] MEDS ORDERED: Propofol 10 MG/ML 20 ML BTL ONE (17:24)
[2022-07-25] MEDS ORDERED: Ondansetron 4 mg VIAL 2 MG/ML 2 ml VIAL ONE ×2 (17:24→19:53)
[2022-07-25] MEDS ORDERED: Lidocaine 2% PF 5 ML VIAL ONE (17:25)
[2022-07-25] MEDS ORDERED: fentaNYL 100 mcg/2 ml 50 MCG/ML VIAL ONE ×3 (17:28→21:03)
[2022-07-25] MEDS ORDERED: Phenylephrine IV 10 MG/ML 1 ml VIAL ONE (18:19)
[2022-07-25] MEDS ORDERED: Prochlorperazine 5 mg/ml 2 ml VIAL (10 mg) ONE (20:39)
[2022-07-25] MEDS ORDERED: HYDROmorphone 1 MG/1 ML SYRINGE ONE (20:39)
[2022-07-25] MEDS: HYDROmorphone 1 MG/1 ML SYRINGE IV PRN ×2 (20:42→20:53)
[2022-07-25] MEDS: Thiamine 100 MG/ML 2 ml VIAL 100 MG in NS 0.9% 50 ML 50 ML IV SCH (23:46)
[2022-07-26] MEDS: Morphine 2 MG/ML SYRINGE IV PRN ×9 (00:03→23:46)
[2022-07-26] MEDS: Prochlorperazine 5 mg/ml 2 ml VIAL (10 mg) IV PRN ×3 (03:41→17:23)
[2022-07-26 06:50] LABS: ABS Lymphocytes 0.4 10^3/ul (1.0-4.8); ABS Monocytes 0.4 10^3/ul (0-0.8); ABS Neutrophils 9.6 10^3/ul (1.5-7.7); Hematocrit 30 % (35-47); Hemoglobin 9.8 g/dL (12.0-16.0); Lymphocyte % 4.2 %; Mean Corpuscular HGB Conc 33 g/dL (31-36); Mean Corpuscular Hemoglobin 35 pg (27-31); Mean Corpuscular Volume 106 fL (80-97); Mean Platelet Volume 9.1 fL (7.4-10.4); Platelet Count 176 10^3/uL (150-450); Red Blood Count 2.83 10^6 /uL (3.70-4.87); Red Cell Distribution Width 16 % (10-15); White Blood Count 10.4 10^3/uL (3.5-10.8)
[2022-07-26 06:54] LABS: ALT 11 U/L (7-52); AST 22 U/L (13-39); Albumin 2.1 g/dL (3.2-5.2); Alkaline Phosphatase 51 U/L (35-149); Anion Gap 11 mmol/L (2-11); Blood Urea Nitrogen 5 mg/dL (6-24); CO2 Carbon Dioxide 17 mmol/L (22-32); Calcium 7.4 mg/dL (8.6-10.3); Chloride 110 mmol/L (101-111); Creatinine, Serum 0.51 mg/dL (0.51-0.95); Globulin 2.1 g/dL (2-4); Glucose 96 mg/dL (70-100); Magnesium 1.1 mg/dL (1.9-2.7); Phosphorus 4.4 mg/dL (2.5-5.0); Potassium 3.7 mmol/L (3.5-5.0); Sodium 138 mmol/L (135-145); Total Protein 4.2 g/dL (6.4-8.9); eGFR CKD-EPI 117.2 (>60)
[2022-07-26 07:18] LABS: Vitamin B12 493 pg/mL (180-914)
[2022-07-26 07:28] LABS: Iron < 20 ug/dL (50-212)
[2022-07-26] MEDS: Lactated Ringers 1000 ml BAG 1,000 ML IV SCH (08:27)
[2022-07-26] MEDS ORDERED: Magnesium Sulfate IV 3 GM in NS 0.9% 100 ml BAG 100 ML IVPB ONE (09:00)
[2022-07-26] MEDS ORDERED: Heparin 5000 UNITS/ML 1 mL VIAL SUBCUT SCH (14:00)
[2022-07-26] MEDS: Thiamine 100 MG/ML 2 ml VIAL 100 MG in NS 0.9% 50 ML 50 ML IV SCH (19:23)
[2022-07-27] MEDS: Morphine 2 MG/ML SYRINGE IV PRN ×5 (04:02→21:59)
[2022-07-27] MEDS: Prochlorperazine 5 mg/ml 2 ml VIAL (10 mg) IV PRN (04:02)
[2022-07-27 07:26] LABS: ABS Eosinophils 0.1 10^3/ul (0-0.6); ABS Lymphocytes 0.8 10^3/ul (1.0-4.8); ABS Monocytes 0.3 10^3/ul (0-0.8); ABS Neutrophils 3.6 10^3/ul (1.5-7.7); Eosinophil % 1.3 %; Hematocrit 27 % (35-47); Hemoglobin 8.7 g/dL (12.0-16.0); Lymphocyte % 15.9 %; Mean Corpuscular HGB Conc 32 g/dL (31-36); Mean Corpuscular Hemoglobin 34 pg (27-31); Mean Corpuscular Volume 106 fL (80-97); Mean Platelet Volume 9.3 fL (7.4-10.4); Platelet Count 146 10^3/uL (150-450); Red Blood Count 2.56 10^6 /uL (3.70-4.87); Red Cell Distribution Width 16 % (10-15); White Blood Count 4.8 10^3/uL (3.5-10.8)
[2022-07-27 07:52] LABS: Calcium 7.3 mg/dL (8.6-10.3); Creatinine, Serum 0.48 mg/dL (0.51-0.95); Potassium 3.3 mmol/L (3.5-5.0)
[2022-07-27] MEDS ORDERED: Potassium Chloride LIQUID 20 MEQ/15 ML LIQUID PEG TUBE ONE (07:57)
[2022-07-27] MEDS ORDERED: Morphine 2 MG/ML SYRINGE IV PRN (08:26)
[2022-07-27 08:27] LABS: Magnesium 1.4 mg/dL (1.9-2.7)
[2022-07-27] MEDS ORDERED: Magnesium Sulf 4 GM/100 ML IV 4,000 MG/100 ML BAG IVPB ONE (08:28)
[2022-07-27] MEDS ORDERED: Ferric Gluconate IV 250 MG in NS 0.9% 250 ml 200 ML IVPB ONE (14:00)
[2022-07-27] MEDS: Thiamine 100 MG/ML 2 ml VIAL 100 MG in NS 0.9% 50 ML 50 ML IV SCH (19:51)
[2022-07-27] MEDS: Senna TAB 8.6 mg TAB PO SCH (21:01)
[2022-07-28] MEDS: Morphine 2 MG/ML SYRINGE IV PRN ×9 (00:47→23:28)
[2022-07-28] MEDS: Prochlorperazine 5 mg/ml 2 ml VIAL (10 mg) IV PRN (07:42)
[2022-07-28 08:32] LABS: ABS Eosinophils 0.1 10^3/ul (0-0.6); ABS Lymphocytes 0.6 10^3/ul (1.0-4.8); ABS Monocytes 0.2 10^3/ul (0-0.8); Eosinophil % 3.2 %; Hematocrit 28 % (35-47); Hemoglobin 9.3 g/dL (12.0-16.0); Lymphocyte % 15.9 %; Mean Corpuscular HGB Conc 33 g/dL (31-36); Mean Corpuscular Hemoglobin 34 pg (27-31); Mean Corpuscular Volume 104 fL (80-97); Nucleated Red Blood Cells % 0.1; Platelet Count 160 10^3/uL (150-450); Red Blood Count 2.72 10^6 /uL (3.70-4.87); Red Cell Distribution Width 16 % (10-15)
[2022-07-28 09:18] LABS: Calcium 7.7 mg/dL (8.6-10.3); Creatinine, Serum 0.41 mg/dL (0.51-0.95); Potassium 3.8 mmol/L (3.5-5.0); eGFR CKD-EPI 123.6 (>60)
[2022-07-28] MEDS ORDERED: Iron Sucrose 200 MG in NS 0.9% 100 ml BAG 100 ML IVPB ONE (12:00)
[2022-07-28] MEDS: Thiamine 100 MG/ML 2 ml VIAL 100 MG in NS 0.9% 50 ML 50 ML IV SCH (19:29)
[2022-07-28] MEDS: Senna TAB 8.6 mg TAB PO SCH (20:16)
[2022-07-29] MEDS: Morphine 2 MG/ML SYRINGE IV PRN ×7 (01:31→23:20)
[2022-07-29 06:04] LABS: ABS Eosinophils 0.1 10^3/ul (0-0.6); ABS Lymphocytes 0.8 10^3/ul (1.0-4.8); ABS Monocytes 0.4 10^3/ul (0-0.8); ABS Neutrophils 3.2 10^3/ul (1.5-7.7); Hematocrit 31 % (35-47); Hemoglobin 10.1 g/dL (12.0-16.0); Lymphocyte % 17.3 %; Mean Corpuscular HGB Conc 33 g/dL (31-36); Mean Corpuscular Hemoglobin 34 pg (27-31); Mean Corpuscular Volume 103 fL (80-97); Mean Platelet Volume 9.1 fL (7.4-10.4); Platelet Count 146 10^3/uL (150-450); Red Blood Count 2.97 10^6 /uL (3.70-4.87); Red Cell Distribution Width 15 % (10-15); White Blood Count 4.5 10^3/uL (3.5-10.8)
[2022-07-29 06:24] LABS: Calcium 7.7 mg/dL (8.6-10.3); Creatinine, Serum 0.38 mg/dL (0.51-0.95); Magnesium 1.3 mg/dL (1.9-2.7); eGFR CKD-EPI 125.9 (>60)
[2022-07-29] MEDS ORDERED: Magnesium Sulf 4 GM/100 ML IV 4,000 MG/100 ML BAG IVPB ONE (07:11)
[2022-07-29 10:49] LABS: Vitamin E 5.6 mg/L (5.5 - 17.0)
[2022-07-29] MEDS: Iron Sucrose 200 MG in NS 0.9% 100 ml BAG 100 ML IVPB SCH (13:36)
[2022-07-29] MEDS: Thiamine 100 MG/ML 2 ml VIAL 100 MG in NS 0.9% 50 ML 50 ML IV SCH (19:51)
[2022-07-29] MEDS: Senna TAB 8.6 mg TAB PO SCH (20:06)
[2022-07-29] MEDS: Prochlorperazine 5 mg/ml 2 ml VIAL (10 mg) IV PRN (23:52)
[2022-07-30] MEDS: Morphine 2 MG/ML SYRINGE IV PRN ×4 (03:20→19:38)
[2022-07-30 07:50] LABS: CO2 Carbon Dioxide 26 mmol/L (22-32); Calcium 7.8 mg/dL (8.6-10.3); Chloride 104 mmol/L (101-111); Magnesium 1.6 mg/dL (1.9-2.7); Sodium 137 mmol/L (135-145)
[2022-07-30 07:56] LABS: Blood Urea Nitrogen 7 mg/dL (6-24); Glucose 90 mg/dL (70-100); eGFR CKD-EPI 124.3 (>60)
[2022-07-30 08:23] LABS: Anion Gap 7 mmol/L (2-11)
[2022-07-30] MEDS ORDERED: Magnesium Sulfate IV 3 GM in NS 0.9% 100 ml BAG 100 ML IVPB ONE (09:38)
[2022-07-30] MEDS: Iron Sucrose 200 MG in NS 0.9% 100 ml BAG 100 ML IVPB SCH (10:43)
[2022-07-30] MEDS: Multivitamins/Minerals TAB PO SCH (13:56)
[2022-07-30] MEDS: Prochlorperazine 5 mg/ml 2 ml VIAL (10 mg) IV PRN (15:53)
[2022-07-30] MEDS: Thiamine 100 MG/ML 2 ml VIAL 100 MG in NS 0.9% 50 ML 50 ML IV SCH (19:38)
[2022-07-30] MEDS: Senna TAB 8.6 mg TAB PO SCH (21:12)
[2022-07-31] MEDS: Morphine 2 MG/ML SYRINGE IV PRN (02:55)
[2022-07-31] MEDS: Prochlorperazine 5 mg/ml 2 ml VIAL (10 mg) IV PRN ×2 (07:45→15:32)
[2022-07-31] MEDS: Multivitamins/Minerals TAB PO SCH (08:31)
[2022-07-31] MEDS: Iron Sucrose 200 MG in NS 0.9% 100 ml BAG 100 ML IVPB SCH (10:52)
[2022-07-31] MEDS: Thiamine 100 MG/ML 2 ml VIAL 100 MG in NS 0.9% 50 ML 50 ML IV SCH (19:02)
[2022-07-31] MEDS: Senna TAB 8.6 mg TAB PO SCH (21:18)
[2022-08-01] MEDS: Ondansetron ODT 4 mg TAB 4 MG TAB SL PRN ×2 (02:43→09:35)
[2022-08-01] MEDS: Multivitamins/Minerals TAB PO SCH (10:43)
[2022-08-01 10:57] VITALS: BP 123/81
== END 2022-08-01 13:45 | disposition home or self-care (01) | DRG 335 ==
LOC: ED 15:24 → SUATTDRO 07-24 07:29 → EDHOLD 07-24 07:29 → SSU 07-24 10:21
PROVIDERS: ADMIT Internal Medicine; ATTEND Internal Medicine

== ENCOUNTER 2022-08-06 14:11 | Inpatient (IN) ==
[2022-08-06] MEDS ORDERED: Morphine 4 MG/ML VIAL (1 ml) IV ONE (14:37)
[2022-08-06] MEDS ORDERED: Prochlorperazine 5 mg/ml 2 ml VIAL (10 mg) IV PRN (16:17)
[2022-08-06] MEDS ORDERED: D5W 1/2 NS KCl 20 meq 1000 ml 1,000 ML IV SCH (18:00)
[2022-08-06] MEDS ORDERED: NS 0.9% 1000 ml BAG 1,000 ML IV SCH (19:45)
[2022-08-06] MEDS: Morphine 2 MG/ML SYRINGE IV PRN (22:57)
[2022-08-07 06:51] LABS: ABS Eosinophils 0.2 10^3/ul (0-0.6); ABS Lymphocytes 1.5 10^3/ul (1.0-4.8); ABS Monocytes 0.5 10^3/ul (0-0.8); ABS Neutrophils 4.3 10^3/ul (1.5-7.7); Eosinophil % 2.8 %; Hematocrit 36 % (35-47); Hemoglobin 11.8 g/dL (12.0-16.0); Lymphocyte % 23.3 %; Mean Corpuscular HGB Conc 33 g/dL (31-36); Mean Corpuscular Hemoglobin 35 pg (27-31); Mean Corpuscular Volume 105 fL (80-97); Mean Platelet Volume 7.6 fL (7.4-10.4); Platelet Count 390 10^3/uL (150-450); Red Blood Count 3.41 10^6 /uL (3.70-4.87); Red Cell Distribution Width 16 % (10-15); White Blood Count 6.4 10^3/uL (3.5-10.8)
[2022-08-07 07:01] LABS: CO2 Carbon Dioxide 26 mmol/L (22-32); Calcium 8.1 mg/dL (8.6-10.3); Chloride 103 mmol/L (101-111); Sodium 135 mmol/L (135-145)
[2022-08-07 07:04] LABS: Anion Gap 6 mmol/L (2-11)
[2022-08-07 07:07] LABS: Blood Urea Nitrogen 12 mg/dL (6-24); Creatinine, Serum 0.56 mg/dL (0.51-0.95); Glucose 79 mg/dL (70-100); eGFR CKD-EPI 114.6 (>60)
[2022-08-07] MEDS: Cholecalciferol (VIT D3) 1,000 unit TAB PO SCH (10:26)
[2022-08-07] MEDS: Multivitamins/Minerals TAB PO SCH (10:27)
[2022-08-07] MEDS ORDERED: Potassium Chloride LIQUID 20 MEQ/15 ML LIQUID PO ONE (17:24)
[2022-08-08] MEDS: Cholecalciferol (VIT D3) 1,000 unit TAB PO SCH (07:49)
[2022-08-08] MEDS: Multivitamins/Minerals TAB PO SCH (07:49)
[2022-08-08] MEDS ORDERED: Lidocaine 1% MPF 5 ML VIAL INJ ONE (08:48)
[2022-08-08] MEDS: Pantoprazole VIAL 40 MG VIAL IV SCH ×2 (14:44→20:25)
[2022-08-08] MEDS: Morphine 2 MG/ML SYRINGE IV PRN ×3 (14:58→23:20)
[2022-08-08 15:56] LABS: Hematocrit 33 % (35-47); Hemoglobin 11.1 g/dL (12.0-16.0); Mean Corpuscular HGB Conc 34 g/dL (31-36); Mean Corpuscular Hemoglobin 35 pg (27-31); Mean Corpuscular Volume 103 fL (80-97); Mean Platelet Volume 7.6 fL (7.4-10.4); Platelet Count 412 10^3/uL (150-450); Red Blood Count 3.21 10^6 /uL (3.70-4.87); Red Cell Distribution Width 16 % (10-15); White Blood Count 6.8 10^3/uL (3.5-10.8)
[2022-08-08] MEDS: D5W 1/2 NS KCl 20 meq 1000 ml 1,000 ML IV SCH (16:31)
[2022-08-08 16:46] LABS: Folate 19.5 ng/mL (5.90-24.80)
[2022-08-08 16:50] LABS: Vitamin D Total 25(OH) 26.3 ng/mL (20-50)
[2022-08-08 16:57] LABS: Creatinine, Serum 0.5 mg/dL (0.51-0.95); Magnesium 1.7 mg/dL (1.9-2.7); Potassium 3.5 mmol/L (3.5-5.0); eGFR CKD-EPI 117.8 (>60)
[2022-08-08 17:03] LABS: High Sensitivity Troponin 1 Hr 3 pg/mL (<15)
[2022-08-08] MEDS ORDERED: Magnesium Sulfate 2 gm BAG 2 GM/50 ML BAG IVPB ONE (18:43)
[2022-08-09] MEDS: D5W 1/2 NS KCl 20 meq 1000 ml 1,000 ML IV SCH ×3 (03:23→22:12)
[2022-08-09] MEDS: Morphine 2 MG/ML SYRINGE IV PRN ×4 (05:36→22:09)
[2022-08-09 06:20] LABS: Calcium 7.5 mg/dL (8.6-10.3); Creatinine, Serum 0.53 mg/dL (0.51-0.95); Potassium 3.8 mmol/L (3.5-5.0); eGFR CKD-EPI 116.2 (>60)
[2022-08-09] MEDS: Pantoprazole VIAL 40 MG VIAL IV SCH ×2 (08:41→22:00)
[2022-08-09] MEDS: Multivitamins/Minerals TAB PO SCH (08:49)
[2022-08-09] MEDS: Cholecalciferol (VIT D3) 1,000 unit TAB PO SCH (08:49)
[2022-08-10] MEDS: D5W 1/2 NS KCl 20 meq 1000 ml 1,000 ML IV SCH ×2 (02:51→11:05)
[2022-08-10 07:11] LABS: ABS Eosinophils 0.1 10^3/ul (0-0.6); ABS Lymphocytes 1.3 10^3/ul (1.0-4.8); ABS Monocytes 0.3 10^3/ul (0-0.8); ABS Neutrophils 1.9 10^3/ul (1.5-7.7); Hematocrit 29 % (35-47); Lymphocyte % 34.7 %; Mean Corpuscular HGB Conc 34 g/dL (31-36); Mean Corpuscular Hemoglobin 36 pg (27-31); Mean Corpuscular Volume 105 fL (80-97); Mean Platelet Volume 7.7 fL (7.4-10.4); Platelet Count 342 10^3/uL (150-450); Red Blood Count 2.77 10^6 /uL (3.70-4.87); Red Cell Distribution Width 16 % (10-15); White Blood Count 3.7 10^3/uL (3.5-10.8)
[2022-08-10 07:22] LABS: Calcium 7.6 mg/dL (8.6-10.3); Creatinine, Serum 0.49 mg/dL (0.51-0.95); Potassium 4.1 mmol/L (3.5-5.0); eGFR CKD-EPI 118.4 (>60)
[2022-08-10] MEDS: Cholecalciferol (VIT D3) 1,000 unit TAB PO SCH (09:27)
[2022-08-10] MEDS: Pantoprazole VIAL 40 MG VIAL IV SCH ×2 (09:28→21:12)
[2022-08-10] MEDS: Multivitamins/Minerals TAB PO SCH (09:28)
[2022-08-10] MEDS ORDERED: Bacitracin OINTMENT TUBE TOPICAL SCH (10:00)
[2022-08-10] MEDS ORDERED: Lactated Ringers 1000 ml BAG 1,000 ML IV ONE (12:31)
[2022-08-11 00:06] VITALS: BP 99/66
[2022-08-11] MEDS: Multivitamins/Minerals TAB PO SCH (08:58)
[2022-08-11] MEDS: Cholecalciferol (VIT D3) 1,000 unit TAB PO SCH (08:58)
[2022-08-11] MEDS: Pantoprazole VIAL 40 MG VIAL IV SCH (08:59)
== END 2022-08-11 09:55 | disposition home or self-care (01) | DRG 393 ==
LOC: ED 14:11 → SUATTDRO 16:03 → EDHOLD 16:03 → SSU 17:44
PROVIDERS: ADMIT Internal Medicine; ATTEND Internal Medicine

== ENCOUNTER 2022-08-25 18:10 | Inpatient (IN) ==
[2022-08-25] MEDS ORDERED: Acetaminophen IV 1 GM/100ML 1,000 MG/100 ML BAG IV ONE (20:28)
[2022-08-25] MEDS ORDERED: NS 0.9% 1000 ml BAG 1,000 ML IV ONE (22:45)
[2022-08-25] MEDS ORDERED: Ondansetron 4 mg VIAL 2 MG/ML 2 ml VIAL ONE (22:51)
[2022-08-25] MEDS ORDERED: Ondansetron 4 mg VIAL 2 MG/ML 2 ml VIAL IV ONE (22:53)
[2022-08-25 23:13] LABS: ABS Lymphocytes 1.5 10^3/ul (1.0-4.8); ABS Monocytes 0.6 10^3/ul (0-0.8); Eosinophil % 0.2 %; Hematocrit 28 % (35-47); Hemoglobin 9.2 g/dL (12.0-16.0); Lymphocyte % 18.4 %; Mean Corpuscular HGB Conc 33 g/dL (31-36); Mean Corpuscular Hemoglobin 34 pg (27-31); Mean Corpuscular Volume 103 fL (80-97); Mean Platelet Volume 8.2 fL (7.4-10.4); Platelet Count 302 10^3/uL (150-450); Red Blood Count 2.72 10^6 /uL (3.70-4.87); Red Cell Distribution Width 15 % (10-15); White Blood Count 8.2 10^3/uL (3.5-10.8)
[2022-08-25 23:50] LABS: ALT 69 U/L (7-52); AST 27 U/L (13-39); Albumin 2.5 g/dL (3.2-5.2); Albumin/Globulin Ratio 0.9 (1-3); Alkaline Phosphatase 138 U/L (35-149); Blood Urea Nitrogen 15 mg/dL (6-24); C Reactive Protein 50.72 mg/L (<8.01); CO2 Carbon Dioxide 30 mmol/L (22-32); Calcium 7.1 mg/dL (8.6-10.3); Chloride 97 mmol/L (101-111); Creatinine, Serum 0.55 mg/dL (0.51-0.95); Globulin 2.8 g/dL (2-4); Glucose 88 mg/dL (70-100); Lipase < 10 U/L (11.0-82.0); Sodium 135 mmol/L (135-145); Total Protein 5.3 g/dL (6.4-8.9); eGFR CKD-EPI 115.1 (>60)
[2022-08-25 23:55] LABS: Anion Gap 8 mmol/L (2-11); Potassium 2.5 mmol/L (3.5-5.0)
[2022-08-26] MEDS ORDERED: Iohexol 350 (CONTRAST) 500 ML MDV IV ONE (00:13)
[2022-08-26] MEDS ORDERED: Potassium Chlor 10 meq TAB PO ONE (00:40)
[2022-08-26] MEDS ORDERED: CALCIUM GLUCONATE 1GM/50ML NS 1 GM/50 ML BAG IV ONE ×2 (00:41→11:30)
[2022-08-26] MEDS ORDERED: Potassium Chloride LIQUID 20 MEQ/15 ML LIQUID PO ONE (00:41)
[2022-08-26] MEDS ORDERED: NS 0.9% 1000 ml BAG 1,000 ML IV ONE (00:45)
[2022-08-26] MEDS ORDERED: Metoclopramide 5 MG/ML VIAL (10 mg) IV ONE (00:45)
[2022-08-26 04:23] LABS: HCG Pregnancy 1.13 mIU/mL
[2022-08-26] MEDS ORDERED: KCL 10 MEQ/50 ML IVPREMIX 10 MEQ/50 ML BAG IV ONE (06:44)
[2022-08-26] MEDS ORDERED: Pantoprazole VIAL 40 MG VIAL IV SCH ×2 (08:00→08:29)
[2022-08-26] MEDS ORDERED: Enoxaparin 60 MG/0.6 ML SYR SUBCUT SCH (08:00)
[2022-08-26] MEDS: Ondansetron 4 mg VIAL 2 MG/ML 2 ml VIAL IV PRN ×2 (08:40→16:41)
[2022-08-26] MEDS: Pantoprazole VIAL 40 MG VIAL IV SCH ×2 (09:10→21:13)
[2022-08-26 09:19] LABS: ABS Lymphocytes 1.5 10^3/ul (1.0-4.8); ABS Monocytes 0.5 10^3/ul (0-0.8); ABS Neutrophils 3.3 10^3/ul (1.5-7.7); Eosinophil % 0.9 %; Hematocrit 24 % (35-47); Hemoglobin 7.9 g/dL (12.0-16.0); Lymphocyte % 28.1 %; Mean Corpuscular HGB Conc 33 g/dL (31-36); Mean Corpuscular Hemoglobin 34 pg (27-31); Mean Corpuscular Volume 104 fL (80-97); Mean Platelet Volume 8.1 fL (7.4-10.4); Nucleated Red Blood Cells % 0.1; Platelet Count 246 10^3/uL (150-450); Red Blood Count 2.32 10^6 /uL (3.70-4.87); Red Cell Distribution Width 16 % (10-15); White Blood Count 5.4 10^3/uL (3.5-10.8)
[2022-08-26 09:55] LABS: Creatinine, Serum 0.5 mg/dL (0.51-0.95); Magnesium 1.2 mg/dL (1.9-2.7); Potassium 3.5 mmol/L (3.5-5.0); eGFR CKD-EPI 117.8 (>60)
[2022-08-26 09:59] LABS: Calcium 6.4 mg/dL (8.6-10.3)
[2022-08-26] MEDS: D5LR 20 MEQ KCL 1000 ml BAG 1,000 ML IV SCH (10:01)
[2022-08-26 10:11] LABS: HCG Pregnancy 0.89 mIU/mL
[2022-08-26] MEDS ORDERED: Magnesium Sulfate 2 gm BAG 2 GM/50 ML BAG IVPB ONE (10:11)
[2022-08-27] MEDS: D5LR 20 MEQ KCL 1000 ml BAG 1,000 ML IV SCH ×2 (01:09→10:14)
[2022-08-27] MEDS: Ondansetron 4 mg VIAL 2 MG/ML 2 ml VIAL IV PRN ×2 (01:17→14:27)
[2022-08-27 06:22] LABS: Urine Appearance Clear; Urine Bilirubin Negative (Negative); Urine Blood 1+ (Negative); Urine Color Amber; Urine Glucose Negative (Negative); Urine Ketones Negative (Negative); Urine Nitrite Negative (Negative); Urine Protein Negative (Negative); Urine Specific Gravity 1.048 (1.002-1.030); Urine Urobilinogen Positive (Negative)
[2022-08-27 06:26] LABS: Urine Bacteria Absent (Absent); Urine Red Blood Cell 1+(3-5/hpf) (Absent); Urine Squamous Epithelial Cell Present (Absent); Urine White Blood Cell Trace(0-5/hpf) (Absent)
[2022-08-27] MEDS: Pantoprazole VIAL 40 MG VIAL IV SCH ×2 (08:43→20:57)
[2022-08-27] MEDS ORDERED: Magnesium Sulfate IV 3 GM in NS 0.9% 100 ml BAG 100 ML IVPB ONE (10:01)
[2022-08-27 13:02] LABS: ABS Eosinophils 0.1 10^3/ul (0-0.6); ABS Lymphocytes 1.4 10^3/ul (1.0-4.8); ABS Monocytes 0.4 10^3/ul (0-0.8); ABS Neutrophils 2.5 10^3/ul (1.5-7.7); Eosinophil % 1.5 %; Hematocrit 23 % (35-47); Hemoglobin 7.5 g/dL (12.0-16.0); Lymphocyte % 32.7 %; Mean Corpuscular HGB Conc 32 g/dL (31-36); Mean Corpuscular Hemoglobin 34 pg (27-31); Mean Corpuscular Volume 106 fL (80-97); Mean Platelet Volume 8.3 fL (7.4-10.4); Nucleated Red Blood Cells % 0.1; Platelet Count 251 10^3/uL (150-450); Red Blood Count 2.21 10^6 /uL (3.70-4.87); Red Cell Distribution Width 16 % (10-15); White Blood Count 4.4 10^3/uL (3.5-10.8)
[2022-08-27 13:06] LABS: Hematocrit 23 % (35-47); Hemoglobin 7.4 g/dL (12.0-16.0)
[2022-08-27 13:23] LABS: C Reactive Protein 26.02 mg/L (<8.01); Calcium 7.1 mg/dL (8.6-10.3); Creatinine, Serum 0.54 mg/dL (0.51-0.95); Magnesium 2.1 mg/dL (1.9-2.7); Potassium 3.2 mmol/L (3.5-5.0); eGFR CKD-EPI 115.6 (>60)
[2022-08-27 13:38] LABS: TSH Ultra Thyroid Stim Horm 7.55 mcIU/mL (0.34-5.60)
[2022-08-27] MEDS: KCL 20 MEQ/100 ML IVPREMIX 20 MEQ/100 ML BAG IV SCH ×2 (16:25→20:57)
[2022-08-28] MEDS ORDERED: Potassium Chlor 20 meq TAB.ER PO ONE (07:28)
[2022-08-28] MEDS: D5LR 20 MEQ KCL 1000 ml BAG 1,000 ML IV SCH ×2 (07:29→13:45)
[2022-08-28 13:42] LABS: ABS Lymphocytes 0.8 10^3/ul (1.0-4.8); ABS Monocytes 0.3 10^3/ul (0-0.8); ABS Neutrophils 2.6 10^3/ul (1.5-7.7); Eosinophil % 0.6 %; Hematocrit 23 % (35-47); Hemoglobin 7.5 g/dL (12.0-16.0); Lymphocyte % 21.3 %; Mean Corpuscular HGB Conc 33 g/dL (31-36); Mean Corpuscular Hemoglobin 35 pg (27-31); Mean Corpuscular Volume 107 fL (80-97); Nucleated Red Blood Cells % 0.1; Platelet Count 233 10^3/uL (150-450); Red Blood Count 2.15 10^6 /uL (3.70-4.87); Red Cell Distribution Width 17 % (10-15); White Blood Count 3.6 10^3/uL (3.5-10.8)
[2022-08-28] MEDS: Ondansetron 4 mg VIAL 2 MG/ML 2 ml VIAL IV PRN (13:45)
[2022-08-28] MEDS: Pantoprazole VIAL 40 MG VIAL IV SCH ×2 (13:46→20:59)
[2022-08-28 14:41] LABS: Calcium 7.1 mg/dL (8.6-10.3); Creatinine, Serum 0.56 mg/dL (0.51-0.95); Magnesium 1.5 mg/dL (1.9-2.7); Potassium 3.7 mmol/L (3.5-5.0); eGFR CKD-EPI 114.6 (>60)
[2022-08-28] MEDS ORDERED: Magnesium Sulfate IV 3 GM in NS 0.9% 100 ml BAG 100 ML IVPB ONE (14:55)
[2022-08-28] MEDS ORDERED: KCL 20 MEQ/100 ML IVPREMIX 20 MEQ/100 ML BAG IV SCH (15:00)
[2022-08-28] MEDS: Acetaminophen IV 1 GM/100ML 1,000 MG/100 ML BAG IV PRN (17:03)
[2022-08-29] MEDS: D5LR 20 MEQ KCL 1000 ml BAG 1,000 ML IV SCH ×3 (00:24→22:01)
[2022-08-29 07:10] LABS: ABS Eosinophils 0.1 10^3/ul (0-0.6); ABS Lymphocytes 1.2 10^3/ul (1.0-4.8); ABS Monocytes 0.3 10^3/ul (0-0.8); ABS Neutrophils 1.5 10^3/ul (1.5-7.7); Eosinophil % 1.8 %; Hematocrit 23 % (35-47); Hemoglobin 7.5 g/dL (12.0-16.0); Lymphocyte % 39.8 %; Mean Corpuscular HGB Conc 33 g/dL (31-36); Mean Corpuscular Hemoglobin 35 pg (27-31); Mean Corpuscular Volume 106 fL (80-97); Mean Platelet Volume 8.2 fL (7.4-10.4); Platelet Count 211 10^3/uL (150-450); Red Blood Count 2.17 10^6 /uL (3.70-4.87); Red Cell Distribution Width 17 % (10-15); White Blood Count 3.1 10^3/uL (3.5-10.8)
[2022-08-29] MEDS ORDERED: Magnesium Sulfate IV 3 GM in NS 0.9% 100 ml BAG 100 ML IVPB ONE (07:17)
[2022-08-29 07:24] LABS: Creatinine, Serum 0.58 mg/dL (0.51-0.95); Magnesium 1.8 mg/dL (1.9-2.7); Potassium 3.7 mmol/L (3.5-5.0); eGFR CKD-EPI 113.7 (>60)
[2022-08-29] MEDS ORDERED: Magnesium Sulfate 2 gm BAG 2 GM/50 ML BAG IVPB ONE (07:33)
[2022-08-29] MEDS: Pantoprazole VIAL 40 MG VIAL IV SCH ×2 (08:55→20:31)
[2022-08-29 09:31] LABS: Activated Partial Thrombo Time 32.1 seconds (26.0-38.0); INR 1.24 (0.88-1.18)
[2022-08-29] MEDS: Ondansetron 4 mg VIAL 2 MG/ML 2 ml VIAL IV PRN (14:31)
[2022-08-29] MEDS: Acetaminophen IV 1 GM/100ML 1,000 MG/100 ML BAG IV PRN (14:33)
[2022-08-29] MEDS ORDERED: Midazolam 10 mg/10 ml VIAL 1 mg/ml 10 ml VIAL (10 mg) ONE (15:20)
[2022-08-29] MEDS ORDERED: fentaNYL 100 mcg/2 ml 50 MCG/ML VIAL ONE (15:20)
[2022-08-29] MEDS ORDERED: Meperidine 50 mg/ml SYRINGE 1 ml ONE (16:01)
[2022-08-29] MEDS ORDERED: Midazolam 10 mg/10 ml VIAL 1 mg/ml 10 ml VIAL (10 mg) IV SLOW PU ONE (16:45)
[2022-08-29] MEDS ORDERED: Meperidine 50 mg/ml SYRINGE 1 ml IV ONE (16:47)
[2022-08-29 16:58] LABS: Methylmalonic Acid 0.13 nmol/mL (<=0.40)
[2022-08-30] MEDS ORDERED: Lactated Ringers 1000 ml BAG 500 ML IV ONE (04:26)
[2022-08-30 07:19] LABS: Calcium 7.1 mg/dL (8.6-10.3); Magnesium 1.6 mg/dL (1.9-2.7); Potassium 4.1 mmol/L (3.5-5.0)
[2022-08-30 07:24] LABS: Creatinine, Serum 0.54 mg/dL (0.51-0.95); eGFR CKD-EPI 115.6 (>60)
[2022-08-30] MEDS ORDERED: Magnesium Sulfate IV 3 GM in NS 0.9% 100 ml BAG 100 ML IVPB ONE (08:14)
[2022-08-30] MEDS: D5LR 20 MEQ KCL 1000 ml BAG 1,000 ML IV SCH ×2 (09:27→23:33)
[2022-08-30] MEDS: Pantoprazole VIAL 40 MG VIAL IV SCH ×2 (09:34→22:21)
[2022-08-30] MEDS ORDERED: Midazolam 2 mg/2 ml VIAL 1 mg/ml 2 ml VIAL (2 mg) ONE (14:01)
[2022-08-30] MEDS ORDERED: Propofol 10 MG/ML 20 ML BTL ONE (14:08)
[2022-08-30] MEDS ORDERED: Lidocaine 2% PF 5 ML VIAL ONE (14:21)
[2022-08-30] MEDS: Sucralfate 1 gm SUSP 1 GM/10 ML UDC PO SCH (22:20)
[2022-08-31] MEDS: Pantoprazole VIAL 40 MG VIAL IV SCH ×2 (08:49→20:27)
[2022-08-31] MEDS: Sucralfate 1 gm SUSP 1 GM/10 ML UDC PO SCH ×4 (08:49→20:27)
[2022-08-31] MEDS: D5LR 20 MEQ KCL 1000 ml BAG 1,000 ML IV SCH ×2 (09:31→22:24)
[2022-08-31 09:53] LABS: ABS Eosinophils 0.1 10^3/ul (0-0.6); ABS Monocytes 0.3 10^3/ul (0-0.8); ABS Neutrophils 1.9 10^3/ul (1.5-7.7); Eosinophil % 1.6 %; Hematocrit 24 % (35-47); Hemoglobin 7.7 g/dL (12.0-16.0); Lymphocyte % 30.1 %; Mean Corpuscular HGB Conc 32 g/dL (31-36); Mean Corpuscular Hemoglobin 34 pg (27-31); Mean Corpuscular Volume 106 fL (80-97); Mean Platelet Volume 8.6 fL (7.4-10.4); Nucleated Red Blood Cells % 0.1; Platelet Count 196 10^3/uL (150-450); Red Blood Count 2.26 10^6 /uL (3.70-4.87); Red Cell Distribution Width 19 % (10-15); White Blood Count 3.3 10^3/uL (3.5-10.8)
[2022-08-31 10:01] LABS: Calcium 7.2 mg/dL (8.6-10.3); Creatinine, Serum 0.59 mg/dL (0.51-0.95); Magnesium 1.6 mg/dL (1.9-2.7); Potassium 4.4 mmol/L (3.5-5.0); eGFR CKD-EPI 113.2 (>60)
[2022-08-31] MEDS ORDERED: Magnesium Sulf 4 GM/100 ML IV 4,000 MG/100 ML BAG IVPB ONE (10:51)
[2022-09-01] MEDS: Sucralfate 1 gm SUSP 1 GM/10 ML UDC PO SCH ×4 (07:43→20:30)
[2022-09-01] MEDS: D5LR 20 MEQ KCL 1000 ml BAG 1,000 ML IV SCH ×2 (08:27→18:33)
[2022-09-01] MEDS ORDERED: Alteplase (CATHFLO) 2 MG VIAL IV ONE (09:22)
[2022-09-01] MEDS: Pantoprazole VIAL 40 MG VIAL IV SCH ×2 (09:37→20:30)
[2022-09-01] MEDS: Multivitamins ADULT w/MIN LIQ 15 ML UDC PO SCH (11:14)
[2022-09-01] MEDS: Ondansetron 4 mg VIAL 2 MG/ML 2 ml VIAL IV PRN ×2 (11:33→20:30)
[2022-09-01 11:36] LABS: Hematocrit 25 % (35-47); Hemoglobin 7.9 g/dL (12.0-16.0); Mean Corpuscular HGB Conc 33 g/dL (31-36); Mean Corpuscular Hemoglobin 34 pg (27-31); Mean Corpuscular Volume 105 fL (80-97); Mean Platelet Volume 8.3 fL (7.4-10.4); Platelet Count 186 10^3/uL (150-450); Red Blood Count 2.33 10^6 /uL (3.70-4.87); Red Cell Distribution Width 19 % (10-15); White Blood Count 3.1 10^3/uL (3.5-10.8)
[2022-09-01 11:55] LABS: ALT 21 U/L (7-52); AST 23 U/L (13-39); Alkaline Phosphatase 85 U/L (35-149); Blood Urea Nitrogen 2 mg/dL (6-24); CO2 Carbon Dioxide 28 mmol/L (22-32); Calcium 7.3 mg/dL (8.6-10.3); Chloride 108 mmol/L (101-111); Creatinine, Serum 0.55 mg/dL (0.51-0.95); Glucose 99 mg/dL (70-100); Magnesium 1.7 mg/dL (1.9-2.7); Potassium 4.3 mmol/L (3.5-5.0); Sodium 136 mmol/L (135-145); Total Protein 3.9 g/dL (6.4-8.9); eGFR CKD-EPI 115.1 (>60)
[2022-09-01 12:00] LABS: Albumin < 1.7 g/dL (3.2-5.2); Albumin/Globulin Ratio 0.8 (1-3); Globulin 2.2 g/dL (2-4)
[2022-09-01 12:02] LABS: ABS Eosinophils 0.1 10^3/ul (0-0.6); ABS Lymphocytes 1.3 10^3/ul (1.0-4.8); ABS Monocytes 0.3 10^3/ul (0-0.8); ABS Neutrophils 1.4 10^3/ul (1.5-7.7); Eosinophil % 1.9 %
[2022-09-01] MEDS ORDERED: Magnesium Sulfate IV 3 GM in NS 0.9% 100 ml BAG 100 ML IVPB ONE (15:05)
[2022-09-02] MEDS: Ondansetron 4 mg VIAL 2 MG/ML 2 ml VIAL IV PRN ×2 (04:15→13:11)
[2022-09-02] MEDS: D5LR 20 MEQ KCL 1000 ml BAG 1,000 ML IV SCH ×2 (04:17→17:13)
[2022-09-02] MEDS: Sucralfate 1 gm SUSP 1 GM/10 ML UDC PO SCH ×4 (07:29→21:05)
[2022-09-02] MEDS: Multivitamins ADULT w/MIN LIQ 15 ML UDC PO SCH (09:15)
[2022-09-02] MEDS: Pantoprazole VIAL 40 MG VIAL IV SCH ×2 (09:15→21:05)
[2022-09-02 14:36] LABS: ABS Basophils 0.1 10^3/ul (0-0.2); ABS Monocytes 0.3 10^3/ul (0-0.8); ABS Neutrophils 2.3 10^3/ul (1.5-7.7); Hematocrit 23 % (35-47); Hemoglobin 7.4 g/dL (12.0-16.0); Lymphocyte % 27.3 %; Mean Corpuscular HGB Conc 32 g/dL (31-36); Mean Corpuscular Hemoglobin 33 pg (27-31); Mean Corpuscular Volume 105 fL (80-97); Mean Platelet Volume 8.8 fL (7.4-10.4); Nucleated Red Blood Cells % 0.1; Platelet Count 158 10^3/uL (150-450); Red Blood Count 2.22 10^6 /uL (3.70-4.87); Red Cell Distribution Width 18 % (10-15); White Blood Count 3.7 10^3/uL (3.5-10.8)
[2022-09-02 14:47] LABS: Blood Urea Nitrogen 4 mg/dL (6-24); CO2 Carbon Dioxide 28 mmol/L (22-32); Calcium 7.1 mg/dL (8.6-10.3); Chloride 108 mmol/L (101-111); Creatinine, Serum 0.56 mg/dL (0.51-0.95); Glucose 86 mg/dL (70-100); Magnesium 1.7 mg/dL (1.9-2.7); Potassium 4.4 mmol/L (3.5-5.0); Sodium 136 mmol/L (135-145); eGFR CKD-EPI 114.6 (>60)
[2022-09-02] MEDS ORDERED: Magnesium Sulf 4 GM/100 ML IV 4,000 MG/100 ML BAG IVPB ONE (17:27)
[2022-09-03] MEDS: D5LR 20 MEQ KCL 1000 ml BAG 1,000 ML IV SCH (03:34)
[2022-09-03 05:48] LABS: ABS Lymphocytes 1.1 10^3/ul (1.0-4.8); ABS Monocytes 0.4 10^3/ul (0-0.8); ABS Neutrophils 1.3 10^3/ul (1.5-7.7); Eosinophil % 1.5 %; Hematocrit 21 % (35-47); Hemoglobin 6.7 g/dL (12.0-16.0); Lymphocyte % 39.5 %; Mean Corpuscular HGB Conc 31 g/dL (31-36); Mean Corpuscular Hemoglobin 33 pg (27-31); Mean Corpuscular Volume 106 fL (80-97); Mean Platelet Volume 8.9 fL (7.4-10.4); Platelet Count 127 10^3/uL (150-450); Red Blood Count 2.01 10^6 /uL (3.70-4.87); Red Cell Distribution Width 18 % (10-15); White Blood Count 2.8 10^3/uL (3.5-10.8)
[2022-09-03 06:35] LABS: Calcium 6.8 mg/dL (8.6-10.3); Creatinine, Serum 0.56 mg/dL (0.51-0.95); Magnesium 1.8 mg/dL (1.9-2.7); eGFR CKD-EPI 114.6 (>60)
[2022-09-03 06:37] LABS: Potassium 6.1 mmol/L (3.5-5.0)
[2022-09-03] MEDS: Multivitamins ADULT w/MIN LIQ 15 ML UDC PO SCH (07:43)
[2022-09-03] MEDS: Pantoprazole VIAL 40 MG VIAL IV SCH ×2 (07:43→19:52)
[2022-09-03] MEDS: Sucralfate 1 gm SUSP 1 GM/10 ML UDC PO SCH ×4 (07:51→20:04)
[2022-09-03 08:25] LABS: Blood Urea Nitrogen 6 mg/dL (6-24); CO2 Carbon Dioxide 31 mmol/L (22-32); Calcium 7.1 mg/dL (8.6-10.3); Chloride 105 mmol/L (101-111); Creatinine, Serum 0.55 mg/dL (0.51-0.95); Glucose 84 mg/dL (70-100); Potassium 4.4 mmol/L (3.5-5.0); Sodium 136 mmol/L (135-145); eGFR CKD-EPI 115.1 (>60)
[2022-09-03 13:03] LABS: Hematocrit 23 % (35-47); Hemoglobin 7.3 g/dL (12.0-16.0)
[2022-09-03] MEDS ORDERED: Ferric Gluconate IV 250 MG in NS 0.9% 250 ml 200 ML IVPB ONE (15:16)
[2022-09-03] MEDS: Ondansetron 4 mg VIAL 2 MG/ML 2 ml VIAL IV PRN (19:43)
[2022-09-04] MEDS: Multivitamins ADULT w/MIN LIQ 15 ML UDC PO SCH ×2 (08:11→08:12)
[2022-09-04] MEDS: Sucralfate 1 gm SUSP 1 GM/10 ML UDC PO SCH ×4 (08:11→20:32)
[2022-09-04] MEDS: Pantoprazole VIAL 40 MG VIAL IV SCH ×2 (08:11→20:40)
[2022-09-04] MEDS: Ondansetron 4 mg VIAL 2 MG/ML 2 ml VIAL IV PRN (09:00)
[2022-09-04 09:42] LABS: Hematocrit 23 % (35-47); Hemoglobin 7.5 g/dL (12.0-16.0); Mean Corpuscular HGB Conc 32 g/dL (31-36); Mean Corpuscular Hemoglobin 34 pg (27-31); Mean Corpuscular Volume 106 fL (80-97); Mean Platelet Volume 9.3 fL (7.4-10.4); Platelet Count 128 10^3/uL (150-450); Red Cell Distribution Width 18 % (10-15); White Blood Count 2.6 10^3/uL (3.5-10.8)
[2022-09-04] MEDS ORDERED: Magnesium Hydroxide LIQ 30 ML UDC PO PRN (11:04)
[2022-09-04] MEDS ORDERED: Polyethylene Glycol 3350 17 GM PACKET PO PRN (11:04)
[2022-09-05] MEDS: Sucralfate 1 gm SUSP 1 GM/10 ML UDC PO SCH ×4 (07:31→21:53)
[2022-09-05] MEDS: Pantoprazole VIAL 40 MG VIAL IV SCH ×2 (09:23→21:54)
[2022-09-05] MEDS: Multivitamins ADULT w/MIN LIQ 15 ML UDC PO SCH (09:55)
[2022-09-05] MEDS ORDERED: Morphine 2 MG/ML SYRINGE IV PRN (11:00)
[2022-09-05] MEDS: Morphine ORAL.SOLN 10 mg 2 mg/ml UDC 5 ml (10 mg) PO PRN ×2 (13:43→18:12)
[2022-09-06] MEDS: Morphine ORAL.SOLN 10 mg 2 mg/ml UDC 5 ml (10 mg) PO PRN ×3 (05:41→17:01)
[2022-09-06 05:47] LABS: ABS Lymphocytes 1.2 10^3/ul (1.0-4.8); ABS Monocytes 0.3 10^3/ul (0-0.8); ABS Neutrophils 1.3 10^3/ul (1.5-7.7); Eosinophil % 0.9 %; Hematocrit 22 % (35-47); Hemoglobin 7.1 g/dL (12.0-16.0); Lymphocyte % 43.8 %; Mean Corpuscular HGB Conc 32 g/dL (31-36); Mean Corpuscular Hemoglobin 33 pg (27-31); Mean Corpuscular Volume 105 fL (80-97); Mean Platelet Volume 9.5 fL (7.4-10.4); Platelet Count 120 10^3/uL (150-450); Red Blood Count 2.14 10^6 /uL (3.70-4.87); Red Cell Distribution Width 17 % (10-15); White Blood Count 2.8 10^3/uL (3.5-10.8)
[2022-09-06] MEDS: Sucralfate 1 gm SUSP 1 GM/10 ML UDC PO SCH ×4 (07:23→21:20)
[2022-09-06] MEDS: Pantoprazole VIAL 40 MG VIAL IV SCH ×2 (09:10→21:21)
[2022-09-06] MEDS: Multivitamins ADULT w/MIN LIQ 15 ML UDC PO SCH (09:15)
[2022-09-06] MEDS ORDERED: Alteplase (CATHFLO) 2 MG VIAL ONE (10:05)
[2022-09-06] MEDS: Ondansetron 4 mg VIAL 2 MG/ML 2 ml VIAL IV PRN (12:55)
[2022-09-06 13:22] LABS: High Sensitivity Troponin 1 Hr < 3 pg/mL (<15)
[2022-09-07] MEDS: Morphine ORAL.SOLN 10 mg 2 mg/ml UDC 5 ml (10 mg) PO PRN ×4 (06:18→22:45)
[2022-09-07 06:42] LABS: ABS Lymphocytes 1.4 10^3/ul (1.0-4.8); ABS Monocytes 0.3 10^3/ul (0-0.8); ABS Neutrophils 1.5 10^3/ul (1.5-7.7); Eosinophil % 0.8 %; Hematocrit 21 % (35-47); Hemoglobin 6.9 g/dL (12.0-16.0); Lymphocyte % 43.6 %; Mean Corpuscular HGB Conc 32 g/dL (31-36); Mean Corpuscular Hemoglobin 34 pg (27-31); Mean Corpuscular Volume 104 fL (80-97); Mean Platelet Volume 9.6 fL (7.4-10.4); Platelet Count 116 10^3/uL (150-450); Red Blood Count 2.04 10^6 /uL (3.70-4.87); Red Cell Distribution Width 17 % (10-15); White Blood Count 3.3 10^3/uL (3.5-10.8)
[2022-09-07 07:21] LABS: Calcium 6.7 mg/dL (8.6-10.3); Creatinine, Serum 0.53 mg/dL (0.51-0.95); Magnesium 1.4 mg/dL (1.9-2.7); Potassium 3.9 mmol/L (3.5-5.0); eGFR CKD-EPI 116.2 (>60)
[2022-09-07] MEDS: Sucralfate 1 gm SUSP 1 GM/10 ML UDC PO SCH ×4 (07:43→22:45)
[2022-09-07] MEDS ORDERED: Magnesium Sulfate 2 gm BAG 2 GM/50 ML BAG IVPB ONE (08:10)
[2022-09-07] MEDS: Multivitamins/Minerals TAB PO SCH (08:47)
[2022-09-07] MEDS: Pantoprazole VIAL 40 MG VIAL IV SCH ×2 (08:47→22:45)
[2022-09-07] MEDS: Ondansetron 4 mg VIAL 2 MG/ML 2 ml VIAL IV PRN (22:45)
[2022-09-08] MEDS: Morphine ORAL.SOLN 10 mg 2 mg/ml UDC 5 ml (10 mg) PO PRN ×4 (03:32→21:04)
[2022-09-08] MEDS: Pantoprazole VIAL 40 MG VIAL IV SCH ×2 (08:44→21:04)
[2022-09-08] MEDS: Ondansetron 4 mg VIAL 2 MG/ML 2 ml VIAL IV PRN ×2 (08:44→21:04)
[2022-09-08] MEDS: Multivitamins/Minerals TAB PO SCH (08:44)
[2022-09-08] MEDS: Sucralfate 1 gm SUSP 1 GM/10 ML UDC PO SCH ×4 (08:44→21:03)
[2022-09-08] MEDS: Polyethylene Glycol 3350 17 GM PACKET PO SCH (08:45)
[2022-09-08 09:07] LABS: ABS Lymphocytes 1.5 10^3/ul (1.0-4.8); ABS Monocytes 0.3 10^3/ul (0-0.8); ABS Neutrophils 1.5 10^3/ul (1.5-7.7); Eosinophil % 0.6 %; Hematocrit 26 % (35-47); Hemoglobin 8.1 g/dL (12.0-16.0); Lymphocyte % 44.4 %; Mean Corpuscular HGB Conc 32 g/dL (31-36); Mean Corpuscular Hemoglobin 33 pg (27-31); Mean Corpuscular Volume 102 fL (80-97); Mean Platelet Volume 10.1 fL (7.4-10.4); Platelet Count 126 10^3/uL (150-450); Red Cell Distribution Width 18 % (10-15); White Blood Count 3.4 10^3/uL (3.5-10.8)
[2022-09-08 09:25] LABS: Calcium 6.9 mg/dL (8.6-10.3); Creatinine, Serum 0.44 mg/dL (0.51-0.95); Magnesium 1.5 mg/dL (1.9-2.7); eGFR CKD-EPI 121.5 (>60)
[2022-09-08] MEDS ORDERED: Magnesium Sulfate IV 3 GM in NS 0.9% 100 ml BAG 100 ML IVPB ONE (16:30)
[2022-09-09] MEDS: Morphine ORAL.SOLN 10 mg 2 mg/ml UDC 5 ml (10 mg) PO PRN ×3 (09:26→21:07)
[2022-09-09] MEDS: Pantoprazole VIAL 40 MG VIAL IV SCH ×2 (09:26→21:07)
[2022-09-09] MEDS: Sucralfate 1 gm SUSP 1 GM/10 ML UDC PO SCH ×4 (09:26→21:07)
[2022-09-09] MEDS: Multivitamins/Minerals TAB PO SCH (09:27)
[2022-09-09] MEDS: Polyethylene Glycol 3350 17 GM PACKET PO SCH (09:28)
[2022-09-09 11:45] LABS: ABS Lymphocytes 0.9 10^3/ul (1.0-4.8); ABS Monocytes 0.3 10^3/ul (0-0.8); ABS Neutrophils 1.8 10^3/ul (1.5-7.7); Eosinophil % 0.4 %; Hematocrit 26 % (35-47); Hemoglobin 8.2 g/dL (12.0-16.0); Mean Corpuscular HGB Conc 32 g/dL (31-36); Mean Corpuscular Hemoglobin 33 pg (27-31); Mean Corpuscular Volume 102 fL (80-97); Mean Platelet Volume 9.9 fL (7.4-10.4); Platelet Count 137 10^3/uL (150-450); Red Blood Count 2.52 10^6 /uL (3.70-4.87); Red Cell Distribution Width 17 % (10-15)
[2022-09-09] MEDS: Ondansetron 4 mg VIAL 2 MG/ML 2 ml VIAL IV PRN (12:10)
[2022-09-09 12:19] LABS: Blood Urea Nitrogen 10 mg/dL (6-24); CO2 Carbon Dioxide 31 mmol/L (22-32); Calcium 6.8 mg/dL (8.6-10.3); Chloride 106 mmol/L (101-111); Creatinine, Serum 0.37 mg/dL (0.51-0.95); Glucose 88 mg/dL (70-100); Magnesium 1.6 mg/dL (1.9-2.7); Potassium 3.9 mmol/L (3.5-5.0); Sodium 137 mmol/L (135-145); eGFR CKD-EPI 126.7 (>60)
[2022-09-09 16:14] LABS: Urine Appearance Cloudy; Urine Bilirubin Negative (Negative); Urine Blood Negative (Negative); Urine Color Yellow; Urine Glucose Negative (Negative); Urine Ketones Negative (Negative); Urine Nitrite Negative (Negative); Urine Protein Negative (Negative); Urine Specific Gravity 1.013 (1.002-1.030); Urine Urobilinogen Negative (Negative)
[2022-09-09 16:42] LABS: Urine Bacteria 1+ (Absent); Urine Red Blood Cell 1+(3-5/hpf) (Absent); Urine Squamous Epithelial Cell Present (Absent); Urine White Blood Cell 3+(>20/hpf) (Absent)
[2022-09-09] MEDS ORDERED: Magnesium Sulfate 2 gm BAG 2 GM/50 ML BAG IVPB ONE (16:56)
[2022-09-09] MEDS ORDERED: Heparin DRIP 25,000 UNITS BAG 25,000 UNITS/500 ML BAG IV SCH (17:00)
[2022-09-09 18:03] LABS: ABS Lymphocytes 1.3 10^3/ul (1.0-4.8); ABS Monocytes 0.3 10^3/ul (0-0.8); ABS Neutrophils 1.5 10^3/ul (1.5-7.7); Eosinophil % 0.4 %; Hematocrit 25 % (35-47); Hemoglobin 8.1 g/dL (12.0-16.0); Lymphocyte % 41.7 %; Mean Corpuscular HGB Conc 33 g/dL (31-36); Mean Corpuscular Hemoglobin 33 pg (27-31); Mean Corpuscular Volume 103 fL (80-97); Mean Platelet Volume 9.6 fL (7.4-10.4); Nucleated Red Blood Cells % 0.1; Platelet Count 136 10^3/uL (150-450); Red Blood Count 2.42 10^6 /uL (3.70-4.87); Red Cell Distribution Width 17 % (10-15); White Blood Count 3.1 10^3/uL (3.5-10.8)
[2022-09-09 18:38] LABS: Creatinine, Serum 0.42 mg/dL (0.51-0.95); eGFR CKD-EPI 122.9 (>60)
[2022-09-10 07:06] LABS: ABS Lymphocytes 1.2 10^3/ul (1.0-4.8); ABS Monocytes 0.2 10^3/ul (0-0.8); ABS Neutrophils 1.3 10^3/ul (1.5-7.7); Eosinophil % 0.7 %; Hematocrit 24 % (35-47); Hemoglobin 8.1 g/dL (12.0-16.0); Lymphocyte % 43.8 %; Mean Corpuscular HGB Conc 33 g/dL (31-36); Mean Corpuscular Hemoglobin 34 pg (27-31); Mean Corpuscular Volume 103 fL (80-97); Mean Platelet Volume 10.2 fL (7.4-10.4); Nucleated Red Blood Cells % 0.1; Platelet Count 129 10^3/uL (150-450); Red Blood Count 2.35 10^6 /uL (3.70-4.87); Red Cell Distribution Width 17 % (10-15); White Blood Count 2.8 10^3/uL (3.5-10.8)
[2022-09-10] MEDS: Sucralfate 1 gm SUSP 1 GM/10 ML UDC PO SCH ×4 (08:00→21:31)
[2022-09-10] MEDS: Morphine ORAL.SOLN 10 mg 2 mg/ml UDC 5 ml (10 mg) PO PRN ×3 (10:47→21:31)
[2022-09-10] MEDS: Multivitamins/Minerals TAB PO SCH (10:48)
[2022-09-10] MEDS: Pantoprazole VIAL 40 MG VIAL IV SCH (10:49)
[2022-09-10] MEDS: Polyethylene Glycol 3350 17 GM PACKET PO SCH (10:49)
[2022-09-10] MEDS: Enoxaparin 80 MG/0.8 ML SYR SUBCUT SCH (17:50)
[2022-09-11] MEDS: Enoxaparin 80 MG/0.8 ML SYR SUBCUT SCH ×2 (05:24→16:17)
[2022-09-11] MEDS: Morphine ORAL.SOLN 10 mg 2 mg/ml UDC 5 ml (10 mg) PO PRN ×3 (08:31→21:15)
[2022-09-11] MEDS: Polyethylene Glycol 3350 17 GM PACKET PO SCH (08:31)
[2022-09-11] MEDS: Sucralfate 1 gm SUSP 1 GM/10 ML UDC PO SCH ×4 (08:31→21:15)
[2022-09-11] MEDS: Multivitamins/Minerals TAB PO SCH (08:31)
[2022-09-11 12:13] LABS: Hematocrit 27 % (35-47); Hemoglobin 8.7 g/dL (12.0-16.0); Mean Corpuscular HGB Conc 32 g/dL (31-36); Mean Corpuscular Hemoglobin 33 pg (27-31); Mean Corpuscular Volume 104 fL (80-97); Mean Platelet Volume 9.9 fL (7.4-10.4); Platelet Count 148 10^3/uL (150-450); Red Blood Count 2.61 10^6 /uL (3.70-4.87); Red Cell Distribution Width 19 % (10-15); White Blood Count 2.8 10^3/uL (3.5-10.8)
[2022-09-11 12:59] LABS: Calcium 7.1 mg/dL (8.6-10.3); Creatinine, Serum 0.41 mg/dL (0.51-0.95); Magnesium 1.3 mg/dL (1.9-2.7); eGFR CKD-EPI 123.6 (>60)
[2022-09-11 13:35] LABS: ABS Monocytes 0.2 10^3/ul (0-0.8); ABS Neutrophils 1.5 10^3/ul (1.5-7.7); Eosinophil % 0.6 %; Lymphocyte % 36.3 %
[2022-09-11] MEDS ORDERED: Magnesium Sulfate IV 3 GM in NS 0.9% 100 ml BAG 100 ML IVPB ONE (13:50)
[2022-09-12] MEDS: Morphine ORAL.SOLN 10 mg 2 mg/ml UDC 5 ml (10 mg) PO PRN ×3 (02:26→12:37)
[2022-09-12] MEDS: Enoxaparin 80 MG/0.8 ML SYR SUBCUT SCH (05:36)
[2022-09-12 07:59] LABS: ABS Lymphocytes 1.2 10^3/ul (1.0-4.8); ABS Monocytes 0.2 10^3/ul (0-0.8); ABS Neutrophils 1.4 10^3/ul (1.5-7.7); Hematocrit 26 % (35-47); Hemoglobin 8.4 g/dL (12.0-16.0); Lymphocyte % 42.3 %; Mean Corpuscular HGB Conc 32 g/dL (31-36); Mean Corpuscular Hemoglobin 34 pg (27-31); Mean Corpuscular Volume 106 fL (80-97); Nucleated Red Blood Cells % 0.2; Platelet Count 145 10^3/uL (150-450); Red Blood Count 2.46 10^6 /uL (3.70-4.87); Red Cell Distribution Width 19 % (10-15); White Blood Count 2.8 10^3/uL (3.5-10.8)
[2022-09-12] MEDS: Polyethylene Glycol 3350 17 GM PACKET PO SCH (08:34)
[2022-09-12] MEDS: Sucralfate 1 gm SUSP 1 GM/10 ML UDC PO SCH ×2 (08:34→11:58)
[2022-09-12] MEDS: Multivitamins/Minerals TAB PO SCH (08:34)
[2022-09-12 08:38] LABS: Calcium 7.1 mg/dL (8.6-10.3); Magnesium 1.3 mg/dL (1.9-2.7); Potassium 4.4 mmol/L (3.5-5.0)
[2022-09-12 08:44] LABS: Creatinine, Serum 0.39 mg/dL (0.51-0.95); eGFR CKD-EPI 125.1 (>60)
[2022-09-12 11:22] VITALS: BP 89/50
== END 2022-09-12 14:52 | DRG 377 ==
LOC: ED 18:10 → SUATTDRO 08-26 07:48 → EDHOLD 08-26 07:48 → SSU 08-26 09:39
PROVIDERS: ADMIT Internal Medicine; ATTEND Internal Medicine

== ENCOUNTER 2022-11-19 11:57 | Observation (INO) ==
[2022-11-19] MEDS ORDERED: Lactated Ringers 1000 ml BAG 1,000 ML IV ONE (13:46)
[2022-11-19] MEDS ORDERED: Morphine 4 MG/ML VIAL (1 ml) IV ONE (14:30)
[2022-11-19] MEDS ORDERED: Ondansetron 4 mg VIAL 2 MG/ML 2 ml VIAL IV ONE (14:30)
[2022-11-19 14:31] LABS: ABS Lymphocytes 1.2 10^3/uL (1.0-4.8); ABS Monocytes 0.3 10^3/uL (0.0-0.9); ABS Neutrophils 2.3 10^3/uL (1.5-7.6); Eosinophil % 0.7 %; Hematocrit 30.5 % (35-45); Hemoglobin 10.5 g/dL (11.5-14.3); Lymphocyte % 30.1 %; Mean Corpuscular Hemoglobin 34.9 pg (27-33); Mean Corpuscular Hgb Conc 34.5 g/dL (31-36); Mean Corpuscular Volume 101.1 fL (80-97); Mean Platelet Volume 9.1 fL (7.5-11.2); Nucleated Red Blood Cells % 0.1 /100 WBC (0.0-0.4); Platelet Count 289 10^3/uL (150-450); Red Blood Count 3.01 10^6/uL (3.63-4.92); Red Cell Distribution Width 15.7 % (12-17); White Blood Count 3.9 10^3/uL (3.8-11.8)
[2022-11-19 14:45] LABS: Albumin 2.8 g/dL (3.2-5.2); Albumin/Globulin Ratio 1.1 (1-3); Calcium 8.3 mg/dL (8.6-10.3); Creatinine, Serum 0.54 mg/dL (0.51-0.95); Globulin 2.6 g/dL (2-4); Magnesium 1.4 mg/dL (1.9-2.7); Potassium 3.4 mmol/L (3.5-5.0); Total Bilirubin 0.5 mg/dL (0.2-1.0); Total Protein 5.4 g/dL (6.4-8.9); eGFR CKD-EPI 114.9 (>60)
[2022-11-19] MEDS ORDERED: Magnesium Sulfate 2 gm BAG 2 GM/50 ML BAG IVPB ONE (15:04)
[2022-11-19] MEDS ORDERED: Morphine 2 MG/ML SYRINGE IV ONE (15:43)
[2022-11-19] MEDS ORDERED: Diatrizoate Meg/Sod(CONTRAST) 30 ML ORAL.SOLN ONE (16:11)
[2022-11-19] MEDS: KCL 20 MEQ/100 ML IVPREMIX 20 MEQ/100 ML BAG IV SCH ×2 (16:37→18:35)
[2022-11-19] MEDS: Ondansetron 4 mg VIAL 2 MG/ML 2 ml VIAL IV PRN ×2 (16:50→20:35)
[2022-11-19] MEDS: Enoxaparin 60 MG/0.6 ML SYR SUBCUT SCH (18:35)
[2022-11-19] MEDS: Morphine ORAL CONCENTRATE 5 MG/0.25 ML ORAL.SYRIN SL PRN (20:35)
[2022-11-20] MEDS: Morphine ORAL CONCENTRATE 5 MG/0.25 ML ORAL.SYRIN SL PRN ×3 (05:00→18:19)
[2022-11-20] MEDS: Ondansetron 4 mg VIAL 2 MG/ML 2 ml VIAL IV PRN (05:01)
[2022-11-20] MEDS: Enoxaparin 60 MG/0.6 ML SYR SUBCUT SCH ×2 (05:02→18:19)
[2022-11-20 05:20] LABS: ABS Lymphocytes 1.2 10^3/uL (1.0-4.8); ABS Monocytes 0.4 10^3/uL (0.0-0.9); ABS Neutrophils 2.7 10^3/uL (1.5-7.6); Eosinophil % 0.7 %; Hematocrit 28.8 % (35-45); Hemoglobin 10.1 g/dL (11.5-14.3); Lymphocyte % 27.9 %; Mean Corpuscular Hemoglobin 35.1 pg (27-33); Mean Corpuscular Hgb Conc 34.9 g/dL (31-36); Mean Corpuscular Volume 100.6 fL (80-97); Mean Platelet Volume 8.5 fL (7.5-11.2); Nucleated Red Blood Cells % 0.1 /100 WBC (0.0-0.4); Platelet Count 279 10^3/uL (150-450); Red Blood Count 2.87 10^6/uL (3.63-4.92); Red Cell Distribution Width 16.7 % (12-17); White Blood Count 4.3 10^3/uL (3.8-11.8)
[2022-11-20 05:54] LABS: Calcium 7.9 mg/dL (8.6-10.3); Creatinine, Serum 0.57 mg/dL (0.51-0.95); Magnesium 1.8 mg/dL (1.9-2.7); Potassium 3.9 mmol/L (3.5-5.0); eGFR CKD-EPI 113.4 (>60)
[2022-11-20] MEDS ORDERED: Magnesium Hydroxide LIQ 30 ML UDC PO PRN (11:26)
[2022-11-20] MEDS ORDERED: Magnesium Sulfate 2 gm BAG 2 GM/50 ML BAG IVPB ONE (11:28)
[2022-11-20] MEDS: KCL 20 MEQ/100 ML IVPREMIX 20 MEQ/100 ML BAG IV SCH ×2 (13:51→15:57)
[2022-11-20 21:20] LABS: Urine Appearance Cloudy; Urine Bilirubin Negative (Negative); Urine Blood Negative (Negative); Urine Color Yellow; Urine Glucose Negative (Negative); Urine Ketones Negative (Negative); Urine Nitrite Negative (Negative); Urine Protein Negative (Negative); Urine Specific Gravity 1.009 (1.002-1.030); Urine Urobilinogen Negative (Negative)
[2022-11-20 21:25] LABS: Urine Amorphous Crystals Present (Absent); Urine Bacteria 1+ (Absent); Urine Red Blood Cell Absent (Absent); Urine Squamous Epithelial Cell Present (Absent); Urine White Blood Cell 3+(>20/hpf) (Absent)
[2022-11-21] MEDS: Morphine ORAL CONCENTRATE 5 MG/0.25 ML ORAL.SYRIN SL PRN ×2 (04:46→10:03)
[2022-11-21 05:53] LABS: Creatinine, Serum 0.47 mg/dL (0.51-0.95); Potassium 3.5 mmol/L (3.5-5.0); eGFR CKD-EPI 118.8 (>60)
[2022-11-21 05:56] LABS: Calcium 6.4 mg/dL (8.6-10.3)
[2022-11-21] MEDS: Enoxaparin 60 MG/0.6 ML SYR SUBCUT SCH (06:19)
[2022-11-21] MEDS ORDERED: CALCIUM GLUCONATE 1GM/50ML NS 1 GM/50 ML BAG IV ONE (06:43)
[2022-11-21 09:59] LABS: Magnesium 1.5 mg/dL (1.9-2.7)
[2022-11-21] MEDS: Ondansetron 4 mg VIAL 2 MG/ML 2 ml VIAL IV PRN (10:03)
[2022-11-21] MEDS ORDERED: Polyethylene Glycol 3350 17 GM PACKET PO SCH (11:00)
[2022-11-21] MEDS ORDERED: Senna TAB 8.6 mg TAB PO SCH (11:00)
[2022-11-21] MEDS ORDERED: Sucralfate 1 gm SUSP 1 GM/10 ML UDC PO SCH (11:30)
[2022-11-21] MEDS ORDERED: Magnesium Sulfate IV 1GM/100ML 1 GM/100 ML BAG IV ONE (12:29)
[2022-11-21 15:40] VITALS: BP 93/70
== END 2022-11-21 17:18 | disposition home or self-care (01) ==
LOC: EDHOLD 11:57 → ED 11:57 → SUATTDRO 15:09 → EDHOLD 11-20 16:15
PROVIDERS: ADMIT Internal Medicine; ATTEND Internal Medicine

== ENCOUNTER 2022-12-07 15:05 | Inpatient (IN) ==
[2022-12-07 16:22] LABS: ABS Basophils 0.1 10^3/uL (0.0-0.1); ABS Eosinophils 0.2 10^3/uL (0.0-0.5); ABS Lymphocytes 2.4 10^3/uL (1.0-4.8); ABS Monocytes 0.4 10^3/uL (0.0-0.9); ABS Neutrophils 3.8 10^3/uL (1.5-7.6); ABS Nucleated RBC 0.01 10^3/ul; Hemoglobin 12.5 g/dL (11.5-14.3); Lymphocyte % 35.4 %; Mean Corpuscular Hemoglobin 33.7 pg (27-33); Mean Corpuscular Hgb Conc 33.8 g/dL (31-36); Mean Corpuscular Volume 99.6 fL (80-97); Nucleated Red Blood Cells % 0.1 /100 WBC (0.0-0.4); Platelet Count 324 10^3/uL (150-450); Red Blood Count 3.72 10^6/uL (3.63-4.92); Red Cell Distribution Width 15.5 % (12-17); White Blood Count 6.8 10^3/uL (3.8-11.8)
[2022-12-07 16:42] LABS: Albumin 2.8 g/dL (3.2-5.2); C Reactive Protein 1.55 mg/L (<8.01); Calcium 7.4 mg/dL (8.6-10.3); Creatinine, Serum 0.64 mg/dL (0.51-0.95); Globulin 2.9 g/dL (2-4); Magnesium 1.2 mg/dL (1.9-2.7); Potassium 2.9 mmol/L (3.5-5.0); Total Bilirubin 0.6 mg/dL (0.2-1.0); Total Protein 5.7 g/dL (6.4-8.9); eGFR CKD-EPI 110.3 (>60)
[2022-12-07] MEDS ORDERED: Haloperidol 5 mg/ml SDV IV/IM 5 MG/ML AMP IV SLOW PU ONE (16:55)
[2022-12-07] MEDS ORDERED: Lactated Ringers 1000 ml BAG 1,000 ML IV ONE (16:55)
[2022-12-07] MEDS ORDERED: Prochlorperazine 5 mg/ml 2 ml VIAL (10 mg) IV ONE ×2 (16:57→19:46)
[2022-12-07] MEDS ORDERED: Acetaminophen IV 1 GM/100ML 1,000 MG/100 ML BAG IV ONE (16:59)
[2022-12-07] MEDS: Lactated Ringers 1000 ml BAG 1,000 ML IV ONE ×2 (17:04→17:18)
[2022-12-07] MEDS ORDERED: Iohexol 350 (CONTRAST) 500 ML MDV IV ONE (18:43)
[2022-12-07] MEDS: KCL 20 MEQ/100 ML IVPREMIX 20 MEQ/100 ML BAG IV SCH ×2 (19:08→21:16)
[2022-12-07] MEDS ORDERED: NS 0.9% 1000 ml BAG 1,000 ML IV ONE ×2 (19:38→19:43)
[2022-12-07] MEDS ORDERED: Magnesium Sulfate 2 gm BAG 2 GM/50 ML BAG IVPB ONE (19:43)
[2022-12-07 21:39] LABS: ABS Eosinophils 0.1 10^3/uL (0.0-0.5); ABS Lymphocytes 1.7 10^3/uL (1.0-4.8); ABS Monocytes 0.3 10^3/uL (0.0-0.9); ABS Neutrophils 2.2 10^3/uL (1.5-7.6); ABS Nucleated RBC 0.01 10^3/ul; Eosinophil % 3.3 %; Hemoglobin 9.8 g/dL (11.5-14.3); Lymphocyte % 39.3 %; Mean Corpuscular Hemoglobin 34.8 pg (27-33); Mean Corpuscular Hgb Conc 35.1 g/dL (31-36); Mean Corpuscular Volume 99.2 fL (80-97); Mean Platelet Volume 8.4 fL (7.5-11.2); Nucleated Red Blood Cells % 0.2 /100 WBC (0.0-0.4); Platelet Count 182 10^3/uL (150-450); Red Blood Count 2.83 10^6/uL (3.63-4.92); Red Cell Distribution Width 15.1 % (12-17); White Blood Count 4.3 10^3/uL (3.8-11.8)
[2022-12-07 21:55] LABS: Albumin 2.1 g/dL (3.2-5.2); Albumin/Globulin Ratio 1.1 (1-3); C Reactive Protein 1.23 mg/L (<8.01); Creatinine, Serum 0.51 mg/dL (0.51-0.95); Potassium 2.9 mmol/L (3.5-5.0); Total Bilirubin 0.5 mg/dL (0.2-1.0); Total Protein 4.1 g/dL (6.4-8.9); eGFR CKD-EPI 116.5 (>60)
[2022-12-07 22:00] LABS: Calcium 6.4 mg/dL (8.6-10.3)
[2022-12-07] MEDS ORDERED: Calcium Gluconate 2 GM in NS 0.9% 100 ml BAG 100 ML IVPB ONE (22:08)
[2022-12-07] MEDS ORDERED: Ondansetron 4 mg VIAL 2 MG/ML 2 ml VIAL IV PRN (23:41)
[2022-12-08] MEDS: Enoxaparin 60 MG/0.6 ML SYR SUBCUT SCH ×2 (02:45→17:59)
[2022-12-08] MEDS: Pantoprazole VIAL 40 MG VIAL IV SCH ×2 (02:48→10:50)
[2022-12-08] MEDS: KCL 20 MEQ/100 ML IVPREMIX 20 MEQ/100 ML BAG IV SCH ×3 (02:57→20:28)
[2022-12-08] MEDS ORDERED: Lactated Ringers 1000 ml BAG 1,000 ML IV ONE (03:31)
[2022-12-08] MEDS: Prochlorperazine 5 mg/ml 2 ml VIAL (10 mg) IV PRN ×3 (04:33→18:02)
[2022-12-08] MEDS: Morphine ORAL CONCENTRATE 5 MG/0.25 ML ORAL.SYRIN SL PRN ×3 (04:40→17:58)
[2022-12-08] MEDS: Levothyroxine 100 MCG/5 ML VIAL IV SCH (06:40)
[2022-12-09] MEDS ORDERED: Lactated Ringers 1000 ml BAG 1,000 ML IV ONE ×2 (02:32→20:05)
[2022-12-09] MEDS ORDERED: Ondansetron ODT 4 mg TAB 4 MG TAB SL PRN (03:48)
[2022-12-09] MEDS: Levothyroxine 100 MCG/5 ML VIAL IV SCH (06:28)
[2022-12-09] MEDS: Enoxaparin 60 MG/0.6 ML SYR SUBCUT SCH ×2 (06:31→19:16)
[2022-12-09] MEDS: Pantoprazole VIAL 40 MG VIAL IV SCH (10:55)
[2022-12-09] MEDS: Morphine ORAL CONCENTRATE 5 MG/0.25 ML ORAL.SYRIN SL PRN ×2 (17:34→22:36)
[2022-12-09 19:20] LABS: Anion Gap 8 mmol/L (2-16); Blood Urea Nitrogen 6 mg/dL (6-24); CO2 Carbon Dioxide 24 mmol/L (22-32); Calcium 7.2 mg/dL (8.6-10.3); Chloride 106 mmol/L (101-111); Creatinine, Serum 0.44 mg/dL (0.51-0.95); Glucose 76 mg/dL (70-100); Potassium 3.1 mmol/L (3.5-5.0); Sodium 138 mmol/L (135-145); eGFR CKD-EPI 120.7 (>60)
[2022-12-09 20:01] LABS: ABS Eosinophils 0.1 10^3/uL (0.0-0.5); ABS Lymphocytes 1.2 10^3/uL (1.0-4.8); ABS Monocytes 0.3 10^3/uL (0.0-0.9); ABS Neutrophils 1.7 10^3/uL (1.5-7.6); ABS Nucleated RBC 0.01 10^3/ul; Eosinophil % 2.6 %; Lymphocyte % 35.8 %; Mean Corpuscular Hemoglobin 34.1 pg (27-33); Mean Corpuscular Hgb Conc 34.5 g/dL (31-36); Mean Corpuscular Volume 98.8 fL (80-97); Nucleated Red Blood Cells % 0.2 /100 WBC (0.0-0.4); Platelet Count 215 10^3/uL (150-450); Red Blood Count 2.94 10^6/uL (3.63-4.92); Red Cell Distribution Width 15.4 % (12-17); White Blood Count 3.3 10^3/uL (3.8-11.8)
[2022-12-09 20:19] LABS: Magnesium 1.2 mg/dL (1.9-2.7)
[2022-12-09] MEDS: Prochlorperazine 5 mg/ml 2 ml VIAL (10 mg) IV PRN (20:28)
[2022-12-09 20:35] LABS: Prolactin 15.1 ng/mL (1.0-25.0)
[2022-12-09] MEDS: KCL 20 MEQ/100 ML IVPREMIX 20 MEQ/100 ML BAG IV SCH ×2 (20:35→23:10)
[2022-12-09 20:46] LABS: Phosphorus 2.3 mg/dL (2.5-5.0)
[2022-12-09] MEDS ORDERED: Magnesium Sulf 4 GM/100 ML IV 4,000 MG/100 ML BAG IVPB ONE (20:53)
[2022-12-09] MEDS ORDERED: Lactated Ringers 1000 ml BAG 1,000 ML IV SCH (21:00)
[2022-12-09 22:29] LABS: TSH Ultra Thyroid Stim Horm 2.78 mcIU/mL (0.34-5.60)
[2022-12-09 22:36] LABS: Total T3 30 ng/dL (87-178)
[2022-12-10 01:16] LABS: % Iron Saturation 75 % (15-55); .Transferrin < 75 mg/dL (203-362); Iron 79 ug/dL (50-212); Total Iron Binding Capacity 105 mcg/dL (250-450); Unsaturated Iron Binding 26 ug/dL
[2022-12-10] MEDS: KCL 20 MEQ/100 ML IVPREMIX 20 MEQ/100 ML BAG IV SCH (01:17)
[2022-12-10 01:34] LABS: Ferritin 403.8 ng/mL (11-307)
[2022-12-10 05:08] LABS: ABS Eosinophils 0.2 10^3/uL (0.0-0.5); ABS Lymphocytes 1.6 10^3/uL (1.0-4.8); ABS Monocytes 0.3 10^3/uL (0.0-0.9); ABS Neutrophils 1.2 10^3/uL (1.5-7.6); Eosinophil % 5.1 %; Hemoglobin 10.4 g/dL (11.5-14.3); Lymphocyte % 47.4 %; Mean Corpuscular Hemoglobin 34.3 pg (27-33); Mean Corpuscular Hgb Conc 34.7 g/dL (31-36); Mean Corpuscular Volume 98.7 fL (80-97); Mean Platelet Volume 8.5 fL (7.5-11.2); Nucleated Red Blood Cells % 0.1 /100 WBC (0.0-0.4); Platelet Count 206 10^3/uL (150-450); Red Blood Count 3.03 10^6/uL (3.63-4.92); Red Cell Distribution Width 15.4 % (12-17); White Blood Count 3.3 10^3/uL (3.8-11.8)
[2022-12-10 05:27] LABS: Albumin/Globulin Ratio 0.9 (1-3); Creatinine, Serum 0.47 mg/dL (0.51-0.95); Globulin 2.2 g/dL (2-4); Phosphorus 2.3 mg/dL (2.5-5.0); Potassium 4.2 mmol/L (3.5-5.0); Total Bilirubin 0.5 mg/dL (0.2-1.0); Total Protein 4.2 g/dL (6.4-8.9); eGFR CKD-EPI 118.8 (>60)
[2022-12-10] MEDS: Enoxaparin 60 MG/0.6 ML SYR SUBCUT SCH (05:49)
[2022-12-10] MEDS: Levothyroxine 100 MCG/5 ML VIAL IV SCH (05:49)
[2022-12-10 06:10] LABS: Magnesium 2.2 mg/dL (1.9-2.7)
[2022-12-10] MEDS ORDERED: CALCIUM GLUCONATE 1GM/50ML NS 1 GM/50 ML BAG IV ONE (08:00)
[2022-12-10] MEDS: Pantoprazole VIAL 40 MG VIAL IV SCH (08:36)
[2022-12-10] MEDS: Prochlorperazine 5 mg/ml 2 ml VIAL (10 mg) IV PRN (08:58)
[2022-12-10] MEDS: Morphine ORAL CONCENTRATE 5 MG/0.25 ML ORAL.SYRIN SL PRN ×2 (08:58→18:42)
[2022-12-10] MEDS ORDERED: Magnesium Hydroxide LIQ 30 ML UDC PO PRN (10:48)
[2022-12-10] MEDS ORDERED: ARIPiprazole LAUROXIL 441 MG/1.6 ML SYRINGE IM SCH (14:00)
[2022-12-10] MEDS ORDERED: Gadoteridol (CONTRAST) 279.3 MG/ML 10 ML IV ONE (22:00)
[2022-12-11 06:12] LABS: ABS Eosinophils 0.1 10^3/uL (0.0-0.5); ABS Lymphocytes 1.1 10^3/uL (1.0-4.8); ABS Monocytes 0.3 10^3/uL (0.0-0.9); ABS Neutrophils 2.1 10^3/uL (1.5-7.6); Eosinophil % 3.2 %; Hematocrit 26.9 % (35-45); Hemoglobin 9.3 g/dL (11.5-14.3); Lymphocyte % 30.5 %; Mean Corpuscular Hemoglobin 34.8 pg (27-33); Mean Corpuscular Hgb Conc 34.5 g/dL (31-36); Mean Corpuscular Volume 100.8 fL (80-97); Mean Platelet Volume 8.7 fL (7.5-11.2); Platelet Count 197 10^3/uL (150-450); Red Blood Count 2.67 10^6/uL (3.63-4.92); Red Cell Distribution Width 15.5 % (12-17); White Blood Count 3.7 10^3/uL (3.8-11.8)
[2022-12-11 06:41] LABS: Albumin 1.9 g/dL (3.2-5.2); Calcium 7.3 mg/dL (8.6-10.3); Creatinine, Serum 0.43 mg/dL (0.51-0.95); Magnesium 1.4 mg/dL (1.9-2.7); Phosphorus 2.3 mg/dL (2.5-5.0); Total Bilirubin 0.3 mg/dL (0.2-1.0); Total Protein 3.9 g/dL (6.4-8.9); eGFR CKD-EPI 121.4 (>60)
[2022-12-11] MEDS ORDERED: Magnesium Sulfate 2 gm BAG 2 GM/50 ML BAG IVPB ONE (09:21)
[2022-12-11] MEDS: Senna TAB 8.6 mg TAB PO SCH (09:43)
[2022-12-11] MEDS: Polyethylene Glycol 3350 17 GM PACKET PO SCH (09:43)
[2022-12-11] MEDS ORDERED: NS 0.9% IV ONE (10:00)
[2022-12-11] MEDS ORDERED: SODIUM PHOSPHATE IV ONE (10:00)
[2022-12-11 11:57] LABS: % Iron Saturation 52 % (15-55); .Transferrin < 75 mg/dL (203-362); Iron 55 ug/dL (50-212); Total Iron Binding Capacity 105 mcg/dL (250-450); Unsaturated Iron Binding 50 ug/dL
[2022-12-11 12:14] LABS: Ferritin 315.9 ng/mL (11-307)
[2022-12-11 12:17] LABS: Folate 6.12 ng/mL (5.90-24.80)
[2022-12-11 12:21] LABS: Vitamin B12 293 pg/mL (180-914)
[2022-12-11] MEDS: Morphine ORAL CONCENTRATE 5 MG/0.25 ML ORAL.SYRIN SL PRN ×2 (12:25→22:47)
[2022-12-12 05:48] LABS: ABS Eosinophils 0.1 10^3/uL (0.0-0.5); ABS Lymphocytes 1.1 10^3/uL (1.0-4.8); ABS Monocytes 0.3 10^3/uL (0.0-0.9); ABS Neutrophils 1.9 10^3/uL (1.5-7.6); Eosinophil % 3.9 %; Hematocrit 26.2 % (35-45); Lymphocyte % 31.3 %; Mean Corpuscular Hemoglobin 34.1 pg (27-33); Mean Corpuscular Hgb Conc 34.2 g/dL (31-36); Mean Corpuscular Volume 99.6 fL (80-97); Mean Platelet Volume 8.9 fL (7.5-11.2); Nucleated Red Blood Cells % 0.1 /100 WBC (0.0-0.4); Platelet Count 185 10^3/uL (150-450); Red Blood Count 2.63 10^6/uL (3.63-4.92); Red Cell Distribution Width 15.9 % (12-17); White Blood Count 3.5 10^3/uL (3.8-11.8)
[2022-12-12 06:03] LABS: Albumin 1.9 g/dL (3.2-5.2); Calcium 7.2 mg/dL (8.6-10.3); Creatinine, Serum 0.36 mg/dL (0.51-0.95); Magnesium 1.4 mg/dL (1.9-2.7); Phosphorus 3.1 mg/dL (2.5-5.0); Potassium 3.9 mmol/L (3.5-5.0); Total Bilirubin 0.3 mg/dL (0.2-1.0); Total Protein 3.9 g/dL (6.4-8.9); eGFR CKD-EPI 126.7 (>60)
[2022-12-12] MEDS ORDERED: Magnesium Sulf 4 GM/100 ML IV 4,000 MG/100 ML BAG IVPB ONE (07:53)
[2022-12-12] MEDS: Senna TAB 8.6 mg TAB PO SCH (10:18)
[2022-12-12] MEDS: Polyethylene Glycol 3350 17 GM PACKET PO SCH (10:19)
[2022-12-12] MEDS ORDERED: Cyanocobalamin INJ 1,000 MCG/ML VIAL 1 ML VIAL IM ONE (13:35)
[2022-12-12 15:07] VITALS: BP 87/63
== END 2022-12-12 15:55 | disposition home or self-care (01) | DRG 640 ==
LOC: EDHOLD 15:05 → ED 15:05 → SUATTDRO 23:12 → MEDTELE 12-08 03:10 → ICU 12-09 21:47 → SUATTDRO 12-09 21:50 → MED 12-10 20:18
PROVIDERS: ADMIT Hospitalist; ATTEND Internal Medicine

== ENCOUNTER 2022-12-22 10:03 | Observation (INO) ==
[2022-12-22] MEDS ORDERED: Lactated Ringers 1000 ml BAG 1,000 ML IV ONE (12:00)
[2022-12-22] MEDS ORDERED: HYDROmorphone 1 MG/1 ML SYRINGE IV ONE ×2 (12:00→13:44)
[2022-12-22] MEDS ORDERED: Prochlorperazine 5 mg/ml 2 ml VIAL (10 mg) IV ONE ×2 (12:01→14:43)
[2022-12-22 12:09] LABS: ABS Lymphocytes 1.2 10^3/uL (1.0-4.8); ABS Monocytes 0.3 10^3/uL (0.0-0.9); ABS Neutrophils 4.8 10^3/uL (1.5-7.6); Eosinophil % 0.2 %; Hematocrit 35.7 % (35-45); Hemoglobin 12.2 g/dL (11.5-14.3); Lymphocyte % 18.6 %; Mean Corpuscular Hemoglobin 34.1 pg (27-33); Mean Corpuscular Hgb Conc 34.1 g/dL (31-36); Mean Corpuscular Volume 100.1 fL (80-97); Mean Platelet Volume 8.4 fL (7.5-11.2); Platelet Count 316 10^3/uL (150-450); Red Blood Count 3.57 10^6/uL (3.63-4.92); Red Cell Distribution Width 16.2 % (12-17); White Blood Count 6.3 10^3/uL (3.8-11.8)
[2022-12-22 12:24] LABS: ALT 12 U/L (7-52); AST 19 U/L (13-39); Albumin 2.9 g/dL (3.2-5.2); Albumin/Globulin Ratio 0.9 (1-3); Alkaline Phosphatase 93 U/L (35-149); Anion Gap 10 mmol/L (2-16); Blood Urea Nitrogen 18 mg/dL (6-24); C Reactive Protein 2.21 mg/L (<8.01); CO2 Carbon Dioxide 27 mmol/L (22-32); Calcium 8.2 mg/dL (8.6-10.3); Chloride 104 mmol/L (101-111); Creatinine, Serum 0.65 mg/dL (0.51-0.95); Globulin 3.3 g/dL (2-4); Glucose 84 mg/dL (70-100); Lipase < 10 U/L (11.0-82.0); Magnesium 1.4 mg/dL (1.9-2.7); Phosphorus 3.6 mg/dL (2.5-5.0); Potassium 2.8 mmol/L (3.5-5.0); Sodium 141 mmol/L (135-145); Total Protein 6.2 g/dL (6.4-8.9); eGFR CKD-EPI 109.9 (>60)
[2022-12-22] MEDS ORDERED: Magnesium Sulfate 2 gm BAG 2 GM/50 ML BAG IVPB ONE (12:31)
[2022-12-22] MEDS ORDERED: KCL 10 MEQ/50 ML IVPREMIX 10 MEQ/50 ML BAG IV ONE (12:31)
[2022-12-22] MEDS ORDERED: Iohexol 350 (CONTRAST) 500 ML MDV IV ONE (12:37)
[2022-12-22] MEDS ORDERED: Polyethylene Glycol 3350 17 GM PACKET PO PRN (15:56)
[2022-12-22] MEDS ORDERED: Senna TAB 8.6 mg TAB PO PRN (15:56)
[2022-12-22] MEDS ORDERED: Ondansetron 4 mg VIAL 2 MG/ML 2 ml VIAL IV PRN (15:56)
[2022-12-22] MEDS: KCL 20 MEQ/100 ML IVPREMIX 20 MEQ/100 ML BAG IV SCH ×3 (16:41→23:32)
[2022-12-22] MEDS ORDERED: Acetaminophen IV 1 GM/100ML 1,000 MG/100 ML BAG IV PRN (16:51)
[2022-12-22] MEDS ORDERED: Morphine 2 MG/ML SYRINGE IV PRN (16:52)
[2022-12-22] MEDS: Lactated Ringers 1000 ml BAG 1,000 ML IV SCH (17:02)
[2022-12-22] MEDS: Sucralfate 1 gm SUSP 1 GM/10 ML UDC PO SCH ×2 (21:59)
[2022-12-23] MEDS: Lactated Ringers 1000 ml BAG 1,000 ML IV SCH (03:17)
[2022-12-23 07:08] LABS: ABS Eosinophils 0.1 10^3/uL (0.0-0.5); ABS Monocytes 0.2 10^3/uL (0.0-0.9); ABS Neutrophils 1.7 10^3/uL (1.5-7.6); Eosinophil % 2.9 %; Hematocrit 26.9 % (35-45); Hemoglobin 9.3 g/dL (11.5-14.3); Lymphocyte % 33.6 %; Mean Corpuscular Hemoglobin 34.5 pg (27-33); Mean Corpuscular Hgb Conc 34.6 g/dL (31-36); Mean Corpuscular Volume 99.7 fL (80-97); Mean Platelet Volume 8.3 fL (7.5-11.2); Platelet Count 215 10^3/uL (150-450); Red Cell Distribution Width 15.9 % (12-17)
[2022-12-23 07:24] LABS: Albumin 2.1 g/dL (3.2-5.2); Albumin/Globulin Ratio 0.9 (1-3); Calcium 7.5 mg/dL (8.6-10.3); Creatinine, Serum 0.4 mg/dL (0.51-0.95); Globulin 2.4 g/dL (2-4); Magnesium 1.6 mg/dL (1.9-2.7); Potassium 3.7 mmol/L (3.5-5.0); Total Bilirubin 0.5 mg/dL (0.2-1.0); Total Protein 4.5 g/dL (6.4-8.9); eGFR CKD-EPI 123.5 (>60)
[2022-12-23] MEDS: Sucralfate 1 gm SUSP 1 GM/10 ML UDC PO SCH ×4 (09:25→20:57)
[2022-12-23] MEDS: Senna TAB 8.6 mg TAB PO SCH (09:30)
[2022-12-23] MEDS: Polyethylene Glycol 3350 17 GM PACKET PO SCH (09:33)
[2022-12-23] MEDS ORDERED: Magnesium Sulfate 2 gm BAG 2 GM/50 ML BAG IVPB ONE (10:15)
[2022-12-23] MEDS ORDERED: Enoxaparin 80 MG/0.8 ML SYR SUBCUT SCH (21:00)
[2022-12-24] MEDS: Sucralfate 1 gm SUSP 1 GM/10 ML UDC PO SCH ×2 (09:06→11:34)
[2022-12-24] MEDS: Senna TAB 8.6 mg TAB PO SCH (09:06)
[2022-12-24] MEDS: Polyethylene Glycol 3350 17 GM PACKET PO SCH (09:07)
[2022-12-24] MEDS ORDERED: Magnesium Sulfate 2 gm BAG 2 GM/50 ML BAG IVPB ONE (09:58)
[2022-12-24 10:06] VITALS: BP 87/64
== END 2022-12-24 12:15 | disposition home or self-care (01) ==
LOC: ED 10:03 → EDHOLD 10:03 → MEDTELE 18:09
PROVIDERS: ADMIT Hospitalist; ATTEND Hospitalist